=== PATIENT | male | born 1955 | race African-American/Black ===

== ENCOUNTER 2017-06-18 05:18 | Inpatient (IN) | payer OTHER ==
[2017-06-18 05:50] LABS: #Basophils 0.1 thou/uL (0.0-0.2); #Eosinphils 0.4 thou/uL (0.0-0.7); #Lymphocytes 2.2 thou/uL (1.20-3.40); #Monocytes 1.1 thou/uL (0.11-0.59); #Neutrophils 7.5 thou/uL (1.40-6.50); %Basophils 0.6 % (0.0-1.0); %Eosinophils 3.3 % (0.0-10.0); %Lymphocytes 19.6 % (21.0-51.0); %Monocytes 9.8 % (0.0-10.0); %Neutrophils 66.7 % (42.0-75.0); Hemoglobin 15.9 g/dL (14.0-18.0); Mean Corpuscular HGB CONC 32.8 g/dL (32.0-36.0); Mean Corpuscular Hemoglobin 30.6 pg (27.0-31.0); Mean Corpuscular Volume 93.4 fl (80.0-94.0); Mean Platelet Volume 9.8 fL (7.4-10.4); Platelet Count 164 thou/uL (130-400); RBC Distribution Width 13.2 % (11.5-14.5); Red Blood Cell (RBC) Count 5.18 mill/uL (4.70-6.10); White Blood Cell (WBC) Count 11.2 thou/uL (4.8-10.8)
[2017-06-18] MEDS ORDERED: Nitroglycerin 2% Ointment 1 INCH/1 GM Packet ONE (06:04)
[2017-06-18 06:06] LABS: ALT (SGPT) 46 U/L (8-55); AST (SGOT) 39 U/L (5-34); Albumin 3.4 g/dL (3.5-5.0); Alkaline Phosphatase 158 U/L (40-150); Anion Gap 13 mmol/L (10-20); BUN (Urea Nitrogen) 19 mg/dL (8.4-25.7); Bilirubin, Total 0.4 mg/dL (0.2-1.2); CK (CPK) 137 U/L (30-200); Calc. Creatinine Clearance 0 mL/min (70-130); Calcium 8.6 mg/dL (7.8-10.44); Carbon Dioxide 16 mmol/L (22-29); Chloride 110 mmol/L (98-107); Estimated GFR-MDRD 59; Globulin 3.3 g/dL (2.4-3.5); Glucose 129 mg/dL (70-105); Potassium 4.7 mmol/L (3.5-5.1); Protein, Total 6.7 g/dL (6.0-8.3); Sodium 134 mmol/L (136-145)
[2017-06-18 06:11] LABS: CKMB 2.9 ng/mL (0-6.6); Troponin I 0.075 ng/mL (< 0.028)
[2017-06-18] MEDS ORDERED: Acetaminophen 500 MG TAB ONE (06:22)
--- NOTE | 2017-06-18 08:18 | RAD ---
CHEST 1 VIEW: Date: 06/18/17 HISTORY: 61-year-old male with history of chest pain for 2 days, difficulty breathing, hypertensive. COMPARISON: 01/17/11. FINDINGS: Postop midline sternotomy. Monitor leads overlie the chest. Bilateral alveolar and interstitial opaci ty changes throughout both lungs, particularly the mid and lower lung zones and perihilar regions wit h some bilateral pleural effusions, evidence for some bilateral vascular congestion and pulmonary davion ma. These findings are new from the prior 2010 study. IMPRESSION: Evidence for bilateral pulmonary edema and vascular congestion. Continue short-term follow-up. POS: ALEX
[2017-06-18] MEDS ORDERED: Ondansetron HCl/PF 4 MG/2 ML Vial IVP PRN ×2 (08:34→08:38)
[2017-06-18] MEDS ORDERED: Acetaminophen 325 MG TAB PO PRN ×2 (08:34→08:38)
[2017-06-18] MEDS ORDERED: Ondansetron ODT 4 MG TAB PO PRN ×2 (08:34→08:38)
[2017-06-18] MEDS ORDERED: Labetalol 100 MG/20 ML MDV SLOW IVP PRN (08:35)
[2017-06-18] MEDS ORDERED: Artificial Tears 18 DROP/0.9 ML EA EYE PRN (08:38)
[2017-06-18] MEDS ORDERED: Mag-Al 1200 mg/1200 mg/30 ML UDCUP PO PRN (08:38)
[2017-06-18] MEDS ORDERED: hydrALAZINE 20 MG/ML VIAL SLOW IVP PRN (08:38)
[2017-06-18] MEDS ORDERED: Sodium Chloride 0.65% Nasal 44 ML BOT EA NARE PRN (08:38)
[2017-06-18] MEDS ORDERED: Milk Of Magnesia 30 ML UDCUP PO PRN (08:38)
[2017-06-18] MEDS ORDERED: Eucerin (Mineral Oil/Petrolatum,White) 30 gm Jar TOP PRN (08:38)
[2017-06-18] MEDS ORDERED: Loperamide HCl 2 MG CAP PO PRN (08:38)
[2017-06-18] MEDS ORDERED: Senokot 8.6 MG TAB PO PRN (08:38)
[2017-06-18] MEDS ORDERED: Zolpidem Tartrate 5 MG TAB PO PRN (08:38)
[2017-06-18] MEDS ORDERED: Diabetic Tussin 200 MG/10 ML UDCUP PO PRN (08:38)
[2017-06-18] MEDS ORDERED: Loratadine 10 MG TAB PO PRN (08:38)
[2017-06-18] MEDS ORDERED: Chloraseptic Spray 180 ml Bottle PO PRN (08:38)
[2017-06-18] MEDS ORDERED: Furosemide 40 MG TAB PO SCH (09:00)
[2017-06-18] MEDS ORDERED: Heparin 5,000 UNITS/ML VIAL SC SCH ×2 (09:00)
[2017-06-18] MEDS ORDERED: Furosemide 20 MG TAB PO SCH (09:00)
[2017-06-18] MEDS ORDERED: Enoxaparin Sodium 80 MG/0.8 ML SYRINGE SC SCH (09:00)
[2017-06-18] MEDS ORDERED: HumaLOG 300 UNITS/3 ML VIAL SC PRN ×2 (09:14)
[2017-06-18] MEDS ORDERED: Dextrose 50% Abboject 50 ML SYRINGE SLOW IVP PRN (09:14)
[2017-06-18] MEDS ORDERED: Dextrose 5% in Water 1,000 ML IV PRN (09:14)
[2017-06-18] MEDS ORDERED: Lisinopril 5 MG TAB PO SCH (09:30)
[2017-06-18] MEDS ORDERED: glipiZIDE 5 MG TAB PO SCH (09:30)
[2017-06-18] MEDS ORDERED: Carvedilol 6.25 MG TAB PO SCH (09:30)
--- NOTE | 2017-06-18 09:42 | HP ---
PRIMARY CARE PHYSICIAN: Karen Acuña M.D. REASON FOR ADMISSION: Chest pain, dyspnea. HISTORY OF PRESENT ILLNESS: A 61-year-old -[place] male who has underlying history of diabetes type 2, hypertension, coronary artery disease, CABG, as well as bilateral above knee amputee who came to emergency room with a complaint of chest pain and dyspnea. Patient reports that chest pain started on Sunday. He was having intermittent chest pain on substernal area without any radiation associated with shortness of breath. He denies any nausea, vomiting, and diaphoresis. The patient is bilateral amputee and that is why he cannot tell me about chest pain gets worse with exertion, but he has orthopnea. He cannot lie down flat because of shortness of breath. He also complains bilateral lower extremity pain nearby amputation stump. He denies any fever or chills. He denies any flu-like illness. He does have cough which is dry in nature. He denies any sore throat, upper respiratory infection. He denies any constipation or diarrhea. He denies any melena or hematochezia. Patient reports that he is following Dr. Moraels as Cardiology and Dr. Riley Cardenas did bypass surgery several years ago. He moved to [place] and recently came back to our town. He is following Dr. Domenico Jones as a primary care physician. When patient presented to emergency room, he was hypertensive, tachycardic and his blood sugar was 196. The patient was given aspirin 324 mg and 3 doses of nitro by paramedics without any relief of his pain. In the emergency room, routine blood tests showed elevated troponins, elevated BNP and renal insufficiency. Patient reports that he is not aware of renal problem, but he has seen a manager meeting in the past. He denies taking NSAID. He denies any melena or hematochezia. He denies any UTI symptoms. He ambulates with electric wheelchair. ALLERGIES: No known drug allergy. CURRENT HOME MEDICATIONS: Glipizide 10 mg p.o. daily, Lipitor 10 mg p.o. daily , aspirin 81 mg p.o. daily, Lyrica 100 mg p.o. twice day. Patient did not bring medication. This is based on emergency room record. REVIEW OF SYSTEMS: The following complete review of systems was negative, unless otherwise mentioned in the HPI or below: Constitutional: Weight loss or gain, ability to conduct usual activities. Skin: Rash, itching. Eyes: Double vision, pain. ENT/Mouth: Nose bleeding, neck stiffness, pain, tenderness. Cardiovascular: Palpitations, dyspnea on exertion, orthopnea. Respiratory: Shortness of breath, wheezing, cough, hemoptysis, fever or night sweats. Gastrointestinal: Poor appetite, abdominal pain, heartburn, nausea, vomiting, constipation, or diarrhea. Genitourinary: Urgency, frequency, dysuria, nocturia. Musculoskeletal: Pain, swelling. Neurologic/Psychiatric: Anxiety, depression. Allergy/Immunologic: Skin rash, bleeding tendency. Please see my HPI for pertinent positive and negative. All other review of systems reviewed and negative except as mentioned in the HPI. PAST MEDICAL HISTORY: Diabetes type 2, hypertension, dyslipidemia, coronary artery disease with history of CABG, chronic congestive heart failure. PAST SURGICAL HISTORY: Bilateral above knee amputation, CABG x4, back surgery to remove the disk. PAST PSYCHIATRIC HISTORY: Reviewed and negative. SOCIAL HISTORY: The patient is abusing marijuana periodically. He smokes about 1 pack per day. He denies any other illicit drug abuse. He drinks alcohol on weekend. FAMILY HISTORY: Diabetes, hypertension, and coronary artery disease runs among several family members. EMERGENCY ROOM COURSE: Patient is given Lopressor 10 mg, nitropatch 1 inch and Tylenol 1 gram. PHYSICAL EXAMINATION: VITAL SIGNS: On arrival, blood pressure 188/98, pulse 104, respiratory rate 20 , temperature 98.4, saturation 95% on room air, and weight 67.8 kilograms. GENERAL: Patient is currently alert, awake, no obvious acute distress, hypertensive. HEAD: Normocephalic, atraumatic. EYES: Pupils round and reactive to light. Extraocular muscle intact. ENT: Oropharynx within normal limits. Moist mucous membranes. No oral lesions , no pharyngeal erythema, no exudate. NECK: Supple, no JVD, no thyromegaly, no carotid bruit, no jugular venous distention. LUNGS: Clear to auscultation. Midsternal scar noted. No wheeze, no rhonchi, no rales. CARDIAC: S1 and S2 regular. No gross murmur noted. No rub, no gallop. ABDOMEN: Soft, bowel sounds present, nontender, nondistended. No organomegaly , no mass, no suprapubic tenderness. BACK: Examination unremarkable, no CVA tenderness. EXTREMITIES: Upper extremity passive movements of all joints are normal. Lower extremity; bilateral above knee amputation noted. No edema. NEUROLOGIC: Patient is able to move all four limbs. No focal neurological deficit noted. SKIN: No skin rash. HEMATOLOGICAL SYSTEM: No lymphadenopathy. PSYCHIATRIC: Normal affect. IMAGING DATA AND SIGNIFICANT LABORATORY DATA: 1. EKG showing sinus tachycardia, premature atrial complexes, left atrial enlargement, nonspecific ST-T changes. 2. Chest x-ray based on my review, bilateral pulmonary edema and pulmonary vascular congestion. 3. CBC: WBC 11.2, hemoglobin 15.9, platelet 164. 4. BMP: Sodium 134, potassium 4.7, chloride 110, carbon dioxide 16, anion gap 13, BUN 19, creatinine 1.48, glucose 129, and calcium 8.6. 5. LFT: Protein 6.7, albumin 3.4, alkaline phosphatase is 158, AST 39, and ALT 46. ASSESSMENT AND PLAN/IMPRESSION: 1. Chest pain. Patient's chest pain description is atypical anginal. He has underlying coronary artery disease with coronary artery bypass grafting. Currently, troponin is elevated and he has nonspecific ST-T changes on EKG. The patient will need evaluation with serial cardiac enzymes. We will consult Cardiology for opinion. Further decision regarding stress test. We will defer to Cardiology. Meanwhile, we will continue with aspirin 325 mg p.o. daily, nitropatch q.8 hourly, Lipitor 10 mg p.o. at bedtime and will continue Lovenox 1 mg per kg subcu twice daily. check lipid profile for risk stratification. We will also check urine drug screen. 2. Acute on chronic congestive heart failure exacerbation, suspecting systolic heart failure from ischemic cardiomyopathy. The patient has orthopnea, elevated BNP and bilateral pulmonary edema and pulmonary vascular congestion. This patient will need Lasix 20 mg IV b.i.d. and we will monitor renal function and replace electrolytes as needed basis. We will obtain echocardiography to assess ejection fraction and other structural abnormality. We will control his blood pressure with nitropatch. We will also add Coreg 6.25 mg p.o. b.i.d. We will also add Lisinopril 5 mg p.o. daily. 3. Hypertension with hypertensive urgency. At this point, we are starting Lasix 20 mg IV b.i.d., nitropatch as well as we are also adding lisinopril and Coreg on his regimen and we will titrate blood pressure medications. 4. Coronary artery disease. We will continue aspirin 325 mg p.o. daily, Lipitor 10 mg p.o. at bedtime, nitro patch q.8 hourly and patient is also started on Coreg and lisinopril. Cardiology consulted. 5. Bilateral above knee amputations. The patient will need supportive care while in hospital. 6. Chronic kidney disease stage 3. We will monitor renal function. Avoid nephrotoxin agent. 7. Elevated troponin likely due to demand ischemia from hypertensive urgency versus angina. We will do serial cardiac enzymes x3 and rule out acute coronary syndrome. 8. Abnormal liver function tests, likely related with his alcohol abuse. We will check hepatitis profile tomorrow morning. 9. Mild metabolic acidosis. We will consider adding sodium bicarbonate 325 mg p.o. b.i.d. 10. Peripheral neuropathy. Continue Lyrica 50 mg p.o. twice day. 11. Diabetes type 2. We will continue glipizide 5 mg p.o. b.i.d., insulin as per sliding scale per protocol. Diabetic diet will be given. 12. Deep venous thrombosis prophylaxis; Lovenox 1 mg per kg subcu twice daily for possible angina. 13. Gastrointestinal prophylaxis, Pepcid 20 mg p.o. b.i.d. 14. Code status: The patient is FULL CODE. Patient does not have any surrogate decision maker. 15. Tobacco abuse disorder: Smoking cessation counselling given, will offer nicotin patch if needed. DISPOSITION PLAN: We are expecting patient's stay in the hospital more than 2 midnights. Plan of care discussed with the patient in detail. SHARATH
[2017-06-18 09:44] LABS: Troponin I 0.092 ng/mL (< 0.028)
[2017-06-18] MEDS: Enoxaparin Sodium 80 MG/0.8 ML SYRINGE SC SCH ×2 (09:48→21:57)
[2017-06-18] MEDS: Pregabalin 50 MG CAP PO SCH ×2 (09:49→21:54)
[2017-06-18] MEDS: Aspirin 325 MG TAB PO SCH (09:50)
[2017-06-18] MEDS: Famotidine 20 MG TAB PO SCH ×2 (09:50→21:56)
[2017-06-18] MEDS: HYDROcodone/Acetaminophen 5/325 mg Tablet PO PRN ×3 (11:37→21:58)
[2017-06-18 11:56] LABS: Platelet Count 156 thou/uL (130-400)
[2017-06-18 12:19] LABS: Troponin I 0.082 ng/mL (< 0.028)
[2017-06-18] MEDS: Nitroglycerin 2% Ointment 1 INCH/1 GM Packet TOP SCH ×2 (14:32→21:56)
[2017-06-18] MEDS: Furosemide 20 MG/2 ML VIAL SLOW IVP SCH (14:32)
[2017-06-18 16:59] LABS: Bilirubin Negative (Negative); Blood, Urine Negative (Negative); Clarity CLEAR (Clear); Glucose, Urine (Dipstick) Negative (Negative); Leukocyte Negative (Negative); Nitrite Negative (Negative); Protein, Urine (Dipstick) 30 mg/dL (Neg-Trace); Specific Gravity, Urine 1.012 (1.002-1.036); pH, Urine 5.5 (5.0-9.0)
[2017-06-18 17:03] LABS: Bacteria/HPF None Seen HPF (None Seen); Hyaline Casts/LPF 0-3 HYALINE CAST LPF (0-3 Hyaline); RBC/HPF 0-3 HPF (0-3); Squamous Epithelial None Seen HPF (0-3); WBC/HPF None Seen HPF (0-3)
[2017-06-18 17:09] LABS: Amphetamine Not Detected (NotDetected); Barbiturates Screen Not Detected (NotDetected); Benzodiazepine Screen Not Detected (NotDetected); Cocaine Metabolite Screen Detected (NotDetected); Medtox Control Line Valid? VALID (VALID); Medtox Reader # READER 1; Methadone Not Detected (NotDetected); Methamphetamine Not Detected (NotDetected); Opiate Screen Not Detected (NotDetected); Oxycodone Screen Not Detected (NotDetected); Phencyclidine (PCP) Not Detected (NotDetected); THC/Cannabinoid Screen Detected (NotDetected); Tricyclic Screen Not Detected (NotDetected)
[2017-06-18] MEDS: glipiZIDE 5 MG TAB PO SCH (17:40)
[2017-06-18] MEDS: Carvedilol 6.25 MG TAB PO SCH (17:41)
[2017-06-18] MEDS: Atorvastatin Calcium 10 MG TAB PO SCH (21:56)
--- NOTE | 2017-06-19 03:00 | CON ---
DATE OF CONSULTATION: 06/18/2017 HISTORY OF PRESENT ILLNESS: Prudencio Calderon is a 61-year-old black male, who in 04/2009 underwent CABG x4 with MORRIS to the LAD and vein grafts to diagonal, ramus and right posterior descending by Dr. Riley Cardenas. In 12/2009, he underwent flutter ablation. He apparently had some type of intervention performed in [place] and then moved back to this area and I saw him again in 2010. He underwent catheterization and MORRIS to LAD and vein graft to right posterior descending were patent. The diagonal and ramus grafts were occluded. One of the occluded grafts had a stent in it. Integrity 2.25 x 18 and 2.5 x 22 were placed in the [place] ramus. He apparently moved back to [place], I did not see him again. I saw him in the office in 04/19/2017 for the first time in many years. He was complaining of lower chest pressure while in bed, lasting 4-5 minutes. He did not have any chest discomfort with wheeling himself in his wheelchair. He denied any shortness of breath, nausea or vomiting. He underwent echocardiography, which revealed the study to be technically difficult. There was mild concentric left ventricular hypertrophy, ejection fraction of 45% to 50%, moderate mitral regurgitation, evidence for diastolic dysfunction and mild tricuspid regurgitation. He also underwent Lexiscan Cardiolite testing, which revealed no evidence of ischemia or fixed defect. There was severe proximal to distal septal hypokinesis (CABG) and mild global hypokinesis. There was normal myocardial thickening. He was seen again in the office on 05/15/2017. He did not bring his medications and apparently his access assoc had changed many of them and it was very difficult to make clinical decisions regarding what to do without knowing what medications he was taking. His cholesterol was elevated and his atorvastatin was increased from 40 to 80. He now presents complaining of increased shortness of breath. He also would have pleuritic chest pain with his shortness of breath. If he would take shallow breaths, he would not have any pain; however, with a deep breath, he would have a somewhat sharp pain in his chest. He denied any cough, fever, or chills. PAST MEDICAL HISTORY: Hypertension, hypercholesterolemia, diabetes, chronic kidney disease, atherosclerotic peripheral vascular disease. OPERATIONS: CABG, drug-eluting stent placement in the ramus, atrial flutter ablation, aortobifemoral bypass, bilateral iliac stents, back surgery, bilateral [id number] amputation. MEDICATIONS: Aspirin daily, atorvastatin 80 mg daily, chlorthalidone 25 daily, glipizide 2.5 daily, lisinopril 20 daily, metformin 1000 b.i.d., Lyrica 100 daily. ALLERGIES: None. SOCIAL HISTORY: He smokes 1 pack per day. He uses marijuana and cocaine. FAMILY HISTORY: Coronary artery disease. REVIEW OF SYSTEMS: Twelve-point review of systems is otherwise unremarkable. PHYSICAL EXAMINATION: VITAL SIGNS: Blood pressure 143/84, pulse of 93. HEENT: PERRL. NECK: Supple. CHEST: Clear. CARDIAC: S1 and S2 are normal, without any S3, S4 or murmurs. Carotid upstrokes are normal without bruits. ABDOMEN: Normal bowel sounds without tenderness or organomegaly. EXTREMITIES: Revealed bilateral AKA without edema. NEUROLOGIC: Grossly intact. SKIN: Warm and dry. LABORATORY AND DIAGNOSTIC DATA: EKG reveals sinus tachycardia with premature atrial beats, nonspecific T-wave changes. Urine drug screen is positive for cannabinoids and cocaine. Hemoglobin 15.2, hematocrit 48.4, white count 11,200 , and platelets 164,000. BNP 332.8, troponin I 0.092. Sodium 134, potassium 4.7, chloride 110, carbon dioxide 26, BUN 19, creatinine 1.48, AST 32, ALT 46. LDL is 84 on atorvastatin 40, which was recently increased in the office to atorvastatin 80. IMPRESSION: 1. Shortness of breath, improved with diuresis. 2. Pleuritic chest pain, normal cardiolite last month. 3. CABG x4 in 04/2009 with MORRIS to LAD and RPDA vein patent. Ramus and diagonal stents were occluded. GEO placed in the [place] in 11/2010. 4. History of flutter ablation after CABG. 5. Hypertension. 6. Hypercholesterolemia with Atorvastatin increased to 80mg recently. 7. Smoker. 8. Cocaine abuse. 9. Bilateral AKA, peripheral vascular disease. History of aortobifemoral bypass and iliac stents. 10. Diabetes. 11. Positive family history. PLAN: The patient will continue to be diuresed. Echocardiogram will be reviewed. It is unclear what medications were stopped by his access assoc in April; however, I imagine it was probably Lasix, although that is not listed amongst his medications when he was seen in the office. He also has been somewhat noncompliant with his medicines and what he is actually taking. I feel that we should increase his atorvastatin to 80 mg like it was done when he was seen in the office. Also, he has been started on carvedilol 6.25 b.i.d. He will continue to be diuresed and his renal function needs to be watched very closely. His chest pain is pleuritic in nature and does not sound like angina. He also had a recent normal Cardiolite scan in the office and I feel he should be treated medically with diuresis and improvement in his respiratory status. SHARATH
[2017-06-19 05:13] LABS: INR-International Normal Ratio 1.2; Prothrombin Time 15.1 SEC (12.0-14.7)
[2017-06-19 05:14] LABS: #Basophils 0.1 thou/uL (0.0-0.2); #Eosinphils 0.4 thou/uL (0.0-0.7); #Lymphocytes 2.1 thou/uL (1.20-3.40); #Monocytes 0.9 thou/uL (0.11-0.59); #Neutrophils 5.8 thou/uL (1.40-6.50); %Basophils 0.7 % (0.0-1.0); %Lymphocytes 22.7 % (21.0-51.0); %Monocytes 9.7 % (0.0-10.0); %Neutrophils 62.9 % (42.0-75.0); Hemoglobin 14.9 g/dL (14.0-18.0); Mean Corpuscular Hemoglobin 30.1 pg (27.0-31.0); Mean Platelet Volume 10.4 fL (7.4-10.4); PTT 50.2 SEC (22.9-36.1); Platelet Count 145 thou/uL (130-400); RBC Distribution Width 13.2 % (11.5-14.5); Red Blood Cell (RBC) Count 4.94 mill/uL (4.70-6.10); White Blood Cell (WBC) Count 9.2 thou/uL (4.8-10.8)
[2017-06-19 05:40] LABS: ALT (SGPT) 41 U/L (8-55); AST (SGOT) 39 U/L (5-34); Alkaline Phosphatase 129 U/L (40-150); Anion Gap 13 mmol/L (10-20); BUN (Urea Nitrogen) 23 mg/dL (8.4-25.7); Bilirubin, Total 0.4 mg/dL (0.2-1.2); Calc. Creatinine Clearance 48 mL/min (70-130); Calcium 8.4 mg/dL (7.8-10.44); Carbon Dioxide 17 mmol/L (22-29); Cardiac Risk 2.8 (Less than 4.5); Chloride 109 mmol/L (98-107); Cholesterol 125 mg/dl (< 200 Desired); Estimated GFR-MDRD 53; Globulin 3.2 g/dL (2.4-3.5); Glucose 60 mg/dL (70-105); HDL Cholesterol 45 mg/dL (>60 Neg Risk); LDL Cholesterol, Calculated 71 mg/dL; Magnesium 1.8 mg/dL (1.6-2.6); Potassium 4.4 mmol/L (3.5-5.1); Protein, Total 6.2 g/dL (6.0-8.3); Sodium 135 mmol/L (136-145); Triglycerides 45 mg/dL (Less than 150)
[2017-06-19] MEDS: Nitroglycerin 2% Ointment 1 INCH/1 GM Packet TOP SCH ×3 (06:17→20:47)
[2017-06-19] MEDS: Furosemide 20 MG/2 ML VIAL SLOW IVP SCH ×2 (06:18→14:41)
[2017-06-19] MEDS: Lisinopril 5 MG TAB PO SCH (08:16)
[2017-06-19] MEDS: Aspirin 325 MG TAB PO SCH (08:16)
[2017-06-19] MEDS: Pregabalin 50 MG CAP PO SCH ×2 (08:16→20:46)
[2017-06-19] MEDS: glipiZIDE 5 MG TAB PO SCH ×2 (08:17→17:05)
[2017-06-19] MEDS: Carvedilol 6.25 MG TAB PO SCH ×2 (08:17→18:05)
[2017-06-19] MEDS: Enoxaparin Sodium 80 MG/0.8 ML SYRINGE SC SCH ×2 (08:18→20:45)
[2017-06-19] MEDS: Famotidine 20 MG TAB PO SCH ×2 (10:18→10:53)
[2017-06-19] MEDS: HYDROcodone/Acetaminophen 5/325 mg Tablet PO PRN ×2 (10:54→20:51)
--- NOTE | 2017-06-19 11:07 | PDOC.PN ---
- Subjective Encounter Start Date: 06/19/17 Encounter Start Time: 12:49 Subjective: No new complaints -: No acute events overnight. - Objective Resuscitation Status: Resuscitation Status FULL:Full Resuscitation MAR Reviewed: Yes Vital Signs & Weight: Vital Signs (12 hours) Temp Pulse Resp BP Pulse Ox 06/19/17 08:21 98.0 F 85 18 134/90 98 06/19/17 08:09 98.0 F 85 18 06/19/17 04:15 98.8 F 84 18 130/78 91 L 06/18/17 23:43 98 F 90 16 139/72 94 L Weight Weight 142 lb I&O: 06/18/17 06/19/17 06/20/17 06:59 06:59 06:59 Intake Total 1128 Output Total 1450 Balance -322 Result Diagrams: 06/19/17 04:47 06/19/17 04:47 Additional Labs: Accuchecks 06/19/17 06/19/17 06/18/17 10:13 06:02 20:58 POC Glucose 118 H 73 175 H 06/18/17 06/18/17 16:54 11:49 POC Glucose 94 95 Phys Exam - Physical Examination Constitutional: NAD HEENT: PERRLA, moist MMs, sclera anicteric Neck: no JVD, supple, full ROM Respiratory: no wheezing, no rales, no rhonchi, clear to auscultation bilateral Cardiovascular: RRR, no significant murmur, no rub Gastrointestinal: soft, non-tender, no distention, positive bowel sounds Musculoskeletal: pulses present, edema present Neurological: non-focal Psychiatric: normal affect, A&O x 3 Skin: no rash, normal turgor Dx/Plan (1) Acute on chronic systolic (congestive) heart failure Code(s): I50.23 - ACUTE ON CHRONIC SYSTOLIC (CONGESTIVE) HEART FAILURE Status : Acute (2) S/P CABG x 4 Status: Chronic (3) Chest pain Code(s): R07.9 - CHEST PAIN, UNSPECIFIED Status: Acute Qualifiers: Chest pain type: intercostal pain Qualified Code(s): R07.82 - Intercostal pain (4) DM2 (diabetes mellitus, type 2) Status: Acute Qualifiers: Diabetes mellitus complication status: with kidney complications Diabetes mellitus complication detail: with chronic kidney disease Chronic kidney disease stage: stage 3 (moderate) (5) HLD (hyperlipidemia) Code(s): E78.5 - HYPERLIPIDEMIA, UNSPECIFIED Status: Chronic Qualifiers: Hyperlipidemia type: other hyperlipidemia Qualified Code(s): E78.4 - Other hyperlipidemia (6) Tobacco abuse Code(s): Z72.0 - TOBACCO USE Status: Chronic (7) Cocaine abuse Code(s): F14.10 - COCAINE ABUSE, UNCOMPLICATED Status: Chronic (8) S/P AKA (above knee amputation) bilateral Code(s): Z89.611 - ACQUIRED ABSENCE OF RIGHT LEG ABOVE KNEE; Z89.612 - ACQUIRED ABSENCE OF LEFT LEG ABOVE KNEE Status: Chronic (9) Acute on chronic kidney failure Code(s): N17.9 - ACUTE KIDNEY FAILURE, UNSPECIFIED; N18.9 - CHRONIC KIDNEY DISEASE, UNSPECIFIED Status: Acute Qualifiers: Acute renal failure type: unspecified Chronic kidney disease stage: stage 3 (moderate) Qualified Code(s): N17.9 - Acute kidney failure, unspecified; N18.3 - Chronic kidney disease, stage 3 (moderate); N18.3 - Chronic kidney disease, stage 3 (moderate) - Plan cont current plan of care, DVT proph w/lovenox Improving with diuresis -: Renal fuction improving also- likely had cardiorenal syndrome. -: f/u Cardiology recs. * . Review of Systems - Medications/Allergies Allergies/Adverse Reactions: Allergies Allergy/AdvReac Type Severity Reaction Status Date / Time No Known Allergies Allergy Verified 06/18/17 11:23 Medications: Current Medications Acetaminophen (Tylenol) 650 mg PO Q4H PRN PRN Reason: Headache/Fever or Pain Hydrocodone Bitart/Acetaminophen ([place] 5/325) 1 tab PO Q4H PRN PRN Reason: Moderate Pain (4-6) Last Admin: 06/19/17 10:54 Dose: 1 tab Al Hydroxide/Mg Hydroxide (Maalox) 30 ml PO Q6H PRN PRN Reason: Heartburn or Indigestion Artificial Tears (Tears Naturale) 0 drop EA EYE PRN PRN PRN Reason: Dry Eyes Aspirin (Aspirin) 325 mg PO DAILY [facility] Last Admin: 06/19/17 08:16 Dose: 325 mg Atorvastatin Calcium (Lipitor) 10 mg PO HS [facility] Last Admin: 06/18/17 21:56 Dose: 10 mg Carvedilol (Coreg) 6.25 mg PO BID-WM [facility] [place] Last Admin: 06/19/17 08:17 Dose: 6.25 mg Dextrose/Water (Dextrose 50%) 25 gm SLOW IVP PRN PRN PRN Reason: Hypoglycemia Enoxaparin Sodium (Lovenox) 70 mg SC 0900,2100 [facility] [place] Last Admin: 06/19/17 08:18 Dose: 70 mg Famotidine (Pepcid) 20 mg PO 0900 [facility] [place] Last Admin: 06/19/17 10:53 Dose: 20 mg Furosemide (Lasix) 20 mg SLOW IVP 0600,1400 [facility] [place] Last Admin: 06/19/17 06:18 Dose: 20 mg Glipizide (Glucotrol) 5 mg PO BID-AC [facility] [place] Last Admin: 06/19/17 08:17 Dose: 5 mg Glucagon (Glucagon) 1 mg IM PRN PRN PRN Reason: Hypoglycemia Guaifenesin (Robitussin Sf) 200 mg PO Q4H PRN PRN Reason: Cough Last Admin: 06/19/17 10:54 Dose: 200 mg Hydralazine HCl (Apresoline) 10 mg SLOW IVP Q4H PRN PRN Reason: Systolic BP > 180 Dextrose/Water (D5w) 1,000 mls @ 0 mls/hr IV .Q0M PRN; As Directed PRN Reason: Hypoglycemia Insulin Human Lispro (Humalog) 0 units SC .MODERATE SLIDING SC PRN PRN Reason: Moderate Correctional Scale Insulin Human Lispro (Humalog) 0 units SC .BEDTIME SLIDING SC PRN PRN Reason: Bedtime Correctional Scale Lisinopril (Zestril) 5 mg PO DAILY [facility] [place] Last Admin: 06/19/17 08:16 Dose: 5 mg Loperamide HCl (Imodium) 2 mg PO PRN PRN PRN Reason: Diarrhea/Loose Stools Loratadine (Claritin) 10 mg PO DAILYPRN PRN PRN Reason: Sinus Symptoms Magnesium Hydroxide (Milk Of Magnesium) 30 ml PO DAILYPRN PRN PRN Reason: Constipation Mineral Oil/White Petrolatum (Eucerin Cream) 0 gm TOP BIDPRN PRN PRN Reason: Dry Skin Nitroglycerin (Nitro-Bid 2% Ointment) 0.5 inch TOP Q8HR [facility] Last Admin: 06/19/17 06:17 Dose: 0.5 inch Ondansetron HCl (Zofran Odt) 4 mg PO Q6H PRN PRN Reason: Nausea/Vomiting Ondansetron HCl (Zofran) 4 mg IVP Q6H PRN PRN Reason: Nausea/Vomiting Phenol (Chloraseptic [place] 180 Ml Bot) 0 ml PO PRN PRN PRN Reason: Sore Throat Pregabalin (Lyrica) 50 mg PO BID [facility] Last Admin: 06/19/17 08:16 Dose: 50 mg Senna (Senokot) 2 tab PO HSPRN PRN PRN Reason: Constipation Sodium Chloride ([place] Nasal [place] 0.65%) 0 ml EA NARE QIDPRN PRN PRN Reason: Nasal Congestion Sodium Chloride (Flush - Normal Saline) 10 ml IVF Q12HR [facility] [place] Last Admin: 06/19/17 08:18 Dose: 10 ml Sodium Chloride (Flush - Normal Saline) 10 ml IVF PRN PRN PRN Reason: Saline Flush Last Admin: 06/19/17 06:18 Dose: 10 ml Zolpidem Tartrate (Ambien) 5 mg PO HSPRN PRN PRN Reason: Insomnia
[2017-06-19] MEDS: Atorvastatin Calcium 10 MG TAB PO SCH (20:46)
[2017-06-20 04:49] LABS: #Basophils 0.1 thou/uL (0.0-0.2); #Eosinphils 0.4 thou/uL (0.0-0.7); #Monocytes 1.1 thou/uL (0.11-0.59); %Basophils 1.3 % (0.0-1.0); %Eosinophils 5.1 % (0.0-10.0); %Lymphocytes 34.7 % (21.0-51.0); %Monocytes 12.3 % (0.0-10.0); %Neutrophils 46.6 % (42.0-75.0); Hemoglobin 15.2 g/dL (14.0-18.0); Mean Corpuscular HGB CONC 31.7 g/dL (32.0-36.0); Mean Corpuscular Volume 94.5 fl (80.0-94.0); Mean Platelet Volume 9.9 fL (7.4-10.4); Platelet Count 160 thou/uL (130-400); RBC Distribution Width 13.2 % (11.5-14.5); Red Blood Cell (RBC) Count 5.05 mill/uL (4.70-6.10); White Blood Cell (WBC) Count 8.6 thou/uL (4.8-10.8)
[2017-06-20 05:03] LABS: Anion Gap 13 mmol/L (10-20); BUN (Urea Nitrogen) 26 mg/dL (8.4-25.7); Calc. Creatinine Clearance 39 mL/min (70-130); Calcium 8.9 mg/dL (7.8-10.44); Carbon Dioxide 23 mmol/L (22-29); Chloride 106 mmol/L (98-107); Estimated GFR-MDRD 46; Glucose 64 mg/dL (70-105); Potassium 4.5 mmol/L (3.5-5.1); Sodium 137 mmol/L (136-145)
[2017-06-20] MEDS: Furosemide 20 MG/2 ML VIAL SLOW IVP SCH (06:05)
[2017-06-20] MEDS: Nitroglycerin 2% Ointment 1 INCH/1 GM Packet TOP SCH ×3 (06:05→20:52)
[2017-06-20] MEDS: Enoxaparin Sodium 80 MG/0.8 ML SYRINGE SC SCH (08:30)
[2017-06-20] MEDS: Aspirin 325 MG TAB PO SCH (08:30)
[2017-06-20] MEDS: Famotidine 20 MG TAB PO SCH (08:30)
[2017-06-20] MEDS: Carvedilol 6.25 MG TAB PO SCH ×3 (08:30→19:36)
[2017-06-20] MEDS: glipiZIDE 5 MG TAB PO SCH (08:30)
[2017-06-20] MEDS: Lisinopril 5 MG TAB PO SCH (08:30)
[2017-06-20] MEDS: Pregabalin 50 MG CAP PO SCH ×2 (08:36→19:43)
[2017-06-20] MEDS: HYDROcodone/Acetaminophen 5/325 mg Tablet PO PRN ×2 (08:37→19:44)
--- NOTE | 2017-06-20 13:54 | PDOC.PN ---
- Subjective Encounter Start Date: 06/20/17 Encounter Start Time: 13:57 Subjective: No complaints today. Feels well -: No acute events overnight. - Objective Resuscitation Status: Resuscitation Status FULL:Full Resuscitation MAR Reviewed: Yes Vital Signs & Weight: Vital Signs (12 hours) Temp Pulse Resp BP BP Pulse Ox 06/20/17 12:30 97.7 F 75 18 126/71 94 L 06/20/17 08:30 70 138/81 06/20/17 07:45 97.9 F 70 18 95 06/20/17 07:26 97.9 F 70 18 138/81 95 06/20/17 04:00 98.2 F 82 16 136/85 100 Weight Weight 139 lb 8 oz I&O: 06/19/17 06/20/17 06/21/17 06:59 06:59 06:59 Intake Total 1128 1502 Output Total 1450 0275 Balance -645 -2584 Result Diagrams: 06/20/17 04:30 06/20/17 04:30 Additional Labs: Accuchecks 06/20/17 06/20/17 06/19/17 12:07 06:04 21:01 POC Glucose 72 63 L 147 H 06/19/17 19:08 POC Glucose 105 Phys Exam - Physical Examination Constitutional: NAD HEENT: PERRLA, moist MMs, sclera anicteric, oral pharynx no lesions Neck: no JVD, supple, full ROM Respiratory: no wheezing, no rales, no rhonchi, clear to auscultation bilateral Cardiovascular: RRR, no significant murmur, no rub Gastrointestinal: soft, non-tender, no distention, positive bowel sounds Musculoskeletal: no edema Neurological: non-focal Psychiatric: normal affect Skin: no rash, normal turgor Dx/Plan (1) Acute on chronic systolic (congestive) heart failure Code(s): I50.23 - ACUTE ON CHRONIC SYSTOLIC (CONGESTIVE) HEART FAILURE Status : Acute Plan: Improving with diuresis. Will switch to PO furosemide and monitor (2) Acute on chronic kidney failure Code(s): N17.9 - ACUTE KIDNEY FAILURE, UNSPECIFIED; N18.9 - CHRONIC KIDNEY DISEASE, UNSPECIFIED Status: Acute Qualifiers: Acute renal failure type: unspecified Chronic kidney disease stage: stage 3 (moderate) Qualified Code(s): N17.9 - Acute kidney failure, unspecified; N18.3 - Chronic kidney disease, stage 3 (moderate); N18.3 - Chronic kidney disease, stage 3 (moderate) Plan: Renal function worsening, likely 2/2 diuretics, therapeutic Lovenox and ACEi. Will switch to PO furosemide, discontinue Lovenox, ACEi and monitor renal function. (3) S/P CABG x 4 Status: Chronic (4) DM2 (diabetes mellitus, type 2) Status: Acute Qualifiers: Diabetes mellitus complication status: with kidney complications Diabetes mellitus complication detail: with chronic kidney disease Chronic kidney disease stage: stage 3 (moderate) Comment: Controlled. (5) HLD (hyperlipidemia) Code(s): E78.5 - HYPERLIPIDEMIA, UNSPECIFIED Status: Chronic Qualifiers: Hyperlipidemia type: other hyperlipidemia Qualified Code(s): E78.4 - Other hyperlipidemia (6) Tobacco abuse Code(s): Z72.0 - TOBACCO USE Status: Chronic (7) Cocaine abuse Code(s): F14.10 - COCAINE ABUSE, UNCOMPLICATED Status: Chronic (8) S/P AKA (above knee amputation) bilateral Code(s): Z89.611 - ACQUIRED ABSENCE OF RIGHT LEG ABOVE KNEE; Z89.612 - ACQUIRED ABSENCE OF LEFT LEG ABOVE KNEE Status: Chronic (9) Chest pain Code(s): R07.9 - CHEST PAIN, UNSPECIFIED Status: Resolved Qualifiers: Chest pain type: intercostal pain Qualified Code(s): R07.82 - Intercostal pain - Plan cont current plan of care, DVT proph w/heparin Continue diuresis -: Monitor creatinine. If improved, then can be discharged tomorrow. -: Glipizide held- patient's glucose in the 60s but asymptomatic. -: Wean off O2 * . Review of Systems - Medications/Allergies Allergies/Adverse Reactions: Allergies Allergy/AdvReac Type Severity Reaction Status Date / Time No Known Allergies Allergy Verified 06/18/17 11:23 Medications: Current Medications Acetaminophen (Tylenol) 650 mg PO Q4H PRN PRN Reason: Headache/Fever or Pain Hydrocodone Bitart/Acetaminophen ([place] 5/325) 1 tab PO Q4H PRN PRN Reason: Moderate Pain (4-6) Last Admin: 06/20/17 08:37 Dose: 1 tab Al Hydroxide/Mg Hydroxide (Maalox) 30 ml PO Q6H PRN PRN Reason: Heartburn or Indigestion Artificial Tears (Tears Naturale) 0 drop EA EYE PRN PRN PRN Reason: Dry Eyes Aspirin (Aspirin) 325 mg PO DAILY [facility] Last Admin: 06/20/17 08:30 Dose: 325 mg Atorvastatin Calcium (Lipitor) 10 mg PO HS [facility] Last Admin: 06/19/17 20:46 Dose: 10 mg Carvedilol (Coreg) 6.25 mg PO TID [facility] Dextrose/Water (Dextrose 50%) 25 gm SLOW IVP PRN PRN PRN Reason: Hypoglycemia Enoxaparin Sodium (Lovenox) 70 mg SC 0900,2100 [facility] Last Admin: 06/20/17 08:30 Dose: 70 mg Famotidine (Pepcid) 20 mg PO 0900 [facility] Last Admin: 06/20/17 08:30 Dose: 20 mg Furosemide (Lasix) 20 mg PO DAILY [facility] Glucagon (Glucagon) 1 mg IM PRN PRN PRN Reason: Hypoglycemia Guaifenesin (Robitussin Sf) 200 mg PO Q4H PRN PRN Reason: Cough Last Admin: 06/19/17 10:54 Dose: 200 mg Hydralazine HCl (Apresoline) 10 mg SLOW IVP Q4H PRN PRN Reason: Systolic BP > 180 Dextrose/Water (D5w) 1,000 mls @ 0 mls/hr IV .Q0M PRN; As Directed PRN Reason: Hypoglycemia Insulin Human Lispro (Humalog) 0 units SC .MODERATE SLIDING SC PRN PRN Reason: Moderate [place] Scale Insulin Human Lispro (Humalog) 0 units SC .BEDTIME SLIDING SC PRN PRN Reason: Bedtime [place] Scale Loperamide HCl (Imodium) 2 mg PO PRN PRN PRN Reason: Diarrhea/Loose Stools Loratadine (Claritin) 10 mg PO DAILYPRN PRN PRN Reason: Sinus Symptoms Magnesium Hydroxide (Milk Of Magnesium) 30 ml PO DAILYPRN PRN PRN Reason: Constipation Mineral Oil/White Petrolatum (Eucerin Cream) 0 gm TOP BIDPRN PRN PRN Reason: Dry Skin Nitroglycerin (Nitro-Bid 2% Ointment) 0.5 inch TOP Q8HR [facility] Last Admin: 06/20/17 06:05 Dose: 0.5 inch Ondansetron HCl (Zofran Odt) 4 mg PO Q6H PRN PRN Reason: Nausea/Vomiting Ondansetron HCl (Zofran) 4 mg IVP Q6H PRN PRN Reason: Nausea/Vomiting Phenol (Chloraseptic [place] 180 Ml Bot) 0 ml PO PRN PRN PRN Reason: Sore Throat Pregabalin (Lyrica) 100 mg PO BID [facility] Last Admin: 06/20/17 08:36 Dose: 100 mg Senna (Senokot) 2 tab PO HSPRN PRN PRN Reason: Constipation Sodium Chloride ([place] Nasal [place] 0.65%) 0 ml EA NARE QIDPRN PRN PRN Reason: Nasal Congestion Sodium Chloride (Flush - Normal Saline) 10 ml IVF Q12HR [facility] Last Admin: 06/20/17 10:02 Dose: Not Given Sodium Chloride (Flush - Normal Saline) 10 ml IVF PRN PRN PRN Reason: Saline Flush Last Admin: 06/20/17 06:05 Dose: 10 ml Zolpidem Tartrate (Ambien) 5 mg PO HSPRN PRN PRN Reason: Insomnia
[2017-06-20] MEDS: Heparin 5,000 UNITS/ML VIAL SC SCH ×4 (15:14→19:37)
[2017-06-20] MEDS: Atorvastatin Calcium 10 MG TAB PO SCH (19:36)
--- NOTE | 2017-06-20 23:05 | CON ---
NEPHROLOGY CONSULTATION NOTE DATE OF CONSULTATION: 06/20/2017 CONSULTING PHYSICIAN: ____. REASON FOR CONSULTATION: Chronic kidney disease. REASON FOR ADMISSION: Shortness of breath. HISTORY OF PRESENT ILLNESS: This is a 61-year-old male with a history of chronic kidney dise ase, on follow up with Dr. Duran, type 2 diabetes and hypertension, who came to the hospital with shor tness of breath and had elevated creatinine. The patient is on diuresis and creatinine was slight wo rsening. Family requested to be seen by Nephrology. No fever or chills. No nausea or vomiting. Th e patient is feeling better. PAST MEDICAL HISTORY: Positive for CHF, CKD, type 2 diabetes, hypertension and hyperlipidemia. PAST SURGICAL HISTORY: Below knee amputation, CABG and back surgery. HOME MEDICATIONS: Reviewed. ALLERGIES: No known drug allergies. SOCIAL HISTORY: No smoking, alcohol or illicit drug abuse. FAMILY HISTORY: No history of any kidney disease. REVIEW OF SYSTEMS: The following complete review of systems was negative, unless otherwise mentioned in the HPI or below: Constitutional: Weight loss or gain, ability to conduct usual activities. Skin: Rash, itching. Eyes: Double vision, pain. ENT/Mouth: Nose bleeding, neck stiffness, pain, tenderness. Cardiovascular: Palpitations, dyspnea on exertion, orthopnea. Respiratory: Shortness of breath, wheezing, cough, hemoptysis, fever or night sweats. Gastrointestinal: Poor appetite, abdominal pain, heartburn, nausea, vomiting, constipation, or diarr hea. Genitourinary: Urgency, frequency, dysuria, nocturia. Musculoskeletal: Pain, swelling. Neurologic/Psychiatric: Anxiety, depression. Allergy/Immunologic: Skin rash, bleeding tendency. PHYSICAL EXAMINATION: GENERAL: This is a well-built male in no apparent distress. VITAL SIGNS: Temperature 97.7, pulse 75, respiratory rate 18 and blood pressure 126/71. HEENT: Atraumatic and normocephalic. Oral mucosa is moist. NECK: Supple. No masses. CARDIOVASCULAR: S1 and S2 heard. Rate and rhythm regular. RESPIRATORY: Clear. ABDOMEN: Soft. MUSCULOSKELETAL: 1+ edema. DERMATOLOGIC: No skin rash. NEUROLOGIC: Alert and awake. PSYCHIATRIC: Mood and affect normal. LABORATORY AND X-RAY FINDINGS: Potassium is 4.5 and creatinine is 1.8 from his baseline of 1.4-1.6. ASSESSMENT AND PLAN: 1. Acute kidney injury secondary to diuresis cardiorenal syndrome. We will follow. 2. Cardiorenal syndrome 3. Hypertension. 4. Edema. 5. Anemia, mild. 6. We will monitor renal function. Avoid nephrotoxins. Thank you for the consult.
[2017-06-21 05:05] LABS: #Eosinphils 0.4 thou/uL (0.0-0.7); #Lymphocytes 2.7 thou/uL (1.20-3.40); #Monocytes 1.3 thou/uL (0.11-0.59); #Neutrophils 4.3 thou/uL (1.40-6.50); %Basophils 0.4 % (0.0-1.0); %Lymphocytes 30.7 % (21.0-51.0); %Monocytes 14.6 % (0.0-10.0); %Neutrophils 49.3 % (42.0-75.0); Hemoglobin 14.6 g/dL (14.0-18.0); Mean Corpuscular HGB CONC 31.5 g/dL (32.0-36.0); Mean Corpuscular Hemoglobin 29.7 pg (27.0-31.0); Mean Platelet Volume 10.2 fL (7.4-10.4); Platelet Count 149 thou/uL (130-400); RBC Distribution Width 13.1 % (11.5-14.5); Red Blood Cell (RBC) Count 4.93 mill/uL (4.70-6.10); White Blood Cell (WBC) Count 8.7 thou/uL (4.8-10.8)
[2017-06-21 05:13] LABS: Hemoglobin A1c 5.6 % (4.0-6.0)
[2017-06-21 05:16] LABS: Anion Gap 8 mmol/L (10-20); BUN (Urea Nitrogen) 28 mg/dL (8.4-25.7); Calc. Creatinine Clearance 36 mL/min (70-130); Calcium 8.9 mg/dL (7.8-10.44); Carbon Dioxide 26 mmol/L (22-29); Chloride 106 mmol/L (98-107); Estimated GFR-MDRD 42; Glucose 97 mg/dL (70-105); Potassium 4.9 mmol/L (3.5-5.1); Sodium 135 mmol/L (136-145)
[2017-06-21] MEDS: Nitroglycerin 2% Ointment 1 INCH/1 GM Packet TOP SCH ×2 (05:50→15:26)
[2017-06-21] MEDS: Aspirin 325 MG TAB PO SCH (08:25)
[2017-06-21] MEDS: Heparin 5,000 UNITS/ML VIAL SC SCH ×4 (08:25→15:26)
[2017-06-21] MEDS: Famotidine 20 MG TAB PO SCH (08:25)
[2017-06-21] MEDS: Pregabalin 50 MG CAP PO SCH (08:25)
[2017-06-21] MEDS: HYDROcodone/Acetaminophen 5/325 mg Tablet PO PRN ×2 (08:26→15:32)
[2017-06-21] MEDS: Carvedilol 6.25 MG TAB PO SCH ×2 (08:27→15:27)
[2017-06-21] MEDS ORDERED: Furosemide 20 MG TAB PO SCH (09:00)
--- NOTE | 2017-06-21 09:19 | RAD ---
CHEST 1 VIEW: HISTORY: CHF. Dyspnea. COMPARISON: 06/18/17. FINDINGS: Cardiac silhouette is magnified and upper limits of normal in size. Pulmonary vasculature remains en gorged, but less so than on the prior study. Patchy infiltrates at the lung bases have improved. Me diastinum is midline with aortic calcification and postoperative changes. classroom monitor leads over lie the chest. IMPRESSION: Some interval improvement in pulmonary edema. POS: TPC
[2017-06-21 15:36] VITALS: BP 140/82
--- NOTE | 2017-06-21 15:56 | PDOC.PN ---
- Subjective Encounter Start Date: 06/21/17 Encounter Start Time: 15:54 Mr. Calderon was seen today in follow-up of CHF exacerbation. He says he feels much better and wants to go home. - Objective Resuscitation Status: Resuscitation Status FULL:Full Resuscitation MAR Reviewed: Yes Vital Signs & Weight: Vital Signs (12 hours) Temp Pulse Resp BP BP Pulse Ox 06/21/17 15:27 140/82 06/21/17 12:10 98.2 F 83 18 135/70 95 06/21/17 08:27 154/88 H 06/21/17 08:15 98.1 F 74 18 154/88 H 94 L 06/21/17 04:00 98.1 F 80 18 129/76 98 Weight Weight 139 lb 8 oz I&O: 06/20/17 06/21/17 06/22/17 06:59 06:59 06:59 Intake Total 1502 960 Output Total 3225 1700 Balance -1723 -740 Result Diagrams: 06/21/17 04:05 06/21/17 04:33 Additional Labs: Accuchecks 06/21/17 06/20/17 06/20/17 05:52 20:49 16:58 POC Glucose 92 171 H 58 L* Phys Exam - Physical Examination HEENT: PERRLA Respiratory: no wheezing, no rales, no rhonchi, clear to auscultation bilateral Cardiovascular: RRR, no significant murmur, no rub Gastrointestinal: soft, non-tender, positive bowel sounds Bilateral AKA Dx/Plan (1) CAD (coronary artery disease) Code(s): I25.10 - ATHSCL HEART DISEASE OF [place] CORONARY ARTERY W/O ANG PCTRS Status: Acute (2) Acute on chronic diastolic (congestive) heart failure Code(s): I50.33 - ACUTE ON CHRONIC DIASTOLIC (CONGESTIVE) HEART FAILURE Status : Acute (3) Acute on chronic kidney failure Code(s): N17.9 - ACUTE KIDNEY FAILURE, UNSPECIFIED; N18.9 - CHRONIC KIDNEY DISEASE, UNSPECIFIED Status: Acute Qualifiers: Acute renal failure type: unspecified Chronic kidney disease stage: stage 3 (moderate) Qualified Code(s): N17.9 - Acute kidney failure, unspecified; N18.3 - Chronic kidney disease, stage 3 (moderate); N18.3 - Chronic kidney disease, stage 3 (moderate) (4) DM2 (diabetes mellitus, type 2) Status: Acute Qualifiers: Diabetes mellitus complication status: with kidney complications Diabetes mellitus complication detail: with chronic kidney disease Chronic kidney disease stage: stage 3 (moderate) Comment: Controlled. (5) Cocaine abuse Code(s): F14.10 - COCAINE ABUSE, UNCOMPLICATED Status: Chronic - Plan * Acute on chronic diastolic heart failure- improved * Acute renal failure- likely from diuresing- discussed with Dr. Diaz- e can go home since he is insiting, and will follow-up as outpatient his renal function.
[2017-06-21 17:53] VITALS: TEMP 98
--- NOTE | 2017-06-21 18:12 | PRG ---
DATE OF SERVICE: 06/21/2017 NEPHROLOGY PROGRESS NOTE SUBJECTIVE: Patient was seen and examined at bedside and overnight events noted. Patient denies any shortness of breath or chest pain or palpitation. No history of nausea or vomiting or diarrhea or f ever or chills or cramps. OBJECTIVE: GENERAL: This is a well-built male in no apparent distress. VITAL SIGNS: Temperature 98.0, pulse 70, respiratory rate 18, blood pressure 140/82. HEENT: Atraumatic, normocephalic. Oral mucosa is moist. NECK: Supple. CARDIOVASCULAR: S1, S2 heard. Rate and rhythm regular. RESPIRATORY: Clear to auscultation. GASTROINTESTINAL: Abdomen is soft. MUSCULOSKELETAL: No tenderness. No edema. DERMATOLOGIC: No skin rash. NEUROLOGIC: Alert and awake and oriented x3. No focal neurologic deficits. Moving all the extremiti es. PSYCHIATRIC: Mood and affect normal. LABORATORY DATA: Potassium is 4.9, BUN 28, creatinine is 1.9. ASSESSMENT AND PLAN: 1. Acute kidney injury on chronic kidney disease, most likely from diuresis. Agree with reducing th e Lasix dose. Okay with discharging home 40 p.o. daily. Follow up with Dr. Duran. The patient wants to go home. 2. Cardiorenal syndrome as above. 3. Hypertension. 4. Edema. 5. Anemia. It is okay to discharge home. Follow with Dr. Duran in 1 week. Reduce Lasix dose 40 yuriy ly.
--- NOTE | 2017-06-22 01:08 | DIS ---
DATE OF ADMISSION: 06/18/2017 DATE OF DISCHARGE: 06/21/2017 PRIMARY CARE PHYSICIAN: Karen Acuña M.D. DISCHARGE DISPOSITION: Home. PRIMARY DISCHARGE DIAGNOSES: 1. Acute on chronic diastolic heart failure. 2. Acute renal failure. 3. Coronary artery disease. 4. Polysubstance abuse. 5. Diabetes mellitus, type 2. DISCHARGE MEDICATIONS: Include Lasix 40 mg daily, glipizide 2.5 mg daily, lisinopril 20 mg daily, ch lorthalidone 25 mg a day, atorvastatin 10 mg daily, and aspirin 81 mg daily. PROCEDURES DONE DURING ADMISSION: The patient had an echocardiogram, in which the ejection fraction was estimated at 45%-50%. There was [id number] mitral regurgitation and left ventricular fun ction was mildly depressed. CODE STATUS: FULL CODE. ALLERGIES: No known drug allergies. HOSPITAL COURSE: Mr. Calderon is a pleasant 61-year-old gentleman, who presented to the emergency room with complaints of chest pain and shortness of breath. He was admitted and evaluated by Cardiology. He was evaluated by Cardiology and had a recent Cardiolite, which was negative, and it was felt that it was not needed to repeat an evaluation for ischemic heart disease. He was placed on IV diuretics and improved over the course of the next few days with better shortness of breath and the chest pain resolved. He did have an elevation in his serum creatinine and this is likely as a result of the di uretics. He was adamant about leaving and going home, and as a result, he will be discharged home; h owever, he will need to follow up with Dr. Duran in a few days in order to recheck the renal function.
== END 2017-06-21 19:16 | disposition home or self-care (01) | DRG 291 ==
LOC: ERS 05:18 → OBSVTOIN 06:38 → 2NO 06:38
PROVIDERS: ADMIT Internal Medicine Infectious Disease; ATTEND Internal Medicine Infectious Disease
DX: I13.0 Hypertensive heart and chronic kidney disease with heart failure and stage 1 through stage 4 chronic kidney disease, or unspecified chronic kidney disease (principal); I50.33 Acute on chronic diastolic (congestive) heart failure; I47.2 Ventricular tachycardia; N17.9 Acute kidney failure, unspecified; E87.2 Acidosis; N18.3 Chronic kidney disease, stage 3 (moderate); E11.22 Type 2 diabetes mellitus with diabetic chronic kidney disease; E11.42 Type 2 diabetes mellitus with diabetic polyneuropathy; I25.10 Atherosclerotic heart disease of native coronary artery without angina pectoris; I16.0 Hypertensive urgency; Z79.84 Long term (current) use of oral hypoglycemic drugs; E78.5 Hyperlipidemia, unspecified; Z95.1 Presence of aortocoronary bypass graft; I70.209 Unspecified atherosclerosis of native arteries of extremities, unspecified extremity; F17.210 Nicotine dependence, cigarettes, uncomplicated; Z95.5 Presence of coronary angioplasty implant and graft; Z89.512 Acquired absence of left leg below knee; Z89.511 Acquired absence of right leg below knee; Z91.14 Patient's other noncompliance with medication regimen; F14.10 Cocaine abuse, uncomplicated; I34.0 Nonrheumatic mitral (valve) insufficiency; F12.10 Cannabis abuse, uncomplicated
CPT/HCPCS: 36415; 36416; 71045; 80048; 80053; 80061; 80306; 81001; 82550; 82553; 83036; 83735; 83880; 84484; 85025; 85610; 85730; 93005; 93306; 93798; 94760; 99406; A4216; J1644; J1650; J1940

== ENCOUNTER 2018-03-18 19:14 | Inpatient (IN) | payer OTHER ==
[~2018-03-18 19:14] MED LIST: ISOVUE-370 76%-LOCM 1 ML ONE
[2018-03-18 20:01] LABS: Lactate 1.84 mmol/L (0.50-2.20)
[2018-03-18 20:12] LABS: #Eosinphils 0.3 thou/uL (0.0-0.7); #Lymphocytes 1.6 thou/uL (1.20-3.40); #Monocytes 1.4 thou/uL (0.11-0.59); #Neutrophils 6.5 thou/uL (1.40-6.50); %Basophils 0.2 % (0.0-1.0); %Eosinophils 3.2 % (0.0-10.0); %Lymphocytes 16.6 % (21.0-51.0); %Monocytes 14.3 % (0.0-10.0); %Neutrophils 65.7 % (42.0-75.0); Hemoglobin 17.3 g/dL (14.0-18.0); Mean Corpuscular Hemoglobin 28.4 pg (27.0-31.0); Mean Corpuscular Volume 88.8 fL (78.0-98.0); Mean Platelet Volume 10.6 fL (7.4-10.4); Platelet Count 156 thou/uL (130-400); Red Blood Cell (RBC) Count 6.09 mill/uL (4.70-6.10); White Blood Cell (WBC) Count 9.9 thou/uL (4.8-10.8)
[2018-03-18 20:38] LABS: ALT (SGPT) 28 U/L (8-55); AST (SGOT) 33 U/L (5-34); Albumin 3.4 g/dL (3.5-5.0); Alkaline Phosphatase 193 U/L (40-150); Anion Gap 15 mmol/L (10-20); BUN (Urea Nitrogen) 19 mg/dL (8.4-25.7); Bilirubin, Total 0.7 mg/dL (0.2-1.2); CK (CPK) 151 U/L (30-200); Calc. Creatinine Clearance 0 mL/min (70-130); Calcium 8.8 mg/dL (7.8-10.44); Carbon Dioxide 24 mmol/L (22-29); Chloride 101 mmol/L (98-107); Estimated GFR-MDRD 42; Globulin 4.1 g/dL (2.4-3.5); Glucose 70 mg/dL (70-105); Lipase 35 U/L (8-78); Magnesium 1.8 mg/dL (1.6-2.6); Potassium 3.7 mmol/L (3.5-5.1); Protein, Total 7.5 g/dL (6.0-8.3); Sodium 136 mmol/L (136-145)
[2018-03-18 20:59] LABS: CKMB 3.5 ng/mL (0-6.6)
[2018-03-18] MEDS ORDERED: methylPREDNISolone Sod Succ/PF 125 MG/2 ML VIAL ONE (21:01)
--- NOTE | 2018-03-18 21:02 | RAD ---
RADIOGRAPH CHEST 1 VIEW: HISTORY: A 62-year-old male with chest pain and dyspnea. FINDINGS: There are no air space densities, pulmonary edema, pneumothorax, or cardiomegaly. The lateral costop hrenic angles are sharp. Interstitial markings are prominent at the lower lung zones. There are sourav rnotomy wires. IMPRESSION: 1. No acute cardiopulmonary findings. 2. Prominent interstitial markings. 3. Evidence of previous open heart surgery. mary [] POS: ELPIDIO
[2018-03-18 21:28] LABS: Bilirubin Negative (Negative); Blood, Urine Small (Negative); Clarity CLEAR (Clear); Glucose, Urine (Dipstick) 100 mg/dL (Negative); Leukocyte Negative (Negative); Nitrite Negative (Negative); Protein, Urine (Dipstick) 300 mg/dL (Neg-Trace); Specific Gravity, Urine 1.012 (1.002-1.036)
[2018-03-18 21:29] LABS: Bacteria/HPF None Seen HPF (None Seen); Hyaline Casts/LPF 0-3 HYALINE CAST LPF (0-3 Hyaline); Pathc Cast-AUWi Flag 0.43 (0-2.49); RBC/HPF 0-3 HPF (0-3); Squamous Epithelial 0-3 HPF (0-3); WBC/HPF 0-3 HPF (0-3)
--- NOTE | 2018-03-18 22:02 | CT ---
CT ARTERIOGRAM CHEST WITH IV CONTRAST AND 3D MIP IMAGING: HISTORY: Chest pain. Dyspnea. FINDINGS: There is good contrast opacification of the pulmonary arteries and thoracic aorta. Calcification in the arterial structures. Mild dependent parenchymal opacity at each posterior lung base, possibly re presenting atelectasis. Small amount of bilateral pleural fluid. IMPRESSION: 1. No CT evidence of pulmonary embolus. 2. Small bilateral pleural effusions. Cause is not evident. 3. Mild bibasilar atelectasis. 4. Atherosclerosis. POS: BST
[2018-03-18] MEDS ORDERED: Magnesium 2 GM/50 ML BAG (IN WATER) ONE (22:30)
[2018-03-18] MEDS ORDERED: Furosemide 40 MG/4 ML VIAL ONE (22:30)
[2018-03-18] MEDS ORDERED: Amiodarone HCl 150 MG in Dextrose 5% in Water 100 ML IVPB SCH (23:15)
[2018-03-19 00:11] LABS: Lactic Acid 1.8 mmol/L (0.5-2.2)
[2018-03-19 00:20] LABS: Troponin I 0.128 ng/mL (< 0.028)
[2018-03-19 01:14] VITALS: BMI 25.7
[2018-03-19 02:13] LABS: Troponin I 0.144 ng/mL (< 0.028)
[2018-03-19] MEDS ORDERED: HumaLOG 300 UNITS/3 ML VIAL SC PRN ×2 (03:28→17:00)
[2018-03-19] MEDS ORDERED: Senokot S 8.6-50 MG TAB PO PRN (03:28)
[2018-03-19] MEDS ORDERED: Bisacodyl 5 MG TAB PO PRN (03:28)
[2018-03-19] MEDS ORDERED: Acetaminophen 325 MG TAB PO PRN (03:28)
[2018-03-19] MEDS ORDERED: Dextrose 50% Abboject 50 ML SYRINGE SLOW IVP PRN (03:28)
[2018-03-19] MEDS ORDERED: Dextrose 5% in Water 1,000 ML IV PRN (03:28)
[2018-03-19] MEDS ORDERED: Zolpidem Tartrate 5 MG TAB PO PRN (03:28)
[2018-03-19] MEDS ORDERED: Diltiazem HCl 125 MG, Admixture Fee 1 EACH in Sodium Chloride 0.9% 100 ML IVPB SCH (03:45)
[2018-03-19] MEDS ORDERED: Heparin 25,000 units/D5W 500 ML IV SCH (04:00)
[2018-03-19 05:28] LABS: #Lymphocytes 0.5 thou/uL (1.20-3.40); #Monocytes 0.2 thou/uL (0.11-0.59); #Neutrophils 6.3 thou/uL (1.40-6.50); %Basophils 0.1 % (0.0-1.0); %Lymphocytes 7.3 % (21.0-51.0); %Monocytes 2.3 % (0.0-10.0); %Neutrophils 90.2 % (42.0-75.0); Hemoglobin 16.7 g/dL (14.0-18.0); Mean Corpuscular HGB CONC 32.3 g/dL (32.0-36.0); Mean Corpuscular Hemoglobin 28.5 pg (27.0-31.0); Mean Corpuscular Volume 88.1 fL (78.0-98.0); Mean Platelet Volume 10.8 fL (7.4-10.4); Platelet Count 150 thou/uL (130-400); RBC Distribution Width 13.7 % (11.5-14.5); Red Blood Cell (RBC) Count 5.86 mill/uL (4.70-6.10)
[2018-03-19 05:48] LABS: ALT (SGPT) 29 U/L (8-55); AST (SGOT) 31 U/L (5-34); Albumin 3.2 g/dL (3.5-5.0); Alkaline Phosphatase 189 U/L (40-150); Anion Gap 15 mmol/L (10-20); BUN (Urea Nitrogen) 20 mg/dL (8.4-25.7); Bilirubin, Total 0.7 mg/dL (0.2-1.2); Calc. Creatinine Clearance 34 mL/min (70-130); Calcium 8.8 mg/dL (7.8-10.44); Carbon Dioxide 21 mmol/L (22-29); Chloride 100 mmol/L (98-107); Estimated GFR-MDRD 39; Globulin 4.1 g/dL (2.4-3.5); Glucose 187 mg/dL (70-105); Potassium 4.5 mmol/L (3.5-5.1); Protein, Total 7.3 g/dL (6.0-8.3); Sodium 131 mmol/L (136-145)
[2018-03-19] MEDS: Famotidine 20 MG TAB PO SCH (07:43)
[2018-03-19] MEDS: Aspirin 81 mg Enteric Coated Tablet PO SCH (07:43)
[2018-03-19] MEDS: Famotidine/PF 20 mg/2ml Vial SLOW IVP SCH (07:46)
[2018-03-19] MEDS ORDERED: Pregabalin 50 MG CAP PO SCH (09:00)
[2018-03-19] MEDS ORDERED: Heparin 5,000 UNITS/ML VIAL SC SCH (09:00)
[2018-03-19] MEDS ORDERED: Atorvastatin Calcium 10 MG TAB PO SCH (09:00)
[2018-03-19] MEDS: HumaLOG 300 UNITS/3 ML VIAL SC PRN ×2 (11:54→16:35)
--- NOTE | 2018-03-19 13:14 | PDOC.EVN ---
Event Note - Event Note Event Note: Pt admitted to [facility], H&P dictated, but sees Dr. Carrington as PCP at [facility] so transferred care to our team this am. GAYE note to follow: HPI: Pt is a 62yo M with PMH of DM2, CAD s/p 4v CABG, Tobacco Abuse, HFrEF (EF 40-45% 10/2017), Cannabis Abuse, and HTN presenting for 1 wk hx of productive cough with reported subjective fevers at home and exertional angina that he describes as substernal, pressure like pain relieved by rest. He was found to have atrial arrhythmin in the 130's with PVC's in ED and started on diltiazem and Heparin ggt. He recieved Lasix 40mg IV for presumed CHF exacerbation with findings consistent on CXR- b/l pleural effusions. He was also given duonebs and prednisolone and started on Cefdinir. He also was found to have elevated troponins. He follows with Dr. Morales regularly, last seen 1 month ago. He reports daily cannabis use but denies cocaine use. ROS: General: Denies fever/chills, wt loss. HEENT: denies sore throat, nasal congestion, vision changes Resp: Reports chest congestion, SOB. Denies orthopnea CV: Reports exertional CP, palpitations, denies edema Abd: Denies n/v/c/d, abd pain MSK: Report phantom limb pain Neuro: Denies weakness or sensory deficit : Denies dysuria Psych: Denies depression, anxiety PMHx: As above FHx: none mentioned Social: smokes marijuana daily, denies other drug use. Occasional etoh use 1x/ 3wk. Smokes 1ppd for the last 10 years. Lives alone, completes ADL's on his own with minimal help (b/l AKA's) Surgical: b/l AKA, CABG, cervical disc surgery Medications: Per clinic chart Atorvastatin 20mg qHS Amitryptyline 25mg qHS Lasix 40mg qD Glipizide 2.5mg qD Chantix VS: T 99, P 107, R 16, O2sat 99% RA, BP 140/91 PE: General: Chronically ill AA in NAD, eating breakfast without difficulty HEENT: No oropharynx lesions or maxillary pressure Neck: no JVD or LAD Heart: Tachycardia with PVC's, no murmurs or extra heart sounds Lungs: ant auscultation with crackles at bases b/l and muffled breath sounds throughout, unlabored breathing Abd: soft, non-tender, BSx4 MSK: b/l AKA Skin: no rashes Neuro: moves all limbs, sensation intact Psych: AOx3 Labs: D-dimer 1.04 Trop 0.128, 0.144 Na 131 HCO3 21 Cr 2.11 (baseline 1.6) Glucose 187 Alk Phos 189 Imaging: CTA negative for PE, small b/l pleural effusions CXR prominent interstitial markings, b/l small pleural effusions A/P: 1. Bronchitis vs mild COPD exacerbation - no known dx of COPD, could also be 2/2 or worsened by chronic cannabis use - s/p steroids in ED, continue duonebs and cefdinir - Pulm consulted, appreciate recs 2. Mild CHF exacerbation - b/l Pleural effusions on CXR - echo 10/20 with EF 40-45% - s/p 40 IV Lasix in ED, restart home PO Lasix dose - daily wt, strict IO's 3. Atrial Arrhythmia - discussed with Dr. Bailey who reports known arrhythmia s/p ablation years back - Diltiazem and Heparin ggt discontinued by pulm, plan for PO diltiazem per Dr. Bailey for rate control since P>100. - Pt asymptomatic 4. Exertional Angina - Sees Dr. Morales regularly, trops trended upward, next trop pending - Could be related to acute lung disease 5. Elevated Trops - trend, no ST changes on EKG, likely demand 6. T2DM - last AIc in clinic is 6.5 on 11/2017, repeat pending - continue glipizide - expect rise in sugars with prednisolone in ED - SSI mild 7. HTN - not on any home meds at this time - continue to monitor 8. Tobacco Abuse - recently trying to quit with Chantix, no longer using, smoking 1ppd - encouraged cessation 9. Cannabis Abuse - discussed potential harmful effects and encouraged cessation - UDS pending 10. Phantom Leg Pain - continue Amitryptyline at bedtime 11. CAD s/p 4v CABG (1999) - daily ASA - increase Atorvastatin to 40mg daily Dispo: okay to transfer out of [facility] to telemetry. D/c pending respiratory and cards workup.
[2018-03-19 13:38] LABS: Hemoglobin A1c 6.8 % (4.0-6.0)
[2018-03-19 13:40] LABS: Amphetamine Detected (NotDetected); Barbiturates Screen Not Detected (NotDetected); Benzodiazepine Screen Not Detected (NotDetected); Cocaine Metabolite Screen Detected (NotDetected); Medtox Control Line Valid? VALID (VALID); Medtox Reader # READER 1; Methadone Not Detected (NotDetected); Methamphetamine Detected (NotDetected); Opiate Screen Not Detected (NotDetected); Oxycodone Screen Not Detected (NotDetected); Phencyclidine (PCP) Not Detected (NotDetected); THC/Cannabinoid Screen Detected (NotDetected); Tricyclic Screen Not Detected (NotDetected)
[2018-03-19 13:52] LABS: Troponin I 0.103 ng/mL (< 0.028)
--- NOTE | 2018-03-19 14:38 | CON ---
DATE OF CONSULTATION: 03/19/2018 TYPE OF CONSULTATION: Cardiac consult note. INDICATIONS FOR CONSULTATION: A 62-year-old gentleman with acute respiratory failure with probable pneumonia, COPD exacerbation with a long history of coronary artery disease and peripheral vascular disease and diabetes and hypertension and multiple other medical problems. We were asked to see him due to the slight elevation of cardiac enzymes, which most likely associated with demand ischemia due to his continued coughing and respiratory infections. He was admitted to the hospital earlier today due to continued coughing. He said he had a friend, who visited him from [place], and the person was very sick and he would not allow him to visit for very long until he would leave, and apparently, he became infected from that gentleman and now has probably pneumonia or respiratory tract infection, which started with upper respiratory tract infection, which resolved and had chronic coughing and now most likely congestion and possible pneumonia. His chest x-ray did show evidence of some congestion and some small pleural effusions with increased interstitial markings, but otherwise there were no significant abnormalities, but physical examination shows rhonchi as well as wheezing, most likely is suspicious for pneumonia or just significant bronchitis. His cardiac enzymes were slightly elevated. We were asked to see the patient. Also, he has some history of atrial flutter and fibrillation in the past. I believe he has undergone ablation also in the past. At this time, he has what appears to be atrial arrhythmias as the patient in mainly sinus rhythm but occasional PACs. I do not see any evidence of any flutter at this time. I believe he had a flutter ablation also, but at times appears to have intermittent atrial fibrillation. His past medical history is significant for coronary artery disease. He has undergone bypass surgery x4 in 2009. He had a MORRIS to the left anterior descending artery with saphenous vein graft to the diagonal ramus and to the right posterior descending artery. In 2009, he also had a flutter ablation. He states his last cardiac catheterization was in 2010. At which time, he had patent MORRIS to the LAD, and vein graft to the right posterior descending artery was also patent. The other grafts, the diagonal and ramus branch apparently were occluded and one of the occluded grafts also had a stent placement and most likely this was performed in [place], as the patient had lived there for a while and then moved back to this area. He has been followed by Dr. Morales in the office. He last was seen in the office on January 21, 2018. He also has a history in the past of left ventricular hypertrophy, ejection fraction most recently showed ejection fraction of 45% to 50%, this was performed in June of 2017 at [facility]. He also had moderate mitral valve regurgitation and diastolic dysfunction. He had a stress test at that time, which showed no evidence of ischemia. He has also been followed by the residential counselor. He has had some renal insufficiency and by evaluation of his laboratory data, there he does have some elevation in the creatinine of 2.1 with a BUN of 20. I believe Dr. Duran is his residential counselor. He has also has history of hypercholesterolemia, which has been followed. Occasionally, he would have some discomfort in his chest, but had no significant pain that would be felt to be ischemic in nature. He believes he has been having a low-grade fever at home before he brought with coughing, but he denies any other chest pain. He had been short of breath, but mainly associated with the cough. At this time, he is relatively comfortable, but still is coughing quite frequently during my evaluation. PAST MEDICAL HISTORY: Significant for coronary artery disease, hypertension, hypercholesterolemia, and diabetes. He has chronic kidney disease, atherosclerotic peripheral vascular disease. He has a history of bypass surgery. He has had drug-eluting stent placed in one of the saphenous vein graft I believe. He has had atrial flutter ablation. He also had apparently an aortobifemoral bypass. He has had bilateral iliac stent placements, back surgery. He has had bilateral AKAs performed. ALLERGIES: NONE. MEDICATIONS: Prior to admission included; 1. Atorvastatin 80 mg a day. 2. Furosemide 40 mg a day. 3. Glipizide ER 2.5 mg once a day. 4. Lyrica 100 mg daily. 5. Lisinopril 20 mg a day. 6. Aspirin 81 mg a day. 7. Chlorthalidone 25 mg one every day. His medications at this time include; 1. Amiodarone. 2. I believe he was started on infusion and then it was discontinued. 3. He has also been placed on diltiazem, which also was discontinued. 4. He was placed on some heparin, that was also stopped. 5. He has been given aspirin 81 mg a day. 6. Atorvastatin 10 mg a day. 7. He is on Omnicef. 8. He is on Pepcid, Lyrica, Tylenol, insulin, and other p.r.n. medications. SOCIAL HISTORY: He continued to smoke and occasionally uses marijuana and cocaine. FAMILY HISTORY: Positive for coronary artery disease. REVIEW OF SYSTEMS: A 12-point review of systems, he mainly complains of the cough. He has no new HEENT complaints. He has had no recent pulmonary complaints except for what is in the history of present illness at this time. He denies any GI or complaints. Musculoskeletal, he is non-ambulatory but is able to get around with a wheelchair. PHYSICAL EXAMINATION: VITAL SIGNS: Showed a temperature of 99, heart rate was 107 to 119, respiratory rate 16, and blood pressure is 140/91. GENERAL: Reveals a middle-aged gentleman, who is in no acute distress. He does have continued coughing. With deep inspiration, this exacerbates and he starts coughing again. HEENT: Shows the head to be normocephalic and atraumatic. He has a left carotid bruit noted. CHEST: Diffuse rhonchi noted. Expiratory wheezing noted. CARDIOVASCULAR: Heart sounds irregular. I cannot hear any gross murmurs, heaves, thrills, bruits, or rubs. There is increased airway noise, which may be obstructing the auscultatory findings. ABDOMEN: Soft and nontender. Positive bowel sounds are present. He has bilateral AKAs. Femoral pulses are present with bilateral femoral bruits. NEUROLOGIC: The patient appears to be grossly intact. LABORATORY DATA: Shows creatinine was 2.1, potassium was 4.5, BUN is 20. WBC was 7, hemoglobin 16.7. His troponin I was 0.012, increased up to 0.14. Chest x-ray showed no significant abnormality except for some increased interstitial markings. EKG showed no acute ST-segment changes, but evidence of atrial arrhythmias. IMPRESSION: 1. Most likely bronchitis and pneumonia, acute respiratory distress or failure, which does not require intubation. Most likely is significant bronchitis. O2 saturations were within normal limits. His overall cardiac status appears to be stable despite having a slight elevation of cardiac enzymes, which most likely due to demand ischemia. His BNP was 247, which is slightly elevated, but again may be due to some congestive heart failure. He does have a history of diastolic heart failure. This also will increase the BNP. 2. History of coronary artery disease, which appears to be relatively stable at this time. 3. History of atrial arrhythmias. We will continue to follow this and actually put him on a low dose of diltiazem and see whether or not this will suppress some of the atrial arrhythmias even. 4. History of diabetes, this will be dealt with rather primary care service, it is poorly controlled at this time. The blood sugar is 357. 5. History also of chronic hepatitis C. 6. History of bypass, status post bypass surgery due to his coronary artery disease. 7. Status post femoral-popliteal bypass surgery, the patient has bilateral [id number] amputation. 8. Hypertension. Blood pressure is under reasonably controlled at this time, it was slightly elevated. At this time, we would continue to follow the patient with you but will try to start low dose of antiarrhythmics for suppression of his atrial flutter or atrial arrhythmias. We would suggest we repeat the echocardiogram since his last echocardiogram was performed in June of 2017 and this did show evidence of mild decrease in left ventricular systolic function. Ejection fraction of 45% to 50% with some left atrial dilatation. He also at that time had [id number]-[id number] mitral valve regurgitation. Further care of the patient will be by Dr. Morales when he visits with the patient tomorrow. Job ID: [id number]
--- NOTE | 2018-03-19 17:25 | CON ---
DATE OF CONSULTATION: 03/19/2018 TIME SPENT: This accomplished 70 minutes, of that time greater than 50% was spent with the patient or on the patient's unit in the hospital. REASON FOR CONSULTATION: IMCU care. HISTORY OF PRESENT ILLNESS: The patient is a 62-year-old male, who came in last night with increasing shortness of breath over a week. It is not clear to me why he is in the IMCU at this time other than the fact that he is on a Cardizem drip. He did not require oxygen supplementation or BiPAP. I believe that his blood pressure was initially elevated when he came in. He says he has been short of breath over the last two or three days. He has coughed up some greenish sputum. He smokes half-pack per day. He has never been diagnosed with any lung problems in the past that he is aware of. PAST MEDICAL HISTORY: 1. Coronary artery disease. 2. Peripheral vascular disease. 3. Hyperlipidemia. 4. Diabetes mellitus. 5. Chronic kidney disease. PAST SURGICAL HISTORY: 1. Coronary artery bypass grafting surgery. 2. Bilateral qsbke-nlu-iivu amputations. 3. Atrial flutter ablation. 4. Aortobifemoral bypass. 5. Bilateral iliac stents. 6. Drug-eluting cardiac stent. ALLERGIES: NONE. SOCIAL HISTORY: Half-pack per day smoker. He has a history of cocaine and marijuana use in the past. FAMILY MEDICAL HISTORY: Unremarkable. REVIEW OF SYSTEMS: 12-point review of systems is otherwise negative. MEDICATIONS: Prior to admission, these were listed on the home medication section on the chart. He is on 1. Lyrica. 2. Atorvastatin. 3. Aspirin. 4. Glipizide. 5. Lisinopril. 6. Furosemide. 7. Chlorthalidone. PHYSICAL EXAMINATION: VITAL SIGNS: Temperature is 99.0, pulse 107, respirations 16, O2 saturation 99% on room air, blood pressure 140/91. HEENT: Pupils react, sclerae icteric. Oropharynx clear. NECK: Without adenopathy or JVD. LUNGS: He has crackles in both bases. CARDIAC: S1 and S2 regular with 2/6 systolic murmur at the left sternal border. ABDOMEN: Soft and nontender. EXTREMITIES: Bilateral htvmk-rid-dojx amputations. LABORATORY DATA: White blood cell count 7, hematocrit 51.6, platelet count 150. Sodium 131, potassium 4.5, chloride 100, CO2 of 21, BUN 20, creatinine 2.1, glucose 187. His x-ray showed cephalization of flow. His BNP was 247. ASSESSMENT: 1. Congestive heart failure-acute diastolic. 2. Bronchitis. 3. Tobacco abuse. RECOMMENDATIONS: 1. This patient could easily be transferred out to the floor. I doubt that he needs the Cardizem infusion. 2. I would start a general antibiotic for the bronchitis symptoms and apply nebulization treatments as needed. 3. He was told to stop smoking. Job ID: [id number]
--- NOTE | 2018-03-19 19:32 | CON ---
DATE OF CONSULTATION: 03/19/2018 TYPE OF CONSULTATION: Nephrology. REASON FOR CONSULTATION: Elevated creatinine. HISTORY OF PRESENT ILLNESS: This is a very pleasant 62-year-old gentleman followed by me in clinic, presented to the hospital for shortness of breath. The patient was given IV Lasix with improvement in breathing. The patient had a baseline creatinine of 1.7 in January which has increased to 2.1. The patient denies headache, numbness, tingling, weakness, or chest pain. PAST MEDICAL HISTORY: Significant for hypertension, coronary artery disease, CABG, anemia, hyperlipidemia, below-knee amputation, back surgery. SOCIAL HISTORY: No alcohol or drug use. FAMILY HISTORY: Negative for ESRD. ALLERGIES: REVIEWED. HOME MEDICATIONS: List reviewed. REVIEW OF SYSTEMS: 15-point review of system was performed and was negative except for positives noted above. GENERAL: HEAD: NECK: No swelling or lumps. NOSE: No epistaxis or discharge. EYES: No diplopia or pain. RESPIRATORY: CARDIOVASCULAR: GASTROINTESTINAL: /GAS LEAK TESTER: MUSCULOSKELETAL: No joint pain. NEUROPSYCHIATRIC SYSTEMS: No suicidal ideation. No ideation. SKIN: Denies any rash or ulcer. CONSTITUTIONAL: No fever or chills. PHYSICAL EXAMINATION: GENERAL: The patient is awake, alert, in no acute distress. VITAL SIGNS: Afebrile. Pulse 99, breathing 16, blood pressure 140/91. GENERAL APPEARANCE AND MENTAL STATUS: Fair. HEAD/NECK: Normocephalic. Atraumatic. EYES: EOMI. No deformity. EARS: Clear. No ulcers. NOSE: Intact. No lesions. MOUTH: Clear. No discharge. THROAT: Clear. No exudate. LUNGS: Clear. No crackles. CARDIAC: S1, S2. No rub. ABDOMEN: Benign. Bowel sounds positive. GENITALIA/RECTUM: Weinberg absent. BACK/EXTREMITIES: Edema 0+. NEUROLOGICAL: Alert and motor intact. SKIN: LYMPHATICS: LABORATORY DATA: Labs show creatinine 2.1. ASSESSMENT AND PLAN: 1. Stage 3 chronic kidney disease, stable. 2. Hypertension, stable. 3. Anemia, stable. 4. Congestive heart failure, management per primary team. No indication for dialysis. Job ID: [id number]
[2018-03-19] MEDS ORDERED: Atorvastatin Calcium 40 MG TAB PO SCH (21:00)
[2018-03-19] MEDS ORDERED: Diltiazem HCl SR 60 mg Capsule PO SCH (21:00)
[2018-03-19] MEDS: Benzonatate 100 MG CAP PO SCH (21:04)
[2018-03-19] MEDS: Amitriptyline HCl 25 MG TAB PO SCH (21:05)
[2018-03-19] MEDS: guaiFENesin ER 600 MG TAB PO SCH (21:05)
[2018-03-20] MEDS ORDERED: Digoxin 0.5 MG/2 ML AMP SLOW IVP SCH (04:45)
--- NOTE | 2018-03-20 05:48 | PDOC.FM ---
Addendum entered and electronically signed by Keily Carrington MD 03/20/18 09:06 : Will add PO dilt to patient regimen in hopes of d/c dilt gtt Addendum entered and electronically signed by Keily Carrington MD 03/20/18 08:37 : WILLIS on CKD3 - nephro consulted from ED - does not appear prerenal, UA wnl, possibly related to IV Lasix - Continue to encourage PO hydration and continue to monitor - renally dose meds Original Note: - Subjective Subjective: Overnight patient had sustained HR in 120-140s, atrial fibrillation. Cardiology started patient on dilt gtt and digoxin for better control. On exam this morning, patient states that he still feels short of breath. He denies chest pain or palpitations. Patient states he is tolerating his diet well. Endorses cough that has not improved. - Objective MAR Reviewed: Yes Vital Signs & Weight: Vital Signs (12 hours) Temp Pulse Resp BP BP Pulse Ox 03/20/18 04:58 127 H 03/20/18 04:00 99.3 F 117 H 20 119/92 H 95 03/20/18 02:52 122 H 14 100 03/19/18 23:48 99.7 F H 129 H 22 H 141/92 H 95 03/19/18 21:04 120 H 146/82 H 03/19/18 19:45 98.8 F 92 35 H 130/91 H 92 L 03/19/18 19:43 109 H 16 99 Weight Weight 63.219 kg Result Diagrams: 03/20/18 06:38 03/20/18 06:38 Phys Exam - Physical Examination Constitutional: NAD resting in bed HEENT: PERRLA, moist MMs, sclera anicteric Neck: supple, full ROM Respiratory: clear to auscultation bilateral irregularly irregular rhythm Gastrointestinal: soft, non-tender, no distention, positive bowel sounds bilateral AKAs Neurological: non-focal Psychiatric: normal affect, A&O x 3 Dx/Plan (1) Acute on chronic diastolic (congestive) heart failure Code(s): I50.33 - ACUTE ON CHRONIC DIASTOLIC (CONGESTIVE) HEART FAILURE Status : Acute (2) Acute on chronic kidney failure Code(s): N17.9 - ACUTE KIDNEY FAILURE, UNSPECIFIED; N18.9 - CHRONIC KIDNEY DISEASE, UNSPECIFIED Status: Acute Qualifiers: (3) CAD (coronary artery disease) Code(s): I25.10 - ATHSCL HEART DISEASE OF [place] CORONARY ARTERY W/O ANG PCTRS Status: Acute (4) DM2 (diabetes mellitus, type 2) Status: Acute (5) Cocaine abuse Code(s): F14.10 - COCAINE ABUSE, UNCOMPLICATED Status: Chronic (6) HLD (hyperlipidemia) Code(s): E78.5 - HYPERLIPIDEMIA, UNSPECIFIED Status: Chronic Qualifiers: (7) S/P AKA (above knee amputation) bilateral Code(s): Z89.611 - ACQUIRED ABSENCE OF RIGHT LEG ABOVE KNEE; Z89.612 - ACQUIRED ABSENCE OF LEFT LEG ABOVE KNEE Status: Chronic (8) S/P CABG x 4 Status: Chronic (9) Tobacco abuse Code(s): Z72.0 - TOBACCO USE Status: Chronic - Plan Plan: Bronchitis vs mild COPD exacerbation - no known dx of COPD, could also be 2/2 or worsened by chronic cannabis use - s/p steroids in ED, continue duonebs and cefdinir - Tesslon and mucinex for cough - Pulm consulted, appreciate recs Mild CHF exacerbation - b/l Pleural effusions on CXR - echo 10/20 with EF 40-45% - s/p 40 IV Lasix in ED, restart home PO Lasix dose - daily wt, strict IO's Atrial Arrhythmia - discussed with Dr. Bailey who reports known arrhythmia s/p ablation years back - Diltiazem gtt dc'd yesterday, patient then went back into atrial fibrillation overnight w/ HR in 120s-140s. Dr. Bailey called and added dilt gtt back as well as digoxin to control the rate. Appreciate recs. Dr. Morales will see patient today. - Pt asymptomatic Exertional Angina - Sees Dr. Morales regularly, trops trended down - Could be related to acute lung disease Elevated Trops - trend, no ST changes on EKG, likely demand - 0.144-> 0.103 T2DM - last AIc in clinic is 6.5 on 11/2017, repeat pending - continue glipizide - expect rise in sugars with prednisolone in ED - SSI mild HTN - not on any home meds at this time - continue to monitor HLD - switched from lipitor to crestor due to to dilt drug interaction Tobacco Abuse - recently trying to quit with Chantix, no longer using, smoking 1ppd - encouraged cessation Cannabis Abuse - discussed potential harmful effects and encouraged cessation - UDS pos for cocaine & meth Phantom Leg Pain - continue Amitryptyline at bedtime CAD s/p 4v CABG (1999) - daily ASA - on high intensity crestor Dispo: continue dilt drip for rate control, switch to PO once controlled Addendum - Attending - Attending Attestation Date/Time: 03/20/181947 I personally evaluated the patient and discussed the management with I agree with the History, Examination, Assessment and Plan documented above with any addition or exceptions noted below. Per Cardiology recommendation for new onset Afib: initiate cardarone, DOAC and attempt cardioversion .
[2018-03-20 06:54] LABS: #Eosinphils 0.1 thou/uL (0.0-0.7); #Lymphocytes 1.4 thou/uL (1.20-3.40); #Monocytes 1.7 thou/uL (0.11-0.59); #Neutrophils 8.4 thou/uL (1.40-6.50); %Basophils 0.4 % (0.0-1.0); %Eosinophils 0.7 % (0.0-10.0); %Lymphocytes 11.8 % (21.0-51.0); %Monocytes 14.9 % (0.0-10.0); %Neutrophils 72.2 % (42.0-75.0); Hemoglobin 15.5 g/dL (14.0-18.0); Mean Corpuscular HGB CONC 32.7 g/dL (32.0-36.0); Mean Corpuscular Hemoglobin 28.7 pg (27.0-31.0); Mean Corpuscular Volume 87.6 fL (78.0-98.0); Mean Platelet Volume 10.2 fL (7.4-10.4); Platelet Count 134 thou/uL (130-400); RBC Distribution Width 13.8 % (11.5-14.5); White Blood Cell (WBC) Count 11.6 thou/uL (4.8-10.8)
[2018-03-20 07:00] LABS: Anion Gap 13 mmol/L (10-20); BUN (Urea Nitrogen) 31 mg/dL (8.4-25.7); Calc. Creatinine Clearance 32 mL/min (70-130); Calcium 8.5 mg/dL (7.8-10.44); Carbon Dioxide 19 mmol/L (22-29); Chloride 105 mmol/L (98-107); Estimated GFR-MDRD 36; Glucose 106 mg/dL (70-105); Sodium 133 mmol/L (136-145)
[2018-03-20] MEDS: Famotidine 20 MG TAB PO SCH (07:45)
[2018-03-20] MEDS: Furosemide 40 MG TAB PO SCH (07:45)
[2018-03-20] MEDS: Aspirin 81 mg Enteric Coated Tablet PO SCH (07:46)
[2018-03-20] MEDS: Benzonatate 100 MG CAP PO SCH ×3 (07:46→21:11)
[2018-03-20] MEDS: Cefdinir 300 MG CAP PO SCH (07:46)
[2018-03-20] MEDS: Famotidine/PF 20 mg/2ml Vial SLOW IVP SCH (07:46)
[2018-03-20] MEDS: guaiFENesin ER 600 MG TAB PO SCH ×2 (07:46→21:11)
[2018-03-20] MEDS ORDERED: Enoxaparin Sodium 40 MG/0.4 ML SYRINGE SC SCH (09:00)
[2018-03-20] MEDS ORDERED: Furosemide 40 MG/4 ML VIAL SLOW IVP SCH (09:30)
--- NOTE | 2018-03-20 09:42 | PRG ---
DATE OF SERVICE: 03/20/2018 SUBJECTIVE: The patient is doing okay. He has no acute complaints. OBJECTIVE: VITAL SIGNS: Temperature is 99.6, pulse 97, respirations 16, O2 saturations 98% on room air, and blood pressure 150/92. HEENT: Unremarkable. NECK: No JVD. CARDIAC: S1 and S2, irregular. ABDOMEN: Soft. LUNGS: Clear. EXTREMITIES: Bilateral amputations. LABORATORY DATA: White blood cell count 11.6, hematocrit 47.3, and platelet count 134. Sodium 133, potassium 4, BUN 31, creatinine 2.2, glucose 106. ASSESSMENT: 1. Stable pulmonary status. 2. Congestive heart failure, acute diastolic. 3. Atrial fibrillation and atrial flutter. 4. Bronchitis. PLAN: The patient needs to be transferred out to telemetry when bed becomes available. He is on some Omnicef for bronchitis. He should need more than five days of that. Further care per Cardiology and Family Medicine. Job ID: [id number]
--- NOTE | 2018-03-20 11:19 | PRG ---
DATE OF SERVICE: 03/20/2018 SUBJECTIVE: This is a 62-year-old gentleman being seen for acute kidney injury. The patient denied nausea, vomiting, or chest pain. OBJECTIVE: GENERAL: The patient is awake and alert. VITAL SIGNS: Afebrile. Pulse 97, breathing 16, blood pressure 150/92. GENERAL APPEARANCE AND MENTAL STATUS: Fair. HEAD/NECK: Normocephalic. Atraumatic. EYES: EOMI. No deformity. EARS: Clear. No ulcers. NOSE: Intact. No lesions. MOUTH: Clear. No discharge. THROAT: Clear. No exudate. LUNGS: Clear. No crackles. CARDIAC: S1, S2. No rub. ABDOMEN: Benign. Bowel sounds positive. GENITALIA/RECTUM: Weinberg absent. BACK/EXTREMITIES: Edema 0+. NEUROLOGICAL: Alert and motor intact. SKIN: LYMPHATICS: LABORATORY DATA: Labs show hemoglobin 15.5, creatinine 2.2. ASSESSMENT AND PLAN: 1. Chronic kidney disease stage 3, stable. 2. Hypertension, stable. 3. Anemia, stable. 4. Medication based on GFR appropriate. No indication for dialysis. Job ID: [id number]
[2018-03-20] MEDS: Amiodarone 200 MG TAB PO SCH ×2 (15:03→21:11)
[2018-03-20] MEDS: Rosuvastatin 20 MG TAB PO SCH (21:11)
[2018-03-20] MEDS: Amitriptyline HCl 25 MG TAB PO SCH (21:11)
--- NOTE | 2018-03-21 06:11 | PDOC.FM ---
- Subjective Subjective: Patient sitting up in bed. No events overnight. Patient reports SOB about the same as yesterday. Denies chest pain, palpitations. Endorses cough that is dry, not improved from yesterday. - Objective MAR Reviewed: Yes Vital Signs & Weight: Vital Signs (12 hours) Temp Pulse Resp BP Pulse Ox 03/21/18 04:00 98.7 F 113 H 20 126/81 96 03/21/18 02:09 108 H 12 94 L 03/20/18 23:20 99.3 F 93 20 149/65 H 92 L 03/20/18 23:05 100 16 94 L 03/20/18 20:00 94 L 03/20/18 19:00 99.0 F 108 H 18 124/75 94 L 03/20/18 18:52 104 H 16 90 L Weight Weight 62.397 kg I&O: 03/19/18 03/20/18 03/21/18 06:59 06:59 06:59 Intake Total 558 1710 Output Total 750 1850 Balance -192 -140 Result Diagrams: 03/21/18 07:19 03/21/18 07:20 Phys Exam - Physical Examination Constitutional: NAD HEENT: PERRLA, moist MMs, sclera anicteric Neck: supple, full ROM exp wheeze in bilaterally, crackles at lower lung bases - R>L tachycardic, no murmur, rub or gallop Gastrointestinal: soft, non-tender, no distention, positive bowel sounds bilateral AKAs Neurological: non-focal Psychiatric: normal affect, A&O x 3 Dx/Plan (1) Acute on chronic diastolic (congestive) heart failure Code(s): I50.33 - ACUTE ON CHRONIC DIASTOLIC (CONGESTIVE) HEART FAILURE Status : Acute (2) Acute on chronic kidney failure Code(s): N17.9 - ACUTE KIDNEY FAILURE, UNSPECIFIED; N18.9 - CHRONIC KIDNEY DISEASE, UNSPECIFIED Status: Acute Qualifiers: (3) CAD (coronary artery disease) Code(s): I25.10 - ATHSCL HEART DISEASE OF [place] CORONARY ARTERY W/O ANG PCTRS Status: Acute (4) DM2 (diabetes mellitus, type 2) Status: Acute (5) Cocaine abuse Code(s): F14.10 - COCAINE ABUSE, UNCOMPLICATED Status: Chronic (6) HLD (hyperlipidemia) Code(s): E78.5 - HYPERLIPIDEMIA, UNSPECIFIED Status: Chronic Qualifiers: (7) S/P AKA (above knee amputation) bilateral Code(s): Z89.611 - ACQUIRED ABSENCE OF RIGHT LEG ABOVE KNEE; Z89.612 - ACQUIRED ABSENCE OF LEFT LEG ABOVE KNEE Status: Chronic (8) S/P CABG x 4 Status: Chronic (9) Tobacco abuse Code(s): Z72.0 - TOBACCO USE Status: Chronic - Plan Plan: Bronchitis vs mild COPD exacerbation - no known dx of COPD, could also be 2/2 or worsened by chronic cannabis use - s/p steroids in ED, continue duonebs and cefdinir - Tesslon and mucinex for cough; Will add prednisone as pt states SOB has not improved - Pulm consulted, appreciate recs; pt ready to transport to tele Mild CHF exacerbation - b/l Pleural effusions on CXR - echo 10/20 with EF 40-45%; repeat echo unchanged: EF 45-50% - s/p 40 IV Lasix in ED, restart home PO Lasix dose; will give IV lasix as needed - daily wt, strict IO's Atrial Arrhythmia - discussed with Dr. Bailey who reports known arrhythmia s/p ablation years back - Diltiazem drip stopped yesterday. Patient started on PO amiodarone and diltiazem. Will increase dilt dose due to elevated HR this AM. HR 93-113. Appreciate cards recommendations. Exertional Angina - Sees Dr. Morales regularly, trops trended down - Could be related to acute lung disease Elevated Trops - trend, no ST changes on EKG, likely demand - 0.144-> 0.103 WILLIS on CKD3 - nephro consulted from ED, recommend current management, no need for dialysis, appreciate recs - does not appear prerenal, UA wnl, possibly related to IV Lasix - Continue to encourage PO hydration and continue to monitor - renally dose meds - improved 2.24 -> 1.96 T2DM - last AIc in clinic is 6.5 on 11/2017, 6.8 on this admission - continue glipizide - SSI aggressive HTN - not on any home meds at this time - continue to monitor HLD - switched from lipitor to crestor due to to dilt drug interaction Tobacco Abuse - recently trying to quit with Chantix, no longer using, smoking 1ppd - encouraged cessation Cannabis Abuse - discussed potential harmful effects and encouraged cessation - UDS pos for cocaine & meth Phantom Leg Pain - continue Amitryptyline at bedtime CAD s/p 4v CABG (1999) - daily ASA - on high intensity crestor Dispo: transfer to tele, will continue to monitor Addendum - Attending - Attending Attestation Date/Time: 03/21/18 9790 I personally evaluated the patient and discussed the management with Dr. Carrington I agree with the History, Examination, Assessment and Plan documented above with any addition or exceptions noted below.Heart rate elevated this am consider Diltiazem bolus for improved rate control and agree with addition oral steroids.
[2018-03-21 08:00] LABS: Hemoglobin 15.2 g/dL (14.0-18.0); Mean Corpuscular HGB CONC 31.3 g/dL (32.0-36.0); Mean Corpuscular Hemoglobin 27.4 pg (27.0-31.0); Mean Corpuscular Volume 87.5 fL (78.0-98.0); Mean Platelet Volume 10.7 fL (7.4-10.4); Platelet Count 132 thou/uL (130-400); RBC Distribution Width 13.6 % (11.5-14.5); Red Blood Cell (RBC) Count 5.54 mill/uL (4.70-6.10)
[2018-03-21 08:27] LABS: Band 6 % (5-11); Eosinophils 2 % (0-10); Lymphocytes 16 % (21-51); MDiff Complete? YES; Monocytes 12 % (0-10); Neutrophil 56 % (42-75); RBC Morphology Normal; Reactive Lymphocytes 6 % (0-10)
[2018-03-21 08:29] LABS: Anion Gap 13 mmol/L (10-20); BUN (Urea Nitrogen) 21 mg/dL (8.4-25.7); Calc. Creatinine Clearance 35 mL/min (70-130); Calcium 8.4 mg/dL (7.8-10.44); Carbon Dioxide 21 mmol/L (22-29); Chloride 103 mmol/L (98-107); Estimated GFR-MDRD 42; Glucose 100 mg/dL (70-105); Potassium 3.9 mmol/L (3.5-5.1); Sodium 133 mmol/L (136-145)
[2018-03-21] MEDS: Aspirin 81 mg Enteric Coated Tablet PO SCH (09:45)
[2018-03-21] MEDS: guaiFENesin ER 600 MG TAB PO SCH ×2 (09:45→20:48)
[2018-03-21] MEDS: Amiodarone 200 MG TAB PO SCH ×3 (09:45→20:48)
[2018-03-21] MEDS: Cefdinir 300 MG CAP PO SCH (09:46)
[2018-03-21] MEDS: Benzonatate 100 MG CAP PO SCH ×3 (09:46→20:48)
[2018-03-21] MEDS: Rivaroxaban 15 MG TAB PO SCH (09:46)
[2018-03-21] MEDS: Furosemide 40 MG TAB PO SCH (09:46)
[2018-03-21] MEDS: Famotidine 20 MG TAB PO SCH (09:46)
--- NOTE | 2018-03-21 09:50 | PRG ---
DATE OF SERVICE: 03/21/2018 SUBJECTIVE: The patient is doing well and has no acute complaints. PHYSICAL EXAMINATION: VITAL SIGNS: Temperature 98.5, pulse 114, respirations 16, O2 saturation 98% on room air, blood pressure 150/83. HEENT: Unremarkable. NECK: No JVD. CHEST: Clear. CARDIAC: S1, S2. Regular. ABDOMEN: Soft. EXTREMITIES: Bilateral above the knee amputation. LABORATORY DATA: White count 9, hematocrit 40.5, platelet count 132. Sodium 133, potassium 3.9, chloride 103, CO2 of 21, BUN 21, creatinine 1.9, glucose 100. ASSESSMENT: 1. Bronchitis. 2. Atrial fibrillation/flutter. 3. Congestive heart failure-acute diastolic. PLAN: The patient is probably close to medical discharge. He seems stable from Pulmonary standpoint. Job ID: [id number]
[2018-03-21] MEDS ORDERED: Dextromethorphan Polistirex 30 MG/5 ML (89 ML BOTTLE) PO PRN (10:31)
--- NOTE | 2018-03-21 10:36 | PRG ---
DATE OF SERVICE: 03/21/2018 SUBJECTIVE: A 62-year-old gentleman being seen for acute kidney injury. The patient denies nausea, vomiting or chest pain. OBJECTIVE: See above. CONSTITUTIONAL: Awake, alert, in no acute distress. VITAL SIGNS: Afebrile. Pulse 108, breathing 16, blood pressure 126/81. GENERAL APPEARANCE AND MENTAL STATUS: Fair. HEAD/NECK: Normocephalic. Atraumatic. EYES: EOMI. No deformity. EARS: Clear. No ulcers. NOSE: Intact. No lesions. MOUTH: Clear. No discharge. THROAT: Clear. No exudate. LUNGS: Clear. No crackles. CARDIAC: S1, S2. No rub. ABDOMEN: Benign. Bowel sounds positive. GENITALIA/RECTUM: Weinberg absent. BACK/EXTREMITIES: Edema 0+. NEUROLOGICAL: Alert and motor intact. SKIN: LYMPHATICS: LABORATORY DATA: Show hemoglobin 15.2. Creatinine 1.9. ASSESSMENT AND RECOMMENDATION: 1. Acute kidney injury, improved. 2. Hypertension, stable. 3. Anemia, stable. 4. Medication based on glomerular filtration rate, appropriate. Job ID: [id number]
[2018-03-21] MEDS: Rosuvastatin 20 MG TAB PO SCH (20:48)
[2018-03-21] MEDS: Amitriptyline HCl 25 MG TAB PO SCH (20:48)
--- NOTE | 2018-03-22 06:18 | PDOC.FM ---
- Subjective Subjective: Patient resting comfortably in bed. States he feels better today and SOB has improved. Cough improved as well. Patient states that he feels ready for discharge as he is feeling much better. Denies chest pain, palpitations, abdominal pain, or NVD. - Objective MAR Reviewed: Yes Vital Signs & Weight: Vital Signs (12 hours) Temp Pulse Resp BP Pulse Ox 03/22/18 03:46 98.8 F 105 H 20 169/118 H 98 03/22/18 02:24 105 H 12 98 03/21/18 23:46 99.3 F 101 H 16 163/75 H 97 03/21/18 22:19 99 16 99 03/21/18 20:00 94 L 03/21/18 19:49 98.9 F 113 H 20 135/83 94 L 03/21/18 18:35 111 H 16 96 Weight Weight 62.397 kg I&O: 03/20/18 03/21/18 03/22/18 06:59 06:59 06:59 Intake Total 558 1710 1000 Output Total 750 1850 1175 Balance -192 -140 -175 Result Diagrams: 03/22/18 06:29 03/22/18 06:29 Phys Exam - Physical Examination Constitutional: NAD HEENT: moist MMs, sclera anicteric Neck: full ROM Respiratory: clear to auscultation bilateral Cardiovascular: RRR Gastrointestinal: soft, non-tender, no distention, positive bowel sounds Musculoskeletal: no edema bilateral AKAs Neurological: non-focal Dx/Plan (1) Acute on chronic diastolic (congestive) heart failure Code(s): I50.33 - ACUTE ON CHRONIC DIASTOLIC (CONGESTIVE) HEART FAILURE Status : Acute (2) Acute on chronic kidney failure Code(s): N17.9 - ACUTE KIDNEY FAILURE, UNSPECIFIED; N18.9 - CHRONIC KIDNEY DISEASE, UNSPECIFIED Status: Acute Qualifiers: (3) CAD (coronary artery disease) Code(s): I25.10 - ATHSCL HEART DISEASE OF [place] CORONARY ARTERY W/O ANG PCTRS Status: Acute (4) DM2 (diabetes mellitus, type 2) Status: Acute (5) Cocaine abuse Code(s): F14.10 - COCAINE ABUSE, UNCOMPLICATED Status: Chronic (6) HLD (hyperlipidemia) Code(s): E78.5 - HYPERLIPIDEMIA, UNSPECIFIED Status: Chronic Qualifiers: (7) S/P AKA (above knee amputation) bilateral Code(s): Z89.611 - ACQUIRED ABSENCE OF RIGHT LEG ABOVE KNEE; Z89.612 - ACQUIRED ABSENCE OF LEFT LEG ABOVE KNEE Status: Chronic (8) S/P CABG x 4 Status: Chronic (9) Tobacco abuse Code(s): Z72.0 - TOBACCO USE Status: Chronic - Plan Plan: Bronchitis vs mild COPD exacerbation - no known dx of COPD, could also be 2/2 or worsened by chronic cannabis use - Continue duonebs and cefdinir; added prednisone as cough was not improved ( day 2/5) - Tesslon, mucinex, and desylm for cough - Pulm consulted, appreciate recs; pt ready to transport to tele Mild CHF exacerbation - b/l Pleural effusions on CXR - echo 10/20 with EF 40-45%; repeat echo unchanged: EF 45-50% - s/p 40 IV Lasix in ED, restart home PO Lasix dose; will give IV lasix as needed - daily wt, strict IO's Atrial Arrhythmia - discussed with Dr. Bailey who reports known arrhythmia s/p ablation years back - Diltiazem drip stopped 03/20. Patient started on PO amiodarone, coreg, and diltiazem. HR 99-105, improved from yesterday. Appreciate cards recommendations. Exertional Angina - Sees Dr. Morales regularly, trops trended down - Could be related to acute lung disease Elevated Trops - trend, no ST changes on EKG, likely demand - 0.144-> 0.103 WILLIS on CKD3 - nephro consulted from ED, recommend current management, no need for dialysis, appreciate recs - does not appear prerenal, UA wnl, possibly related to IV Lasix - Continue to encourage PO hydration and continue to monitor - renally dose meds - improved 2.24 -> 1.96 -> 1.73 T2DM - last AIc in clinic is 6.5 on 11/2017, 6.8 on this admission - continue glipizide; SSI aggressive HTN - BP elevated; will restart home med of lisinopril HLD - switched from lipitor to crestor due to to dilt drug interaction Tobacco Abuse - recently trying to quit with Chantix, no longer using, smoking 1ppd - encouraged cessation Cannabis Abuse - discussed potential harmful effects and encouraged cessation - UDS pos for cocaine & meth Phantom Leg Pain - continue Amitryptyline at bedtime CAD s/p 4v CABG (1999) - daily ASA - on high intensity crestor Dispo: transfer to tele, possible discharge later today or tomorrow Addendum - Attending - Attending Attestation Date/Time: 03/22/18 0493 I personally evaluated the patient and discussed the management with Dr. Carrington I agree with the History, Examination, Assessment and Plan documented above with any addition or exceptions noted below.Patient less SOB HR controlled advance activity step down lower level of care soon.
[2018-03-22 07:06] LABS: #Eosinphils 0.4 thou/uL (0.0-0.7); #Lymphocytes 1.5 thou/uL (1.20-3.40); #Neutrophils 4.7 thou/uL (1.40-6.50); %Basophils 0.6 % (0.0-1.0); %Lymphocytes 19.6 % (21.0-51.0); %Monocytes 13.6 % (0.0-10.0); %Neutrophils 61.2 % (42.0-75.0); Hemoglobin 15.8 g/dL (14.0-18.0); Mean Corpuscular HGB CONC 31.5 g/dL (32.0-36.0); Mean Corpuscular Hemoglobin 27.7 pg (27.0-31.0); Mean Corpuscular Volume 87.9 fL (78.0-98.0); Mean Platelet Volume 10.6 fL (7.4-10.4); Platelet Count 130 thou/uL (130-400); RBC Distribution Width 13.7 % (11.5-14.5); Red Blood Cell (RBC) Count 5.69 mill/uL (4.70-6.10); White Blood Cell (WBC) Count 7.7 thou/uL (4.8-10.8)
[2018-03-22] MEDS: Amiodarone 200 MG TAB PO SCH ×2 (07:24→21:28)
[2018-03-22] MEDS: Cefdinir 300 MG CAP PO SCH (07:24)
[2018-03-22] MEDS: Aspirin 81 mg Enteric Coated Tablet PO SCH (07:25)
[2018-03-22] MEDS: Lisinopril 20 MG TAB PO SCH (07:25)
[2018-03-22] MEDS: predniSONE 20 MG TAB PO SCH (07:25)
[2018-03-22] MEDS: Furosemide 40 MG TAB PO SCH (07:25)
[2018-03-22] MEDS: Carvedilol 3.125 MG TAB PO SCH ×2 (07:25→17:00)
[2018-03-22] MEDS: Famotidine 20 MG TAB PO SCH (07:25)
[2018-03-22] MEDS: guaiFENesin ER 600 MG TAB PO SCH ×2 (07:25→21:27)
[2018-03-22 07:26] LABS: Anion Gap 15 mmol/L (10-20); BUN (Urea Nitrogen) 17 mg/dL (8.4-25.7); Calc. Creatinine Clearance 40 mL/min (70-130); Calcium 8.7 mg/dL (7.8-10.44); Carbon Dioxide 19 mmol/L (22-29); Chloride 105 mmol/L (98-107); Estimated GFR-MDRD 49; Glucose 102 mg/dL (70-105); Potassium 3.8 mmol/L (3.5-5.1); Sodium 135 mmol/L (136-145)
[2018-03-22] MEDS: Diltiazem HCl CD 300 mg Capsule PO SCH (07:26)
[2018-03-22] MEDS: Benzonatate 100 MG CAP PO SCH ×3 (07:26→21:27)
[2018-03-22] MEDS: Rivaroxaban 15 MG TAB PO SCH (07:26)
--- NOTE | 2018-03-22 09:42 | PRG ---
DATE OF SERVICE: 03/22/2018 SUBJECTIVE: He feels okay. He had no acute complaints. He wants to go home. OBJECTIVE: VITAL SIGNS: Temperature 98, pulse 98, respirations 24, saturation 100% on room air. HEENT: Unremarkable. NECK: No adenopathy or JVD. CHEST: Clear. CARDIAC: S1 and S2. Regular. ABDOMEN: Soft. EXTREMITIES: Bilateral [id number] amputations. ASSESSMENT: 1. Congestive heart failure. 2. Atrial fibrillation/flutter. 3. Bronchitis. PLAN: Stable for discharge from a pulmonary standpoint. No further Pulmonary recommendations. We will sign off. Please re-call if further assistance is needed. Job ID: [id number]
--- NOTE | 2018-03-22 12:00 | PRG ---
DATE OF SERVICE: 03/22/2018 SUBJECTIVE: A 62-year-old gentleman being seen for acute kidney injury. The patient denies nausea, vomiting, or chest pain. OBJECTIVE: GENERAL: The patient is awake and alert. VITAL SIGNS: Afebrile, pulse 98, breathing 16, blood pressure was 135/83. OBJECTIVE: See above. Awake, alert, in no acute distress. VITAL SIGNS: Afebrile, pulse 57, breathing 16, and blood pressure 133/64. GENERAL APPEARANCE AND MENTAL STATUS: Fair. HEAD/NECK: Normocephalic. Atraumatic. EYES: EOMI. No deformity. EARS: Clear. No ulcers. NOSE: Intact. No lesions. MOUTH: Clear. No discharge. THROAT: Clear. No exudate. LUNGS: Clear. No crackles. CARDIAC: S1, S2. No rub. ABDOMEN: Benign. Bowel sounds positive. GENITALIA/RECTUM: Weinberg absent. BACK/EXTREMITIES: Edema 0+. NEUROLOGICAL: Alert and motor intact. SKIN: LYMPHATICS: ASSESSMENT AND PLAN: 1. Stage 3 chronic kidney disease, stable. 2. Hypertension. I would recommend increasing the Coreg to 6.25. 3. Anemia, stable. 4. Medication based on GFR appropriate. No indication for dialysis. Job ID: [id number] [facility]
[2018-03-22] MEDS ORDERED: Nitroglycerin 0.4 MG TAB (25 Tab Bottle) SL PRN (17:25)
--- NOTE | 2018-03-22 17:39 | PDOC.EVN ---
Event Note - Event Note Event Note: Paged that Mr. Calderon was diaphoretic and complaining of increased SOB. Nurse reported increased work of breathing. I went to evaluate patient. Patient currently receiving DuoNeb treatment. Patient reported improved SOB. Denies chest pain or palpitations. Denies abdominal pain, NVD. VS: HR: 76 BP: 146/110 RR 20 O2 sat 99% RA T: 97.4F PE: Genera: no acute distress Resp: no labored breathing, exp wheeze heard diffusely, no crackles or rales Cardio: RRR Skin: diaphoretic A&P: - Will obtain CXR to assess for pulm edema - Will order BNP and troponin w/ CKMB - DuoNeb treatments as needed - Will order SL nitro to help with increased BP - EKG
[2018-03-22 18:09] LABS: CKMB 4.2 ng/mL (0-6.6)
--- NOTE | 2018-03-22 20:50 | RAD ---
PORTABLE AP CHEST X-RAY 03/22/18 HISTORY: Shortness of breath. COMPARISON: 03/18/18. FINDINGS: Postsurgical changes related to CABG are again noted. The cardiac silhouette is magnified by projecti on. Pulmonary vasculature is within normal limits. The lungs are clear. There has been no interval ch fletcher from the prior exam. IMPRESSION: No acute cardiopulmonary process. POS: [facility]
[2018-03-22] MEDS: Amitriptyline HCl 25 MG TAB PO SCH (21:27)
[2018-03-22] MEDS: Rosuvastatin 20 MG TAB PO SCH (21:28)
--- NOTE | 2018-03-23 05:28 | PDOC.FM ---
- Subjective Subjective: NAEO. Patient endorses some mild SOB and was actively coughing up sputum on exam. Says he is not feeling well this morning due to his cough. Says the breathing treatments are helping and his last one was at 0400 today. Denies any CP since episode yesterday evening. - Objective MAR Reviewed: Yes Vital Signs & Weight: Vital Signs (12 hours) Temp Pulse Resp BP BP Pulse Ox 03/23/18 04:00 98.6 F 78 16 139/68 98 03/22/18 23:51 98.8 F 81 12 131/75 99 03/22/18 23:04 84 16 100 03/22/18 19:40 98.3 F 82 16 159/76 H 100 03/22/18 19:19 81 20 100 Weight Weight 61.643 kg I&O: 03/21/18 03/22/18 03/23/18 06:59 06:59 06:59 Intake Total 1710 1600 900 Output Total 1850 1575 750 Balance -140 25 150 Result Diagrams: 03/22/18 06:29 03/22/18 06:29 Phys Exam - Physical Examination Constitutional: NAD HEENT: moist MMs, sclera anicteric Neck: supple, full ROM Respiratory: no wheezing, no rales inspiratory rhonchi throughout Cardiovascular: RRR, no significant murmur s/p B/L BKA Neurological: non-focal, moves all 4 limbs Psychiatric: normal affect, A&O x 3 Skin: no rash, normal turgor Dx/Plan (1) Bronchitis Code(s): J40 - BRONCHITIS, NOT SPECIFIED ACUTE OR CHRONIC Status: Acute (2) Elevated troponin I level Code(s): R74.8 - ABNORMAL LEVELS OF OTHER SERUM ENZYMES Status: Acute (3) HTN (hypertension) Code(s): I10 - ESSENTIAL (PRIMARY) HYPERTENSION Status: Acute (4) Acute on chronic kidney failure Code(s): N17.9 - ACUTE KIDNEY FAILURE, UNSPECIFIED; N18.9 - CHRONIC KIDNEY DISEASE, UNSPECIFIED Status: Acute Qualifiers: (5) Acute on chronic systolic (congestive) heart failure Code(s): I50.23 - ACUTE ON CHRONIC SYSTOLIC (CONGESTIVE) HEART FAILURE Status : Acute (6) CAD (coronary artery disease) Code(s): I25.10 - ATHSCL HEART DISEASE OF [place] CORONARY ARTERY W/O ANG PCTRS Status: Acute (7) DM2 (diabetes mellitus, type 2) Status: Acute (8) Cocaine abuse Code(s): F14.10 - COCAINE ABUSE, UNCOMPLICATED Status: Chronic (9) HLD (hyperlipidemia) Code(s): E78.5 - HYPERLIPIDEMIA, UNSPECIFIED Status: Chronic Qualifiers: (10) S/P AKA (above knee amputation) bilateral Code(s): Z89.611 - ACQUIRED ABSENCE OF RIGHT LEG ABOVE KNEE; Z89.612 - ACQUIRED ABSENCE OF LEFT LEG ABOVE KNEE Status: Chronic (11) S/P CABG x 4 Status: Chronic (12) Tobacco abuse Code(s): Z72.0 - TOBACCO USE Status: Chronic - Plan Plan: Bronchitis vs mild COPD exacerbation - no known dx of COPD, could also be 2/2 or exacerbated by chronic cannabis use - Will continue duonebs and cefdinir. Will also continue PO prednisone to complete a 5 day course (day 3/5) - Will continue tesslon, mucinex, and desylm for cough - Pulm consulted & on board, appreciate recs Mild CHF exacerbation - b/l Pleural effusions on CXR on admission, repeat y-day read as no interval change from previous exam w/ no acute cardiopulmonary process - echo 10/20 with EF 40-45%; repeat echo unchanged: EF 45-50% - Will continue home PO Lasix dose but give IV lasix PRN while in the hospital - daily wt, strict IO's, fluid restricted, HH diet Atrial Arrhythmia - discussed case with Dr. Bailey who reports known arrhythmia s/p ablation years back - Diltiazem drip stopped on 03/20. Patient now on PO amiodarone, coreg, and diltiazem per cards recs. HR down to 70s-80s overnight. Appreciate recs. Exertional Angina - Sees Dr. Morales regularly, trops trended down - Could be related to acute lung disease Elevated Trops - trend, no ST changes on EKG, likely demand - 0.144-> 0.103 - repeat y-day lower than all previous measures during this stay at 0.08. WILLIS on CKD3 - nephro consulted from ED & recommended current management, no need for dialysis, appreciate recs - does not appear prerenal, UA wnl, possibly related to IV Lasix - Will continue to encourage PO hydration and continue to monitor - renally dose meds - improved Cr from 2.24 -> 1.96 -> 1.73 T2DM - last AIc in clinic is 6.5 on 11/2017, 6.8 on this admission - Will continue glipizide & SSI aggressive HTN - BP elevated; will restart home lisinopril now that WILLIS has resolved HLD - switched from lipitor to crestor due to to dilt drug interaction - will d/c on crestor Tobacco Abuse - recently trying to quit with Chantix, no longer using, smoking 1ppd - encouraged cessation Polysubstance Abuse - UDS pos for cocaine & meth on admission - discussed potential harmful effects and encouraged cessation Phantom Leg Pain - Will continue Amitryptyline at bedtime CAD s/p 4v CABG (1999) - daily ASA - on high intensity crestor Dispo: Will transfer to tele w/ possible discharge later today as long as HR remains well controlled in sinus and no further CP episodes. Addendum - Attending - Attending Attestation Date/Time: 03/23/18 6688 I personally evaluated the patient and discussed the management with Dr. Mae I agree with the History, Examination, Assessment and Plan documented above with any addition or exceptions noted below. Patient in NSR should be stable for dismissal
[2018-03-23] MEDS: Furosemide 40 MG TAB PO SCH (08:32)
[2018-03-23] MEDS: Famotidine 20 MG TAB PO SCH (08:32)
[2018-03-23] MEDS: Carvedilol 3.125 MG TAB PO SCH (08:33)
[2018-03-23] MEDS: Cefdinir 300 MG CAP PO SCH (08:34)
[2018-03-23] MEDS: Amiodarone 200 MG TAB PO SCH (08:34)
[2018-03-23] MEDS: predniSONE 20 MG TAB PO SCH (08:34)
[2018-03-23] MEDS: Benzonatate 100 MG CAP PO SCH (08:34)
[2018-03-23] MEDS: Aspirin 81 mg Enteric Coated Tablet PO SCH (08:34)
[2018-03-23] MEDS: Lisinopril 20 MG TAB PO SCH (08:35)
[2018-03-23] MEDS: Diltiazem HCl CD 300 mg Capsule PO SCH (08:35)
[2018-03-23] MEDS: guaiFENesin ER 600 MG TAB PO SCH (08:35)
[2018-03-23] MEDS: Rivaroxaban 15 MG TAB PO SCH (08:35)
[2018-03-23 11:01] VITALS: BP 140/73; TEMP 98.6
--- NOTE | 2018-03-23 12:30 | PRG ---
DATE OF SERVICE: 03/23/2018 SUBJECTIVE: This is a 62-year-old male being seen for acute kidney injury. The patient denied nausea, vomiting, or chest pain. OBJECTIVE: CONSTITUTIONAL: Awake, alert, in no acute distress. VITAL SIGNS: Afebrile, pulse 82, breathing 16, blood pressure 142/74. GENERAL APPEARANCE AND MENTAL STATUS: Fair. HEAD/NECK: Normocephalic. Atraumatic. EYES: EOMI. No deformity. EARS: Clear. No ulcers. NOSE: Intact. No lesions. MOUTH: Clear. No discharge. THROAT: Clear. No exudate. LUNGS: Clear. No crackles. CARDIAC: S1, S2. No rub. ABDOMEN: Benign. Bowel sounds positive. GENITALIA/RECTUM: Weinberg absent. BACK/EXTREMITIES: Edema 0+. NEUROLOGICAL: Alert and motor intact. SKIN: LYMPHATICS: LABORATORY DATA: Labs show creatinine 1.7. ASSESSMENT AND PLAN: 1. Chronic kidney disease, stage 3, stable. 2. Hypertension, stable. 3. Anemia, stable. 4. We will order labs in the morning. Job ID: [id number]
--- NOTE | 2018-03-23 13:06 | EKG ---
Test Reason : CHEST PAIN Blood Pressure : / mmHG Vent. Rate : 129 BPM Atrial Rate : 150 BPM P-R Int : 160 ms QRS Dur : 084 ms QT Int : 330 ms P-R-T Axes : 086 049 081 degrees QTc Int : 483 ms Sinus tachycardia Otherwise normal ECG Confirmed by PHILLIP CARRERA ([id number]), research editor IVAN SIMS ([id number]) on 03/23/2018 1:06:40 PM Referred By: Confirmed By:PHILLIP CARRERA
--- NOTE | 2018-03-26 08:59 | DIS ---
DATE OF ADMISSION: 03/19/2018 DATE OF DISCHARGE: 03/23/2018 RESIDENT: Keily Carrington MD. ADMITTING ATTENDING: Dr. Castellanos. DISCHARGE ATTENDING: Dr. Castellanos. CONSULTS: Case Management, Cardiology, Nephrology, Pulmonology. PROCEDURES: None. PRIMARY DIAGNOSES: Bronchitis, mild chronic obstructive pulmonary disease exacerbation, congestive heart failure exacerbation, atrial arrhythmias, elevated troponin, Acute kidney injury on chronic kidney disease. SECONDARY DIAGNOSES: Exertional angina, chronic kidney disease stage 3, diabetes type 2, hypertension, hyperlipidemia, tobacco abuse, polysubstance abuse, phantom leg pain, coronary artery disease status post CABG. DISCHARGE MEDICATIONS: 1. Tylenol 650 mg oral every 4 hours as needed. 2. Amitriptyline HCL 25 mg oral at bedtime. 3. Tessalon 100 mg oral three times daily. 4. Dulcolax 10 mg oral daily as needed. 5. Coreg 3.125 mg oral twice daily with meals. 6. Omnicef 600 mg oral daily. 7. Cardizem 300 mg oral daily. 8. Nitrostat 0.4 mg sublingual every 5 minutes as needed. 9. Prednisone 40 mg oral every morning with breakfast. 10. Xarelto 15 mg oral daily. 11. Crestor 20 mg oral at bedtime. 12. Amiodarone 200 mg oral twice daily. 13. Glipizide 2.5 mg oral daily. 14. Lyrica 100 mg oral twice daily. 15. Lisinopril 20 mg oral daily. 16. Aspirin 1 tablet oral daily. 17. Lasix 40 mg oral daily. DISCONTINUED MEDICATION: 1. Chlorthalidone 25 mg oral daily. 2. Atorvastatin 10 mg oral daily. HISTORY OF PRESENT ILLNESS/HOSPITAL COURSE: This is a 62-year-old male who presented to the emergency department for evaluation of shortness of breath. The patient has a past medical history significant for CABG, CHF, COPD, diabetes type 2. The patient reported shortness of breath that had worsened over the last 3 days. The patient endorsed productive cough as well as subjective fevers. The patient also described chest tightness on admission. On admission , the patient vital signs showed a pulse of ranging from 110 to 134, respirations ranging 18 to 24, O2 saturation 98% to 99% on room air, blood pressure within normal limits. The patient's EKG revealed sinus tachycardia. In the emergency department, the patient was given Levaquin, Lasix, DuoNeb treatments, amiodarone, and steroids. On admission, the patient was found to have an elevated troponin of 0.114, which trended down to 0.082. UDS was taken from the patient and found to be positive for amphetamine, methamphetamine, cocaine, and cannabinoids. The patient's BNP was 224, which was decreased from previous hospital admissions. The patient's creatinine on admission was elevated at 2.00, this trended down to 1.73 throughout his hospitalization. Cardiology was consulted due to the patient's tachycardia. The patient sees Dr. Morales in the outpatient setting and has had a prior ablation. The patient was started on oral diltiazem, amiodarone, and Coreg to control the patient's atrial arrhythmias. As for the patient's shortness of breath, it was likely caused from bronchitis versus mild COPD exacerbation. The patient was adequately treated with antibiotics. The patient was also given Lasix due to his CHF. The patient had an echocardiogram that revealed an ejection fraction of 45 % to 50%, overall left ventricular function is mildly depressed, mild concentric left ventricular hypertrophy, left atrium moderately dilated, severe mitral regurg, and [id number] tricuspid regurg. His echocardiogram was not significantly changed from the prior echocardiogram taken in June 2017. The patient was seen by Pulmonology and followed throughout his hospitalization. They recommended no change in management. Nephrology also was consulted on the case to evaluate the patient. The patient's kidney function improved and did not require dialysis throughout his stay. Overall, the patient's shortness of breath improved throughout his hospitalization. The patient's heart rate was controlled by the end of the day and was ranging from 95 to 105. The patient was given Tessalon Perles and Robitussin for his cough that persisted throughout his stay with mild improvement. The patient was counseled on polysubstance abuse and encouraged cessation. I also encouraged cessation of tobacco use. The patient was restarted on home lisinopril for his blood pressure. DISPOSITION: Stable. DISCHARGE INSTRUCTIONS: 1. Location, home. 2. Activity, ad-herb. 3. Diet, diabetic diet, heart healthy and low sodium. 4. Followup: Follow up with PCP @ [facility] on 03/28 at 4:[address] Morales of Cardiology within 7 days. Job ID: [id number] [facility]
== END 2018-03-23 15:53 | disposition home or self-care (01) | DRG 291 ==
LOC: ERS 19:14 → IMCU/EMU 03-19 00:49
PROVIDERS: ADMIT Internal Medicine; ATTEND Internal Medicine
DX: I13.0 Hypertensive heart and chronic kidney disease with heart failure and stage 1 through stage 4 chronic kidney disease, or unspecified chronic kidney disease (principal); I50.33 Acute on chronic diastolic (congestive) heart failure; J96.00 Acute respiratory failure, unspecified whether with hypoxia or hypercapnia; J18.9 Pneumonia, unspecified organism; N17.9 Acute kidney failure, unspecified; I50.22 Chronic systolic (congestive) heart failure; I16.1 Hypertensive emergency; I47.2 Ventricular tachycardia; I48.92 Unspecified atrial flutter; J44.1 Chronic obstructive pulmonary disease with (acute) exacerbation; J44.0 Chronic obstructive pulmonary disease with (acute) lower respiratory infection; J20.9 Acute bronchitis, unspecified; R74.8 Abnormal levels of other serum enzymes; E11.22 Type 2 diabetes mellitus with diabetic chronic kidney disease; F14.10 Cocaine abuse, uncomplicated; E78.5 Hyperlipidemia, unspecified; Z89.611 Acquired absence of right leg above knee; Z89.612 Acquired absence of left leg above knee; Z95.1 Presence of aortocoronary bypass graft; F17.210 Nicotine dependence, cigarettes, uncomplicated; I49.9 Cardiac arrhythmia, unspecified; I25.119 Atherosclerotic heart disease of native coronary artery with unspecified angina pectoris; N18.3 Chronic kidney disease, stage 3 (moderate); F19.10 Other psychoactive substance abuse, uncomplicated; F12.10 Cannabis abuse, uncomplicated; D63.1 Anemia in chronic kidney disease; I48.91 Unspecified atrial fibrillation; Z95.5 Presence of coronary angioplasty implant and graft; E11.51 Type 2 diabetes mellitus with diabetic peripheral angiopathy without gangrene; B18.2 Chronic viral hepatitis C
CPT/HCPCS: 36415; 36416; 71045; 71275; 80048; 80053; 80306; 81003; 81015; 82550; 82553; 83036; 83605; 83690; 83735; 83880; 84443; 84484; 85025; 85379; 85730; 87040; 87804; 93005; 93010; 93306; 93798; 94640; 96360; 96365; 96375; J0282; J1160; J1644; J1650; J1940; J1956; J2930; J7050; J7070; J7506; J7620

== ENCOUNTER 2018-03-31 17:12 | Inpatient (IN) | payer OTHER ==
[2018-03-31] MEDS ORDERED: Ondansetron PF 4 MG/2 ML Vial ONE (18:16)
[2018-03-31 18:40] LABS: Hemoglobin 18.3 g/dL (14.0-18.0); Mean Corpuscular HGB CONC 31.7 g/dL (32.0-36.0); Mean Corpuscular Hemoglobin 27.6 pg (27.0-31.0); Mean Corpuscular Volume 87.1 fL (78.0-98.0); Mean Platelet Volume 10.2 fL (7.4-10.4); Platelet Count 304 thou/uL (130-400); RBC Distribution Width 13.4 % (11.5-14.5); Red Blood Cell (RBC) Count 6.61 mill/uL (4.70-6.10); White Blood Cell (WBC) Count 21.8 thou/uL (4.8-10.8)
[2018-03-31 18:50] LABS: Band 2 % (5-11); Large Platelets SLIGHT; Lymphocytes 8 % (21-51); MDiff Complete? YES; Monocytes 11 % (0-10); Neutrophil 79 % (42-75); Platelet Morphology Comment Appears Adequate; RBC Morphology Normal
--- NOTE | 2018-03-31 18:52 | RAD ---
RADIOGRAPH CHEST 1 VIEW: HISTORY: 62-year-old male with chest pain, tachycardia, and hypertension. FINDINGS: There are no air space densities, pulmonary edema, pneumothorax, or cardiomegaly. The lateral costop hrenic angles are sharp. There are sternotomy wires. IMPRESSION: 1. No acute cardiopulmonary findings. 2. Evidence of previous open heart surgery. mary POS: JIN
[2018-03-31 19:00] LABS: ALT (SGPT) 29 U/L (8-55); AST (SGOT) 17 U/L (5-34); Albumin 3.6 g/dL (3.5-5.0); Alkaline Phosphatase 179 U/L (40-150); Anion Gap 14 mmol/L (10-20); BUN (Urea Nitrogen) 50 mg/dL (8.4-25.7); Bilirubin, Total 0.7 mg/dL (0.2-1.2); Calc. Creatinine Clearance 0 mL/min (70-130); Calcium 9.3 mg/dL (7.8-10.44); Carbon Dioxide 22 mmol/L (22-29); Chloride 94 mmol/L (98-107); Estimated GFR-MDRD 21; Globulin 4.1 g/dL (2.4-3.5); Glucose 410 mg/dL (70-105); Lipase 40 U/L (8-78); Protein, Total 7.7 g/dL (6.0-8.3); Sodium 125 mmol/L (136-145)
[2018-03-31] MEDS ORDERED: Piperacillin/Tazobactam 3.375 GM VIAL ONE (19:24)
[2018-03-31] MEDS ORDERED: Aspirin Chewable 81 MG TAB ONE (19:39)
[2018-03-31] MEDS ORDERED: Nitroglycerin 0.4 MG TAB 1 EACH ONE (19:39)
[2018-03-31] MEDS ORDERED: Nitroglycerin 2% Ointment 1 INCH/1 GM Packet ONE (19:39)
--- NOTE | 2018-03-31 20:25 | PDOC.FPRHP ---
- History of Present Illness Chief Complaint: shortness of breath History of Present Illness: Mr. Calderon is a 62 yo AAM who presents to ED with numerous complaints. He notes that yesterday he started to have shortness of breath. Today he began to have chest pain. Pain associated with diaphoresis. Does not radiate. He has been having n/v for 2 days and hasn't kept anything down. ED Course: Zosyn, Nitro patch, 2L NS, ASA, Nitro SL, Zofran, - Allergies/Adverse Reactions Allergies Allergy/AdvReac Type Severity Reaction Status Date / Time No Known Allergies Allergy Verified 03/31/18 22:20 - Home Medications Medication Instructions Recorded Confirmed Type Pregabalin [Lyrica] 200 mg PO BID 06/18/17 03/31/18 History glipiZIDE [glipiZIDE XL] 2.5 mg PO DAILY 06/18/17 03/31/18 History Furosemide [Lasix] 40 mg PO DAILY #30 tab 06/21/17 03/31/18 Rx Amitriptyline HCl [Elavil] 25 mg PO HS #30 tab 03/23/18 03/31/18 Rx Carvedilol [Coreg] 3.125 mg PO BID-WM #60 tab 03/23/18 03/31/18 Rx Diltiazem HCl [Cardizem CD] 300 mg PO DAILY #30 cap 03/23/18 03/31/18 Rx Nitroglycerin [Nitrostat] 0.4 mg SL Q5MIN PRN #10 tab 03/23/18 03/31/18 Rx Rivaroxaban [Xarelto] 15 mg PO DAILY #30 tab 03/23/18 03/31/18 Rx Rosuvastatin [Crestor] 20 mg PO HS #30 tab 03/23/18 03/31/18 Rx Amiodarone [Cordarone] 200 mg PO DAILY 03/31/18 03/31/18 History Atorvastatin Calcium 80 mg PO HS 03/31/18 03/31/18 History Benzonatate [Tessalon] 100 mg PO TID 03/31/18 03/31/18 History Cefdinir [Omnicef] 600 mg PO DAILY 03/31/18 03/31/18 History Terbinafine [LamISIL] 250 mg PO DAILY 03/31/18 03/31/18 History Varenicline Tartrate [Chantix] 1 mg PO BID 03/31/18 03/31/18 History predniSONE 20 mg PO QAM-WM 03/31/18 03/31/18 History - History PMHx: T2DM, CAD, HLD PSHx: B/l BKAs FHx: Father- Lung cancer Sibling/Mother- DMII Social: Lives alone, ambulates in wheelchair Drinks alcohol 2-3x week, 45yr smoking hx 1/2pk/day, marijuana 2-3x week - Review of Systems General: denies: fever/chills, weight/appetite/sleep changes Eyes: denies: eye pain, vision changes ENT: reports: nasal congestion. denies: rhinorrhea Respiratory: reports: congestion, shortness of breath. denies: cough Cardiovascular: reports: chest pain. denies: palpitation, edema Gastrointestinal: reports: nausea, vomiting, abdominal pain. denies: diarrhea, constipation Genitourinary: denies: dysuria, polyuria Skin: denies: rashes, lesions Musculoskeletal: reports: pain. denies: swelling Neurological: denies: numbness, weakness - Vital signs BP: 226/127 HR: 98 RR: 18 Tmax: 97.8 Pox: 100% on RA Wt: 54.43 - Physical Exam Constitutional: awake, alert and oriented -Constitutional: hiccuping HEENT: normocephalic and atraumatic, EOMI, conjunctiva clear, MMM, oropharynx clear, other (poor dentition) Neck: supple, trachea midline, no JVD, no bruits Heart: RRR, no murmurs/rubs/gallops Lungs: CTAB, no wheezing Abdomen: soft, bowel sounds present, other (hiatal hernia) -Abdomen: tenderness upper right and left quadrant Musculoskeletal: normal tone, ROM grossly normal -Musculoskeletal: bilateral BKAs Neurological: no focal deficit Skin: no rash/lesions, capillary refill <2 seconds Psychiatric: normal mood and affect, good judgment and insight, intact recent and remote memory FMR H&P: Results - Labs Result Diagrams: 04/01/18 05:25 03/31/18 18:08 Lab results: WBC 21.8 thou/uL (4.8-10.8) H 03/31/18 18:08 Hgb 18.3 g/dL (14.0-18.0) H 03/31/18 18:08 Hct 57.6 % (42.0-52.0) H 03/31/18 18:08 MCV 87.1 fL (78.0-98.0) 03/31/18 18:08 Plt Count 304 thou/uL (130-400) 03/31/18 18:08 Band Neuts % (Manual) 2 % (5-11) L 03/31/18 18:08 Sodium 125 mmol/L (136-145) L 03/31/18 18:08 Potassium 5.0 mmol/L (3.5-5.1) 03/31/18 18:08 Chloride 94 mmol/L (98-107) L 03/31/18 18:08 Carbon Dioxide 22 mmol/L (22-29) 03/31/18 18:08 BUN 50 mg/dL (8.4-25.7) H 03/31/18 18:08 Creatinine 3.58 mg/dL (0.7-1.3) H 03/31/18 18:08 Glucose 410 mg/dL (70-105) H 03/31/18 18:08 Lactic Acid 1.6 mmol/L (0.5-2.2) 03/31/18 19:32 Calcium 9.3 mg/dL (7.8-10.44) 03/31/18 18:08 Total Bilirubin 0.7 mg/dL (0.2-1.2) 03/31/18 18:08 AST 17 U/L (5-34) 03/31/18 18:08 ALT 29 U/L (8-55) 03/31/18 18:08 Alkaline Phosphatase 179 U/L (40-150) H 03/31/18 18:08 CK-MB (CK-2) 5.0 ng/mL (0-6.6) 03/31/18 18:08 Serum Total Protein 7.7 g/dL (6.0-8.3) 03/31/18 18:08 Albumin 3.6 g/dL (3.5-5.0) 03/31/18 18:08 Lipase 40 U/L (8-78) 03/31/18 18:08 - Radiology Interpretation CT scan - abdomen Status: report reviewed by me Additional comment: Constipation, atherosclerosis Chest x-ray Status: report reviewed by me Additional comment: No acute findings FMR H&P: A/P - Problem List (1) Acute on chronic diastolic (congestive) heart failure Current Visit: No Status: Acute Code(s): I50.33 - ACUTE ON CHRONIC DIASTOLIC (CONGESTIVE) HEART FAILURE (2) CAD (coronary artery disease) Current Visit: No Status: Acute Code(s): I25.10 - ATHSCL HEART DISEASE OF [place] CORONARY ARTERY W/O ANG PCTRS (3) DM2 (diabetes mellitus, type 2) Current Visit: No Status: Acute Comment: Controlled. (4) Elevated troponin I level Current Visit: No Status: Acute Code(s): R74.8 - ABNORMAL LEVELS OF OTHER SERUM ENZYMES (5) HTN (hypertension) Current Visit: No Status: Acute Code(s): I10 - ESSENTIAL (PRIMARY) HYPERTENSION (6) HLD (hyperlipidemia) Current Visit: No Status: Chronic Code(s): E78.5 - HYPERLIPIDEMIA, UNSPECIFIED Qualifiers: (7) S/P AKA (above knee amputation) bilateral Current Visit: No Status: Chronic Code(s): Z89.611 - ACQUIRED ABSENCE OF RIGHT LEG ABOVE KNEE; Z89.612 - ACQUIRED ABSENCE OF LEFT LEG ABOVE KNEE (8) S/P CABG x 4 Current Visit: No Status: Chronic (9) Tobacco abuse Current Visit: No Status: Chronic Code(s): Z72.0 - TOBACCO USE - Plan Mr Calderon is a 62yo male presenting Atypical Chest Pain - Trend trops - Resolved after SL nitro - EKG no ST segment changes - Ordered TSH, Mg, Phos - Consider stress test prior to d/c - Admit to tele Hypertensive Urgency - PRN labetalol for SBP >180 - Continue home meds, hasn't been able to take due to n/v Nausea & Vomiting/ malaise - Will check flu swab due to constellation of symptoms HFrEF - Echo 03/20: 40-45% EF, severe mitral regurg - Daily wts, fluid restriction, HH diet, Strict I&Os - Ordered BNP - Continue home meds DMII - Hold home glipizide - SSI - Accuchecks ACHS - Hypoglycemic protocol Leukocytosis - Likely 2/2 recent steroid taper - S/p Zosyn in ED - F/u blood cx obtained in ED - Continue to trend with AM CBC WILLIS on CKD3 - Avoid nephrotoxic meds - Cr 3.58 - Continue to monitor Diaphragmatic spasm - Protonix - Consider baclofen or gabapentin - Avoid compazine COPD - Duonebs PRN Hx of Afib/Aflutter - Currently NSR - Converted last hospitalization with Dilt and Amio - Xarelto for anticoagulation - Continue home meds HLD - Continue Crestor CAD s/p CABG x4 - Continue home meds Tobacco Abuse - Encourage cessation - Holding Chantix due to n/v Code Status: FULL DVT ppx: Heparin PCP: Dr Zeb DENTON FMR H&P: Upper Level - Pertinent history 62 yo M with PMHx CHF, CKD, CAD s/p CABG presents to ED with cc of chest pain, n /v. He notes that 2 days ago he started to be come nauseous with little appetite. When he would eat, he would throw it back up. Earlier today, he noticed some chest pain/pressure in his chest and got a little relief with nitro in ED. At this time, he is pain free. He also complains of some overall bodyaches. He has not taken his meds in a couple of days because of the nausea. - Pertinent findings VS reviewed: hypertensive, tachycardic Labs: WILLIS on CKD, hyperglycemia, leukocytosis EKG: sinus tachycardia Gen: awake, alert, oriented HEENT: atraumatic, normocephalic, dry MM, muddy sclera CV: RRR, no murmur noted RESP: CTAB ABD: soft, nontender, nondistended BACK: no CVAT EXT: BL AKA, no ulcers or rashes, no edema NEURO: moving all extremities, no facial droop SKIN: no rashes, lesions - Plan Date/Time: 03/31/182024 62 yo M with h/o CHF, CAD and HTN here with atypical chest pain, n/v 1. Atypical Chest Pain: Trend cardiac enzymes, monitor on tele. Check TSH, Mg, Phos. Pain resolved at this time. Consider stress test after hypertensive urgency under better control. 2. Hypertensive urgency: PRN labetalol. Add hydralazine if needed. Resume home meds when able if n/v controlled 3. sCHF: Echo earlier this month. Fluid restrict. Home meds 4. WILLIS on CKD: Fluid status difficult to ascertain. Will monitor closely and consider re-consulting nephrology if worsening. Likely related to dehydration with n/v but need to be careful with fluids because of hypertension and CHF. 5. T2DM: Last a1c 6.8 this month. SSI. Holding home glipizide in setting of WILLIS. Hyperglycemia likely 2/2 recent steroid taper. ADA diet. 6. Leukocytosis: Likely 2/2 recent steroids. Monitor for fever. BCx and UCx ordered in ED. 7. Hiccups: Trial of baclofen or gabapentin if persistent. PPI. 8. COPD: PRN duonebs. Likely needs to be on Spiriva or other daily maintenance with recent hospitalization. 9. H/o a fib/flutter: NSR at this time. home xarelto and rate control meds. 10. HLD: Crestor 11. CAD s/p 4V CABG: Home meds 12. Malaise/body aches: Flu pending 13. Tobacco abuse: Encouraged cessation. Hold Chantix if no intention to quit smoking. 14. PVD 15. MJ abuse: Encouraged cessation. I, Pauly Perry MD, PGY-3, have evaluated this patient and agree with findings/ plan as outlined by network intern resident. Pertinent changes/additions are listed here. Addendum - Attending - Attending Attestation Date/Time: 04/01/18 [id number] I personally evaluated the patient and discussed the management with Dr. Chaudhari I agree with the History, Examination, Assessment and Plan documented above.Readmission of 62 yo male with elevated blood pressure, chest pain,N/V and singultus PMHX: CAD(CABG),PVD(BAKA),DM2,polysubstance abuse and Atrial fib/flutter s/p ablation recent started on cardarone,diltiazem and coreg with conversion, WILLIS will need further cardiac evaluation when BP better controlled.
--- NOTE | 2018-03-31 21:32 | CT ---
CT ABDOMEN AND PELVIS NONCONTRAST: History: Flank pain. FINDINGS: Each renal collecting system, ureter, and urinary bladder are decompressed without stone evident. Adelfo cifications at each renal hilum are arterial. There is prominent calcification throughout the arteria l structures. Aortoiliac stent partially visualized. Lack of contrast limits evaluation for other abnormalities. Emphysematous changes at the lung bases. Degenerative changes lumbar spine. IMPRESSION: 1. No CT evidence of urinary tract obstruction or calcification. 2. Constipation. 3. Atherosclerosis. POS: ELPIDIO
[2018-03-31 21:33] LABS: Bilirubin Negative (Negative); Blood, Urine Trace (Negative); Clarity CLEAR (Clear); Glucose, Urine (Dipstick) >=1000 mg/dL (Negative); Leukocyte Negative (Negative); Nitrite Negative (Negative); Protein, Urine (Dipstick) 300 mg/dL (Neg-Trace); Specific Gravity, Urine 1.023 (1.002-1.036); Urobilinogen 0.2 mg/dL (0.2-1.0)
[2018-03-31 21:35] LABS: Bacteria/HPF Rare-Few HPF (None Seen); Hyaline Casts/LPF 0-3 HYALINE CAST LPF (0-3 Hyaline); Pathc Cast-AUWi Flag 0.29 (0-2.49); RBC/HPF 0-3 HPF (0-3); Squamous Epithelial 0-3 HPF (0-3); WBC/HPF 0-3 HPF (0-3)
[2018-03-31 21:44] LABS: Transitional Epithelial 0-3 HPF (0-3)
[2018-03-31 22:00] LABS: Troponin I 0.184 ng/mL (< 0.028)
[2018-03-31] MEDS ORDERED: Lactated Ringer's 1,000 ML IV SCH (22:00)
[2018-03-31 22:03] VITALS: BMI 23.6
[2018-03-31] MEDS ORDERED: Ondansetron ODT 4 MG TAB PO PRN (22:14)
[2018-03-31] MEDS ORDERED: Ondansetron PF 4 MG/2 ML Vial IVP PRN (22:14)
[2018-03-31] MEDS ORDERED: Nitroglycerin 0.4 MG TAB (25 Tab Bottle) SL PRN (22:20)
[2018-03-31] MEDS ORDERED: Promethazine 25 MG TAB PO PRN (22:26)
[2018-03-31] MEDS: Labetalol HCl 100 MG/20 ML VIAL SLOW IVP PRN (22:43)
[2018-03-31 22:49] LABS: Magnesium 1.9 mg/dL (1.6-2.6); Phosphorus 4.1 mg/dL (2.3-4.7)
[2018-03-31 22:52] LABS: Amphetamine Not Detected (NotDetected); Barbiturates Screen Not Detected (NotDetected); Benzodiazepine Screen Not Detected (NotDetected); Cocaine Metabolite Screen Not Detected (NotDetected); Medtox Control Line Valid? VALID (VALID); Medtox Reader # READER 1; Methadone Not Detected (NotDetected); Methamphetamine Not Detected (NotDetected); Opiate Screen Not Detected (NotDetected); Oxycodone Screen Not Detected (NotDetected); Phencyclidine (PCP) Not Detected (NotDetected); THC/Cannabinoid Screen Detected (NotDetected); Tricyclic Screen Detected (NotDetected)
[2018-03-31] MEDS ORDERED: Dextrose 5% in Water 1,000 ML IV PRN (23:22)
[2018-03-31] MEDS ORDERED: Dextrose 50% Abboject 50 ML SYRINGE SLOW IVP PRN (23:22)
[2018-04-01 01:34] LABS: Troponin I 0.193 ng/mL (< 0.028)
[2018-04-01] MEDS: Labetalol HCl 100 MG/20 ML VIAL SLOW IVP PRN (04:46)
[2018-04-01] MEDS ORDERED: Baclofen 10 MG TAB PO PRN (04:53)
[2018-04-01] MEDS: HumaLOG 300 UNITS/3 ML VIAL SC PRN ×2 (05:34→12:20)
[2018-04-01 06:17] LABS: #Lymphocytes 1.7 thou/uL (1.20-3.40); #Monocytes 1.1 thou/uL (0.11-0.59); #Neutrophils 14.9 thou/uL (1.40-6.50); %Basophils 0.2 % (0.0-1.0); %Eosinophils 0.2 % (0.0-10.0); %Lymphocytes 9.3 % (21.0-51.0); %Monocytes 6.1 % (0.0-10.0); %Neutrophils 84.1 % (42.0-75.0); Hemoglobin 16.4 g/dL (14.0-18.0); Mean Corpuscular HGB CONC 32.5 g/dL (32.0-36.0); Mean Corpuscular Hemoglobin 28.4 pg (27.0-31.0); Mean Corpuscular Volume 87.4 fL (78.0-98.0); Platelet Count 261 thou/uL (130-400); RBC Distribution Width 13.2 % (11.5-14.5); Red Blood Cell (RBC) Count 5.79 mill/uL (4.70-6.10); White Blood Cell (WBC) Count 17.7 thou/uL (4.8-10.8)
[2018-04-01 06:40] LABS: Anion Gap 15 mmol/L (10-20); BUN (Urea Nitrogen) 56 mg/dL (8.4-25.7); Calc. Creatinine Clearance 17 mL/min (70-130); Calcium 8.7 mg/dL (7.8-10.44); Carbon Dioxide 18 mmol/L (22-29); Chloride 97 mmol/L (98-107); Estimated GFR-MDRD 20; Glucose 341 mg/dL (70-105); Potassium 5.1 mmol/L (3.5-5.1); Sodium 125 mmol/L (136-145)
--- NOTE | 2018-04-01 06:51 | PDOC.FM ---
- Subjective Subjective: Mr. Calderon is resting comfortably in bed, he denies n/v, SOB, or chest pain - Objective Vital Signs & Weight: Vital Signs (12 hours) Temp Pulse Resp BP BP Pulse Ox 04/01/18 05:38 84 142/96 H 04/01/18 04:46 94 182/102 H 04/01/18 04:37 97.9 F 94 16 182/102 H 100 03/31/18 23:57 97.8 F 88 16 184/104 H 97 03/31/18 22:43 97 222/116 H 03/31/18 22:15 98 F 95 16 209/106 H 97 03/31/18 22:14 97 Weight Weight 58.542 kg I&O: 03/30/18 03/31/18 04/01/18 06:59 06:59 06:59 Intake Total 480 Output Total 0 Balance 480 Result Diagrams: 04/01/18 05:25 04/01/18 05:25 Phys Exam - Physical Examination Constitutional: NAD dry MMs Neck: no JVD, supple b/l ronchi Cardiovascular: RRR, no significant murmur Gastrointestinal: soft, non-tender b/l AKA Neurological: moves all 4 limbs Lymphatic: no nodes Deviation from normal: alexandra affect Skin: no rash Dx/Plan (1) Acute on chronic diastolic (congestive) heart failure Code(s): I50.33 - ACUTE ON CHRONIC DIASTOLIC (CONGESTIVE) HEART FAILURE Status : Acute (2) Acute on chronic kidney failure Code(s): N17.9 - ACUTE KIDNEY FAILURE, UNSPECIFIED; N18.9 - CHRONIC KIDNEY DISEASE, UNSPECIFIED Status: Acute Qualifiers: (3) CAD (coronary artery disease) Code(s): I25.10 - ATHSCL HEART DISEASE OF [place] CORONARY ARTERY W/O ANG PCTRS Status: Acute (4) DM2 (diabetes mellitus, type 2) Status: Acute (5) HTN (hypertension) Code(s): I10 - ESSENTIAL (PRIMARY) HYPERTENSION Status: Acute (6) S/P AKA (above knee amputation) bilateral Code(s): Z89.611 - ACQUIRED ABSENCE OF RIGHT LEG ABOVE KNEE; Z89.612 - ACQUIRED ABSENCE OF LEFT LEG ABOVE KNEE Status: Chronic - Plan Plan: Atypical Chest Pain - troponins at baseline/down-trending, EKG no ST segment changes, no further CP - TSH, Mg, Phos wnl - monitor on tele, EKG/trop for repeated chest pain Hypertensive Urgency - PRN labetalol for SBP >180 - Continue home meds, hasn't been able to take due to n/v Nausea & Vomiting/ malaise - Will check flu swab due to constellation of symptoms HFrEF - Echo 03/20: 40-45% EF, severe mitral regurg - Daily wts, fluid restriction, HH diet, Strict I&Os - BNP elevated on admission - Continue home meds DMII - consider restarting home glipizide - SSI - Accuchecks ACHS - Hypoglycemic protocol Leukocytosis - Likely 2/2 recent steroid taper - S/p Zosyn in ED - F/u blood cx obtained in ED - Continue to trend with AM CBC WILLIS on CKD3 - Avoid nephrotoxic meds - Cr 3.58 - Continue to monitor Diaphragmatic spasm - Protonix - Consider baclofen, gabapentin, direct inhibition - Avoid compazine COPD - Duonebs PRN Hx of Afib/Aflutter - Currently NSR - Converted last hospitalization with Dilt and Amio - Xarelto for anticoagulation - Continue home meds HLD - Continue Crestor CAD s/p CABG x4 - Continue home meds Tobacco Abuse - Encourage cessation - Holding Chantix due to n/v Code Status: FULL DVT ppx: Heparin dispo: monitor on tele, treat n/v, continue home meds Addendum - Attending - Attending Attestation Date/Time: 04/01/18 [id number] I personally evaluated the patient and discussed the management with Dr. Steele I agree with the History, Examination, Assessment and Plan documented above with any addition or exceptions noted below - Patient without complaints. Feeling better. Afebrile VSS. A/P: 1) Atypical chest pain- indeterminate troponins. No further chest pain. 2) WILLIS on CKD stage 3 - started on IV hydration. CHeck urine studies. Consider renal ultrasound. Recheck in AM, if not improved will consult nephrology. 3) DM- BG not well controlled; start basal insulin.
[2018-04-01] MEDS ORDERED: Carvedilol 3.125 MG TAB PO SCH (08:00)
[2018-04-01] MEDS: Heparin 5,000 UNITS/ML VIAL SC SCH ×2 (08:30→14:27)
[2018-04-01] MEDS: Benzonatate 100 MG CAP PO SCH ×2 (08:31→14:28)
[2018-04-01] MEDS: Amiodarone 200 MG TAB PO SCH (08:31)
[2018-04-01] MEDS: Rivaroxaban 15 MG TAB PO SCH (08:31)
[2018-04-01] MEDS ORDERED: Varenicline Tartrate 0.5 MG TAB PO SCH (09:00)
[2018-04-01] MEDS ORDERED: Pregabalin 50 MG CAP PO SCH ×3 (09:00→10:00)
[2018-04-01] MEDS ORDERED: Furosemide 40 MG TAB PO SCH (09:00)
[2018-04-01] MEDS ORDERED: Diltiazem HCl CD 300 mg Capsule PO SCH (09:00)
[2018-04-01] MEDS: Lactated Ringer's 1,000 ML IV SCH ×2 (09:25→20:45)
[2018-04-01 15:38] LABS: Hemoglobin 14.1 g/dL (14.0-18.0); Mean Corpuscular HGB CONC 30.8 g/dL (32.0-36.0); Mean Corpuscular Volume 87.6 fL (78.0-98.0); Mean Platelet Volume 9.5 fL (7.4-10.4); Platelet Count 246 thou/uL (130-400); RBC Distribution Width 13.3 % (11.5-14.5); Red Blood Cell (RBC) Count 5.24 mill/uL (4.70-6.10); White Blood Cell (WBC) Count 14.9 thou/uL (4.8-10.8)
--- NOTE | 2018-04-01 15:40 | PDOC.EVN ---
Event Note - Event Note Event Note: Residents paged at 1440 for increased somnolence and hypotension. Evaluation of pt revealed arousable to vigorous stimulation/pain, unable to voice any complaints besides somnolence. PE similar to previous, skin notably cold/clammy , weak pulse. Nurse reported a status change from the last time she had checked on him, blood pressures in the 80s/40s, and pulse in the 50s. No recent medication given, no visitors recently or drop in O2 saturation. ABG, CBC, CMP, LA, ammonia, d-dimer, trop EKG and CXR ordered. 1L bolus NaCl began. Code green and subsequent Code blue called. pt having apneic spells. ABG returned wnl, transferred to ICU. Dr. Yeung present, accepts transfer to ICU. Date/Time: 04/01/18 [id number] I personally evaluated the patient and discussed the management with Dr. Steele. Patient with acute change this afternoon. Somnolent; minimally arousable and hypotensive. Code green called due to hypotension. Noted to also have some apneic spells. EKG- NSR. Fluid bolus given with improvement in BP. Patient more alert. Transferred to ICU for close monitoring. Dr. Yeung consulted and appreciate assistance. Also per nursing- no urine output since admission- will place nayak; strict I/Os. recheck CMP.
[2018-04-01 15:41] LABS: Lactic Acid 2.2 mmol/L (0.5-2.2)
[2018-04-01 15:49] LABS: Actual Bicarbonate (HCO3a) 16.4 mEq/L (22-28); Analyzer IN Cardio OR; Base Excess (BEa) -5.4 mEq/L (-2.0 to +3.0); Calcium, Ionized 1.09 mmol/L (1.12-1.30); Carboxyhemoglobin (COHb) 0.7 gm% (0.0-3.0); Hemoglobin (Hb) 15.3 g/dL (14.0-18.0); O2 Tension (PaO2) 85.9 mmHg (> 80.0); Potassium - ABG Lab 4.34 mmol/L (3.70-5.30); pH, Arterial 7.45 (7.35-7.45)
[2018-04-01 15:50] LABS: ALV-art Gradient 33.705 (0-20); CO2 Tension 24.1 mmHg (35.0-45.0); Puncture Site LR
[2018-04-01 15:51] LABS: Troponin I 0.157 ng/mL (< 0.028)
[2018-04-01 15:54] LABS: #Lymphocytes 2.6 thou/uL (1.20-3.40); #Monocytes 1.3 thou/uL (0.11-0.59); #Neutrophils 11.1 thou/uL (1.40-6.50); %Basophils 0.2 % (0.0-1.0); %Eosinophils 0.2 % (0.0-10.0); %Lymphocytes 17.1 % (21.0-51.0); %Monocytes 8.4 % (0.0-10.0); %Neutrophils 74.2 % (42.0-75.0); Burr Cells SLIGHT = 2-5 cells (100X) (0-1/hpf); Large Platelets SLIGHT; MDiff Complete? YES; Platelet Morphology Comment Appears Adequate
[2018-04-01 15:55] LABS: ALT (SGPT) 23 U/L (8-55); AST (SGOT) 15 U/L (5-34); Albumin 2.5 g/dL (3.5-5.0); Alkaline Phosphatase 110 U/L (40-150); Anion Gap 18 mmol/L (10-20); BUN (Urea Nitrogen) 63 mg/dL (8.4-25.7); Bilirubin, Total 0.5 mg/dL (0.2-1.2); Calc. Creatinine Clearance 18 mL/min (70-130); Calcium 7.6 mg/dL (7.8-10.44); Carbon Dioxide 14 mmol/L (22-29); Chloride 102 mmol/L (98-107); Estimated GFR-MDRD 19; Globulin 2.4 g/dL (2.4-3.5); Glucose 235 mg/dL (70-105); Potassium 4.8 mmol/L (3.5-5.1); Protein, Total 4.9 g/dL (6.0-8.3); Sodium 129 mmol/L (136-145)
[2018-04-01 17:44] LABS: Amphetamine Not Detected (NotDetected); Barbiturates Screen Not Detected (NotDetected); Benzodiazepine Screen Not Detected (NotDetected); Cocaine Metabolite Screen Not Detected (NotDetected); Medtox Control Line Valid? VALID (VALID); Medtox Reader # READER 4; Methadone Not Detected (NotDetected); Methamphetamine Not Detected (NotDetected); Opiate Screen Not Detected (NotDetected); Oxycodone Screen Not Detected (NotDetected); Phencyclidine (PCP) Not Detected (NotDetected); THC/Cannabinoid Screen Detected (NotDetected); Tricyclic Screen Not Detected (NotDetected)
[2018-04-01] MEDS: Rosuvastatin 20 MG TAB PO SCH (20:43)
[2018-04-01] MEDS: Amitriptyline HCl 25 MG TAB PO SCH (20:44)
[2018-04-01] MEDS: Pregabalin 50 MG CAP PO SCH (20:44)
[2018-04-01] MEDS ORDERED: Atorvastatin Calcium 40 MG TAB PO SCH (21:00)
--- NOTE | 2018-04-01 21:43 | CON ---
DATE OF CONSULTATION: 04/01/2018 SERVICE: Pulmonary Medicine. REASON FOR CONSULTATION: Blaze jacobs. HISTORY OF PRESENT ILLNESS: The patient is a 62-year-old male with past medical history significant for peripheral vascular disease. He has undergone bilateral BKAs. He came into the hospital yesterday because of elevated blood pressure, some degree of shortness of breath, chest pain. He had been having nausea and vomiting for two days prior to coming in and was not able to keep anything down. Because the BNP was 600, he was given Lasix and blood pressure medication. This morning, he was poorly responsive. His blood pressures were extremely low, and he was even not waking up. By looking at his breathing pattern, he would go completely apneic and have a couple of obstructive events. Then, he will wake up, take several good deep breaths, and go back to sleep. We had an ABG that was reassuring. That being said, because of marginal blood pressures, he was transitioned to the ICU for closer observation. When the patient wakes up, he denies having nausea, vomiting, fevers, chills, shortness of breath, cough, sputum production, hot, red, or swollen joints or rashes anywhere. He denies having any abdominal discomfort at this time. The Zofran worked fairly well for his nausea. That being said, he still has not kept much down today. PAST MEDICAL HISTORY: 1. Type 2 diabetes mellitus. 2. Dyslipidemia. 3. Coronary artery disease. PAST SURGICAL HISTORY: Bilateral above-knee amputations. FAMILY HISTORY: Noncontributory. SOCIAL HISTORY: He drinks 2-3 times per week. He smokes a half a pack on a daily basis, and has a greater than [id number] history of smoking. He uses marijuana recreationally. He denies any other illicit drugs that require IV use. He has no exposure to chemicals, dust, asbestos, or tuberculosis. ALLERGIES: NO KNOWN DRUG ALLERGIES. MEDICATIONS: List of his inpatient medications was reviewed. No specific updates were made at this time. REVIEW OF SYSTEMS: General, head, ears, eyes, nose, throat, cardiovascular, respiratory, GI, , musculoskeletal, neurologic, and skin are negative except as mentioned is the HPI. PHYSICAL EXAMINATION: VITAL SIGNS: Afebrile, pulse 59, respirations 14, saturation 100% on room air. GENERAL: The patient is awake and alert, in no apparent distress. This is interposed with increasing somnolence that requires significant stimulation to wake him up. HEENT: Normocephalic and atraumatic. Sclerae are white. Conjunctivae are pink. Oral mucosa is moist without lesions. LUNGS: Decent air entry. There is no prolonged expiratory phase or wheezing appreciated. HEART: Normal rate, regular. ABDOMEN: Soft, nontender, and nondistended. Bowel sounds are positive. MUSCULOSKELETAL: No cyanosis or clubbing. There is no pitting in the bilateral lower extremities. Skin tenting is noted. : No Weinberg. NEUROLOGIC: Grossly nonfocal LABORATORY DATA: WBC 14.9, hemoglobin 14.1, platelets 246,000. PH 7.4, pCO2 30 , PO2 110. Sodium 125, which is well below his baseline, creatinine 3.74, gently uptrending (above baseline of close to 2). Troponin 0.157, downtrending. TSH falls within normal limits. Magnesium and phosphorus are normal. Liver function studies are unremarkable. Urinalysis is positive for proteinuria, and glycosuria, but otherwise unremarkable. Urine drug screen is positive for cannabinoids, and tricyclic antidepressants. Influenza A and B are negative, urine culture and blood culture unremarkable. IMAGING: CT of the abdomen and pelvis demonstrates no acute abnormality. There is no obstruction, or calcification. Constipation is noted as well as atherosclerosis. Chest x-ray demonstrates no acute cardiopulmonary abnormality. Previous sternotomy is noted. ASSESSMENT: 1. Dehydration, severe. 2. Gastroenteritis, suspected. 3. Acute kidney injury on chronic kidney disease, 4. 4. Bradyarrhythmia. 5. Obstructive sleep apnea, witnessed at bedside. DISCUSSION AND PLAN: We will move the patient to the ICU. We will give him a L or 2 of fluid to see how he tolerates this. Lasix will be completely interrupted. Cardiology consultation will be considered, particularly if the patient's bradyarrhythmia does not improve. Rate control medications will be interrupted for the time being. 70 minutes have been devoted to this patient in various activities. I personally reviewed all imaging studies and laboratory data noted within this document. For fifty percent of this time, I was interacting with the patient at the bedside or coordinating care with the care team. For the remainder of the time I was immediately available to the patient in the hospital unit. Job ID: [id number] [facility]
[2018-04-01 23:29] LABS: #Eosinphils 0.1 thou/uL (0.0-0.7); #Lymphocytes 2.4 thou/uL (1.20-3.40); #Monocytes 1.5 thou/uL (0.11-0.59); %Basophils 0.2 % (0.0-1.0); %Eosinophils 0.6 % (0.0-10.0); %Lymphocytes 14.9 % (21.0-51.0); %Monocytes 9.2 % (0.0-10.0); %Neutrophils 75.2 % (42.0-75.0); Hemoglobin 13.7 g/dL (14.0-18.0); Mean Corpuscular HGB CONC 32.6 g/dL (32.0-36.0); Mean Corpuscular Hemoglobin 28.7 pg (27.0-31.0); Mean Corpuscular Volume 87.9 fL (78.0-98.0); Mean Platelet Volume 9.5 fL (7.4-10.4); Platelet Count 213 thou/uL (130-400); RBC Distribution Width 13.2 % (11.5-14.5); Red Blood Cell (RBC) Count 4.78 mill/uL (4.70-6.10)
--- NOTE | 2018-04-01 23:39 | PDOC.EVN ---
Event Note - Event Note Event Note: Called to see Patient 62 yo DM with hx CAD,PVD,COPD,polysubstance abuse and recurrent episodes of hypotension and unresponsiveness. Patient visited earlier this pm and he was alert coherent with good response to IV fluid challenge with increased urinary outpt. Patient with suspected OLI. Patient now with recurrent hypotensive episode BP 87/52 , P 80 NSR and unresponsiveness. On BiPap decreased urinary output last hour( was 500 ml this nursing shift) pulse 80s sinus.EKG with no acute ischemic changes to my read earlier EKG with lateral ST changes. Concern silent ischemic episodes, central apnea,drug related affect, adrenal insufficiency, doubt sepsis will check CBC CMP and troponin BP has recovered and patient more responsive now. Rec continued BiPap through night
[2018-04-01 23:50] LABS: ALT (SGPT) 22 U/L (8-55); AST (SGOT) 19 U/L (5-34); Albumin 2.4 g/dL (3.5-5.0); Alkaline Phosphatase 100 U/L (40-150); Anion Gap 12 mmol/L (10-20); BUN (Urea Nitrogen) 59 mg/dL (8.4-25.7); Bilirubin, Total 0.5 mg/dL (0.2-1.2); Calc. Creatinine Clearance 19 mL/min (70-130); Calcium 7.7 mg/dL (7.8-10.44); Carbon Dioxide 20 mmol/L (22-29); Chloride 105 mmol/L (98-107); Estimated GFR-MDRD 21; Globulin 2.5 g/dL (2.4-3.5); Glucose 187 mg/dL (70-105); Potassium 4.2 mmol/L (3.5-5.1); Protein, Total 4.9 g/dL (6.0-8.3); Sodium 133 mmol/L (136-145)
[2018-04-01 23:53] LABS: Troponin I 0.127 ng/mL (< 0.028)
[2018-04-02] MEDS: Lactated Ringer's 1,000 ML IV SCH ×3 (04:18→21:15)
[2018-04-02 05:01] LABS: #Eosinphils 0.1 thou/uL (0.0-0.7); #Lymphocytes 2.9 thou/uL (1.20-3.40); #Monocytes 1.3 thou/uL (0.11-0.59); #Neutrophils 10.3 thou/uL (1.40-6.50); %Basophils 0.2 % (0.0-1.0); %Eosinophils 0.8 % (0.0-10.0); %Lymphocytes 19.5 % (21.0-51.0); %Monocytes 8.7 % (0.0-10.0); %Neutrophils 70.7 % (42.0-75.0); Hemoglobin 13.5 g/dL (14.0-18.0); Mean Corpuscular HGB CONC 32.1 g/dL (32.0-36.0); Mean Corpuscular Hemoglobin 28.4 pg (27.0-31.0); Mean Corpuscular Volume 88.6 fL (78.0-98.0); Mean Platelet Volume 9.4 fL (7.4-10.4); Platelet Count 208 thou/uL (130-400); RBC Distribution Width 13.2 % (11.5-14.5); Red Blood Cell (RBC) Count 4.74 mill/uL (4.70-6.10); White Blood Cell (WBC) Count 14.6 thou/uL (4.8-10.8)
[2018-04-02 05:21] LABS: Anion Gap 12 mmol/L (10-20); BUN (Urea Nitrogen) 56 mg/dL (8.4-25.7); Calc. Creatinine Clearance 19 mL/min (70-130); Calcium 7.6 mg/dL (7.8-10.44); Carbon Dioxide 19 mmol/L (22-29); Chloride 106 mmol/L (98-107); Estimated GFR-MDRD 21; Glucose 186 mg/dL (70-105); Sodium 133 mmol/L (136-145)
--- NOTE | 2018-04-02 06:41 | PDOC.FM ---
- Subjective Subjective: Mr. Calderon is resting comfortably in bed on BiPap, he reports feeling well, denies pain, fever, SOB, abdominal upset. He had similar apneic/hypotension/ bradycardia episodes overnight, responding to fluid bolus. - Objective Vital Signs & Weight: Vital Signs (12 hours) Temp Pulse Resp Pulse Ox 04/02/18 04:00 98.0 F 04/02/18 02:04 86 15 98 04/01/18 22:37 81 14 96 04/01/18 20:00 97.6 F 98 Weight Weight 61.6 kg Most Recent Monitor Data Heart Rate from ECG 84 NIBP 107/65 NIBP BP-Mean 85 Respiration from ECG 14 SpO2 98 I&O: 03/31/18 04/01/18 04/02/18 06:59 06:59 06:59 Intake Total 480 2536.9 Output Total 0 2435 Balance 480 101.9 Result Diagrams: 04/02/18 04:23 04/02/18 04:23 Phys Exam - Physical Examination Constitutional: NAD HEENT: PERRLA, moist MMs Neck: no nodes, no JVD Respiratory: no wheezing (ronchi present, poor air movement ) Cardiovascular: RRR, no significant murmur, no rub Gastrointestinal: soft, non-tender, no distention b/l AKA Neurological: non-focal, normal sensation Lymphatic: no nodes Psychiatric: normal affect, A&O x 3 Skin: no rash, normal turgor Dx/Plan (1) Acute on chronic diastolic (congestive) heart failure Code(s): I50.33 - ACUTE ON CHRONIC DIASTOLIC (CONGESTIVE) HEART FAILURE Status : Acute (2) Acute on chronic kidney failure Code(s): N17.9 - ACUTE KIDNEY FAILURE, UNSPECIFIED; N18.9 - CHRONIC KIDNEY DISEASE, UNSPECIFIED Status: Acute Qualifiers: (3) CAD (coronary artery disease) Code(s): I25.10 - ATHSCL HEART DISEASE OF [place] CORONARY ARTERY W/O ANG PCTRS Status: Acute (4) DM2 (diabetes mellitus, type 2) Status: Acute (5) HTN (hypertension) Code(s): I10 - ESSENTIAL (PRIMARY) HYPERTENSION Status: Acute (6) S/P AKA (above knee amputation) bilateral Code(s): Z89.611 - ACQUIRED ABSENCE OF RIGHT LEG ABOVE KNEE; Z89.612 - ACQUIRED ABSENCE OF LEFT LEG ABOVE KNEE Status: Chronic - Plan Plan: Dehydration - presumed 2/2 viral gastroenteritis/ poor PO intake/ hyperglycemia - associated hypotension, WILLIS - s/p 2L NS, LR 120ml/hr - urine output improved Bradycardia - with hypotension/apneic episodes - unlikely sepsis, LA, procal neg, no source, WBC downtrending. no abx indicated - OLI vs pharmacologic vs cardiac - UDS negative, trops/EKG negative, sinus rhythm - consider echocardiogram/cards consult today - consider MRI, AM cortisol WILLIS on CKD3 - Avoid nephrotoxic meds - Cr downtrending, see above plan - Continue to monitor daily CMP Atypical Chest Pain - troponins at baseline/down-trending, EKG no ST segment changes, no further CP - TSH, Mg, Phos wnl - EKG/trop for repeated chest pain Hypertensive Urgency, resolved - PRN labetalol for SBP >180 HFrEF - Echo 03/20: 40-45% EF, severe mitral regurg - Daily wts, HH diet, Strict I&Os - careful fluid resuscitation - hold Lasix DMII - continue home glipizide - SSI - Accuchecks ACHS - Hypoglycemic protocol Leukocytosis - Likely 2/2 recent steroid taper - S/p Zosyn in ED - F/u blood cx obtained in ED - Continue to trend with AM CBC Diaphragmatic spasm, resolved - Protonix - Avoid compazine COPD - Duonebs PRN Hx of Afib/Aflutter - Currently NSR - Converted last hospitalization with Dilt and Amio - Xarelto for anticoagulation - hold dilt, cont amio HLD - Continue Crestor CAD s/p CABG x4 - Continue home meds Tobacco Abuse - Encourage cessation - Holding Chantix due to n/v Code Status: FULL DVT ppx: Heparin dispo: careful fluid resuscitation, further work up hypotension/apneic episodes today Addendum - Attending - Attending Attestation Date/Time: 04/02/18 0906 I personally evaluated the patient and discussed the management with Dr. Steele I agree with the History, Examination, Assessment and Plan documented above with any addition or exceptions noted below - Patient without complaints. Does not really recall yesterday's events. No complaints currently. Afebrile VSS. A/P : 1) Hypotension - resolved; most likely secondary to dehydration. 2) Dehydration- resolving. Good urine output. Will decrease IVF. 3) WILLIS ob CKD- minimally improved with hydration; will check urine studies and renal ultrasound. Consider nephrology consult if function not improving. 4) DM- BG improving; continue to monitor. 5) AMS - no further episodes; will check cortisol in AM. Will check echo.
[2018-04-02] MEDS: Amiodarone 200 MG TAB PO SCH (08:59)
[2018-04-02] MEDS: Pregabalin 50 MG CAP PO SCH (09:00)
[2018-04-02] MEDS: Rivaroxaban 15 MG TAB PO SCH (09:05)
--- NOTE | 2018-04-02 11:33 | PRG ---
DATE OF SERVICE: 04/02/2018 SERVICE: Pulmonary Medicine. INTERVAL HISTORY: The patient had multiple episodes in which he went basically obtunded into a very deep sleep. Then with some stimulation, he would wake up and be perfectly appropriate. This happened throughout yesterday afternoon and through the night. That being said, this morning, I find him awake and alert. He is completely cooperative, talking on the phone. He really felt like he got a good night's sleep. He denies any current fevers, chills, nausea, or vomiting. His urine output has been fantastic. PHYSICAL EXAMINATION: VITAL SIGNS: Afebrile, pulse 87, blood pressure 141/72, respirations 26, and saturation 97% on room air. GENERAL: The patient is awake and alert, in no apparent distress. LUNGS: Excellent air entry. There is no prolonged expiratory phase, wheezing, rhonchi, or crackles present. HEART: Normal rate. Regular. ABDOMEN: Soft, nontender, and nondistended. Bowel sounds are positive. MUSCULOSKELETAL: No cyanosis or clubbing. No pitting in the bilateral lower extremities. NEUROLOGIC: Grossly nonfocal. LABORATORY DATA: WBC 14.6, hemoglobin 13.5, platelets 208,000. Creatinine downtrending to 3.54, BUN 56. Basic metabolic profile is otherwise stable/unremarkable. Blood cultures x2, urine culture, and influenza A and B are unremarkable. ASSESSMENT: 1. Dehydration, severe. 2. Gastroenteritis, resolving. 3. Acute kidney injury on chronic kidney disease 4, improving. 4. Bradyarrhythmia, resolved with rate control medications held. 5. Obstructive sleep apnea, witnessed at bedside. DISCUSSION AND PLAN: The patient is stable for transition out of the ICU back to the medical unit. Likelihood that we are dealing with PE is quite low given that he has never been tachycardic or hypoxemic associated with any of these events. He would benefit from polysomnogram in the outpatient setting. Job ID: [id number] [facility]
[2018-04-02] MEDS: HumaLOG 300 UNITS/3 ML VIAL SC PRN (12:18)
[2018-04-02 13:29] LABS: Creatinine, Urine 59.07 mg/dL (63-166)
--- NOTE | 2018-04-02 14:44 | PQF ---
DATE: 04-02-18 ATTN: DR. TEQUILA ROSS Please exercise your independent, professional judgment in responding to the clarification form. Clinical indicators are provided on the bottom of this form for your review Please check appropriate box(s): [ x] HYPONATREMIA [ ] Insignificant Lab Values [ ] Other diagnosis [ ] Unable to determine In addition, please specify: Present on Admission (POA): [x] Yes [ ] No [ ] Unable to determine For continuity of documentation, please document condition throughout progress notes and discharge summary. Thank You. CLINICAL INDICATORS - SIGNS / SYMPTOMS/ LABS are present in the medical record: Lab Results: SODIUM: 03-31-18: 125 04-01-18: 125, 129, 133 04-02-18: 133 RISK FACTORS: ER: HE HAS BEEN VOMITING FOR A FEW DAYS AND "CANNOT KEEP ANYTHING DOWN", HX DM 2 TREATMENT: ER: SODIUM CHLORIDE 0.9% IVF X2L SERIES OF LABS (This form is maintained as a part of the permanent medical record) 2014 [employer]. All Rights Reserved [email or web address] Office: [phone] SHARATH
--- NOTE | 2018-04-02 15:17 | ULT ---
BILATERAL RENAL ULTRASOUND COMPLETE: History: Elevated creatinine. Comparison: Abdomen and pelvic CT scan without IV contrast, 03-31-18. FINDINGS: Right kidney measures 10.5 x 4.8 x 4.9 cm. Left kidney measures 11.2 x 5.8 x 5.2 cm. Weinberg catheter within an empty bladder. No renal hydronephrosis or perinephric process. There are sev eral probable calcific foci within the right and left kidneys which probably are probably renal vascu lar calcifications given numerus renal vascular calcifications on the prior CT. IMPRESSION: No renal hydronephrosis. Weinberg catheter within an empty bladder. Small calcific foci in both kidneys, favored to be renal vascular calcifications. POS: ELPIDIO
[2018-04-02] MEDS: Amitriptyline HCl 25 MG TAB PO SCH (21:16)
[2018-04-02] MEDS: Rosuvastatin 20 MG TAB PO SCH (21:16)
--- NOTE | 2018-04-02 21:32 | EKG ---
Test Reason : STAT Blood Pressure : / mmHG Vent. Rate : 054 BPM Atrial Rate : 054 BPM P-R Int : 140 ms QRS Dur : 076 ms QT Int : 514 ms P-R-T Axes : 000 042 156 degrees QTc Int : 487 ms Sinus bradycardia Abnormal ECG When compared with ECG of 31-MAR-2018 17:19, (Unconfirmed) Vent. rate has decreased BY 50 BPM T wave amplitude has decreased in Anterior leads Confirmed by DAKOTAH AGUILERA, SAnival (4) on 04/02/2018 9:31:31 PM Referred By: ROSE Confirmed By:DR. Candice CLAIRE MD
--- NOTE | 2018-04-02 21:32 | EKG ---
Test Reason : Blood Pressure : / mmHG Vent. Rate : 080 BPM Atrial Rate : 080 BPM P-R Int : 182 ms QRS Dur : 094 ms QT Int : 418 ms P-R-T Axes : 071 055 115 degrees QTc Int : 482 ms Normal sinus rhythm Nonspecific ST and T wave abnormality Prolonged QT Abnormal ECG When compared with ECG of 01-APR-2018 15:08, (Unconfirmed) Vent. rate has increased BY [address] no longer elevated in Anterior leads Nonspecific T wave abnormality now evident in Anterior leads Confirmed by DAKOTAH AGUILERA, SAnival (4) on 04/02/2018 9:32:08 PM Referred By: Confirmed By:DR. Candice CLAIRE MD
--- NOTE | 2018-04-03 06:32 | PDOC.FM ---
- Subjective Subjective: Mr. Calderon is resting comfortably in bed, ready to enjoy his breakfast. he denies fever or shortness of breath, saturating well on room air. crackles were auscultated overnight, fluids were DCd. No acute events overnight. - Objective Vital Signs & Weight: Vital Signs (12 hours) Temp Pulse Resp BP Pulse Ox 04/03/18 03:18 98.2 F 76 19 120/57 L 96 04/02/18 20:00 97.9 F 92 18 142/74 H 94 L Weight Weight 68.855 kg Most Recent Monitor Data Heart Rate from ECG 88 NIBP 111/78 NIBP BP-Mean 85 Respiration from ECG 24 SpO2 97 I&O: 04/01/18 04/02/18 04/03/18 06:59 06:59 06:59 Intake Total 480 4063.9 4683 Output Total 0 2585 2950 Balance 480 1478.9 1733 Result Diagrams: 04/04/18 04:25 04/04/18 04:25 Phys Exam - Physical Examination Constitutional: NAD HEENT: moist MMs Neck: no JVD ronchi auscultated similar to admission Cardiovascular: RRR, no significant murmur Gastrointestinal: soft, non-tender Musculoskeletal: pulses present Neurological: non-focal Psychiatric: normal affect Skin: no rash, normal turgor Dx/Plan (1) Acute on chronic diastolic (congestive) heart failure Code(s): I50.33 - ACUTE ON CHRONIC DIASTOLIC (CONGESTIVE) HEART FAILURE Status : Acute (2) Acute on chronic kidney failure Code(s): N17.9 - ACUTE KIDNEY FAILURE, UNSPECIFIED; N18.9 - CHRONIC KIDNEY DISEASE, UNSPECIFIED Status: Acute Qualifiers: (3) CAD (coronary artery disease) Code(s): I25.10 - ATHSCL HEART DISEASE OF [place] CORONARY ARTERY W/O ANG PCTRS Status: Acute (4) DM2 (diabetes mellitus, type 2) Status: Acute (5) HTN (hypertension) Code(s): I10 - ESSENTIAL (PRIMARY) HYPERTENSION Status: Acute (6) S/P AKA (above knee amputation) bilateral Code(s): Z89.611 - ACQUIRED ABSENCE OF RIGHT LEG ABOVE KNEE; Z89.612 - ACQUIRED ABSENCE OF LEFT LEG ABOVE KNEE Status: Chronic - Plan Plan: Dehydration - presumed 2/2 viral gastroenteritis/ poor PO intake/ hyperglycemia - associated hypotension, WILLIS - s/p 2L NS, LR 120ml/hr, +3L fluid balance in 48hrs, will restart fluids at a slower rate - urine output improved Bradycardia - with hypotension/apneic episodes - unlikely sepsis, LA, procal neg, no source, WBC downtrending. no abx indicated - OLI vs pharmacologic vs cardiac - UDS negative, trops/EKG negative, sinus rhythm - Echocardiogram pending, AM cortisol - CPAP to be placed at night WILLIS on CKD3 - Avoid nephrotoxic meds - Cr downtrending, see above plan - Continue to monitor daily CMP Atypical Chest Pain - troponins at baseline/down-trending, EKG no ST segment changes, no further CP - TSH, Mg, Phos wnl - EKG/trop for repeated chest pain Hypertensive Urgency, resolved - PRN labetalol for SBP >180 HFrEF - Echo 03/20: 40-45% EF, severe mitral regurg - Daily wts, HH diet, Strict I&Os - careful fluid resuscitation - hold Lasix DMII - continue home glipizide - SSI - Accuchecks ACHS - Hypoglycemic protocol Leukocytosis - Likely 2/2 recent steroid taper - S/p Zosyn in ED - F/u blood cx obtained in ED - Continue to trend with AM CBC Diaphragmatic spasm, resolved - Protonix - Avoid compazine COPD - Duonebs PRN Hx of Afib/Aflutter - Currently NSR - Converted last hospitalization with Dilt and Amio - Xarelto for anticoagulation - hold dilt, cont amio HLD - Continue Crestor CAD s/p CABG x4 - Continue home meds Tobacco Abuse - Encourage cessation - Holding Chantix due to n/v Code Status: FULL DVT ppx: Heparin dispo: adequately fluid resuscitated, continue apnea work up, DC planning Addendum - Attending - Attending Attestation Date/Time: 04/04/18 0911 I personally evaluated the patient and discussed the management with Dr. Steele on 04/03/2018 I agree with the History, Examination, Assessment and Plan documented above with any addition or exceptions noted below - Patient without complaints. No further episodes of hypersomnia/hypotension. Afebrile VSS A/P: 1) Hypotension- resolved. 2) WILLIS- improving; continue hydration. 3) DM- stable; continue current meds.
[2018-04-03 06:47] LABS: Anion Gap 13 mmol/L (10-20); BUN (Urea Nitrogen) 47 mg/dL (8.4-25.7); Calc. Creatinine Clearance 25 mL/min (70-130); Calcium 7.6 mg/dL (7.8-10.44); Carbon Dioxide 17 mmol/L (22-29); Chloride 108 mmol/L (98-107); Estimated GFR-MDRD 25; Glucose 94 mg/dL (70-105); Sodium 134 mmol/L (136-145)
[2018-04-03 07:04] LABS: #Eosinphils 0.2 thou/uL (0.0-0.7); #Lymphocytes 2.6 thou/uL (1.20-3.40); #Monocytes 1.5 thou/uL (0.11-0.59); #Neutrophils 9.7 thou/uL (1.40-6.50); %Basophils 0.2 % (0.0-1.0); %Eosinophils 1.6 % (0.0-10.0); %Lymphocytes 18.4 % (21.0-51.0); %Monocytes 10.4 % (0.0-10.0); %Neutrophils 69.3 % (42.0-75.0); Hemoglobin 12.3 g/dL (14.0-18.0); Mean Corpuscular HGB CONC 31.3 g/dL (32.0-36.0); Mean Corpuscular Hemoglobin 27.4 pg (27.0-31.0); Mean Corpuscular Volume 87.7 fL (78.0-98.0); Mean Platelet Volume 10.1 fL (7.4-10.4); Platelet Count 180 thou/uL (130-400); RBC Distribution Width 13.3 % (11.5-14.5); Red Blood Cell (RBC) Count 4.48 mill/uL (4.70-6.10); White Blood Cell (WBC) Count 14.1 thou/uL (4.8-10.8)
[2018-04-03] MEDS: Lactated Ringer's 1,000 ML IV SCH ×2 (10:08→20:51)
[2018-04-03] MEDS: Amiodarone 200 MG TAB PO SCH (10:21)
[2018-04-03] MEDS: Rivaroxaban 15 MG TAB PO SCH (10:21)
--- NOTE | 2018-04-03 10:31 | PRG ---
DATE OF SERVICE: 04/03/2018 SERVICE: Pulmonary Medicine. SUBJECTIVE: The patient is doing fine from respiratory standpoint. He is breathing comfortably. He is on room air. He is tolerating p.o. and he has not had any additional nausea or vomiting since yesterday. Otherwise, he is returning to his usual state of health. He has no complaints. OBJECTIVE: VITAL SIGNS: Afebrile, pulse 89, blood pressure 144/70, respirations 19, and saturation 97% on room air. GENERAL: The patient is awake and alert, in no apparent distress. LUNGS: Excellent air entry with no prolonged expiratory phase, wheezing, rhonchi, or crackles. HEART: Normal rate, regular. ABDOMEN: Soft, nontender, and nondistended. Bowel sounds are positive. MUSCULOSKELETAL: No cyanosis or clubbing. There is no pitting in the bilateral lower extremities. They are both surgically absent above the knees. LABORATORY DATA: WBC 14.1, hemoglobin 12.3, and platelets 180,000. D-dimer 2.62. Creatinine 3.11 and gently downtrending. BUN 47 and downtrending. Anion gap is stable at 13. Bicarbonate has decreased to 17. Sodium and chloride are both trending back into the normal range. Potassium 4.0, cortisol 7.9, which was a random level before 10:00 a.m. Blood cultures x2, urine culture, influenza A and B are unremarkable. DIAGNOSTIC DATA: Ultrasound of the kidneys demonstrates no acute hydronephrosis. Bladder is empty with Weinberg catheter in place. ASSESSMENT: 1. Severe dehydration, resolved. 2. Gastroenteritis, resolved. 3. Acute kidney injury on chronic kidney disease, 4, improving. 4. Obstructive sleep apnea, witnessed at bedside. DISCUSSION AND PLAN: From a purely respiratory perspective, the patient is stable for transition out of the hospital. He will need an outpatient polysomnogram. At this point, he has no further requirements for inpatient Pulmonary or Critical Care opinion, and I will sign off. Please call with additional questions or concerns through time. Job ID: [id number]
[2018-04-03] MEDS: Amitriptyline HCl 25 MG TAB PO SCH (20:51)
[2018-04-03] MEDS: Rosuvastatin 20 MG TAB PO SCH (20:51)
[2018-04-04] MEDS: Lactated Ringer's 1,000 ML IV SCH ×3 (04:43→20:35)
[2018-04-04 04:54] LABS: #Basophils 0.1 thou/uL (0.0-0.2); #Eosinphils 0.3 thou/uL (0.0-0.7); #Lymphocytes 2.2 thou/uL (1.20-3.40); #Monocytes 1.5 thou/uL (0.11-0.59); #Neutrophils 9.7 thou/uL (1.40-6.50); %Basophils 0.5 % (0.0-1.0); %Eosinophils 2.2 % (0.0-10.0); %Monocytes 10.6 % (0.0-10.0); %Neutrophils 70.7 % (42.0-75.0); Hemoglobin 12.3 g/dL (14.0-18.0); Mean Corpuscular HGB CONC 31.9 g/dL (32.0-36.0); Mean Corpuscular Hemoglobin 28.5 pg (27.0-31.0); Mean Corpuscular Volume 89.3 fL (78.0-98.0); Mean Platelet Volume 9.8 fL (7.4-10.4); Platelet Count 171 thou/uL (130-400); RBC Distribution Width 13.3 % (11.5-14.5); Red Blood Cell (RBC) Count 4.33 mill/uL (4.70-6.10); White Blood Cell (WBC) Count 13.6 thou/uL (4.8-10.8)
[2018-04-04 05:16] LABS: Anion Gap 9 mmol/L (10-20); BUN (Urea Nitrogen) 36 mg/dL (8.4-25.7); Calc. Creatinine Clearance 29 mL/min (70-130); Calcium 8.1 mg/dL (7.8-10.44); Carbon Dioxide 21 mmol/L (22-29); Chloride 108 mmol/L (98-107); Estimated GFR-MDRD 31; Glucose 127 mg/dL (70-105); Potassium 4.3 mmol/L (3.5-5.1); Sodium 134 mmol/L (136-145)
--- NOTE | 2018-04-04 06:40 | PDOC.FM ---
- Subjective Subjective: Mr. Calderon is resting comfortably in bed, he denies chest pain or shortness of breath. 13 second run of vtach last night, asymptomatic per nursing. - Objective Vital Signs & Weight: Vital Signs (12 hours) Temp Pulse Resp BP Pulse Ox 04/04/18 04:00 98.2 F 82 14 141/67 H 98 04/03/18 20:50 98.2 F 84 16 146/70 H 98 Weight Weight 66.769 kg Most Recent Monitor Data Heart Rate from ECG 88 NIBP 111/78 NIBP BP-Mean 85 Respiration from ECG 24 SpO2 97 I&O: 04/02/18 04/03/18 04/04/18 06:59 06:59 06:59 Intake Total 4063.9 4683 1680 Output Total 2585 2950 1375 Balance 1478.9 1733 305 Result Diagrams: 04/04/18 04:25 04/04/18 04:25 Phys Exam - Physical Examination Constitutional: NAD HEENT: moist MMs Neck: no JVD Respiratory: clear to auscultation bilateral Cardiovascular: RRR, no significant murmur Gastrointestinal: soft, non-tender Musculoskeletal: no edema Neurological: non-focal, normal sensation Psychiatric: normal affect Skin: no rash Dx/Plan (1) Acute on chronic diastolic (congestive) heart failure Code(s): I50.33 - ACUTE ON CHRONIC DIASTOLIC (CONGESTIVE) HEART FAILURE Status : Acute (2) Acute on chronic kidney failure Code(s): N17.9 - ACUTE KIDNEY FAILURE, UNSPECIFIED; N18.9 - CHRONIC KIDNEY DISEASE, UNSPECIFIED Status: Acute Qualifiers: (3) CAD (coronary artery disease) Code(s): I25.10 - ATHSCL HEART DISEASE OF [place] CORONARY ARTERY W/O ANG PCTRS Status: Acute (4) DM2 (diabetes mellitus, type 2) Status: Acute (5) HTN (hypertension) Code(s): I10 - ESSENTIAL (PRIMARY) HYPERTENSION Status: Acute (6) S/P AKA (above knee amputation) bilateral Code(s): Z89.611 - ACQUIRED ABSENCE OF RIGHT LEG ABOVE KNEE; Z89.612 - ACQUIRED ABSENCE OF LEFT LEG ABOVE KNEE Status: Chronic - Plan Plan: Ventricular tachycardia - 13 second run 04/04 seen on monitor, asymptomatic - no history of this, resume coreg/amio - consult cardiology Dehydration, resolved - presumed 2/2 viral gastroenteritis/ poor PO intake/ hyperglycemia - associated hypotension, WILLIS - s/p 2L NS, LR 120ml/hr,slow fluids/DC and PO hydrate today - urine output improved Bradycardia - with hypotension/apneic episodes - unlikely sepsis, LA, procal neg, no source, WBC downtrending. no abx indicated - OLI vs pharmacologic vs cardiac - UDS negative, trops/EKG negative, sinus rhythm - Echocardiogram pending, AM cortisol wnl - CPAP to be placed at night WILLIS on CKD3 - Avoid nephrotoxic meds - Cr downtrending, see above plan - Continue to monitor daily CMP Atypical Chest Pain - troponins at baseline/down-trending, EKG no ST segment changes, no further CP - TSH, Mg, Phos wnl - EKG/trop for repeated chest pain Hypertensive Urgency, resolved - PRN labetalol for SBP >180 HFrEF - Echo 03/20: 40-45% EF, severe mitral regurg - Daily wts, HH diet, Strict I&Os - careful fluid resuscitation - hold Lasix, continue coreg DMII - continue home glipizide - SSI - Accuchecks ACHS - Hypoglycemic protocol Leukocytosis - Likely 2/2 recent steroid taper - S/p Zosyn in ED - F/u blood cx obtained in ED - Continue to trend with AM CBC Diaphragmatic spasm, resolved - Protonix - Avoid compazine COPD - Duonebs PRN Hx of Afib/Aflutter - Currently NSR - Converted last hospitalization with Dilt and Amio - Xarelto for anticoagulation - cont amio, restart dilt after tolerating coreg HLD - Continue Crestor CAD s/p CABG x4 - Continue home meds Tobacco Abuse - Encourage cessation - Holding Chantix due to n/v Code Status: FULL DVT ppx: Heparin dispo: adequately fluid resuscitated, cardiology consult placed Addendum - Attending - Attending Attestation Date/Time: 04/04/18 1322 I personally evaluated the patient and discussed the management with Dr. Steele I agree with the History, Examination, Assessment and Plan documented above with any addition or exceptions noted below- Patient without complaints. Afebrile VSS. A/P: 1) Severe dehydration- improved. 2) WILLIS with CKD- Cr continuing to improve; continue IVF. 3) V-tachycardia- had 13 sec episode of Vtach last night; consult cardiology. Echo done- report pending. 4) DM- stable.
[2018-04-04] MEDS ORDERED: Carvedilol 3.125 MG TAB PO SCH (08:38)
[2018-04-04] MEDS: Amiodarone 200 MG TAB PO SCH (09:32)
[2018-04-04] MEDS: Rivaroxaban 15 MG TAB PO SCH (09:32)
[2018-04-04] MEDS: Carvedilol 3.125 MG TAB PO SCH ×2 (09:37→17:42)
[2018-04-04] MEDS: HumaLOG 300 UNITS/3 ML VIAL SC PRN (13:36)
[2018-04-04] MEDS: Amitriptyline HCl 25 MG TAB PO SCH (20:35)
[2018-04-04] MEDS: Rosuvastatin 20 MG TAB PO SCH (20:35)
--- NOTE | 2018-04-05 00:07 | CON ---
DATE OF CONSULTATION: HISTORY: Prudencio Calderon is a 62-year-old black male with long-standing history of coronary artery disease and peripheral vascular disease. He has undergone CABG x4 many years ago. In November 2010, the ramus and diagonal grafts were occluded and he underwent stent placement in the ramus. He has had atrial flutter in the past and has undergone flutter ablation. He was recently admitted with pneumonia. Echocardiogram at that time revealed ejection fraction of 40% to 45%. He also had new onset atrial fibrillation. He was placed on amiodarone as well as Xarelto. He came back to the hospital 5 or 6 days after he was discharged from the pneumonia. He complained of nausea, vomiting, and shortness of breath. He denied any chest discomfort. PAST MEDICAL HISTORY: Coronary artery disease, hypertension, hypercholesterolemia, diabetes, chronic kidney disease, peripheral vascular disease, status post bilateral AKA, atrial flutter ablation. OPERATIONS: CABG, aortobifemoral bypass, bilateral AKA, bilateral iliac stent placement, back surgery. ALLERGIES: NONE. MEDICATIONS: 1. Amiodarone 200 mg daily. 2. Amitriptyline 25 at bedtime. 3. Atorvastatin 80 at bedtime. 4. Tessalon 100 mg t.i.d. 5. Carvedilol 3.125 b.i.d. 6. Omnicef 600 daily. 7. Diltiazem 300 daily. 8. Furosemide 40 q.a.m. 9. Glipizide 2.5 mg daily. 10. Nitroglycerin p.r.n. 11. Prednisone 20 mg q.a.m. 12. Lyrica 200 mg b.i.d. 13. Xarelto 15 mg daily. 14. Crestor 20 mg daily. 15. Lamisil 250 mg daily. SOCIAL HISTORY: He continues to smoke. He also uses cocaine and marijuana. Urine drug screen was positive for marijuana when he was admitted. FAMILY HISTORY: Positive for coronary artery disease. REVIEW OF SYSTEMS: Otherwise unremarkable. PHYSICAL EXAMINATION: VITAL SIGNS: Blood pressure 158/73, pulse of 83. HEENT: PERRL. NECK: Supple. CHEST: Fairly clear. CARDIOVASCULAR EXAMINATION: S1 and S2 normal without any S3, S4, or murmurs. ABDOMEN: Normal bowel sounds without tenderness. EXTREMITIES: Revealed bilateral AKA with no edema. NEUROLOGICAL: Grossly intact. LABORATORY DATA: EKG reveals sinus tachycardia with rate of 104 beats per minute, nonspecific ST-segment changes. Hemoglobin 12.3, hematocrit 38.6, white count 13,600, platelets 171,000. Sodium 134, potassium 4.3, chloride 108, carbon dioxide 21, BUN 36, creatinine 2.55. When he was admitted, his creatinine was 3.90. IMPRESSION: 1. Nausea, vomiting, and dehydration, which has resolved. 2. Nonsustained ventricular tachycardia. 3. Atrial fibrillation, converted to sinus rhythm during the last admission. 4. History of atrial flutter ablation in December 2009. 5. Status post coronary artery bypass graft x4 with diagonal and ramus grafts occluded were occluded on his last catheterization from November 2010. Also at that time, a stent was placed into the [place] ramus. 6. Hypertension. 7. Hypercholesterolemia. 8. Smoker. 9. Cocaine abuse. 10. Bilateral above knee amputation. 11. Chronic kidney disease. 12. Hepatitis C. PLAN: The borderline troponin I is due to demand ischemia and his renal insufficiency. He has chronically elevated troponin I's. With his current blood pressure and nonsustained ventricular tachycardia, carvedilol dose will be increased. We will follow the patient with you. Job ID: [id number] MTDD
[2018-04-05 05:01] LABS: #Eosinphils 0.2 thou/uL (0.0-0.7); #Lymphocytes 1.6 thou/uL (1.20-3.40); #Monocytes 1.2 thou/uL (0.11-0.59); %Basophils 0.1 % (0.0-1.0); %Eosinophils 2.4 % (0.0-10.0); %Lymphocytes 16.2 % (21.0-51.0); %Monocytes 11.7 % (0.0-10.0); %Neutrophils 69.6 % (42.0-75.0); Hemoglobin 11.8 g/dL (14.0-18.0); Mean Corpuscular HGB CONC 32.5 g/dL (32.0-36.0); Mean Platelet Volume 10.2 fL (7.4-10.4); Platelet Count 150 thou/uL (130-400); RBC Distribution Width 13.1 % (11.5-14.5); Red Blood Cell (RBC) Count 4.07 mill/uL (4.70-6.10); White Blood Cell (WBC) Count 10.1 thou/uL (4.8-10.8)
[2018-04-05 05:25] LABS: Anion Gap 12 mmol/L (10-20); BUN (Urea Nitrogen) 26 mg/dL (8.4-25.7); Calc. Creatinine Clearance 34 mL/min (70-130); Calcium 7.7 mg/dL (7.8-10.44); Carbon Dioxide 16 mmol/L (22-29); Chloride 107 mmol/L (98-107); Estimated GFR-MDRD 38; Glucose 132 mg/dL (70-105); Potassium 4.2 mmol/L (3.5-5.1); Sodium 131 mmol/L (136-145)
--- NOTE | 2018-04-05 06:24 | PDOC.FM ---
- Subjective Subjective: Mr. Calderon is resting comfortably in bed, he reports feeling well overnight. denies CP or shortness of breath. no acute events - Objective Vital Signs & Weight: Vital Signs (12 hours) Temp Pulse Resp BP Pulse Ox 04/05/18 04:00 98.6 F 94 16 155/72 H 95 04/04/18 20:35 99.3 F 89 16 133/61 96 Weight Weight 66.996 kg Most Recent Monitor Data Heart Rate from ECG 88 NIBP 111/78 NIBP BP-Mean 85 Respiration from ECG 24 SpO2 97 I&O: 04/03/18 04/04/18 04/05/18 06:59 06:59 06:59 Intake Total 4683 1680 1325 Output Total 2950 1375 1020 Balance 1733 305 305 Result Diagrams: 04/05/18 04:23 04/05/18 04:23 Phys Exam - Physical Examination Constitutional: NAD HEENT: moist MMs Neck: no JVD Respiratory: clear to auscultation bilateral Cardiovascular: RRR, no significant murmur Gastrointestinal: soft, no distention Musculoskeletal: no edema, pulses present Neurological: non-focal Psychiatric: normal affect Skin: no rash Dx/Plan (1) Acute on chronic diastolic (congestive) heart failure Code(s): I50.33 - ACUTE ON CHRONIC DIASTOLIC (CONGESTIVE) HEART FAILURE Status : Acute (2) Acute on chronic kidney failure Code(s): N17.9 - ACUTE KIDNEY FAILURE, UNSPECIFIED; N18.9 - CHRONIC KIDNEY DISEASE, UNSPECIFIED Status: Acute Qualifiers: (3) CAD (coronary artery disease) Code(s): I25.10 - ATHSCL HEART DISEASE OF [place] CORONARY ARTERY W/O ANG PCTRS Status: Acute (4) DM2 (diabetes mellitus, type 2) Status: Acute (5) HTN (hypertension) Code(s): I10 - ESSENTIAL (PRIMARY) HYPERTENSION Status: Acute (6) S/P AKA (above knee amputation) bilateral Code(s): Z89.611 - ACQUIRED ABSENCE OF RIGHT LEG ABOVE KNEE; Z89.612 - ACQUIRED ABSENCE OF LEFT LEG ABOVE KNEE Status: Chronic - Plan Plan: Non-sustained ventricular tachycardia - 13 second run 04/04 seen on monitor, asymptomatic - no history of this, resume coreg/amio - consult cardiology appreciate recs - coreg increased - no acute events overnight Dehydration, resolved - presumed 2/2 viral gastroenteritis/ poor PO intake/ hyperglycemia - associated hypotension, WILLIS - s/p 2L NS, DC IVF, PO hydrate - urine output improved Bradycardia - with hypotension/apneic episodes, no additional episodes - unlikely sepsis, LA, procal neg, no source, WBC downtrending. no abx indicated - Most likely OLI, unlikely pharmacologic vs cardiac - UDS negative, trops/EKG negative, sinus rhythm - Echocardiogram similar to previous, AM cortisol wnl - CPAP to be placed at night - polysomnography outpatient WILLIS on CKD3 - Avoid nephrotoxic meds - Cr downtrending, see above plan - Continue to monitor daily CMP Atypical Chest Pain - troponins at baseline/down-trending, EKG no ST segment changes, no further CP - TSH, Mg, Phos wnl - EKG/trop for repeated chest pain Hypertensive Urgency, resolved - PRN labetalol for SBP >180 HFrEF - Echo 03/20: 40-45% EF, severe mitral regurg - repeat Echo similar - Daily wts, HH diet, Strict I&Os - hold Lasix, continue coreg DMII - continue home glipizide - SSI - Accuchecks ACHS - Hypoglycemic protocol Leukocytosis - Likely 2/2 recent steroid taper - S/p Zosyn in ED - F/u blood cx obtained in ED - Continue to trend with AM CBC Diaphragmatic spasm, resolved - Protonix - Avoid compazine COPD - Duonebs PRN Hx of Afib/Aflutter - Currently NSR - Converted last hospitalization with Dilt and Amio - Xarelto for anticoagulation - cont amio, restart dilt HLD - Continue Crestor CAD s/p CABG x4 - Continue home meds Tobacco Abuse - Encourage cessation - Holding Chantix due to n/v Code Status: FULL DVT ppx: Heparin dispo: adequately fluid resuscitated, coreg increase, monitor. possible DC today or tomorrow. Addendum - Attending - Attending Attestation Date/Time: 04/05/181807 I personally evaluated the patient and discussed the management with Dr. Steele I agree with the History, Examination, Assessment and Plan documented above with any addition or exceptions noted below- Patient with no complaints. No furthe episodes of Vtach or hypotension. Afebrile VSS. A/P: 1) V-tachycardia- appreciate cardiology assistance. Medications adjusted. continue to monitor. 2) Hypotension resolved. 3) WILLIS- improving; heplock IV.
[2018-04-05] MEDS: Carvedilol 6.25 MG TAB PO SCH ×2 (08:58→18:12)
[2018-04-05] MEDS: Amiodarone 200 MG TAB PO SCH (08:58)
[2018-04-05] MEDS: Diltiazem HCl CD 300 mg Capsule PO SCH (08:59)
[2018-04-05] MEDS: Rivaroxaban 15 MG TAB PO SCH (08:59)
[2018-04-05] MEDS: Rosuvastatin 20 MG TAB PO SCH (21:07)
[2018-04-05] MEDS: HumaLOG 300 UNITS/3 ML VIAL SC PRN (21:07)
[2018-04-05] MEDS: Amitriptyline HCl 25 MG TAB PO SCH (21:07)
[2018-04-06 06:06] LABS: Anion Gap 11 mmol/L (10-20); BUN (Urea Nitrogen) 25 mg/dL (8.4-25.7); Calc. Creatinine Clearance 34 mL/min (70-130); Calcium 7.8 mg/dL (7.8-10.44); Carbon Dioxide 18 mmol/L (22-29); Chloride 108 mmol/L (98-107); Estimated GFR-MDRD 37; Glucose 206 mg/dL (70-105); Potassium 4.3 mmol/L (3.5-5.1); Sodium 133 mmol/L (136-145)
[2018-04-06 06:07] LABS: #Eosinphils 0.3 thou/uL (0.0-0.7); #Lymphocytes 1.3 thou/uL (1.20-3.40); #Monocytes 1.2 thou/uL (0.11-0.59); #Neutrophils 6.7 thou/uL (1.40-6.50); %Basophils 0.2 % (0.0-1.0); %Eosinophils 2.9 % (0.0-10.0); %Lymphocytes 13.5 % (21.0-51.0); %Monocytes 12.7 % (0.0-10.0); %Neutrophils 70.7 % (42.0-75.0); Hemoglobin 11.6 g/dL (14.0-18.0); Mean Corpuscular HGB CONC 32.1 g/dL (32.0-36.0); Mean Corpuscular Hemoglobin 28.7 pg (27.0-31.0); Mean Corpuscular Volume 89.4 fL (78.0-98.0); Mean Platelet Volume 9.9 fL (7.4-10.4); Platelet Count 149 thou/uL (130-400); RBC Distribution Width 13.3 % (11.5-14.5); Red Blood Cell (RBC) Count 4.04 mill/uL (4.70-6.10); White Blood Cell (WBC) Count 9.5 thou/uL (4.8-10.8)
--- NOTE | 2018-04-06 06:36 | PDOC.FM ---
- Subjective Subjective: Mr. Calderon is resting comfortably in bed, he slept well and denies chest pain/ SOB - Objective Vital Signs & Weight: Vital Signs (12 hours) Temp Pulse Resp BP Pulse Ox 04/06/18 03:20 98.6 F 74 18 137/65 97 04/05/18 20:00 98.8 F 76 16 133/64 98 Weight Weight 66.996 kg Most Recent Monitor Data Heart Rate from ECG 88 NIBP 111/78 NIBP BP-Mean 85 Respiration from ECG 24 SpO2 97 I&O: 04/04/18 04/05/18 04/06/18 06:59 06:59 06:59 Intake Total 1680 1325 1640 Output Total 1375 1020 2700 Balance 305 305 -1060 Result Diagrams: 04/06/18 04:46 04/06/18 04:46 Phys Exam - Physical Examination Constitutional: NAD HEENT: moist MMs Neck: no JVD Gastrointestinal: no distention Musculoskeletal: no edema, pulses present Neurological: non-focal Psychiatric: normal affect Skin: no rash Dx/Plan (1) Acute on chronic diastolic (congestive) heart failure Code(s): I50.33 - ACUTE ON CHRONIC DIASTOLIC (CONGESTIVE) HEART FAILURE Status : Acute (2) Acute on chronic kidney failure Code(s): N17.9 - ACUTE KIDNEY FAILURE, UNSPECIFIED; N18.9 - CHRONIC KIDNEY DISEASE, UNSPECIFIED Status: Acute Qualifiers: (3) CAD (coronary artery disease) Code(s): I25.10 - ATHSCL HEART DISEASE OF [place] CORONARY ARTERY W/O ANG PCTRS Status: Acute (4) DM2 (diabetes mellitus, type 2) Status: Acute (5) HTN (hypertension) Code(s): I10 - ESSENTIAL (PRIMARY) HYPERTENSION Status: Acute (6) S/P AKA (above knee amputation) bilateral Code(s): Z89.611 - ACQUIRED ABSENCE OF RIGHT LEG ABOVE KNEE; Z89.612 - ACQUIRED ABSENCE OF LEFT LEG ABOVE KNEE Status: Chronic - Plan Plan: Non-sustained ventricular tachycardia - 13 second run 04/04 seen on monitor, asymptomatic - no history of this, resume coreg/amio - consult cardiology appreciate recs - coreg increased - no acute events overnight Dehydration, resolved - presumed 2/2 viral gastroenteritis/ poor PO intake/ hyperglycemia - associated hypotension, WILLIS - s/p 2L NS, DC IVF, PO hydrate - urine output improved Bradycardia - with hypotension/apneic episodes, no additional episodes - unlikely sepsis, LA, procal neg, no source, WBC downtrending. no abx indicated - Most likely OLI, unlikely pharmacologic vs cardiac - UDS negative, trops/EKG negative, sinus rhythm - Echocardiogram similar to previous, AM cortisol wnl - CPAP to be placed at night - polysomnography outpatient WILLIS on CKD3 - Avoid nephrotoxic meds - Cr downtrending, see above plan - Continue to monitor daily CMP Atypical Chest Pain - troponins at baseline/down-trending, EKG no ST segment changes, no further CP - TSH, Mg, Phos wnl - EKG/trop for repeated chest pain Hypertensive Urgency, resolved - PRN labetalol for SBP >180 HFrEF - Echo 03/20: 40-45% EF, severe mitral regurg - repeat Echo similar - Daily wts, HH diet, Strict I&Os - hold Lasix, continue coreg DMII - continue home glipizide - SSI - Accuchecks ACHS - Hypoglycemic protocol Leukocytosis - Likely 2/2 recent steroid taper - S/p Zosyn in ED - F/u blood cx obtained in ED - Continue to trend with AM CBC Diaphragmatic spasm, resolved - Protonix - Avoid compazine COPD - Duonebs PRN Hx of Afib/Aflutter - Currently NSR - Converted last hospitalization with Dilt and Amio - Xarelto for anticoagulation - cont amio, restart dilt HLD - Continue Crestor CAD s/p CABG x4 - Continue home meds Tobacco Abuse - Encourage cessation - Holding Chantix due to n/v Code Status: FULL DVT ppx: Heparin dispo: adequately fluid resuscitated, VSS, DC today
[2018-04-06] MEDS: Amiodarone 200 MG TAB PO SCH (08:57)
[2018-04-06] MEDS: Carvedilol 6.25 MG TAB PO SCH (08:57)
[2018-04-06] MEDS: Diltiazem HCl CD 300 mg Capsule PO SCH (08:58)
[2018-04-06] MEDS: Rivaroxaban 15 MG TAB PO SCH (08:58)
[2018-04-06 11:27] VITALS: BP 139/70; TEMP 98.5
[2018-04-06] MEDS: HumaLOG 300 UNITS/3 ML VIAL SC PRN (12:15)
--- NOTE | 2018-04-08 10:08 | PRG ---
DATE OF SERVICE: 04/06/2018 ADDENDUM: Please see note from Dr. Steele, for which I agree. The patient was seen, evaluated, and examined with the residents by bedside. This is a gentleman, who has been in the hospital now for about a week, initially coming in with some shortness of breath and chest discomfort, nausea, vomiting, end up needing CPAP for a couple days and had a couple runs of ventricular tachycardia and said numerous other issues including hyponatremia, elevated creatinine, hypotension, and hyponatremia, but everything seemed to improve and he is in the baseline now for the last at least 24 hours and so can be discharged. He needs CPAP at night, and that is obviously going to be a struggle because of insurance reasons getting official sleep study as an outpatient, but we will try to make sure we get that set up quickly as he should be able to be discharged on home medicines otherwise. Job ID: [id number]
--- NOTE | 2018-04-08 14:06 | DIS ---
DATE OF ADMISSION: 03/31/2018 DATE OF DISCHARGE: 04/06/2018 ADMITTING ATTENDING: Dr. Blair Castellanos. DISCHARGE ATTENDING: Dr. Johnnie Kumar. CONSULTS: 1. Cardiology, Dr. Андрей Morales. 2. Pulmonology, Dr. Tay Yeung. IMAGING: Abdomen/pelvis CT significant for no CT evidence of urinary tract obstruction or calcification, constipation, or arteriosclerosis. Renal ultrasound significant for no renal hydronephrosis. Weinberg catheter within an empty bladder. Small calcific foci in both kidneys favored to be renovascular calcifications. Echocardiogram significant for mild concentric left ventricular hypertrophy. Ejection fraction visually estimated at 45% to 50%, severe mitral regurg, similar to previous echocardiogram in 2017. PRIMARY DIAGNOSIS: Dehydration, resolved. SECONDARY DIAGNOSES: 1. Bradycardia, nonsustained ventricular tachycardia. 2. Acute kidney injury on chronic kidney disease. 3. Atypical chest pain. 4. Hypertensive urgency. 5. Heart failure with reduced ejection fraction. 6. Diabetes mellitus type 2. 7. Leukocytosis. 8. Diaphragmatic spasm. 9. Chronic obstructive pulmonary disease. DISCHARGE MEDICATIONS: 1. Glipizide 2.5 mg p.o. daily. 2. Lyrica 200 mg p.o. b.i.d. 3. Lasix 40 mg p.o. daily. 4. Amitriptyline 25 mg p.o. at bedtime. 5. Cardizem 300 mg p.o. daily. 6. Nitroglycerin 0.4 mg sublingual. 7. Xarelto 15 mg p.o. daily. 8. Crestor 20 mg p.o. at bedtime. 9. Lamisil 250 mg p.o. daily. 10. Chantix 1 mg p.o. b.i.d. 11. Prednisone 20 mg p.o. q.a.m. with meals. 12. Tessalon 100 mg p.o. t.i.d. 13. Amiodarone 200 mg p.o. daily. 14. Coreg 6.25 mg p.o. b.i.d. with meals. Discontinued medications, Coreg 3.125 mg p.o. b.i.d. with meals. HISTORY OF PRESENT ILLNESS AND HOSPITAL COURSE: Mr. Flannery is a 62-year-old male who presents to the emergency department with numerous complaints yesterday with shortness of breath and chest pain; pain associated with diaphoresis that did not really radiate. He also reports that he has had nausea and vomiting for 2 days and had been unable to keep anything down. The patient was admitted at that time for chest pain, rule out possible CHF exacerbation. After further inspection of the laboratory reports and laboratory findings, it was determined that the patient was volume down; and therefore, gentle IV fluid rehydration was begun. The patient's kidney function began to improve, and the patient was treated for a COPD exacerbation as well with antibiotics and steroids. During the hospitalization, the patient had [employer] called for apneic episodes of bradycardia and hypertension and transferred to the ICU, placed on BiPAP. The patient recovered quickly from this. Pulmonology was consulted and agreed that it is most likely a sleep apnea. The patient has been placed on CPAP at night. The patient continued to improve, kidney function improved, tolerated CPAP well at night. Towards hospital day #5, overnight, the patient had a run of 13 seconds of nonsustained ventricular tachycardia. Cardiology was consulted the next day and increased carvedilol to 6.25. Other home medications were added back and hypertension resolved, and Vital signs remained stable. The patient was eating and drinking well without having any abdominal pain, nausea, vomiting, or diarrhea. The patient deemed stable for home. DISCHARGE INSTRUCTIONS: 1. Diet: Heart healthy, low-sodium. 2. Activity: As tolerated. 3. Followup: Follow up with Dr. Keily Carrington, [facility] with plan to be set up for polysomnography at Sleep Study lab for CPAP titration and treatment. Job ID: [id number] [email or web address]
--- NOTE | 2018-04-09 14:05 | PQF ---
LASHAERIN RUSSELL [id number] CLINICAL DOCUMENTATION CLARIFICATION FORM: POST DISCHARGE DATE: 04/09/2018 ATTN: Dr. Kumar Please exercise your independent, professional judgment in responding to the clarification form. Clinical indicators are provided on the bottom of this form for your review Please check appropriate box(s) to clarify if the following diagnosis has been ruled in or ruled out: Acute on chronic diastolic congestive heart failure [ ] Ruled in diagnosis [ ] Continue to treat [ ] Resolved [ ] Ruled out diagnosis [ ] Cannot rule out diagnosis [ ] Other diagnosis (please specify) [ ] Unable to determine In addition, please specify: Present on Admission (POA): [ ] Yes [ ] No [ ] Unable to determine For continuity of documentation, please document condition throughout progress notes and discharge summary. Thank You. CLINICAL INDICATORS - SIGNS / SYMPTOMS / LABS Per H&P: Shortness of breath. Chest pain. Acute on chronic diastolic congestive heart failure. Continue home meds. Per labs: BNP 658.2 on admission. Per Hospitalist Progress Notes: Acute on chronic diastolic congestive heart failure. Per Discharge Summary: Primary diagnosis: Dehydration. Secondary: Heart failure with reduced ejection fraction. The patient was admitted for chest pain , rule out possible CHF exacerbation. After further inspection of the lab reports/findings, it was determined that the patient was volume down and therefore, gentle IV fluid rehydration was begun. . RISK FACTORS Home Lasix 40 mg po daily. Smoker. Hypertension. Chronic kidney disease stage 3. Ejection fraction : 40-45% (03/20 echocardiogram) TREATMENTS Per Hospitalist Progress Notes: Hold Lasix. Continue Coreg. Daily weights. Heart Healthy diet. Strict I&O's. Careful fluid resuscitation. (This form is maintained as a part of the permanent medical record) 2014 [email or web address]. All Rights Reserved Ani [email or web address] [phone] MTDD
--- NOTE | 2018-04-13 19:50 | EKG ---
Test Reason : Blood Pressure : / mmHG Vent. Rate : 104 BPM Atrial Rate : 104 BPM P-R Int : 176 ms QRS Dur : 088 ms QT Int : 366 ms P-R-T Axes : 061 030 084 degrees QTc Int : 481 ms Sinus tachycardia Left atrial enlargement Nonspecific ST abnormality Abnormal ECG Confirmed by LUIS ALBERTO ALONSO DO ([id number]), assignment desk editor DANIELLE ARVIZU ([id number]) on 04/13/2018 7:50:32 PM Referred By: Confirmed By:LUIS ALBERTO ALONSO DO
== END 2018-04-06 13:00 | disposition home or self-care (01) | DRG 291 ==
LOC: ERS 17:12 → 2NO 21:40 → CCU 04-01 15:31 → 2NO 04-02 15:45
PROVIDERS: ADMIT Family Medicine; ATTEND Family Medicine
PROC: 5A09357 Assistance with Respiratory Ventilation, Less than 24 Consecutive Hours, Continuous Positive Airway Pressure (ICD-10-PCS; principal; 2018-04-01)
DX: I13.0 Hypertensive heart and chronic kidney disease with heart failure and stage 1 through stage 4 chronic kidney disease, or unspecified chronic kidney disease (principal); I50.33 Acute on chronic diastolic (congestive) heart failure; N17.9 Acute kidney failure, unspecified; I24.8 Other forms of acute ischemic heart disease; I47.2 Ventricular tachycardia; E87.1 Hypo-osmolality and hyponatremia; J44.1 Chronic obstructive pulmonary disease with (acute) exacerbation; E86.0 Dehydration; E11.22 Type 2 diabetes mellitus with diabetic chronic kidney disease; N18.3 Chronic kidney disease, stage 3 (moderate); E78.5 Hyperlipidemia, unspecified; G47.33 Obstructive sleep apnea (adult) (pediatric); K52.9 Noninfective gastroenteritis and colitis, unspecified; F17.210 Nicotine dependence, cigarettes, uncomplicated; I16.0 Hypertensive urgency; I25.10 Atherosclerotic heart disease of native coronary artery without angina pectoris; R06.6 Hiccough; F14.10 Cocaine abuse, uncomplicated; Z79.01 Long term (current) use of anticoagulants; Z79.84 Long term (current) use of oral hypoglycemic drugs; Z79.52 Long term (current) use of systemic steroids; Z79.899 Other long term (current) drug therapy; Z89.612 Acquired absence of left leg above knee; Z89.611 Acquired absence of right leg above knee; Z95.1 Presence of aortocoronary bypass graft
CPT/HCPCS: 36415; 36416; 51701; 71045; 74176; 76770; 80048; 80053; 80306; 81003; 81015; 82010; 82140; 82533; 82553; 82570; 82805; 83605; 83690; 83735; 83880; 84100; 84145; 84156; 84443; 84484; 84540; 85025; 85379; 87040; 87086; 87804; 93005; 93010; 93306; 94660; 96361; 96374; 96375; J1644; J2405; J2543; Q0169

== ENCOUNTER 2018-04-18 20:41 | Observation (INO) | payer OTHER ==
--- NOTE | 2018-04-18 21:22 | RAD ---
PORTABLE CHEST: HISTORY: Dyspnea. COMPARISON: 03/31/2018 FINDINGS: Heart size is enlarged. There are postop sternotomy changes. Lungs are clear of infiltrates. No si gns of failure. IMPRESSION: Cardiomegaly. POS: [facility]
[2018-04-18 21:26] LABS: #Basophils 0.1 thou/uL (0.0-0.2); #Eosinphils 0.3 thou/uL (0.0-0.7); #Lymphocytes 2.6 thou/uL (1.20-3.40); #Monocytes 0.8 thou/uL (0.11-0.59); #Neutrophils 4.6 thou/uL (1.40-6.50); %Basophils 0.8 % (0.0-1.0); %Lymphocytes 30.4 % (21.0-51.0); %Monocytes 9.8 % (0.0-10.0); Hemoglobin 9.1 g/dL (14.0-18.0); Mean Corpuscular HGB CONC 31.6 g/dL (32.0-36.0); Mean Corpuscular Hemoglobin 28.9 pg (27.0-31.0); Mean Corpuscular Volume 91.5 fL (78.0-98.0); Mean Platelet Volume 8.9 fL (7.4-10.4); Platelet Count 217 thou/uL (130-400); RBC Distribution Width 14.2 % (11.5-14.5); Red Blood Cell (RBC) Count 3.16 mill/uL (4.70-6.10); White Blood Cell (WBC) Count 8.5 thou/uL (4.8-10.8)
[2018-04-18 21:30] LABS: Base Excess-Venous -1.1 mmol/L (-2.0 to 3.0); Bicarbonate (HCO3v) 24.4 mmol/L (22.0-28.0); CO2 Tension (PvCO2) 42.7 mmHg (40.0-50.0); Calcium, Ionized 1.07 mmol/L (See Comments:); Chloride 98 mmol/L (98-107); Hemoglobin - Calc 11.3 g/dL (14.0-18.0); O2 Tension (PvO2) 35.9 mmHg (35.0-45.0); Potassium 3.9 mmol/L (3.5-5.1); Sodium 132 mmol/L (138-145); T. Carbon Dioxide 25.7 mmol/L (22.0-28.0); pH (Venous) 7.364 (7.320-7.430); vO2 Saturation-calc 66.5 % (60.0-85.0)
--- NOTE | 2018-04-18 21:31 | CT ---
CT BRAIN WITHOUT CONTRAST: HISTORY: Bradycardia. Altered mental status. FINDINGS: There is some mild ventricular and sulcal prominence. There are no signs of intracerebral hemorrhage or extraaxial fluid collections. Chronic white matter change is noted. Incidental note is made of prominently falx, tentorial, and choroid plexus calcifications. The mastoid air cells and visualized sinuses are clear. IMPRESSION: No acute intracranial abnormalities. POS: [facility]
[2018-04-18 21:58] LABS: ALT (SGPT) 26 U/L (8-55); AST (SGOT) 20 U/L (5-34); Albumin 2.6 g/dL (3.5-5.0); Alkaline Phosphatase 202 U/L (40-150); Anion Gap 13 mmol/L (10-20); BUN (Urea Nitrogen) 25 mg/dL (8.4-25.7); Bilirubin, Total 0.2 mg/dL (0.2-1.2); CK (CPK) 41 U/L (30-200); Calc. Creatinine Clearance 0 mL/min (70-130); Calcium 7.7 mg/dL (7.8-10.44); Carbon Dioxide 18 mmol/L (22-29); Chloride 102 mmol/L (98-107); Estimated GFR-MDRD 32; Globulin 2.6 g/dL (2.4-3.5); Glucose 500 mg/dL (70-105); Lipase 31 U/L (8-78); Magnesium 1.6 mg/dL (1.6-2.6); Phosphorus 3.3 mg/dL (2.3-4.7); Protein, Total 5.2 g/dL (6.0-8.3); Sodium 129 mmol/L (136-145)
[2018-04-18 22:06] LABS: CKMB 1.7 ng/mL (0-6.6)
[2018-04-18 22:43] LABS: Bilirubin Negative (Negative); Blood, Urine Negative (Negative); Clarity CLEAR (Clear); Glucose, Urine (Dipstick) >=1000 mg/dL (Negative); Leukocyte Negative (Negative); Nitrite Negative (Negative); Protein, Urine (Dipstick) 100 mg/dL (Neg-Trace); Specific Gravity, Urine 1.018 (1.002-1.036)
[2018-04-18 22:45] LABS: Bacteria/HPF None Seen HPF (None Seen); Hyaline Casts/LPF 0-3 HYALINE CAST LPF (0-3 Hyaline); RBC/HPF None Seen HPF (0-3); Squamous Epithelial None Seen HPF (0-3); WBC/HPF None Seen HPF (0-3)
[2018-04-18] MEDS ORDERED: Insulin Regular 300 UNITS/3 ML VIAL ONE (23:15)
[2018-04-18] MEDS ORDERED: Ondansetron PF 4 MG/2 ML Vial ONE (23:30)
[2018-04-19 00:06] LABS: Amphetamine Not Detected (NotDetected); Barbiturates Screen Not Detected (NotDetected); Benzodiazepine Screen Not Detected (NotDetected); Cocaine Metabolite Screen Not Detected (NotDetected); Medtox Control Line Valid? VALID (VALID); Medtox Reader # READER 4; Methadone Not Detected (NotDetected); Methamphetamine Not Detected (NotDetected); Opiate Screen Not Detected (NotDetected); Oxycodone Screen Not Detected (NotDetected); Phencyclidine (PCP) Not Detected (NotDetected); THC/Cannabinoid Screen Detected (NotDetected); Tricyclic Screen Detected (NotDetected)
[2018-04-19] MEDS ORDERED: Ondansetron ODT 4 MG TAB PO PRN (01:05)
[2018-04-19] MEDS ORDERED: Acetaminophen 325 MG TAB PO PRN (01:05)
[2018-04-19] MEDS ORDERED: Ondansetron PF 4 MG/2 ML Vial IVP PRN (01:05)
[2018-04-19] MEDS ORDERED: Dextrose 5% in Water 1,000 ML IV PRN (01:08)
[2018-04-19] MEDS ORDERED: Dextrose 50% Abboject 50 ML SYRINGE SLOW IVP PRN (01:08)
[2018-04-19] MEDS ORDERED: HumaLOG 300 UNITS/3 ML VIAL SC PRN ×2 (01:08→07:41)
[2018-04-19 01:14] LABS: Troponin I 0.048 ng/mL (< 0.028)
[2018-04-19 03:38] LABS: #Basophils 0.1 thou/uL (0.0-0.2); #Eosinphils 0.2 thou/uL (0.0-0.7); #Lymphocytes 2.2 thou/uL (1.20-3.40); #Monocytes 0.9 thou/uL (0.11-0.59); #Neutrophils 8.4 thou/uL (1.40-6.50); %Basophils 0.6 % (0.0-1.0); %Eosinophils 1.5 % (0.0-10.0); %Lymphocytes 18.4 % (21.0-51.0); %Monocytes 7.5 % (0.0-10.0); %Neutrophils 72.2 % (42.0-75.0); Hemoglobin 10.1 g/dL (14.0-18.0); Mean Corpuscular HGB CONC 31.4 g/dL (32.0-36.0); Mean Corpuscular Hemoglobin 28.5 pg (27.0-31.0); Mean Corpuscular Volume 90.6 fL (78.0-98.0); Mean Platelet Volume 8.7 fL (7.4-10.4); Platelet Count 217 thou/uL (130-400); RBC Distribution Width 14.2 % (11.5-14.5); Red Blood Cell (RBC) Count 3.53 mill/uL (4.70-6.10); White Blood Cell (WBC) Count 11.7 thou/uL (4.8-10.8)
[2018-04-19 03:57] LABS: Anion Gap 12 mmol/L (10-20); BUN (Urea Nitrogen) 27 mg/dL (8.4-25.7); Calc. Creatinine Clearance 0 mL/min (70-130); Calcium 8.2 mg/dL (7.8-10.44); Carbon Dioxide 20 mmol/L (22-29); Chloride 105 mmol/L (98-107); Estimated GFR-MDRD 32; Glucose 268 mg/dL (70-105); Potassium 4.1 mmol/L (3.5-5.1); Sodium 133 mmol/L (136-145)
[2018-04-19 04:03] LABS: Troponin I 0.061 ng/mL (< 0.028)
--- NOTE | 2018-04-19 05:26 | HP ---
PRIMARY CARE DOCTOR: Dr. Yuri Carrington. CODE STATUS: Full code. TIME OF EVALUATION: 12:30 a.m. CHIEF COMPLAINT: Bradycardia and change in mental status. HISTORY OF PRESENT ILLNESS: Information has been gathered from ER physician and nursing staff. The patient is more alert now, but he does not recall what happened. He is basically a 62-year-old male patient with past medical history positive for diabetes type 2, congestive heart failure, hyperlipidemia, and hypertension, who was brought to the hospital by family members as the patient was having change in mental status and the heart rate was very low, no clear triggers and no alleviating factors. Supposedly, the patient had an increased dose of beta-blockers given this evening, and after that, the patient developed some low heart rate and also developed some change in mental status. For that reason, the patient was brought in to the hospital here. He has been stable. Mentation has been improving slowly. The patient has some nausea and vomiting. No other significant findings on initial evaluation. REVIEW OF SYSTEMS: Unable to obtain. The patient is unable to recall what happened and does not report any other symptoms. PAST MEDICAL HISTORY/PERSONAL HISTORY: As mentioned in the HPI. PAST SURGICAL HISTORY: The patient has bilateral AKA, back surgery, coronary artery bypass graft surgery x4 vessels. PSYCH HISTORY: No previous psych history. FAMILY HISTORY: Reviewed and non contributory to current presentation. SOCIAL HISTORY: The patient abuses drugs, marijuana. The patient smokes tobacco, reportedly quit 2 weeks ago. Drinks socially. KNOWN ALLERGIES: No known drug allergies. REPORTED MEDICATIONS: 1. Crestor. 2. Prednisone. 3. Cefdinir. 4. Carvedilol. 5. Diltiazem. 6. Benzonatate. 7. Amitriptyline. 8. Xarelto. 9. Nitroglycerin. 10. Amiodarone. 11. Acetaminophen. 12. Dulcolax. PHYSICAL EXAMINATION: VITAL SIGNS: On presentation, blood pressure 96/51, heart rate 51, respiratory rate was 16, temperature 98.3. The pain was 0/10. Oxygen saturation was 98% on room air. GENERAL APPEARANCE: The patient is lethargic. He is able to establish a simple conversation. His mental status change as per nursing staff is improving. HEENT: Eyes, normal conjunctivae. Moist oral mucosa. Anicteric. No JVD. RESPIRATORY: Bilateral air entry. No rales. No wheezes. Symmetric expansion. CARDIOVASCULAR: The patient is bradycardic in the rate of 40s, regular rhythm. No murmurs. No gallop. ABDOMEN: Soft. Normal bowel sounds. MUSCULOSKELETAL: Baseline range of motion and strength. No tenderness. SKIN: Warm, intact. No pallor. No rash. No redness. Peripheral pulses are present. Capillary refill seems to be intact. NEUROLOGIC: Unable to fully explore. The patient is lethargic. PSYCH: Unable to fully explore. DIAGNOSTIC DATA: EKG was reviewed. The patient has sinus bradycardia at the rate of 49, QRS 96, QT corrected 431. Brain CT was done. The patient has no acute intracranial abnormalities. Chest x-ray was done, the patient has cardiomegaly. LABORATORY DATA: Labs were reviewed. The patient has a white count of 8.5, hemoglobin 9.1, hematocrit 28.9, platelet count 217. Blood gas, VBG; pH 7.36. Chemistry: Sodium 129, repeat one 133; potassium 4.0; chloride 102; carbon dioxide was 18; anion gap 13; BUN was 25 with creatinine 2.52, repeat one 2.51, this is a known problem for this patient with chronic kidney disease. Glucose on presentation initially was 500, second one was 268. Calcium 7.7, lactic acid 1.9. Troponin was done, the patient has initial one 0.041, the second one 0.061. Beta-natriuretic peptide 405.9. Albumin 2.6. The patient's toxicology showed positive for tricyclics and cannabinoids. ASSESSMENT AND PLAN: The patient will be placed in the hospital for following medical problems: 1. Acute encephalopathy of unclear etiology, seems to be metabolic related to drug abuse, already improving. We will monitor. The patient's mentation has been improving slowly since he got to the hospital. 2. Chronic kidney disease. Creatinine seems to be better than previous admissions. We will monitor kidney function. We will adjust treatment as needed. 3. Uncontrolled diabetes. The patient presented with blood sugar in the range of 500. After initial treatment, has started to improve. We will monitor and place the patient on sliding scale. 4. Hyponatremia with a sodium 129 133. We will monitor, no need for any further intervention at this point. We will replace electrolytes as needed. 5. Mildly positive troponin, likely non-ST elevated myocardial infarction type 2. Also might be related to underlying chronic kidney disease. Troponin is 0.041 and second one is 0.061. No need for any acute intervention at this point. We will monitor and adjust treatment as needed. 6. Drug abuse. Positive for cannabinoids and tricyclics. We will monitor the patient. We will treat accordingly. The patient is already improving. 7. Symptomatic bradycardia, possible ingestion of an extra dose of beta- lizz. We will monitor, heart rate has been in the low side; however, it has been stable and blood pressure has been normal. We will treat accordingly. 8. Initial presentation with hypotension with systolic blood pressure 86, has recovered during the patient's stay. We will monitor. 9. Deep venous thrombosis prophylaxis. 10. Risk assessment, high risk due to acute encephalopathy. Job ID: [id number] MTDD
[2018-04-19] MEDS ORDERED: Bisacodyl 5 MG TAB PO PRN (07:41)
[2018-04-19] MEDS ORDERED: Diabetic Tussin 200 MG/10 ML UDCUP PO PRN (07:41)
[2018-04-19] MEDS ORDERED: Bisacodyl 10 MG SUPP PR PRN (07:41)
[2018-04-19] MEDS ORDERED: Artificial Tears 18 DROP/0.9 ML EA EYE PRN (07:41)
[2018-04-19] MEDS ORDERED: Senokot S 8.6-50 MG TAB PO PRN (07:41)
[2018-04-19] MEDS ORDERED: Loratadine 10 MG TAB PO PRN (07:41)
[2018-04-19] MEDS ORDERED: Zolpidem Tartrate 5 MG TAB PO PRN (07:41)
[2018-04-19] MEDS ORDERED: Cepastat Lozenges 1 LOZ PO PRN (07:41)
[2018-04-19] MEDS ORDERED: Sodium Chloride 0.65% Nasal 44 ML BOT EA NARE PRN (07:41)
[2018-04-19] MEDS ORDERED: hydrALAZINE 20 MG/ML VIAL SLOW IVP PRN (07:41)
[2018-04-19] MEDS ORDERED: Calcium Carbonate 500 MG ChewTAB PO PRN (07:41)
[2018-04-19] MEDS ORDERED: Loperamide HCl 2 MG CAP PO PRN (07:41)
[2018-04-19] MEDS ORDERED: Eucerin (Mineral Oil/Petrolatum,White) 30 gm Jar TOP PRN (07:41)
[2018-04-19] MEDS ORDERED: HYDROcodone/Acetaminophen 5/325 mg Tablet PO PRN (07:41)
[2018-04-19] MEDS ORDERED: Heparin 5,000 UNITS/ML VIAL SC SCH (09:00)
--- NOTE | 2018-04-19 11:33 | PDOC.EVN ---
Event Note - Event Note Event Note: The Patient's chart was reviewed for the purpose of utilization management. The patient's level of acuity does not meet inpatient status. Therefore under the Medicare Provision Code 44, the patient's status will be changed to Inpatient. The patient's Attending Physicial agrees.
--- NOTE | 2018-04-19 12:45 | PDOC.PN ---
- Subjective Encounter Start Date: 04/19/18 Encounter Start Time: 10:00 -: old records requested/rev Patient seen and examined. No new complaints. No overnight events - Objective Resuscitation Status - Order Detail: 04/19/18 01:05 Resuscitation Status Routine Resuscitation Status: FULL: Full Resuscitation MAR Reviewed: Yes Result Diagrams: 04/19/18 03:30 04/19/18 03:30 Additional Labs: Accuchecks 04/19/18 04/19/18 00:48 00:02 POC Glucose 380 H 400 H Radiology Reviewed by me: Yes EKG Reviewed by me: Yes (nsr) Phys Exam - Physical Examination Constitutional: NAD HEENT: PERRLA, moist MMs, sclera anicteric Neck: no JVD, supple Respiratory: no wheezing, no rales, no rhonchi Cardiovascular: RRR, no significant murmur Gastrointestinal: soft, non-tender, no distention, positive bowel sounds bilateral AKA Lymphatic: no nodes Psychiatric: normal affect, A&O x 3 Skin: no rash, normal turgor Dx/Plan (1) Bradycardia, drug induced Code(s): R00.1 - BRADYCARDIA, UNSPECIFIED; T50.905A - ADVERSE EFFECT OF UNSP DRUG/MEDS/BIOL SUBST, INIT Status: Resolved (2) Chest pain Code(s): R07.9 - CHEST PAIN, UNSPECIFIED Status: Resolved (3) Hyperglycemia due to type 2 diabetes mellitus Code(s): E11.65 - TYPE 2 DIABETES MELLITUS WITH HYPERGLYCEMIA Status: Acute (4) Hypotension Status: Acute (5) CAD (coronary artery disease) Code(s): I25.10 - ATHSCL HEART DISEASE OF [place] CORONARY ARTERY W/O ANG PCTRS Status: Chronic (6) CKD (chronic kidney disease) stage 3, GFR 30-59 ml/min Code(s): N18.3 - CHRONIC KIDNEY DISEASE, STAGE 3 (MODERATE) Status: Chronic (7) Cannabis abuse Code(s): F12.10 - CANNABIS ABUSE, UNCOMPLICATED Status: Chronic (8) Chronic combined systolic (congestive) and diastolic (congestive) heart failure Code(s): I50.42 - CHRONIC COMBINED SYSTOLIC AND DIASTOLIC HRT FAIL Status: Chronic (9) DM2 (diabetes mellitus, type 2) Status: Chronic Comment: (10) Elevated troponin Code(s): R74.8 - ABNORMAL LEVELS OF OTHER SERUM ENZYMES Status: Chronic (11) HLD (hyperlipidemia) Code(s): E78.5 - HYPERLIPIDEMIA, UNSPECIFIED Status: Chronic Qualifiers: (12) HTN (hypertension) Code(s): I10 - ESSENTIAL (PRIMARY) HYPERTENSION Status: Chronic (13) Moderate tricuspid regurgitation by prior echocardiogram Code(s): I07.1 - RHEUMATIC TRICUSPID INSUFFICIENCY Status: Chronic (14) S/P AKA (above knee amputation) bilateral Code(s): Z89.611 - ACQUIRED ABSENCE OF RIGHT LEG ABOVE KNEE; Z89.612 - ACQUIRED ABSENCE OF LEFT LEG ABOVE KNEE Status: Chronic (15) Severe mitral regurgitation by prior echocardiogram Code(s): I34.0 - NONRHEUMATIC MITRAL (VALVE) INSUFFICIENCY Status: Chronic (16) Tobacco abuse Code(s): Z72.0 - TOBACCO USE Status: Chronic - Plan cont current plan of care * medication reviewed as below * symptomatic treatment * will observe overnight and control blood sugar and monitor tele * will consider observations status * expecting discharge tomorrow * cardiology consulted for meds adjustment. Review of Systems - Review of Systems Constitutional: negative: fever, chills, sweats, weakness, malaise, other ENT: negative: Ear Pain, Ear Discharge, Nose Pain, Nose Discharge, Nose Congestion, Mouth Pain, Mouth Swelling, Throat Pain, Throat Swelling, Other Respiratory: negative: Cough, Dry, Shortness of Breath, Hemoptysis, SOB with Excertion, Pleuritic Pain, Sputum, Wheezing Cardiovascular: negative: chest pain, palpitations, orthopnea, paroxysmal nocturnal dyspnea, edema, light headedness, other Gastrointestinal: negative: Nausea, Vomiting, Abdominal Pain, Diarrhea, Constipation, Melena, Hematochezia, Other - Medications/Allergies Allergies/Adverse Reactions: Allergies Allergy/AdvReac Type Severity Reaction Status Date / Time No Known Allergies Allergy Verified 03/31/18 22:20 Medications: Current Medications Acetaminophen (Tylenol) 650 mg PO Q4H PRN PRN Reason: Headache/Fever/Mild Pain (1-3) Hydrocodone Bitart/Acetaminophen ([place] 5/325) 1 tab PO Q4H PRN PRN Reason: Moderate Pain (4-6) Amitriptyline HCl (Elavil) 25 mg PO DAILY ALLEN Artificial Tears (Tears Naturale) 2 drop EA EYE PRN PRN PRN Reason: Dry Eyes Bisacodyl (Dulcolax) 10 mg PO DAILYPRN PRN PRN Reason: Constipation Bisacodyl (Dulcolax) 10 mg AL DAILYPRN PRN PRN Reason: Constipation Calcium Carbonate (Tums) 1,000 mg PO Q4H PRN PRN Reason: Heartburn or Indigestion Dextrose/Water (Dextrose 50%) 25 gm SLOW IVP PRN PRN PRN Reason: Hypoglycemia Famotidine (Pepcid) 20 mg PO DAILY ALLEN Glucagon (Glucagon) 1 mg IM PRN PRN PRN Reason: Hypoglycemia Guaifenesin (Robitussin Sf) 200 mg PO Q4H PRN PRN Reason: Cough Hydralazine HCl (Apresoline) 10 mg SLOW IVP Q4H PRN PRN Reason: SBP > 180 and HR < 70 Dextrose/Water (D5w) 1,000 mls @ 0 mls/hr IV .Q0M PRN PRN Reason: Hypoglycemia Insulin Human Lispro (Humalog) 0 units SC .AGGRESSIVE SLIDING PRN PRN Reason: Aggressive Correctional Scale Insulin Human Lispro (Humalog) 0 units SC .BEDTIME SLIDING SC PRN PRN Reason: Bedtime Correctional Scale Loperamide HCl (Imodium) 2 mg PO PRN PRN PRN Reason: Diarrhea/Loose Stools Loratadine (Claritin) 10 mg PO DAILYPRN PRN PRN Reason: Sinus Symptoms Mineral Oil/White Petrolatum (Eucerin Cream) 0 gm TOP BIDPRN PRN PRN Reason: Dry Skin Ondansetron HCl (Zofran Odt) 4 mg PO Q6H PRN PRN Reason: Nausea/Vomiting Ondansetron HCl (Zofran) 4 mg IVP Q6H PRN PRN Reason: Nausea/Vomiting Rivaroxaban (Xarelto) 15 mg PO DAILY [facility] Rosuvastatin Calcium (Crestor) 20 mg PO HS ALLEN Senna/Docusate Sodium (Senokot S) 2 tab PO BID PRN PRN Reason: Constipation Sodium Chloride (Turin Nasal [place] 0.65%) 0 ml EA NARE QIDPRN PRN PRN Reason: Nasal Congestion Throat Lozenges (Cepastat Lozenges) 1 preeti PO Q2H PRN PRN Reason: Sore Throat Zolpidem Tartrate (Ambien) 5 mg PO HSPRN PRN PRN Reason: Insomnia
[2018-04-19 12:57] VITALS: BMI 28.3
[2018-04-19] MEDS: Famotidine 20 MG TAB PO SCH (13:16)
[2018-04-19] MEDS: Rivaroxaban 15 MG TAB PO SCH (13:17)
[2018-04-19] MEDS: Amitriptyline HCl 25 MG TAB PO SCH (13:17)
[2018-04-19] MEDS: HumaLOG 300 UNITS/3 ML VIAL SC PRN ×2 (13:21→17:07)
[2018-04-19] MEDS ORDERED: Rosuvastatin 20 MG TAB PO SCH (21:00)
--- NOTE | 2018-04-19 23:01 | CON ---
DATE OF CONSULTATION: HISTORY OF PRESENT ILLNESS: Prudencio Calderon is a 62-year-old black male with longstanding history of coronary artery disease and peripheral vascular disease. He has undergone CABG x4 many years ago. In November 2010, the ramus and diagonal grafts were found to be occluded, then he underwent stent placement in the ramus. He also has had atrial flutter in the past, underwent ablation of that. Two or three months ago, he was admitted with pneumonia and found to be in atrial fibrillation. Echo revealed ejection fraction of 40% to 45%. He was placed on amiodarone and Xarelto. He now apparently took an extra dose of his medications. He stated that he felt all right, went home, and then apparently started having episodes of shortness of breath. He was brought to the emergency room, found to be in junctional bradycardia with heart rates in the 50s. He denies any significant chest discomfort. PAST MEDICAL HISTORY: Coronary artery disease, hypertension, hypercholesterolemia, diabetes, chronic kidney disease, peripheral vascular disease, status post bilateral AKA and atrial flutter ablation. PAST SURGICAL HISTORY: CABG, aortobifemoral bypass, bilateral dbszy-edm-kild amputation, bilateral iliac stent placement, and back surgery. MEDICATIONS: 1. Amiodarone 200 mg daily. 2. Elavil 25 mg at bedtime. 3. Tessalon 100 t.i.d. 4. Dulcolax p.r.n. 5. Carvedilol 3.125 b.i.d. 6. Omnicef 600 daily. 7. Diltiazem 300 daily. 8. Nitroglycerin 0.4. 9. Prednisone 40 mg q.a.m. 10. Xarelto 15 mg daily. 11. Crestor 20 mg daily. ALLERGIES: NONE. SOCIAL HISTORY: He continues to smoke. He also uses cocaine and marijuana. FAMILY HISTORY: Positive for coronary artery disease. REVIEW OF SYSTEMS: Otherwise unremarkable. PHYSICAL EXAMINATION: VITAL SIGNS: Blood pressure 136/73, pulse of 90. HEENT: PERRL. NECK: Supple. CHEST: Clear. CARDIAC: S1 and S2 normal without any S3, S4, or murmurs. ABDOMEN: Normal bowel sounds without tenderness or organomegaly. EXTREMITIES: Revealed bilateral AKA. NEUROLOGICAL: Grossly intact. LABORATORY DATA: EKG initially showed junctional bradycardia with heart rates in the 50s. This was resolved, but on the monitor he continues to remain in normal sinus rhythm. ASSESSMENT: 1. Junctional bradycardia after taking a double dose of his medications. 2. History of nonsustained ventricular tachycardia. 3. Atrial fibrillation, converted to sinus rhythm two admissions ago. 4. History of atrial flutter ablation, December 2009. 5. Status post coronary artery bypass graft x4 with the diagonal and ramus grafts occluded in November 2010. Also at that time a stent was placed in the [place] ramus. 6. Hypertension. 7. Hypercholesterolemia. 8. Smoker. 9. Cocaine abuse. 10. Marijuana abuse. 11. Bilateral [id number]-sqoz amputations. 12. Chronic kidney disease. 13. Hepatitis C. PLAN: Mr. Calderon is on very high dose of diltiazem. Certainly, he took a double dose of his medications. It could have induced bradycardia. I would recommend discontinuing the diltiazem, but continue the amiodarone to help suppress his atrial fibrillation and the low-dose carvedilol with his mild left ventricular dysfunction. He probably can be discharged in the morning. Job ID: [id number]
[2018-04-20 05:38] LABS: #Basophils 0.1 thou/uL (0.0-0.2); #Eosinphils 0.3 thou/uL (0.0-0.7); #Lymphocytes 3.2 thou/uL (1.20-3.40); #Monocytes 0.9 thou/uL (0.11-0.59); #Neutrophils 5.2 thou/uL (1.40-6.50); %Basophils 0.6 % (0.0-1.0); %Eosinophils 3.2 % (0.0-10.0); %Monocytes 9.1 % (0.0-10.0); %Neutrophils 54.1 % (42.0-75.0); Hemoglobin 10.4 g/dL (14.0-18.0); Mean Corpuscular HGB CONC 32.1 g/dL (32.0-36.0); Mean Corpuscular Volume 90.4 fL (78.0-98.0); Mean Platelet Volume 9.2 fL (7.4-10.4); Platelet Count 229 thou/uL (130-400); RBC Distribution Width 14.6 % (11.5-14.5); Red Blood Cell (RBC) Count 3.61 mill/uL (4.70-6.10); White Blood Cell (WBC) Count 9.7 thou/uL (4.8-10.8)
[2018-04-20 06:03] LABS: ALT (SGPT) 44 U/L (8-55); AST (SGOT) 38 U/L (5-34); Albumin 2.8 g/dL (3.5-5.0); Alkaline Phosphatase 222 U/L (40-150); Anion Gap 14 mmol/L (10-20); BUN (Urea Nitrogen) 27 mg/dL (8.4-25.7); Bilirubin, Total 0.2 mg/dL (0.2-1.2); Calc. Creatinine Clearance 37 mL/min (70-130); Calcium 8.5 mg/dL (7.8-10.44); Carbon Dioxide 18 mmol/L (22-29); Chloride 107 mmol/L (98-107); Estimated GFR-MDRD 39; Glucose 110 mg/dL (70-105); Potassium 4.6 mmol/L (3.5-5.1); Protein, Total 5.8 g/dL (6.0-8.3); Sodium 134 mmol/L (136-145)
[2018-04-20] MEDS: Famotidine 20 MG TAB PO SCH (08:02)
[2018-04-20] MEDS: Rivaroxaban 15 MG TAB PO SCH (08:03)
[2018-04-20] MEDS: Amitriptyline HCl 25 MG TAB PO SCH (08:03)
[2018-04-20 09:22] VITALS: BP 160/86; TEMP 98
--- NOTE | 2018-04-22 12:55 | DIS ---
DATE OF ADMISSION: 04/18/2018 DATE OF DISCHARGE: 04/20/2018 DISCHARGE DISPOSITION: Home. PRIMARY DISCHARGE DIAGNOSES: Hyperglycemia associated with diabetes, type 2; chest pain, resolved; bradycardia due to medication, improved. SECONDARY DISCHARGE DIAGNOSES: Tobacco abuse disorder; severe mitral regurgitation; bilateral arppo-jjq-[id number] amputation; moderate tricuspid regurgitation; hypertension; dyslipidemia; chronically elevated troponin; diabetes, type 2; CKD, stage 3; chronic systolic and diastolic heart failure; cannabis abuse; and coronary artery disease. PRIMARY PROCEDURE/OPERATION: None. RADIOLOGICAL INVESTIGATION: CT brain, negative. Chest x-ray, normal. SIGNIFICANT LABORATORY DATA: WBC 9.7, hemoglobin 10.4, platelet 229. Sodium 134, potassium 4.6, creatinine 2.12. AST 38, ALT 44, alkaline phosphatase 222, albumin 2.8. Urinalysis, unremarkable. Urine drug screen, positive for cannabinoids. Serum ketones, normal. Urine culture, negative. Influenza, negative. Blood culture, negative. DISCHARGE MEDICATIONS: 1. Amiodarone 200 mg daily. 2. Dulcolax 5 mg p.o. daily p.r.n. 3. Coreg 3.125 mg b.i.d. 4. Crestor 20 mg p.o. daily. 5. Nitroglycerin p.r.n. 6. Amitriptyline 25 mg p.o. at bedtime. 7. Glucotrol 2.5 mg p.o. daily. 8. Xarelto 15 mg p.o. daily. CONTRAINDICATION: None. CODE STATUS: Full code. INPATIENT GRIP BOSS: Dr. Morales. TEST RESULTS PENDING ON DISCHARGE,: None. ALLERGIES: NO KNOWN DRUG ALLERGIES. DISCHARGE PLAN: Posthospital, the patient will follow up with primary care physician and Dr. Morales. HOSPITAL COURSE: A 62-year-old male, who was complaining of chest pain. At that time, he was found with hyperglycemia and bradycardia. The patient was on too many medications, that can cause bradycardia. During this admission, we discontinued Cardizem and digoxin. We continued only with amiodarone and Coreg. The patient's bradyarrhythmia resolved. Hyperglycemia resolved with Glucotrol. All new medication prescription given. The patient remained in observation status. The patient was seen and examined on the day of discharge. His examination was unchanged from admission. This was late dictation, but the patient was seen on the day of discharge, on April 20, 2018. Job ID: [id number]
== END 2018-04-20 09:15 | disposition home or self-care (01) ==
LOC: ERS 20:41 → ERHOLD 23:27 → INTOOBSV 23:27 → 2SW 04-19 12:51
PROVIDERS: ADMIT Hospitalist; ATTEND Hospitalist
DX: E11.65 Type 2 diabetes mellitus with hyperglycemia (principal); R00.1 Bradycardia, unspecified; T50.905A Adverse effect of unspecified drugs, medicaments and biological substances, initial encounter; I36.1 Nonrheumatic tricuspid (valve) insufficiency; I34.0 Nonrheumatic mitral (valve) insufficiency; I13.0 Hypertensive heart and chronic kidney disease with heart failure and stage 1 through stage 4 chronic kidney disease, or unspecified chronic kidney disease; E11.22 Type 2 diabetes mellitus with diabetic chronic kidney disease; N18.3 Chronic kidney disease, stage 3 (moderate); I50.42 Chronic combined systolic (congestive) and diastolic (congestive) heart failure; F12.10 Cannabis abuse, uncomplicated; F19.10 Other psychoactive substance abuse, uncomplicated; F14.10 Cocaine abuse, uncomplicated; I25.10 Atherosclerotic heart disease of native coronary artery without angina pectoris; I95.9 Hypotension, unspecified; I73.9 Peripheral vascular disease, unspecified; I47.2 Ventricular tachycardia; B19.20 Unspecified viral hepatitis C without hepatic coma; E87.1 Hypo-osmolality and hyponatremia; E78.00 Pure hypercholesterolemia, unspecified; Z95.1 Presence of aortocoronary bypass graft; Z89.611 Acquired absence of right leg above knee; Z89.612 Acquired absence of left leg above knee; Z79.01 Long term (current) use of anticoagulants; Z79.84 Long term (current) use of oral hypoglycemic drugs; Z79.899 Other long term (current) drug therapy; Z98.890 Other specified postprocedural states
CPT/HCPCS: 36415; 36416; 51701; 70450; 71045; 80048; 80053; 80306; 80307; 81003; 81015; 82010; 82330; 82550; 82553; 82803; 83605; 83690; 83735; 83880; 84100; 84484; 85025; 87040; 87086; 87804; 93005; 96360; 96374; 96375; C1713; G0378; J1610; J1815; J2405

== ENCOUNTER 2018-05-17 12:54 | Inpatient (IN) | payer OTHER ==
[2018-05-17 13:27] LABS: #Basophils 0.1 thou/uL (0.0-0.2); #Eosinphils 0.5 thou/uL (0.0-0.7); #Lymphocytes 2.3 thou/uL (1.20-3.40); #Monocytes 1.3 thou/uL (0.11-0.59); #Neutrophils 8.9 thou/uL (1.40-6.50); %Basophils 0.5 % (0.0-1.0); %Eosinophils 3.7 % (0.0-10.0); %Lymphocytes 17.7 % (21.0-51.0); %Monocytes 9.6 % (0.0-10.0); %Neutrophils 68.5 % (42.0-75.0); Hemoglobin 8.5 g/dL (14.0-18.0); Mean Corpuscular HGB CONC 31.8 g/dL (32.0-36.0); Mean Corpuscular Hemoglobin 27.3 pg (27.0-31.0); Mean Corpuscular Volume 86.1 fL (78.0-98.0); Mean Platelet Volume 9.3 fL (7.4-10.4); Platelet Count 299 thou/uL (130-400); RBC Distribution Width 13.5 % (11.5-14.5); Red Blood Cell (RBC) Count 3.12 mill/uL (4.70-6.10); White Blood Cell (WBC) Count 13.1 thou/uL (4.8-10.8)
[2018-05-17 13:29] LABS: INR-International Normal Ratio 3.8
[2018-05-17 13:45] LABS: ALT (SGPT) 16 U/L (8-55); AST (SGOT) 14 U/L (5-34); Albumin 3.2 g/dL (3.5-5.0); Alkaline Phosphatase 168 U/L (40-150); Anion Gap 10 mmol/L (10-20); BUN (Urea Nitrogen) 24 mg/dL (8.4-25.7); Bilirubin, Total 0.2 mg/dL (0.2-1.2); Calc. Creatinine Clearance 0 mL/min (70-130); Calcium 8.1 mg/dL (7.8-10.44); Carbon Dioxide 21 mmol/L (22-29); Chloride 101 mmol/L (98-107); Estimated GFR-MDRD 36; Glucose 361 mg/dL (70-105); Magnesium 1.6 mg/dL (1.6-2.6); Potassium 5.1 mmol/L (3.5-5.1); Protein, Total 6.2 g/dL (6.0-8.3); Sodium 127 mmol/L (136-145)
[2018-05-17 14:07] LABS: CKMB 1.9 ng/mL (0-6.6)
--- NOTE | 2018-05-17 14:50 | RAD ---
PORTABLE AP CHEST: Date: 05/17/18 HISTORY: Chest pain. COMPARISON: 04/08/18. FINDINGS: Postsurgical changes related to median sternotomy are again noted. Cardiac silhouette is magnified by projection, but stable in size. There has been interval development of pleural and parenchymal witt e at the right lung base, likely related to right pleural effusion and atelectasis. However, superimp osed infiltrate related to pneumonia cannot be entirely excluded. There is minimal patchy density in the medial left lung base as well. Pulmonary vasculature is within normal limits. Vascular calcificat ions seen in thoracic aorta. No other interval change. IMPRESSION: Interval development of pleural and parenchymal changes right lung base, likely related to right pleu ral effusion and atelectasis. However, superimposed infiltrate related to pneumonia is a possibility. There is also mild patchy density in the retrocardiac region medial left lung base which could be re lated to atelectasis or infiltrate. Follow-up chest x-ray is recommended. POS: ELPIDIO
[2018-05-17 17:05] LABS: Troponin I 0.037 ng/mL (< 0.028)
[2018-05-17] MEDS ORDERED: Ondansetron PF 4 MG/2 ML Vial IVP PRN (17:07)
[2018-05-17] MEDS ORDERED: Ondansetron ODT 4 MG TAB SL PRN (17:07)
[2018-05-17] MEDS ORDERED: Acetaminophen 325 MG TAB PO PRN (17:07)
[2018-05-17] MEDS ORDERED: Senokot S 8.6-50 MG TAB PO PRN (17:54)
[2018-05-17] MEDS: Sodium Chloride 0.45% 1,000 ML IV SCH (18:29)
[2018-05-17] MEDS: Famotidine 20 MG TAB PO SCH (20:00)
[2018-05-17] MEDS ORDERED: Dextrose 5% in Water 1,000 ML IV PRN (20:18)
[2018-05-17] MEDS ORDERED: Dextrose 50% Abboject 50 ML SYRINGE SLOW IVP PRN (20:18)
[2018-05-17 20:35] LABS: Troponin I 0.047 ng/mL (< 0.028)
--- NOTE | 2018-05-17 22:19 | HP ---
PRIMARY CARE PHYSICIAN: [facility] physicians listed. The [facility] is [facility] an [facility] The patient has Dr. Yuri Carrington listed on last admission. CHIEF COMPLAINT: Chest pain. HISTORY OF PRESENT ILLNESS: Mr. Calderon was evaluated in the emergency room after he arrived via EMS for chest pain, which he reports as substernal and left upper chest. Reports pain is sharp in nature. Reports that he had some shortness of breath associated with that. Denied any diaphoresis. The patient's condition was exacerbated by deep breath. Reports the pain has improved since he was initially seen in the emergency room, but reports the pain is still there. Reports that it is similar to the pain that he had when he had his last heart attack. The patient does have a history pertinent for coronary artery bypass graft surgery four vessels, was discharged within the last month for bradycardia, which was thought to be related to his medications. The patient does also have a history of congestive heart failure, type 2 diabetes, hyperlipidemia, hypertension, recently stopped smoking cigarettes, is a habitual marijuana user. The patient was discharged from this facility on 04/20/2018 for hyperglycemia and bradycardia. The patient has had a recent echocardiogram on 04/04/2018, which showed mild concentric left ventricular hypertrophy. Overall, left ventricular function is mildly depressed. EF is visually estimated at 45% to 50%, suggestive of diastolic dysfunction. Left atrium is mildly dilated. Severe mitral regurgitation is present. Mild to moderate tricuspid regurgitation. The patient will be admitted to the telemetry unit for further risk stratification. REVIEW OF SYSTEMS: CONSTITUTIONAL: The patient denies fever or chills. EYES: Denies any vision changes or eye pain. ENT: Denies sore throat or rhinorrhea. CARDIOVASCULAR: Does report some chest pain. Denies diaphoresis. Reports orthopnea. RESPIRATORY: Reports shortness of breath. Denies cough. GI: Denies abdominal pain, constipation, diarrhea, nausea, or vomiting. : Denies hematuria or dysuria. MUSCULOSKELETAL: Denies any falls or injury. SKIN: Denies any changes. NEUROLOGIC: Denies any changes. Notes previous systems negative unless documented in the HPI. PHYSICAL EXAMINATION: VITAL SIGNS: Temperature is 97.5, pulse is 83, respiratory rate 16, O2 sats 97% on room air, blood pressure 153/78. CONSTITUTIONAL: The patient appears nontoxic, pain-free, alert and oriented to person, place, and time. HEENT: Head is atraumatic and normocephalic. Eyes; eyelids are normal to inspection. Extraocular muscles are intact. ENT; mucous membranes are moist. Mouth exam is normal. NECK: Trachea is midline. No JVD. No tenderness. Normal range of motion. RESPIRATORY: Chest movement is symmetrical. Breath sounds are clear. CARDIOVASCULAR: Regular heart rate and rhythm. Heart sounds are normal. ABDOMEN: Nontender. No distention is noted. EXTREMITIES: Upper extremity, normal range of motion. Motor strength is normal. Radial pulses are equal bilaterally. Lower extremity, bilateral lower leg amputation above the knee. NEUROLOGIC: The patient is alert and oriented to person, place, and time. Speech is normal. SKIN: Warm, dry, normal in color. PSYCHIATRIC: Normal affect. He is alert and oriented to person, place, and time. EKG INTERPRETATION: Beats per minute 56, sinus yesica. Conduction is normal. [place] is normal. Left ventricular hypertrophy. Inferolateral ischemia, [place] 164. RADIOLOGY INTERPRETATION: CABG changes, right-sided pleural effusion. PAST MEDICAL HISTORY: As above. Type 2 diabetes, congestive heart failure, hyperlipidemia, hypertension, and bradycardia. PAST SURGICAL HISTORY: Bilateral AKA, back surgery, coronary artery bypass graft surgery x4 vessels. PSYCHIATRIC HISTORY: None. FAMILY HISTORY: Reviewed and noncontributory to current presentation. SOCIAL HISTORY: The patient abuses drugs, marijuana. The patient smokes cigarettes, but reports he quit several weeks ago. Drinks socially. Currently, is a resident of the [facility]. KNOWN ALLERGIES: None. MEDICATIONS: Reported medications, although these have not been verified; 1. Crestor. 2. Prednisone. 3. Cefdinir. 4. Carvedilol. 5. Diltiazem, although this was supposedly discontinued on last visit. 6. Tessalon. 7. Amitriptyline. 8. Xarelto. 9. Nitroglycerin. 10. Amiodarone. 11. Tylenol. 12. Dulcolax. PERTINENT LABORATORY DATA: Sodium 127, potassium is 5.1, chloride is 101, carbon dioxide is 21, gap is 10, BUN is 24, creatinine is 2.27, estimated GFR is 36, glucose is 361, calcium is 8.1, magnesium 1.6. Bilirubin is 0.2, AST is 14, ALT is 16, alkaline phosphatase is 168. CK-MB is 1.9. Troponin first one is 0.045, second 0.037. BNP is 615.5, albumin 3.2, globulin 3.0. PT is 37, INR is 3.8. White blood cell count is 13.1, hemoglobin is 8.5, hematocrit is 26.9, and platelet count is 299. ASSESSMENT AND PLAN: 1. Chest pain. We will trend troponins. We will ask Dr. Guo, Cardiology, to evaluate the patient. The patient has had multiple episodes of chest pain in the last several months. We will appreciate their recommendations for further management. We will give the patient aspirin daily. We will continue home medications. 2. Hypertension. We will restart home medications. We will trend. 3. Hyponatremia. We will add gentle hydration, half normal saline at 75 mL per hour. We will recheck in the morning. 4. Chronic kidney disease. We will trend. Appears stable. 5. Diabetes type 2. We will restart home medications. We will add a sliding scale insulin. 6. Congestive heart failure. The patient has a BNP of 615 in light of the hyponatremia. The fact that patient is currently asymptomatic, we will trend. 7. Deep venous thrombosis prophylaxis will not be started due to above the knee amputations and chronic renal failure. 8. We will start gastrointestinal prophylaxis. 9. Hospital course will be dependent on clinical findings. Job ID: [id number]
[2018-05-18 06:43] LABS: #Basophils 0.1 thou/uL (0.0-0.2); #Eosinphils 0.5 thou/uL (0.0-0.7); #Lymphocytes 2.5 thou/uL (1.20-3.40); #Monocytes 1.1 thou/uL (0.11-0.59); #Neutrophils 7.6 thou/uL (1.40-6.50); %Basophils 0.6 % (0.0-1.0); %Eosinophils 4.4 % (0.0-10.0); %Lymphocytes 20.8 % (21.0-51.0); %Monocytes 9.7 % (0.0-10.0); %Neutrophils 64.6 % (42.0-75.0); Hemoglobin 8.6 g/dL (14.0-18.0); Mean Corpuscular HGB CONC 31.9 g/dL (32.0-36.0); Mean Corpuscular Hemoglobin 27.2 pg (27.0-31.0); Mean Corpuscular Volume 85.4 fL (78.0-98.0); Platelet Count 283 thou/uL (130-400); RBC Distribution Width 13.5 % (11.5-14.5); Red Blood Cell (RBC) Count 3.18 mill/uL (4.70-6.10); White Blood Cell (WBC) Count 11.8 thou/uL (4.8-10.8)
[2018-05-18 06:56] LABS: Anion Gap 11 mmol/L (10-20); BUN (Urea Nitrogen) 21 mg/dL (8.4-25.7); Calc. Creatinine Clearance 38 mL/min (70-130); Calcium 8.5 mg/dL (7.8-10.44); Carbon Dioxide 20 mmol/L (22-29); Chloride 106 mmol/L (98-107); Estimated GFR-MDRD 42; Glucose 202 mg/dL (70-105); Potassium 4.5 mmol/L (3.5-5.1); Sodium 132 mmol/L (136-145)
--- NOTE | 2018-05-18 09:08 | RAD ---
CHEST 1 VIEW PORTABLE: Date: 05/18/18 HISTORY: Follow-up pneumonia. COMPARISON: 05/17/18. FINDINGS: Monitor leads overlie the chest. Postop midline sternotomy. Bilateral alveolar parenchymal changes in the infrahilar regions and lower lobes with bilateral pleural effusions, evidence for bilateral pneu monia. The upper lung zones are clear. IMPRESSION: Bilateral lower lobe confluent lobar pneumonia with associated pleural effusions. Continue short-term follow-up for clearing. POS: [facility]
[2018-05-18] MEDS ORDERED: Amiodarone 200 MG TAB PO SCH (10:45)
[2018-05-18] MEDS ORDERED: Carvedilol 3.125 MG TAB PO SCH (10:45)
[2018-05-18] MEDS: Famotidine 20 MG TAB PO SCH ×2 (11:00→20:25)
[2018-05-18] MEDS: HumaLOG 300 UNITS/3 ML VIAL SC PRN ×3 (11:01→20:20)
[2018-05-18] MEDS: Sodium Chloride 0.45% 1,000 ML IV SCH (11:01)
[2018-05-18] MEDS ORDERED: hydrALAZINE 20 MG/ML VIAL SLOW IVP PRN (12:29)
[2018-05-18] MEDS ORDERED: Diltiazem HCl CD 300 mg Capsule PO SCH (13:15)
--- NOTE | 2018-05-18 14:59 | CON ---
DATE OF CONSULTATION: HISTORY OF PRESENT ILLNESS: The patient is a 62-year-old gentleman who presents with recurrent chest discomfort. The patient has a previous history of coronary artery disease status post coronary bypass graft surgery in 2009. He had a MORRIS placed to the LAD, saphenous vein graft to the ramus and diagonal graft and RCA. The patient had a repeat catheterization in 2010 revealed occluded grafts. He subsequently underwent PTCA and stent placement into the ramus graft. The patient also has a history of atrial fibrillation, was previously placed on Xarelto. He has undergone a previous atrial flutter ablation. The patient was most recently admitted with dyspnea, nausea and vomiting. He was placed on amiodarone. The patient presents with left-sided chest discomfort. He reports having a left-sided discomfort that started yesterday. He has been incarcerated and had been under a great deal of stress. The discomfort lasted about 8 hours and eventually resolved. The patient denies having any present chest discomfort. PAST MEDICAL HISTORY: Significant for: 1. Coronary artery disease. 2. Hypertension. 3. Diabetes mellitus. 4. Renal insufficiency. 5. Status post bilateral AKA. 6. Atrial fibrillation. PAST SURGICAL HISTORY: 1. Previous coronary bypass surgery. 2. Aortobifemoral bypass. 3. Bilateral AKA. 4. Back surgery. MEDICATIONS: See nursing list. ALLERGIES: NONE. SOCIAL HISTORY: Long history of illicit drug use and tobacco use. FAMILY HISTORY: Positive family history of heart disease. REVIEW OF SYSTEMS: [place] point system otherwise unremarkable. PHYSICAL EXAMINATION: GENERAL: This is a middle-aged gentleman, no acute distress with a blood pressure of 188/87. NECK: Showed no jugular venous distention. LUNGS: Clear to auscultation. HEART: Regular rate and rhythm with a normal S1 and S2. ABDOMEN: Nondistended. EXTREMITIES: Show status post bilateral AKA. LABORATORY RESULTS: His white blood cell count is 11.8, hemoglobin 8.6, hematocrit 27.1, and his platelets are 283. Sodium is 132, potassium 4.5, chloride 106, bicarbonate 20, BUN 21, creatinine 1.97. His troponin was 0.037. White blood cell count 11.8, hemoglobin 8.6, hematocrit 27.1, and his platelets are 283. INR was 3.8. IMAGING: His EKG revealed sinus bradycardia with a nonspecific ST abnormality. IMPRESSION: 1. Chest pain. 2. History of coronary artery bypass surgery. 3. Status post percutaneous transluminal coronary angioplasty and stent placed. 4. Hypertension. 5. Diabetes mellitus. 6. Chronic renal insufficiency. 7. History of atrial flutter. 8. Tobacco abuse. This gentleman presents with chest discomfort. He is markedly anemic. He may need to undergo a GI evaluation with his low hemoglobin. At this time, we will add hydralazine and Isordil to lower his blood pressure. With the patient's renal insufficiency, we will try to treat the patient medically unless his chest pain becomes refractory. We will follow this patient with you through his hospitalization. Job ID: [id number]
[2018-05-18] MEDS: Carvedilol 3.125 MG TAB PO SCH (16:23)
[2018-05-18] MEDS: hydrALAZINE 25 MG TAB PO SCH ×2 (16:24→20:24)
[2018-05-18] MEDS: Isosorbide Dinitrate 5 MG TAB PO SCH ×2 (16:24→20:25)
--- NOTE | 2018-05-18 20:11 | PRG ---
DATE OF SERVICE: 05/18/2018 SUBJECTIVE: Mr. Prudencio Calderon is a 62-year-old male with past medical history significant for type 2 diabetes mellitus, hyperlipidemia, coronary artery disease, status post CABG, status post left heart catheterization in 2010, which showed occluded grafts with a stent to the ramus at that time, stage 3-4 kidney disease, and bilateral [id number]-gsd-[id number] amputation, who presented from [facility] with complaints of chest pain. He describes the pain as a pressure or someone sitting on his chest, it did improve with nitroglycerin. This morning, he is resting comfortably. He denies any chest discomfort at this time. He denies any shortness of breath. He denies any nausea or vomiting. OBJECTIVE: VITAL SIGNS: Blood pressure 156/80, pulse 89, the patient is afebrile, O2 saturation is 98% on room air. GENERAL: The patient is resting comfortably. He is pain-free and alert and oriented x3. HEENT: Atraumatic, normocephalic. Extraocular muscles are intact. Mucous membranes moist. NECK: Trachea is midline. No JVD. No lymphadenopathy. RESPIRATORY: Regular respiratory rate and pattern. Clear to auscultation bilateral. CV: Regular rate and rhythm. No appreciable murmurs, rubs, or gallops. ABDOMEN: Positive bowel sounds. Nontender. EXTREMITIES: Bilateral amputation, above the knee. NEUROLOGIC: Cranial nerves 2 through 12 are grossly intact. No focal deficits. SKIN: Warm, dry, normal in color. LABORATORY DATA: White blood cell count 11.8, hemoglobin 8.6, hematocrit 27.1, platelets 283. Chemistry; sodium 132, potassium 4.5, chloride 106, anion gap 11 , BUN 21, creatinine 1.97. Troponin indeterminate at 0.047. ASSESSMENT: 1. Chest pain consistent with angina in a patient with known coronary artery disease. 2. Triple-vessel coronary artery disease, status post CABG, status post stents. 3. Hypertension. 4. Stage 3 chronic kidney disease, likely combined hypertension and diabetic nephropathy. 5. Bilateral hbpce-flc-pler amputation. 6. Iron deficiency anemia, with a profound drop in Hgb, which was around 14 in March, and is now 8 7. paroxyxmal atrial flutter, CHADS VASc= 5, on anticoagulation therapy with Xarelto prior to admission PLAN: Given his profound anemia and elevated INR on admission, continue to hold all anticoagulation Cardiology has consulted and appreciate recommendations. Hydralazine and Isordil for blood pressure control per cardiology. Will consult GI in the a.m. Care discussed with Dr. Yates, who agrees. Job ID: [id number] MTDD
[2018-05-18] MEDS: Amitriptyline HCl 25 MG TAB PO SCH (20:24)
[2018-05-18] MEDS: Gabapentin 100 MG CAP PO SCH (20:25)
[2018-05-18] MEDS: Rosuvastatin 20 MG TAB PO SCH (20:25)
[2018-05-19 05:27] LABS: #Basophils 0.1 thou/uL (0.0-0.2); #Eosinphils 0.5 thou/uL (0.0-0.7); #Lymphocytes 2.9 thou/uL (1.20-3.40); #Monocytes 1.5 thou/uL (0.11-0.59); %Basophils 0.7 % (0.0-1.0); %Eosinophils 4.1 % (0.0-10.0); %Lymphocytes 24.2 % (21.0-51.0); %Monocytes 12.6 % (0.0-10.0); %Neutrophils 58.4 % (42.0-75.0); Hemoglobin 8.1 g/dL (14.0-18.0); Mean Corpuscular HGB CONC 31.5 g/dL (32.0-36.0); Mean Corpuscular Hemoglobin 26.7 pg (27.0-31.0); Mean Corpuscular Volume 84.9 fL (78.0-98.0); Platelet Count 299 thou/uL (130-400); RBC Distribution Width 13.7 % (11.5-14.5); Red Blood Cell (RBC) Count 3.03 mill/uL (4.70-6.10); White Blood Cell (WBC) Count 11.9 thou/uL (4.8-10.8)
[2018-05-19 05:52] LABS: Anion Gap 10 mmol/L (10-20); BUN (Urea Nitrogen) 19 mg/dL (8.4-25.7); Calc. Creatinine Clearance 40 mL/min (70-130); Calcium 8.3 mg/dL (7.8-10.44); Carbon Dioxide 19 mmol/L (22-29); Chloride 107 mmol/L (98-107); Estimated GFR-MDRD 44; Glucose 144 mg/dL (70-105); Sodium 132 mmol/L (136-145)
[2018-05-19 08:48] LABS: Iron 17 ug/dL (65-175); Iron Binding Capacity, Total 325 mcg/dL (261-462)
[2018-05-19] MEDS ORDERED: Diltiazem HCl CD 300 mg Capsule PO SCH (09:00)
[2018-05-19 09:05] LABS: INR-International Normal Ratio 1.3; PTT 36.8 SEC (22.9-36.1); Prothrombin Time 16.5 SEC (12.0-14.7)
[2018-05-19] MEDS: Amiodarone 200 MG TAB PO SCH (09:05)
[2018-05-19] MEDS: hydrALAZINE 25 MG TAB PO SCH ×3 (09:05→21:02)
[2018-05-19] MEDS: Aspirin 81 mg Enteric Coated Tablet PO SCH (09:05)
[2018-05-19] MEDS: Gabapentin 100 MG CAP PO SCH ×2 (09:06→20:59)
[2018-05-19] MEDS: Famotidine 20 MG TAB PO SCH ×2 (09:06→20:59)
[2018-05-19] MEDS: Carvedilol 3.125 MG TAB PO SCH ×2 (09:07→16:01)
[2018-05-19] MEDS: Isosorbide Dinitrate 5 MG TAB PO SCH ×3 (09:07→20:59)
[2018-05-19] MEDS: Diltiazem HCl CD 300 mg Capsule PO SCH (09:08)
[2018-05-19 09:32] LABS: Folate (Folic Acid) 12.9 ng/mL (7.0-31.4)
[2018-05-19] MEDS ORDERED: Nitroglycerin 4.9 GM Bottle ONE (11:11)
[2018-05-19] MEDS ORDERED: GoLYTELY 4,000 ml Bottle PO SCH (11:15)
--- NOTE | 2018-05-19 11:27 | CON ---
DATE OF CONSULTATION: 05/19/2018 REASON FOR CONSULTATION: Anemia. HISTORY OF PRESENT ILLNESS: Prudencio Calderon is a 62-year-old man, currently incarcerated, who was admitted 2 days ago with progressive chest pain and shortness of breath. He has been having increasing fatigue and dyspnea on exertion over the past couple of months or so. He has a significant history of coronary artery disease with coronary artery bypass graft and stents placed, and is undergoing some cardiac evaluation. Notably, admission laboratory studies have demonstrated his hemoglobin has declined over the past couple of months, back in March, it was over 14 and now it is 8.1. This is in the context of long-term Xarelto use for atrial fibrillation. His Xarelto was held on hospital admission. His INR was 3.8 on admission and this declined down to 1.3. Iron studies do show iron deficiency with iron level of 17. The patient reports that he has had no overt bleeding from anywhere. He denies epistaxis, hematemesis, melena, hematochezia, or gross hematuria. He has no symptoms of abdominal pain, nausea, or vomiting. There is no known family history of gastrointestinal malignancy. He believes he had a colonoscopy probably 10 years ago here, but I cannot find that in our system. He did see my GI colleague, Dr. Marco Glynn years ago for hepatitis C. Today, currently, he has no complaints of any chest pain or shortness of breath and is essentially asymptomatic. REVIEW OF SYSTEMS: Full review of systems including constitutional, head, eyes, ears, nose, throat, GI, , cardiovascular, respiratory, musculoskeletal, neurologic systems is negative except as noted in the HPI. PAST MEDICAL HISTORY: Atrial fibrillation, atrial flutter ablation, coronary artery bypass graft in 2009, coronary artery disease with multiple stents placed, hypertension, diabetes, chronic renal insufficiency, peripheral vascular disease, bilateral bsizt-orc-ddgg amputation, aortobifemoral bypass, and back surgery. ALLERGIES: NO KNOWN DRUG ALLERGIES. OUTPATIENT MEDICATIONS: 1. Crestor. 2. Prednisone. 3. Cefdinir. 4. Carvedilol. 5. Diltiazem. 6. Tessalon [place]. 7. Amitriptyline. 8. Xarelto. 9. Nitroglycerin. 10. Amiodarone. 11. Tylenol. 12. Dulcolax. FAMILY HISTORY: Noncontributory. SOCIAL HISTORY: He evidently has a long history of tobacco and drug abuse. PHYSICAL EXAMINATION: VITAL SIGNS: Temperature 98.0, pulse 97, blood pressure 139/71, and 98% oxygen saturation on room air. GENERAL: A 62-year-old man, lying in bed comfortably, in no acute distress. MENTAL: Alert and fully oriented. SKIN: No jaundice. No rashes were palpable. HEENT: Eyes, no scleral icterus. Extraocular movements intact. ENT, mucous membranes moist. No oral lesions. LYMPH: No submandibular or supraclavicular lymphadenopathy. THYROID: Nontender to palpation. HEART: Regular rate and rhythm. LUNGS: Bibasilar crackles. No respiratory distress. ABDOMEN: Bowel sounds present. Soft and nontender to palpation. EXTREMITIES: He is status post bilateral osjth-afh-buvr amputation. No edema. LABORATORY STUDIES: Hemoglobin is 8.1, MCV 84.9, WBC 11.9, and platelets 299. INR initially 3.8, now down to 1.3, BUN 19, creatinine 1.91, sodium 132, and potassium 4.0. Iron 17, TIBC 325, vitamin B12 normal at 328, and folic acid normal at 12.9. IMAGING STUDIES: Chest x-ray showed bilateral lower lobe pneumonia with pleural effusions. ASSESSMENT AND PLAN: 1. Iron-deficiency anemia, with significant decline in hemoglobin of over 6 points over the past 2 months. 2. Atrial fibrillation, on long-term anticoagulation with Xarelto, held on hospital admission 2 days ago. 3. Coronary artery disease. 4. Chest pain, resolved today. The patient has indeed had a significant decline in hemoglobin just over the past couple of months, in the context of Xarelto use, with no overt bleeding noted over this time. An occult gastrointestinal bleeding lesion would certainly leave the differential in this case. Further investigation is warranted with esophagogastroduodenoscopy and colonoscopy. The patient is chest pain free today, though still undergoing some further cardiac workup. Assuming he is cleared on that front, we will plan to proceed with esophagogastroduodenoscopy and colonoscopy tomorrow after bowel preparation this evening. I discussed this in detail with the patient and he desires to proceed. Xarelto was held on admission, so should be able to do procedure without increased risk of bleeding complication. Thank you for the consultation. Please call anytime with questions or concerns. Job ID: [id number]
[2018-05-19] MEDS ORDERED: Regadenoson 0.4 MG/5 ML SYRINGE ONE (11:48)
--- NOTE | 2018-05-19 15:28 | NM ---
CARDIAC SPECT WITH EJECTION FRACTION AND WALL MOTION: Date: 05/19/18 HISTORY: Chest pain, coronary artery disease, coronary artery bypass graft, congestive heart failure. TECHNIQUE: Patient was injected with 28 mCi technetium-99m sestamibi intravenously for stress images and patient was injected with 9.0 mCi technetium-99m sestamibi intravenously for resting images. Lexiscan sestam ibi study performed. FINDINGS: Multiple short axis, vertical long axis, and horizontal long axis SPECT images are performed and demo nstrate no areas of abnormal infarct or ischemia. TID: 1.08 LHR: 0.34 EDV: 122 mL EF: 41% MYOCARDIAL PERFUSION WALL MOTION: There is some dyskinesis in the septum near the base. IMPRESSION: No scan evidence for acute ischemia. Dyskinesis in the septum near the heart base. Ejection fraction 41%. EDV 122 mL. POS: [facility]
[2018-05-19] MEDS: HumaLOG 300 UNITS/3 ML VIAL SC PRN (17:09)
--- NOTE | 2018-05-19 17:37 | PRG ---
DATE OF SERVICE: 05/19/2018 SUBJECTIVE: Mr. Prudencio Calderon is a 62-year-old male with past medical history significant for type 2 diabetes mellitus; hyperlipidemia; coronary artery disease, status post CABG, status post left heart catheterization in 2010, which showed occluded grafts with a stent to the ramus at that time; stage 3 to 4 kidney disease; and bilateral gootz-lwu-bqvw amputations, who presented from [facility] with complaints of chest pain. On presentation, he described the pain as pressure with resolution with nitroglycerin. Upon my interview, this morning, he has had no further chest discomfort. He denies any recent blood in his stools, nosebleeds, or overt signs of bleeding. He denies any nausea and vomiting. At this time, he denies any shortness of breath. OBJECTIVE: VITAL SIGNS: Blood pressure 133/70, O2 saturation is 97% on room air, respirations 16, pulse is 97, and temperature 98.4. GENERAL: The patient is resting comfortably. He is pain free. Alert and oriented x3. HEENT: Atraumatic and normocephalic. Extraocular muscles are intact. Mucous membranes moist. NECK: Trachea is midline. No JVD. No lymphadenopathy. RESPIRATORY: Regular respiratory rate and pattern. Clear to auscultation bilaterally. CV: Regular rate and rhythm. No appreciable murmurs, rubs, or gallops. ABDOMEN: Positive bowel sounds. Soft, nontender. EXTREMITIES: Bilateral pvdks-net-prdg amputations. NEUROLOGIC: Cranial nerves 2 through 12 are grossly intact. No focal deficits. SKIN: Warm, dry, normal in color. LABORATORY DATA: White blood cell count 11.9, hemoglobin 8.1, and HCT 25.7. PT 16.5, INR 1.3, and APTT 36.8. Sodium 132, potassium 4, chloride 107, carbon dioxide 19, anion gap 10, BUN 19, and creatinine 1.91. Iron is 17, TIBC 325, vitamin B12 of 328, and folate 12.9. ASSESSMENT AND PLAN: 1. Chest pain, consistent with angina in a patient with known coronary artery disease, no chest pain this morning, stress test results pending. 2. Triple-vessel coronary artery disease, status post coronary artery bypass grafting, status post stents. 3. Iron deficiency anemia with a profound drop in hemoglobin, which was around 14 in March and is now 8. 4. Stage 3 chronic kidney disease, likely combined hypertension and diabetic nephropathy. 5. Paroxysmal atrial flutter, CHADS-VASc equals 5, previously on anticoagulation therapy with Xarelto, which he was on prior to admission. 6. Bilateral zzncu-ugg-oyco amputee. PLAN: GI has consulted and appreciate recommendations. I spoke to Dr. Ramesh, and plan will be for colonoscopy after cardiac clearance and workup is complete. Dr. Morales to see the patient tomorrow. If cleared, likely colonoscopy, this hospitalization. The patient's blood pressure was much improved and we will continue current regimen. We will obtain labs in the morning. Given the complexity and comorbidities of this patient, he meets inpatient status and will change accordingly. Care discussed with Dr. Yates, who agrees with current management. Job ID: [id number] MTDD
[2018-05-19] MEDS: Amitriptyline HCl 25 MG TAB PO SCH (20:59)
[2018-05-19] MEDS: Rosuvastatin 20 MG TAB PO SCH (20:59)
[2018-05-20 06:10] LABS: #Basophils 0.1 thou/uL (0.0-0.2); #Eosinphils 0.3 thou/uL (0.0-0.7); #Lymphocytes 2.1 thou/uL (1.20-3.40); #Monocytes 1.8 thou/uL (0.11-0.59); #Neutrophils 8.6 thou/uL (1.40-6.50); %Basophils 0.4 % (0.0-1.0); %Eosinophils 2.6 % (0.0-10.0); %Lymphocytes 16.6 % (21.0-51.0); %Monocytes 14.2 % (0.0-10.0); %Neutrophils 66.2 % (42.0-75.0); Hemoglobin 7.8 g/dL (14.0-18.0); Mean Corpuscular Hemoglobin 26.5 pg (27.0-31.0); Mean Corpuscular Volume 85.4 fL (78.0-98.0); Mean Platelet Volume 8.6 fL (7.4-10.4); Platelet Count 301 thou/uL (130-400); RBC Distribution Width 13.7 % (11.5-14.5); Red Blood Cell (RBC) Count 2.96 mill/uL (4.70-6.10); White Blood Cell (WBC) Count 12.9 thou/uL (4.8-10.8)
[2018-05-20 06:29] LABS: Anion Gap 11 mmol/L (10-20); BUN (Urea Nitrogen) 17 mg/dL (8.4-25.7); Calc. Creatinine Clearance 37 mL/min (70-130); Calcium 8.4 mg/dL (7.8-10.44); Carbon Dioxide 17 mmol/L (22-29); Chloride 108 mmol/L (98-107); Estimated GFR-MDRD 41; Glucose 118 mg/dL (70-105); Potassium 4.3 mmol/L (3.5-5.1); Sodium 132 mmol/L (136-145)
[2018-05-20] MEDS: Carvedilol 3.125 MG TAB PO SCH ×2 (09:03→17:49)
[2018-05-20] MEDS: hydrALAZINE 25 MG TAB PO SCH ×3 (09:03→22:07)
[2018-05-20] MEDS: Isosorbide Dinitrate 5 MG TAB PO SCH ×3 (09:03→22:07)
[2018-05-20] MEDS: Gabapentin 100 MG CAP PO SCH ×2 (09:03→22:07)
[2018-05-20] MEDS: Amiodarone 200 MG TAB PO SCH (09:04)
[2018-05-20] MEDS: Famotidine 20 MG TAB PO SCH ×2 (09:04→22:07)
[2018-05-20] MEDS: Diltiazem HCl CD 300 mg Capsule PO SCH (09:04)
[2018-05-20] MEDS: Aspirin 81 mg Enteric Coated Tablet PO SCH (09:04)
--- NOTE | 2018-05-20 10:24 | PDOC.PN ---
- Subjective Encounter Start Date: 05/20/18 Encounter Start Time: 11:00 Subjective: Patient without chest pain. No bleeding. No active complaints. - Objective MAR Reviewed: Yes Vital Signs & Weight: Vital Signs (12 hours) Temp Pulse Resp BP BP Pulse Ox 05/20/18 09:03 110 H 139/80 05/20/18 07:21 99.4 F 109 H 16 134/62 97 05/20/18 05:10 99.9 F H 106 H 23 H 144/73 H 95 Weight Weight 150 lb 3.2 oz I&O: 05/19/18 05/20/18 05/21/18 06:59 06:59 06:59 Intake Total 1810 920 Output Total 2700 1250 Balance -890 -330 Result Diagrams: 05/20/18 05:57 05/20/18 05:57 Additional Labs: Accuchecks 05/20/18 05/19/18 05/19/18 05:44 20:23 16:58 POC Glucose 134 H 188 H 331 H 05/19/18 10:45 POC Glucose 240 H Phys Exam - Physical Examination Constitutional: NAD HEENT: moist MMs Respiratory: no wheezing, no rales, no rhonchi, clear to auscultation bilateral Cardiovascular: RRR, no significant murmur Gastrointestinal: soft, non-tender, positive bowel sounds Bilateral AKA, stumps well healed without ulceration Psychiatric: normal affect, A&O x 3 Dx/Plan (1) Chest pain Code(s): R07.9 - CHEST PAIN, UNSPECIFIED Status: Resolved (2) CAD (coronary artery disease) Code(s): I25.10 - ATHSCL HEART DISEASE OF [place] CORONARY ARTERY W/O ANG PCTRS Status: Chronic Qualifiers: Coronary Disease-Associated Artery/Lesion type: bypass graft Comment: stent since bipass, stress test without evidence acute ischemia (3) Iron deficiency anemia due to chronic blood loss Code(s): D50.0 - IRON DEFICIENCY ANEMIA SECONDARY TO BLOOD LOSS (CHRONIC) Status: Acute Comment: Hgb dropped 6 points in 2 months, Xarelto on hold, EGD and colonoscopy planned for Sunday (4) Atrial fibrillation Code(s): I48.91 - UNSPECIFIED ATRIAL FIBRILLATION Status: Chronic Qualifiers: Atrial fibrillation type: paroxysmal Qualified Code(s): I48.0 - Paroxysmal atrial fibrillation Comment: Xarelto on hold (5) CKD (chronic kidney disease) stage 3, GFR 30-59 ml/min Code(s): N18.3 - CHRONIC KIDNEY DISEASE, STAGE 3 (MODERATE) Status: Chronic Comment: stable - Plan cont current plan of care, out of bed/ambulate Plan for EGD/Colon tomorrow. * . - Discharge Day Encounter end time: 11:10
--- NOTE | 2018-05-20 11:31 | PRG ---
DATE OF SERVICE: 05/20/2018 SUBJECTIVE: Mr. Calderon is feeling all right. No chest pain yet today. He was evaluated by Cardiology and the decision was made not to proceed with catheterization. He has been cleared for EGD and colonoscopy. OBJECTIVE: VITAL SIGNS: Temperature 99.4, pulse 110, blood pressure 139/80, and 97% oxygen saturation on room air. GENERAL: No acute distress. HEART: Regular, tachycardia. LUNGS: Clear to auscultation bilaterally. ABDOMEN: Soft and nontender to palpation. LABORATORY STUDIES: Hemoglobin 7.8, WBC 12.9, and platelets 301. INR 1.3. Sodium 132, potassium 4.3, BUN 17, and creatinine 2.03. ASSESSMENT AND PLAN: 1. Iron-deficiency anemia, with significant decline in hemoglobin over 6 points over the past 2 months. 2. Atrial fibrillation, on long-term anticoagulation with Xarelto, held on hospital admission 3 days ago. 3. Coronary artery disease. 4. Chest pain, currently resolved. The patient has been cleared for endoscopy by Cardiology. Evidently, no cardiac catheterization is planned. I discussed this with the patient. We will proceed with esophagogastroduodenoscopy and colonoscopy tomorrow after bowel preparation this evening. Further recommendations to depend upon endoscopy findings. Job ID: [id number]
[2018-05-20] MEDS ORDERED: Acetaminophen 325 MG TAB PO PRN (16:04)
[2018-05-20] MEDS ORDERED: GoLYTELY 4,000 ml Bottle PO SCH (18:00)
[2018-05-20] MEDS: Amitriptyline HCl 25 MG TAB PO SCH (22:07)
[2018-05-20] MEDS: Rosuvastatin 20 MG TAB PO SCH (22:07)
[2018-05-21] MEDS ORDERED: Lidocaine 1% PF 5 ML VIAL ONE (08:30)
[2018-05-21] MEDS ORDERED: PROPOFOL 200 MG/20 ML VIAL ONE (08:30)
[2018-05-21] MEDS: Amiodarone 200 MG TAB PO SCH (09:33)
[2018-05-21] MEDS: Carvedilol 3.125 MG TAB PO SCH ×2 (09:33→19:28)
[2018-05-21] MEDS: hydrALAZINE 25 MG TAB PO SCH ×3 (15:40→21:24)
[2018-05-21] MEDS: Isosorbide Dinitrate 5 MG TAB PO SCH ×3 (15:40→21:25)
--- NOTE | 2018-05-21 16:02 | OP ---
DATE OF PROCEDURE: 05/21/2018 PREPROCEDURE DIAGNOSIS: Iron-deficiency anemia. POSTPROCEDURE DIAGNOSES: 1. Esophagogastroduodenoscopy normal. 2. Colonoscopy with firm 3 cm mass in the ascending colon consistent with colonic malignancy, biopsied and tattooed. RECOMMENDATIONS: 1. CT scan of the abdomen, pelvis, and chest for staging. 2. CTA. 3. Surgical consultation. ANESTHESIA: TIVA. DESCRIPTION OF PROCEDURE: The patient was informed of the risks, benefits, possible complication of endoscopy including perforation, reaction to medication and aspiration, informed consent was obtained. The patient was brought to the endoscopy suite, where he was sedated in gradual fashion. Once he was comfortable, a bite block was placed inside his orifice. The endoscope was advanced to the esophagus, stomach, and the second and third portion of duodenum and slowly removed. The esophagus was normal. The stomach was normal. The duodenum was normal. Retroflexed views in the stomach were normal. The stomach was then desufflated. The patient was returned to the room and rectal examination performed, which was normal. The endoscope was advanced through the anal canal through the colon to the cecum, which was identified by the ileocecal valve and appendiceal orifice. The prep was poor. Over 2 L of fluid used to irrigate the colon and prep was still poor. A mass was found in a region of the ascending colon about 100 cm from the anorectal verge. Due to the prep, it was really impossible to tell where exactly this is, but I estimated somewhere on the hepatic flexure. It was biopsied and that was tattooed distal to the lesion. No other lesions were seen. The scope was removed from the remainder of the colon and retroflexion was performed revealing normal anorectal verge. The scope was then readvanced to the cecum and then slowly removed again with no other lesions seen. Retroflexed views again in the rectum were again normal. The scope was removed. The patient tolerated the procedure well. He was brought to recovery room in stable condition. Job ID: [id number]
[2018-05-21] MEDS: Famotidine 20 MG TAB PO SCH ×2 (16:14→21:25)
[2018-05-21] MEDS: Gabapentin 100 MG CAP PO SCH ×2 (16:15→21:24)
[2018-05-21] MEDS: Diltiazem HCl CD 300 mg Capsule PO SCH (16:15)
[2018-05-21] MEDS: Aspirin 81 mg Enteric Coated Tablet PO SCH (16:15)
--- NOTE | 2018-05-21 17:25 | PDOC.PN ---
- Subjective Encounter Start Date: 05/21/18 Encounter Start Time: 17:23 Mr. Calderon was seen today in follow-up of chest pain and iron deficiency anemia. He is back for colonoscopy and endoscopy. He does not have any new complaints. - Objective MAR Reviewed: Yes Vital Signs & Weight: Vital Signs (12 hours) Temp Pulse Resp BP Pulse Ox 05/21/18 09:35 99.7 F H 106 H 16 134/73 96 Weight Weight 150 lb 3.2 oz I&O: 05/20/18 05/21/18 05/22/18 06:59 06:59 06:59 Intake Total 920 1540 Output Total 1250 1220 Balance -330 320 Result Diagrams: 05/20/18 05:57 05/20/18 05:57 Additional Labs: Accuchecks 05/21/18 05/21/18 05/21/18 16:58 11:06 05:28 POC Glucose 204 H 142 H 145 H 05/20/18 21:05 POC Glucose 168 H Phys Exam - Physical Examination HEENT: PERRLA Respiratory: no wheezing, no rales, no rhonchi, clear to auscultation bilateral Cardiovascular: RRR, no significant murmur, no rub Gastrointestinal: soft, non-tender, no distention, positive bowel sounds Musculoskeletal: no edema Dx/Plan (1) Iron deficiency anemia due to chronic blood loss Code(s): D50.0 - IRON DEFICIENCY ANEMIA SECONDARY TO BLOOD LOSS (CHRONIC) Status: Acute Comment: Hgb dropped 6 points in 2 months, Xarelto on hold, EGD and colonoscopy planned for Sunday (2) Atrial fibrillation Code(s): I48.91 - UNSPECIFIED ATRIAL FIBRILLATION Status: Chronic Qualifiers: Atrial fibrillation type: paroxysmal Qualified Code(s): I48.0 - Paroxysmal atrial fibrillation Comment: Xarelto on hold (3) CAD (coronary artery disease) Code(s): I25.10 - ATHSCL HEART DISEASE OF [place] CORONARY ARTERY W/O ANG PCTRS Status: Chronic Qualifiers: Coronary Disease-Associated Artery/Lesion type: bypass graft Comment: stent since bipass, stress test without evidence acute ischemia (4) DM2 (diabetes mellitus, type 2) Status: Chronic Comment: (5) HTN (hypertension) Code(s): I10 - ESSENTIAL (PRIMARY) HYPERTENSION Status: Chronic - Plan * Iron deficiency Anemia- colonoscopy results were noted. He was found to have a colon mass. This has serge biopsied, and awaiting path results * Iron deficiency anemia- will start iron supplementation * DM- blood glucose is stable * CAD- stable .
[2018-05-21] MEDS ORDERED: cefOXitin 2 GM in Sodium Chloride 0.9% 100 ML IVPB SCH (18:00)
[2018-05-21] MEDS ORDERED: Magnesium Citrate 300 ML BOT PO SCH (18:00)
[2018-05-21] MEDS ORDERED: metroNIDAZOLE 500 MG in Premix Bag 1 BAG IVPB SCH (18:00)
[2018-05-21] MEDS: Amitriptyline HCl 25 MG TAB PO SCH (21:24)
[2018-05-21] MEDS: Rosuvastatin 20 MG TAB PO SCH (21:25)
[2018-05-21] MEDS: HumaLOG 300 UNITS/3 ML VIAL SC PRN (21:26)
--- NOTE | 2018-05-21 21:32 | CON ---
DATE OF CONSULTATION: HISTORY OF PRESENT ILLNESS: Prudencio Calderon is a 62-year-old black male, bilateral amputee, currently incarcerated for the past 2 weeks in the [facility]. He was admitted to this hospitalization on 05/17/2018 with anemia, admitted for chest pain anemia. He has chronic kidney disease, creatinine of 2.27, which is baseline for him, often this higher; BNP 615; hemoglobin 8.5. The patient has known coronary artery disease, had troponins ordered, which were slightly elevated, but as noted above, he does have CKD. Dr. Guo has seen him. The patient reports having had a past colonoscopy. In this hospitalization, he did have a cardiac stress test, noting the ejection fraction of 40%, septal dyskinesis, no ischemia. He has had a coronary artery bypass grafting years past. The patient was seen in consultation by Dr. Baudilio Ramesh on 05/19/2018. The patient believes he had a colonoscopy 10 years prior. He has seen Dr. Glynn in the past for hepatitis C. The patient underwent colonoscopy, poor right colon prep, suspect tumor mass 3 to 4 cm, hepatic flexure area, tattooed proximally by Dr. Mo. I have been asked to see him regarding colon resection. The patient denies having past abdominal operations. I have talked to Dr. Morales. The patient is probably as good as he is going to be from a cardiac standpoint and he is stable with minimal risks from a cardiac standpoint given his recent cardiac stress test. Tobacco cessation 3 months ago, half pack a day prior, alcohol none prior to incarceration. MEDICATIONS: 1. Glucotrol 2.5 mg IM. 2. Crestor 20 mg at bedtime. 3. Xarelto 15 mg daily. 4. Nitroglycerin p.r.n. 5. Gabapentin 100 mg b.i.d. 6. Diltiazem 300 mg daily. 7. Carvedilol (Coreg) 3.125 mg b.i.d. with meals. 8. Amitriptyline 25 mg at bedtime. 9. Amiodarone 200 mg daily. 10. Tylenol p.r.n. pain. PAST SURGICAL HISTORY: Colonoscopy today revealing the above problems. Colonoscopy [place] [address] Giullen, diverticulosis. June 2007, excision of right face mass. September 20, 2007, Dr. Riley Cardenas, right femoral to [id number] popliteal artery bypass with [place] graft. June 04, 2008, L4-L5 partial hemilaminectomy and microdiskectomy, Dr. Yoel Romero. April 23, 2009, coronary artery bypass grafting, 4-vessels, reverse saphenous vein. January 12, 2011, Dr. Riley Cardenas, right below-knee amputation. March 16, 2011, debridement of right BKA stump. March 06, 2011, right AKA, Dr. Riley Cardenas, left AKA in [place]. PAST MEDICAL HISTORY: Diabetes mellitus type 2, PAD, coronary artery disease, right colon cancer, anemia, chronic kidney disease, elevated cholesterol. PHYSICAL EXAMINATION: HEAD, EARS, EYES, NOSE AND THROAT: Unremarkable. LUNGS: Clear to auscultation. CARDIAC: Regular rate and rhythm. No murmur or gallop. ABDOMEN: Soft and nontender. No masses. No hernias. EXTREMITIES: Bilateral AKA. LABORATORY DATA: White count 12, hemoglobin 7.8. Glucose is 124 to 204, sodium 132, chloride 108, and creatinine 2.03. ASSESSMENT AND PLAN: 1. Right colon cancer, pathology and biopsy pending. This is nonresectable mass. We would recommend laparoscopic right colectomy. He understands risks and benefits, consents. We will plan this tomorrow. Risks of infection, bleeding, reoperation, anastomotic leakage explained, he consents. 2. Coronary artery disease. Discussed with Dr. Андрей Morales as above, stress test this hospitalization. 3. Chronic anticoagulation, on Xarelto, held this hospitalization. 4. Chronic kidney disease. 5. Diabetes mellitus. 6. Hypertension. 7. PAD. Status post bilateral AKA, previous femoral-popliteal. Job ID: [id number]
[2018-05-22] MEDS ORDERED: Sodium Chloride 0.9% 1,000 ML IV SCH (06:00)
[2018-05-22 06:41] LABS: Hemoglobin 7.6 g/dL (14.0-18.0); Mean Corpuscular HGB CONC 31.2 g/dL (32.0-36.0); Mean Corpuscular Hemoglobin 26.5 pg (27.0-31.0); Mean Corpuscular Volume 84.9 fL (78.0-98.0); Mean Platelet Volume 9.2 fL (7.4-10.4); Platelet Count 292 thou/uL (130-400); RBC Distribution Width 13.9 % (11.5-14.5); Red Blood Cell (RBC) Count 2.89 mill/uL (4.70-6.10); White Blood Cell (WBC) Count 10.3 thou/uL (4.8-10.8)
[2018-05-22 07:24] LABS: Anion Gap 13 mmol/L (10-20); BUN (Urea Nitrogen) 15 mg/dL (8.4-25.7); Calc. Creatinine Clearance 38 mL/min (70-130); Calcium 8.2 mg/dL (7.8-10.44); Carbon Dioxide 17 mmol/L (22-29); Chloride 106 mmol/L (98-107); Estimated GFR-MDRD 42; Glucose 124 mg/dL (70-105); Potassium 3.8 mmol/L (3.5-5.1); Sodium 132 mmol/L (136-145)
[2018-05-22] MEDS: Isosorbide Dinitrate 5 MG TAB PO SCH ×3 (08:48→21:15)
[2018-05-22] MEDS: Amiodarone 200 MG TAB PO SCH (08:48)
[2018-05-22] MEDS: hydrALAZINE 25 MG TAB PO SCH ×3 (08:48→21:16)
[2018-05-22] MEDS: Aspirin 81 mg Enteric Coated Tablet PO SCH (08:48)
[2018-05-22] MEDS: Diltiazem HCl CD 300 mg Capsule PO SCH (08:48)
[2018-05-22] MEDS: Carvedilol 3.125 MG TAB PO SCH ×2 (08:48→21:14)
[2018-05-22] MEDS: Gabapentin 100 MG CAP PO SCH ×2 (08:48→21:16)
[2018-05-22] MEDS: Famotidine 20 MG TAB PO SCH ×2 (08:48→21:16)
[2018-05-22] MEDS ORDERED: Calcium Chloride 1 GM/10 ML Abboject SYRINGE ONE (10:04)
[2018-05-22] MEDS ORDERED: Rocuronium Bromide 10 MG/ML (10ML VIAL) ONE (10:04)
[2018-05-22] MEDS ORDERED: PHENYLEPHRINE-NS 100 MCG/ML 10 ML SYRINGE ONE (10:04)
[2018-05-22] MEDS ORDERED: Glycopyrrolate 0.2 MG/ML 5 ML SYRINGE ONE (10:04)
[2018-05-22] MEDS ORDERED: ePHEDrine 50 MG/ML VIAL ONE (10:04)
[2018-05-22] MEDS ORDERED: PROPOFOL 200 MG/20 ML VIAL ONE (10:04)
[2018-05-22] MEDS ORDERED: EPINEPHrine 1 MG/10 ML Abboject SYRINGE ONE ×3 (10:04→16:44)
[2018-05-22] MEDS ORDERED: Atropine Sulfate 0.4 mg/1 ml Vial ONE (10:04)
[2018-05-22] MEDS ORDERED: Succinylcholine Chloride 20 MG/ML 10 ml SYRINGE FS ONE (10:04)
[2018-05-22 10:17] LABS: Eosinophils 7 % (0-10); Hypochromia SLIGHT = 6-15 cells (100X) (0-5/hpf); Lymphocytes 16 % (21-51); MDiff Complete? YES; Monocytes 10 % (0-10); Neutrophil 67 % (42-75); Platelet Morphology Comment Appears Adequate; Polychromasia SLIGHT = 2-3 cells (100X) (0-2/hpf)
[2018-05-22] MEDS ORDERED: Bupivacaine HCl 0.5%/Epinephrine 1:200,000/PF 30 ml Vial ONE ×2 (10:57→15:04)
[2018-05-22] MEDS ORDERED: metroNIDAZOLE 500 MG/100 ML BAG ONE (13:44)
[2018-05-22] MEDS ORDERED: cefOXitin 2 GM VIAL ONE (13:45)
[2018-05-22] MEDS ORDERED: Sodium Chloride 0.9% 100 ML ONE (13:46)
[2018-05-22] MEDS ORDERED: Fentanyl 100 MCG/2 ML VIAL ONE ×2 (13:59→15:15)
[2018-05-22] MEDS ORDERED: Midazolam HCl 2 mg/2 ml Vial ONE (13:59)
[2018-05-22] MEDS ORDERED: Bupivacaine/Epinephrine 0.25% 30 ML VIAL ONE (15:04)
[2018-05-22] MEDS: Nitroglycerin 2% Ointment 1 INCH/1 GM Packet TOP SCH ×2 (16:33→21:17)
--- NOTE | 2018-05-22 16:35 | PDOC.PN ---
- Subjective Encounter Start Date: 05/22/18 Encounter Start Time: 11:00 Mr. Calderon was seen today in follow-up of colon mass. He does not have any new complaint. - Objective MAR Reviewed: Yes Vital Signs & Weight: Vital Signs (12 hours) Temp Pulse Resp BP Pulse Ox 05/22/18 11:39 98.4 F 87 16 118/60 96 05/22/18 08:48 90 05/22/18 07:25 98.3 F 90 16 129/67 96 Weight Weight 150 lb 3.2 oz I&O: 05/21/18 05/22/18 05/23/18 06:59 06:59 06:59 Intake Total 1540 1381 Output Total 1220 1680 Balance 320 -299 Result Diagrams: 05/22/18 05:24 05/22/18 05:24 Additional Labs: Accuchecks 05/22/18 05/22/18 05/22/18 16:23 10:28 05:39 POC Glucose 187 H 148 H 123 H 05/21/18 05/21/18 20:35 16:58 POC Glucose 328 H 204 H Phys Exam - Physical Examination HEENT: PERRLA Respiratory: no wheezing, no rales, no rhonchi, clear to auscultation bilateral Cardiovascular: RRR, no significant murmur, no rub Gastrointestinal: soft, non-tender, no distention, positive bowel sounds Musculoskeletal: no edema Bilateral AKA Dx/Plan (1) Iron deficiency anemia due to chronic blood loss Code(s): D50.0 - IRON DEFICIENCY ANEMIA SECONDARY TO BLOOD LOSS (CHRONIC) Status: Acute Comment: Hgb dropped 6 points in 2 months, Xarelto on hold, EGD and colonoscopy planned for Sunday (2) Atrial fibrillation Code(s): I48.91 - UNSPECIFIED ATRIAL FIBRILLATION Status: Chronic Qualifiers: Atrial fibrillation type: paroxysmal Qualified Code(s): I48.0 - Paroxysmal atrial fibrillation Comment: Xarelto on hold (3) CAD (coronary artery disease) Code(s): I25.10 - ATHSCL HEART DISEASE OF [place] CORONARY ARTERY W/O ANG PCTRS Status: Chronic Qualifiers: Coronary Disease-Associated Artery/Lesion type: bypass graft Comment: stent since bipass, stress test without evidence acute ischemia (4) DM2 (diabetes mellitus, type 2) Status: Chronic Comment: (5) HTN (hypertension) Code(s): I10 - ESSENTIAL (PRIMARY) HYPERTENSION Status: Chronic - Plan * Colon Mass- probable cancer- patient is going for surgical resection today * CAD- stable- stress test was negative and he has been cleared for Surgery by Cardiology * DM- blood glucose is stable * HTN- blood pressure is stable * AFIB- heart rate is stable
[2018-05-22] MEDS ORDERED: SUGAMMADEX SODIUM 200 MG/2 ML VIAL ONE (17:16)
[2018-05-22] MEDS ORDERED: Promethazine HCl 25 MG/ML VIAL SLOW IVP PRN (17:41)
[2018-05-22] MEDS ORDERED: Ondansetron HCl/PF 4 MG/2 ML Vial IVP PRN (17:41)
[2018-05-22] MEDS ORDERED: Promethazine HCl 25 MG/ML VIAL IM PRN (17:41)
[2018-05-22] MEDS ORDERED: Sodium Chloride 0.9% 10 ML ONE (17:43)
[2018-05-22] MEDS ORDERED: Morphine 4 MG/ML VIAL SLOW IVP PRN (18:11)
[2018-05-22] MEDS ORDERED: traMADol HCl 50 MG TAB PO PRN (18:11)
[2018-05-22] MEDS: Sodium Chloride 0.9% 1,000 ML IV SCH (18:35)
[2018-05-22 20:15] LABS: Hemoglobin A1c 7.6 % (4.0-6.0)
[2018-05-22] MEDS: Rosuvastatin 20 MG TAB PO SCH (21:15)
[2018-05-22] MEDS: Amitriptyline HCl 25 MG TAB PO SCH (21:16)
[2018-05-22] MEDS: Acetaminophen 1,000 MG in Premix Bag 1 BAG IVPB SCH (23:16)
--- NOTE | 2018-05-23 00:02 | OP ---
DATE OF PROCEDURE: 05/22/2018 PREOPERATIVE DIAGNOSES: Chronic anemia, hepatic flexure/proximal transverse colon cancer, chronic kidney disease, coronary artery disease, and bilateral [id number]-cbw-[id number] amputee. POSTOPERATIVE DIAGNOSES: Chronic anemia, hepatic flexure/proximal transverse colon cancer, chronic kidney disease, coronary artery disease, and bilateral [id number] amputee. PROCEDURE PERFORMED: Laparoscopic right colectomy. ESTIMATED BLOOD LOSS: 75 mL. BLOOD TRANSFUSION: 2 units of blood initiated. INDICATIONS FOR PROCEDURE: Due to intraoperative hypotension and bradycardia and above comorbidities, public health informatician Dr. Mo, epic prelude analyst Dr. Morales, [facility], and Weinberg catheter placed at the beginning of the procedure and left at the end of procedure to be removed the next morning. SURGEON: Channing Mcnair MD. DESCRIPTION OF PROCEDURE: The patient was taken to the operating room under general anesthesia and TAP block. Weinberg catheter was placed. Abdomen was clipped of hair, prepared with ChloraPrep and draped in routine fashion. Left periumbilical incision made. Pneumoperitoneum to 15 mmHg obtained with a Veress needle and replaced with a 5 port laparoscope inserted. Right subcostal incision made and 5 port placed. Left upper quadrant incision made and a 5 port placed. Right lower quadrant incision made and a 5 port placed. Left upper quadrant incision later exchanged for a 12 port for the stapler. The tattooed area of the colon was noted in the proximal transverse colon. The colon was fairly redundant and mobile. Mesentry was thin. Terminal ileum was mobilized using the LigaSure as was the colon. The hepatic flexure and proximal transverse colon were mobilized from the gastrocolic ligament using the LigaSure. Attention turned to the mesentery of the right colon, which was incised and dissected free up cephalad, identifying the duodenum, dissecting it free of the mesentery. Ileocolic pedicle identified, dissected free, divided with a white load stapler. Mesentery dissected free down to the terminal ileum, freeing it. Mesentery dissected freed to the right, mobilizing the right colon, hepatic flexure, and identified the duodenum, keeping it free of harm as a transverse colon beyond the tattooed area was identified. At this point, incision was made in the upper midline abdomen, carried down through skin, subcutaneous tissue, and midline fascia, placed a wound protector, brought the colon out, and performed an ileocolic anastomosis with a fire of REBECCA stapler 75 load blue. Common defect excised using 3 fires of REBECCA blue load stapler. Good anastomosis was palpated. Good hemostasis noted. Interrupted Lembert suture of 3-0 silk used to approximate the colon, removing tension from the anastomosis. Good hemostasis noted. Specimen submitted to Pathology. Good hemostasis ensured. No evidence of metastatic disease noted. Hemostasis has been noted. Our gloves were changed and midline fascia closed with continuous suture of #1 PDS. Skin and subcutaneous tissues were irrigated. Laparoscopic incision sites closed with interrupted subdermal 4-0 Monocryl and skin incision closed with 4-0 Monocryl and [place]-glue applied. The patient tolerated the procedure well. Job ID: [id number]
[2018-05-23] MEDS: Sodium Chloride 0.9% 1,000 ML IV SCH ×2 (03:25→09:30)
[2018-05-23] MEDS: traMADol HCl 50 MG TAB PO PRN (03:25)
[2018-05-23] MEDS: Acetaminophen 1,000 MG in Premix Bag 1 BAG IVPB SCH (05:20)
[2018-05-23] MEDS: Nitroglycerin 2% Ointment 1 INCH/1 GM Packet TOP SCH ×3 (05:21→21:09)
[2018-05-23 06:29] LABS: #Lymphocytes 1.2 thou/uL (1.20-3.40); #Monocytes 1.9 thou/uL (0.11-0.59); #Neutrophils 14.8 thou/uL (1.40-6.50); %Basophils 0.2 % (0.0-1.0); %Eosinophils 0.1 % (0.0-10.0); %Lymphocytes 6.5 % (21.0-51.0); %Monocytes 10.5 % (0.0-10.0); %Neutrophils 82.7 % (42.0-75.0); Hemoglobin 8.7 g/dL (14.0-18.0); Mean Corpuscular HGB CONC 31.4 g/dL (32.0-36.0); Mean Corpuscular Hemoglobin 27.1 pg (27.0-31.0); Mean Corpuscular Volume 86.3 fL (78.0-98.0); Platelet Count 298 thou/uL (130-400); RBC Distribution Width 13.8 % (11.5-14.5); Red Blood Cell (RBC) Count 3.22 mill/uL (4.70-6.10); White Blood Cell (WBC) Count 17.9 thou/uL (4.8-10.8)
[2018-05-23 06:49] LABS: Anion Gap 12 mmol/L (10-20); BUN (Urea Nitrogen) 18 mg/dL (8.4-25.7); Calc. Creatinine Clearance 37 mL/min (70-130); Calcium 8.3 mg/dL (7.8-10.44); Carbon Dioxide 16 mmol/L (22-29); Chloride 106 mmol/L (98-107); Estimated GFR-MDRD 39; Glucose 127 mg/dL (70-105); Potassium 4.3 mmol/L (3.5-5.1); Sodium 130 mmol/L (136-145)
[2018-05-23] MEDS: Gabapentin 100 MG CAP PO SCH ×2 (10:11→21:09)
[2018-05-23] MEDS: Famotidine 20 MG TAB PO SCH ×2 (10:11→21:09)
[2018-05-23] MEDS: Tamsulosin HCl 0.4 MG CAP PO SCH (10:11)
[2018-05-23] MEDS: Amiodarone 200 MG TAB PO SCH (10:12)
[2018-05-23] MEDS: Carvedilol 3.125 MG TAB PO SCH ×2 (10:12→18:08)
[2018-05-23] MEDS: hydrALAZINE 25 MG TAB PO SCH ×3 (10:12→21:09)
[2018-05-23] MEDS: Isosorbide Dinitrate 5 MG TAB PO SCH ×3 (10:12→21:09)
[2018-05-23] MEDS: Diltiazem HCl CD 300 mg Capsule PO SCH (10:12)
[2018-05-23] MEDS: Aspirin 81 mg Enteric Coated Tablet PO SCH (10:13)
--- NOTE | 2018-05-23 12:08 | PDOC.PN ---
- Subjective Encounter Start Date: 05/23/18 Encounter Start Time: 12:06 Mr. Calderon was seen today in follow-up of colon cancer post resection. He notes some expected post-operative pain. - Objective MAR Reviewed: Yes Vital Signs & Weight: Vital Signs (12 hours) Temp Pulse Resp BP BP Pulse Ox 05/23/18 10:12 96 150/73 H 05/23/18 08:00 97.8 F 96 16 150/73 H 100 05/23/18 04:20 97.4 F L 92 20 135/65 100 Weight Weight 153 lb 14.4 oz I&O: 05/22/18 05/23/18 05/24/18 06:59 06:59 06:59 Intake Total 1381 3250 Output Total 1680 600 Balance -299 2650 Result Diagrams: 05/23/18 05:49 05/23/18 05:49 Additional Labs: Accuchecks 05/23/18 05/23/18 05/22/18 10:43 05:11 20:13 POC Glucose 96 128 H 169 H 05/22/18 05/22/18 17:36 16:23 POC Glucose 167 H 187 H Phys Exam - Physical Examination HEENT: PERRLA Respiratory: no wheezing, no rales, no rhonchi, clear to auscultation bilateral Cardiovascular: RRR, no significant murmur, no rub Gastrointestinal: soft + diffuse tenderness, no rebound or guarding, bowel sounds are absent Musculoskeletal: no edema Bilateral AKA Dx/Plan (1) Adenocarcinoma, colon Code(s): C18.9 - MALIGNANT NEOPLASM OF COLON, UNSPECIFIED Status: Acute (2) Iron deficiency anemia due to chronic blood loss Code(s): D50.0 - IRON DEFICIENCY ANEMIA SECONDARY TO BLOOD LOSS (CHRONIC) Status: Acute Comment: Hgb dropped 6 points in 2 months, Xarelto on hold, EGD and colonoscopy planned for Sunday (3) Atrial fibrillation Code(s): I48.91 - UNSPECIFIED ATRIAL FIBRILLATION Status: Chronic Qualifiers: Atrial fibrillation type: paroxysmal Qualified Code(s): I48.0 - Paroxysmal atrial fibrillation Comment: Xarelto on hold (4) CAD (coronary artery disease) Code(s): I25.10 - ATHSCL HEART DISEASE OF [place] CORONARY ARTERY W/O ANG PCTRS Status: Chronic Qualifiers: Coronary Disease-Associated Artery/Lesion type: bypass graft Comment: stent since bipass, stress test without evidence acute ischemia (5) DM2 (diabetes mellitus, type 2) Status: Chronic Comment: (6) HTN (hypertension) Code(s): I10 - ESSENTIAL (PRIMARY) HYPERTENSION Status: Chronic - Plan * Adenocarcinoma of the colon- he is s/p resection( lap right colectomy)- Symptom control * CAD- stable * DM- blood glucose is stable * HTN- blood pressure is a bit elevated- continue Hydralazine IV PRN * Iron deficiency anemia- Hemoglobin has improved after transfusion- iron supplement once he is able to tolerate p.o..
[2018-05-23] MEDS ORDERED: Acetaminophen 500 MG TAB PO PRN (14:00)
[2018-05-23] MEDS: Morphine 4 MG/ML VIAL SLOW IVP PRN ×2 (14:30→21:10)
--- NOTE | 2018-05-23 20:33 | PRG ---
DATE OF SERVICE: 05/23/2018 SUBJECTIVE: Prudencio Calderon is doing well today. He has done well post laparoscopic right colon resection. He did not experience any nausea or vomiting. OBJECTIVE: VITAL SIGNS: Temperature 96.5 degrees and blood pressure 154/74. GENERAL: Urine output is good. LUNGS: Clear to auscultation. CARDIAC: Regular rate and rhythm without murmur or gallop. ABDOMEN: Soft. Bowel sounds present. No stool or flatus. LABORATORY DATA: This morning, his hemoglobin is 8.7, unchanged from yesterday. Basic metabolic profile is normal. Creatinine is 2.11 and his BUN is 18. ASSESSMENT AND PLAN: Doing well after right colon resection, he is tolerating full liquids. We will saline lock tonight. We will remove his Weinberg in the morning. We will advance him to a full liquids in the morning and regular at noon. Job ID: [id number]
[2018-05-23] MEDS: Rosuvastatin 20 MG TAB PO SCH (21:08)
[2018-05-23] MEDS: Amitriptyline HCl 25 MG TAB PO SCH (21:09)
[2018-05-24] MEDS: Morphine 4 MG/ML VIAL SLOW IVP PRN (03:04)
[2018-05-24] MEDS: Nitroglycerin 2% Ointment 1 INCH/1 GM Packet TOP SCH ×2 (05:45→14:55)
[2018-05-24] MEDS: Tamsulosin HCl 0.4 MG CAP PO SCH (09:06)
[2018-05-24] MEDS: Aspirin 81 mg Enteric Coated Tablet PO SCH (09:06)
[2018-05-24] MEDS: hydrALAZINE 25 MG TAB PO SCH ×2 (09:06→17:21)
[2018-05-24] MEDS: Amiodarone 200 MG TAB PO SCH (09:07)
[2018-05-24] MEDS: Carvedilol 3.125 MG TAB PO SCH ×2 (09:07→17:21)
[2018-05-24] MEDS: Diltiazem HCl CD 300 mg Capsule PO SCH (09:07)
[2018-05-24] MEDS: Gabapentin 100 MG CAP PO SCH (09:07)
[2018-05-24] MEDS: Famotidine 20 MG TAB PO SCH (09:07)
[2018-05-24] MEDS: Isosorbide Dinitrate 5 MG TAB PO SCH ×2 (09:07→17:21)
[2018-05-24] MEDS: traMADol HCl 50 MG TAB PO PRN (09:07)
[2018-05-24] MEDS ORDERED: Furosemide 40 MG/4 ML VIAL SLOW IVP SCH (09:15)
--- NOTE | 2018-05-24 10:55 | RAD ---
SINGLE VIEW CHEST: Date: 05/24/18 COMPARISON: 05/18/18. HISTORY: Shortness of breath. FINDINGS: Single view of the chest shows an enlarged but stable cardiomediastinal silhouette. The patient is st atus post sternotomy. There are fluffy opacities in the bilateral lower lobes which may represent ple ural effusions and adjacent atelectasis versus infiltrates. This has not changed significantly compar ed to the prior exam. IMPRESSION: Stable exam. POS: [facility]
[2018-05-24] MEDS ORDERED: Furosemide 20 MG/2 ML VIAL SLOW IVP SCH (16:15)
[2018-05-24 17:06] VITALS: BP 119/67; TEMP 99.5
--- NOTE | 2018-05-24 17:48 | PDOC.PN ---
- Subjective Encounter Start Date: 05/24/18 Encounter Start Time: 12:00 Mr. Calderon was seen today in follow-up of adenocarcinoma of the colon. He is complaining of some shortness of breath. He has some abdominal discomfort. - Objective MAR Reviewed: Yes Vital Signs & Weight: Vital Signs (12 hours) Temp Pulse Resp BP Pulse Ox 05/24/18 16:30 99.5 F 97 18 119/67 99 05/24/18 12:55 97.9 F 100 18 116/66 99 05/24/18 08:55 98.5 F 72 22 H 119/59 L 89 L Weight Weight 156 lb 14.4 oz I&O: 05/23/18 05/24/18 05/25/18 06:59 06:59 06:59 Intake Total 3250 3200 Output Total 600 975 400 Balance 2650 2225 -400 Result Diagrams: 05/23/18 05:49 05/23/18 05:49 Additional Labs: Accuchecks 05/24/18 05/24/18 05/24/18 16:55 11:20 05:48 POC Glucose 133 H 125 H 117 H 05/23/18 05/23/18 20:22 17:06 POC Glucose 86 92 Phys Exam - Physical Examination HEENT: PERRLA + decreased breath sounds at both bases, and some E-A changes at the bases Cardiovascular: RRR, no significant murmur, no rub Gastrointestinal: soft, non-tender, no distention, positive bowel sounds Musculoskeletal: no edema Dx/Plan (1) Adenocarcinoma, colon Code(s): C18.9 - MALIGNANT NEOPLASM OF COLON, UNSPECIFIED Status: Acute (2) Iron deficiency anemia due to chronic blood loss Code(s): D50.0 - IRON DEFICIENCY ANEMIA SECONDARY TO BLOOD LOSS (CHRONIC) Status: Acute Comment: Hgb dropped 6 points in 2 months, Xarelto on hold, EGD and colonoscopy planned for Sunday (3) Atrial fibrillation Code(s): I48.91 - UNSPECIFIED ATRIAL FIBRILLATION Status: Chronic Qualifiers: Atrial fibrillation type: paroxysmal Qualified Code(s): I48.0 - Paroxysmal atrial fibrillation Comment: Xarelto on hold (4) CAD (coronary artery disease) Code(s): I25.10 - ATHSCL HEART DISEASE OF [place] CORONARY ARTERY W/O ANG PCTRS Status: Chronic Qualifiers: Coronary Disease-Associated Artery/Lesion type: bypass graft Comment: stent since bipass, stress test without evidence acute ischemia (5) DM2 (diabetes mellitus, type 2) Status: Chronic Comment: (6) HTN (hypertension) Code(s): I10 - ESSENTIAL (PRIMARY) HYPERTENSION Status: Chronic - Plan * Colon cancer - he is s/p resection * AFIB- stable * He had some mild volume overload which he was given Lasix for * Stable for discharge back to the [facility].
--- NOTE | 2018-05-24 21:51 | DIS ---
DATE OF ADMISSION: 05/17/2018 DATE OF DISCHARGE: 05/24/2018 DISCHARGE DISPOSITION: Back to the [facility] at the [facility]. DISCHARGE DIAGNOSES: 1. Adenocarcinoma of the colon. 2. Chest pain, resolved. 3. Coronary artery disease. 4. Atrial fibrillation. 5. Peripheral vascular disease. 6. Hyperlipidemia. DISCHARGE MEDICATIONS: Include; 1. Xarelto 15 mg daily. 2. Nitrostat 0.4 sublingual p.r.n. 3. Glipizide XL 2.5 mg daily. 4. Elavil 25 mg at bedtime. 5. Crestor 20 mg daily. 6. Neurontin 100 mg twice a day. 7. Cardizem CD 300 mg daily. 8. Carvedilol 3.125 mg twice a day. 9. Amiodarone 200 mg daily. 10. Tylenol 650 mg q.4 as needed. PROCEDURES DONE DURING THE ADMISSION: The patient had a nuclear stress test, in which there was no evidence of any reversible ischemia. There was some dyskinesia at the septum near the heart base. The ejection fraction was estimated at 41%. The patient had a colonoscopy and EGD, this was for iron deficiency anemia, it demonstrated a 3-cm mass at the ascending colon consistent with malignancy. The patient had resection of the mass. Pathology demonstrated invasive well to moderately differentiated adenocarcinoma. CODE STATUS: Full code. ALLERGIES: NO KNOWN DRUG ALLERGIES. HOSPITAL COURSE: Mr. Calderon is a 62-year-old gentleman who originally presented to the emergency room complaining of some chest discomfort. He was admitted and ruled out and underwent a nuclear stress test, which was negative for any reversible ischemia. During his hospital stay, he was noted to have an iron deficiency anemia. For this reason, he underwent colonoscopy and was found to have a mass in the ascending colon. General Surgery was consulted and he underwent resection of the mass. After he was postop and stable and tolerating p.o., he was transferred back to the [facility] at the [facility], where he would continue receiving his treatment at the discretion of the [place] [facility]. Job ID: [id number]
--- NOTE | 2018-05-25 18:41 | EKG ---
Test Reason : CP Blood Pressure : / mmHG Vent. Rate : 056 BPM Atrial Rate : 056 BPM P-R Int : 164 ms QRS Dur : 090 ms QT Int : 446 ms P-R-T Axes : 000 038 169 degrees QTc Int : 430 ms Sinus bradycardia Left ventricular hypertrophy No STEMI Abnormal ECG Confirmed by ALEXIS AGUILERA, ATIF Ramirez ([id number]), editor school photograph DANIELLE ARVIZU ([id number]) on 05/25/2018 6:41:20 PM Referred By: ALEXIS Confirmed By:ATIF ESPINOZA MD
== END 2018-05-24 19:30 | DRG 330 ==
LOC: ERS 12:54 → 2NO 14:00 → OBSVTOIN 14:00
PROVIDERS: ADMIT Family Medicine; ATTEND Family Medicine
PROC: 0DJ08ZZ Inspection of Upper Intestinal Tract, Via Natural or Artificial Opening Endoscopic (ICD-10-PCS; 2018-05-21)
PROC: 0DBK8ZX Excision of Ascending Colon, Via Natural or Artificial Opening Endoscopic, Diagnostic (ICD-10-PCS; 2018-05-21)
PROC: 0DTF4ZZ Resection of Right Large Intestine, Percutaneous Endoscopic Approach (ICD-10-PCS; principal; 2018-05-22)
PROC: 30233N1 Transfusion of Nonautologous Red Blood Cells into Peripheral Vein, Percutaneous Approach (ICD-10-PCS; 2018-05-22)
DX: C18.2 Malignant neoplasm of ascending colon (principal); E87.1 Hypo-osmolality and hyponatremia; I13.0 Hypertensive heart and chronic kidney disease with heart failure and stage 1 through stage 4 chronic kidney disease, or unspecified chronic kidney disease; I48.92 Unspecified atrial flutter; I50.32 Chronic diastolic (congestive) heart failure; I25.719 Atherosclerosis of autologous vein coronary artery bypass graft(s) with unspecified angina pectoris; E78.5 Hyperlipidemia, unspecified; I34.0 Nonrheumatic mitral (valve) insufficiency; I07.1 Rheumatic tricuspid insufficiency; E11.22 Type 2 diabetes mellitus with diabetic chronic kidney disease; N18.3 Chronic kidney disease, stage 3 (moderate); I73.9 Peripheral vascular disease, unspecified; B19.20 Unspecified viral hepatitis C without hepatic coma; F14.10 Cocaine abuse, uncomplicated; D50.0 Iron deficiency anemia secondary to blood loss (chronic); I48.0 Paroxysmal atrial fibrillation; F12.10 Cannabis abuse, uncomplicated; Z95.1 Presence of aortocoronary bypass graft; Z79.01 Long term (current) use of anticoagulants; Z79.899 Other long term (current) drug therapy; Z79.52 Long term (current) use of systemic steroids; Z87.891 Personal history of nicotine dependence; Z89.612 Acquired absence of left leg above knee; Z89.611 Acquired absence of right leg above knee; Z95.5 Presence of coronary angioplasty implant and graft; Z82.49 Family history of ischemic heart disease and other diseases of the circulatory system; Z79.84 Long term (current) use of oral hypoglycemic drugs
CPT/HCPCS: 36415; 36416; 36430; 71045; 78452; 80048; 80053; 82378; 82553; 82607; 82746; 83036; 83540; 83550; 83735; 83880; 84484; 85025; 85610; 85730; 86850; 86900; 86901; 88305; 88309; 90471; 90686; 93005; 93017; A9500; G0008; J0131; J0171; J0360; J0461; J0670; J0694; J1940; J2001; J2250; J2270; J2704; J2785; J3010; J3490; J7050; P9016

== ENCOUNTER 2018-05-25 13:42 | Emergency (ER) | payer OTHER ==
--- NOTE | 2018-05-25 14:51 | RAD ---
PORTABLE CHEST: DATE: 05/25/2018. PROVIDED CLINICAL HISTORY: Chest pain. FINDINGS: Comparison 05/24/2018. Cardiac silhouette remains enlarged. Median sternotomy changes are again seen . Bibasilar pleural parenchymal opacities are again noted, right greater than left. No evidence for pneumothorax. IMPRESSION: Stable radiographic appearance of the chest. POS: [facility]
[2018-05-25 15:19] LABS: #Eosinphils 0.4 thou/uL (0.0-0.7); #Lymphocytes 1.1 thou/uL (1.20-3.40); #Monocytes 1.3 thou/uL (0.11-0.59); #Neutrophils 12.2 thou/uL (1.40-6.50); %Basophils 0.1 % (0.0-1.0); %Eosinophils 2.6 % (0.0-10.0); %Lymphocytes 7.5 % (21.0-51.0); %Monocytes 8.8 % (0.0-10.0); %Neutrophils 81.1 % (42.0-75.0); Hemoglobin 9.5 g/dL (14.0-18.0); Mean Corpuscular HGB CONC 32.1 g/dL (32.0-36.0); Mean Platelet Volume 8.5 fL (7.4-10.4); Platelet Count 341 thou/uL (130-400); RBC Distribution Width 14.4 % (11.5-14.5); Red Blood Cell (RBC) Count 3.53 mill/uL (4.70-6.10); White Blood Cell (WBC) Count 15.1 thou/uL (4.8-10.8)
[2018-05-25 15:35] LABS: Chloride 101 mmol/L (98-107); Potassium 4.4 mmol/L (3.5-5.1); Sodium 128 mmol/L (136-145)
[2018-05-25 15:57] LABS: ALT (SGPT) 25 U/L (8-55); AST (SGOT) 26 U/L (5-34); Alkaline Phosphatase 123 U/L (40-150); BUN (Urea Nitrogen) 18 mg/dL (8.4-25.7); Bilirubin, Total 0.5 mg/dL (0.2-1.2); CK (CPK) 346 U/L (30-200); Calc. Creatinine Clearance 0 mL/min (70-130); Carbon Dioxide 17 mmol/L (22-29); Estimated GFR-MDRD 29; Globulin 2.7 g/dL (2.4-3.5); Glucose 262 mg/dL (70-105); Lipase 4 U/L (8-78); Protein, Total 5.7 g/dL (6.0-8.3)
[2018-05-25 16:06] LABS: Anion Gap 14 mmol/L (10-20)
== END 2018-05-25 18:22 ==
LOC: ERS 13:42
DX: I49.8 Other specified cardiac arrhythmias (principal); E11.9 Type 2 diabetes mellitus without complications; I11.0 Hypertensive heart disease with heart failure; I50.9 Heart failure, unspecified; F17.210 Nicotine dependence, cigarettes, uncomplicated; E78.5 Hyperlipidemia, unspecified; Z79.01 Long term (current) use of anticoagulants; Z79.899 Other long term (current) drug therapy; Z79.891 Long term (current) use of opiate analgesic
CPT/HCPCS: 36415; 71045; 80053; 82550; 82553; 83690; 83880; 84484; 85025; 85379; 93005; 96360

== ENCOUNTER 2018-05-28 18:22 | Emergency (ER) | payer OTHER ==
[~2018-05-28 18:22] MED LIST changes: +Iopamidol 370 76% 50 ML VIAL FS ONE
[2018-05-28 19:46] LABS: #Basophils 0.1 thou/uL (0.0-0.2); #Eosinphils 0.5 thou/uL (0.0-0.7); #Lymphocytes 1.5 thou/uL (1.20-3.40); #Monocytes 1.2 thou/uL (0.11-0.59); #Neutrophils 7.8 thou/uL (1.40-6.50); %Basophils 0.6 % (0.0-1.0); %Eosinophils 4.2 % (0.0-10.0); %Lymphocytes 13.3 % (21.0-51.0); %Neutrophils 70.8 % (42.0-75.0); Hemoglobin 9.6 g/dL (14.0-18.0); Mean Corpuscular HGB CONC 31.7 g/dL (32.0-36.0); Mean Corpuscular Hemoglobin 26.7 pg (27.0-31.0); Mean Corpuscular Volume 84.3 fL (78.0-98.0); Mean Platelet Volume 7.9 fL (7.4-10.4); Platelet Count 407 thou/uL (130-400); RBC Distribution Width 14.4 % (11.5-14.5); Red Blood Cell (RBC) Count 3.58 mill/uL (4.70-6.10)
--- NOTE | 2018-05-28 19:50 | RAD ---
RADIOGRAPH CHEST 1 VIEW: Date: 05/28/18 Time: 7:27 p.m. HISTORY: 62-year-old male with chest pain. COMPARISON: 05/25/18 FINDINGS: Air space densities remain at the bilateral lower lung zones, right more than left. Bilateral hemidia phragms remain indistinct, especially the left. Sternotomy wires. Lung apices remain clear. No pneumo thorax. No interval change overall. IMPRESSION: 1. Air space densities in the bilateral lower lobes. 2. Possible bilateral pleural effusions. 3. No interval change overall. JN [] POS: [facility]
[2018-05-28 20:21] LABS: ALT (SGPT) 18 U/L (8-55); AST (SGOT) 17 U/L (5-34); Albumin 3.1 g/dL (3.5-5.0); Alkaline Phosphatase 119 U/L (40-150); Anion Gap 12 mmol/L (10-20); BUN (Urea Nitrogen) 18 mg/dL (8.4-25.7); Bilirubin, Total 0.3 mg/dL (0.2-1.2); Calc. Creatinine Clearance 0 mL/min (70-130); Calcium 8.1 mg/dL (7.8-10.44); Carbon Dioxide 22 mmol/L (22-29); Chloride 103 mmol/L (98-107); Estimated GFR-MDRD 41; Globulin 2.9 g/dL (2.4-3.5); Glucose 187 mg/dL (70-105); Lipase 12 U/L (8-78); Potassium 4.3 mmol/L (3.5-5.1); Sodium 133 mmol/L (136-145)
--- NOTE | 2018-05-28 22:17 | CT ---
CT ABDOMEN AND PELVIS WITH IV AND ORAL CONTRAST: 05/28/18 HISTORY: Abdominal pain. Recent colon surgery. Possible obstruction. COMPARISON: 03/31/18. FINDINGS: Small amount of bilateral pleural fluid and associated atelectasis at the bases are now demonstrated. There is calcification throughout the arterial structures. Postoperative changes of the cecal base a re now apparent. Large amount of fecal material is present throughout the right colon and the transve rse colon. As on the previous study, there is gradual transition to a decompressed left colon and sig moid colon. Prominent calcification throughout the arterial structures. Small amount of free fluid in the depende nt portion of the pelvis. Urinary bladder is unremarkable. Prominent degenerative changes of the lumb ar spine. IMPRESSION: Interval postoperative changes of the cecum. Large amount of fecal material remains throughout the di lated right colon and transverse colon with decompression of the left colon. High grade obstruction i s not suspected. Small amount of free abdominal fluid is likely related to recent surgery. Bilateral pleural fluid. Prominent atherosclerosis. POS: [facility]
== END 2018-05-28 22:02 | disposition home or self-care (01) ==
LOC: ERS 18:22
DX: R10.9 Unspecified abdominal pain (principal); I11.0 Hypertensive heart disease with heart failure; I50.9 Heart failure, unspecified; E11.9 Type 2 diabetes mellitus without complications; E78.5 Hyperlipidemia, unspecified; F17.210 Nicotine dependence, cigarettes, uncomplicated; Z79.84 Long term (current) use of oral hypoglycemic drugs; Z79.899 Other long term (current) drug therapy
CPT/HCPCS: 36415; 71045; 74177; 80053; 83690; 84484; 85025; 93005; Q9966; Q9967

== ENCOUNTER 2018-06-13 15:31 | Emergency (ER) | payer OTHER ==
[2018-06-13 16:14] LABS: #Basophils 0.1 thou/uL (0.0-0.2); #Eosinphils 0.3 thou/uL (0.0-0.7); #Lymphocytes 1.6 thou/uL (1.20-3.40); #Monocytes 0.9 thou/uL (0.11-0.59); #Neutrophils 6.3 thou/uL (1.40-6.50); %Basophils 0.9 % (0.0-1.0); %Eosinophils 3.6 % (0.0-10.0); %Lymphocytes 17.2 % (21.0-51.0); %Monocytes 10.2 % (0.0-10.0); %Neutrophils 68.1 % (42.0-75.0); Hemoglobin 10.1 g/dL (14.0-18.0); Mean Corpuscular HGB CONC 30.9 g/dL (32.0-36.0); Mean Corpuscular Hemoglobin 25.1 pg (27.0-31.0); Mean Corpuscular Volume 81.2 fL (78.0-98.0); Mean Platelet Volume 8.1 fL (7.4-10.4); Platelet Count 354 thou/uL (130-400); RBC Distribution Width 15.3 % (11.5-14.5); White Blood Cell (WBC) Count 9.2 thou/uL (4.8-10.8)
--- NOTE | 2018-06-13 16:21 | RAD ---
EXAM: CHEST ONE VIEW PORTABLE: 06/13/18 HISTORY: Shortness of breath. COMPARISON: 05/28/18. FINDINGS: Postop midline sternotomy. Worsening bilateral pleural effusions and bilateral vascular congestion as well as interstitial and alveolar opacity changes in the lower lung zones. Possibilities include yuki t of bilateral pneumonia and/or atelectasis with worsening pleural effusions. IMPRESSION: Worsening pleural effusions and bibasilar pulmonary parenchymal changes. Possibilities include that o f bilateral pneumonia and/or worsening pleural effusions and atelectasis. Correlate clinically. Robinson nue short term followup for clearing or stability. Stable heart size. POS: [facility]
[2018-06-13 16:35] LABS: ALT (SGPT) 17 U/L (8-55); AST (SGOT) 21 U/L (5-34); Albumin 3.5 g/dL (3.5-5.0); Alkaline Phosphatase 158 U/L (40-150); Anion Gap 15 mmol/L (10-20); BUN (Urea Nitrogen) 19 mg/dL (8.4-25.7); Bilirubin, Total 0.4 mg/dL (0.2-1.2); Calc. Creatinine Clearance 0 mL/min (70-130); Calcium 9.2 mg/dL (7.8-10.44); Carbon Dioxide 21 mmol/L (22-29); Chloride 103 mmol/L (98-107); Estimated GFR-MDRD 36; Globulin 3.8 g/dL (2.4-3.5); Glucose 112 mg/dL (70-105); Potassium 4.6 mmol/L (3.5-5.1); Protein, Total 7.3 g/dL (6.0-8.3); Sodium 134 mmol/L (136-145)
[2018-06-13 20:01] LABS: Lactic Acid 1.5 mmol/L (0.5-2.2)
[2018-06-13] MEDS ORDERED: methylPREDNISolone Sod Succ/PF 125 MG/2 ML VIAL ONE (20:51)
[2018-06-13] MEDS ORDERED: Azithromycin 500 MG VIAL ONE (20:51)
[2018-06-13 21:34] LABS: CKMB 2.2 ng/mL (0-6.6)
[2018-06-13] MEDS ORDERED: Ketorolac Tromethamine 30 MG/ML VIAL ONE ×2 (21:39→22:10)
== END 2018-06-13 22:21 ==
LOC: ERS 15:31
DX: J20.9 Acute bronchitis, unspecified (principal); I11.0 Hypertensive heart disease with heart failure; I50.9 Heart failure, unspecified; E11.9 Type 2 diabetes mellitus without complications; E78.5 Hyperlipidemia, unspecified; F17.210 Nicotine dependence, cigarettes, uncomplicated; Z79.899 Other long term (current) drug therapy; Z79.84 Long term (current) use of oral hypoglycemic drugs
CPT/HCPCS: 36415; 71045; 80053; 82553; 83605; 83880; 84484; 85025; 87040; 93005; 94640; 94760; 96361; 96365; 96375; J0456; J1885; J2930; J7620

== ENCOUNTER 2018-06-17 12:52 | Inpatient (IN) | payer OTHER ==
[2018-06-17 14:09] LABS: Hemoglobin 8.9 g/dL (14.0-18.0); Mean Corpuscular HGB CONC 29.6 g/dL (32.0-36.0); Mean Corpuscular Hemoglobin 24.2 pg (27.0-31.0); Mean Corpuscular Volume 81.8 fL (78.0-98.0); Mean Platelet Volume 10.2 fL (7.4-10.4); Platelet Count 253 thou/uL (130-400); RBC Distribution Width 15.7 % (11.5-14.5); Red Blood Cell (RBC) Count 3.68 mill/uL (4.70-6.10)
[2018-06-17 14:22] LABS: ALT (SGPT) 378 U/L (8-55); AST (SGOT) 221 U/L (5-34); Albumin 3.6 g/dL (3.5-5.0); Alkaline Phosphatase 166 U/L (40-150); Anion Gap 18 mmol/L (10-20); BUN (Urea Nitrogen) 58 mg/dL (8.4-25.7); Bilirubin, Total 0.5 mg/dL (0.2-1.2); Calc. Creatinine Clearance 0 mL/min (70-130); Calcium 8.7 mg/dL (7.8-10.44); Carbon Dioxide 14 mmol/L (22-29); Chloride 100 mmol/L (98-107); Estimated GFR-MDRD 18; Globulin 3.6 g/dL (2.4-3.5); Glucose 290 mg/dL (70-105); Potassium 5.3 mmol/L (3.5-5.1); Protein, Total 7.2 g/dL (6.0-8.3); Sodium 127 mmol/L (136-145)
[2018-06-17 14:24] LABS: #Lymphocytes 0.5 thou/uL (1.20-3.40); #Monocytes 0.9 thou/uL (0.11-0.59); #Neutrophils 12.7 thou/uL (1.40-6.50); %Lymphocytes 3.5 % (21.0-51.0); %Monocytes 6.1 % (0.0-10.0); %Neutrophils 90.4 % (42.0-75.0); Anisocytosis SLIGHT = 6-15 cells (100X) (0-5/hpf); Elliptocytes SLIGHT = 2-5 cells (100X) (0-1/hpf); Hypochromia SLIGHT = 6-15 cells (100X) (0-5/hpf); MDiff Complete? YES; Platelet Morphology Comment Appears Adequate
--- NOTE | 2018-06-17 14:24 | RAD ---
PORTABLE CHEST: HISTORY: Bronchitis. Cough. COMPARISON: 06/13/2018 FINDINGS: Heart size is enlarged with postop sternotomy changes. Left-sided pleural and parenchymal lung witt es have largely resolved. Right-sided changes are fairly stable. IMPRESSION: 1. Cardiomegaly. 2. Right-sided pleural and parenchymal changes are fairly stable, as compared to the prior study. 3. Left-sided lung changes show definite improvement, still with some retrocardiac parenchymal witt e. POS: [facility]
[2018-06-17] MEDS ORDERED: Piperacillin/Tazobactam 4.5 GM VIAL ONE ×3 (14:39→14:41)
--- NOTE | 2018-06-17 15:07 | ULT ---
Sonogram right upper quadrant HISTORY: Right quadrant pain. FINDINGS: Gallbladder has normal appearance without stones visible. Common duct is 0.4 cm. Liver unre markable without focal mass or intrahepatic biliary dilatation. Small amount of free fluid throughout the right upper quadrant. IMPRESSION: No evidence of gallstones or biliary obstruction. Ascites. Small amount within the right upper quadrant.
[2018-06-17] MEDS ORDERED: MEROPENEM 1 GM/50 ML 1 GM in Premix Bag 1 BAG IVPB SCH (15:45)
--- NOTE | 2018-06-17 16:32 | CT ---
CT Abdomen Pelvis WO Con: 06/17/2018 3:35 PM History: Abdominal pain and chest pain COMPARISON: 05/28/2018 Procedure: Multiple contiguous axial images were obtained and a CT of the abdomen and pelvis without IV contrast . Coronal reformats were performed. FINDINGS: This examination is limited for the evaluation of solid organs and vascular structures due to the lac k of intravenous contrast. Lower Chest: Small bilateral pleural effusions with adjacent atelectasis. Abdomen: Liver: within normal limits. Bile Ducts: Normal caliber. Gallbladder: No calcified gallstones. Normal caliber wall. Contrast is in the gallbladder from recent contrast examination. Pancreas: within normal limits. Spleen: within normal limits. Adrenals: within normal limits. Kidneys: within normal limits. Pelvis: Reproductive Organs: No pelvic masses. Ureters: within normal limits. Bladder: within normal limits. Bowel: A large amount of stool is again seen in the colon. The small bowel is normal in caliber. Mesenteric Lymph Nodes: No enlarged mesenteric lymph nodes. Peritoneum: A small amount of ascites is seen. Vessels: Atherosclerotic changes . Retroperitoneum: within normal limits. Abdominal Wall: Diffuse soft tissue anasarca. Bones: Degenerative changes are seen in the spine. IMPRESSION: 1. Continued stool retention in the colon without bowel obstruction. 2. Mild ascites 3. Bilateral pleural effusions with adjacent atelectasis.
[2018-06-17 16:47] LABS: Bilirubin Negative (Negative); Blood, Urine Negative (Negative); Clarity CLEAR (Clear); Glucose, Urine (Dipstick) 100 mg/dL (Negative); Leukocyte Negative (Negative); Nitrite Negative (Negative); Protein, Urine (Dipstick) 100 mg/dL (Neg-Trace); Specific Gravity, Urine 1.015 (1.002-1.036); Urobilinogen 0.2 mg/dL (0.2-1.0)
[2018-06-17 16:49] LABS: Bacteria/HPF None Seen HPF (None Seen); Hyaline Casts/LPF 0-3 HYALINE CAST LPF (0-3 Hyaline); Squamous Epithelial 0-3 HPF (0-3); WBC/HPF 0-3 HPF (0-3)
[2018-06-17 18:10] LABS: Lactic Acid 2.4 mmol/L (0.5-2.2)
[2018-06-17] MEDS ORDERED: Ondansetron PF 4 MG/2 ML Vial IVP PRN (20:08)
[2018-06-17] MEDS ORDERED: Ondansetron ODT 4 MG TAB PO PRN (20:08)
[2018-06-17] MEDS ORDERED: Senokot S 8.6-50 MG TAB PO PRN (20:08)
[2018-06-17] MEDS ORDERED: Acetaminophen 325 MG TAB PO PRN (20:08)
[2018-06-17] MEDS ORDERED: Acetaminophen 650 MG Suppository PR PRN (20:08)
[2018-06-17] MEDS ORDERED: Vancomycin HCl 1 GM in Premix Bag 1 BAG IVPB SCH (20:30)
[2018-06-17] MEDS ORDERED: Dextrose 5% in Water 1,000 ML IV PRN (20:43)
[2018-06-17] MEDS ORDERED: Nitroglycerin 0.4 MG TAB (25 Tab Bottle) SL PRN (20:43)
[2018-06-17] MEDS ORDERED: Dextrose 50% Abboject 50 ML SYRINGE SLOW IVP PRN (20:43)
[2018-06-17] MEDS ORDERED: Piperacillin/Tazobactam 2.25 GM in Sodium Chloride 0.9% 100 ML IVPB SCH (22:00)
[2018-06-17] MEDS: HumaLOG 300 UNITS/3 ML VIAL SC PRN (22:21)
[2018-06-17] MEDS: Amitriptyline HCl 25 MG TAB PO SCH (22:22)
[2018-06-17] MEDS: Sodium Chloride 0.9% 1,000 ML IV SCH (22:22)
[2018-06-17] MEDS: Famotidine 20 MG TAB PO SCH (22:22)
[2018-06-17] MEDS: Rosuvastatin 20 MG TAB PO SCH (22:22)
[2018-06-18] MEDS: Piperacillin/Tazobactam 2.25 GM in Sodium Chloride 0.9% 100 ML IVPB SCH ×4 (00:01→23:45)
[2018-06-18] MEDS: Melatonin 3 MG TAB PO PRN (02:02)
--- NOTE | 2018-06-18 03:48 | HP ---
PRIMARY CARE PHYSICIAN: Dr. Keily Carrington at [facility]. CHIEF COMPLAINT: Cough, shortness of breath, and hypothermia. HISTORY OF PRESENT ILLNESS: This is a 62-year-old male with a history of diabetes, coronary artery disease, and hyperlipidemia as well as apparent diastolic congestive heart failure, who presented to the emergency room from intermediate. The patient had been seen here a few days ago for cough and shortness of breath. He was noted to have some pleural effusions on his chest x-ray at that time, which were a little worse from previous. He was given antibiotics, azithromycin, and discharged back to intermediate. He has since had continued cough, difficulty breathing and chest pain. He was noted to have a temperature of 94.4, so he was brought back into the emergency room. In the ER, the patient was noted to have worsened renal function, some mild hyperkalemia, hyponatremia, and elevated lactic acid. His chest x-ray showed improvement on the pleural effusion on the right, but no obvious new infiltrates. He was also noted to [place] [id number]. He was given multiple antibiotics in the emergency room, vancomycin, Levaquin, meropenem, and Zosyn. He was also given 2 L of IV fluids. He started to feel a little bit better. We were called to admit him to the hospital of note in the ER he previously and listed as Dr. Yuri Carrington, the patient actually sees Dr. Akers, resident, in [facility]. PAST MEDICAL HISTORY: 1. Diabetes mellitus type 2. 2. Coronary artery disease. 3. Diabetic nephropathy, followed by Dr. Duran. 4. Hyperlipidemia. 5. Diastolic congestive heart failure seen on an echocardiogram in March of this year with an EF of 45% to 50% and EA flow reversal. 6. Invasive adenocarcinoma, moderately differentiated, surgically resected with a right hemicolectomy by Dr. Mcnair last month. No known metastasis. 7. Previous atrial fibrillation. 8. Peripheral vascular disease. PAST SURGICAL HISTORY: 1. Bilateral goqvv-[id number] amputations. 2. Diskectomy of his back. 3. Coronary artery bypass grafting 4-vessel. 4. Right hemicolectomy. SOCIAL HISTORY: The patient is a previous tobacco user and abuses marijuana, but is currently in intermediate. Expected to get out next month per his report. FAMILY HISTORY: Father had lung cancer. His mother and siblings have had diabetes mellitus type 2. ALLERGIES: NO KNOWN DRUG ALLERGIES. CURRENT MEDICATIONS: 1. Diltiazem 300 mg daily. 2. Amitriptyline 25 mg at night. 3. Xarelto 15 mg daily. 4. Nitroglycerin as needed. 5. Glipizide 2.5 mg daily. 6. Crestor 20 mg at night. 7. Guaifenesin as needed. 8. Ventolin inhaler as needed. 9. Prednisone 20 mg daily from his previous ER visit. 10. Azithromycin, finishing up his Z-Ramiro. REVIEW OF SYSTEMS: CONSTITUTIONAL: No fevers, no chills. VITAL SIGNS: He has low blood pressure as per above. HEENT: Eyes, no significant vision changes. ENT, he does have some congestion and drainage. No sore throat. CARDIOVASCULAR: He has chest pain only with cough. No palpitations or racing heart. PULMONARY: See HPI. He had been coughing up green sputum. GASTROINTESTINAL: No abdominal pain. No nausea or vomiting. The patient actually indicates that the chest pain that he has is more in the mid epigastric region, no radiations. Not associated with any nausea or vomiting. No diarrhea or constipation. GENITOURINARY: No dysuria or hematuria. MUSCULOSKELETAL: No muscle aches or joint pains. He does have bilateral qshib-ryc-yhmp amputations with some peripheral neuropathy pain in both of his extremities. SKIN: No rashes or lesions noted. NEUROLOGIC: Chronic peripheral neuropathy pain. No new numbness, tingling, or focal weakness. PHYSICAL EXAMINATION: VITAL SIGNS: Blood pressure 140/87, pulse is 54, respirations 20, temperature 97.7, O2 saturation 94% on room air. GENERAL: This is a well-developed, well-nourished -[place] male, in no acute distress. HEENT: Pupils are equal, round, and reactive to light. He does appear to have a little bit of exophthalmos, though he has had a normal TSH in the last few months. Oropharynx clear without lesions, erythema, or exudate. NECK: Supple. No lymphadenopathy. No thyroid nodules or enlargement. No JVD. HEART: Regular rate and rhythm. No murmurs, rubs, or gallops. LUNGS: He has some junky breath sounds bilaterally in the bases. Otherwise, decent air movement throughout. No wheezes. ABDOMEN: The patient has an old midline scar. He has moderate tenderness to palpation in the epigastric region without guarding. No masses. No rebound tenderness. No hepatosplenomegaly. He has normoactive bowel sounds. MUSCULOSKELETAL: The patient has bilateral well-healed eocor-xbt-[id number] amputations. No other musculoskeletal abnormalities in his extremities or his back. SKIN: No rashes or lesions noted. NEUROLOGIC: He has intact strength in bilateral upper extremities and his hips. No facial droop. PSYCHIATRIC: Alert and oriented x3. Normal mood and affect. LABORATORY DATA: [place] [address], up from 9.2 on his ER visit 4 days ago. Hemoglobin is 8.9, down from 10.1 this last visit, but actually 8.9 to 9.5 is about where he tends to run, platelet count 254, neutrophils 90%, which is a new left shift. Complete metabolic panel notable for a sodium of 127, which he is what he has occasionally had before, but usually runs in the 130s. Potassium of 5.3, carbon dioxide of 14, BUN of 58, creatinine of 4.17, glucose of 290. AST is elevated at 221, ALT 378, alkaline phosphatase 166, and lactic acid was 2.4, initially and on recheck. Urinalysis showed protein and glucose, but no white blood cells, no bacteria. CT of the abdomen and pelvis done without contrast in the emergency room shows some stool retention in the colon without bowel obstruction, mild ascites and bilateral pleural effusions with adjacent atelectasis. His abdominal ultrasound showed some small amount of ascites in the right upper quadrant. No evidence of gallstones or biliary obstruction. ASSESSMENT: 1. Sepsis with low temperature, elevated white blood cell count and elevated lactic acid along with evidence of end-organ dysfunction in his kidneys and his liver, persistent with his cough and chest pain, concerning for pneumonia or pulmonary infection. We will continue antibiotics of Zosyn, Levaquin, and vancomycin dosed renally. We will continue IV fluids at 100 mL/h, normal saline, want to watch closely to make sure we do not overload him with his history of diastolic congestive heart failure. We will watch him in telemetry. 2. Acute on chronic renal failure. I then spoke to Dr. Duran and he will consult and follow along with the patient. We will see how his kidneys respond to the IV fluids in the emergency room. 3. Elevated liver function tests. The patient does not have any evidence of chronic cirrhosis on his ultrasound or on his albumin and previously on his coagulation profile. He just says the elevated AST and ALT, concerning possibly due to his sepsis. with hepatic congestion from congestive heart failure, though at this time, patient actually appears volume depleted. We will need to watch these closely and may need to have Gastroenterology get involved later during the patient's care. 4. Diabetes mellitus type 2. We will put the patient on sliding scale and monitor his blood sugars q.a.c. and h.s. 5. History of atrial fibrillation. We will continue patient's blood thinners. 6. Gastrointestinal prophylaxis. We will put the patient on Pepcid twice a day. CODE STATUS: I did discuss with the patient, he is a full code. Should he be incapacitated, he states that his closest relative medical decision maker would be his sister, Petra Hardwick. We will try and contact [facility] physician team to see if they want to take over the patient's care in the morning. Job ID: [id number]
[2018-06-18 05:42] LABS: ALT (SGPT) 301 U/L (8-55); AST (SGOT) 124 U/L (5-34); Albumin 3.3 g/dL (3.5-5.0); Alkaline Phosphatase 152 U/L (40-150); Anion Gap 18 mmol/L (10-20); BUN (Urea Nitrogen) 53 mg/dL (8.4-25.7); Bilirubin, Total 0.6 mg/dL (0.2-1.2); Calc. Creatinine Clearance 22 mL/min (70-130); Calcium 8.3 mg/dL (7.8-10.44); Carbon Dioxide 13 mmol/L (22-29); Chloride 103 mmol/L (98-107); Estimated GFR-MDRD 21; Globulin 3.1 g/dL (2.4-3.5); Glucose 185 mg/dL (70-105); Potassium 4.8 mmol/L (3.5-5.1); Protein, Total 6.4 g/dL (6.0-8.3); Sodium 129 mmol/L (136-145)
[2018-06-18 05:56] LABS: Band 7 % (5-11); Hemoglobin 8.3 g/dL (14.0-18.0); Lymphocytes 14 % (21-51); MDiff Complete? YES; Mean Corpuscular HGB CONC 29.6 g/dL (32.0-36.0); Mean Corpuscular Hemoglobin 24.5 pg (27.0-31.0); Mean Corpuscular Volume 82.7 fL (78.0-98.0); Mean Platelet Volume 10.2 fL (7.4-10.4); Neutrophil 79 % (42-75); Platelet Count 217 thou/uL (130-400); RBC Distribution Width 15.5 % (11.5-14.5); Red Blood Cell (RBC) Count 3.38 mill/uL (4.70-6.10)
--- NOTE | 2018-06-18 06:49 | PDOC.FM ---
- Subjective Subjective: Prudencio Calderon seen at bedside this morning. [facility] taking over care today for [facility] because patient is followed at [facility]. Patient states that he came to the hospital for increased dyspnea and cough. Progressively worsening over the last few days. Denies fever, chills, chest pain, n/v. States he was admitted a month ago and had a colon resection for adenocarcinoma , no known mets. Followed by Dr. Duran for diabetic nephropathy, Roger has been consulted for WILLIS on CKD. He has a history of A fib on rate control medication and anticoagulation. No acute events overnight. - Objective MAR Reviewed: Yes Vital Signs & Weight: Vital Signs (12 hours) Temp Pulse Resp BP Pulse Ox 06/18/18 04:00 97.4 F L 54 L 20 139/63 96 06/18/18 00:00 97.5 F L 52 L 20 132/63 94 L 06/17/18 19:45 97.6 F 55 L 20 148/69 H 99 Weight Weight 74.389 kg I&O: 06/16/18 06/17/18 06/18/18 06:59 06:59 06:59 Intake Total 240 Output Total 400 Balance -160 Result Diagrams: 06/18/18 04:35 06/18/18 08:59 Phys Exam - Physical Examination Constitutional: NAD HEENT: moist MMs, sclera anicteric Neck: supple, full ROM bilateral course breath sounds Cardiovascular: no significant murmur irregularly irregular rhythm, rate controlled Gastrointestinal: soft, non-tender mild distention bilateral AKAs Neurological: non-focal, normal sensation, moves all 4 limbs Psychiatric: normal affect, A&O x 3 Skin: no rash Dx/Plan (1) Sepsis Code(s): A41.9 - SEPSIS, UNSPECIFIED ORGANISM Status: Acute (2) Acute on chronic renal failure Code(s): N17.9 - ACUTE KIDNEY FAILURE, UNSPECIFIED; N18.9 - CHRONIC KIDNEY DISEASE, UNSPECIFIED Status: Acute (3) Elevated LFTs Code(s): R94.5 - ABNORMAL RESULTS OF LIVER FUNCTION STUDIES Status: Acute (4) Adenocarcinoma, colon Code(s): C18.9 - MALIGNANT NEOPLASM OF COLON, UNSPECIFIED Status: Acute (5) Atrial fibrillation Code(s): I48.91 - UNSPECIFIED ATRIAL FIBRILLATION Status: Chronic Qualifiers: (6) CAD (coronary artery disease) Code(s): I25.10 - ATHSCL HEART DISEASE OF [place] CORONARY ARTERY W/O ANG PCTRS Status: Chronic (7) CKD (chronic kidney disease) stage 3, GFR 30-59 ml/min Code(s): N18.3 - CHRONIC KIDNEY DISEASE, STAGE 3 (MODERATE) Status: Chronic (8) HLD (hyperlipidemia) Code(s): E78.5 - HYPERLIPIDEMIA, UNSPECIFIED Status: Chronic Qualifiers: (9) HTN (hypertension) Code(s): I10 - ESSENTIAL (PRIMARY) HYPERTENSION Status: Chronic - Plan Plan: Sepsis without source - Hypothermia 94.4 on admission, WBC elevated, elevated lactic acid on admission with evidence of end organ dysfunction - recent admission: adenocarcinoma of colon s/p resection, no known mets - Continue empiric abx therapy: levaquin, zosyn and vancomycin - Gentle mIVFs, NS @ 100 ml/hr, carefully monitoring for fluid overload with hx of CHF - checking procal this morning - CT chest ordered for this morning Acute on chronic renal failure - 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 Duran, who has been consulted - renal function has started to improve with IVFs - Current CrCl (Cockcroft-Gault) is 22 - will continue to monitor closely Elevated LFS - no history of elevated LFTs - hx of adenocarcinoma of colon, no known mets - could be related to hepatic congestion but pt presented volume down - LFTs downtrending s/p IVFs - checking acute hepatitis panel Anemia - Has been downtrending over the last several months - could be related to adenocarcinoma of colon - checking iron studies Hypokalemia: resolved - continue to monitor Hyponatremia - improving with IVFs - cont to monitor DM2 - on SSI, accuchecks ACHS Hx of A fib - hx of malignancy - continue home anticoagulation Addendum - Attending - Attending Attestation Date/Time: 06/18/18 1521 I personally evaluated the patient and discussed the management with Dr. Nash I agree with the History, Examination, Assessment and Plan documented above with any addition or exceptions noted below. 62 yo male with multiple medical problems admitted for sepsis HD#1 Patient reports pain today to epigastric area, lower chest and bilateral lower abdominal quadrants. Reports some difficulty with breathing this morning. Unable to lay flat. On his way to radiology for CT scan. VS reviewed. Labs reviewed. Imaging reviewed. Agree with PE as documented. Mild respiratory distress on exam. Crackles throughout. 1. Sepsis with mild lactic acidosis: Cultures pending. Chest CT pending. Continue empiric antibiotics. Concern for respiratory source. Trend lactic acid and procal. Monitor I/Os closely. 2. Atypical pneumonia: Scatter lesions on CXR. Appears worsened from 06/13/18. CT scan pending. Continue antibiotics. Consult pulm based on CT findings for assistance with bronch cultures. Concern for ARDS. 3. Acute rEFHF exacerbation: Elevated BNP. Trend trop to rule out ischemia. Likely related to demand from sepsis. Continue diuresis. LVEF = 45 to 50%. Hold IVFs. 4. Acute respiratory distress: Bilateral effusions on CXR. CT pending. Consider noninvasive ventilation. ABG as needed. Pulm if Bipap needed. 5. Bradycardia: No pacemaker. Monitor closely. Hold SA/AV christen agents. Cards as needed. 6. Electrolyte abnormalities: Monitor closely. Trend. Protocol. 7. CKD III: Monitor renal function closely. Low bicarb. Consider ABG to monitor pH. Nephro as needed. Trend labs and electrolytes. Will likely worsen due to needed for Lasix. 8. Hep C with transaminitis: Trend. Likely worsening due to fluid overload and right heart failure. 9. Uncontrolled DM: Monitor glucose q AC vs q 6 hours. Treat to prevent ketosis. Elevated risk due to #1. Adjust basal insulin as needed. Hold orals at this time, concern for bowel edema and poor absorption. 10. hx of CAD s/p CABG x4: Rule out ischemia. Trend trop. Dispo: Monitor closely. After CT scan evaluate for transfer to higher acuity unit. Deneen
[2018-06-18 07:15] LABS: Iron 11 ug/dL (65-175); Iron Binding Capacity, Total 298 mcg/dL (261-462)
[2018-06-18 10:24] LABS: Syphilis Antibody Nonreactive (Nonreactive); Syphilis Antibody Index 0.06 S/CO (<1.00 Non-Reactive)
--- NOTE | 2018-06-18 10:27 | CT ---
CT CHEST WITHOUT CONTRAST: INDICATIONS: Pneumonia. COMPARISON: Chest film from 06/17/2018, which shows opacification in the right lung base. Recent chest CT of 03/18/2018. FINDINGS: There is cardiomegaly with vascular congestion. Bilateral pleural effusions. The bilateral effusions have increased in size when compared to the CT. There are numerous bilateral somewhat focal nodular areas of parenchymal opacity. These focal areas show confluent alveolar opacity and areas of dense ground glass opacity. The multifocal, somewhat no dular appearance is concerning for an atypical infectious process. There is evidence of superimposed edema and possible ARDS. Bibasilar dense atelectasis is seen with the effusions. The mediastinum is unremarkable. IMPRESSION: 1. The moderate sized bilateral pleural effusions have increased since the prior CT. 2. Dense bibasilar atelectasis. 3. Numerous scattered, somewhat nodular areas of parenchymal opacity seen throughout the visualized lung fajardo bilaterally, concerning for an atypical infectious pneumonia. There is evidence of super imposed edema with vascular congestion. POS: [facility]
[2018-06-18 10:31] LABS: HBSAg Index 0.36 S/CO (0-0.99); Hep B Surf Ag Non-Reactive S/CO (NonReactive)
[2018-06-18 10:32] LABS: Hep A IgM AB Non-Reactive (NonReactive); Hep A IgM S/CO 0.39 S/CO (0-0.79)
[2018-06-18 10:34] LABS: HIV (1/2) Antibody/Antigen Non-Reactive (NonReactive); HIV 1/2 INDEX 0.14 S/CO (<1.00); Hepatitis B Core IgM Abs Non-Reactive (NonReactive)
[2018-06-18] MEDS: Rivaroxaban 15 MG TAB PO SCH (10:35)
[2018-06-18] MEDS: Diltiazem HCl CD 300 mg Capsule PO SCH (10:35)
[2018-06-18] MEDS: Sodium Chloride 0.9% 1,000 ML IV SCH (10:36)
[2018-06-18] MEDS: Senokot S 8.6-50 MG TAB PO SCH ×2 (10:37→20:08)
[2018-06-18 10:38] LABS: Hep C IgG Ab Reflex HepC Qnt (NonReactive)
[2018-06-18 10:51] LABS: Hep C Index 13.27 S/CO (0-0.79)
[2018-06-18] MEDS ORDERED: Furosemide 100 MG/10 ML VIAL SLOW IVP SCH ×2 (12:15→12:30)
--- NOTE | 2018-06-18 12:34 | PDOC.PULCN ---
Pulmonology Consult: HPI - Date of Consult Date: 06/18/18 Time: 11:00 - Consult Details Reason for Consult: Bilateral Lung Opacities and Pleural Effusions Requesting Physician: Jesus Manuel Nash MD - History of Present Illness HPI: ERIN COLBY is a 62 year-old Male that presents with 1-2 day history of cough and dyspnea. Patient reports that he recently had a bowel resection for adenocarcinoma of the large intestine as well. He denies orthopnea, fevers, chills, n/v/d, rashes, or other acute changes. He denies orthopnea or TILLMAN. He does complain of increased work of breathing and SOB. Patient has a history of poor compliance as an outpatient and is currently incarcerated. No other history is able to be obtained. Pulmonology Consult: ROS - Review of Systems Constitutional: negative: fever, chills Cardiovascular: edema. negative: chest pain, palpitations, orthopnea Respiratory: short of breath, tachypnea. negative: orthopnea, productive cough , wheezing Pulmonology Consult: PMH Source: patient, other Past Medical History: PMH: Hep C, CKD, A-fib, CHF, CAD, Adenocarcinoma of colon, DM2 PSH: 4 veseel CABG, Spine surgery, Bilateral AKA, and Partial Colectomy Social: Currently incarcerated. Minimum 20 year PPD smoking history. History of polysubstance abuse, Denies alcohol use. - Family History Family history: reviewed and not pertinent - Social History Smoking Status: Former smoker Alcohol Use: none Drug Use History: cocaine Living Situation: in custody Pulmonology Consult: Meds - Medications Medications: Current Medications Acetaminophen (Tylenol) 650 mg PO Q4H PRN PRN Reason: Headache/Fever/Mild Pain (1-3) Acetaminophen (Tylenol) 650 mg SD Q4H PRN PRN Reason: Headache/Fever/Mild Pain (1-3) Amitriptyline HCl (Elavil) 25 mg PO HS [facility] Last Admin: 06/17/18 22:22 Dose: 25 mg Dextrose/Water (Dextrose 50%) 25 gm SLOW IVP PRN PRN PRN Reason: Hypoglycemia Diltiazem HCl (Cardizem Cd) 300 mg PO DAILY [facility] Last Admin: 06/18/18 10:35 Dose: 300 mg Famotidine (Pepcid) 20 mg PO Q24HR [facility] Last Admin: 06/17/18 22:22 Dose: 20 mg Ferrous Sulfate (Feosol) 325 mg PO BID-[facility] Furosemide (Lasix) 100 mg SLOW IVP DAILY [facility] Furosemide (Lasix) 80 mg SLOW IVP ONE [facility] Stop: 06/18/18 14:00 Glipizide (Glucotrol Xl) 2.5 mg PO QAM-[facility] Last Admin: 06/18/18 10:35 Dose: 2.5 mg Glucagon (Glucagon) 1 mg IM PRN PRN PRN Reason: Hypoglycemia Guaifenesin/Dextromethorphan (Robitussin Dm) 15 ml PO Q4H PRN PRN Reason: Cough Levofloxacin 500 mg/ Device 100 mls @ 100 mls/hr IVPB Q2D [facility] Piperacillin Sod/Tazobactam (Sod 2.25 gm/ Sodium Chloride) 100 mls @ 200 mls/ hr IVPB 0800,1600,2359 [facility] Last Admin: 06/18/18 10:34 Dose: 100 mls Dextrose/Water (D5w) 1,000 mls @ 0 mls/hr IV .Q0M PRN PRN Reason: Hypoglycemia Insulin Human Lispro (Humalog) 0 units SC .MILD SLIDING SCALE PRN PRN Reason: Mild Correctional Scale Insulin Human Lispro (Humalog) 0 units SC .BEDTIME SLIDING SC PRN PRN Reason: Bedtime Correctional Scale Last Admin: 06/17/18 22:21 Dose: 2 units Melatonin (Melatonin) 3 mg PO HS PRN PRN Reason: Insomnia Last Admin: 06/18/18 02:02 Dose: 3 mg Methylprednisolone Sodium Succinate (Solu-Medrol) 40 mg IVP BID [facility] Miscellaneous Medication (Pharmacy To Dose) 1 each IVPB PRN PRN PRN Reason: Pharmacy to dose Nitroglycerin (Nitrostat) 0.4 mg SL Q5MIN PRN PRN Reason: Chest Pain/BP Elevations Ondansetron HCl (Zofran Odt) 4 mg PO Q6H PRN PRN Reason: Nausea/Vomiting Ondansetron HCl (Zofran) 4 mg IVP Q6H PRN PRN Reason: Nausea/Vomiting Rivaroxaban (Xarelto) 15 mg PO DAILY [facility] Last Admin: 06/18/18 10:35 Dose: 15 mg Rosuvastatin Calcium (Crestor) 20 mg PO HS [facility] Last Admin: 06/17/18 22:22 Dose: 20 mg Senna/Docusate Sodium (Senokot S) 2 tab PO BID [facility] Last Admin: 06/18/18 10:37 Dose: Not Given Sodium Chloride (Flush - Normal Saline) 10 ml IVF Q12HR [facility] Last Admin: 06/18/18 10:37 Dose: 10 ml Sodium Chloride (Flush - Normal Saline) 10 ml IVF PRN PRN PRN Reason: Saline Flush - Allergies Allergies/Adverse Reactions: Allergies Allergy/AdvReac Type Severity Reaction Status Date / Time No Known Allergies Allergy Verified 06/17/18 20:03 Pulmonology Consult: PE - Physical Exam Constitutional: NAD HEENT: moist MMs Cardiovascular: no significant murmur Deviation from normal: irregularly irregular Respiratory: rhonchi Deviation from normal: crackles at bilateral lung bases Gastrointestinal: soft, non-tender, no distention, positive bowel sounds Deviation from normal: edema to abdomen Musculoskeletal: edema present Deviation from normal: Bilateral AKA, 1-2+ pitting edema to extremities Neurological: non-focal Deviation from normal: Drowsy Skin: no rash Pulmonology Consult: Results - Labs Result Diagrams: 06/20/18 04:56 06/20/18 04:56 Pulmonology Consult: A/P - Problem (1) Encephalopathy Current Visit: Yes Code(s): G93.40 - ENCEPHALOPATHY, UNSPECIFIED Status: Acute (2) Pleural effusion, bilateral Current Visit: Yes Code(s): J90 - PLEURAL EFFUSION, NOT ELSEWHERE CLASSIFIED Status: Acute (3) Hepatitis C antibody positive in blood Current Visit: Yes Code(s): R76.8 - OTHER SPECIFIED ABNORMAL IMMUNOLOGICAL FINDINGS IN SERUM Status: Acute (4) Adenocarcinoma, colon Current Visit: No Code(s): C18.9 - MALIGNANT NEOPLASM OF COLON, UNSPECIFIED Status: Acute (5) Atrial fibrillation Current Visit: No Code(s): I48.91 - UNSPECIFIED ATRIAL FIBRILLATION Status: Chronic Qualifiers: (6) CAD (coronary artery disease) Current Visit: No Code(s): I25.10 - ATHSCL HEART DISEASE OF [place] CORONARY ARTERY W/O ANG PCTRS Status: Chronic (7) CKD (chronic kidney disease) stage 3, GFR 30-59 ml/min Current Visit: No Code(s): N18.3 - CHRONIC KIDNEY DISEASE, STAGE 3 (MODERATE) Status: Chronic (8) DM2 (diabetes mellitus, type 2) Current Visit: No Status: Chronic (9) S/P AKA (above knee amputation) bilateral Current Visit: No Code(s): Z89.611 - ACQUIRED ABSENCE OF RIGHT LEG ABOVE KNEE ; Z89.612 - ACQUIRED ABSENCE OF LEFT LEG ABOVE KNEE Status: Chronic - Time Time: 50% of the time was spent in coordination of care (as documented) at patient's floor/unit and/or counseling patient. Time with Patient: greater than 50 minutes - Plan Plan: 1. Encephalopathy - Unclear etiology - Ammonia 17 - Will order ABG to determine cause 2. Bilateral Pleural effusions with ground glass opacities - Will continue coverage with antibiotics with discontinuation of Vancomycin - With underlying lung disease possibility will order steroids as well. - Will order labs to determine auto-immune etiology - Likely secondary to CHF and fluid overload - BNP above baseline - Will opt to diurese with Lasix - If unsuccessful Nephrology may need to be consulted 3. CHF - Home medications - Diuresis as above 4. CAD - Home medications 5. DM2 - Accuchecks and sliding scale 6. Hepatitis C - RUQ US and Abdomen CT showed no evidence of cirrhosis - INR 1.2 - 1.3 - Ammonia 17 - Hep C Quant pending 7. A-fib - Currently rate controlled with anticoagulation - Continue current regimen Disposition: Stable, will attempt to diurese and make appropriate treatment changes as needed. Patient was seen and examined with Dr. Tay Yeung, Pulmonology attending, who is in agreement with plan. Addendum - Attending - Attending Attestation Date/Time: 06/18/18 1700 I personally evaluated the patient and discussed the management with Dr. Naranjo. I agree with the History, Examination, Assessment and Plan documented above with any addition or exceptions noted below. 1. Acute hypoxic respiratory failure. 2. Acute on chronic systolic and diastolic heart failure. 3. Acute kidney injury on CKD IV. Critical care time: 30minutes.
[2018-06-18 12:43] LABS: Actual Bicarbonate (HCO3a) 15.1 mEq/L (22-28); Base Excess (BEa) -8.1 mEq/L (-2.0 to +3.0); Calcium, Ionized 1.11 mmol/L (1.12-1.30); Carboxyhemoglobin (COHb) 1.3 gm% (0.0-3.0); Hemoglobin (Hb) 8.8 g/dL (14.0-18.0); Potassium - ABG Lab 4.58 mmol/L (3.70-5.30); pH, Arterial 7.42 (7.35-7.45)
[2018-06-18 12:45] LABS: CO2 Tension 23.8 mmHg (35.0-45.0)
[2018-06-18 12:46] LABS: O2 Tension (PaO2) 45.8 mmHg (> 80.0)
[2018-06-18] MEDS ORDERED: Vancomycin HCl 750 MG in Sodium Chloride 0.9% 250 ML 250 ML IVPB SCH (15:00)
[2018-06-18] MEDS: Ferrous Sulfate 325 MG TAB PO SCH (16:21)
[2018-06-18 17:16] LABS: CKMB 0.9 ng/mL (0-6.6)
[2018-06-18] MEDS: Famotidine 20 MG TAB PO SCH (20:09)
[2018-06-18] MEDS: Rosuvastatin 20 MG TAB PO SCH (20:09)
[2018-06-18] MEDS: Amitriptyline HCl 25 MG TAB PO SCH (20:09)
[2018-06-18] MEDS: methylPREDNISolone Sod Succ 40 MG VIAL IVP SCH (20:12)
[2018-06-19 05:42] LABS: Hemoglobin 7.9 g/dL (14.0-18.0); Hypochromia SLIGHT = 6-15 cells (100X) (0-5/hpf); Lymphocytes 4 % (21-51); MDiff Complete? YES; Mean Corpuscular HGB CONC 31.1 g/dL (32.0-36.0); Mean Corpuscular Hemoglobin 25.1 pg (27.0-31.0); Mean Corpuscular Volume 80.9 fL (78.0-98.0); Mean Platelet Volume 9.9 fL (7.4-10.4); Monocytes 3 % (0-10); Neutrophil 93 % (42-75); Platelet Count 220 thou/uL (130-400); RBC Distribution Width 15.5 % (11.5-14.5); Red Blood Cell (RBC) Count 3.14 mill/uL (4.70-6.10); White Blood Cell (WBC) Count 14.6 thou/uL (4.8-10.8)
[2018-06-19 05:45] LABS: ALT (SGPT) 191 U/L (8-55); AST (SGOT) 49 U/L (5-34); Albumin 2.9 g/dL (3.5-5.0); Alkaline Phosphatase 134 U/L (40-150); Anion Gap 12 mmol/L (10-20); BUN (Urea Nitrogen) 46 mg/dL (8.4-25.7); Bilirubin, Total 0.7 mg/dL (0.2-1.2); Calc. Creatinine Clearance 24 mL/min (70-130); Calcium 8.4 mg/dL (7.8-10.44); Carbon Dioxide 21 mmol/L (22-29); Chloride 103 mmol/L (98-107); Estimated GFR-MDRD 24; Glucose 137 mg/dL (70-105); Potassium 4.5 mmol/L (3.5-5.1); Protein, Total 5.9 g/dL (6.0-8.3); Sodium 131 mmol/L (136-145)
--- NOTE | 2018-06-19 06:29 | PDOC.FM ---
- Subjective Subjective: Prudencio Calderon seen at bedside this morning. He was on BiPAP overnight and had no acute events. This morning, trial off BiPAP and on NC was attempted and patient did well. States he is feeling much better than he did yesterday. He denies any complaints this morning. Denies fever, chills, chest pain, n/v. - Objective MAR Reviewed: Yes Vital Signs & Weight: Vital Signs (12 hours) Temp Pulse Pulse Ox 06/19/18 04:00 98.4 F 06/19/18 02:27 61 06/19/18 00:00 98.2 F 06/18/18 22:19 58 L 06/18/18 20:00 98.6 F 99 06/18/18 18:35 56 L Weight Admit Weight 74.389 kg Weight 71.1 kg Most Recent Monitor Data Heart Rate from ECG 60 NIBP 137/55 NIBP BP-Mean 82 Respiration from ECG 22 SpO2 100 I&O: 06/17/18 06/18/18 06/19/18 06:59 06:59 06:59 Intake Total 240 260 Output Total 400 1900 Balance -160 -1640 Result Diagrams: 06/19/18 05:05 06/19/18 05:05 Phys Exam - Physical Examination Constitutional: NAD HEENT: moist MMs, sclera anicteric Neck: no JVD, supple, full ROM Respiratory: clear to auscultation bilateral decreased air movement, improved from yesterday, basilar rales b/l Cardiovascular: RRR, no significant murmur Gastrointestinal: soft, non-tender, no distention Musculoskeletal: no edema, pulses present Neurological: non-focal, normal sensation b/l AKAs Psychiatric: normal affect, A&O x 3 Skin: no rash, cap refill <2 seconds Dx/Plan (1) Sepsis Code(s): A41.9 - SEPSIS, UNSPECIFIED ORGANISM Status: Acute (2) Acute on chronic renal failure Code(s): N17.9 - ACUTE KIDNEY FAILURE, UNSPECIFIED; N18.9 - CHRONIC KIDNEY DISEASE, UNSPECIFIED Status: Acute (3) Elevated LFTs Code(s): R94.5 - ABNORMAL RESULTS OF LIVER FUNCTION STUDIES Status: Acute (4) Adenocarcinoma, colon Code(s): C18.9 - MALIGNANT NEOPLASM OF COLON, UNSPECIFIED Status: Acute (5) Atrial fibrillation Code(s): I48.91 - UNSPECIFIED ATRIAL FIBRILLATION Status: Chronic Qualifiers: (6) CAD (coronary artery disease) Code(s): I25.10 - ATHSCL HEART DISEASE OF [place] CORONARY ARTERY W/O ANG PCTRS Status: Chronic (7) CKD (chronic kidney disease) stage 3, GFR 30-59 ml/min Code(s): N18.3 - CHRONIC KIDNEY DISEASE, STAGE 3 (MODERATE) Status: Chronic (8) HLD (hyperlipidemia) Code(s): E78.5 - HYPERLIPIDEMIA, UNSPECIFIED Status: Chronic Qualifiers: (9) HTN (hypertension) Code(s): I10 - ESSENTIAL (PRIMARY) HYPERTENSION Status: Chronic - Plan Plan: Acute respiratory failure with hypoxia: improved - patient became increasing somnolent on 06/18 - ABG showed hypoxia PaO2 45.8, PaCO2 23.5 - tranfers to IMCU last night for BiPAP - Doing well off BiPAP this morning Sepsis without source - Hypothermia 94.4 on admission, WBC elevated, elevated lactic acid on admission with evidence of end organ dysfunction - recent admission: adenocarcinoma of colon s/p resection, no known mets - Continue empiric abx therapy: levaquin 06/17-, zosyn 06/17-, and vancomycin 06/17 - procal has been 0.36 - CT chest showed diffuse patchy nodular infiltrates - Dr. Yeung, Pulm, consulted and has ordered additional labs, appreciate recs Acute on chronic renal failure - 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 Duran, who has been consulted - renal function has started to improve with IVFs - Current CrCl (Cockcroft-Gault) is 24 - will continue to monitor closely Elevated LFS - no history of elevated LFTs - hx of adenocarcinoma of colon, no known mets - could be related to hepatic congestion, we are current diuresing patient - LFTs downtrending - acute hepatitis panel negative Iron def Anemia - Has been downtrending over the last several months - could be related to adenocarcinoma of colon - iron studies showed iron deficiency anemia Hypokalemia: resolved - continue to monitor Hyponatremia: improving - cont to monitor DM2 - on SSI, accuchecks ACHS Hx of A fib - hx of malignancy - continue home anticoagulation Addendum - Attending - Attending Attestation Date/Time: 06/19/18 0840 I personally evaluated the patient and discussed the management with Dr. Nash I agree with the History, Examination, Assessment and Plan documented above with any addition or exceptions noted below. 62 yo male with multiple medical problems admitted for sepsis HD#2 Patient placed on BiPAP last night. Tolerated well. Now on nasal canula. Patient reports feeling better. Abdomen less distended as well per patient. Request liquids due to dry mouth and thrust. VS reviewed. Labs reviewed. Imaging reviewed. Agree with PE as documented. 1. Sepsis with mild lactic acidosis: Cultures pending. Chest CT reviewed. Continue empiric antibiotics until cultures result. Concern for respiratory source but procal negative. Continue to trend. Possibly not related to infection and s/sx related to severe CHF/effusions. 2. Atypical pneumonia vs fluid: Scatter lesions on CXR and CT. Pulmonary dz workup pending. Continue antibiotics at present. Procal negative. Pulm following. 3. Acute rEFHF exacerbation: Elevated BNP. Indeterminant trop noted. No significant ischemia. Continue diuresis. LVEF = 45 to 50%. Strict I/Os. Will need medications adjusted once able to tolerate. 4. Acute respiratory distress: Improved. Now on NC. Bilateral effusions. BiPAP as needed. 5. Bradycardia: No pacemaker. Monitor closely. Hold SA/AV christen agents. Cards as needed. 6. Electrolyte abnormalities: Monitor closely. Trend. Protocol. 7. WILLIS on CKD III: GFR now down to 20s (CKDIV). Monitor renal function closely. Bicarb improving. Nephro following. Trend labs and electrolytes. Will likely worsen due to needed for Lasix. 8. Hep C with transaminitis: Trend. Likely worsening due to fluid overload and right heart failure. New dx. Patient unaware. Imaging reviewed. 9. Uncontrolled DM: Monitor glucose q AC. Treat to prevent ketosis. Adjust basal insulin as needed. Hold orals at this time, concern for bowel edema and poor absorption. 10. hx of CAD s/p CABG x4: No evidence of ischemia Dispo: Monitor in ICU throughout the day. Continue diuresis. Deneen
--- NOTE | 2018-06-19 07:16 | CON ---
DATE OF CONSULTATION: 06/18/2018 CONSULTING PHYSICIAN: REASON FOR CONSULTATION: Acute kidney injury. REASON FOR ADMISSION: Shortness of breath. HISTORY OF PRESENT ILLNESS: This is a 62-year-old male with history of type 2 diabetes, coronary artery disease, hyperlipidemia, came to the hospital with above complaints and was found to have elevated creatinine. Nephrology is consulted. The patient is not able to give a good history. No fever or chills. No nausea or vomiting reported. PAST MEDICAL HISTORY: Positive for type 2 diabetes, coronary artery disease, CKD, hyperlipidemia, and atrial fibrillation. PAST SURGICAL HISTORY: Bilateral below-knee amputation, diskectomy, coronary artery bypass graft, and right hemicolectomy. HOME MEDICATIONS: 1. Diltiazem. 2. Amitriptyline. 3. Xarelto. 4. Nitroglycerin. 5. Glipizide. 6. Crestor. 7. Guaifenesin. 8. Ventolin. 9. Prednisone. 10. Azithromycin. ALLERGIES: NO KNOWN DRUG ALLERGIES. SOCIAL HISTORY: No smoking, alcohol, or illicit drug abuse. FAMILY HISTORY: No significant disease. REVIEW OF SYSTEMS: CONSTITUTIONAL: Negative for weight loss or gain, ability to conduct usual activities. SKIN: Negative for rash, itching. EYES: Negative for double vision, pain. ENT/MOUTH: Negative for nose bleeding, neck stiffness, pain, tenderness. CARDIOVASCULAR: Negative for palpitations, dyspnea on exertion, orthopnea. RESPIRATORY: Negative for , wheezing, cough, hemoptysis, fever or night sweats. GASTROINTESTINAL: Negative for poor appetite, abdominal pain, heartburn, nausea, vomiting, constipation, or diarrhea. GENITOURINARY: Negative for urgency, frequency, dysuria, nocturia. MUSCULOSKELETAL: Negative for pain, swelling. NEUROLOGIC/PSYCHIATRIC: Negative for anxiety, depression. ALLERGY/IMMUNOLOGIC: Negative for skin rash, bleeding tendency. PHYSICAL EXAMINATION: GENERAL: This is a well-built male, in no apparent distress. VITAL SIGNS: Temperature 98.1, pulse 58, respiratory rate 16, and blood pressure 160/72. HEENT: Atraumatic and normocephalic. Oral mucosa moist. NECK: Supple. CV: S1 and S2 heard. Regular rate and rhythm. RESPIRATORY: Clear. GI: Abdomen is soft. MUSCULOSKELETAL: 1+ edema. DERMATOLOGIC: No skin rash. NEUROLOGIC: Alert and awake. PSYCHIATRIC: Normal mood and affect. LABORATORY DATA: Hemoglobin is 8.3. Potassium is 4.8, BUN is 53. Creatinine is 3.6. ASSESSMENT AND PLAN: 1. Acute kidney injury on chronic kidney disease, stage 3. Renal function with improvement. Avoid nephrotoxins. 2. Hyponatremia. 3. Metabolic acidosis, monitor. 4. Continue hydration. 5. Anemia essentially from chronic disease. 6. Hypertension, stable. 7. Creatinine went from 4.1 to 3.3. Avoid nephrotoxins. Continue supportive care including IV fluids as tolerated. Continue close monitoring. Continue antibiotics. Job ID: [id number]
[2018-06-19] MEDS: Famotidine 20 MG TAB PO SCH (07:28)
[2018-06-19] MEDS: Ferrous Sulfate 325 MG TAB PO SCH ×2 (07:28→16:54)
[2018-06-19] MEDS: Furosemide 100 MG/10 ML VIAL SLOW IVP SCH (07:28)
[2018-06-19] MEDS: Piperacillin/Tazobactam 2.25 GM in Sodium Chloride 0.9% 100 ML IVPB SCH ×3 (07:29→23:41)
[2018-06-19] MEDS: methylPREDNISolone Sod Succ 40 MG VIAL IVP SCH (07:29)
[2018-06-19] MEDS: Senokot S 8.6-50 MG TAB PO SCH ×2 (07:49→21:16)
[2018-06-19] MEDS: Rivaroxaban 15 MG TAB PO SCH (07:49)
[2018-06-19] MEDS: Diltiazem HCl CD 300 mg Capsule PO SCH (07:49)
--- NOTE | 2018-06-19 16:25 | PRG ---
DATE OF SERVICE: 06/19/2018 SERVICE: Pulmonary Medicine. INTERVAL HISTORY: The patient is doing really well from respiratory standpoint. Breathing comfortably. He has no complaints of chest pain, fevers, chills, or shortness of breath. His oxygen requirements have dramatically improved. He is currently on 2 L nasal cannula and the saturations are 96%. He has no dyspnea that limits his activity. He is much more awake this morning. PHYSICAL EXAMINATION: VITAL SIGNS: Afebrile, pulse 58, blood pressure 142/58, respirations 28, and saturation 91% on 2 L nasal cannula. GENERAL: The patient is awake and alert, in no apparent distress. LUNGS: Excellent air entry is present. Rhonchi and crackles are both noted. No prolonged expiratory phase or wheezing is appreciated. HEART: Normal rate and regular. ABDOMEN: Soft, nontender, and nondistended. Bowel sounds are positive. MUSCULOSKELETAL: No cyanosis or clubbing. There is diffuse pitting throughout. : Weinberg catheter in place. NEUROLOGIC: Grossly nonfocal. LABORATORY DATA: WBC 14.6, hemoglobin 7.9, and platelets 220,000. Neutrophil count is 93%. ESR is 40. Creatinine is 3.26, which is roughly stable, if not slightly downtrending; BUN 46. Basic metabolic profile is otherwise unremarkable/stable. Sodium is increasing to 131. AST and ALT are beautifully downtrending. Alkaline phosphatase remains unremarkable. CRP is elevated. Procalcitonin is negative x1. Urinalysis is negative. HIV 1 and 2 are nonreactive. Hepatitis C is positive. Blood cultures x2 and urine cultures negative. ASSESSMENT: 1. Acute hypoxic respiratory failure. 2. Metabolic encephalopathy. 3. Pleural effusions, bilateral, associated with volume overload. 4. Chronic kidney disease, stage 4. 5. Ground-glass opacifications with fullness of the interstitium. This is patchy, but may still be associated with volume overload. DISCUSSION AND PLAN: We will follow up on our serologies through time. In the meantime, we are going to continue to diurese him as tolerated. The infiltrates and findings on CT of the chest could be consistent with volume overload. He has made a dramatic recovery over a very short period of time. As such, I do not think that steroids are indicated any longer. Pulmonary/Critical Care will continue to follow along otherwise. Job ID: [id number] [facility]
--- NOTE | 2018-06-19 17:00 | PRG ---
DATE OF SERVICE: 06/19/2018 SUBJECTIVE: Patient was seen and examined at bedside and overnight events noted. Patient denies any shortness of breath or chest pain or palpitation. No history of nausea or vomiting or diarrhea or fever or chills or cramps. OBJECTIVE: GENERAL: This is a well-built male, in no acute distress. VITAL SIGNS: Temperature 98.1. Pulse 61. Respiratory rate 18. Blood pressure 136/81. HEENT: Atraumatic, normocephalic. Oral mucosa is moist NECK: Supple. CARDIOVASCULAR: S1, S2 heard. Rate and rhythm regular. RESPIRATORY: Clear to auscultation. GASTROINTESTINAL: Abdomen is soft. MUSCULOSKELETAL: No tenderness. No edema. DERMATOLOGIC: No skin rash. NEUROLOGIC: Alert and awake and oriented X3. No focal neurologic deficits. Moving all the extremities. PSYCHIATRIC: Mood and affect normal. LABORATORY DATA: Creatinine is 3.2, potassium 4.5. ASSESSMENT AND PLAN: 1. Acute kidney injury on chronic kidney disease. Creatinine is stable on Lasix. 2. Cardiorenal syndrome edema. 3. Hypertension. 4. Anemia. 5. Renal function is stable. Avoid nephrotoxins. monitor closely. Job ID: [id number]
[2018-06-19 17:32] LABS: ANA Symphony (Qualitative) Negative (Negative); ANA Symphony (Quantitative) 0.1 Ratio (< 0.7 Negative); EliA RAS New Method **** NEW METHOD ****; Rheumatoid Factor IgA Antibody 5.8 IU/mL (<14 Negative); dsDNA IgG Antibody 0.8 IU/mL (<10 Negative)
[2018-06-19] MEDS: HumaLOG 300 UNITS/3 ML VIAL SC PRN (21:15)
[2018-06-19] MEDS: Rosuvastatin 20 MG TAB PO SCH (21:16)
[2018-06-19] MEDS: Amitriptyline HCl 25 MG TAB PO SCH (21:16)
[2018-06-20 05:38] LABS: ALT (SGPT) 135 U/L (8-55); AST (SGOT) 24 U/L (5-34); Alkaline Phosphatase 117 U/L (40-150); Anion Gap 16 mmol/L (10-20); BUN (Urea Nitrogen) 52 mg/dL (8.4-25.7); Bilirubin, Total 0.5 mg/dL (0.2-1.2); Calc. Creatinine Clearance 24 mL/min (70-130); Calcium 8.4 mg/dL (7.8-10.44); Carbon Dioxide 19 mmol/L (22-29); Chloride 101 mmol/L (98-107); Estimated GFR-MDRD 23; Glucose 303 mg/dL (70-105); Potassium 4.5 mmol/L (3.5-5.1); Sodium 131 mmol/L (136-145)
--- NOTE | 2018-06-20 05:53 | PDOC.FM ---
- Subjective Subjective: Prudencio Calderon seen at bedside this morning. States that he is feeling much better and his breathing is much improved. There were no acute events overnight. He has no complaints this morning. He denies fever, chills, chest pain, dyspnea, n/v. His net output is approximately -5.5 L. - Objective MAR Reviewed: Yes Vital Signs & Weight: Vital Signs (12 hours) Temp Pulse Ox 06/20/18 03:39 98.8 F 06/19/18 23:26 98.9 F 06/19/18 20:00 92 L 06/19/18 19:39 98.6 F Weight Admit Weight 74.389 kg Weight 71 kg Most Recent Monitor Data Heart Rate from ECG 58 NIBP 128/52 NIBP BP-Mean 77 Respiration from ECG 26 SpO2 93 I&O: 06/18/18 06/19/18 06/20/18 06:59 06:59 06:59 Intake Total 833 195 0770 Output Total 400 2350 6400 Balance -014 -0678 -4973 Result Diagrams: 06/21/18 04:59 06/21/18 04:59 Phys Exam - Physical Examination Constitutional: NAD HEENT: moist MMs, sclera anicteric Neck: supple, full ROM Respiratory: no wheezing, no rales, no rhonchi, clear to auscultation bilateral Cardiovascular: RRR, no significant murmur Gastrointestinal: soft, non-tender, no distention Musculoskeletal: no edema, pulses present Neurological: non-focal, normal sensation Psychiatric: normal affect, A&O x 3 Skin: no rash Dx/Plan (1) Pulmonary edema with congestive heart failure Code(s): I50.1 - LEFT VENTRICULAR FAILURE, UNSPECIFIED Status: Acute (2) Sepsis Code(s): A41.9 - SEPSIS, UNSPECIFIED ORGANISM Status: Suspected (3) Acute on chronic renal failure Code(s): N17.9 - ACUTE KIDNEY FAILURE, UNSPECIFIED; N18.9 - CHRONIC KIDNEY DISEASE, UNSPECIFIED Status: Acute (4) Elevated LFTs Code(s): R94.5 - ABNORMAL RESULTS OF LIVER FUNCTION STUDIES Status: Acute (5) Adenocarcinoma, colon Code(s): C18.9 - MALIGNANT NEOPLASM OF COLON, UNSPECIFIED Status: Acute (6) Atrial fibrillation Code(s): I48.91 - UNSPECIFIED ATRIAL FIBRILLATION Status: Chronic Qualifiers: (7) CAD (coronary artery disease) Code(s): I25.10 - ATHSCL HEART DISEASE OF [place] CORONARY ARTERY W/O ANG PCTRS Status: Chronic (8) CKD (chronic kidney disease) stage 3, GFR 30-59 ml/min Code(s): N18.3 - CHRONIC KIDNEY DISEASE, STAGE 3 (MODERATE) Status: Chronic (9) HLD (hyperlipidemia) Code(s): E78.5 - HYPERLIPIDEMIA, UNSPECIFIED Status: Chronic Qualifiers: (10) HTN (hypertension) Code(s): I10 - ESSENTIAL (PRIMARY) HYPERTENSION Status: Chronic - Plan Plan: Acute respiratory failure with hypoxia: improved - could be related to fluid overload/pulm effusion, patient received 3L NS in ED with hx of CHF - patient became increasing somnolent on 06/18 - ABG showed hypoxia PaO2 45.8, PaCO2 23.5 - BiPAP discontinued morning of 06/19 and patient transferred to IMCU 06/19 - continuing to do well from respiratory standpoint - steroids discontinued - will continue to diurese as tolerated, total I/O: approx -5.5 L Sepsis without source - Hypothermia 94.4 on admission, WBC elevated, elevated lactic acid on admission with evidence of end organ dysfunction - recent admission: adenocarcinoma of colon s/p resection, no known mets - Continue empiric abx therapy: levaquin 06/17-, zosyn 06/17- - procal negative - CT chest showed diffuse patchy nodular infiltrates, could be related to pulmonary edema - Dr. Yeung, Pulm, consulted and has ordered additional labs, appreciate recs Acute on chronic renal failure - 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 Duran, who has been consulted - renal function has started to improve with IVFs - Current CrCl (Cockcroft-Gault) is 24 - will continue to monitor closely Elevated LFS - no history of elevated LFTs - hx of adenocarcinoma of colon, no known mets - could be related to hepatic congestion, we are current diuresing patient - LFTs downtrending - acute hepatitis panel negative Iron def Anemia - Has been downtrending over the last several months - could be related to adenocarcinoma of colon - iron studies showed iron deficiency anemia Hypokalemia: resolved - continue to monitor Hyponatremia: improving - cont to monitor DM2 - on SSI, accuchecks ACHS Hx of A fib - hx of malignancy - continue home anticoagulation Addendum - Attending - Attending Attestation Date/Time: 06/20/18 1421 I personally evaluated the patient and discussed the management with Dr. Nash I agree with the History, Examination, Assessment and Plan documented above with any addition or exceptions noted below. 62 yo male with multiple medical problems admitted for sepsis HD#3 Patient did well yesterday and throughout the night. Reports he feels better. SOB is not as bad. Abdomen still distended. No pain. VS reviewed. Labs reviewed. Imaging reviewed. Agree with PE as documented. 1. Sepsis with mild lactic acidosis: Cultures negative. No source identified. Procal negative. Would consider holding antibx. Afebrile. Possibly not related to infection and s/sx related to severe CHF/effusions. 2. Atypical pneumonia vs Edema/effusion: Scatter lesions on CXR and CT. Pulmonary dz workup pending. Procal negative. Pulm following. Would consider Thoracentisis to idenify infectious vs noninfectious source to help better understand need for antibx as well as to help treatment course. 3. Acute rEFHF exacerbation: Elevated BNP. Indeterminant trop. No significant ischemia. Continue diuresis as tolerated. LVEF = 45 to 50% (03/2018). Strict I/ Os. Unable to restart heart failure meds due to other co-morbid conditions including CKD III/ and bradycardia. 4. Acute respiratory distress 2/2 bilateral severe effusions and pulm edema: Improved. Now on NC. BiPAP as needed. Pulm following. Thorcentisis when able. 5. Bradycardia: No pacemaker. Monitor closely. Hold SA/AV christen agents at present. Cards as needed. 6. Electrolyte abnormalities: Monitor closely. Trend. Protocol. 7. WILLIS on CKD III: GFR now down to 20s (CKDIV). Monitor renal function closely. Bicarb improving. Nephro following. Trend labs and electrolytes. Slowly improving. Hold nephrotoxins so able to give lasix due to pulmonary effusions and edema. 8. Hep C with transaminitis: Trend. Likely worsening due to fluid overload and right heart failure. New dx. Patient unaware. Imaging reviewed. Repeat LFT in AM. 9. Uncontrolled DM: Monitor glucose q AC. Treat to prevent ketosis. Adjust basal insulin as needed. Hold orals at this time, concern for bowel edema and poor absorption. 10. hx of CAD s/p CABG x4: No evidence of ischemia Dispo: Transfer to step down unit. Monitor closely for decline. Deneen
[2018-06-20] MEDS: HumaLOG 300 UNITS/3 ML VIAL SC PRN ×3 (05:55→18:24)
[2018-06-20 06:08] LABS: Band 1 % (5-11); Lymphocytes 4 % (21-51); MDiff Complete? YES; Mean Corpuscular HGB CONC 30.2 g/dL (32.0-36.0); Mean Corpuscular Hemoglobin 24.3 pg (27.0-31.0); Mean Corpuscular Volume 80.3 fL (78.0-98.0); Mean Platelet Volume 10.1 fL (7.4-10.4); Monocytes 5 % (0-10); Neutrophil 90 % (42-75); Platelet Count 253 thou/uL (130-400); RBC Distribution Width 15.7 % (11.5-14.5); Red Blood Cell (RBC) Count 3.28 mill/uL (4.70-6.10)
[2018-06-20 06:38] VITALS: BMI 47.7
[2018-06-20 08:29] LABS: Hemoglobin A1c 6.9 % (4.0-6.0)
--- NOTE | 2018-06-20 09:26 | PRG ---
DATE OF SERVICE: 06/20/2018 SUBJECTIVE: Patient was seen and examined at bedside and overnight events noted. Patient denies any shortness of breath or chest pain or palpitation. No history of nausea or vomiting or diarrhea or fever or chills or cramps. OBJECTIVE: GENERAL: This is a well-built male, in no acute distress. VITAL SIGNS: Temperature 98.3. Heart rate 61. Respiratory rate blood pressure 160/72. HEENT: Atraumatic, normocephalic. Oral mucosa is moist NECK: Supple. CARDIOVASCULAR: S1, S2 heard. Rate and rhythm regular. RESPIRATORY: Clear to auscultation. GASTROINTESTINAL: Abdomen is soft. MUSCULOSKELETAL: No tenderness. No edema. DERMATOLOGIC: No skin rash. NEUROLOGIC: Alert and awake and oriented X3. No focal neurologic deficits. Moving all the extremities. PSYCHIATRIC: Mood and affect normal. LABORATORY DATA: Potassium is 4.5, BUN is 52, creatinine is 3.3. ASSESSMENT AND PLAN: 1. Acute kidney injury on chronic kidney disease, stage 3. Renal function seems to be stable. On diuresis, recommend cautious diuretic administration at this point. 2. Acute hypoxic respiratory failure. 3. Pleural effusion with fluid overload, on diuretics. 4. Edema. 5. Hypertension. 6. Anemia of chronic disease. 7. Cautious diuretic use. Monitor labs and electrolytes closely. Job ID: [id number]
[2018-06-20] MEDS: Piperacillin/Tazobactam 2.25 GM in Sodium Chloride 0.9% 100 ML IVPB SCH ×3 (10:08→23:26)
[2018-06-20] MEDS: Rivaroxaban 15 MG TAB PO SCH (10:09)
[2018-06-20] MEDS: Diltiazem HCl CD 300 mg Capsule PO SCH (10:09)
[2018-06-20] MEDS: Senokot S 8.6-50 MG TAB PO SCH ×2 (10:10→21:37)
[2018-06-20] MEDS: Ferrous Sulfate 325 MG TAB PO SCH ×2 (10:10→18:22)
--- NOTE | 2018-06-20 10:27 | PRG ---
DATE OF SERVICE: 06/20/2018 SERVICE: Pulmonary Medicine. INTERVAL HISTORY: The patient is breathing comfortably. Denies any current chest pain, fevers, or chills. There has been no interval change to his condition. Otherwise, he is resting comfortably. With a little stimulation, he wakes up and is fully alert. PHYSICAL EXAMINATION: VITAL SIGNS: Afebrile, pulse 59, blood pressure 160/72, respirations 29, saturation 94% on 3 L nasal cannula. GENERAL: The patient is awake and alert, in no apparent distress. LUNGS: Crackles are present. No prolonged expiratory phase or wheezing is appreciated. HEART: Normal rate and regular. ABDOMEN: Soft, nontender, nondistended. Bowel sounds are positive. MUSCULOSKELETAL: No cyanosis or clubbing. There is diffuse 1 to 2+ pitting throughout. : No Weinberg. NEUROLOGIC: Grossly nonfocal. LABORATORY DATA: WBC 18.0, hemoglobin 8.0, platelets 253,000. Sodium 131, creatinine 3.33 and roughly stable, BUN 52, gently uptrending. Bicarb 19. Hemoglobin A1c 6.9. AST and ALT are trending into the normal range. Rheumatoid factor and SABRINA screen are unremarkable. ANCA is currently pending. Blood cultures x2 and urine culture are negative. ASSESSMENT: 1. Acute hypoxic respiratory failure, improving. 2. Pleural effusions, bilateral associated with volume overload. 3. Metabolic encephalopathy, resolved. 4. Acute on chronic systolic and diastolic heart failure. 5. Acute kidney injury on chronic kidney disease III. 6. Abnormal CT chest with ground-glass opacification, fullness of the interstitium, and effusions, likely all secondary to volume overload, though inflammatory workup is currently pending. 7. Obstructive sleep apnea, witnessed at bedside. DISCUSSION AND PLAN: The patient has gotten better with nothing more than diuretics. At this point, my suspicion is that we are dealing with primarily a volume mediated event. If we cannot keep him at euvolemia with diuretics, dialysis needs to be considered. Pulmonary Critical Care will continue to follow along, but from my perspective, he is stable for transition out of the [facility] to the medical and/or telemetry units. Job ID: [id number] MTDD
[2018-06-20] MEDS: Furosemide 100 MG/10 ML VIAL SLOW IVP SCH ×2 (12:09→17:45)
--- NOTE | 2018-06-20 13:09 | RAD ---
PORTABLE CHEST: Date: 06/20/18 PROVIDED CLINICAL HISTORY: Dyspnea. COMPARISON: 06/17/18. FINDINGS: The cardiac and mediastinal silhouette is unchanged in appearance. Median sternotomy changes are agai n seen. Right basilar pleural parenchymal opacity appears similar to the prior study. Interval develo pment of diffuse patchy bilateral air space disease. There is no evidence for pneumothorax. IMPRESSION: 1. Development of diffuse bilateral air space disease that may reflect infection or edema. 2. Stable right basilar pleural parenchymal opacity. POS: C
[2018-06-20 16:09] LABS: Hep C PCR-Quant 135000 IU/mL (.)
[2018-06-20] MEDS: Amitriptyline HCl 25 MG TAB PO SCH (21:37)
[2018-06-20] MEDS: Rosuvastatin 20 MG TAB PO SCH (21:37)
[2018-06-20] MEDS: Famotidine 20 MG TAB PO SCH (21:38)
[2018-06-21 05:33] LABS: Anion Gap 14 mmol/L (10-20); BUN (Urea Nitrogen) 41 mg/dL (8.4-25.7); Calc. Creatinine Clearance 30 mL/min (70-130); Calcium 8.8 mg/dL (7.8-10.44); Carbon Dioxide 21 mmol/L (22-29); Chloride 100 mmol/L (98-107); Estimated GFR-MDRD 30; Glucose 92 mg/dL (70-105); Magnesium 1.8 mg/dL (1.6-2.6); Potassium 3.5 mmol/L (3.5-5.1); Sodium 131 mmol/L (136-145)
[2018-06-21 05:42] LABS: Anisocytosis SLIGHT = 6-15 cells (100X) (0-5/hpf); Band 1 % (5-11); Hypochromia SLIGHT = 6-15 cells (100X) (0-5/hpf); Lymphocytes 2 % (21-51); MDiff Complete? YES; Mean Corpuscular Hemoglobin 24.8 pg (27.0-31.0); Mean Corpuscular Volume 79.8 fL (78.0-98.0); Mean Platelet Volume 9.6 fL (7.4-10.4); Monocytes 1 % (0-10); Neutrophil 96 % (42-75); Platelet Count 292 thou/uL (130-400); Platelet Morphology Comment Appears Adequate; Polychromasia SLIGHT = 2-3 cells (100X) (0-2/hpf); RBC Distribution Width 15.9 % (11.5-14.5); Red Blood Cell (RBC) Count 3.64 mill/uL (4.70-6.10); White Blood Cell (WBC) Count 27.4 thou/uL (4.8-10.8)
--- NOTE | 2018-06-21 05:54 | PDOC.FM ---
- Subjective Subjective: Prudencio Calderon seen at bedside this morning. He had increased work of breathing overnight and despite nursing recommendations, refused to wear BiPAP until this morning. She is breathing better on BiPAP. He had negative 400 mL out over the last 24 hours. He continues to be on xarelto for vte ppx. He also had an increase in his white count overnight. He denies any other changes, denies fever, chills, sweats, chest pain, n/v, abdominal pain. It appears that he is positive for Hep C as well. - Objective MAR Reviewed: Yes Vital Signs & Weight: Vital Signs (12 hours) Temp Pulse Ox 06/21/18 03:49 99.4 F 06/21/18 00:00 99.3 F 06/20/18 20:00 98.4 F 90 L Weight Admit Weight 74.389 kg Weight 72.076 kg Most Recent Monitor Data Heart Rate from ECG 101 NIBP 164/80 NIBP BP-Mean 108 Respiration from ECG 33 SpO2 100 I&O: 06/19/18 06/20/18 06/21/18 06:59 06:59 06:59 Intake Total 260 3890 1890 Output Total 2350 6575 2150 Balance -2090 -2685 -260 Result Diagrams: 06/21/18 04:59 06/21/18 04:59 Phys Exam - Physical Examination sitting up in bed on BiPAP HEENT: moist MMs, sclera anicteric Neck: no JVD, supple, full ROM Respiratory: no wheezing, no rhonchi bilateral rales, R>L Cardiovascular: RRR, no rub Gastrointestinal: soft, non-tender, no distention, positive bowel sounds Musculoskeletal: no edema, pulses present Neurological: non-focal, normal sensation Psychiatric: normal affect, A&O x 3 Skin: no rash, cap refill <2 seconds Dx/Plan (1) Pulmonary edema with congestive heart failure Code(s): I50.1 - LEFT VENTRICULAR FAILURE, UNSPECIFIED Status: Acute (2) Sepsis Code(s): A41.9 - SEPSIS, UNSPECIFIED ORGANISM Status: Suspected (3) Acute on chronic renal failure Code(s): N17.9 - ACUTE KIDNEY FAILURE, UNSPECIFIED; N18.9 - CHRONIC KIDNEY DISEASE, UNSPECIFIED Status: Acute (4) Elevated LFTs Code(s): R94.5 - ABNORMAL RESULTS OF LIVER FUNCTION STUDIES Status: Acute (5) Adenocarcinoma, colon Code(s): C18.9 - MALIGNANT NEOPLASM OF COLON, UNSPECIFIED Status: Acute (6) Atrial fibrillation Code(s): I48.91 - UNSPECIFIED ATRIAL FIBRILLATION Status: Chronic Qualifiers: (7) CAD (coronary artery disease) Code(s): I25.10 - ATHSCL HEART DISEASE OF [place] CORONARY ARTERY W/O ANG PCTRS Status: Chronic (8) CKD (chronic kidney disease) stage 3, GFR 30-59 ml/min Code(s): N18.3 - CHRONIC KIDNEY DISEASE, STAGE 3 (MODERATE) Status: Chronic (9) HLD (hyperlipidemia) Code(s): E78.5 - HYPERLIPIDEMIA, UNSPECIFIED Status: Chronic Qualifiers: (10) HTN (hypertension) Code(s): I10 - ESSENTIAL (PRIMARY) HYPERTENSION Status: Chronic - Plan Plan: Acute respiratory failure with hypoxia: - could be related to fluid overload/pulm effusion, patient received 3L NS in ED with hx of CHF - patient became increasing somnolent on 06/18 - ABG showed hypoxia PaO2 45.8, PaCO2 23.5, and patient transferred to [facility] for BiPAP - BiPAP discontinued morning of 06/19 - overnight had increased respiratory distress - steroids discontinued by Pulm on 06/20 - will continue to diurese as tolerated, total I/O: approx -5 L Sepsis without source - Hypothermia 94.4 on admission, WBC elevated, elevated lactic acid on admission with evidence of end organ dysfunction - recent admission: adenocarcinoma of colon s/p resection, no known mets - Continue empiric abx therapy: levaquin 06/17-, zosyn 06/17- - procal 0.36 - CT chest showed diffuse patchy nodular infiltrates, could be related to pulmonary edema - Dr. Yeung, Pulm, consulted and has ordered additional labs, appreciate recs Acute on chronic renal failure - 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 Duran, who has been consulted - Current CrCl (Cockcroft-Gault) is 30 - will continue to monitor closely Elevated LFS - no history of elevated LFTs - hx of adenocarcinoma of colon, no known mets - LFTs downtrending - Hep C Ab positive, Hep C RNA positive - will need outpatient follow up for tx of Hep C Iron def Anemia - Has been downtrending over the last several months - could be related to adenocarcinoma of colon - iron studies showed iron deficiency anemia Hypokalemia: resolved - continue to monitor Hyponatremia: improving - cont to monitor DM2 - on SSI, accuchecks ACHS Hx of A fib - hx of malignancy - continue home anticoagulation Addendum - Attending - Attending Attestation Date/Time: 06/21/18 1500 I personally evaluated the patient and discussed the management with Dr. Nash I agree with the History, Examination, Assessment and Plan documented above with any addition or exceptions noted below. 62 yo male with multiple medical problems admitted for sepsis HD#4 Patient placed on BiPAP today. Now off. Reports he is feeling better. Required Bipap last night but refused. VS reviewed. Labs reviewed. Imaging reviewed. Agree with PE as documented. 1. Sepsis with mild lactic acidosis: Improving. Cultures negative. No source identified. Procal negative. Would consider holding antibx. Afebrile. Possibly not related to infection and s/sx related to severe CHF/effusions. 2. Atypical pneumonia vs Edema/effusion: Scatter lesions on CXR and CT. Pulmonary dz workup pending. Procal negative. Pulm following. Would consider Thoracentisis to idenify infectious vs noninfectious source to help better understand need for antibx as well as to help treatment course. Consider viral etiology if infectious. Low concern for bacterial at this time. 3. Acute rEFHF exacerbation: Elevated BNP. Indeterminant trop. No significant ischemia. Continue diuresis as tolerated. LVEF = 45 to 50% (03/2018). Strict I/ Os. Consider restarting heart failure meds today. 4. Acute respiratory distress 2/2 bilateral severe effusions and pulm edema: Improved. Now on NC. BiPAP as needed. Pulm following. Thorcentisis when able. 5. Bradycardia now resolved: May restart meds. 6. Electrolyte abnormalities: Monitor closely. Trend. Protocol. 7. WILLIS on CKD III: Slowing improving. Tolerating diuresis well. Monitor renal function closely. Nephro following. Trend labs and electrolytes. 8. Hep C with transaminitis: Trend. Likely worsening due to fluid overload and right heart failure. New dx. Patient unaware. Imaging reviewed. Repeat LFT in AM. 9. Uncontrolled DM: Monitor glucose q AC. Treat to prevent ketosis. Adjust basal insulin as needed. Hold orals at this time, concern for bowel edema and poor absorption. 10. hx of CAD s/p CABG x4: No evidence of ischemia Dispo: Guarded. Continue in IMCU. Deneen
--- NOTE | 2018-06-21 09:33 | RAD ---
EXAM: Chest one view: HISTORY: Difficulty breathing COMPARISON: 06/20/2018 FINDINGS: Postop midline sternotomy changes. Monitor leads overlie the chest. Heart size: Within normal limits. The lungs: Extensive bilateral alveolar opacities throughout the lungs somewhat more dense in the rig ht lower lobe. Bilateral pleural effusions greater on the right side. No pneumothorax. Somewhat generalized increase d density throughout both lungs. Continued short-term follow-up. IMPRESSION: No significant acute intrathoracic disease.
[2018-06-21] MEDS: Ferrous Sulfate 325 MG TAB PO SCH ×2 (09:56→17:04)
[2018-06-21] MEDS: Furosemide 100 MG/10 ML VIAL SLOW IVP SCH (09:57)
[2018-06-21] MEDS: Senokot S 8.6-50 MG TAB PO SCH ×2 (09:57→20:18)
[2018-06-21] MEDS: Piperacillin/Tazobactam 2.25 GM in Sodium Chloride 0.9% 100 ML IVPB SCH ×3 (09:59→23:18)
[2018-06-21] MEDS: Diltiazem HCl CD 300 mg Capsule PO SCH (10:00)
[2018-06-21] MEDS: Rivaroxaban 15 MG TAB PO SCH (10:01)
--- NOTE | 2018-06-21 10:29 | PRG ---
DATE OF SERVICE: 06/21/2018 SUBJECTIVE: Patient was seen and examined at bedside and overnight events noted. Patient denies any shortness of breath or chest pain or palpitation. No history of nausea or vomiting or diarrhea or fever or chills or cramps. OBJECTIVE: GENERAL: This is a well-built male, in no apparent distress. VITAL SIGNS: Temperature 99.6. Heart rate 97. Respiratory rate 32. Blood pressure 161/80. HEENT: Atraumatic, normocephalic. Oral mucosa is moist NECK: Supple. CARDIOVASCULAR: S1, S2 heard. Rate and rhythm regular. RESPIRATORY: Clear to auscultation. GASTROINTESTINAL: Abdomen is soft. MUSCULOSKELETAL: No tenderness. No edema. DERMATOLOGIC: No skin rash. NEUROLOGIC: Alert and awake and oriented X3. No focal neurologic deficits. Moving all the extremities. PSYCHIATRIC: Mood and affect normal. LABORATORY DATA: Potassium is 3.5, BUN is 41, and creatinine is 2.0. ASSESSMENT AND PLAN: 1. Acute kidney injury on chronic kidney disease, stage 3, stable. 2. Acute hypoxic respiratory failure. 3. Cardiorenal syndrome. 4. Hypertension. 5. Anemia. Renal function better. Avoid nephrotoxins. We will follow. Cautious use of diuretics recommend. Job ID: [id number]
--- NOTE | 2018-06-21 11:52 | PRG ---
DATE OF SERVICE: 06/21/2018 SUBJECTIVE: The patient continues to be short of breath and requires BiPAP intermittently at night. OBJECTIVE: VITAL SIGNS: On exam, his temperature is 99.6, pulse 97, blood pressure 161/80, O2 saturation in the low 90s, on nasal cannula. HEENT: Unremarkable. NECK: No JVD. LUNGS: Bilateral harsh expiratory crackles. CARDIAC: S1, S2. Regular. ABDOMEN: Soft. EXTREMITIES: Bilateral [id number] amputations. LABORATORY DATA: White blood cell count 27.4, hemoglobin 9, hematocrit 29.1, and platelet count 292. Sodium 131, potassium 3.5, chloride 100, CO2 is 21, BUN 41, creatinine 2.6, glucose 92. ASSESSMENT: 1. Bilateral effusions and volume overload. 2. Acute hypoxic respiratory failure. 3. Acute kidney injury. PLAN: 1. Continue intermittent BiPAP as needed for respiratory symptoms. He continues on empiric antibiotics. I am not sure why his white count has bumped up despite that. 2. I would advocate fluid removal as much as possible. Job ID: [id number]
[2018-06-21 16:09] LABS: Cytoplasmic (C-ANCA) <1:20 titer (Neg:<1:20); Myeloperoxidase AutoAbs <9.0 U/mL (0.0-9.0); Perinuclear (P-ANCA) <1:20 titer (Neg:<1:20); Proteinase-3 AutoAbs Less than 3.5 U/mL (0.0-3.5)
[2018-06-21] MEDS: Amitriptyline HCl 25 MG TAB PO SCH (20:16)
[2018-06-21] MEDS: Famotidine 20 MG TAB PO SCH (20:16)
[2018-06-21] MEDS: Rosuvastatin 20 MG TAB PO SCH (20:16)
[2018-06-22 04:59] LABS: #Eosinphils 0.5 thou/uL (0.0-0.7); #Monocytes 2.1 thou/uL (0.11-0.59); #Neutrophils 16.5 thou/uL (1.40-6.50); %Basophils 0.1 % (0.0-1.0); %Eosinophils 2.5 % (0.0-10.0); %Lymphocytes 4.8 % (21.0-51.0); %Monocytes 10.3 % (0.0-10.0); %Neutrophils 82.3 % (42.0-75.0); Hemoglobin 8.7 g/dL (14.0-18.0); Mean Corpuscular HGB CONC 30.7 g/dL (32.0-36.0); Mean Corpuscular Hemoglobin 24.2 pg (27.0-31.0); Mean Corpuscular Volume 78.7 fL (78.0-98.0); Mean Platelet Volume 9.2 fL (7.4-10.4); Platelet Count 227 thou/uL (130-400); RBC Distribution Width 15.8 % (11.5-14.5); Red Blood Cell (RBC) Count 3.59 mill/uL (4.70-6.10); White Blood Cell (WBC) Count 20.1 thou/uL (4.8-10.8)
[2018-06-22 05:17] LABS: Anion Gap 15 mmol/L (10-20); BUN (Urea Nitrogen) 28 mg/dL (8.4-25.7); Calc. Creatinine Clearance 36 mL/min (70-130); Calcium 8.3 mg/dL (7.8-10.44); Carbon Dioxide 18 mmol/L (22-29); Chloride 102 mmol/L (98-107); Estimated GFR-MDRD 37; Glucose 82 mg/dL (70-105); Potassium 3.3 mmol/L (3.5-5.1); Sodium 132 mmol/L (136-145)
[2018-06-22 05:25] LABS: ALT (SGPT) 50 U/L (8-55); AST (SGOT) 10 U/L (5-34); Albumin 1.5 g/dL (3.5-5.0); Alkaline Phosphatase 40 U/L (40-150); Bilirubin, Direct 0.3 mg/dL (0.1-0.3); Bilirubin, Total 0.2 mg/dL (0.2-1.2); Protein, Total 3.7 g/dL (6.0-8.3)
--- NOTE | 2018-06-22 06:20 | PDOC.FM ---
- Subjective Subjective: Patient on BiPAP this AM stating he was short of breath. He felt he had excess fluids in his lungs. Upon re-evaluation, patient without BiPAP machine, satting well, and not in any distress. No significant overnight events. - Objective MAR Reviewed: Yes Vital Signs & Weight: Vital Signs (12 hours) Temp Pulse Pulse Ox 06/22/18 03:35 98.0 F 06/22/18 02:15 94 06/21/18 23:37 98.5 F 06/21/18 20:00 99 06/21/18 19:22 97.9 F Weight Admit Weight 74.389 kg Weight 71.395 kg Most Recent Monitor Data Heart Rate from ECG 94 NIBP 139/74 NIBP BP-Mean 95 Respiration from ECG 28 SpO2 100 I&O: 06/20/18 06/21/18 06/22/18 06:59 06:59 06:59 Intake Total 3890 1840 1360 Output Total 6519 2330 1975 [facility] -[id number] -490 -615 Result Diagrams: 06/22/18 04:53 06/22/18 04:53 EKG Reviewed by me: Yes Radiology Reviewed by me: Yes Phys Exam - Physical Examination Constitutional: NAD HEENT: moist MMs Bibasilar crackles Cardiovascular: RRR Gastrointestinal: soft Mildly distended Bilateral AKA Neurological: non-focal Psychiatric: normal affect, A&O x 3 Skin: no rash, cap refill <2 seconds Dx/Plan (1) Acute on chronic renal failure Code(s): N17.9 - ACUTE KIDNEY FAILURE, UNSPECIFIED; N18.9 - CHRONIC KIDNEY DISEASE, UNSPECIFIED Status: Acute (2) Hepatitis C antibody positive in blood Code(s): R76.8 - OTHER SPECIFIED ABNORMAL IMMUNOLOGICAL FINDINGS IN SERUM Status: Acute (3) Pleural effusion, bilateral Code(s): J90 - PLEURAL EFFUSION, NOT ELSEWHERE CLASSIFIED Status: Acute (4) Pulmonary edema with congestive heart failure Code(s): I50.1 - LEFT VENTRICULAR FAILURE, UNSPECIFIED Status: Acute (5) Sepsis Code(s): A41.9 - SEPSIS, UNSPECIFIED ORGANISM Status: Suspected (6) Iron deficiency anemia due to chronic blood loss Code(s): D50.0 - IRON DEFICIENCY ANEMIA SECONDARY TO BLOOD LOSS (CHRONIC) Status: Acute (7) Atrial fibrillation Code(s): I48.91 - UNSPECIFIED ATRIAL FIBRILLATION Status: Chronic Qualifiers: (8) CAD (coronary artery disease) Code(s): I25.10 - ATHSCL HEART DISEASE OF [place] CORONARY ARTERY W/O ANG PCTRS Status: Chronic (9) CKD (chronic kidney disease) stage 3, GFR 30-59 ml/min Code(s): N18.3 - CHRONIC KIDNEY DISEASE, STAGE 3 (MODERATE) Status: Chronic (10) Chronic combined systolic (congestive) and diastolic (congestive) heart failure Code(s): I50.42 - CHRONIC COMBINED SYSTOLIC AND DIASTOLIC HRT FAIL Status: Chronic (11) DM2 (diabetes mellitus, type 2) Status: Chronic (12) HLD (hyperlipidemia) Code(s): E78.5 - HYPERLIPIDEMIA, UNSPECIFIED Status: Chronic Qualifiers: (13) HTN (hypertension) Code(s): I10 - ESSENTIAL (PRIMARY) HYPERTENSION Status: Chronic (14) S/P AKA (above knee amputation) bilateral Code(s): Z89.611 - ACQUIRED ABSENCE OF RIGHT LEG ABOVE KNEE; Z89.612 - ACQUIRED ABSENCE OF LEFT LEG ABOVE KNEE Status: Chronic (15) Tobacco abuse Code(s): Z72.0 - TOBACCO USE Status: Chronic - Plan Plan: Acute respiratory failure with hypoxia: - could be related to fluid overload/pulm effusion, patient received 3L NS in ED with hx of CHF - patient became increasingly somnolent on 06/18 - ABG showed hypoxia PaO2 45.8, PaCO2 23.5, and patient transferred to IMCU for BiPAP - BiPAP discontinued morning of 06/19; however, patient continues to use PRN - steroids discontinued by Pulm on 06/20 - will continue to diurese as tolerated, total I/O: approx -7 L Sepsis without source - Hypothermia 94.4 F on admission, WBC elevated, elevated lactic acid on admission with evidence of end organ dysfunction - recent admission: adenocarcinoma of colon s/p resection, no known mets - Continue empiric abx therapy: levaquin 06/17-, zosyn 06/17-; will consider consolidation of antibiotics - procal negative at 0.36 - CT chest showed diffuse patchy nodular infiltrates, could be related to pulmonary edema vs. atypical pneumonia - Dr. 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 Duran, who has been consulted - will continue to monitor closely - avoid nephrotoxic agents Elevated LFTs - no history of elevated LFTs - hx of adenocarcinoma of colon, no known mets - LFTs have downtrended to normal - Hep C Ab positive, Hep C RNA positive - will need outpatient follow up for tx of Hep C - will check total hep B core ab today - RUQ sono showed mild RUQ ascites - Abdomen/Pelvis CT shows mild ascites and stool retention Iron def Anemia - Has been downtrending over the last several months - could be related to adenocarcinoma of colon - iron studies showed iron deficiency anemia - stable at this time Hypokalemia - continue to monitor - replace K PRN Hyponatremia: improving - cont to monitor DM2 - on SSI, accuchecks ACHS Hx of A fib - hx of malignancy - continue home anticoagulation Dispo: Continue diuresis. Will consolidate antibiotics.
[2018-06-22] MEDS ORDERED: Potassium Chloride 20 MEQ TAB PO SCH (06:30)
[2018-06-22] MEDS: Guaifenesin DM 100-10/5 ML UDCUP PO PRN ×2 (07:06→21:35)
--- NOTE | 2018-06-22 10:09 | PRG ---
DATE OF SERVICE: 06/22/2018 SUBJECTIVE: Patient was seen and examined at bedside and overnight events noted. Patient denies any shortness of breath or chest pain or palpitation. No history of nausea or vomiting or diarrhea or fever or chills or cramps. OBJECTIVE: GENERAL: This is a well-built male, in no apparent distress. VITAL SIGNS: Temperature 99.5. Heart rate 90. Respiratory rate 20. Blood pressure 138/75. HEENT: Atraumatic, normocephalic. Oral mucosa is moist NECK: Supple. CARDIOVASCULAR: S1, S2 heard. Rate and rhythm regular. RESPIRATORY: Clear to auscultation. GASTROINTESTINAL: Abdomen is soft. MUSCULOSKELETAL: No tenderness. No edema. DERMATOLOGIC: No skin rash. NEUROLOGIC: Alert and awake and oriented X3. No focal neurologic deficits. Moving all the extremities. PSYCHIATRIC: Mood and affect normal. LABORATORY DATA: Potassium 3.3, BUN is 28, creatinine is 2.1. ASSESSMENT AND PLAN: 1. Acute kidney injury on chronic kidney disease, stage 3, with improvement. 2. Acute hypoxic respiratory failure. 3. Hypokalemia, replaced. 4. Cardiorenal syndrome, on Lasix. 5. Hypertension. 6. Anemia. 7. Hyponatremia, limit fluid intake. Plan to continue on dialysis as tolerated. Job ID: [id number]
[2018-06-22] MEDS: Senokot S 8.6-50 MG TAB PO SCH ×2 (10:35→21:33)
[2018-06-22] MEDS: Ferrous Sulfate 325 MG TAB PO SCH ×2 (10:35→17:57)
[2018-06-22] MEDS: Diltiazem HCl CD 300 mg Capsule PO SCH (10:36)
[2018-06-22] MEDS: Furosemide 100 MG/10 ML VIAL SLOW IVP SCH (10:36)
[2018-06-22] MEDS: Rivaroxaban 15 MG TAB PO SCH (10:36)
[2018-06-22] MEDS: Piperacillin/Tazobactam 2.25 GM in Sodium Chloride 0.9% 100 ML IVPB SCH (10:37)
--- NOTE | 2018-06-22 10:48 | PRG ---
DATE OF SERVICE: 06/22/2018 SUBJECTIVE: The patient continues to be short of breath. He is placed back on BiPAP this morning. OBJECTIVE: VITAL SIGNS: Temperature is 99.5, pulse 102, blood pressure 138/75, O2 saturation 99%. A 24-hour intake 1360, output 1975. Weight 157 pounds. HEENT: Unremarkable. NECK: No JVD. LUNGS: Fairly clear. CARDIAC: S1 and S2 regular. ABDOMEN: Soft. EXTREMITIES: Bilateral [id number] amputations. LABORATORY DATA: White blood cell count 20, hematocrit 28.3, platelet count 227. Sodium 133, potassium 3.3, chloride 102, CO2 of 18, BUN 28, creatinine 2.3, glucose 82. ASSESSMENT: 1. Bilateral effusions and volume overload, which appears slightly better compared to yesterday. 2. Acute kidney injury. 3. Vascular disease. PLAN: 1. Would continue with diuresis and BiPAP as you are doing. 2. Consider consolidating antibiotics. Job ID: [id number]
--- NOTE | 2018-06-22 11:35 | PRG ---
DATE OF SERVICE: 06/22/2018 Mr. Calderon has been admitted with possible exacerbation of heart failure, as well as pneumonia. However, he is still running a very high white count. He had some interesting lab results, which revealed the likelihood that he has active hepatitis C. He will need to be immunized against hepatitis A and B, and referred for treatment after this hospitalization. He is still short of breath and still possibly slightly fluid overloaded. We will continue with antibiotics and continue following with the Pulmonary Service in addition to arranging treatment for his hep C and immunization against A and B. Job ID: [id number]
[2018-06-22 13:12] LABS: Hep B Core Total Ab Non-Reactive (NonReactive); Hep B Core Total Index 0.24 S/CO (0-0.79)
[2018-06-22] MEDS: Rosuvastatin 20 MG TAB PO SCH (21:32)
[2018-06-22] MEDS: Amitriptyline HCl 25 MG TAB PO SCH (21:32)
[2018-06-22] MEDS: Benzonatate 100 MG CAP PO PRN (21:32)
[2018-06-22] MEDS: Famotidine 20 MG TAB PO SCH (21:32)
[2018-06-22] MEDS: Melatonin 3 MG TAB PO PRN (21:33)
[2018-06-23 06:30] LABS: Anion Gap 10 mmol/L (10-20); BUN (Urea Nitrogen) 22 mg/dL (8.4-25.7); Calc. Creatinine Clearance 38 mL/min (70-130); Calcium 8.1 mg/dL (7.8-10.44); Carbon Dioxide 25 mmol/L (22-29); Chloride 100 mmol/L (98-107); Estimated GFR-MDRD 39; Glucose 95 mg/dL (70-105); Potassium 4.2 mmol/L (3.5-5.1); Sodium 131 mmol/L (136-145)
[2018-06-23 06:39] LABS: Band 1 % (5-11); Hemoglobin 8.2 g/dL (14.0-18.0); Hypochromia SLIGHT = 6-15 cells (100X) (0-5/hpf); Lymphocytes 4 % (21-51); MDiff Complete? YES; Mean Corpuscular HGB CONC 31.2 g/dL (32.0-36.0); Mean Corpuscular Hemoglobin 24.7 pg (27.0-31.0); Mean Corpuscular Volume 79.1 fL (78.0-98.0); Mean Platelet Volume 9.5 fL (7.4-10.4); Monocytes 1 % (0-10); Neutrophil 94 % (42-75); Platelet Count 185 thou/uL (130-400); Platelet Morphology Comment Appears Adequate; RBC Distribution Width 15.9 % (11.5-14.5); Red Blood Cell (RBC) Count 3.31 mill/uL (4.70-6.10)
[2018-06-23] MEDS: Diltiazem HCl CD 300 mg Capsule PO SCH (08:11)
[2018-06-23] MEDS: Ferrous Sulfate 325 MG TAB PO SCH ×2 (08:11→17:49)
[2018-06-23] MEDS: Rivaroxaban 15 MG TAB PO SCH (08:12)
[2018-06-23] MEDS: Furosemide 100 MG/10 ML VIAL SLOW IVP SCH (08:12)
[2018-06-23] MEDS: Senokot S 8.6-50 MG TAB PO SCH ×2 (08:12→20:47)
--- NOTE | 2018-06-23 11:11 | PDOC.FM ---
- Subjective Subjective: Patient doing well this AM. No significant overnight. Patient sitting up in bed this AM. He states his breathing is much improved. He questioned when he could go home. I mentioned SNF placement vs rehab and patient was adamant he go home. 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 - Objective MAR Reviewed: Yes Vital Signs & Weight: Vital Signs (12 hours) Temp Pulse 06/23/18 08:11 102 H 06/23/18 04:00 98.4 F 06/23/18 02:33 102 H 06/22/18 23:57 99.4 F Weight Admit Weight 74.389 kg Weight 71.668 kg Most Recent Monitor Data Heart Rate from ECG 97 NIBP 146/71 NIBP BP-Mean 96 Respiration from ECG 25 SpO2 100 I&O: 06/22/18 06/23/18 06/24/18 06:59 06:59 06:59 Intake Total 1360 1760 Output Total 1975 1981 Balance -615 -790 Result Diagrams: 06/23/18 06:08 06/23/18 06:08 EKG Reviewed by me: Yes Radiology Reviewed by me: Yes Phys Exam - Physical Examination Constitutional: NAD HEENT: moist MMs Neck: supple Bilateral bibasilar crackles > left Cardiovascular: RRR, no significant murmur Gastrointestinal: soft, non-tender Musculoskeletal: no edema, pulses present Neurological: non-focal, moves all 4 limbs Psychiatric: normal affect, A&O x 3 Skin: no rash, cap refill <2 seconds Dx/Plan (1) Pulmonary edema with congestive heart failure Code(s): I50.1 - LEFT VENTRICULAR FAILURE, UNSPECIFIED Status: Acute (2) Acute on chronic renal failure Code(s): N17.9 - ACUTE KIDNEY FAILURE, UNSPECIFIED; N18.9 - CHRONIC KIDNEY DISEASE, UNSPECIFIED Status: Acute (3) Hepatitis C antibody positive in blood Code(s): R76.8 - OTHER SPECIFIED ABNORMAL IMMUNOLOGICAL FINDINGS IN SERUM Status: Acute (4) Pleural effusion, bilateral Code(s): J90 - PLEURAL EFFUSION, NOT ELSEWHERE CLASSIFIED Status: Acute (5) Sepsis Code(s): A41.9 - SEPSIS, UNSPECIFIED ORGANISM Status: Suspected (6) Iron deficiency anemia due to chronic blood loss Code(s): D50.0 - IRON DEFICIENCY ANEMIA SECONDARY TO BLOOD LOSS (CHRONIC) Status: Acute (7) Atrial fibrillation Code(s): I48.91 - UNSPECIFIED ATRIAL FIBRILLATION Status: Chronic Qualifiers: (8) CAD (coronary artery disease) Code(s): I25.10 - ATHSCL HEART DISEASE OF [place] CORONARY ARTERY W/O ANG PCTRS Status: Chronic (9) CKD (chronic kidney disease) stage 3, GFR 30-59 ml/min Code(s): N18.3 - CHRONIC KIDNEY DISEASE, STAGE 3 (MODERATE) Status: Chronic (10) Chronic combined systolic (congestive) and diastolic (congestive) heart failure Code(s): I50.42 - CHRONIC COMBINED SYSTOLIC AND DIASTOLIC HRT FAIL Status: Chronic (11) DM2 (diabetes mellitus, type 2) Status: Chronic (12) HLD (hyperlipidemia) Code(s): E78.5 - HYPERLIPIDEMIA, UNSPECIFIED Status: Chronic Qualifiers: (13) HTN (hypertension) Code(s): I10 - ESSENTIAL (PRIMARY) HYPERTENSION Status: Chronic (14) S/P AKA (above knee amputation) bilateral Code(s): Z89.611 - ACQUIRED ABSENCE OF RIGHT LEG ABOVE KNEE; Z89.612 - ACQUIRED ABSENCE OF LEFT LEG ABOVE KNEE Status: Chronic (15) Tobacco abuse Code(s): Z72.0 - TOBACCO USE Status: Chronic - Plan Plan: Acute respiratory failure with hypoxia: - could be related to fluid overload/pulm effusion, patient received 3L NS in ED with hx of CHF - patient became increasingly somnolent on 06/18 - ABG showed hypoxia PaO2 45.8, PaCO2 23.5, and patient transferred to [facility] for BiPAP - BiPAP discontinued morning of 06/19; however, patient continues to use PRN at night; likely sleep apnea that has not been officially diagnosed. Patient was supposed to get sleep study done as outpatient but never did - steroids discontinued by Pulm on 06/20 - will continue to diurese as tolerated; transition to PO lasix, total I/O: approx -9 L - patient may have underlying COPD d/t tobacco use history contributing to need for O2. No pulmonary HTN on echo. Patient may need O2 for home. Attempting to titrate down as tolerated. Possible sepsis without source - Hypothermia 94.4 F on admission, WBC elevated, elevated lactic acid on admission with evidence of end organ dysfunction - recent admission: adenocarcinoma of colon s/p resection, no known mets - Continue empiric abx therapy: d/c antibiotic therapy after tomorrow (total of 7 days) - procal negative at 0.36 - CT chest showed diffuse patchy nodular infiltrates, could be related to pulmonary edema vs. atypical pneumonia - Dr. 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 Duran, who has been consulted - will continue to monitor closely; improving daily, appears to be at baseline - avoid nephrotoxic agents Elevated LFTs - no history of elevated LFTs - hx of adenocarcinoma of colon, no known mets - LFTs have downtrended to normal - Hep C Ab positive, Hep C RNA positive - will need outpatient follow up for tx of Hep C - Hep B and Hep A negative - RUQ sono showed mild RUQ ascites - Abdomen/Pelvis CT shows mild ascites and stool retention Iron def Anemia - Has been downtrending over the last several months - could be related to adenocarcinoma of colon - iron studies showed iron deficiency anemia - stable at this time Hypokalemia - continue to monitor - replace K PRN Hyponatremia: improving - cont to monitor DM2 - on SSI, accuchecks ACHS Hx of A fib - hx of malignancy - continue home anticoagulation Dispo: Continue diuresis. Titrate off O2 as tolerated. Evaluate for need for home O2. CM consult for placement.
[2018-06-23] MEDS ORDERED: Non-Formulary Item 1 EACH (Acetaminophen [Tylenol] 650 MG) PO PRN (11:28)
--- NOTE | 2018-06-23 11:35 | PRG ---
DATE OF SERVICE: 06/23/2018 SUBJECTIVE: Mr. Calderon is better today. He is not wearing the BiPAP this morning. OBJECTIVE: VITAL SIGNS: On exam, temperature 98.4, pulse 97, blood pressure 146/71, O2 saturation 100%. A 24-hour intake 1760, output 1981. HEENT: Unremarkable. NECK: No JVD. LUNGS: Inspiratory crackles bilaterally. CARDIAC: S1, S2. Regular. ABDOMEN: Soft. EXTREMITIES: Bilateral below the knee amputations. LABORATORY DATA: White blood cell count 16, hematocrit 26.2, and platelet count 185. Sodium 131, potassium 4.2, chloride 100, CO2 of 25, BUN 22, creatinine 2.1, glucose 95. ASSESSMENT: 1. Acute on chronic respiratory failure, requiring noninvasive mechanical ventilation. 2. Bilateral effusions, volume overload, which appears to be better with fluid removal by diuresis. PLAN: Continue diuresis. Continue intermittent BiPAP as needed. If he can stay off the BiPAP today, he may be able to go to the floor by tomorrow. Job ID: [id number]
--- NOTE | 2018-06-23 11:36 | PRG ---
DATE OF SERVICE: 06/23/2018 SUBJECTIVE: Patient was seen and examined at bedside and overnight events noted. Patient denies any shortness of breath or chest pain or palpitation. No history of nausea or vomiting or diarrhea or fever or chills or cramps. OBJECTIVE: GENERAL: This is a well-built male, in no apparent distress. VITAL SIGNS: Temperature 98.4, pulse 77, respiratory rate 25, blood pressure 146/71. HEENT: Atraumatic, normocephalic. Oral mucosa is moist NECK: Supple. CARDIOVASCULAR: S1, S2 heard. Rate and rhythm regular. RESPIRATORY: Clear to auscultation. GASTROINTESTINAL: Abdomen is soft. MUSCULOSKELETAL: No tenderness. No edema. DERMATOLOGIC: No skin rash. NEUROLOGIC: Alert and awake and oriented X3. No focal neurologic deficits. Moving all the extremities. PSYCHIATRIC: Mood and affect normal. LABORATORY DATA: Potassium is 4.2, BUN is 22, creatinine is 2.1. ASSESSMENT AND PLAN: 1. Acute kidney injury, stable. 2. Chronic kidney disease. 3. Hypokalemia. 4. Hypertension. 5. Anemia. 6. Cardiorenal syndrome. 7. Renal function better. Job ID: [id number]
[2018-06-23] MEDS: HumaLOG 300 UNITS/3 ML VIAL SC PRN (17:49)
[2018-06-23] MEDS: Amitriptyline HCl 25 MG TAB PO SCH (20:46)
[2018-06-23] MEDS: Benzonatate 100 MG CAP PO PRN (20:46)
[2018-06-23] MEDS: Rosuvastatin 20 MG TAB PO SCH (20:46)
[2018-06-23] MEDS: Famotidine 20 MG TAB PO SCH (20:47)
[2018-06-24 04:36] LABS: #Eosinphils 1.2 thou/uL (0.0-0.7); #Lymphocytes 1.7 thou/uL (1.20-3.40); #Neutrophils 11.5 thou/uL (1.40-6.50); %Eosinophils 7.1 % (0.0-10.0); %Lymphocytes 10.3 % (21.0-51.0); %Neutrophils 70.7 % (42.0-75.0); Hemoglobin 8.7 g/dL (14.0-18.0); Mean Corpuscular HGB CONC 31.3 g/dL (32.0-36.0); Mean Corpuscular Hemoglobin 24.9 pg (27.0-31.0); Mean Corpuscular Volume 79.5 fL (78.0-98.0); Platelet Count 287 thou/uL (130-400); RBC Distribution Width 15.8 % (11.5-14.5); Red Blood Cell (RBC) Count 3.48 mill/uL (4.70-6.10); White Blood Cell (WBC) Count 16.3 thou/uL (4.8-10.8)
[2018-06-24 05:18] LABS: Anion Gap 13 mmol/L (10-20); BUN (Urea Nitrogen) 25 mg/dL (8.4-25.7); Calc. Creatinine Clearance 34 mL/min (70-130); Calcium 8.5 mg/dL (7.8-10.44); Carbon Dioxide 23 mmol/L (22-29); Chloride 101 mmol/L (98-107); Estimated GFR-MDRD 34; Glucose 160 mg/dL (70-105); Potassium 3.9 mmol/L (3.5-5.1); Sodium 133 mmol/L (136-145)
[2018-06-24] MEDS: HumaLOG 300 UNITS/3 ML VIAL SC PRN ×2 (06:02→17:14)
[2018-06-24] MEDS: Furosemide 40 MG TAB PO SCH (09:49)
[2018-06-24] MEDS: Senokot S 8.6-50 MG TAB PO SCH ×3 (09:49→20:44)
[2018-06-24] MEDS: Amiodarone 200 MG TAB PO SCH (09:49)
[2018-06-24] MEDS: Ferrous Sulfate 325 MG TAB PO SCH ×2 (09:49→17:14)
[2018-06-24] MEDS: Amlodipine 5 MG TAB PO SCH (09:49)
--- NOTE | 2018-06-24 10:06 | PRG ---
DATE OF SERVICE: 06/23/2018 ADDENDUM: Please add this as an addendum to the note of Dr. Brand. Mr. Calderon is awake and alert this morning. He is anxious to go home. He does not appear to be immune to hep A and hep B and would need immunization for this given that he does have hep C. His hep C evaluation, treatment will be undertaken as an outpatient. Clinically, he has improved and is likely ready for discharge today or tomorrow. We will also await input from the intensive care team. Job ID: [id number]
--- NOTE | 2018-06-24 10:09 | PRG ---
DATE OF SERVICE: 06/24/2018 SERVICE: Pulmonary Medicine. INTERVAL HISTORY: The patient is doing really quite well from respiratory standpoint. He denies any current chest pain, fevers, or chills. He got weaned down to room air. He denies any current cough or sputum production. He is tolerating p.o. just fine. PHYSICAL EXAMINATION: VITAL SIGNS: Afebrile, pulse 103, blood pressure 133/82, respirations 29, and saturation 100% on 3 L nasal cannula. GENERAL: The patient is awake and alert, in no apparent distress. LUNGS: Decent air entry. No crackles are present today. There is a slightly prolonged expiratory phase, but no wheezing. HEART: Normal rate. Regular. ABDOMEN: Soft, nontender, and nondistended. Bowel sounds are positive. MUSCULOSKELETAL: No cyanosis or clubbing. No pitting in the bilateral lower extremities. NEUROLOGIC: Grossly nonfocal. LABORATORY DATA: WBC 16.3, hemoglobin 8.7, and platelets 287,000. Creatinine 2.37. Basic metabolic profile is otherwise unremarkable. Blood cultures x2 and urine culture are negative. ASSESSMENT: 1. Acute hypoxic respiratory failure, now resolved. 2. Pleural effusions, bilateral associated with severe volume overload event. 3. Metabolic encephalopathy, resolved. 4. Acute on chronic systolic and diastolic heart failure. 5. Acute kidney injury on chronic kidney disease 3, resolved to baseline. 6. Abnormal CT with ground-glass opacifications, fullness of the interstitium, and effusions, all likely secondary to volume overload. 7. Obstructive sleep apnea, witnessed at bedside. DISCUSSION AND PLAN: At this point, the patient is stable for transition out of the ICU, or discharged home. Pulmonary/Critical Care will continue to follow along if he remains in the IMCU. When he arrives on the floor, he have no further requirements per my opinion, and I will sign off. Please call with additional questions or concerns through time. Job ID: [id number]
[2018-06-24] MEDS: Rivaroxaban 15 MG TAB PO SCH (10:10)
[2018-06-24] MEDS: Diltiazem HCl CD 300 mg Capsule PO SCH (10:10)
--- NOTE | 2018-06-24 12:10 | PDOC.FM ---
- Subjective Subjective: Patient doing well. No significant overnight events. Patient did not require BiPAP overnight. He is not requiring O2. Patient stable for transfer to floor. Patient wanting to go home. - Objective Vital Signs & Weight: Vital Signs (12 hours) Temp Pulse Pulse Ox 06/24/18 11:12 98.4 F 06/24/18 10:10 102 H 06/24/18 09:49 102 H 06/24/18 07:53 100 06/24/18 06:57 98.1 F 06/24/18 04:00 98.1 F Weight Admit Weight 74.389 kg Weight 71.758 kg Most Recent Monitor Data Heart Rate from ECG 104 NIBP 133/82 NIBP BP-Mean 99 Respiration from ECG 28 SpO2 92 I&O: 06/23/18 06/24/18 06/25/18 06:59 06:59 06:59 Intake Total 1760 1680 Output Total 1981 2650 300 Balance -221 -970 -300 Result Diagrams: 06/24/18 04:06 06/24/18 04:06 Dx/Plan (1) Pulmonary edema with congestive heart failure Code(s): I50.1 - LEFT VENTRICULAR FAILURE, UNSPECIFIED Status: Acute (2) Acute on chronic renal failure Code(s): N17.9 - ACUTE KIDNEY FAILURE, UNSPECIFIED; N18.9 - CHRONIC KIDNEY DISEASE, UNSPECIFIED Status: Acute (3) Hepatitis C antibody positive in blood Code(s): R76.8 - OTHER SPECIFIED ABNORMAL IMMUNOLOGICAL FINDINGS IN SERUM Status: Acute (4) Pleural effusion, bilateral Code(s): J90 - PLEURAL EFFUSION, NOT ELSEWHERE CLASSIFIED Status: Acute (5) Sepsis Code(s): A41.9 - SEPSIS, UNSPECIFIED ORGANISM Status: Suspected (6) Iron deficiency anemia due to chronic blood loss Code(s): D50.0 - IRON DEFICIENCY ANEMIA SECONDARY TO BLOOD LOSS (CHRONIC) Status: Acute (7) Atrial fibrillation Code(s): I48.91 - UNSPECIFIED ATRIAL FIBRILLATION Status: Chronic Qualifiers: (8) CAD (coronary artery disease) Code(s): I25.10 - ATHSCL HEART DISEASE OF [place] CORONARY ARTERY W/O ANG PCTRS Status: Chronic (9) CKD (chronic kidney disease) stage 3, GFR 30-59 ml/min Code(s): N18.3 - CHRONIC KIDNEY DISEASE, STAGE 3 (MODERATE) Status: Chronic (10) Chronic combined systolic (congestive) and diastolic (congestive) heart failure Code(s): I50.42 - CHRONIC COMBINED SYSTOLIC AND DIASTOLIC HRT FAIL Status: Chronic (11) DM2 (diabetes mellitus, type 2) Status: Chronic (12) HLD (hyperlipidemia) Code(s): E78.5 - HYPERLIPIDEMIA, UNSPECIFIED Status: Chronic Qualifiers: (13) HTN (hypertension) Code(s): I10 - ESSENTIAL (PRIMARY) HYPERTENSION Status: Chronic (14) S/P AKA (above knee amputation) bilateral Code(s): Z89.611 - ACQUIRED ABSENCE OF RIGHT LEG ABOVE KNEE; Z89.612 - ACQUIRED ABSENCE OF LEFT LEG ABOVE KNEE Status: Chronic (15) Tobacco abuse Code(s): Z72.0 - TOBACCO USE Status: Chronic - Plan Plan: Acute respiratory failure with hypoxia, resolved - No longer requiring overnight BiPAP or NC - 2/2 CHF exacerbation - Continue lasix - Transfer patient to telemetry with goal of d/c in next 1-2 days - pt refusing SNF or rehab, states he has caregiver; importance of compliance upon d/c discussed Acute on chronic renal failure - 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 Duran, who has been consulted - will continue to monitor closely; improving daily, appears to be at baseline - avoid nephrotoxic agents Elevated LFTs, resolved - Hep C positive Iron def Anemia - Has been downtrending over the last several months - could be related to hx adenocarcinoma of colon - iron studies showed iron deficiency anemia - stable at this time Hypokalemia - continue to monitor - replace K PRN Hyponatremia: improving - cont to monitor DM2 - on SSI, accuchecks ACHS - on glipizide - will need to be monitored outpatient Hx of A fib - hx of malignancy - continue home anticoagulation Hepatitis C - patient will need outpatient treatment and follow up Dispo: Transfer to telemetry. Plan for d/c within next 1-2 days. Addendum - Attending - Attending Attestation Date/Time: 06/24/18 9933 I personally evaluated the patient and discussed the management with Dr. Dueñas I agree with the History, Examination, Assessment and Plan documented above with any addition or exceptions noted below. 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
--- NOTE | 2018-06-24 12:49 | PRG ---
DATE OF SERVICE: 06/24/2018 SUBJECTIVE: This 62-year-old gentleman is being seen for acute kidney injury. The patient denied nausea, vomiting or chest pain. OBJECTIVE: GENERAL: The patient is awake and alert. VITAL SIGNS: Pulse 85, breathing 16, and blood pressure 104/60. GENERAL APPEARANCE AND MENTAL STATUS: Fair. HEAD/NECK: Normocephalic. Atraumatic. EYES: EOMI. No deformity. EARS: Clear. No ulcers. NOSE: Intact. No lesions. MOUTH: Clear. No discharge. THROAT: Clear. No exudate. LUNGS: Clear. No crackles. CARDIAC: S1, S2. No rub. ABDOMEN: Benign. Bowel sounds positive. GENITALIA/RECTUM: [place] absent. BACK/EXTREMITIES: Edema 0+. NEUROLOGICAL: Alert and motor intact. SKIN: LYMPHATICS: LAB: Reviewed. IMPRESSION AND PLAN: 1. Stage 3 chronic kidney disease, stable. 2. Hypertension stable. 3. Anemia, stable. 4. Acute kidney injury, stable. No indication for dialysis. Job ID: [id number]
[2018-06-24] MEDS: Famotidine 20 MG TAB PO SCH (20:41)
[2018-06-24] MEDS: Amitriptyline HCl 25 MG TAB PO SCH (20:41)
[2018-06-24] MEDS: Rosuvastatin 20 MG TAB PO SCH (20:42)
[2018-06-24] MEDS: Benzonatate 100 MG CAP PO PRN (21:20)
[2018-06-24] MEDS: Guaifenesin DM 100-10/5 ML UDCUP PO PRN (21:20)
--- NOTE | 2018-06-25 05:15 | PDOC.FM ---
- Subjective Subjective: Patient doing well this AM. No significant overnight events. He was placed on NC several times last night. Uncertain whether patient actually needed O2. Patient states he is feeling well. He denies any N/V, chest pain, or shortness of breath. Patient desires to go home. - Objective MAR Reviewed: Yes Vital Signs & Weight: Vital Signs (12 hours) Temp Pulse Ox 06/25/18 03:47 98.4 F 06/25/18 02:00 94 L 06/24/18 23:37 98.4 F 06/24/18 20:00 97 06/24/18 19:56 98.8 F Weight Admit Weight 74.389 kg Weight 71.758 kg Most Recent Monitor Data Heart Rate from ECG 99 NIBP 154/83 NIBP BP-Mean 106 Respiration from ECG 27 SpO2 100 I&O: 06/23/18 06/24/18 06/25/18 06:59 06:59 06:59 Intake Total 1760 1680 Output Total 1981 2650 300 Balance -221 -970 -300 Result Diagrams: 06/25/18 07:37 06/25/18 07:36 EKG Reviewed by me: Yes Radiology Reviewed by me: Yes Phys Exam - Physical Examination Constitutional: NAD HEENT: moist MMs Respiratory: clear to auscultation bilateral Cardiovascular: RRR, no significant murmur Gastrointestinal: soft, non-tender, no distention, positive bowel sounds Bilateral AKA Neurological: non-focal Psychiatric: normal affect, A&O x 3 Skin: no rash, cap refill <2 seconds Dx/Plan (1) Pulmonary edema with congestive heart failure Code(s): I50.1 - LEFT VENTRICULAR FAILURE, UNSPECIFIED Status: Acute (2) Acute on chronic renal failure Code(s): N17.9 - ACUTE KIDNEY FAILURE, UNSPECIFIED; N18.9 - CHRONIC KIDNEY DISEASE, UNSPECIFIED Status: Acute (3) Hepatitis C antibody positive in blood Code(s): R76.8 - OTHER SPECIFIED ABNORMAL IMMUNOLOGICAL FINDINGS IN SERUM Status: Acute (4) Pleural effusion, bilateral Code(s): J90 - PLEURAL EFFUSION, NOT ELSEWHERE CLASSIFIED Status: Acute (5) Sepsis Code(s): A41.9 - SEPSIS, UNSPECIFIED ORGANISM Status: Suspected (6) Iron deficiency anemia due to chronic blood loss Code(s): D50.0 - IRON DEFICIENCY ANEMIA SECONDARY TO BLOOD LOSS (CHRONIC) Status: Acute (7) Atrial fibrillation Code(s): I48.91 - UNSPECIFIED ATRIAL FIBRILLATION Status: Chronic Qualifiers: (8) CAD (coronary artery disease) Code(s): I25.10 - ATHSCL HEART DISEASE OF [place] CORONARY ARTERY W/O ANG PCTRS Status: Chronic (9) CKD (chronic kidney disease) stage 3, GFR 30-59 ml/min Code(s): N18.3 - CHRONIC KIDNEY DISEASE, STAGE 3 (MODERATE) Status: Chronic (10) Chronic combined systolic (congestive) and diastolic (congestive) heart failure Code(s): I50.42 - CHRONIC COMBINED SYSTOLIC AND DIASTOLIC HRT FAIL Status: Chronic (11) DM2 (diabetes mellitus, type 2) Status: Chronic (12) HLD (hyperlipidemia) Code(s): E78.5 - HYPERLIPIDEMIA, UNSPECIFIED Status: Chronic Qualifiers: (13) HTN (hypertension) Code(s): I10 - ESSENTIAL (PRIMARY) HYPERTENSION Status: Chronic (14) S/P AKA (above knee amputation) bilateral Code(s): Z89.611 - ACQUIRED ABSENCE OF RIGHT LEG ABOVE KNEE; Z89.612 - ACQUIRED ABSENCE OF LEFT LEG ABOVE KNEE Status: Chronic (15) Tobacco abuse Code(s): Z72.0 - TOBACCO USE Status: Chronic - Plan Plan: Acute respiratory failure with hypoxia 2/2 CHF exacerbation, resolved - Used NC overnight and had NC on this AM, but satting 100%. Recommend goal >88% . Patient with extensive tobacco use history. NC d/c'd this AM. Will monitor throughout the morning - 2/2 CHF exacerbation - Continue lasix - pt refusing SNF or rehab, states he has caregiver; importance of compliance upon d/c discussed - Lung exam improved today Acute on chronic renal failure - 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 Duran, who has been consulted - will continue to monitor closely; improving daily, appears to be at baseline - avoid nephrotoxic agents Elevated LFTs, resolved - Hep C positive Iron def Anemia - Has been downtrending over the last several months - could be related to hx adenocarcinoma of colon - iron studies showed iron deficiency anemia - stable at this time Hypokalemia - continue to monitor - replace K PRN Hyponatremia: improving - cont to monitor DM2 - on SSI, accuchecks ACHS - on glipizide, increased dose yesterday - will need to be monitored outpatient - HgA1c on admission was 6.9%, BG not well controlled during this hospitalization - No metformin d/t kidney function Hx of A fib - hx of malignancy - continue home anticoagulation Hepatitis C - patient will need outpatient treatment and follow up Dispo: Plan for d/c home today or tomorrow. Addendum - Attending - Attending Attestation Date/Time: 06/25/18 6527 I personally evaluated the patient and discussed the management with Dr. Hernandez I agree with the History, Examination, Assessment and Plan documented above with any addition or exceptions noted below. Patient sating well room air 97% Patient with maximum hospital benefit He declines consideration of rehab will d/c home with aid and counseled need outpatient follow up for further consideration trend anemia, hepatitis C treatment consideration and sleep study.
[2018-06-25] MEDS ORDERED: glipiZIDE 5 MG TAB PO SCH (07:30)
[2018-06-25 07:51] VITALS: TEMP 97.8
[2018-06-25 08:08] LABS: Anion Gap 15 mmol/L (10-20); BUN (Urea Nitrogen) 20 mg/dL (8.4-25.7); Calc. Creatinine Clearance 40 mL/min (70-130); Calcium 8.6 mg/dL (7.8-10.44); Carbon Dioxide 17 mmol/L (22-29); Chloride 102 mmol/L (98-107); Estimated GFR-MDRD 44; Glucose 225 mg/dL (70-105); Potassium 4.1 mmol/L (3.5-5.1); Sodium 130 mmol/L (136-145)
[2018-06-25 08:34] LABS: #Basophils 0.1 thou/uL (0.0-0.2); #Eosinphils 0.8 thou/uL (0.0-0.7); #Lymphocytes 1.7 thou/uL (1.20-3.40); #Monocytes 1.8 thou/uL (0.11-0.59); %Basophils 0.3 % (0.0-1.0); %Lymphocytes 10.2 % (21.0-51.0); %Neutrophils 73.5 % (42.0-75.0); Burr Cells MODERATE= 6-15 cells (100X) (0-1/hpf); Elliptocytes SLIGHT = 2-5 cells (100X) (0-1/hpf); Hemoglobin 9.6 g/dL (14.0-18.0); Hypochromia SLIGHT = 6-15 cells (100X) (0-5/hpf); MDiff Complete? YES; Mean Corpuscular HGB CONC 29.9 g/dL (32.0-36.0); Mean Corpuscular Hemoglobin 24.1 pg (27.0-31.0); Mean Corpuscular Volume 80.6 fL (78.0-98.0); Mean Platelet Volume 8.5 fL (7.4-10.4); Platelet Count 339 thou/uL (130-400); Platelet Morphology Comment Appears Adequate; Polychromasia SLIGHT = 2-3 cells (100X) (0-2/hpf); RBC Distribution Width 16.1 % (11.5-14.5); Red Blood Cell (RBC) Count 3.98 mill/uL (4.70-6.10); White Blood Cell (WBC) Count 16.4 thou/uL (4.8-10.8)
[2018-06-25] MEDS: Furosemide 40 MG TAB PO SCH (09:17)
[2018-06-25] MEDS: Ferrous Sulfate 325 MG TAB PO SCH (09:17)
[2018-06-25] MEDS: Amiodarone 200 MG TAB PO SCH (09:18)
[2018-06-25] MEDS: Amlodipine 5 MG TAB PO SCH (09:18)
[2018-06-25] MEDS: Rivaroxaban 15 MG TAB PO SCH (09:20)
[2018-06-25] MEDS: Diltiazem HCl CD 300 mg Capsule PO SCH (09:20)
[2018-06-25] MEDS: Senokot S 8.6-50 MG TAB PO SCH (09:21)
[2018-06-25] MEDS: HumaLOG 300 UNITS/3 ML VIAL SC PRN (09:22)
[2018-06-25 09:28] VITALS: BP 141/92
--- NOTE | 2018-06-25 12:54 | PRG ---
DATE OF SERVICE: 06/25/2018 SUBJECTIVE: This 62-year-old gentleman is being seen for acute kidney injury. The patient denied nausea, vomiting or chest pain. OBJECTIVE: GENERAL: The patient is awake and alert. VITAL SIGNS: Pulse 102, breathing 16, and blood pressure 141/92. GENERAL APPEARANCE AND MENTAL STATUS: Fair. HEAD/NECK: Normocephalic. Atraumatic. EYES: EOMI. No deformity. EARS: Clear. No ulcers. NOSE: Intact. No lesions. MOUTH: Clear. No discharge. THROAT: Clear. No exudate. LUNGS: Clear. No crackles. CARDIAC: S1, S2. No rub. ABDOMEN: Benign. Bowel sounds positive. GENITALIA/RECTUM: [place] absent. BACK/EXTREMITIES: Edema 0+. NEUROLOGICAL: Alert and motor intact. SKIN: LYMPHATICS: LABS: Reviewed. IMPRESSION AND PLAN: 1. Stage 3 chronic kidney disease, stable. 2. Hypertension stable. 3. Anemia, stable. 4. Medication based on GFR appropriate. 5. The patient will follow up to see me in 2 weeks. Job ID: [id number]
--- NOTE | 2018-06-25 16:13 | PRG ---
DATE OF SERVICE: 06/25/2018 SERVICE: Pulmonary Medicine. INTERVAL HISTORY: The patient's breathing is comfortable. Denies any current chest pain, fevers, or chills. There has been no interval change to his condition overnight. He is looking forward to going home today. PHYSICAL EXAMINATION: VITAL SIGNS: Afebrile, pulse 102, blood pressure 141/92, respirations 18, saturation 95% on room air. GENERAL: The patient is awake and alert, in no apparent distress. LUNGS: Decent air entry. No prolonged expiratory phase or wheezing is appreciated. HEART: Normal rate regular. ABDOMEN: Soft, nontender, nondistended. Bowel sounds are positive. MUSCULOSKELETAL: No cyanosis or clubbing. There is no pitting in the bilateral lower extremities. NEUROLOGIC: Grossly nonfocal. LABORATORY DATA: WBC 16.4, hemoglobin 9.6, platelets 8.5. Sodium 130 and downtrending, creatinine 1.90, continuing to improve. Basic metabolic profile is otherwise unremarkable. All immunology studies are unremarkable today. Blood cultures x2 and urine culture unremarkable. ASSESSMENT: 1. Acute hypoxic respiratory failure, resolved. 2. Pleural effusions, bilateral, associated with severe volume overload event. 3. Metabolic encephalopathy, resolved. 4. Acute on chronic systolic and diastolic heart failure. 5. Acute kidney injury on chronic kidney disease 3, resolved. 6. Obstructive sleep apnea, witnessed at bedside. DISCUSSION AND PLAN: The patient is doing fine from respiratory standpoint. At this point, he is stable for transition out of the hospital. He will need a repeat chest x-ray in a couple of weeks to verify the effusions have improved. Additionally, he would benefit from an outpatient polysomnogram. At this point, he is stable for transition out of the hospital or out of the [facility]. If he remains in this location, I will continue to follow, however. Job ID: [id number]
--- NOTE | 2018-06-26 10:39 | DIS ---
DATE OF ADMISSION: 06/17/2018 DATE OF DISCHARGE: 06/25/2018 ADMITTING PHYSICIAN: This patient was initially admitted to the [facility] under Dr. Logan Garzon. Care was then transferred to the [facility] under the care of Dr. Erika Peters. RESIDENT: Alexa Brand DO PROCEDURES: 1. Chest x-ray showed cardiomegaly with right-sided pleural and parenchymal changes, however, stable compared to prior study. There is also left-sided lung changes, which showed definite improvement with some retrocardiac parenchymal change. 2. Abdominal ultrasound showed no evidence of gallstone or biliary obstruction. There was ascites, a small amount within the right upper quadrant. 3. Abdomen and pelvis CT showed continued stool retention in the colon without obstruction, mild ascites, bilateral pleural effusion with adjacent atelectasis. 4. Chest CT showed moderate-sized bilateral pleural effusions that had increased in size since the prior CT. There are also dense bibasilar atelectasis. There are numerous scattered somewhat nodular areas of parenchymal opacity seen throughout the visualized lung fajardo bilaterally, which is concerning for atypical infectious pneumonia. There is also evidence of superimposed edema with vascular congestion. CONSULTATIONS: 1. Nephrology, Dr. Dave Duran. 2. Pulmonology, Dr. Tay Yeung. PRIMARY DIAGNOSES: 1. Acute hypoxic respiratory failure secondary to acute heart failure with reduced ejection fraction and exacerbation. 2. Possible community-acquired pneumonia. 3. Chronic kidney disease, stage 3. 4. Hepatitis C with transaminitis. 5. Uncontrolled diabetes mellitus. 6. History of coronary artery disease, status post coronary artery bypass grafting x4. 7. Obstructive sleep apnea, witnessed at bedside. 8. Metabolic encephalopathy, resolved. 9. Pleural effusion, bilateral, associated with severe volume overload events. DISCHARGE MEDICATIONS: 1. Acetaminophen 650 mg p.o. q.4 hours. 2. Amiodarone 200 mg p.o. daily. 3. Amlodipine 5 mg p.o. daily. 4. Diltiazem 300 mg p.o. daily. 5. Gabapentin 100 mg p.o. b.i.d. 6. Rosuvastatin 20 mg p.o. at bedtime. 7. Amitriptyline 25 mg p.o. at bedtime. 8. Ferrous sulfate 325 mg p.o. b.i.d. 9. Furosemide 40 mg p.o. daily. 10. Glipizide 5 mg p.o. daily. 11. Nitroglycerin 0.4 mg sublingual q.5 minutes as needed. 12. Xarelto 15 mg p.o. daily. HOSPITAL COURSE: This is a 62-year-old gentleman, who presented to the hospital with increased dyspnea and cough. The patient reports that it progressively worsened over the last few days. He has denied any fever, chills, chest pain, nausea, or vomiting. The patient did state he was admitted a month ago and had a colon resection for adenocarcinoma with no known metastasis. The patient follows with Dr. Duran for diabetic nephropathy. He also has a history of AFib, on rate control medication and anticoagulation. On imaging, the patient was noted to be volume overloaded. . Job ID: [id number]
== END 2018-06-25 10:37 | disposition home or self-care (01) | DRG 871 ==
LOC: ERS 12:52 → 2NO 18:10 → EEVIPCON 18:10 → CCU 06-18 14:01 → IMCU/EMU 06-19 15:40
PROVIDERS: ADMIT Internal Medicine; ATTEND Internal Medicine
PROC: 5A09457 Assistance with Respiratory Ventilation, 24-96 Consecutive Hours, Continuous Positive Airway Pressure (ICD-10-PCS; principal; 2018-06-17)
DX: A41.9 Sepsis, unspecified organism (principal); J18.9 Pneumonia, unspecified organism; J96.01 Acute respiratory failure with hypoxia; G93.41 Metabolic encephalopathy; I50.43 Acute on chronic combined systolic (congestive) and diastolic (congestive) heart failure; E87.1 Hypo-osmolality and hyponatremia; N17.9 Acute kidney failure, unspecified; I13.0 Hypertensive heart and chronic kidney disease with heart failure and stage 1 through stage 4 chronic kidney disease, or unspecified chronic kidney disease; I25.10 Atherosclerotic heart disease of native coronary artery without angina pectoris; E78.5 Hyperlipidemia, unspecified; E11.51 Type 2 diabetes mellitus with diabetic peripheral angiopathy without gangrene; E11.22 Type 2 diabetes mellitus with diabetic chronic kidney disease; N18.3 Chronic kidney disease, stage 3 (moderate); I48.2 Chronic atrial fibrillation; D63.1 Anemia in chronic kidney disease; D50.9 Iron deficiency anemia, unspecified; E11.65 Type 2 diabetes mellitus with hyperglycemia; G47.33 Obstructive sleep apnea (adult) (pediatric); E87.6 Hypokalemia; B19.20 Unspecified viral hepatitis C without hepatic coma; R00.1 Bradycardia, unspecified; Z91.19 Patient's noncompliance with other medical treatment and regimen; Z85.038 Personal history of other malignant neoplasm of large intestine; Z89.612 Acquired absence of left leg above knee; Z89.611 Acquired absence of right leg above knee; Z95.1 Presence of aortocoronary bypass graft; Z90.49 Acquired absence of other specified parts of digestive tract; Z87.891 Personal history of nicotine dependence; Z79.01 Long term (current) use of anticoagulants; Z79.52 Long term (current) use of systemic steroids; Z79.51 Long term (current) use of inhaled steroids; Z79.84 Long term (current) use of oral hypoglycemic drugs; Z79.899 Other long term (current) drug therapy
CPT/HCPCS: 36415; 36416; 71045; 71250; 74176; 76705; 80048; 80053; 80074; 80076; 81003; 81015; 82105; 82140; 82553; 82728; 82805; 83036; 83520; 83540; 83550; 83605; 83735; 83880; 84145; 84484; 85025; 85652; 86038; 86140; 86225; 86256; 86480; 86704; 86708; 86780; 87040; 87086; 87389; 87522; 93005; 94660; 96365; 96367; J1940; J1956; J2185; J2543; J2920; J3370; J3490; J7050

== ENCOUNTER 2018-11-19 20:09 | Inpatient (IN) | payer OTHER ==
[2018-11-19 20:41] LABS: #Basophils 0.1 thou/uL (0.0-0.2); #Eosinphils 0.5 thou/uL (0.0-0.7); #Monocytes 1.1 thou/uL (0.11-0.59); #Neutrophils 7.6 thou/uL (1.40-6.50); %Basophils 0.5 % (0.0-1.0); %Eosinophils 4.7 % (0.0-10.0); %Lymphocytes 17.5 % (21.0-51.0); %Monocytes 9.5 % (0.0-10.0); %Neutrophils 67.8 % (42.0-75.0); Hemoglobin 15.2 g/dL (14.0-18.0); Mean Corpuscular HGB CONC 31.5 g/dL (32.0-36.0); Mean Corpuscular Hemoglobin 28.8 pg (27.0-31.0); Mean Corpuscular Volume 91.4 fL (78.0-98.0); Mean Platelet Volume 10.3 fL (7.4-10.4); Platelet Count 147 thou/uL (130-400); RBC Distribution Width 15.6 % (11.5-14.5); Red Blood Cell (RBC) Count 5.27 mill/uL (4.70-6.10); White Blood Cell (WBC) Count 11.2 thou/uL (4.8-10.8)
[2018-11-19] MEDS ORDERED: Nitroglycerin 2% Ointment 1 INCH/1 GM Packet ONE (20:59)
[2018-11-19 21:03] LABS: ALT (SGPT) 19 U/L (8-55); AST (SGOT) 24 U/L (5-34); Albumin 3.2 g/dL (3.4-4.8); Alkaline Phosphatase 158 U/L (40-150); Anion Gap 12 mmol/L (10-20); BUN (Urea Nitrogen) 26 mg/dL (8.4-25.7); Bilirubin, Total 0.5 mg/dL (0.2-1.2); Calc. Creatinine Clearance 0 mL/min (70-130); Calcium 8.5 mg/dL (7.8-10.44); Carbon Dioxide 20 mmol/L (23-31); Chloride 108 mmol/L (98-107); Estimated GFR-MDRD 39; Globulin 3.6 g/dL (2.4-3.5); Glucose 177 mg/dL (80-115); Potassium 4.1 mmol/L (3.5-5.1); Protein, Total 6.8 g/dL (5.8-8.1); Sodium 136 mmol/L (136-145)
[2018-11-19] MEDS ORDERED: Aspirin Chewable 81 MG TAB ONE (21:05)
[2018-11-19 21:07] LABS: Actual Bicarbonate (HCO3a) 18.8 mEq/L (22-28); Analyzer IN Cardio ER; Base Excess (BEa) -4.5 mEq/L (-2.0 to +3.0); CO2 Tension 30.6 mmHg (35.0-45.0); Calcium, Ionized 1.18 mmol/L (1.12-1.30); Carboxyhemoglobin (COHb) 2.6 gm% (0.0-3.0); O2 Tension (PaO2) 67.5 mmHg (> 80.0); Potassium - ABG Lab 4.11 mmol/L (3.70-5.30); pH, Arterial 7.41 (7.35-7.45)
[2018-11-19 21:10] LABS: Puncture Site LRA
[2018-11-19 21:31] LABS: CKMB 2.7 ng/mL (0-6.6)
[2018-11-19] MEDS ORDERED: methylPREDNISolone Sod Succ/PF 125 MG/2 ML VIAL ONE (21:34)
[2018-11-19] MEDS ORDERED: Morphine 4 MG/ML VIAL ONE (21:34)
[2018-11-19] MEDS ORDERED: Albuterol Sulfate 2.5 mg/3 ml Neb ONE ×2 (21:49)
--- NOTE | 2018-11-19 22:19 | PDOC.FPRHP ---
- History of Present Illness Chief Complaint: chest pain, SOB History of Present Illness: 63 yo gentleman complaining of a cough, wheezing, chest pain and trouble breathing. Denies fever, endorses nausea. Denies diarrhea. Started feeling bad with a Cough for 2-3 days, no sputum production. Chest pain started 2-3 days ago as well, described as someone stepping on his chest, denied radiation, denied diaphoresis, endorses some nausea, severity 10/10. Did not try any aspirin or nitro. Denies improvement w/ nitro in the ED. Pt minimally responsive to questions and seemed lethargic. Most of history obtained from ex- in the room. ED Course: Given nitro, duonebs, morphine, aspirin, 125 mg methylprednisone. Given Lasix 40 IV. - Allergies/Adverse Reactions Allergies Allergy/AdvReac Type Severity Reaction Status Date / Time No Known Allergies Allergy Verified 06/17/18 20:03 - Home Medications Medication Instructions Recorded Confirmed Type Rivaroxaban [Xarelto] 15 mg PO DAILY #30 tab 03/23/18 11/20/18 Rx Diltiazem HCl [Cardizem CD] 300 mg PO DAILY 05/17/18 11/20/18 History Ferrous Sulfate [Feosol] 325 mg PO BID-WM #30 tab 06/25/18 11/20/18 Rx Carvedilol 6.25 mg PO BID-WM 11/20/18 11/20/18 History Pregabalin [Lyrica] 200 mg PO BID 11/20/18 11/20/18 History glipiZIDE [glipiZIDE ER] 2.5 mg PO DAILY-AC 11/20/18 11/20/18 History - History PMHx: CAD s/p CABG 2009, DM type 2, COPD, HTN, HLD, Afib on anticoagulation PSHx: CABG, AKA b/l, hemicolectomy for adenocarcinoma FHx: No family hx of heart disease Social: current smoker, smoked for decades, drinks occasionally (beer), marijuana use, lives by himself, 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 denies: palpitation, edema Gastrointestinal: reports: nausea. denies: vomiting, diarrhea Genitourinary: denies: incontinence Skin: denies: rashes - Vital signs BP: 134/84 HR: 78, irregular RR: 24 Afebrile, Pox: 98% on 2 liters NC - Physical Exam -Constitutional: opens eyes to voice, commands, lethargic and not wanting to talk much. Responds more to ex- HEENT: normocephalic and atraumatic, no scleral icterus -HEENT: Pinpoint pupils, minimally reactive to light, large wart on right forehead Neck: trachea midline Heart: normal S1/S2 (difficult to auscultate due to loud breath sounds) Lungs: no retractions -Lungs: Rales diffusely, upper airway sounds, does not sound wet Abdomen: soft, non-tender, bowel sounds present, no masses/distention -Musculoskeletal: bilateraly AKAs, no erythema Neurological: no focal deficit Skin: no rash/lesions Heme/Lymphatic: no unusual bruising or bleeding, no purpura, no petechia, no LAD FMR H&P: Results - Labs Result Diagrams: 11/21/18 05:11 11/21/18 05:11 Lab results: WBC 11.2 thou/uL (4.8-10.8) H 11/19/18 20:32 Hgb 15.2 g/dL (14.0-18.0) 11/19/18 20:32 Hct 48.2 % (42.0-52.0) 11/19/18 20:32 MCV 91.4 fL (78.0-98.0) 11/19/18 20:32 Plt Count 147 thou/uL (130-400) 11/19/18 20:32 Neutrophils % 67.8 % (42.0-75.0) 11/19/18 20:32 ABG pH 7.41 (7.35-7.45) 11/19/18 21:00 ABG pCO2 30.6 mmHg (35.0-45.0) L 11/19/18 21:00 ABG pO2 67.5 mmHg (> 80.0) 11/19/18 21:00 Sodium 136 mmol/L (136-145) 11/19/18 20:32 Potassium 4.1 mmol/L (3.5-5.1) 11/19/18 20:32 Chloride 108 mmol/L (98-107) H 11/19/18 20:32 Carbon Dioxide 20 mmol/L (23-31) L 11/19/18 20:32 BUN 26 mg/dL (8.4-25.7) H 11/19/18 20:32 Creatinine 2.10 mg/dL (0.7-1.3) H 11/19/18 20:32 Glucose 177 mg/dL (80-115) H 11/19/18 20:32 Calcium 8.5 mg/dL (7.8-10.44) 11/19/18 20:32 Total Bilirubin 0.5 mg/dL (0.2-1.2) 11/19/18 20:32 AST 24 U/L (5-34) 11/19/18 20:32 ALT 19 U/L (8-55) 11/19/18 20:32 Alkaline Phosphatase 158 U/L (40-150) H 11/19/18 20:32 CK-MB (CK-2) 2.7 ng/mL (0-6.6) 11/19/18 20:32 B-Natriuretic Peptide 593.7 pg/mL (0-100) H 11/19/18 20:32 Serum Total Protein 6.8 g/dL (5.8-8.1) 11/19/18 20:32 Albumin 3.2 g/dL (3.4-4.8) L 11/19/18 20:32 Additional comment: Troponin: 0.058 - EKG Interpretation EKG: sinus arrythmia w/ 1st degree block, nonspecific ST changes, similar to prior EKG - Radiology Interpretation Chest x-ray Status: pending FMR H&P: A/P - Problem List (1) Atrial fibrillation Current Visit: No Status: Chronic Code(s): I48.91 - UNSPECIFIED ATRIAL FIBRILLATION Qualifiers: Comment: Xarelto on hold (2) CAD (coronary artery disease) Current Visit: No Status: Chronic Code(s): I25.10 - ATHSCL HEART DISEASE OF [place] CORONARY ARTERY W/O ANG PCTRS Comment: stent since bipass, stress test without evidence acute ischemia (3) CKD (chronic kidney disease) stage 3, GFR 30-59 ml/min Current Visit: No Status: Chronic Code(s): N18.3 - CHRONIC KIDNEY DISEASE, STAGE 3 (MODERATE) Comment: stable (4) Cannabis abuse Current Visit: No Status: Chronic Code(s): F12.10 - CANNABIS ABUSE, UNCOMPLICATED (5) DM2 (diabetes mellitus, type 2) Current Visit: No Status: Chronic Comment: (6) Elevated troponin Current Visit: Yes Status: Acute Code(s): R74.8 - ABNORMAL LEVELS OF OTHER SERUM ENZYMES (7) HLD (hyperlipidemia) Current Visit: No Status: Chronic Code(s): E78.5 - HYPERLIPIDEMIA, UNSPECIFIED Qualifiers: (8) HTN (hypertension) Current Visit: No Status: Chronic Code(s): I10 - ESSENTIAL (PRIMARY) HYPERTENSION (9) S/P AKA (above knee amputation) bilateral Current Visit: No Status: Chronic Code(s): Z89.611 - ACQUIRED ABSENCE OF RIGHT LEG ABOVE KNEE; Z89.612 - ACQUIRED ABSENCE OF LEFT LEG ABOVE KNEE (10) Tobacco abuse Current Visit: No Status: Chronic Code(s): Z72.0 - TOBACCO USE (11) Chest pain Current Visit: Yes Status: Acute Code(s): R07.9 - CHEST PAIN, UNSPECIFIED - Plan 63-yo male w/ PMHx of CABG in 2009, adenocarcinoma of the colon and hx of hemicolectomy: Typical chest pain: - Pt's pain typical in nature described as pressure w/ nausea. Pt reports no help w/ nitro. - Trop 0.058. Will trend. - EKG today similar to previous EKGs. Will repeat if chest pain recurs or worsens. Most recent stress in May 2018 showed no acute findings. Will wait to order stress test pending troponins. - HEART = 6 - Transthoracic Echo in AM - CXR pending CHF exacerbation, mild: - Last ECHO in May 2018 showed EF of 40% - Lasix given in ER tonight. One dose Lasix 40mg IV in the AM - BNP 590 - Strict I/O - Daily weights COPD exacerbation, mild: - pt requiring 2L O2 oxygen and is not normally on oxygen at baseline - could have been brought on by prior URI since pt's cough changed - DuoNebs prn q4h - Albuterol neb prn q2h - prednisone in AM - azithromycin (500mg day 1, 250mg day 2-5) A-fib, chronic: - pt on xarelto, diltiazem and amiodarone at home. Continue anticoagulation - on telemetry, will monitor - pt does not have a pacemaker Marijuana use: - per ex-, pt uses marijuana but is not sure if he uses any other recreational drugs. - UDS to evaluate for other substance use Chronic problems: Type 2 diabetes w/ chronic kidney disease: - Baseline Cr 1.4-1.75 per records - Uncontrolled in past resulting in bilateral AKAs - continue home meds in AM Tobacco abuse, chronic smoker HTN HLD - continue home meds Dispo: telemetry, inpatient Code: FULL VTE PPx: already on xarelto GI PPx: none Diet: heart healthy, carb consistent Disposition/LOS: Admit to telemetry floor as inpatient. Citlali Barajas MD PGY1 FMR H&P: Upper Level - Pertinent history 63 yo male with pmhx CAD s/p CABG, DM, type 2, HTN, afib on anticoagulation, HLD presents with a cough, chest pain, and difficulty breathing for 2 days. - Pertinent findings Vital: HR 81 BP: 134/84 O2sat: 93% on 3L RR 23 PE: GCS14 NAD distant heart sounds upper airway coarse sounds, rales at bases abdomen soft, nondistended, nontender, hypoactive bowel sounds labs: trop: .058 BNP: 593 BUN/CR 26/2.10 CXR: pending EKG: first degree av block sinus arrhythmia st changes v1-v3 but unchanged from prior - Plan Date/Time: 11/19/18 2218 A/P: Typical chest pain -indeterminate trop, unchanged EKG, will admit to inpatient tele and trend overnight; if trops rise will repeat EKG to evaluate for ischemic changes and start theraputic lovenox in needed; will order tsh, mg, phosph, hba1c to further risk stratify, heart score 5-6 -suspect demand ischemia currently -consider cards consult if trops continue to rise, d/t hx of CAD s/p CABG -stress test ~6 mo ago, therefore we did not order another one CHF, exacerbation -borderline EF of 41% 6 months ago -will recheck echo tomorrow -strict I/Os, monitor UOP -Lasix 40mg IV now and 40mg IV in am -reassess volume status after that to decide on if more diuresis is indicated COPD exacerbation -cough, increased shortness of breath -started prednisone, steroids -duonebs, albuterol prn Afib on chronic anticoagulation -restart home meds HTN -home meds HLD -home meds DM, type 2 -home meds CKD -will monitor DVT: pt on xarelto CODE: full Shankar Osman MD, PGY-3 Addendum - Attending - Attending Attestation Date/Time: 11/21/18 1226 I personally evaluated the patient and discussed the management with the team. I agree with the History, Examination, Assessment and Plan documented above with any addition or exceptions noted below. Patient asymptomatic this AM and says he feels better than on admission. His lungs are relatively clear with rales at the bases. Otherwise no sig abd edema or obvious jvd. Diurese and follow up on cardiology consultation.
[2018-11-19] MEDS ORDERED: Furosemide 40 MG/4 ML VIAL ONE (23:04)
[2018-11-19] MEDS ORDERED: Ondansetron ODT 4 MG TAB PO PRN (23:10)
[2018-11-19] MEDS ORDERED: Albuterol Sulfate 2.5 mg/3 ml Neb NEB PRN (23:10)
[2018-11-19] MEDS ORDERED: Nitroglycerin 0.4 MG TAB (25 Tab Bottle) PO PRN (23:10)
[2018-11-19] MEDS ORDERED: Ondansetron PF 4 MG/2 ML Vial IVP PRN (23:10)
[2018-11-19] MEDS ORDERED: Acetaminophen 325 MG TAB PO PRN (23:10)
[2018-11-19 23:47] LABS: Cardiac Risk 3.9 (Less than 4.5)
[2018-11-20 00:13] VITALS: BMI 43.2
[2018-11-20] MEDS ORDERED: Azithromycin 250 MG TAB PO SCH (01:00)
[2018-11-20 02:44] LABS: #Eosinphils 0.1 thou/uL (0.0-0.7); #Lymphocytes 0.6 thou/uL (1.20-3.40); #Monocytes 0.1 thou/uL (0.11-0.59); #Neutrophils 9.5 thou/uL (1.40-6.50); %Basophils 0.3 % (0.0-1.0); %Eosinophils 0.5 % (0.0-10.0); %Lymphocytes 5.7 % (21.0-51.0); %Monocytes 0.9 % (0.0-10.0); %Neutrophils 92.6 % (42.0-75.0); Hemoglobin 15.1 g/dL (14.0-18.0); Mean Corpuscular HGB CONC 32.5 g/dL (32.0-36.0); Mean Corpuscular Hemoglobin 29.3 pg (27.0-31.0); Mean Corpuscular Volume 90.1 fL (78.0-98.0); Mean Platelet Volume 10.1 fL (7.4-10.4); Platelet Count 133 thou/uL (130-400); RBC Distribution Width 15.4 % (11.5-14.5); Red Blood Cell (RBC) Count 5.15 mill/uL (4.70-6.10); White Blood Cell (WBC) Count 10.2 thou/uL (4.8-10.8)
[2018-11-20 03:11] LABS: ALT (SGPT) 20 U/L (8-55); AST (SGOT) 24 U/L (5-34); Albumin 3.2 g/dL (3.4-4.8); Alkaline Phosphatase 157 U/L (40-150); Anion Gap 13 mmol/L (10-20); BUN (Urea Nitrogen) 25 mg/dL (8.4-25.7); Bilirubin, Total 0.5 mg/dL (0.2-1.2); Calc. Creatinine Clearance 34 mL/min (70-130); Calcium 8.6 mg/dL (7.8-10.44); Carbon Dioxide 18 mmol/L (23-31); Chloride 109 mmol/L (98-107); Estimated GFR-MDRD 40; Globulin 3.6 g/dL (2.4-3.5); Glucose 139 mg/dL (80-115); Potassium 4.6 mmol/L (3.5-5.1); Protein, Total 6.8 g/dL (5.8-8.1); Sodium 135 mmol/L (136-145)
[2018-11-20 03:26] LABS: CKMB 2.6 ng/mL (0-6.6)
--- NOTE | 2018-11-20 04:47 | PDOC.FM ---
- Subjective Subjective: He says a headache this morning on his left temporal side 08/12. He did not eat last night. CP was a couple of days in duration. BM was night before last. He is coughing up green sputum. - Objective MAR Reviewed: Yes Vital Signs & Weight: Vital Signs (12 hours) Temp Pulse Resp BP Pulse Ox 11/20/18 04:00 97 F L 82 22 H 135/73 98 11/19/18 23:45 98.4 F 85 20 140/79 92 L Weight Weight 64.183 kg Result Diagrams: 11/20/18 02:38 11/20/18 02:38 Phys Exam - Physical Examination Tired on exam HEENT: PERRLA, moist MMs, oral pharynx no lesions Neck: supple, full ROM Respiratory: clear to auscultation bilateral Cardiovascular: RRR, no significant murmur Gastrointestinal: soft, non-tender, positive bowel sounds Musculoskeletal: pulses present Neurological: normal sensation Psychiatric: normal affect Skin: no rash Dx/Plan (1) Chest pain Code(s): R07.9 - CHEST PAIN, UNSPECIFIED Status: Acute (2) CHF (congestive heart failure) Code(s): I50.9 - HEART FAILURE, UNSPECIFIED Status: Acute (3) Elevated troponin Code(s): R74.8 - ABNORMAL LEVELS OF OTHER SERUM ENZYMES Status: Acute (4) Acute on chronic renal failure Code(s): N17.9 - ACUTE KIDNEY FAILURE, UNSPECIFIED; N18.9 - CHRONIC KIDNEY DISEASE, UNSPECIFIED Status: Acute (5) Cannabis abuse Code(s): F12.10 - CANNABIS ABUSE, UNCOMPLICATED Status: Chronic (6) HLD (hyperlipidemia) Code(s): E78.5 - HYPERLIPIDEMIA, UNSPECIFIED Status: Chronic Qualifiers: (7) HTN (hypertension) Code(s): I10 - ESSENTIAL (PRIMARY) HYPERTENSION Status: Chronic (8) Tobacco abuse Code(s): Z72.0 - TOBACCO USE Status: Chronic - Plan Plan: 63-yo male w/ PMHx of CABG in 2009, adenocarcinoma of the colon and hx of hemicolectomy: 1. Typical chest pain: Demand Ischemia vs. ACS Pt's pain typical in nature described as pressure w/ nausea. Pt reports no help w/ nitro. * Trop 0.058 > 0.068 > 0.058 * EKG today similar to previous EKGs. Will repeat if chest pain recurs or worsens. * Stress test (05/19/18): Dyskinesia in septum near base of heart. EF: 41% * Most recent stress in May 2018 showed no acute findings. Will wait to order stress test pending troponins. * HEART Score: 5-6 * ECHO & Stress today * CXR: Moderate CHF 2. CHF exacerbation, mild: * Last ECHO (03/07/18): EF 45-50% MR, TR, LVH, Diastolic dysfunction, LA dilation * Lasix 40mg IV * BNP: 590 * Strict I/O * Daily weights 3. COPD exacerbation, mild: * pt requiring 2L O2 oxygen and is not normally on oxygen at baseline * could have been brought on by prior URI since pt's cough changed * DuoNebs prn q4h * Albuterol neb prn q2h * prednisone * azithromycin (500mg day 1, 250mg day 2-5) 4. A-fib, chronic: * Continue home meds: xarelto, diltiazem, and amiodarone * on telemetry, will monitor * pt does not have a pacemaker 5. Marijuana use: * per ex-, pt uses marijuana but is not sure if he uses any other recreational drugs. * UDS: + Cocaine, Marijuana, and Opiates 6. Type 2 diabetes * A1C: 6 * Continue home meds * Uncontrolled in past resulting in bilateral AKAs 7. Chronic kidney disease * Baseline Cr 1.4-1.75 per records * Currently Cr: 2.08 * GFR: 39 > 40 7. Tobacco abuse, chronic smoker * Nicotine patch * Smoking cessation counseling 8. HTN * Continue home meds 9. HLD * Continue home meds Code: FULL VTE PPx: already on xarelto GI PPx: none Diet: heart healthy, carb consistent Dispo: Inpt
[2018-11-20] MEDS ORDERED: Furosemide 40 MG/4 ML VIAL SLOW IVP SCH (06:00)
[2018-11-20 06:35] LABS: Amphetamine Not Detected (NotDetected); Cocaine Metabolite Screen Detected (NotDetected); Medtox Reader # READER 4; Methamphetamine Not Detected (NotDetected); Opiate Screen Detected (NotDetected); Phencyclidine (PCP) Not Detected (NotDetected); THC/Cannabinoid Screen Detected (NotDetected)
[2018-11-20 06:36] LABS: Barbiturates Screen Not Detected (NotDetected); Benzodiazepine Screen Not Detected (NotDetected); Medtox Control Line Valid? VALID (VALID); Methadone Not Detected (NotDetected); Oxycodone Screen Not Detected (NotDetected); Tricyclic Screen Not Detected (NotDetected)
--- NOTE | 2018-11-20 07:28 | RAD ---
CHEST 1 VIEW: Date: 11/19/18 INDICATION: Shortness of breath and acute onset of chest pain. COMPARISON: Prior exam dated 06/21/18. FINDINGS: Midline sternotomy changes are stable. There is cardiomegaly with pulmonary vascular congestion, cent ral edema, and bilateral pleural effusions. No pneumothorax evident. No acute osseous abnormality is evident. IMPRESSION: Findings of moderate CHF. POS: BH
--- NOTE | 2018-11-20 12:39 | HP ---
I have examined the patient. I have discussed the case with Dr. Citlali Barajas and agree with her assessment and plan. HISTORY OF PRESENT ILLNESS: Mr. Calderon is a 63-year-old man, who came in to the ER with cough, wheezing, chest pain, and difficulty breathing. He also carries his history of COPD. He was admitted with a possible COPD exacerbation versus heart failure. PHYSICAL EXAMINATION: VITAL SIGNS: His blood pressure is 134/84, his heart rate is 78, his respirations are 18 and nonlabored, and his room air pulse ox is 98% on 2 L. GENERAL: He is slightly somnolent, but easily arousable. EAR, NOSE, AND THROAT: No erythema or exudate noted. NECK: Supple. CARDIAC: Heart rhythm regular. S4 gallop. No murmur. LUNGS: Coarse rales, some rhonchi. No wheezing. No respiratory distress. ABDOMEN: Flat and soft. No guarding or rebound. EXTREMITIES: No edema. LABORATORY DATA: CBC; white count is 11,200, hemoglobin 15.2, hematocrit 48.2 with an MCV of 91. Blood gas done on O2 of 28% shows a pH of 7.41, pCO2 of 30.6, and a pO2 of 67.5. Chemistries; sodium 135, potassium 4.6, chloride 109, bicarb 18, BUN 25, and creatinine 2.08. His troponins are in the indeterminate range. Chest x-ray shows cardiomegaly with pulmonary vascular congestion and some central edema. Findings consistent with moderate heart failure. ASSESSMENT: 1. Chronic obstructive pulmonary disease exacerbation. 2. Heart failure. PLAN: Admit, treat his COPD with DuoNebs, steroids. Schedule echo and proceed based on findings. Thank you be worthwhile after Mr. Calderon is back to baseline to obtain a room air ABG to make certain his pO2 does not drop below 55, at which time, triggering the need for 18- to 24-hour daily O2. Job ID: [id number]
[2018-11-20] MEDS: predniSONE 20 MG TAB PO SCH (14:04)
[2018-11-20] MEDS: Nicotine 21 MG PATCH TD SCH (14:04)
[2018-11-20] MEDS ORDERED: Aspirin 81 mg Enteric Coated Tablet PO SCH (15:30)
[2018-11-20] MEDS ORDERED: HumaLOG 300 UNITS/3 ML VIAL SC PRN (16:57)
[2018-11-20] MEDS ORDERED: Dextrose 5% in Water 1,000 ML IV PRN (16:57)
[2018-11-20] MEDS ORDERED: Dextrose 50% Abboject 50 ML SYRINGE SLOW IVP PRN (16:57)
[2018-11-20] MEDS: Rivaroxaban 15 MG TAB PO SCH (17:26)
[2018-11-20] MEDS: HumaLOG 300 UNITS/3 ML VIAL SC PRN (17:27)
[2018-11-20] MEDS: Carvedilol 3.125 MG TAB PO SCH (17:27)
--- NOTE | 2018-11-20 17:28 | CON ---
DATE OF CONSULTATION: HISTORY OF PRESENT ILLNESS: Prudencio Calderon is a 63-year-old black male, seen intermittently since 2009. In 2009, he underwent CABG x4 with MORRIS to the LAD and vein graft to the diagonal, ramus, and right posterior descending by Dr. Riley Cardenas. In December 2009, he underwent atrial flutter ablation. He also apparently had some type of intervention performed in [place] and then moved back to this area and I saw him again in November 2010. At that time, he underwent cardiac catheterization and MORRIS to the LAD and vein graft to the right posterior descending were patent. The diagonal and ramus grafts were occluded. One of the occluded grafts had a stent in it. Integrity 2.25 x 18 and 2.5 x 22 were placed in the lower sioux ramus. He apparently moved back to [place] and I did not see him again until April 19, 2017 in the office. He had complained of lower chest pressure while in bed, lasting 4 to 5 minutes. He did not have any chest discomfort with wheeling himself in his wheelchair. Echocardiography revealed study to be technically difficult. There was mild concentric left ventricular hypertrophy with ejection fraction of 45% to 50%, moderate mitral regurgitation, evidence for diastolic dysfunction, and mild tricuspid regurgitation. He also underwent Lexiscan Cardiolite testing, which revealed no evidence of ischemia or fixed defect. There was severe proximal to distal septal hypokinesis (history of CABG) and mild global hypokinesis. There was normal myocardial thickening. He was seen again in the office on May 15, 2017. He did not bring any of his medications and apparently his resolution expert changed a lot of his medications. Cholesterol was elevated and atorvastatin was increased to 80 mg daily. He then presented to the hospital on June 18, 2017, with increased shortness of breath as well as pleuritic chest pain. He had acute on chronic diastolic heart failure, was diuresed, and discharged. He was again admitted in March 2018 with COPD exacerbation and heart failure exacerbation. Urine drug screen was positive for amphetamine, methamphetamine, cocaine, and cannabinoids. He had atrial arrhythmias and was placed on amiodarone, diltiazem, and carvedilol. Echocardiogram revealed ejection fraction of 45% to 50% with severe mitral regurgitation. He has been admitted one week later with bradycardia after taking a double dose of his medications. Cardizem and digoxin were discontinued during that admission and he was continued on carvedilol and amiodarone. He was admitted in May 2018 with iron deficiency anemia and found to have a 3 cm mass in the ascending colon. He underwent nuclear stress test prior to surgery, which revealed no evidence of ischemia. He underwent resection of this and on pathology was found to be [id number] differentiated adenocarcinoma. He was again admitted in June 2018 due to acute on chronic diastolic heart failure and possible community-acquired pneumonia. He now is admitted for cough, occasionally productive of green sputum, wheezing, shortness of breath, and chest pain. He states he has had continual chest pain for one week without resolution of this. The pain is worse when he coughs or takes a deep breath. Apparently, nitroglycerin in the emergency room did not improve his pain. PAST MEDICAL HISTORY: Hypertension, hypercholesterolemia, diabetes, chronic kidney disease, peripheral vascular disease, diastolic CHF. PAST SURGICAL HISTORY: CABG, stent placement in one of the occluded bypass grafts in [place], drug-eluting stent placed in the ramus here, atrial flutter ablation, aortobifemoral bypass, bilateral iliac stents, back surgery, and bilateral [id number] amputation. MEDICATIONS: 1. Amiodarone 200 mg daily. 2. Amitriptyline 25 q.h.s. 3. Norvasc 5 mg daily. 4. Diltiazem 300 daily. 5. Ferrous sulfate 325 b.i.d. 6. Furosemide 40 mg daily. 7. Gabapentin 100 mg b.i.d. 8. Glipizide 5 mg daily. 9. Nitroglycerin p.r.n. 10. Xarelto 15 mg daily. 11. Rosuvastatin 20 mg q.h.s. ALLERGIES: NONE. SOCIAL HISTORY: He continues to smoke 3 to 4 cigarettes per day. He uses marijuana and codeine. FAMILY HISTORY: Positive for coronary artery disease. REVIEW OF SYSTEMS: A 10-point review of systems is unremarkable. PHYSICAL EXAMINATION: VITAL SIGNS: Blood pressure 127/80, pulse of 89. HEENT: PERRL. NECK: Supple. CHEST: Clear, but distant. CARDIOVASCULAR: S1 and S2 normal without any S3, S4, murmurs. ABDOMEN: Normal bowel sounds without tenderness or organomegaly. EXTREMITIES: Reveal bilateral AKA without edema. NEUROLOGIC: Grossly intact. SKIN: Warm and dry. MUSCULOSKELETAL: Revealed palpable upper chest pain, which reproduces his symptoms. LABORATORY DATA: EKG reveals sinus arrhythmia with first-degree AV block, nonspecific ST and T-wave changes. Hemoglobin 15.1, hematocrit 46.4, white count 10,200, platelets 133,000. PH 7.41, pCO2 of 30.6, pO2 of 67.5. Sodium 135, potassium 4.6, chloride 109, carbon dioxide 18, BUN 25, creatinine 2.08. Troponin I is up to 0.068. TSH is normal. Cholesterol 234, triglycerides 108, HDL 60, LDL 152. BNP 593.7. Urine drug screen revealed opioids, cocaine, and cannabinoids. IMPRESSION: 1. Musculoskeletal chest wall pain continually present for the last week, probably secondary to coughing. Pain is worse with coughing. Despite one week of continual pain, he has borderline abnormal troponin I. 2. Chronically elevated troponin I. 3. Status post coronary artery bypass graft x4 in 2009 with left internal mammary artery to the left anterior descending and right posterior descending vein graft patent in November 2010. The ramus and diagonal grafts were occluded. 4. Status post drug-eluting stent placement in the lower sioux ramus in November 2010. 5. History of atrial flutter ablation after coronary artery bypass graft. 6. Hypertension. 7. Hypercholesterolemia with very poor control. He certainly may not be taking the medication. 8. Chronic obstructive pulmonary disease exacerbation. 9. The patient continues to smoke. 10. Cocaine abuse. In the past, he has had methamphetamine in his urine, but not at the present time. 11. Status post bilateral [id number] with history prior to that of aortobifemoral bypass and iliac stents. 12. Diabetes. 13. Positive family history. 14. Paroxysmal atrial fibrillation, on amiodarone and chronic anticoagulation. PLAN: Mr. Calderon has chronically elevated troponin I as evidenced by looking at all of his admissions. Actually, his troponin I at the present time is less than it usually is. This is a type 2 STEMI and I do not feel any further cardiac evaluation is warranted. In May 2018, he did have a normal Cardiolite scan. He will be continued on the amiodarone and his COPD exacerbation currently is being treated. The patient also will be restarted on low-dose carvedilol. Job ID: [id number] [facility]
[2018-11-20] MEDS ORDERED: Benzonatate 100 MG CAP PO PRN (17:36)
[2018-11-20] MEDS ORDERED: guaiFENesin ER 600 MG TAB PO SCH (17:45)
[2018-11-20] MEDS: Rosuvastatin 20 MG TAB PO SCH (21:42)
[2018-11-21 05:28] LABS: Hemoglobin 14.5 g/dL (14.0-18.0); Platelet Count 150 thou/uL (130-400)
[2018-11-21 05:54] LABS: Anion Gap 10 mmol/L (10-20); BUN (Urea Nitrogen) 40 mg/dL (8.4-25.7); Calc. Creatinine Clearance 28 mL/min (70-130); Calcium 8.5 mg/dL (7.8-10.44); Carbon Dioxide 19 mmol/L (23-31); Chloride 104 mmol/L (98-107); Estimated GFR-MDRD 32; Glucose 205 mg/dL (80-115); Potassium 4.4 mmol/L (3.5-5.1); Sodium 129 mmol/L (136-145)
--- NOTE | 2018-11-21 06:01 | PDOC.FM ---
- Subjective Subjective: Pt states that he no longer has chest pain. He has some abdominal pain in the region where he is to have a periumbilical hernia repaired on 11/27. He says his breathing is much improved. - Objective MAR Reviewed: Yes Vital Signs & Weight: Vital Signs (12 hours) Temp Pulse Resp BP Pulse Ox 11/21/18 04:00 97.4 F L 83 16 152/80 H 94 L 11/21/18 00:00 79 16 11/20/18 20:00 98 F 87 16 163/74 H 94 L Weight Admit Weight 64.183 kg Weight 64.183 kg I&O: 11/19/18 11/20/18 11/21/18 06:59 06:59 06:59 Intake Total 240 Output Total 650 Balance -410 Result Diagrams: 11/21/18 05:11 11/21/18 05:11 Phys Exam - Physical Examination Constitutional: NAD HEENT: PERRLA EOMI Neck: supple, full ROM Lungs have rhonchi present Cardiovascular: RRR Gastrointestinal: soft, positive bowel sounds slight tenderness to palpation in the epigastric region Musculoskeletal: pulses present Neurological: normal sensation Psychiatric: normal affect, A&O x 3 Skin: normal turgor Dx/Plan (1) Chest pain Code(s): R07.9 - CHEST PAIN, UNSPECIFIED Status: Acute (2) CHF (congestive heart failure) Code(s): I50.9 - HEART FAILURE, UNSPECIFIED Status: Acute (3) Elevated troponin Code(s): R74.8 - ABNORMAL LEVELS OF OTHER SERUM ENZYMES Status: Acute (4) Acute on chronic renal failure Code(s): N17.9 - ACUTE KIDNEY FAILURE, UNSPECIFIED; N18.9 - CHRONIC KIDNEY DISEASE, UNSPECIFIED Status: Acute (5) Cannabis abuse Code(s): F12.10 - CANNABIS ABUSE, UNCOMPLICATED Status: Chronic (6) HLD (hyperlipidemia) Code(s): E78.5 - HYPERLIPIDEMIA, UNSPECIFIED Status: Chronic Qualifiers: (7) HTN (hypertension) Code(s): I10 - ESSENTIAL (PRIMARY) HYPERTENSION Status: Chronic (8) Tobacco abuse Code(s): Z72.0 - TOBACCO USE Status: Chronic - Plan Plan: 63-yo male w/ PMHx of CABG in 2009, adenocarcinoma of the colon and hx of hemicolectomy: 1. Typical chest pain: NSTEMI Type 2 with Costochondritis Pt's pain typical in nature described as pressure w/ nausea. Pt reports no help w/ nitro. * Trop 0.058 > 0.068 > 0.058 * EKG today similar to previous EKGs. Will repeat if chest pain recurs or worsens. * Stress test (05/19/18): Dyskinesia in septum near base of heart. EF: 41% * Most recent stress in May 2018 showed no acute findings. * HEART Score: 5-6 * ECHO: EF 50-55% with LA dilation, Mod MR, AV Sclerosis, Mild MR * CXR: Moderate CHF * Consulted Cardiology, appreciate recs. Determined no need to stress at this time. 2. CHF exacerbation, mild: * Last ECHO (03/07/18): EF 45-50% MR, TR, LVH, Diastolic dysfunction, LA dilation * Lasix 40mg IV * BNP: 590 * Strict I/O * Daily weights 3. COPD exacerbation, mild: * pt is no longer requiring Oxygen and is sating well * could have been brought on by prior URI since pt's cough changed * DuoNebs prn q4h, Albuterol neb prn q2h, prednisone, Mucinex started * azithromycin (500mg day 1, 250mg day 2-5) changed to Doxy 200 daily due to QT Prolongation 4. A-fib, chronic: * Continue home meds: xarelto, diltiazem, and amiodarone * on telemetry, will monitor * pt does not have a pacemaker 5. Marijuana use: * per ex-, pt uses marijuana but is not sure if he uses any other recreational drugs. * UDS: + Cocaine, Marijuana, and Opiates 6. Type 2 diabetes * A1C: 6 * BG elevated 161-256 * Continue home meds * Uncontrolled in past resulting in bilateral AKAs 7. Chronic kidney disease * Baseline Cr 1.4-1.75 per records * Currently Cr: 2.53 * GFR: 39 > 32 * Consider Nephrology consult 7. Tobacco abuse, chronic smoker * Nicotine patch * Smoking cessation counseling 8. HTN * Continue home meds 9. HLD * Continue home meds Code: FULL VTE PPx: already on xarelto GI PPx: none Diet: heart healthy, carb consistent Dispo: Inpt. D/c pending COPD Exac improvement. Cardiology determined he does not need stress or cath at this time. Addendum - Attending - Attending Attestation Date/Time: 11/21/18 7399 I personally evaluated the patient and discussed the management with team. I agree with the History, Examination, Assessment and Plan documented above with any addition or exceptions noted below. Quite asymptomatic this AM but now with WILLIS possibly 2/2 diuresis. Will monitor and dispo pending.
[2018-11-21] MEDS ORDERED: Furosemide 40 MG TAB PO SCH (07:30)
[2018-11-21] MEDS: predniSONE 20 MG TAB PO SCH (07:52)
[2018-11-21] MEDS: Aspirin 81 mg Enteric Coated Tablet PO SCH (07:54)
[2018-11-21] MEDS: Carvedilol 3.125 MG TAB PO SCH (07:54)
[2018-11-21] MEDS: Ferrous Sulfate 325 MG TAB PO SCH ×2 (07:54→16:40)
[2018-11-21] MEDS: Amiodarone 200 MG TAB PO SCH (07:55)
[2018-11-21] MEDS: Nicotine 21 MG PATCH TD SCH (07:55)
[2018-11-21] MEDS: Pregabalin 50 MG CAP PO SCH ×2 (07:55→20:29)
[2018-11-21] MEDS: guaiFENesin/DM ER PO SCH ×2 (08:41→20:29)
[2018-11-21] MEDS ORDERED: Doxycycline 100 MG CAP PO SCH (09:00)
[2018-11-21] MEDS ORDERED: guaiFENesin ER 600 MG TAB PO SCH (09:00)
[2018-11-21] MEDS ORDERED: Diltiazem HCl CD 300 mg Capsule PO SCH (09:00)
[2018-11-21] MEDS ORDERED: Azithromycin 250 MG TAB PO SCH (09:00)
[2018-11-21] MEDS ORDERED: Sodium Chloride 0.9% 1,000 ML IV SCH (09:15)
[2018-11-21] MEDS: HumaLOG 300 UNITS/3 ML VIAL SC PRN (11:22)
[2018-11-21 13:44] LABS: Anion Gap 15 mmol/L (10-20); BUN (Urea Nitrogen) 44 mg/dL (8.4-25.7); Calc. Creatinine Clearance 26 mL/min (70-130); Calcium 8.6 mg/dL (7.8-10.44); Carbon Dioxide 20 mmol/L (23-31); Chloride 103 mmol/L (98-107); Estimated GFR-MDRD 29; Glucose 240 mg/dL (80-115); Potassium 4.9 mmol/L (3.5-5.1); Sodium 133 mmol/L (136-145)
[2018-11-21] MEDS: Rivaroxaban 15 MG TAB PO SCH (16:40)
[2018-11-21] MEDS: Carvedilol 6.25 MG TAB PO SCH (16:40)
[2018-11-21 17:54] LABS: Creatinine, Urine 90.05 mg/dL (63-166)
[2018-11-21] MEDS: Rosuvastatin 20 MG TAB PO SCH (20:30)
[2018-11-21] MEDS: Doxycycline 100 MG CAP PO SCH (20:30)
--- NOTE | 2018-11-22 02:03 | CON ---
DATE OF CONSULTATION: 11/21/2018 CONSULTING PHYSICIAN: Dr. Gonzalez. REASON FOR CONSULTATION: Acute kidney injury on chronic kidney disease. REASON FOR ADMISSION: Chest pain. HISTORY OF PRESENT ILLNESS: This is a 63-year-old male with history of coronary artery disease, substance abuse, type 2 diabetes, COPD, hypertension, hyperlipidemia, came to the hospital with chest pain, and the patient was positive for cocaine, cannabinoids and opiates. He is feeling better, but is found to have elevated kidney function. He does follow with Dr. Duran. His baseline creatinine is around 2 to 2.1 and was found at 2.7. Nephrology is consulted. PAST MEDICAL HISTORY: Positive for coronary artery disease, CKD, type 2 diabetes, substance abuse, COPD, hypertension, hyperlipidemia, and AFib. PAST SURGICAL HISTORY: CABG and hemicolectomy. HOME MEDICATIONS: 1. Xarelto. 2. Cardizem. 3. Feosol. 4. Carvedilol. 5. Lyrica. 6. Glipizide. ALLERGIES: NO KNOWN DRUG ALLERGIES. 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 FAMILY HISTORY: No history of kidney disease. REVIEW OF SYSTEMS: CONSTITUTIONAL: Negative for weight loss or gain, ability to conduct usual activities. SKIN: Negative for rash, itching. EYES: Negative for double vision, pain. ENT/MOUTH: Negative for nose bleeding, neck stiffness, pain, tenderness. CARDIOVASCULAR: Negative for palpitations, dyspnea on exertion, orthopnea. RESPIRATORY: Negative for shortness of breath, wheezing, cough, hemoptysis, fever or night sweats. GASTROINTESTINAL: Negative for poor appetite, abdominal pain, heartburn, nausea, vomiting, constipation, or diarrhea. GENITOURINARY: Negative for urgency, frequency, dysuria, nocturia. MUSCULOSKELETAL: Negative for pain, swelling. NEUROLOGIC/PSYCHIATRIC: Negative for anxiety, depression. ALLERGY/IMMUNOLOGIC: Negative for skin rash, bleeding tendency. PHYSICAL EXAMINATION: GENERAL: This is a well-built male, in no apparent distress. VITAL SIGNS: Temperature 97.9, pulse of 77, respiratory rate HEENT: Atraumatic and normocephalic. Oral mucosa moist. NECK: Supple. CVS: S1 and S2 heard RESPIRATORY: Clear. GASTROINTESTINAL: Abdomen is soft. MUSCULOSKELETAL: No tenderness. No edema. DERMATOLOGIC: No skin rash. NEUROLOGIC: Alert and awake. PSYCHIATRIC: Mood and affect normal. LABORATORY DATA: Hemoglobin 14.5, potassium 4.9, BUN 44, creatinine is 2.7. Echocardiogram with EF of 50 to 55. ASSESSMENT AND PLAN: 1. Acute kidney injury on chronic kidney disease, stage 3. The patient was counseled most likely secondary to substance abuse. The patient was advised to quit cocaine use. 2. Cardiorenal syndrome and substance abuse. 3. Hyponatremia. 4. Hyperglycemia. 5. Prognosis, guarded. The patient was counselled. Avoid nephrotoxins. Lasix is on hold. We will follow. Thank you for the consult. Job ID: [id number]
--- NOTE | 2018-11-22 05:43 | PDOC.FM ---
- Subjective Subjective: Pt says he is not hurting anywhere this morning. He is eating well. Last BM was on 11/19. He is still coughing and producing green sputum, but it is improving. - Objective MAR Reviewed: Yes Vital Signs & Weight: Vital Signs (12 hours) Temp Pulse Resp BP Pulse Ox 11/22/18 04:00 97.4 F L 75 18 176/74 H 96 11/21/18 20:00 98 11/21/18 19:48 99.2 F 78 16 160/86 H 97 Weight Admit Weight 64.183 kg Weight 64.183 kg I&O: 11/20/18 11/21/18 11/22/18 06:59 06:59 06:59 Intake Total 436 578 7843 Output Total 644 350 0758 Balance -410 0 -110 Result Diagrams: 11/21/18 05:11 11/22/18 05:07 Phys Exam - Physical Examination Constitutional: NAD HEENT: PERRLA, moist MMs Neck: supple, full ROM Respiratory: clear to auscultation bilateral Cardiovascular: RRR, no significant murmur Gastrointestinal: soft, non-tender, positive bowel sounds Musculoskeletal: pulses present Normal movement Psychiatric: normal affect, A&O x 3 Dx/Plan (1) Chest pain Code(s): R07.9 - CHEST PAIN, UNSPECIFIED Status: Acute (2) CHF (congestive heart failure) Code(s): I50.9 - HEART FAILURE, UNSPECIFIED Status: Acute (3) Elevated troponin Code(s): R74.8 - ABNORMAL LEVELS OF OTHER SERUM ENZYMES Status: Acute (4) Acute on chronic renal failure Code(s): N17.9 - ACUTE KIDNEY FAILURE, UNSPECIFIED; N18.9 - CHRONIC KIDNEY DISEASE, UNSPECIFIED Status: Acute (5) Cannabis abuse Code(s): F12.10 - CANNABIS ABUSE, UNCOMPLICATED Status: Chronic (6) HLD (hyperlipidemia) Code(s): E78.5 - HYPERLIPIDEMIA, UNSPECIFIED Status: Chronic Qualifiers: (7) HTN (hypertension) Code(s): I10 - ESSENTIAL (PRIMARY) HYPERTENSION Status: Chronic (8) Tobacco abuse Code(s): Z72.0 - TOBACCO USE Status: Chronic - Plan Plan: 63-yo male w/ PMHx of CABG in 2009, adenocarcinoma of the colon and hx of hemicolectomy: 1. Typical chest pain: NSTEMI Type 2 with Costochondritis-Resolved Pt's pain typical in nature described as pressure w/ nausea. Pt reports no help w/ nitro. * Trop 0.058 > 0.068 > 0.058 * EKG today similar to previous EKGs. Will repeat if chest pain recurs or worsens. * Stress test (05/19/18): Dyskinesia in septum near base of heart. EF: 41% * Most recent stress in May 2018 showed no acute findings. * HEART Score: 5-6 * ECHO: EF 50-55% with LA dilation, Mod MR, AV Sclerosis, Mild MR * CXR: Moderate CHF * Consulted Cardiology, appreciate recs. Determined no need to stress at this time. 2. CHF exacerbation-mild * Last ECHO (03/07/18): EF 45-50% MR, TR, LVH, Diastolic dysfunction, LA dilation * Stopped Lasix 40mg IV * BNP: 590 * Strict I/O, net negative .1 L * Daily weights 3. COPD exacerbation, mild- Improving * pt is no longer requiring Oxygen and is sating well * could have been brought on by prior URI since pt's cough changed * DuoNebs prn q4h, Albuterol neb prn q2h, prednisone, Mucinex started * Doxy 200 BID 4. A-fib, chronic: * Continue home meds: xarelto and amiodarone * on telemetry, will monitor * pt does not have a pacemaker 5. Marijuana use: * per ex-, pt uses marijuana but is not sure if he uses any other recreational drugs. * UDS: + Cocaine, Marijuana, and Opiates 6. Type 2 diabetes * A1C: 6 * BG elevated 141-249 * Uncontrolled in past resulting in bilateral AKAs 7. Chronic kidney disease * Baseline Cr 1.4-1.75 per records * Currently Cr: 2.38 * GFR: 39 > 34 * Consulted Nephrology, appreciate recs. * Lasix and Creatinine is improving. * FeUrea: 44.1, Intrinsic 7. Tobacco abuse, chronic smoker * Nicotine patch * Smoking cessation counseling 8. HTN * Continue home meds 9. HLD * Continue home meds Code: FULL VTE PPx: already on xarelto GI PPx: none Diet: heart healthy, carb consistent Dispo: Inpt. D/c possibly today. Addendum - Attending - Attending Attestation Date/Time: 11/22/18 [id number] I personally evaluated the patient and discussed the management with Dr. Mack and team. I agree with the History, Examination, Assessment and Plan documented above with any addition or exceptions noted below. Improved today. Denies cp/sob/n/v/f/c. Likely d/c this PM.
[2018-11-22 06:17] LABS: Anion Gap 12 mmol/L (10-20); BUN (Urea Nitrogen) 49 mg/dL (8.4-25.7); Calc. Creatinine Clearance 30 mL/min (70-130); Calcium 8.5 mg/dL (7.8-10.44); Carbon Dioxide 20 mmol/L (23-31); Chloride 105 mmol/L (98-107); Estimated GFR-MDRD 34; Glucose 170 mg/dL (80-115); Potassium 4.1 mmol/L (3.5-5.1); Sodium 133 mmol/L (136-145)
[2018-11-22] MEDS: Amiodarone 200 MG TAB PO SCH (07:59)
[2018-11-22] MEDS: Carvedilol 6.25 MG TAB PO SCH (07:59)
[2018-11-22] MEDS: Aspirin 81 mg Enteric Coated Tablet PO SCH (07:59)
[2018-11-22] MEDS: guaiFENesin/DM ER PO SCH (07:59)
[2018-11-22] MEDS: Doxycycline 100 MG CAP PO SCH (07:59)
[2018-11-22] MEDS: Ferrous Sulfate 325 MG TAB PO SCH (08:00)
[2018-11-22] MEDS: predniSONE 20 MG TAB PO SCH (08:00)
[2018-11-22] MEDS: Pregabalin 50 MG CAP PO SCH (08:00)
[2018-11-22] MEDS: Nicotine 21 MG PATCH TD SCH (08:01)
--- NOTE | 2018-11-22 11:16 | PRG ---
DATE OF SERVICE: 11/22/2018 SUBJECTIVE: Patient was seen and examined at bedside and overnight events noted. Patient denies any shortness of breath or chest pain or palpitation. No history of nausea or vomiting or diarrhea or fever or chills or cramps. OBJECTIVE: GENERAL: This is a well-built male, in no apparent distress. VITAL SIGNS: Temperature 97.5. Heart rate 71. Respiratory rate 18. Blood pressure 164/87. HEENT: Atraumatic, normocephalic. Oral mucosa is moist NECK: Supple. CARDIOVASCULAR: S1, S2 heard. Rate and rhythm regular. RESPIRATORY: Clear to auscultation. GASTROINTESTINAL: Abdomen is soft. MUSCULOSKELETAL: No tenderness. No edema. DERMATOLOGIC: No skin rash. NEUROLOGIC: Alert and awake and oriented X3. No focal neurologic deficits. Moving all the extremities. PSYCHIATRIC: Mood and affect normal. LABORATORY DATA: Potassium 4.1, BUN is 49, and creatinine is 2.3. ASSESSMENT AND PLAN: 1. Acute kidney injury on chronic kidney disease stage 3 with slight improvement in renal function. Avoid nephrotoxins. 2. Hyponatremia. 3. Metabolic acidosis. 4. Cardiorenal syndrome. 5. Substance abuse. The patient was seen in consult on the risk factors and complications from substance abuse, including renal injury and need for dialysis. Discussed with the patient. Job ID: [id number]
[2018-11-22] MEDS: HumaLOG 300 UNITS/3 ML VIAL SC PRN (11:44)
[2018-11-22 11:52] VITALS: BP 141/73; TEMP 98
--- NOTE | 2018-11-25 12:16 | DIS ---
DATE OF ADMISSION: 11/19/2018 DATE OF DISCHARGE: 11/22/2018 RESIDENT: Adi Mack MD. ADMITTING ATTENDING: Gio Ramey MD. DISCHARGE ATTENDING: Gio Ramey MD. CONSULTS: 1. Cardiology. 2. Nephrology. PROCEDURES: * Chest x-ray (11/19): findings of moderate CHF. * Echo (11/20): EF of 50% to 55%, mild left atrial dilation, moderate mitral regurgitation, aortic valve sclerosis, and mild tricuspid regurgitation. PRIMARY DIAGNOSES: 1. Chronic obstructive pulmonary disease exacerbation. 2. Chronic kidney disease type 3. 3. Elevated troponin. SECONDARY DIAGNOSES: 1. Atrial fibrillation. 2. Coronary artery disease. 3. Cannabis abuse. 4. Tobacco abuse. 5. Diabetes type 2. 6. Hyperlipidemia. 7. Hypertension. DISCHARGE MEDICATIONS: 1. Doxycycline 100 mg p.o. b.i.d. for eight days 2. Mucinex DM q.12 hours 3. Prednisone 40 mg for two days 4. Rosuvastatin 40 mg p.o. at bedtime. DISCONTINUED MEDICATIONS: None. HISTORY OF PRESENT ILLNESS: The patient is a 63-year-old gentleman complaining of cough, wheezing, chest pain, and trouble breathing. Denies fever. Endorses nausea. Denies diarrhea, started feeling bad with a cough for 2 or 3 days. Endorses green sputum production. Chest pain started two to three days ago as well, described as someone sitting on his chest. Denies radiation. Denies diaphoresis. Endorses nausea, severity 10/10. The patient was minimally responsive to questions and seemed more lethargic on admission, most of the history was obtained from his and mother. In the ED, he was given nitro, DuoNeb, morphine, aspirin, methylprednisolone 125 mg. He was also given 40 of IV Lasix. 1. Typical chest pain: NSTEMI Type 2 with Costochondritis-Resolved Pt's pain typical in nature described as pressure w/ nausea. Pt reports no help w/ nitro. * Trop 0.058 > 0.068 > 0.058 * EKG today similar to previous EKGs. Will repeat if chest pain recurs or worsens. * Stress test (05/19/18): Dyskinesia in septum near base of heart. EF: 41% * Most recent stress in May 2018 showed no acute findings. * HEART Score: 5-6 * ECHO: EF 50-55% with LA dilation, Mod MR, AV Sclerosis, Mild MR * CXR: Moderate CHF * Consulted Cardiology, appreciate recs. Determined no need to stress at this time. 2. CHF exacerbation-mild * Last ECHO (03/07/18): EF 45-50% MR, TR, LVH, Diastolic dysfunction, LA dilation * Stopped Lasix 40mg IV * BNP: 590 * Strict I/O, net negative .1 L * Daily weights 3. COPD exacerbation, mild- Improving * pt is no longer requiring Oxygen and is sating well * could have been brought on by prior URI since pt's cough changed * DuoNebs prn q4h, Albuterol neb prn q2h, prednisone, Mucinex started * Doxy 200 BID 4. A-fib, chronic: * Continue home meds: xarelto and amiodarone * on telemetry, will monitor * pt does not have a pacemaker 5. Marijuana use: * per ex-, pt uses marijuana but is not sure if he uses any other recreational drugs. * UDS: + Cocaine, Marijuana, and Opiates 6. Type 2 diabetes * A1C: 6 * BG elevated 141-249 * Uncontrolled in past resulting in bilateral AKAs 7. Chronic kidney disease * Baseline Cr 1.4-1.75 per records * Currently Cr: 2.38 * GFR: 39 > 34 * Consulted Nephrology, appreciate recs. * Lasix and Creatinine is improving. * FeUrea: 44.1, Intrinsic 7. Tobacco abuse, chronic smoker * Nicotine patch * Smoking cessation counseling 8. HTN * Continued home meds 9. HLD * Continued home meds Disposition: Stable Discharge Instructions: * Location: Home * Activity: As tolerated * Diet: HHLSo and CC * Follow-up: * PCP: [facility] 12/04 * Cardiology: Andrew 2-3 weeks * [facility]- Will call to schedule Job ID: [id number] [facility]
== END 2018-11-22 14:13 | disposition home or self-care (01) | DRG 280 ==
LOC: ERS 20:09 → 2NO 22:02
PROVIDERS: ADMIT Family Medicine; ATTEND Family Medicine
DX: I13.0 Hypertensive heart and chronic kidney disease with heart failure and stage 1 through stage 4 chronic kidney disease, or unspecified chronic kidney disease (principal); I21.A1 Myocardial infarction type 2; I50.31 Acute diastolic (congestive) heart failure; J44.1 Chronic obstructive pulmonary disease with (acute) exacerbation; N17.9 Acute kidney failure, unspecified; E87.1 Hypo-osmolality and hyponatremia; E87.2 Acidosis; E11.22 Type 2 diabetes mellitus with diabetic chronic kidney disease; N18.3 Chronic kidney disease, stage 3 (moderate); E11.51 Type 2 diabetes mellitus with diabetic peripheral angiopathy without gangrene; E11.65 Type 2 diabetes mellitus with hyperglycemia; I25.10 Atherosclerotic heart disease of native coronary artery without angina pectoris; F12.10 Cannabis abuse, uncomplicated; E78.00 Pure hypercholesterolemia, unspecified; F17.200 Nicotine dependence, unspecified, uncomplicated; D63.1 Anemia in chronic kidney disease; I48.0 Paroxysmal atrial fibrillation; E78.5 Hyperlipidemia, unspecified; M94.0 Chondrocostal junction syndrome [Tietze]; Z89.611 Acquired absence of right leg above knee; Z79.4 Long term (current) use of insulin; Z95.1 Presence of aortocoronary bypass graft; Z89.612 Acquired absence of left leg above knee; Z95.5 Presence of coronary angioplasty implant and graft; Z79.01 Long term (current) use of anticoagulants; Z90.49 Acquired absence of other specified parts of digestive tract
CPT/HCPCS: 36415; 36416; 71045; 80048; 80053; 80061; 80306; 82553; 82570; 82805; 83036; 83735; 83880; 84145; 84443; 84484; 84540; 85014; 85018; 85025; 85049; 93005; 93306; 93798; 94640; 94644; 94760; 96374; 96375; J1940; J2270; J2930; J7512; J7611; J7620

== ENCOUNTER 2018-11-27 06:12 | Day surgery (SDC) | payer OTHER ==
--- NOTE | 2018-11-26 15:15 | HP ---
HISTORY OF PRESENT ILLNESS: Prudencio Calderon is a 63-year-old black male, bilateral amputee above the knee, mobility with wheelchair and transfers independently. The patient smokes half a pack a day, smokes marijuana one or more times a day, and drinks alcohol on weekends, 12 packs. The patient presents with an incisional hernia between his umbilicus and xiphoid. While in detention, the patient underwent laparoscopic right colectomy. Pathology revealing T2N0M0 colon cancer. All margins negative. Lymphovascular invasion, negative. He reports today with incisional hernia. Plan is for robotic mesh repair, possible open repair. He understands the risks and benefits, and consents. He will stop smoking tobacco and marijuana prior to the operation. MEDICATIONS: 1. Lyrica. 2. Aspirin. 3. Glipizide ER 2.5 mg once a day. 4. Atorvastatin daily. 5. Furosemide daily. PAST MEDICAL HISTORY: Diabetes mellitus; hypertension; hyperlipidemia; 4-vessel bypass in April 2009, previous stress test negative; bilateral AKAs; ongoing tobacco abuse; chronic kidney disease; history of atrial flutter and ablation in 2009; substance abuse, marijuana and tobacco. PAST SURGICAL HISTORY: Bilateral zoolk-lqx-harf amputations in 2013 and 2010; vasectomy; back surgery in 2008; open heart surgery in 2006; colon resection on 05/22/2018. REVIEW OF SYSTEMS: Noncontributory. PHYSICAL EXAMINATION: VITAL SIGNS: Blood pressure 140/78, pulse 80, temperature 98.6 degrees. HEAD, EARS, EYES, NOSE AND THROAT: Unremarkable. LUNGS: Clear to auscultation. CARDIAC: Regular rate and rhythm without murmur or gallop. ABDOMEN: Soft and nontender. Incisional hernia between his umbilicus and xiphoid. EXTREMITIES: Status post bilateral nlivc-rpo-loek amputations. ASSESSMENT AND PLAN: Incisional hernia. Recommend tobacco cessation two weeks prior to the robotic mesh repair of incisional hernia, possible open repair. He should abstain from lifting more than 25 to 30 pounds postoperatively. He understands the risks and benefits, and consents. Job ID: [id number]
[2018-11-27] MEDS ORDERED: Bupivacaine HCl 0.5%/Epinephrine 1:200,000/PF 30 ml Vial ONE (06:38)
--- NOTE | 2018-11-27 09:36 | PRG ---
DATE OF SERVICE: 11/27/2018 Prudencio Calderon presents today for elective robotic incisional hernia repair with mesh. The patient underwent in May 2018 laparoscopic right colectomy and has an incisional hernia that we are planning to repair. He has known chronic kidney disease and followed by Dr. Duran and Dr. Diaz for this. The patient smokes cannabis every day. He has a history of cocaine use, but has not used this in many months. He is a bilateral aigoi-fnl-zqkr amputee. He presents this morning with a chronic cough. He was recently hospitalized for 2 days, discharged on November 22. During that hospitalization, he was seen by Dr. Diaz, Nephrology and Dr. Morales, Cardiology, admitted by [facility]. He was noted to have his baseline chronic kidney disease. It did improve with hydration. Recall is that he had a cardiac stress test in May that revealed some global hypokinesis and scarred ventricle, but no ischemic changes. He had a recent echocardiogram during this recent hospitalization in November 2018 demonstrating 50% to 55% cardiac ejection fraction improved from past echocardiogram with some evidence of septal hypokinesis consistent with his known past coronary artery disease status post coronary artery bypass grafting and stenting. Dr. Morales saw him during that hospitalization. At that time, he had chest wall pain from coughing, but no evidence of coronary artery disease. I have personally discussed with Dr. Morales today, substantiating my opinion that the patient does not need further cardiac evaluation, his cardiac status is as good as it will be. Chest x-ray obtained 2 to 3 days ago is improved to chest x-ray 06/21/2018. He has a chronic effusions, right worse than left. The patient's anticoagulation has been discontinued. At this point, I have recommended the patient stop smoking cannabis at least 2 to 3 weeks prior to surgery. He should maintain follow ups with Dr. Diaz and Dr. Duran, Nephrology regarding his chronic kidney disease. His anticoagulation has been discontinued. We will optimize his pulmonary status when he will see me in the office in a week or 2 and we will reschedule his robotic incisional hernia repair with mesh. He is agreeable to this plan. We will plan preoperative nebulizer treatment prior to his next planned surgery. Job ID: [id number]
== END 2018-11-27 07:36 | disposition home or self-care (01) ==
LOC: SDC 06:12
PROVIDERS: ATTEND Specialist
DX: K43.2 Incisional hernia without obstruction or gangrene (principal); Z53.8 Procedure and treatment not carried out for other reasons; Z87.891 Personal history of nicotine dependence
CPT/HCPCS: J0131; J0670; J0690

== ENCOUNTER 2019-03-07 15:26 | Inpatient (IN) | payer OTHER ==
[2019-03-07 16:08] LABS: #Basophils 0.1 thou/uL (0.0-0.2); #Eosinphils 0.3 thou/uL (0.0-0.7); #Lymphocytes 2.1 thou/uL (1.20-3.40); #Monocytes 0.9 thou/uL (0.11-0.59); #Neutrophils 7.6 thou/uL (1.40-6.50); %Basophils 0.9 % (0.0-1.0); %Eosinophils 2.5 % (0.0-10.0); %Lymphocytes 19.2 % (21.0-51.0); %Monocytes 8.5 % (0.0-10.0); %Neutrophils 68.9 % (42.0-75.0); Hemoglobin 15.1 g/dL (14.0-18.0); Mean Corpuscular HGB CONC 31.5 g/dL (32.0-36.0); Mean Corpuscular Hemoglobin 28.5 pg (27.0-31.0); Mean Corpuscular Volume 90.3 fL (78.0-98.0); Mean Platelet Volume 10.5 fL (7.4-10.4); Platelet Count 189 thou/uL (130-400); RBC Distribution Width 12.8 % (11.5-14.5); White Blood Cell (WBC) Count 11.1 thou/uL (4.8-10.8)
--- NOTE | 2019-03-07 16:15 | RAD ---
Chest one view HISTORY: Dyspnea. COMPARISON: 11/19/2018. FINDINGS: Cardiac silhouette is magnified by projection and partially obscured by increasing bilatera l pleural fluid and dense bibasilar infiltrates. Pulmonary vasculature is less engorged than on the prior study. Mediastinum is midline with postoperative changes and aortic calcification. No evidence of pneumothorax. campus monitor leads overlie the chest. IMPRESSION: While pulmonary edema appears less than on the prior study, bilateral pleural fluid has i ncreased significantly. Atherosclerosis
[2019-03-07 16:30] LABS: ALT (SGPT) 15 U/L (8-55); AST (SGOT) 19 U/L (5-34); Albumin 3.2 g/dL (3.4-4.8); Alkaline Phosphatase 166 U/L (40-110); Anion Gap 13 mmol/L (10-20); BUN (Urea Nitrogen) 34 mg/dL (8.4-25.7); Bilirubin, Total 0.3 mg/dL (0.2-1.2); Calc. Creatinine Clearance 0 mL/min (70-130); Calcium 8.6 mg/dL (7.8-10.44); Carbon Dioxide 21 mmol/L (23-31); Chloride 107 mmol/L (98-107); Estimated GFR-MDRD 21; Globulin 3.7 g/dL (2.4-3.5); Glucose 183 mg/dL (80-115); Lipase 22 U/L (8-78); Potassium 4.8 mmol/L (3.5-5.1); Protein, Total 6.9 g/dL (5.8-8.1); Sodium 136 mmol/L (136-145)
[2019-03-07 16:41] LABS: Actual Bicarbonate (HCO3a) 20.2 mEq/L (22-28); Analyzer IN Cardio ER; Base Excess (BEa) -4.1 mEq/L (-2.0 to +3.0); Calcium, Ionized 1.17 mmol/L (1.12-1.30); O2 Tension (PaO2) 68.4 mmHg (> 80.0); Potassium - ABG Lab 4.58 mmol/L (3.70-5.30); pH, Arterial 7.38 (7.35-7.45)
[2019-03-07 16:42] LABS: Puncture Site LRA
[2019-03-07] MEDS ORDERED: Aspirin Chewable 81 MG TAB ONE (16:46)
[2019-03-07] MEDS ORDERED: Furosemide 40 MG/4 ML VIAL ONE (16:48)
[2019-03-07 16:52] LABS: CKMB 2.7 ng/mL (0-6.6)
--- NOTE | 2019-03-07 16:55 | PDOC.FPRHP ---
- History of Present Illness Chief Complaint: cp, sob History of Present Illness: Patient is a 63M with a PMHx of HTN, CHF, COPD, bilateral AKA from diabetic neuropathy, DM2 that presents to the ED with SO and cp. Patient states that he "couldn't breathe" the last 2-3 days. He reports that this has happened before due to "fluid build up" in his lungs. Patient has 2 inhalers he uses throughout the day. He reports that exertion makes his SOB worse. She states that he cannot go "very far at all" before he is short of breath. He has been coughing up green sputum for the last 2-3 months, which has actually reportedly improved. He has chronic orthopnea, sleeps with 1-2 stacked pillows, often sleeps on his side. Woke up last night short of breath. He is supposed to do a sleep study, has not done this yet. He also reports of sub-sternal chest pain. He reports that increases when he is coughing. Reports that he has been taking all of his medicines as prescribed. He has increased fluid intake over the holidays. Increased alcohol intake over the holidays. Has also been smoking crack cocaine and meth. No IV drug use. Denies swelling. Denies dizziness, mendez, n/v. Reports of diarrhea today. Reports of phantom pains. PCP: [facility] ED Course: Pt give 40 IV lasix and placed on BIPAP in ED due to increased work of breathing. No hypoxia. - Allergies/Adverse Reactions Allergies Allergy/AdvReac Type Severity Reaction Status Date / Time No Known Allergies Allergy Verified 11/26/18 10:38 - Home Medications Medication Instructions Recorded Confirmed Type Carvedilol 6.25 mg PO BID-WM 11/20/18 11/26/18 History Pregabalin [Lyrica] 200 mg PO BID 11/20/18 11/26/18 History glipiZIDE [glipiZIDE ER] 2.5 mg PO DAILY-AC 11/20/18 11/26/18 History Nicotine [Nicoderm CQ] 21 mg TD DAILY patch 11/22/18 11/26/18 Rx Rosuvastatin [Crestor] 40 mg PO HS #30 tab 11/22/18 11/26/18 Rx guaiFENesin/DM ER [Mucinex DM] 1 tab PO Q12HR #24 tab 11/22/18 11/26/18 Rx Amiodarone [Cordarone] 200 mg PO DAILY 03/07/19 03/07/19 History Amitriptyline HCl [Elavil] 25 mg PO HS 03/07/19 03/07/19 History Budesonide-Formoterol [Symbicort 1 puff INH BID 03/07/19 03/07/19 History 160-4.5] Diltiazem HCl [Diltiazem 24Hr ER] 300 mg PO 03/07/19 History Ferrous Sulfate [Iron] 325 mg PO DAILY 03/07/19 03/07/19 History Furosemide [Lasix] 40 mg PO DAILY 03/07/19 03/07/19 History Ipratropium/Albuterol Sulfate 3 ml NEB QID 03/07/19 03/07/19 History [Duoneb] - History PMHx: HTN, CHF, COPD, bilateral AKA, DM2 from diabetic neuropathy PSHx: bilateral AKA (2010,2011), CABG x 4 vessel, partial colectomy, diskectomy FHx: DM2; no HTN or AK Social: 5-6 cig/day, occ etoh use (increased during the holiday season), smoking crack cocaine and meth. Family friend comes out to help him. - Review of Systems General: reports: fever/chills (chills), weight/appetite/sleep changes ( decreased appetite) Eyes: denies: eye pain, vision changes ENT: reports: rhinorrhea. denies: nasal congestion Respiratory: reports: cough, shortness of breath Cardiovascular: reports: chest pain. denies: edema Gastrointestinal: reports: diarrhea. denies: nausea, vomiting Genitourinary: denies: dysuria, polyuria Skin: denies: lesions, jaundice Musculoskeletal: denies: tenderness, swelling Neurological: denies: syncope, seizure Psychological: denies: anxiety, depression - Vital signs BP: [143/77] HR: [56] RR: [28] Tmax: [] Pox: [99]% on [bipap] Wt: [61.2kg] - Physical Exam Constitutional: awake, alert and oriented, other (talking comfortably on bipap) -Constitutional: mild resp distress HEENT: normocephalic and atraumatic, PERRLA, EOMI, grossly normal vision, grossly normal hearing, MMM, oropharynx clear -HEENT: scleral icterus. Neck: supple, FROM Chest: no-tender to palpation, no lesions Heart: other (sinus yesica) -Lungs: absent breath sounds bibasilar JOSE rhonchi. Abdomen: soft, other (umbilical hernia, non-tender) Musculoskeletal: other (bilateral AKA) -Musculoskeletal: no pitting edema at AKA stumps. Neurological: no focal deficit, normal sensation Skin: good turgor, capillary refill <2 seconds Heme/Lymphatic: no unusual bruising or bleeding, no purpura, no petechia Psychiatric: normal mood and affect, good judgment and insight, intact recent and remote memory FMR H&P: Results - Labs Result Diagrams: 03/07/19 16:00 03/07/19 16:00 Lab results: WBC 11.1 thou/uL (4.8-10.8) H 03/07/19 16:00 Hgb 15.1 g/dL (14.0-18.0) 03/07/19 16:00 Hct 47.9 % (42.0-52.0) 03/07/19 16:00 MCV 90.3 fL (78.0-98.0) 03/07/19 16:00 Plt Count 189 thou/uL (130-400) 03/07/19 16:00 Neutrophils % 68.9 % (42.0-75.0) 03/07/19 16:00 ABG pH 7.38 (7.35-7.45) 03/07/19 16:35 ABG pCO2 35.0 mmHg (35.0-45.0) 03/07/19 16:35 ABG pO2 68.4 mmHg (> 80.0) 03/07/19 16:35 Sodium 136 mmol/L (136-145) 03/07/19 16:00 Potassium 4.8 mmol/L (3.5-5.1) 03/07/19 16:00 Chloride 107 mmol/L (98-107) 03/07/19 16:00 Carbon Dioxide 21 mmol/L (23-31) L 03/07/19 16:00 BUN 34 mg/dL (8.4-25.7) H 03/07/19 16:00 Creatinine 3.66 mg/dL (0.7-1.3) H 03/07/19 16:00 Glucose 183 mg/dL (80-115) H 03/07/19 16:00 Calcium 8.6 mg/dL (7.8-10.44) 03/07/19 16:00 Total Bilirubin 0.3 mg/dL (0.2-1.2) 03/07/19 16:00 AST 19 U/L (5-34) 03/07/19 16:00 ALT 15 U/L (8-55) 03/07/19 16:00 Alkaline Phosphatase 166 U/L (40-110) H 03/07/19 16:00 B-Natriuretic Peptide 577.6 pg/mL (0-100) H 03/07/19 16:00 Serum Total Protein 6.9 g/dL (5.8-8.1) 03/07/19 16:00 Albumin 3.2 g/dL (3.4-4.8) L 03/07/19 16:00 Lipase 22 U/L (8-78) 03/07/19 16:00 - Radiology Interpretation Chest x-ray Status: report reviewed by me (bilateral pleural effusions) FMR H&P: A/P - Problem List (1) Acute exacerbation of CHF (congestive heart failure) Current Visit: No Status: Acute Code(s): I50.9 - HEART FAILURE, UNSPECIFIED (2) Acute on chronic renal failure Current Visit: No Status: Acute Code(s): N17.9 - ACUTE KIDNEY FAILURE, UNSPECIFIED; N18.9 - CHRONIC KIDNEY DISEASE, UNSPECIFIED (3) Elevated troponin Current Visit: No Status: Acute Code(s): R74.8 - ABNORMAL LEVELS OF OTHER SERUM ENZYMES (4) Pleural effusion, bilateral Current Visit: No Status: Acute Code(s): J90 - PLEURAL EFFUSION, NOT ELSEWHERE CLASSIFIED (5) CAD (coronary artery disease) Current Visit: No Status: Chronic Code(s): I25.10 - ATHSCL HEART DISEASE OF [place] CORONARY ARTERY W/O ANG PCTRS Comment: stent since bipass, stress test without evidence acute ischemia (6) CKD (chronic kidney disease) stage 3, GFR 30-59 ml/min Current Visit: No Status: Chronic Code(s): N18.3 - CHRONIC KIDNEY DISEASE, STAGE 3 (MODERATE) Comment: stable (7) Cannabis abuse Current Visit: No Status: Chronic Code(s): F12.10 - CANNABIS ABUSE, UNCOMPLICATED (8) Chronic combined systolic (congestive) and diastolic (congestive) heart failure Current Visit: No Status: Chronic Code(s): I50.42 - CHRONIC COMBINED SYSTOLIC AND DIASTOLIC HRT FAIL (9) DM2 (diabetes mellitus, type 2) Current Visit: No Status: Chronic Comment: (10) HLD (hyperlipidemia) Current Visit: No Status: Chronic Code(s): E78.5 - HYPERLIPIDEMIA, UNSPECIFIED Qualifiers: (11) HTN (hypertension) Current Visit: No Status: Chronic Code(s): I10 - ESSENTIAL (PRIMARY) HYPERTENSION (12) S/P AKA (above knee amputation) bilateral Current Visit: No Status: Chronic Code(s): Z89.611 - ACQUIRED ABSENCE OF RIGHT LEG ABOVE KNEE; Z89.612 - ACQUIRED ABSENCE OF LEFT LEG ABOVE KNEE (13) Tobacco abuse Current Visit: No Status: Chronic Code(s): Z72.0 - TOBACCO USE - Plan Patient is a 63M with a PMHx of HTN, CHF, COPD, bilateral AKA from diabetic neuropathy, DM2 that is admitted for acute on chronic CHF exacerbation 1. Acute on chronic CHF exacerbation, Preserved EF - Echo 11/2018 55-50% - lasix IV 40 mg BID - resume home heart failure meds. - CXR bilateral pleural effusions. - POC sono in ED: bilateral pleural effusions - given 40 IV lasix and ASA in ED. - D-dimer 3.91, Trop 0.086, BNP 577. - Placed on BIPAP and transferred to IMCU - ABG: CO2 35, O2 68.4, pH 7.38 on NC 3 L - recent hx of met, crack and cocaine all smoked. UDS pending. - recent hx on increased etoh intake. - continue BIPAP and try weaning once work of breathing improves - consider thoracentesis if diuresis unsuccessful 2. WILLIS on CKD - continue diuresis - trend Cr - Cr 3.66 3. Elevated Troponin - Trop 0.086 - trend. likely due to kidney injury not clearing and fluid overload. 4. Hx of COPD - continue symbicort inhaler - duonebs Q4H - continues to smoke tobacco. 5. Hx of HTN - Q4H vitals - continue home medications 6. DM II, with bilateral AKA due to neuropathy. - continue home medications - SII mild - Pt unsure of medications 7. Hx of tobacco abuse - counseling for cessation 8. Hx of previous and current drug abuse - admits to meth, cocaine and crack - UDS pending Code status: full code Diet: HH, fluid restriction <1500 ml daily DVT ppx: heparin Dispo: stale, admit to IMCU for CHF exacerbation and diuresis. FMR H&P: Upper Level - Pertinent history 63 yo M here with complaint of SOB. Associated symptoms include cough and inability to lay flat due to SOB. He states that this feels like the last time his lungs filled up with fluid. He has been taking his meds, but notes a recent significant increase in oral liquids. In the ER CXR noted pulmonary edema and b/l effusions R>L. O2 sat was 98% on RA and blood gas was generally WNL, however due to significant increase work of breathing and expected course pt was started on BiPAP by ERMD. PMHx: CAD s/p CABG 2009, DM type 2, COPD, HTN, HLD, Afib on anticoagulation PSHx: CABG, AKA b/l, hemicolectomy for adenocarcinoma FHx: No family hx of heart disease Social: current smoker, smoked for decades, drinks occasionally, marijuana use - Pertinent findings See advisory internship note for full ROS, PE, vitals, and labs ROS Gen denies fever or chills CV Complains of substernal CP. Denies palpitations. Resp complains of SOB and cough GI denies n/v/d/c Neuro denies weakness or numbness PE General A&O x4, on BiPAP HEENT NCAT CV Tachycardic, no murmur Resp Rales in base of L lung, no breath sounds in R base Abd non tender, no distension, normal BS Extremities no edema s/p b/l AKA - Plan Date/Time: 03/07/191651 Mikey Ayala DO, have evaluated this patient and agree with findings/plan as outlined by advisory internship resident. Pertinent changes/additions are listed here. 1.Acute CHF exacerbation -Admit to IMCU - Continue BiPAP and diurese with Lasix. Wean BiPAP as tolerated. -Strict I/O -Fluid restriction to 2500 mL per day 2.WILLIS on CKD -Most likely cardiorenal, monitor with AM labs -Baseline GFR is in the 30s - 3.NSTEMI type 2 -Secondary to CHF exacerbation. -Trend trops 4.Multi drug abuse -UDS pending 5.Pleural effusion -Will continue to watch, may resolve with diuresis. If no resolution, may need thoracentesis See advisory internship portion for management of chronic illness PPx Heparin Diet Regular Code Full Addendum - Attending - Attending Attestation Date/Time: 03/07/192103 I personally evaluated the patient and discussed the management with the team. I agree with the History, Examination, Assessment and Plan documented above with any addition or exceptions noted below. Patient tachypneic but doing well on BiPAP. Alert, speaking in half- to full sentences. On POCUS has bilateral mild-mod pleural effusions. R>L. Will repeat 40 mg IV lasix as no good output yet. We discussed possibility of dialysis if his kidneys worsen.
[2019-03-07 17:25] LABS: Acetaminophen Less than 6.0 mcg/mL (10.0-30.0); Alcohol Less than 10 mg/dL (Less than 10); Salicylate Less than 8.0 mg/dL (15.0-30.0)
[2019-03-07] MEDS ORDERED: Furosemide 40 MG/4 ML VIAL SLOW IVP SCH (17:30)
[2019-03-07] MEDS ORDERED: HumaLOG 300 UNITS/3 ML VIAL SC PRN ×2 (17:47)
[2019-03-07] MEDS ORDERED: Dextrose 50% Abboject 50 ML SYRINGE SLOW IVP PRN (17:47)
[2019-03-07] MEDS ORDERED: Dextrose 5% in Water 1,000 ML IV PRN (17:47)
[2019-03-07 17:57] LABS: Bacteria/HPF None Seen HPF (None Seen); Bilirubin Negative (Negative); Blood, Urine Trace (Negative); Clarity Turbid (Clear); Glucose, Urine (Dipstick) 70 mg/dL (Negative); Leukocyte 250 Leu/uL (Negative); Nitrite Negative (Negative); Protein, Urine (Dipstick) 600 mg/dL (Neg-Trace); RBC/HPF 0-3 HPF (0-3); Squamous Epithelial 0-3 HPF (0-3)
[2019-03-07 18:00] LABS: Amphetamine Detected (NotDetected); Barbiturates Screen Not Detected (NotDetected); Benzodiazepine Screen Not Detected (NotDetected); Cocaine Metabolite Screen Detected (NotDetected); Medtox Control Line Valid? VALID (VALID); Medtox Reader # READER 4; Methadone Not Detected (NotDetected); Methamphetamine Detected (NotDetected); Opiate Screen Not Detected (NotDetected); Oxycodone Screen Not Detected (NotDetected); Phencyclidine (PCP) Not Detected (NotDetected); THC/Cannabinoid Screen Detected (NotDetected); Tricyclic Screen Not Detected (NotDetected)
[2019-03-07] MEDS ORDERED: Acetaminophen 325 MG TAB PO PRN (19:01)
[2019-03-07] MEDS ORDERED: Ondansetron ODT 4 MG TAB PO PRN (19:01)
[2019-03-07 19:49] LABS: Troponin I 0.078 ng/mL (< 0.028)
[2019-03-07 23:27] VITALS: BMI 57.9
[2019-03-07] MEDS: Mometasone/Formoterol 120 PUFF INHALER INH SCH (23:36)
[2019-03-07 23:38] LABS: Troponin I 0.072 ng/mL (< 0.028)
[2019-03-07] MEDS: Pregabalin 50 MG CAP PO SCH (23:51)
[2019-03-07] MEDS: Amitriptyline HCl 25 MG TAB PO SCH (23:51)
[2019-03-07] MEDS: Nicotine 14 MG PATCH TD SCH (23:52)
[2019-03-07] MEDS: Heparin 5,000 UNITS/ML VIAL SC SCH (23:52)
[2019-03-07] MEDS: Rosuvastatin 10 MG TAB PO SCH (23:56)
[2019-03-07] MEDS: Famotidine 20 MG TAB PO SCH (23:57)
[2019-03-08 04:52] LABS: #Basophils 0.1 thou/uL (0.0-0.2); #Eosinphils 0.3 thou/uL (0.0-0.7); #Lymphocytes 2.4 thou/uL (1.20-3.40); %Basophils 0.8 % (0.0-1.0); %Eosinophils 2.8 % (0.0-10.0); %Lymphocytes 24.9 % (21.0-51.0); %Monocytes 10.2 % (0.0-10.0); %Neutrophils 61.4 % (42.0-75.0); Hemoglobin 14.6 g/dL (14.0-18.0); Mean Corpuscular HGB CONC 32.2 g/dL (32.0-36.0); Mean Corpuscular Hemoglobin 28.9 pg (27.0-31.0); Mean Corpuscular Volume 89.7 fL (78.0-98.0); Mean Platelet Volume 10.4 fL (7.4-10.4); Platelet Count 175 thou/uL (130-400); RBC Distribution Width 12.8 % (11.5-14.5); Red Blood Cell (RBC) Count 5.04 mill/uL (4.70-6.10); White Blood Cell (WBC) Count 9.7 thou/uL (4.8-10.8)
[2019-03-08 05:16] LABS: ALT (SGPT) 15 U/L (8-55); AST (SGOT) 21 U/L (5-34); Albumin 3.1 g/dL (3.4-4.8); Alkaline Phosphatase 146 U/L (40-110); Anion Gap 11 mmol/L (10-20); BUN (Urea Nitrogen) 38 mg/dL (8.4-25.7); Bilirubin, Total 0.3 mg/dL (0.2-1.2); Calc. Creatinine Clearance 22 mL/min (70-130); Calcium 8.5 mg/dL (7.8-10.44); Carbon Dioxide 21 mmol/L (23-31); Chloride 108 mmol/L (98-107); Estimated GFR-MDRD 24; Globulin 3.6 g/dL (2.4-3.5); Glucose 119 mg/dL (80-115); Potassium 4.3 mmol/L (3.5-5.1); Protein, Total 6.7 g/dL (5.8-8.1); Sodium 136 mmol/L (136-145)
[2019-03-08] MEDS ORDERED: Furosemide 40 MG/4 ML VIAL SLOW IVP SCH (06:00)
--- NOTE | 2019-03-08 06:22 | PDOC.FM ---
- Subjective Subjective: pt resting comfortably in bed, denies CP or SOB - Objective Vital Signs & Weight: Vital Signs (12 hours) Temp Pulse Ox 03/08/19 04:00 97.8 F 03/08/19 00:00 97.8 F 96 03/07/19 23:25 97.6 F Weight Weight 66 kg Most Recent Monitor Data Heart Rate from ECG 93 NIBP 167/87 NIBP BP-Mean 113 Respiration from ECG 21 SpO2 97 I&O: 03/06/19 03/07/19 03/08/19 06:59 06:59 06:59 Intake Total 300 Output Total 250 Balance 50 Result Diagrams: 03/08/19 04:32 03/08/19 04:32 Phys Exam - Physical Examination Constitutional: NAD HEENT: moist MMs Neck: no JVD Respiratory: clear to auscultation bilateral Cardiovascular: no significant murmur Gastrointestinal: non-tender Musculoskeletal: pulses present Skin: no rash Dx/Plan (1) Acute exacerbation of CHF (congestive heart failure) Code(s): I50.9 - HEART FAILURE, UNSPECIFIED Status: Acute (2) Acute on chronic renal failure Code(s): N17.9 - ACUTE KIDNEY FAILURE, UNSPECIFIED; N18.9 - CHRONIC KIDNEY DISEASE, UNSPECIFIED Status: Acute (3) Elevated LFTs Code(s): R94.5 - ABNORMAL RESULTS OF LIVER FUNCTION STUDIES Status: Acute (4) Elevated troponin Code(s): R74.8 - ABNORMAL LEVELS OF OTHER SERUM ENZYMES Status: Acute (5) Hyperglycemia due to type 2 diabetes mellitus Code(s): E11.65 - TYPE 2 DIABETES MELLITUS WITH HYPERGLYCEMIA Status: Acute (6) Atrial fibrillation Code(s): I48.91 - UNSPECIFIED ATRIAL FIBRILLATION Status: Chronic Qualifiers: (7) CAD (coronary artery disease) Code(s): I25.10 - ATHSCL HEART DISEASE OF [place] CORONARY ARTERY W/O ANG PCTRS Status: Chronic (8) HLD (hyperlipidemia) Code(s): E78.5 - HYPERLIPIDEMIA, UNSPECIFIED Status: Chronic Qualifiers: (9) HTN (hypertension) Code(s): I10 - ESSENTIAL (PRIMARY) HYPERTENSION Status: Chronic (10) Tobacco abuse Code(s): Z72.0 - TOBACCO USE Status: Chronic - Plan Plan: Acute CHF exacerbation - HFpEF on recent echo in november - diurese with Lasix. stable on ra -Strict I/O -Fluid restriction to 2500 mL per day WILLIS on CKD -Most likely cardiorenal, monitor with AM labs -Baseline GFR is in the 30s NSTEMI type 2 -Secondary to CHF exacerbation. -trops downtrended Multi drug abuse -UDS + Pleural effusion -Will continue to watch, may resolve with diuresis. If no resolution, may need thoracentesis PPx Heparin Code Full dispo: stable for txfr to tele
[2019-03-08] MEDS: Mometasone/Formoterol 120 PUFF INHALER INH SCH ×2 (07:24→20:32)
[2019-03-08] MEDS ORDERED: Carvedilol 6.25 MG TAB PO SCH (08:00)
[2019-03-08] MEDS: Pregabalin 50 MG CAP PO SCH ×2 (08:22→20:32)
[2019-03-08] MEDS: Ferrous Sulfate 325 MG TAB PO SCH (08:23)
[2019-03-08] MEDS: Amiodarone 200 MG TAB PO SCH (08:23)
[2019-03-08] MEDS: Heparin 5,000 UNITS/ML VIAL SC SCH ×3 (08:23→20:33)
[2019-03-08] MEDS: Diltiazem HCl CD 300 mg Capsule PO SCH (09:41)
--- NOTE | 2019-03-08 11:17 | PRG ---
DATE OF SERVICE: 03/08/2019 I have examined the patient. I have discussed the case with Dr. Chaitanya Steele and agree with his assessment and plan. Job ID: [id number]
[2019-03-08] MEDS: Amitriptyline HCl 25 MG TAB PO SCH (20:33)
[2019-03-08] MEDS: Nicotine 14 MG PATCH TD SCH (20:33)
[2019-03-08] MEDS: Rosuvastatin 10 MG TAB PO SCH (20:33)
[2019-03-08] MEDS: Famotidine 20 MG TAB PO SCH (20:38)
[2019-03-09 03:50] LABS: #Basophils 0.1 thou/uL (0.0-0.2); #Eosinphils 0.3 thou/uL (0.0-0.7); #Lymphocytes 2.2 thou/uL (1.20-3.40); #Monocytes 1.1 thou/uL (0.11-0.59); #Neutrophils 6.7 thou/uL (1.40-6.50); %Basophils 0.8 % (0.0-1.0); %Eosinophils 3.3 % (0.0-10.0); %Lymphocytes 21.5 % (21.0-51.0); %Monocytes 10.4 % (0.0-10.0); Hemoglobin 14.2 g/dL (14.0-18.0); Mean Corpuscular HGB CONC 32.5 g/dL (32.0-36.0); Mean Corpuscular Hemoglobin 29.4 pg (27.0-31.0); Mean Corpuscular Volume 90.2 fL (78.0-98.0); Mean Platelet Volume 9.9 fL (7.4-10.4); Platelet Count 176 thou/uL (130-400); RBC Distribution Width 12.9 % (11.5-14.5); Red Blood Cell (RBC) Count 4.83 mill/uL (4.70-6.10); White Blood Cell (WBC) Count 10.4 thou/uL (4.8-10.8)
[2019-03-09 04:13] LABS: ALT (SGPT) 14 U/L (8-55); AST (SGOT) 17 U/L (5-34); Albumin 2.8 g/dL (3.4-4.8); Alkaline Phosphatase 142 U/L (40-110); Anion Gap 12 mmol/L (10-20); BUN (Urea Nitrogen) 39 mg/dL (8.4-25.7); Bilirubin, Total 0.3 mg/dL (0.2-1.2); Calc. Creatinine Clearance 23 mL/min (70-130); Carbon Dioxide 20 mmol/L (23-31); Chloride 107 mmol/L (98-107); Estimated GFR-MDRD 25; Globulin 3.4 g/dL (2.4-3.5); Glucose 145 mg/dL (80-115); Potassium 3.9 mmol/L (3.5-5.1); Protein, Total 6.2 g/dL (5.8-8.1); Sodium 135 mmol/L (136-145)
--- NOTE | 2019-03-09 06:30 | PDOC.FM ---
- Subjective Subjective: pt resting comfortably in bed, denies SOB or chest pain - Objective Vital Signs & Weight: Vital Signs (12 hours) Temp Pulse Resp Pulse Ox 03/09/19 03:46 98.0 F 03/09/19 00:00 97.8 F 03/08/19 20:32 102 H 16 96 03/08/19 19:38 94 L 03/08/19 19:31 98.1 F Weight Weight 66 kg Most Recent Monitor Data Heart Rate from ECG 90 NIBP 137/97 NIBP BP-Mean 110 Respiration from ECG 21 SpO2 99 I&O: 03/07/19 03/08/19 03/09/19 06:59 06:59 06:59 Intake Total 300 1800 Output Total 250 2200 Balance 50 -400 Result Diagrams: 03/09/19 03:38 03/09/19 03:38 Phys Exam - Physical Examination Constitutional: NAD HEENT: moist MMs Neck: no JVD Respiratory: clear to auscultation bilateral Cardiovascular: no significant murmur Gastrointestinal: no distention Neurological: non-focal Psychiatric: normal affect Skin: no rash Dx/Plan (1) Acute exacerbation of CHF (congestive heart failure) Code(s): I50.9 - HEART FAILURE, UNSPECIFIED Status: Acute (2) Acute on chronic renal failure Code(s): N17.9 - ACUTE KIDNEY FAILURE, UNSPECIFIED; N18.9 - CHRONIC KIDNEY DISEASE, UNSPECIFIED Status: Acute (3) Elevated LFTs Code(s): R94.5 - ABNORMAL RESULTS OF LIVER FUNCTION STUDIES Status: Acute (4) Elevated troponin Code(s): R74.8 - ABNORMAL LEVELS OF OTHER SERUM ENZYMES Status: Acute (5) Hyperglycemia due to type 2 diabetes mellitus Code(s): E11.65 - TYPE 2 DIABETES MELLITUS WITH HYPERGLYCEMIA Status: Acute (6) Atrial fibrillation Code(s): I48.91 - UNSPECIFIED ATRIAL FIBRILLATION Status: Chronic Qualifiers: (7) CAD (coronary artery disease) Code(s): I25.10 - ATHSCL HEART DISEASE OF [place] CORONARY ARTERY W/O ANG PCTRS Status: Chronic (8) HLD (hyperlipidemia) Code(s): E78.5 - HYPERLIPIDEMIA, UNSPECIFIED Status: Chronic Qualifiers: (9) HTN (hypertension) Code(s): I10 - ESSENTIAL (PRIMARY) HYPERTENSION Status: Chronic (10) Tobacco abuse Code(s): Z72.0 - TOBACCO USE Status: Chronic - Plan Plan: Acute CHF exacerbation - HFpEF on recent echo in november - diurese with Lasix. stable on ra -Strict I/O -Fluid restriction to 2500 mL per day WILLIS on CKD -Most likely cardiorenal, monitor with AM labs -Baseline GFR is in the 30s NSTEMI type 2 -Secondary to CHF exacerbation. -trops downtrended Multi drug abuse -UDS + Pleural effusion -Will continue to watch, may resolve with diuresis. - repeat cxr today shows effusion improved, fu outpt PPx Heparin Code Full dispo: possible dc later today with continued improvement
[2019-03-09] MEDS: Mometasone/Formoterol 120 PUFF INHALER INH SCH (07:04)
--- NOTE | 2019-03-09 07:39 | RAD ---
XR Chest 1 View Portable HISTORY: Pleural effusion COMPARISON: 03/07/2019 FINDINGS: The heart size is stable. Changes of median sternotomy are again seen. There are bilateral pleural effusions with adjacent atelectatic changes. No pneumothoraces are seen. There is prominence of the pulmonary vascularity. IMPRESSION: Stable exam.
[2019-03-09] MEDS: Ferrous Sulfate 325 MG TAB PO SCH (08:24)
[2019-03-09] MEDS: Diltiazem HCl CD 300 mg Capsule PO SCH (08:24)
[2019-03-09] MEDS: Amiodarone 200 MG TAB PO SCH (08:24)
[2019-03-09] MEDS: Pregabalin 50 MG CAP PO SCH (08:25)
[2019-03-09] MEDS: Heparin 5,000 UNITS/ML VIAL SC SCH (08:27)
[2019-03-09 08:28] VITALS: BP 184/105
[2019-03-09] MEDS ORDERED: Furosemide 40 MG TAB PO SCH (09:00)
--- NOTE | 2019-03-09 10:44 | PRG ---
DATE OF SERVICE: 03/09/2019 I have examined the patient. I have discussed the case with Dr. Chaitanya Steele, I agree with his assessment and plan. Job ID: [id number]
[2019-03-09 11:12] VITALS: TEMP 97.4
== END 2019-03-09 14:30 | disposition home or self-care (01) | DRG 280 ==
LOC: ERS 15:26 → ERHOLD 17:08 → IMCU/EMU 23:25
PROVIDERS: ADMIT Emergency Medicine; ATTEND Emergency Medicine
DX: I13.0 Hypertensive heart and chronic kidney disease with heart failure and stage 1 through stage 4 chronic kidney disease, or unspecified chronic kidney disease (principal); I21.A1 Myocardial infarction type 2; I50.33 Acute on chronic diastolic (congestive) heart failure; N17.9 Acute kidney failure, unspecified; J44.9 Chronic obstructive pulmonary disease, unspecified; Z89.612 Acquired absence of left leg above knee; Z89.611 Acquired absence of right leg above knee; E11.40 Type 2 diabetes mellitus with diabetic neuropathy, unspecified; Z79.899 Other long term (current) drug therapy; Z95.1 Presence of aortocoronary bypass graft; I25.10 Atherosclerotic heart disease of native coronary artery without angina pectoris; F17.210 Nicotine dependence, cigarettes, uncomplicated; E11.22 Type 2 diabetes mellitus with diabetic chronic kidney disease; N18.3 Chronic kidney disease, stage 3 (moderate); F12.10 Cannabis abuse, uncomplicated; E87.5 Hyperkalemia; E11.65 Type 2 diabetes mellitus with hyperglycemia
CPT/HCPCS: 36415; 36416; 71045; 80053; 80306; 80307; 81003; 81015; 82553; 82805; 83605; 83690; 83880; 84484; 85025; 85379; 87040; 87804; 93005; 94660; 94760; J1644; J1940

== ENCOUNTER 2019-04-18 10:05 | Inpatient (IN) | payer OTHER ==
[2019-04-18] MEDS ORDERED: Rocuronium Bromide 10 MG/ML (10ML VIAL) ONE (10:27)
[2019-04-18] MEDS ORDERED: Ketamine 50 MG/ML (10ML VIAL) ONE (10:27)
[2019-04-18] MEDS ORDERED: Norepinephrine 8 MG/0.9% NS 250 ML ONE (10:39)
[2019-04-18] MEDS ORDERED: Ondansetron PF 4 MG/2 ML Vial ONE (10:39)
[2019-04-18 10:52] LABS: Hemoglobin 17.6 g/dL (14.0-18.0); Mean Corpuscular HGB CONC 31.4 g/dL (32.0-36.0); Mean Corpuscular Hemoglobin 29.6 pg (27.0-31.0); Mean Corpuscular Volume 94.4 fL (78.0-98.0); RBC Distribution Width 13.4 % (11.5-14.5); Red Blood Cell (RBC) Count 5.93 mill/uL (4.70-6.10); White Blood Cell (WBC) Count 13.3 thou/uL (4.8-10.8)
[2019-04-18 10:53] LABS: #Basophils 0.1 thou/uL (0.0-0.2); #Eosinphils 0.1 thou/uL (0.0-0.7); #Lymphocytes 2.5 thou/uL (1.20-3.40); #Monocytes 0.9 thou/uL (0.11-0.59); #Neutrophils 9.6 thou/uL (1.40-6.50); %Basophils 0.8 % (0.0-1.0); %Eosinophils 0.9 % (0.0-10.0); %Monocytes 6.8 % (0.0-10.0); %Neutrophils 72.5 % (42.0-75.0)
[2019-04-18 10:55] LABS: ALT (SGPT) 26 U/L (8-55); AST (SGOT) 39 U/L (5-34); Albumin 3.3 g/dL (3.4-4.8); Alkaline Phosphatase 153 U/L (40-110); Anion Gap 20 mmol/L (10-20); BUN (Urea Nitrogen) 38 mg/dL (8.4-25.7); Bilirubin, Total 0.5 mg/dL (0.2-1.2); CK (CPK) 73 U/L (30-200); Calc. Creatinine Clearance 0 mL/min (70-130); Calcium 11.7 mg/dL (7.8-10.44); Carbon Dioxide 16 mmol/L (23-31); Chloride 103 mmol/L (98-107); Estimated GFR-MDRD 15; Globulin 3.6 g/dL (2.4-3.5); Glucose 438 mg/dL (80-115); Protein, Total 6.9 g/dL (5.8-8.1); Sodium 131 mmol/L (136-145)
[2019-04-18] MEDS ORDERED: fentaNYL Citrate/PF 2,000 MCG in Sodium Chloride 0.9% 60 ML IV SCH (10:57)
[2019-04-18 11:01] LABS: Large Platelets SLIGHT; MDiff Complete? YES; Mean Platelet Volume 11.2 fL (7.4-10.4); Platelet Count 123 thou/uL (130-400); Platelet Morphology Comment Appears Decreased; RBC Morphology Normal
[2019-04-18 11:03] LABS: Potassium 7.6 mmol/L (3.5-5.1)
[2019-04-18] MEDS ORDERED: Insulin Regular 300 UNITS/3 ML VIAL ONE (11:03)
[2019-04-18] MEDS ORDERED: Fentanyl 100 MCG/2 ML VIAL ONE (11:11)
[2019-04-18 11:27] LABS: Actual Bicarbonate (HCO3a) 11.7 mEq/L (22-28); Analyzer IN Cardio ER; Base Excess (BEa) -16.1 mEq/L (-2.0 to +3.0); CO2 Tension 34.3 mmHg (35.0-45.0); Calcium, Ionized 1.26 mmol/L (1.12-1.30); Carboxyhemoglobin (COHb) 0.8 gm% (0.0-3.0); Hemoglobin (Hb) 14.5 g/dL (14.0-18.0); O2 Tension (PaO2) 84.6 mmHg (> 80.0); Potassium - ABG Lab 6.28 mmol/L (3.70-5.30)
[2019-04-18 11:29] LABS: pH, Arterial 7.15 (7.35-7.45)
[2019-04-18 11:30] LABS: ALV-art Gradient 300.325 (0-20); Puncture Site LRA
[2019-04-18] MEDS ORDERED: Cefepime 2 GM VIAL ONE (11:59)
--- NOTE | 2019-04-18 12:05 | RAD ---
PORTABLE SUPINE CHEST: History: Post intubation. Comparison: Film from 5:20 a.m. FINDINGS: ET tube, NG tube are in place and appear adequately positioned. Tip of ET above albert. Post op weaver otomy change. Mild cardiomegaly. Bilateral effusions. Mid and upper lung zones appear clear. Vasculature is upper normal. POS: [facility]
[2019-04-18] MEDS ORDERED: HUMULIN R 100 UNITS in Sodium Chloride 0.9% 100 ML IVPB SCH ×2 (12:15→14:08)
[2019-04-18] MEDS ORDERED: Atropine Sulfate 1 mg/10 ml Syringe ONE (12:21)
[2019-04-18] MEDS ORDERED: Calcium Chloride 1 GM/10 ML Abboject SYRINGE ONE (12:21)
[2019-04-18] MEDS ORDERED: EPINEPHrine 1 MG/10 ML Abboject SYRINGE ONE (12:21)
[2019-04-18 12:27] LABS: Bacteria/HPF 4+ HPF (None Seen); Bilirubin Negative (Negative); Blood, Urine Negative (Negative); Clarity Turbid (Clear); Glucose, Urine (Dipstick) 30 mg/dL (Negative); Leukocyte 250 Leu/uL (Negative); Nitrite Negative (Negative); Protein, Urine (Dipstick) 200 mg/dL (Neg-Trace); RBC/HPF 0-3 HPF (0-3); Squamous Epithelial 0-3 HPF (0-3); Urobilinogen Normal mg/dL (Less than 2)
--- NOTE | 2019-04-18 12:48 | CT ---
CT Brain WO Con: 04/18/2019 11:24 AM CLINICAL HISTORY: Altered mental status and weakness. IMAGING TECHNIQUE: Multiple CT images were obtained of the brain without IV contrast. COMPARISON: April 18, 2018 FINDINGS: Brain: The moderate chronic small vessel white matter ischemic change is stable. No acute infarct, h emorrhage or midline shift is present. Ventricles: Normal. No hydrocephalus. Skull: Intact. Visualized Paranasal sinuses: Clear. Mastoid air cells:Clear. Extracranial soft tissues:Small scalp calcifications are stable appearing. Calcification seen along t he falx and tentorium are stable appearing. IMPRESSION: No acute intracranial abnormality.
[2019-04-18] MEDS ORDERED: Aspirin 300 MG Suppository ONE (13:19)
[2019-04-18 14:06] LABS: Troponin I 0.062 ng/mL (< 0.028)
[2019-04-18] MEDS ORDERED: Dextrose 5 %-0.45 % NaCl 1,000 ML IV PRN (14:08)
[2019-04-18] MEDS ORDERED: D5 1/2 NS w/20 mEq KCL 1,000 ML IV PRN (14:08)
[2019-04-18] MEDS ORDERED: Sodium Chloride 0.9% 1,000 ML IV PRN ×4 (14:08)
[2019-04-18] MEDS ORDERED: Ondansetron PF 4 MG/2 ML Vial IVP PRN (14:08)
[2019-04-18] MEDS ORDERED: NS 0.9% w/ 20 MEQ KCL 1,000 ML IV PRN ×2 (14:08)
--- NOTE | 2019-04-18 14:39 | HP ---
PRIMARY CARE PHYSICIAN: Unknown. CHIEF COMPLAINT: Altered mental status. HISTORY OF PRESENT ILLNESS: The history of present illness is taken from the ER records as the patient is currently intubated and cannot give me any history. The patient currently does not have any family or friends at the bedside. However, it is known that the patient has diabetes mellitus and apparently, he was last seen last night and told the family that he was feeling "funny." They said that he ate 2 pounds of grapes last night and apparently, the patient called and seemed confused. They said that he looked altered and lethargic, so they brought him to the emergency room. In the ER, he was found to be hypothermic. His blood sugar was elevated and shortly after being in the emergency room, he was found to be severely bradycardic and became unresponsive. ACLS was started. There was concern that he could be hyperkalemic and he was given IV calcium due to the bradycardia. He was given epinephrine as transcutaneous pacers were placed. A central line was placed and he was also found to be hypotensive and placed on Levophed. He was started on empiric IV antibiotics and is being admitted for DKA, sepsis, and acute kidney injury. REVIEW OF SYSTEMS: Unobtainable. The patient is intubated. PAST MEDICAL HISTORY: Taken from a previous history and physical by Dr. Elisabeth Galvan and includes hypertension, congestive heart failure, COPD, bilateral AKA, and diabetes mellitus. PAST SURGICAL HISTORY: He has had bilateral AKA. He has had four-vessel CABG, partial colectomy. FAMILY HISTORY: Listed as diabetes. SOCIAL HISTORY: It is stated he had a history of cigarette smoking, some substance abuse and alcohol during the holidays. CURRENT MEDICATIONS: Unknown. ALLERGIES: UNKNOWN. PHYSICAL EXAMINATION: GENERAL: He is intubated and currently unresponsive. HEENT: Pupils are minimally reactive. NECK: No adenopathy. No bruits. LUNGS: Clear. No wheezing. No rales. CARDIOVASCULAR: He has a regular rate and rhythm. He does have transcutaneous pacer. There are no murmurs, clicks, or rubs. ABDOMEN: Soft and positive for bowel sounds. EXTREMITIES: There is no skin breakdown. No visible edema. LABORATORY RESULTS: White blood cell count is 13.3, hemoglobin 17.6, hematocrit is 55.9, and platelet count is 123. ABG; the pH is 7.15, CO2 is 34, and O2 is 84. Sodium 131, potassium 7.6, chloride is 103, CO2 is 16, BUN of 38, creatinine 4.89, and glucose is 439. IMAGING DATA: The patient had a CT scan of the brain showing no acute intracranial abnormality and a chest x-ray showing bilateral effusions and mild cardiomegaly. ASSESSMENT AND PLAN: This is a pleasant 63-year-old gentleman, who was admitted with diabetic ketoacidosis, altered mental status, acute kidney injury, and possible sepsis. He will be admitted to the ICU, started on the diabetic ketoacidosis protocol. Empiric IV antibiotics. We will consult Pulmonary and critical Care. Trend his cardiac enzymes. He will need a Cardiology consult given the severe bradycardia. However, this is likely due to the hyperkalemia and hypothermia. Place him on a warming blanket and further recommendations to follow. The patient's condition is grave and is a palliative care/potential hospice patient if he survives. Job ID: [id number]
[2019-04-18 14:53] LABS: Lactic Acid 2.3 mmol/L (0.5-2.2)
[2019-04-18 15:13] LABS: Anion Gap 14 mmol/L (10-20); BUN (Urea Nitrogen) 38 mg/dL (8.4-25.7); Calc. Creatinine Clearance 0 mL/min (70-130); Calcium 8.1 mg/dL (7.8-10.44); Carbon Dioxide 13 mmol/L (23-31); Chloride 111 mmol/L (98-107); Estimated GFR-MDRD 17; Glucose 263 mg/dL (80-115); Potassium 5.8 mmol/L (3.5-5.1); Sodium 132 mmol/L (136-145)
[2019-04-18 15:45] VITALS: BMI 26.8
[2019-04-18 15:52] LABS: Actual Bicarbonate (HCO3a) 12.4 mEq/L (22-28); Base Excess (BEa) -9.7 mEq/L (-2.0 to +3.0); Calcium, Ionized 1.15 mmol/L (1.12-1.30); Carboxyhemoglobin (COHb) 0.5 gm% (0.0-3.0); Hemoglobin (Hb) 14.9 g/dL (14.0-18.0); O2 Tension (PaO2) 74.2 mmHg (> 80.0); Potassium - ABG Lab 4.84 mmol/L (3.70-5.30)
[2019-04-18] MEDS ORDERED: Sodium Bicarb 50 MEQ/50 ML VIAL ONE (16:02)
[2019-04-18 16:05] LABS: CO2 Tension 20.3 mmHg (35.0-45.0)
[2019-04-18 16:06] LABS: ALV-art Gradient 185.625 (0-20); Puncture Site LRA
[2019-04-18 17:01] LABS: Troponin I 0.086 ng/mL (< 0.028)
[2019-04-18] MEDS ORDERED: Morphine 2 MG/ML SYRINGE SLOW IVP PRN (18:02)
[2019-04-18] MEDS ORDERED: Fentanyl BOLUS 250 ML IVPB PRN (18:02)
[2019-04-18] MEDS ORDERED: DISCONTINUE PREVIOUS NARCOTIC PAIN MEDICATIONS AND BENZODIAZEPINES FS SCH (18:02)
[2019-04-18] MEDS ORDERED: Lorazepam 2 MG/ML VIAL SLOW IVP PRN (18:02)
[2019-04-18] MEDS ORDERED: Propofol BOLUS 1,000 MG/100 ML VIAL IV PRN (18:02)
[2019-04-18] MEDS ORDERED: niCARdipine 25 MG in Sodium Chloride 0.9% 250 ML 240 ML IVPB SCH (18:15)
[2019-04-18] MEDS: Sodium Chloride 0.9% 1,000 ML IV SCH (18:23)
[2019-04-18 18:59] LABS: Anion Gap 16 mmol/L (10-20); BUN (Urea Nitrogen) 37 mg/dL (8.4-25.7); Calc. Creatinine Clearance 18 mL/min (70-130); Calcium 8.3 mg/dL (7.8-10.44); Carbon Dioxide 15 mmol/L (23-31); Chloride 108 mmol/L (98-107); Estimated GFR-MDRD 18; Glucose 288 mg/dL (80-115); Sodium 134 mmol/L (136-145)
[2019-04-18 19:02] LABS: Amphetamine Not Detected (NotDetected); Barbiturates Screen Not Detected (NotDetected); Benzodiazepine Screen Not Detected (NotDetected); Cocaine Metabolite Screen Not Detected (NotDetected); Medtox Control Line Valid? VALID (VALID); Medtox Reader # READER 4; Methadone Not Detected (NotDetected); Methamphetamine Not Detected (NotDetected); Opiate Screen Not Detected (NotDetected); Oxycodone Screen Not Detected (NotDetected); Phencyclidine (PCP) Not Detected (NotDetected); THC/Cannabinoid Screen Detected (NotDetected); Tricyclic Screen Not Detected (NotDetected)
--- NOTE | 2019-04-18 19:52 | CON ---
DATE OF CONSULTATION: 04/18/2019 REASON FOR CONSULTATION: Bradycardia. PRIMARY BUILDING SERVICE WORKER: Андрей Morales MD HISTORY OF PRESENT ILLNESS: Mr. Calderon is a 63-year-old gentleman, who comes to the hospital for altered mentation. Family noticed he was not making much sense. They brought him in. He was found to be hypothermic with temperature of 91. Blood sugar was in the 400s. He was severely bradycardic in the 20s, became unresponsive, had to be intubated, transcutaneously paced. Blood work at that time evidenced potassium of 7.1 and creatinine in the 4 range, so he was treated for hyperkalemia and admitted for possible DKA, sepsis and acute kidney injury. Cardiology has been consulted as his heart rate remains in the 20s. In my evaluation, he is transcutaneously paced actually adequately capturing. He has a pulse and a blood pressure in the 150s. I turned off the external pacer and he has an underlying rhythm. He has sinus bradycardia, heart rate in the 40s. Blood pressure is actually on the 170s off the pacer. Currently remains intubated and sedated and cannot provide any history. PAST MEDICAL HISTORY: 1. Hypertension. 2. History of ischemic cardiomyopathy. 3. COPD. 4. Bilateral AKAs. 5. Type 2 diabetes. 6. Coronary artery disease. 7. Peripheral vascular disease. 8. Diastolic heart failure. PAST SURGICAL HISTORY: 1. CABG in the past. 2. Stent placement while occluded bypass graft in [place]. 3. Drug-eluting stent to ramus here in the hospital. 4. Flutter ablation. 5. Aortobifemoral bypass. 6. Bilateral iliac stents. 7. Back surgery. 8. Bilateral [id number] amputation. OUTPATIENT MEDICATIONS: 1. Glipizide. 2. Guaifenesin. 3. Crestor 40 a day. 4. Lyrica. 5. Nicotine CQ. 6. DuoNeb. 7. Lasix 40 a day. 8. Iron sulfate. 9. Diltiazem 200 mg a day. 10. Carvedilol 6.25 b.i.d. 11. Symbicort. 12. Amitriptyline. 13. Amiodarone 200 mg a day. ALLERGIES: NO KNOWN DRUG ALLERGIES. SOCIAL HISTORY: Continues to smoke. Uses marijuana and codeine. FAMILY HISTORY: Positive for early coronary artery disease. REVIEW OF SYSTEMS: Unobtainable as the patient is sedated and intubated. PHYSICAL EXAMINATION: VITAL SIGNS: Temperature 91.9, heart rate at 50 now, blood pressure 195/95, respiratory rate 30, saturating 100% on 40% FiO2. Latest temperature was 94.1. GENERAL: Sedated and intubated. NECK: Supple. LUNGS: Coarse breath sounds anteriorly. CARDIOVASCULAR: S1 and S2. No S3 or S4. Bradycardic in the 40s to 50s. ABDOMEN: Soft. EXTREMITIES: Bilateral AKA. SKIN: Warm and dry. LABORATORY DATA: Laboratory work was reviewed. Potassium initially at 7.6 with a creatinine of 4.8 and BUN of 38, GFR 15. Troponin was 0.077, 0.062, and 0.086. Repeat potassium was 5.8 and creatinine was 4.27. Lactic acid at this time of 2.3. UA; 7 to 10 white cells, 4+ bacteria. ABG was reviewed, much better on second draw. Hematology with a white count of 13, hemoglobin of 17, platelet count of 123. EKG shows sinus bradycardia. ASSESSMENT AND PLAN: 1. Sinus bradycardia. 2. Hyperkalemia. 3. Acute kidney injury on chronic kidney disease. 4. Chronic kidney disease stage 4 to 5. 5. Coronary artery disease, stable for now. 6. Chronic troponin elevation, unchanged. PLAN: 1. Continue supportive care. 2. No indication for pacing at this time. His heart rate is picking up to the 40s to 50s as potassium is coming down and his blood pressure is maintaining quite well. 3. If he becomes more bradycardic, he may need emergent dialysis if his potassium still an issue and he may need temporary pacemaker not at this time. 4. No acute coronary syndrome at this time. Thank you for letting us to participate in the care of your patient. We will follow. 60 minutes critical care. Job ID: [id number]
[2019-04-18] MEDS ORDERED: Vancomycin HCl 1 GM in Premix Bag 1 BAG IVPB SCH (21:00)
[2019-04-18] MEDS: Famotidine/PF 20 mg/2ml Vial SLOW IVP SCH (21:04)
[2019-04-18] MEDS: Propofol 1,000 MG/100 ML VIAL IV PRN (22:21)
[2019-04-18 22:32] LABS: Anion Gap 14 mmol/L (10-20); BUN (Urea Nitrogen) 38 mg/dL (8.4-25.7); Calc. Creatinine Clearance 18 mL/min (70-130); Calcium 8.1 mg/dL (7.8-10.44); Carbon Dioxide 17 mmol/L (23-31); Chloride 109 mmol/L (98-107); Estimated GFR-MDRD 17; Glucose 214 mg/dL (80-115); Sodium 135 mmol/L (136-145)
--- NOTE | 2019-04-19 01:03 | CON ---
DATE OF CONSULTATION: 04/18/2019 HISTORY OF PRESENT ILLNESS: Prudencio Calderon is a 63-year-old male, who presented with altered mental status. He was found to be hypotensive, bradycardic, acidemic, and hyperkalemic as well as having elevated blood glucoses. He was externally paced and intubated in the emergency department. He is admitted to the critical care unit. PAST MEDICAL HISTORY: 1. Remarkable for hypertension. 2. History of cardiomyopathy. 3. History of COPD. 4. History of diabetes. 5. History of bilateral xhcot-ral-fttz amputations. 6. History of 4-vessel heart surgery. Coronary artery bypass grafting in the past. 7. History of partial colectomy. SOCIAL HISTORY: He has a long history of cocaine abuse. In this admission, he only has opiates on his drug screen. He has been a smoker in the past. FAMILY HISTORY: Positive for diabetes. Negative for lung disease in early age. REVIEW OF SYSTEMS: Not obtainable. PHYSICAL EXAMINATION: VITAL SIGNS: When he arrived from the emergency department, his temperature was 90 degrees, heart rate was paced. Initially, when his pacer was turned off, dropped to a heart rate of 20. With connection to mechanical ventilation in the ICU, hypoventilation and normalization of his pH in potassium, his heart rate was 50s , a junctional rhythm. He is actually hypertensive and has been started on a Cardene drip. Respiratory rate per mechanical ventilation is 30. HEENT: Does not have any corneals. He does not have any gag. Sclerae anicteric. NECK: Without lymphadenopathy. LUNGS: Remarkable for coarse equal breath sounds. HEART: Regular rhythm. S1 and S2 are normal. ABDOMEN: Soft. EXTREMITIES: His amputation sites are healed. LABORATORY DATA: He had 7 to 10 white cells on his peripheral smears, 0 to 3 red cells. Sodium 134, potassium 5, chloride 108, bicarb 15, BUN 37, creatinine 4.18, which is better than 4.27 this morning. White count 13.3, hemoglobin 17.6, platelets 123. IMPRESSION: 1. Severe intravascular volume depletion with hematocrit that is gone up basically 10 points since he was last here in March. 2. Possible coexistent sepsis. 3. Chronic kidney disease. 4. Bilateral lower extremity amputations. 5. Long history of drug abuse. 6. History of cardiomyopathy. At this point in time, he remains critically ill, but does not require pacing. I doubt his metabolic acidosis is secondary to diabetic ketoacidosis. It is much more likely that he is just vasodilated or intravascularly severely dry or both. It is appropriate to treat him with antimicrobial therapy, but I suspect his cultures will end up negative. There is nothing on his chest x-ray to explain this, and I doubt his mild pyuria explains his clinical presentation. We will follow the other physicians caring for him. TIME SPENT: 40-minute critical care time Job ID: [id number] SHARATH
[2019-04-19 05:20] LABS: #Basophils 0.1 thou/uL (0.0-0.2); #Lymphocytes 2.3 thou/uL (1.20-3.40); #Monocytes 0.9 thou/uL (0.11-0.59); #Neutrophils 11.6 thou/uL (1.40-6.50); %Basophils 0.5 % (0.0-1.0); %Eosinophils 0.2 % (0.0-10.0); %Lymphocytes 15.2 % (21.0-51.0); %Monocytes 6.1 % (0.0-10.0); Hemoglobin 13.4 g/dL (14.0-18.0); Mean Corpuscular HGB CONC 32.6 g/dL (32.0-36.0); Mean Corpuscular Hemoglobin 29.5 pg (27.0-31.0); Mean Corpuscular Volume 90.3 fL (78.0-98.0); Mean Platelet Volume 10.8 fL (7.4-10.4); Platelet Count 129 thou/uL (130-400); RBC Distribution Width 13.1 % (11.5-14.5); Red Blood Cell (RBC) Count 4.54 mill/uL (4.70-6.10); White Blood Cell (WBC) Count 14.9 thou/uL (4.8-10.8)
[2019-04-19 05:36] LABS: Anion Gap 14 mmol/L (10-20); BUN (Urea Nitrogen) 39 mg/dL (8.4-25.7); Calc. Creatinine Clearance 17 mL/min (70-130); Calcium 7.8 mg/dL (7.8-10.44); Carbon Dioxide 15 mmol/L (23-31); Chloride 112 mmol/L (98-107); Estimated GFR-MDRD 16; Glucose 88 mg/dL (80-115); Potassium 4.8 mmol/L (3.5-5.1); Sodium 136 mmol/L (136-145)
[2019-04-19] MEDS: Sodium Chloride 0.9% 1,000 ML IV SCH ×3 (05:39→17:43)
[2019-04-19 06:49] LABS: Vancomycin, Random 14.9 ug/mL (See Comment)
[2019-04-19 06:54] LABS: Actual Bicarbonate (HCO3a) 13.6 mEq/L (22-28); Calcium, Ionized 1.13 mmol/L (1.12-1.30); Carboxyhemoglobin (COHb) 1.1 gm% (0.0-3.0); Hemoglobin (Hb) 13.7 g/dL (14.0-18.0); O2 Tension (PaO2) 71.9 mmHg (> 80.0); Potassium - ABG Lab 4.37 mmol/L (3.70-5.30); pH, Arterial 7.49 (7.35-7.45)
[2019-04-19 06:56] LABS: ALV-art Gradient 190.675 (0-20); CO2 Tension 18.1 mmHg (35.0-45.0); Puncture Site RBA
[2019-04-19] MEDS ORDERED: Vancomycin HCl 250 MG in Sodium Chloride 0.9% 100 ML IVPB SCH (07:30)
[2019-04-19] MEDS ORDERED: HOLD VANCOMYCIN FOR LEVEL >20 FS SCH (07:30)
[2019-04-19] MEDS ORDERED: Vancomycin HCl 750 MG in Sodium Chloride 0.9% 250 ML 250 ML IVPB SCH ×2 (07:30→13:00)
[2019-04-19] MEDS ORDERED: Vancomycin HCl 500 MG in Sodium Chloride 0.9% 100 ML IVPB SCH ×2 (07:30→13:00)
[2019-04-19] MEDS ORDERED: Vancomycin Sliding Scale 1 EACH FS ONE (07:30)
[2019-04-19] MEDS ORDERED: Vancomycin HCl 1 GM in Premix Bag 1 BAG IVPB SCH (07:30)
[2019-04-19] MEDS: Cefepime 1 GM in Sodium Chloride 0.9% 100 ML IVPB SCH (11:27)
[2019-04-19] MEDS: Propofol 1,000 MG/100 ML VIAL IV PRN (16:53)
--- NOTE | 2019-04-19 17:38 | PRG ---
DATE OF SERVICE: 04/19/2019 OBJECTIVE: VITAL SIGNS: Mr. Calderon hemodynamically stabilized. Blood pressure 144/80, heart rate is in 80s, respiratory rates in the teens to low 20s. His eyes barely flicker with a deep sternal rub. He did not have a gag reflex. He did not have corneal reflexes. LUNGS: Remarkable for coarse equal breath sounds. HEART: Regular rhythm. ABDOMEN: Soft. EXTREMITIES: Without any change from yesterday. His amputation stumps are healed. He is no longer paced. His ejection fraction is normal. IMPRESSION: 1. Status post intubation for an altered mental status. 2. Severe metabolic acidosis is resolved, mechanical ventilation. 3. Severe intravascular volume depletion. 4. Bilateral lower extremity amputations. 5. Long history of drug use. 6. Status post bradycardia requiring pacing externally, resolved with correction of pH and potassium by mechanical ventilation. 7. Long history of medical noncompliance. His prognosis is dismal. Critical care time is 35 minutes. Job ID: [id number] MTDD
--- NOTE | 2019-04-19 17:50 | PDOC.HOSPP ---
- Subjective Encounter Date: 04/19/19 Encounter Time: 11:00 Subjective: The patient is intubated. He is off sedation, able to answer yes or no to some questions. He denied chest pain, shortness of breath or chest congestion. Per nursing staff, his urine output has decreased to 20/hour. - Objective Vital Signs & Weight: Vital Signs (12 hours) Temp Pulse Resp BP Pulse Ox 04/19/19 17:00 98.8 F 04/19/19 16:00 24 H 04/19/19 14:44 80 131/66 04/19/19 14:00 24 H 04/19/19 12:57 85 144/80 H 04/19/19 12:00 98.9 F 24 H 04/19/19 10:31 77 04/19/19 10:00 24 H 04/19/19 08:00 98.8 F 100 04/19/19 07:55 79 111/70 04/19/19 06:00 30 H Weight Admit Weight 151 lb Weight 151 lb 7.321 oz Most Recent Monitor Data Heart Rate from ECG 86 NIBP 131/77 NIBP BP-Mean 95 Respiration from ECG 24 SpO2 97 I&O: 04/18/19 04/19/19 04/20/19 06:59 06:59 06:59 Intake Total 2040.5 1003 Output Total 817 740 Balance 1223.5 263 Result Diagrams: 04/19/19 04:47 04/19/19 04:47 Additional Labs: Accuchecks 04/19/19 04/18/19 10:50 22:03 POC Glucose 98 188 H Hospitalist ROS - Review of Systems Constitutional: denies: fever, chills Respiratory: denies: cough - Medication Medications: Active Medications Generic Name Dose Route Start Last Admin Trade Name Freq PRN Reason Stop Dose Admin Famotidine 20 mg 04/18/19 21:00 04/18/19 21:04 Pepcid SLOW IVP 20 mg HS ALLEN Administration Cefepime HCl 1 gm/ Sodium 100 mls @ 200 mls/hr 04/19/19 12:00 04/19/19 11:27 Chloride IVPB 100 mls Q24HR@1200 ALLEN Administration Nicardipine HCl 25 mg/ Sodium 250 mls @ 0 mls/hr 04/18/19 18:15 02/14/20 18: 22 Chloride IVPB 250 mls INF ALLEN Administration Protocol Titrate Sodium Chloride 1,000 mls @ 50 mls/hr 04/19/19 11:15 04/19/19 17:43 Normal Saline 0.9% IV 1,000 mls .Q20H ALLEN Administration Propofol 1,000 mg 04/18/19 18:02 04/19/19 16:53 Diprivan IV 05/18/19 18:02 1,000 mg INF PRN Administration TO ACHIEVE GOAL RASS Protocol - Exam General Appearance: NAD General - other findings: intubated . Responds to some questions Eye: PERRL, anicteric sclera ENT: normocephalic atraumatic, no oropharyngeal lesions Neck: supple, symmetric, no JVD Heart: RRR, no murmur, no gallops, no rubs Respiratory: CTAB Respiratory - other findings: mild rales at bases Gastrointestinal: soft, non-tender, non-distended Extremities: no cyanosis, no clubbing, 1+ LE edema Skin: normal turgor, no lesions, no rashes Neurological: no new deficit Hosp A/P - Plan Chest X ray: bilateral effusions CT brain: negative This is a 63 year old male with past medical history of diabetes who presented with elevated blood sugar after eating grapes, was found to also be in acute renal failure and severely bradycardic requiring a pacemaker Acute hypoxic respiratory failure - possibly pneumonia vs pulmonary edema Leukocytosis - WBC increased from 13 to 15. On IV cefepime. Vanc discontinued. Blood culture shows 1/2 gram positive cocci , likely contaminant - currently still intubated, he is off sedation but not adequate tidal volumes yet - urine culture shows no growth Respiratory alkalosis - pH 7.49. Consider decreasing RR rate Acute renal failure Hyperkalemia - resolved - worsening, creatinine up to 4.5 - will decrease IV fluid rate to 50/hour - if continues to worsen consider nephro consult Bradycardia - cardiology was consulted. Holding coreg - he is no longer requiring external pacemaker Possible DKA - blood sugar of 400 on pressentation with metabolic acidosis - off insulin drip currently - blood glucose q6 hours Hypertension - hold coreg and lasix for now COPD - stable Code status: full code
--- NOTE | 2019-04-19 18:22 | PDOC.CPN ---
- Subjective Date: 04/19/19 Time: 15:15 Interval history: No new issues. Remains sedated, intubated. - Review of Systems ROS unobtainable: due to endotracheal tube - Objective Allergies/Adverse Reactions: Allergies Allergy/AdvReac Type Severity Reaction Status Date / Time No Known Allergies Allergy Verified 04/18/19 11:44 Visit Medications: Current Medications Famotidine (Pepcid) 20 mg SLOW IVP HS ALLEN Last Admin: 04/18/19 21:04 Dose: 20 mg Fentanyl Citrate 2,000 mcg/ (Sodium Chloride) 100 mls @ 0 mls/hr IV INF ALLEN; Protocol Stop: 05/18/19 10:57 Cefepime HCl 1 gm/ Sodium (Chloride) 100 mls @ 200 mls/hr IVPB Q24HR@1200 ALLEN Last Admin: 04/19/19 11:27 Dose: 100 mls Fentanyl Citrate (Fentanyl Bolus) 250 mls @ 0 mls/hr IVPB PRN PRN PRN Reason: Breakthrough pain/agitation Stop: 05/18/19 18:02 Nicardipine HCl 25 mg/ Sodium (Chloride) 250 mls @ 0 mls/hr IVPB INF ALLEN; Protocol Last Admin: 04/18/19 18:22 Dose: 250 mls Vancomycin HCl 500 mg/ Sodium (Chloride) 100 mls @ 100 mls/hr IVPB WILLCALL ALLEN Sodium Chloride (Normal Saline 0.9%) 1,000 mls @ 50 mls/hr IV .Q20H ALLEN Last Admin: 04/19/19 17:43 Dose: 1,000 mls Lorazepam (Ativan) 2 mg SLOW IVP Q1H PRN PRN Reason: Breakthrough agitation Stop: 05/18/19 18:02 Miscellaneous Medication (Pharmacy To Dose) 1 each IVPB PRN PRN PRN Reason: Pharmacy to dose Miscellaneous Medication (Pharmacy To Dose) 1 each IVPB PRN PRN PRN Reason: Pharmacy to dose Morphine Sulfate (Morphine) 2 mg SLOW IVP Q1H PRN PRN Reason: BREAKTHROUGH PAIN/Agitation Stop: 05/18/19 18:02 Hold Vancomycin For (Level >20) 0 each FS .AT DIALYSIS ALLEN Ondansetron HCl (Zofran) 4 mg IVP Q6H PRN PRN Reason: Nausea/Vomiting Propofol (Diprivan) 1,000 mg IV INF PRN; Protocol PRN Reason: TO ACHIEVE GOAL RASS Stop: 05/18/19 18:02 Last Admin: 04/19/19 16:53 Dose: 1,000 mg Propofol (Diprivan Bolus) 20 mg IV Q5MIN PRN PRN Reason: BREAKTHROUGH AGITATION Stop: 05/18/19 18:02 Sodium Chloride (Flush - Normal Saline) 10 ml IVF Q12HR ALLEN Sodium Chloride (Flush - Normal Saline) 10 ml IVF PRN PRN PRN Reason: Saline Flush Vital Signs & Weight: Vital Signs Temp Pulse Resp BP Pulse Ox 04/19/19 17:00 98.8 F 04/19/19 16:00 24 H 04/19/19 14:44 80 131/66 04/19/19 14:00 24 H 04/19/19 12:57 85 144/80 H 04/19/19 12:00 98.9 F 24 H 04/19/19 10:31 77 04/19/19 10:00 24 H 04/19/19 08:00 98.8 F 100 04/19/19 07:55 79 111/70 Admit Weight 151 lb Weight 151 lb 7.321 oz - Physical Exam General: other (S/I) HEENT: normocephaly Neck: supple neck Cardiac: regular rate and rhythm Lungs: scattered rhonchi Neuro: no lateralizing findings Abdomen: active bowel sounds Extremities: other: ([place] AKA) Skin: clear Musculoskeletal: no fluid collection - Labs Result Diagrams: 04/19/19 04:47 04/19/19 04:47 Troponin/CKMB CK-MB (CK-2) 2.0 ng/mL (0-6.6) 04/18/19 10:27 Troponin I 0.086 ng/mL (< 0.028) H 04/18/19 16:25 - Telemetry Sinus rhythms and dysrhythmias: sinus rhythm - Assessment/Plan Assessment/Plan: 1. [place], resolved. 2. Hyperkalemia, resolved. 3. WILLIS on CKD, stage 4. 4. CAD, stable 5. Non compliance 6. Hx of substance abuse. UDS positive for marihuana. PLAN: - Bradycardia resolved with correction of K and acidosis. - Normal EF - Continue supportive care - Poor mcfp prognosis. - Severely ill and would not be unexpected. - Critical Care Time Critical care time (mins): 30
[2019-04-19] MEDS: Famotidine/PF 20 mg/2ml Vial SLOW IVP SCH (20:39)
[2019-04-20 04:33] LABS: Anion Gap 13 mmol/L (10-20); BUN (Urea Nitrogen) 39 mg/dL (8.4-25.7); Calc. Creatinine Clearance 17 mL/min (70-130); Calcium 7.9 mg/dL (7.8-10.44); Carbon Dioxide 15 mmol/L (23-31); Chloride 113 mmol/L (98-107); Estimated GFR-MDRD 16; Glucose 74 mg/dL (80-115); Potassium 3.9 mmol/L (3.5-5.1); Sodium 137 mmol/L (136-145)
[2019-04-20 07:01] LABS: Actual Bicarbonate (HCO3a) 14.5 mEq/L (22-28); Base Excess (BEa) -6.4 mEq/L (-2.0 to +3.0); Calcium, Ionized 1.14 mmol/L (1.12-1.30); Hemoglobin (Hb) 13.1 g/dL (14.0-18.0); O2 Tension (PaO2) 83.9 mmHg (> 80.0); pH, Arterial 7.49 (7.35-7.45)
[2019-04-20 07:05] LABS: CO2 Tension 19.4 mmHg (35.0-45.0); Puncture Site RRA
[2019-04-20] MEDS ORDERED: Sodium Bicarbonate Tab 325 MG TAB PER TUBE PRN (09:44)
[2019-04-20] MEDS ORDERED: Pancrelipase DR 12000 1 CAP PER TUBE PRN (09:44)
[2019-04-20] MEDS ORDERED: Dextrose 5 %-0.45 % NaCl 1,000 ML IV SCH (10:00)
[2019-04-20] MEDS ORDERED: Carvedilol 6.25 MG TAB PER TUBE SCH (10:15)
--- NOTE | 2019-04-20 10:55 | RAD ---
EXAM: Single view of the chest HISTORY: Respiratory failure status post intubation COMPARISON: 04/18/2019 FINDINGS: Single view of the chest shows a normal sized cardiomediastinal silhouette. The patient is status post sternotomy. An endotracheal tube and NG tube are unchanged in position. There is subtle opacity obscuring left hemidiaphragm which could represent a left pleural effusion or infiltra te. The bones are unremarkable. IMPRESSION: Stable exam
[2019-04-20 11:56] LABS: Hemoglobin 13.4 g/dL (14.0-18.0); Mean Corpuscular HGB CONC 32.9 g/dL (32.0-36.0); Mean Corpuscular Hemoglobin 29.6 pg (27.0-31.0); Mean Platelet Volume 10.8 fL (7.4-10.4); Platelet Count 113 thou/uL (130-400); Red Blood Cell (RBC) Count 4.53 mill/uL (4.70-6.10); White Blood Cell (WBC) Count 11.9 thou/uL (4.8-10.8)
[2019-04-20 12:13] LABS: Vancomycin, Random 9.7 ug/mL (See Comment)
[2019-04-20] MEDS: Cefepime 1 GM in Sodium Chloride 0.9% 100 ML IVPB SCH (12:33)
[2019-04-20] MEDS ORDERED: Vancomycin HCl 1 GM in Premix Bag 1 BAG IVPB SCH (13:00)
[2019-04-20] MEDS: Propofol 1,000 MG/100 ML VIAL IV PRN (14:37)
--- NOTE | 2019-04-20 15:27 | PDOC.HOSPP ---
- Subjective Encounter Date: 04/20/19 Encounter Time: 01:30 Subjective: The patient is still intubated. He opens his eyes to name. He does not answer questions though. Appears more drowsy His urine output has improved today - Objective Vital Signs & Weight: Vital Signs (12 hours) Temp Pulse Resp BP Pulse Ox 04/20/19 15:02 89 163/86 H 04/20/19 14:00 16 04/20/19 12:00 17 04/20/19 11:09 91 170/87 H 04/20/19 11:06 170/87 H 04/20/19 11:00 99.3 F 04/20/19 10:00 16 04/20/19 09:48 85 04/20/19 08:00 24 H 100 04/20/19 07:00 98.9 F 04/20/19 06:00 24 H 04/20/19 04:11 95 04/20/19 04:00 98.3 F 24 H Weight Admit Weight 151 lb Weight 151 lb 7.321 oz Most Recent Monitor Data Heart Rate from ECG 68 NIBP 112/64 NIBP BP-Mean 80 Respiration from ECG 16 SpO2 100 I&O: 04/19/19 04/20/19 04/21/19 06:59 06:59 06:59 Intake Total 2040.5 1896 515 Output Total 817 2760 900 Balance 1223.5 -864 -385 Result Diagrams: 04/20/19 11:42 04/20/19 03:30 Additional Labs: Accuchecks 04/20/19 04/20/19 04/20/19 10:41 05:37 02:27 POC Glucose 84 64 L 69 L 04/19/19 04/19/19 23:41 17:58 POC Glucose 68 L 81 Hospitalist ROS - Review of Systems Constitutional: denies: fever - Medication Medications: Active Medications Generic Name Dose Route Start Last Admin Trade Name Freq PRN Reason Stop Dose Admin Diltiazem HCl 60 mg 04/20/19 10:00 04/20/19 10:17 Cardizem PER TUBE 60 mg Q6H ALLEN Administration Famotidine 20 mg 04/18/19 21:00 04/19/19 20:39 Pepcid SLOW IVP 20 mg HS ALLEN Administration Cefepime HCl 1 gm/ Sodium 100 mls @ 200 mls/hr 04/19/19 12:00 04/20/19 12:33 Chloride IVPB 100 mls Q24HR@1200 ALLEN Administration Nicardipine HCl 25 mg/ Sodium 250 mls @ 0 mls/hr 04/18/19 18:15 04/18/19 18: 22 Chloride IVPB 250 mls INF ALLEN Administration Protocol Titrate Dextrose/Sodium Chloride 1,000 mls @ 75 mls/hr 04/20/19 10:00 04/20/19 11:06 D5 1/2 Ns IV 1,000 mls .[id number] ALLEN Administration Vancomycin HCl 1 gm/ Device 200 mls @ 200 mls/hr 04/20/19 13:00 04/20/19 14: 36 IVPB 04/20/19 16:00 200 mls 1300 ALLEN Administration Propofol 1,000 mg 04/18/19 18:02 04/20/19 14:37 Diprivan IV 05/18/19 18:02 1,000 mg INF PRN Administration TO ACHIEVE GOAL RASS Protocol Sodium Chloride 10 ml 04/19/19 21:00 04/20/19 10:16 Flush - Normal Saline IVF 10 ml Q12HR ALLEN Administration - Exam General - other findings: appears ill. Drowsy, responds to name Eye: PERRL, anicteric sclera ENT: normocephalic atraumatic, no oropharyngeal lesions Neck: no JVD Heart: RRR, no murmur, no gallops, no rubs Respiratory: CTAB, no wheezes, no rales Gastrointestinal: soft, non-tender, non-distended Extremities: no cyanosis, no clubbing, no edema Skin: normal turgor, no lesions, no rashes Hosp A/P - Plan Chest X ray: bilateral effusions CT brain: negative This is a 63 year old male with past medical history of diabetes who presented with elevated blood sugar after eating grapes, was found to also be in acute renal failure and severely bradycardic requiring a pacemaker #Acute hypoxic respiratory failure - possibly pneumonia vs pulmonary edema #Leukocytosis - WBC down to 11. On IV cefepime and cefepime. Chest Xray shows possible left sided infiltrate. Blood culture shows 1/2 gram positive cocci with staph epi - currently still intubated, he is off sedation but not adequate tidal volumes yet - urine culture shows no growth #Acute renal failure #Hyperkalemia - resolved - worsening, creatinine up to 4.5 - IV fluids at 50/hour - nephrology consulted, for now continue current management, patients urine output improving Respiratory alkalosis - pH 7.49. Consider decreasing RR rate Bradycardia - cardiology was consulted. Holding coreg - he is no longer requiring external pacemaker Possible DKA - blood sugar of 400 on pressentation with metabolic acidosis - off insulin drip currently - blood glucose q6 hours Hypertension - hold coreg and lasix for now COPD - stable Code status: full code
[2019-04-20] MEDS: Sodium Bicarbonate 150 MEQ in Dextrose 5% in Water 1,000 ML IV SCH (16:25)
--- NOTE | 2019-04-20 16:46 | PDOC.CPN ---
- Subjective Date: 04/20/19 Time: 16:45 Interval history: Remains sedated and intubated. - Review of Systems ROS unobtainable: due to endotracheal tube - Objective Allergies/Adverse Reactions: Allergies Allergy/AdvReac Type Severity Reaction Status Date / Time No Known Allergies Allergy Verified 04/18/19 11:44 Visit Medications: Current Medications Lipase/Protease/Amylase (Hortensia [place] 38875) 1 cap PER TUBE PRN PRN PRN Reason: TUBE OCCLUSION [place] Carvedilol (Coreg) 6.25 mg PER TUBE BID ALLEN Diltiazem HCl (Cardizem) 60 mg PER TUBE Q6H ALLEN Last Admin: 04/20/19 15:32 Dose: 60 mg Famotidine (Pepcid) 20 mg SLOW IVP HS [facility] Last Admin: 04/19/19 20:39 Dose: 20 mg Fentanyl Citrate 2,000 mcg/ (Sodium Chloride) 100 mls @ 0 mls/hr IV INF ALLEN; Protocol Stop: 05/18/19 10:57 Cefepime HCl 1 gm/ Sodium (Chloride) 100 mls @ 200 mls/hr IVPB Q24HR@1200 ALLEN Last Admin: 04/20/19 12:33 Dose: 100 mls Fentanyl Citrate (Fentanyl Bolus) 250 mls @ 0 mls/hr IVPB PRN PRN PRN Reason: Breakthrough pain/agitation Stop: 05/18/19 18:02 Nicardipine HCl 25 mg/ Sodium (Chloride) 250 mls @ 0 mls/hr IVPB INF ALLEN; Protocol Last Admin: 04/18/19 18:22 Dose: 250 mls Vancomycin HCl 1 gm/ Device 200 mls @ 200 mls/hr IVPB 1300 ALLEN Sodium Bicarbonate 150 meq/ (Dextrose/Water) 1,150 mls @ 75 mls/hr IV .[id number] ALLEN Last Admin: 04/20/19 16:25 Dose: 1,150 mls Lorazepam (Ativan) 2 mg SLOW IVP Q1H PRN PRN Reason: Breakthrough agitation Stop: 05/18/19 18:02 Miscellaneous Medication (Pharmacy To Dose) 1 each IVPB PRN PRN PRN Reason: Pharmacy to dose Miscellaneous Medication (Pharmacy To Dose) 1 each IVPB PRN PRN PRN Reason: Pharmacy to dose Morphine Sulfate (Morphine) 2 mg SLOW IVP Q1H PRN PRN Reason: BREAKTHROUGH PAIN/Agitation Stop: 05/18/19 18:02 Hold Vancomycin For (Level >20) 0 each FS .AT DIALYSIS [facility] Ondansetron HCl (Zofran) 4 mg IVP Q6H PRN PRN Reason: Nausea/Vomiting Propofol (Diprivan) 1,000 mg IV INF PRN; Protocol PRN Reason: TO ACHIEVE GOAL RASS Stop: 05/18/19 18:02 Last Admin: 04/20/19 14:37 Dose: 1,000 mg Propofol (Diprivan Bolus) 20 mg IV Q5MIN PRN PRN Reason: BREAKTHROUGH AGITATION Stop: 05/18/19 18:02 Sodium Bicarbonate (Bicarbonate, Sodium) 650 mg PER TUBE PRN PRN PRN Reason: TUBE OCCLUSION TX Sodium Chloride (Flush - Normal Saline) 10 ml IVF Q12HR ALLEN Last Admin: 04/20/19 10:16 Dose: 10 ml Sodium Chloride (Flush - Normal Saline) 10 ml IVF PRN PRN PRN Reason: Saline Flush Vital Signs & Weight: Vital Signs Temp Pulse Resp BP Pulse Ox 04/20/19 16:00 18 04/20/19 15:02 89 163/86 H 04/20/19 15:00 99 F 04/20/19 14:00 16 04/20/19 12:00 17 04/20/19 11:09 91 170/87 H 04/20/19 11:06 170/87 H 04/20/19 11:00 99.3 F 04/20/19 10:00 16 04/20/19 09:48 85 04/20/19 08:00 24 H 100 04/20/19 07:00 98.9 F 04/20/19 06:00 24 H Admit Weight 151 lb Weight 151 lb 7.321 oz - Physical Exam General: other (S/I) HEENT: mucus membranes moist Neck: supple neck Cardiac: regular rate and rhythm Lungs: scattered rhonchi Neuro: no lateralizing findings Abdomen: active bowel sounds Extremities: other: (Biolat AKA.) Skin: clear Musculoskeletal: normal range of motion - Labs Result Diagrams: 04/20/19 11:42 04/20/19 03:30 Troponin/CKMB CK-MB (CK-2) 2.0 ng/mL (0-6.6) 04/18/19 10:27 Troponin I 0.086 ng/mL (< 0.028) H 04/18/19 16:25 - Telemetry Sinus rhythms and dysrhythmias: sinus rhythm - Assessment/Plan Assessment/Plan: 1. [place]cadia, resolved. 2. Hyperkalemia, resolved. 3. WILLIS on CKD, stage 4. 4. CAD, stable 5. Non compliance 6. Hx of substance abuse. UDS positive for marihuana. PLAN: - Bradycardia resolved with correction of K and acidosis. - Normal EF - Continue supportive care - Poor care home prognosis. - Dr. Morales will resume care tomorrow.
--- NOTE | 2019-04-20 17:03 | PRG ---
DATE OF SERVICE: 04/20/2019 SUBJECTIVE: Prudencio Calderon has awakened surprisingly today, follows commands, makes eye contact. OBJECTIVE: VITAL SIGNS: Blood pressure 163/86, heart rate 89, respiratory rates in the teens. LUNGS: Clear. HEART: Regular rhythm. ABDOMEN: Soft. EXTREMITIES: He has no lower extremities. LABORATORY DATA: White count 11.9, hemoglobin 13.4, platelets 113. Sodium 137, potassium 3.9, chloride 113, bicarb 15, BUN 39, creatinine 4.56. IMAGING DATA: Chest radiograph shows atelectasis at the left base. IMPRESSION: 1. Status post respiratory failure for severe metabolic acidosis. 2. Status post external pacing for hyperkalemia with severe metabolic acidosis. 3. Double amputee. 4. Chronic kidney disease with declining renal function. 5. Encephalopathy, that appears to have resolved. 6. Long history of medical noncompliance and substance abuse. PLAN: Continue supportive care, slow weaning from mechanical ventilation. CRITICAL CARE TIME: 30 minutes. Job ID: [id number]
--- NOTE | 2019-04-20 18:37 | CON ---
DATE OF CONSULTATION: REASON FOR CONSULTATION: Elevated creatinine. HISTORY OF PRESENT ILLNESS: This is a very pleasant 63-year-old gentleman, who presented to the hospital on April 18 with altered mental status. The patient was hypertensive, bradycardic, acidemic, and hyperkalemic as well. The patient's creatinine baseline in March was 3. It has ranged anywhere from 1.8 to 4.17 in 2019. The patient was dehydrated and was fluid resuscitated with some improvement in his creatinine. The patient can give no further history as he is intubated. PAST MEDICAL HISTORY: Acute kidney injury, hypertension, bradycardia, cardiomyopathy, COPD, diabetes mellitus, bilateral above knee amputation bilaterally, CABG, polypectomy. SOCIAL ECONOMIC HISTORY: Cocaine use. FAMILY HISTORY: Negative for ESRD. ALLERGIES: REVIEWED. MEDICATIONS: Home medication list reviewed. Hospital medication list reviewed. REVIEW OF SYSTEMS: Unobtainable. PHYSICAL EXAMINATION: GENERAL: The patient is resting, intubated. VITAL SIGNS: Afebrile, pulse 75, breathing 16, blood pressure 112/64. GENERAL APPEARANCE AND MENTAL STATUS: Fair. HEAD/NECK: Normocephalic. Atraumatic. EYES: EOMI. No deformity. EARS: Clear. No ulcers. NOSE: Intact. No lesions. MOUTH: Clear. No discharge. THROAT: Clear. No exudate. LUNGS: Clear. No crackles. CARDIAC: S1, S2. No rub. ABDOMEN: Benign. Bowel sounds positive. GENITALIA/RECTUM: Weinberg present. BACK/EXTREMITIES: Edema 0+. NEUROLOGICAL: The patient is resting. SKIN: LYMPHATICS: LABORATORY DATA: Reviewed. ASSESSMENT: 1. Acute kidney injury with chronic kidney disease, most likely due to decreased effective arterial blood volume and acute tubular necrosis caused by cardiovascular episode. Continue hydration. 2. Hypertension, stable. 3. Anemia, stable. 4. Medication based on GFR appropriate. No indication for dialysis at this time. Job ID: [id number]
[2019-04-20] MEDS: Famotidine/PF 20 mg/2ml Vial SLOW IVP SCH (20:26)
[2019-04-20] MEDS: Carvedilol 6.25 MG TAB PER TUBE SCH (20:27)
--- NOTE | 2019-04-20 21:32 | ULT ---
Exam: Bilateral renal ultrasound HISTORY: Worsening creatinine COMPARISON: 04/02/2018 FINDINGS: Right kidney: Normal cortical echotexture. No hydronephrosis. Right kidney measurements: 10.8 x 4.3 x 5.3 cm. Left kidney: Normal cortical echotexture. No hydronephrosis. Possible 0.7 cm calculus in the lower po le. Echogenic foci noted on the previous exam. Left kidney measurements 6.7 x 11.6 x 4.6 cm. Urinary bladder: Decompressed due to Weinberg catheterization IMPRESSION: No hydronephrosis.
[2019-04-21 05:57] LABS: #Basophils 0.1 thou/uL (0.0-0.2); #Eosinphils 0.3 thou/uL (0.0-0.7); #Lymphocytes 1.6 thou/uL (1.20-3.40); #Monocytes 1.1 thou/uL (0.11-0.59); #Neutrophils 6.6 thou/uL (1.40-6.50); %Basophils 0.5 % (0.0-1.0); %Eosinophils 2.7 % (0.0-10.0); %Lymphocytes 16.9 % (21.0-51.0); %Monocytes 10.9 % (0.0-10.0); Hemoglobin 11.8 g/dL (14.0-18.0); Mean Corpuscular HGB CONC 32.7 g/dL (32.0-36.0); Mean Corpuscular Hemoglobin 29.5 pg (27.0-31.0); Mean Corpuscular Volume 90.1 fL (78.0-98.0); Mean Platelet Volume 11.6 fL (7.4-10.4); Platelet Count 108 thou/uL (130-400); RBC Distribution Width 12.9 % (11.5-14.5); Red Blood Cell (RBC) Count 3.99 mill/uL (4.70-6.10); White Blood Cell (WBC) Count 9.6 thou/uL (4.8-10.8)
[2019-04-21 06:00] LABS: Anion Gap 10 mmol/L (10-20); BUN (Urea Nitrogen) 38 mg/dL (8.4-25.7); Calc. Creatinine Clearance 20 mL/min (70-130); Calcium 7.8 mg/dL (7.8-10.44); Carbon Dioxide 21 mmol/L (23-31); Chloride 111 mmol/L (98-107); Estimated GFR-MDRD 20; Glucose 110 mg/dL (80-115); Potassium 3.7 mmol/L (3.5-5.1); Sodium 138 mmol/L (136-145)
[2019-04-21] MEDS: Sodium Bicarbonate 150 MEQ in Dextrose 5% in Water 1,000 ML IV SCH (07:46)
[2019-04-21 08:12] LABS: Actual Bicarbonate (HCO3a) 19.9 mEq/L (22-28); Base Excess (BEa) -3.3 mEq/L (-2.0 to +3.0); CO2 Tension 29.3 mmHg (35.0-45.0); Calcium, Ionized 1.11 mmol/L (1.12-1.30); Carboxyhemoglobin (COHb) 0.4 gm% (0.0-3.0); Hemoglobin (Hb) 10.3 g/dL (14.0-18.0); O2 Tension (PaO2) 87.3 mmHg (> 80.0); Potassium - ABG Lab 3.54 mmol/L (3.70-5.30); pH, Arterial 7.45 (7.35-7.45)
[2019-04-21 08:18] LABS: ALV-art Gradient 125.625 (0-20); Puncture Site LRA
--- NOTE | 2019-04-21 08:36 | PRG ---
DATE OF SERVICE: 04/21/2019 35 minutes critical care time. SUBJECTIVE: The patient remains intubated on mechanical ventilation. He is lightly sedated, but will not follow any specific commands for me this morning. OBJECTIVE: VITAL SIGNS: His temperature is 99, pulse 62, blood pressure 141/75, O2 saturation 95%. 24-hour intake 3248, output 2200. HEENT: Unremarkable except for the endotracheal tube and the orogastric tube. NECK: No adenopathy or JVD. LUNGS: Clear anteriorly, slightly diminished breath sounds in the bases. CARDIAC: S1 and S2 regular. ABDOMEN: Soft and nontender. EXTREMITIES: Bilateral [id number] amputation. LABORATORY DATA: Sodium 138, potassium 3.7, chloride 111, CO2 of 21, BUN 38, creatinine 3.8, glucose 110. pH 7.49, pCO2 of 19, and pO2 of 83, that is on SIMV rate 24, tidal volume 500, PEEP 5, pressure support 10, FiO2 of 35%. White blood cell count of 9.6, hematocrit 35.9, platelet count 108. His chest x-ray is beginning to show some effusions and vascular congestion compared to the 16. ASSESSMENT: 1. Acute respiratory failure, requiring mechanical ventilation. 2. Acute on chronic renal failure. 3. Severe metabolic acidosis, improved on bicarbonate drip. 4. Developing fluid overload state. 5. Encephalopathy. PLAN: 1. At the current time, I do not think he is completely weanable, although we are able to decrease his respiratory rate today. 2. Would advise beginning to volume restrict if that is at all possible. 3. Currently on antibiotics. The only thing that is growing out is coag-negative staph from one blood culture that is probably a contaminant, might consider discontinuing vancomycin based on that. 4. GI prophylaxis with Pepcid. 5. Start DVT prophylaxis with subcu heparin. Job ID: [id number]
[2019-04-21] MEDS: Carvedilol 6.25 MG TAB PER TUBE SCH ×2 (09:08→21:02)
[2019-04-21] MEDS: Amiodarone 200 MG TAB PER TUBE SCH (09:08)
[2019-04-21] MEDS: Heparin 5,000 UNITS/ML VIAL SC SCH ×2 (09:08→21:03)
[2019-04-21] MEDS: Propofol 1,000 MG/100 ML VIAL IV PRN (09:09)
--- NOTE | 2019-04-21 09:20 | RAD ---
PORTABLE CHEST: HISTORY: Respiratory failure. CCU followup. COMPARISON: 04/20/2019. FINDINGS: Mild cardiomegaly with postop sternotomy change. Bilateral effusions and hazy bibasilar infiltrates and/or atelectasis. ET tube and NG Tube remain in position. IMPRESSION: No acute interval change apparent. POS: [facility]
[2019-04-21] MEDS ORDERED: Midazolam HCl 2 mg/2 ml Vial ONE (10:01)
[2019-04-21] MEDS ORDERED: Propofol 1,000 MG/100 ML VIAL IV ONE (10:01)
[2019-04-21] MEDS: Cefepime 1 GM in Sodium Chloride 0.9% 100 ML IVPB SCH (11:12)
[2019-04-21] MEDS: methylPREDNISolone Sod Succ 40 MG VIAL IVP SCH ×3 (11:12→22:52)
--- NOTE | 2019-04-21 12:41 | PRG ---
DATE OF SERVICE: 04/21/2019 SUBJECTIVE: This is a well-built male, who is in ICU, intubated and plan to extubate him today as tolerated. OBJECTIVE: GENERAL: This is a well-built male, no apparent distress. VITAL SIGNS: Temperature 99.6, pulse 79, respiratory rate blood pressure 128/61. HEENT: Intubated. CV: S1 and S2 heard. RESPIRATORY: Clear. GI: Abdomen is soft. MUSCULOSKELETAL: No edema. DERMATOLOGIC: No skin rash. Neurologic: Intubated but awake. LABORATORY DATA: Hemoglobin is 11.8. Potassium 3.7, BUN is 38, and creatinine is 3.7. ASSESSMENT AND PLAN: 1. Acute kidney injury on chronic kidney disease stage . Renal function seems to be better. 2. Acidosis. 3. Hypertension. 4. Anemia. 5. Renal function is getting better. Avoid nephrotoxins. We will follow. Job ID: [id number]
[2019-04-21] MEDS ORDERED: Vancomycin HCl 1 GM in Premix Bag 1 BAG IVPB SCH (13:00)
--- NOTE | 2019-04-21 17:25 | PDOC.HOSPP ---
- Subjective Encounter Date: 04/21/19 Encounter Time: 17:23 Subjective: The patient is still intubated. He is more alert today, following some commands. Cannot wean from ventilator yet Patient denies chest pain or shortness of breath - Objective Vital Signs & Weight: Vital Signs (12 hours) Temp Pulse Resp BP Pulse Ox 04/21/19 16:00 99.1 F 20 04/21/19 14:17 73 143/69 H 04/21/19 14:00 19 04/21/19 12:00 99.5 F 24 H 04/21/19 10:53 75 131/67 04/21/19 10:00 32 H 04/21/19 09:08 159/81 H 04/21/19 08:00 99.6 F 21 H 100 04/21/19 07:13 65 146/74 H 04/21/19 06:00 18 Weight Admit Weight 151 lb Weight 151 lb 7.321 oz Most Recent Monitor Data Heart Rate from ECG 72 NIBP 141/73 NIBP BP-Mean 95 Respiration from ECG 18 SpO2 100 I&O: 04/20/19 04/21/19 04/22/19 06:59 06:59 06:59 Intake Total 1896 3248 290 Output Total 2760 2200 865 Balance -864 1048 -575 Result Diagrams: 04/21/19 04:15 04/21/19 04:15 Additional Labs: Accuchecks 04/21/19 04/21/19 04/21/19 16:14 10:07 04:21 POC Glucose 159 H 113 H 105 04/20/19 22:02 POC Glucose 114 H Hospitalist ROS - Review of Systems Constitutional: denies: fever, chills - Medication Medications: Active Medications Generic Name Dose Route Start Last Admin Trade Name Freq PRN Reason Stop Dose Admin Amiodarone HCl 200 mg 04/21/19 09:00 04/21/19 09:08 Cordarone PER TUBE 200 mg DAILY ALLEN Administration Carvedilol 6.25 mg 04/20/19 21:00 04/21/19 09:08 Coreg PER TUBE 6.25 mg BID ALLEN Administration Diltiazem HCl 60 mg 04/20/19 10:00 04/21/19 16:36 Cardizem PER TUBE 60 mg Q6H ALLEN Administration Famotidine 20 mg 04/18/19 21:00 04/20/19 20:26 Pepcid SLOW IVP 20 mg HS ALLEN Administration Heparin Sodium (Porcine) 5,000 units 04/21/19 09:00 04/21/19 09:08 Heparin SC 5,000 units BID ALLEN Administration Cefepime HCl 1 gm/ Sodium 100 mls @ 200 mls/hr 04/19/19 12:00 04/21/19 11:12 Chloride IVPB 100 mls Q24HR@1200 ALLEN Administration Sodium Bicarbonate 150 meq/ 1,150 mls @ 75 mls/hr 04/20/19 16:00 04/21/19 07: 46 Dextrose/Water IV 1,150 mls .[id number] ALLEN Administration Methylprednisolone Sodium Succinate 40 mg 04/21/19 11:00 04/21/19 16:36 Solu-Medrol IVP 40 mg Q6H ALLEN Administration Propofol 1,000 mg 04/18/19 18:02 04/21/19 09:09 Diprivan IV 05/18/19 18:02 1,000 mg INF PRN Administration TO ACHIEVE GOAL RASS Protocol Sodium Chloride 10 ml 04/19/19 21:00 04/21/19 09:08 Flush - Normal Saline IVF 10 ml Q12HR ALLEN Administration - Exam General Appearance: NAD, awake alert Eye: PERRL, anicteric sclera ENT: normocephalic atraumatic, no oropharyngeal lesions Neck: supple, symmetric, no JVD, no thyromegaly Heart: RRR, no murmur, no gallops, no rubs Respiratory: CTAB, no wheezes, no ronchi Gastrointestinal: soft, non-tender, non-distended, normal bowel sounds Extremities: no cyanosis, no clubbing, no edema Skin: normal turgor, no lesions Neurological - other findings: squeezed finger on the left side Hosp A/P - Plan Chest X ray: bilateral effusions CT brain: negative This is a 63 year old male with past medical history of diabetes who presented with elevated blood sugar after eating grapes, was found to also be in acute renal failure and severely bradycardic requiring a pacemaker #Acute hypoxic respiratory failure - possibly pneumonia vs pulmonary edema #Leukocytosis - WBC down to 9.6. On IV vanc and cefepime. Chest Xray shows possible left sided infiltrate. Blood culture shows 1/2 gram positive cocci with staph epi - still intubated, respiratory rate decreased per pulmonary - urine culture shows no growth #Acute renal failure #Hyperkalemia - resolved - improving, continue IV fluids - nephrology on board Respiratory alkalosis - resolved Bradycardia - cardiology was consulted. Holding coreg - he is no longer requiring external pacemaker Possible DKA - blood sugar of 400 on pressentation with metabolic acidosis - off insulin drip currently - blood glucose q6 hours Hypertension - hold coreg and lasix for now COPD - stable Code status: full code
[2019-04-21] MEDS: Famotidine/PF 20 mg/2ml Vial SLOW IVP SCH (21:03)
[2019-04-22] MEDS: Sodium Bicarbonate 150 MEQ in Dextrose 5% in Water 1,000 ML IV SCH (01:41)
[2019-04-22] MEDS: methylPREDNISolone Sod Succ 40 MG VIAL IVP SCH ×4 (04:13→21:02)
[2019-04-22 04:49] LABS: Anion Gap 14 mmol/L (10-20); BUN (Urea Nitrogen) 37 mg/dL (8.4-25.7); Calc. Creatinine Clearance 22 mL/min (70-130); Calcium 8.2 mg/dL (7.8-10.44); Carbon Dioxide 26 mmol/L (23-31); Cardiac Risk 4.8 (Less than 4.5); Chloride 101 mmol/L (98-107); Cholesterol 177 mg/dl (< 200 Desired); Estimated GFR-MDRD 22; Glucose 301 mg/dL (80-115); HDL Cholesterol 37 mg/dL (>60 Neg Risk); LDL Cholesterol, Calculated 114 mg/dL; Sodium 137 mmol/L (136-145); Triglycerides 131 mg/dL (Less than 150)
[2019-04-22 05:34] LABS: Band 12 % (5-11); Hemoglobin 13.4 g/dL (14.0-18.0); Lymphocytes 9 % (21-51); MDiff Complete? YES; Mean Corpuscular Hemoglobin 29.5 pg (27.0-31.0); Mean Corpuscular Volume 89.5 fL (78.0-98.0); Mean Platelet Volume 11.5 fL (7.4-10.4); Neutrophil 79 % (42-75); Platelet Count 121 thou/uL (130-400); Platelet Morphology Comment Appears Decreased; Red Blood Cell (RBC) Count 4.55 mill/uL (4.70-6.10); White Blood Cell (WBC) Count 15.5 thou/uL (4.8-10.8)
[2019-04-22 07:44] LABS: Actual Bicarbonate (HCO3a) 24.8 mEq/L (22-28); Base Excess (BEa) 0.8 mEq/L (-2.0 to +3.0); CO2 Tension 37.7 mmHg (35.0-45.0); Calcium, Ionized 1.09 mmol/L (1.12-1.30); Carboxyhemoglobin (COHb) 0.9 gm% (0.0-3.0); Hemoglobin (Hb) 14.1 g/dL (14.0-18.0); O2 Tension (PaO2) 76.8 mmHg (> 80.0); Potassium - ABG Lab 4.17 mmol/L (3.70-5.30); pH, Arterial 7.44 (7.35-7.45)
[2019-04-22 07:46] LABS: ALV-art Gradient 75.715 (0-20); Puncture Site LRA
[2019-04-22] MEDS ORDERED: DC Sedation Protocol FS ONE (07:50)
[2019-04-22] MEDS ORDERED: Furosemide 40 MG/4 ML VIAL SLOW IVP SCH (08:00)
--- NOTE | 2019-04-22 08:40 | PRG ---
DATE OF SERVICE: 04/22/2019 TIME SPENT: 35 minutes of critical time. SUBJECTIVE: The patient remains intubated on mechanical ventilation. He is on spontaneous breathing. He is doing well with that. He can follow commands without difficulty. OBJECTIVE: VITAL SIGNS: Temperature is 98.1, pulse 70, blood pressure 139/73, O2 saturation 100%. A 24-hour intake 2030, output 1825. HEENT: Unremarkable. NECK: No adenopathy or JVD. LUNGS: Coarse breath sounds. CARDIAC: S1 and S2 regular. ABDOMEN: Soft. EXTREMITIES: No edema. He has bilateral [id number] amputations. IMAGING: His chest x-ray shows bilateral effusions. LABORATORY DATA: Sodium 137, potassium 4.0, chloride 101, CO2 of 26, BUN 37, creatinine 3.4, glucose 301. White blood cell count 15, hematocrit 40, platelet count 121. pH of 7.44, pCO2 of 37, pO2 of 76. ASSESSMENT: 1. Acute respiratory failure, requiring mechanical ventilation. 2. Acute on chronic renal failure, chronic kidney disease. 3. Metabolic acidosis, which improved on bicarbonate. 4. Fluid overloaded. PLAN: 1. He does meet criteria for extubation. 2. I would recommend stopping the bicarbonate drip and giving him a dose of diuretics. 3. Decrease steroid dose. 4. Consider increasing insulin coverage if blood sugars remain high. Job ID: [id number]
[2019-04-22] MEDS: Heparin 5,000 UNITS/ML VIAL SC SCH ×2 (09:07→21:01)
[2019-04-22] MEDS: Carvedilol 6.25 MG TAB PER TUBE SCH ×2 (09:08→21:01)
[2019-04-22] MEDS: Amiodarone 200 MG TAB PER TUBE SCH (09:09)
--- NOTE | 2019-04-22 10:38 | RAD ---
PORTABLE CHEST: Date: 04/22/2019 HISTORY: Pneumonia. CCU follow-up. COMPARISON: 04/21/2019. FINDINGS: Bilateral effusions and bibasilar atelectasis/infiltrates again noted. Upper lung zones remain clear. ET tube and NG tube unchanged. IMPRESSION: No acute interval change. POS: [facility]
[2019-04-22] MEDS: Cefepime 1 GM in Sodium Chloride 0.9% 100 ML IVPB SCH (12:35)
[2019-04-22] MEDS ORDERED: Dextrose 50% Abboject 50 ML SYRINGE IVP PRN (15:58)
[2019-04-22] MEDS ORDERED: Dextrose 5% in Water 1,000 ML IV PRN (15:58)
[2019-04-22] MEDS: Insulin Regular 300 UNITS/3 ML VIAL SC PRN ×2 (16:19→21:11)
--- NOTE | 2019-04-22 16:24 | PDOC.HOSPP ---
- Subjective Encounter Date: 04/22/19 Encounter Time: 13:00 Subjective: THe patient was extubated today. He is very drowsy but answers questions. He denies chest pain or shortness of breath. He is oriented to the month and the year. - Objective Vital Signs & Weight: Vital Signs (12 hours) Temp Pulse Resp BP Pulse Ox 04/22/19 12:00 99.0 F 04/22/19 09:08 147/70 H 04/22/19 09:00 100 04/22/19 08:09 93 17 99 04/22/19 08:00 98.9 F 04/22/19 07:04 82 147/70 H 04/22/19 06:00 21 H Weight Admit Weight 151 lb Weight 151 lb 7.321 oz Most Recent Monitor Data Heart Rate from ECG 72 NIBP 135/64 NIBP BP-Mean 87 Respiration from ECG 10 SpO2 100 I&O: 04/21/19 04/22/19 04/23/19 06:59 06:59 06:59 Intake Total 3248 2838 Output Total 2200 1825 660 Balance 1048 1013 -660 Result Diagrams: 04/22/19 04:10 04/22/19 04:10 Additional Labs: Accuchecks 04/22/19 04/22/19 04/22/19 15:38 10:37 04:12 POC Glucose 313 H 269 H 266 H 04/21/19 22:46 POC Glucose 225 H Hospitalist ROS - Review of Systems Constitutional: denies: fever, chills - Medication Medications: Active Medications Generic Name Dose Route Start Last Admin Trade Name Freq PRN Reason Stop Dose Admin Amiodarone HCl 200 mg 04/21/19 09:00 04/22/19 09:09 Cordarone PER TUBE 200 mg DAILY ALLEN Administration Carvedilol 6.25 mg 04/20/19 21:00 04/22/19 09:08 Coreg PER TUBE 6.25 mg BID ALLEN Administration Diltiazem HCl 60 mg 04/20/19 10:00 04/22/19 15:38 Cardizem PER TUBE 60 mg Q6H ALLEN Administration Heparin Sodium (Porcine) 5,000 units 04/21/19 09:00 04/22/19 09:07 Heparin SC 5,000 units BID ALLEN Administration Cefepime HCl 1 gm/ Sodium 100 mls @ 200 mls/hr 04/19/19 12:00 04/22/19 12:35 Chloride IVPB 100 mls Q24HR@1200 ALLEN Administration Insulin Human Regular 0 units 04/22/19 15:58 04/22/19 16:19 Humulin R SC 5 unit .MILD SLIDING PRN Administration MILD SLIDING SCALE Protocol Methylprednisolone Sodium Succinate 20 mg 04/22/19 10:00 04/22/19 15:38 Solu-Medrol IVP 20 mg 0400,1000,1600,2200 ALLEN Administration Sodium Chloride 10 ml 04/19/19 21:00 04/22/19 09:09 Flush - Normal Saline IVF 10 ml Q12HR ALLEN Administration - Exam General Appearance: NAD, awake alert General - other findings: awake, but intermittently drowsy like falling asleep Eye: PERRL, anicteric sclera ENT: normocephalic atraumatic, no oropharyngeal lesions Neck: supple, symmetric, no JVD, no thyromegaly Heart: RRR, no murmur, no gallops, no rubs Respiratory: CTAB, no wheezes, no rales, no ronchi Gastrointestinal: soft, non-tender, non-distended, normal bowel sounds, no palpable masses Extremities: no cyanosis, no clubbing, no edema Skin: normal turgor, no lesions, no rashes Neurological: cranial nerve grossly intact, normal sensation to touch, no focal deficits, no new deficit Hosp A/P - Plan Chest X ray: bilateral effusions CT brain: negative Chest Xray 04/22: bilateral effusion vs infiltrates This is a 63 year old male with past medical history of diabetes who presented with elevated blood sugar after eating grapes, was found to also be in acute renal failure and severely bradycardic requiring a pacemaker #Acute hypoxic respiratory failure - possibly pneumonia vs pulmonary edema - WBC down to 9.6. Chest Xray shows possible left sided infiltrate, repeat showed bilateral infiltrates Blood culture shows 1/2 gram positive cocci with staph epi - vancomycin discontinued 2.18 - continue cefepime day 4. Administered lasix 40 mg IV today for possible pulmonary edema - extubated today - urine culture shows no growth Dysphagia - will order speech consult Type II diabetes - had possible DKA on admission with BS > 400 on presentation - resume mild insulin sliding scale #Acute renal failure - improving #Hyperkalemia - resolved - creatinine improved to 3.45, received IV lasix today for pulmonary edema - nephrology on board Respiratory alkalosis - resolved Bradycardia- resolved - cardiology was consulted. Holding coreg - he is no longer requiring external pacemaker Hypertension - hold coreg and lasix for now COPD - stable Code status: full code
--- NOTE | 2019-04-22 16:56 | PRG ---
DATE OF SERVICE: 04/22/2019 SUBJECTIVE: Patient was seen and examined at bedside and overnight events noted. Patient denies any shortness of breath or chest pain or palpitation. No history of nausea or vomiting or diarrhea or fever or chills or cramps. OBJECTIVE: GENERAL: This is a well built male, in no apparent distress. VITAL SIGNS: Temperature 98.9. Heart rate 72. Respiratory rate 18. Blood pressure 141/72. HEENT: Atraumatic, normocephalic. Oral mucosa is moist NECK: Supple. CARDIOVASCULAR: S1, S2 heard. Rate and rhythm regular. RESPIRATORY: Clear to auscultation. GASTROINTESTINAL: Abdomen is soft. MUSCULOSKELETAL: No tenderness. No edema. DERMATOLOGIC: No skin rash. NEUROLOGIC: Alert and awake and oriented X3. No focal neurologic deficits. Moving all the extremities. PSYCHIATRIC: Mood and affect normal. LABORATORY DATA: Potassium 4.0, BUN is 37, and creatinine is 3.4 from 3.7 yesterday. Hemoglobin is 13.4. ASSESSMENT AND PLAN: 1. Acute kidney injury on chronic kidney disease, stage 4. Labs are stable, getting better. Avoid nephrotoxins at this point and continue supportive care. 2. Acidosis, stable. 3. Hypertension, titrate medication. 4. Anemia of chronic disease. 5. Edema. 6. Respiratory failure, extubated. Clinically stable and creatinine is getting better. We will continue to follow. Continue supportive care. Job ID: [id number]
[2019-04-22] MEDS: Famotidine 20 MG TAB PO SCH (21:01)
[2019-04-22] MEDS: Rosuvastatin 10 MG TAB PO SCH (21:01)
[2019-04-23] MEDS: methylPREDNISolone Sod Succ 40 MG VIAL IVP SCH (04:41)
[2019-04-23 05:26] LABS: #Lymphocytes 0.8 thou/uL (1.20-3.40); #Monocytes 0.5 thou/uL (0.11-0.59); #Neutrophils 13.4 thou/uL (1.40-6.50); %Basophils 0.1 % (0.0-1.0); %Eosinophils 0.1 % (0.0-10.0); %Lymphocytes 5.7 % (21.0-51.0); %Monocytes 3.7 % (0.0-10.0); %Neutrophils 90.6 % (42.0-75.0); Hemoglobin 11.8 g/dL (14.0-18.0); Mean Corpuscular Hemoglobin 29.7 pg (27.0-31.0); Mean Corpuscular Volume 90.1 fL (78.0-98.0); Mean Platelet Volume 11.5 fL (7.4-10.4); Platelet Count 137 thou/uL (130-400); RBC Distribution Width 12.9 % (11.5-14.5); Red Blood Cell (RBC) Count 3.99 mill/uL (4.70-6.10); White Blood Cell (WBC) Count 14.8 thou/uL (4.8-10.8)
[2019-04-23] MEDS: Insulin Regular 300 UNITS/3 ML VIAL SC PRN ×3 (05:54→21:11)
[2019-04-23 07:11] LABS: Anion Gap 12 mmol/L (10-20); BUN (Urea Nitrogen) 38 mg/dL (8.4-25.7); Calc. Creatinine Clearance 24 mL/min (70-130); Carbon Dioxide 26 mmol/L (23-31); Chloride 101 mmol/L (98-107); Estimated GFR-MDRD 25; Glucose 201 mg/dL (80-115); Potassium 3.9 mmol/L (3.5-5.1); Sodium 135 mmol/L (136-145)
--- NOTE | 2019-04-23 08:51 | PRG ---
DATE OF SERVICE: 04/23/2019 SUBJECTIVE: The patient was extubated yesterday, so far has done fine. He is hungry, wants to eat. OBJECTIVE: VITAL SIGNS: Temperature 97.8, pulse 75, blood pressure 152/73. Intake 1154, output 1900. HEENT: Unremarkable. NECK: No JVD. LUNGS: Clear anteriorly. CARDIAC: S1 and S2, regular. ABDOMEN: Soft. EXTREMITIES: Bilateral [id number] amputations. LABORATORY DATA: White blood cell count 14.8, hematocrit 35.9, platelet count 137. Sodium 135, potassium 3.9, chloride 101, CO2 of 26, BUN 38, creatinine 3.1, glucose 201. ASSESSMENT: 1. Status post acute respiratory failure, requiring mechanical ventilation. 2. Acute on chronic renal failure, chronic kidney disease. 3. Improved metabolic acidosis. 4. Improved fluid overload. PLAN: This patient can be transferred out to the medical floor for continued care. I will reduce his steroid dose even further. Job ID: [id number]
[2019-04-23] MEDS: Carvedilol 6.25 MG TAB PO SCH ×2 (09:08→20:29)
[2019-04-23] MEDS: predniSONE 20 MG TAB PO SCH (09:08)
[2019-04-23] MEDS: Amiodarone 200 MG TAB PO SCH (09:08)
[2019-04-23] MEDS: Heparin 5,000 UNITS/ML VIAL SC SCH ×2 (09:08→20:30)
--- NOTE | 2019-04-23 11:11 | PRG ---
DATE OF SERVICE: 04/23/2019 SUBJECTIVE: Patient was seen and examined at bedside and overnight events noted. Patient denies any shortness of breath or chest pain or palpitation. No history of nausea or vomiting or diarrhea or fever or chills or cramps. OBJECTIVE: GENERAL: This is a well-built male, in no acute distress. VITAL SIGNS: Temperature 97.8. Heart rate 66. Respiratory rate 23. Blood pressure 157/72. HEENT: Atraumatic, normocephalic. Oral mucosa is moist NECK: Supple. CARDIOVASCULAR: S1, S2 heard. Rate and rhythm regular. RESPIRATORY: Clear to auscultation. GASTROINTESTINAL: Abdomen is soft. MUSCULOSKELETAL: No tenderness. No edema. DERMATOLOGIC: No skin rash. NEUROLOGIC: Alert and awake and oriented X3. No focal neurologic deficits. Moving all the extremities. PSYCHIATRIC: Mood and affect normal. LABORATORY DATA: Potassium 3.9, BUN is 38, creatinine is 3.1. ASSESSMENT AND PLAN: 1. Acute kidney injury on chronic kidney disease, stage 4 with improvement in labs. 2. Acidosis. 3. Hypertension. 4. Anemia of chronic disease. 5. Edema, controlled. 6. Respiratory failure, extubated. 7. Mild hyponatremia. 8. Hyperglycemia. 9. Leukocytosis. 10. Chronic anemia which is mild. 11. Renal function is better. We will follow. Job ID: [id number]
[2019-04-23] MEDS: Cefepime 1 GM in Sodium Chloride 0.9% 100 ML IVPB SCH (11:42)
--- NOTE | 2019-04-23 13:39 | RAD ---
PORTABLE UPRIGHT FRONTAL CHEST RADIOGRAPH: 04/23/19 COMPARISON: 04/22/19 HISTORY: Re-evaluation pulmonary edema. FINDINGS: Endotracheal tube and nasogastric tube have been removed. Midline sternotomy wires are present. There is pulmonary vascular congestion. There is interstitial opacity in the perihilar regions with hazy b ibasilar pleural and parenchymal opacities, not significantly changed. IMPRESSION: Stable findings suggesting interstitial and alveolar pulmonary edema. Infectious pneumonitis or aspir ation in the lung bases cannot be excluded. Follow-up to resolution advised. POS: OFF
[2019-04-23] MEDS: Rosuvastatin 10 MG TAB PO SCH (20:30)
[2019-04-23] MEDS: Famotidine 20 MG TAB PO SCH (20:30)
--- NOTE | 2019-04-23 20:53 | PDOC.HOSPP ---
- Subjective Encounter Date: 04/23/19 Encounter Time: 13:00 Subjective: The patient is doing better. He had no complaints but in afternoon there was concern for right arm being weak and both hands being cold. The patient also said he felt off, but couldn't identify what his complaint was - Objective Vital Signs & Weight: Vital Signs (12 hours) Temp Pulse Resp BP BP BP Pulse Ox 04/23/19 20:29 139/63 04/23/19 20:17 98.2 F 64 15 139/63 93 L 04/23/19 16:40 98.5 F 62 18 129/71 95 04/23/19 14:52 97.9 F 80 18 132/67 95 04/23/19 14:35 98 04/23/19 12:00 97.9 F 04/23/19 09:08 143/77 H Weight Admit Weight 151 lb Weight 151 lb 7.321 oz Most Recent Monitor Data Heart Rate from ECG 72 NIBP 133/64 NIBP BP-Mean 87 Respiration from ECG 21 SpO2 92 I&O: 04/22/19 04/23/19 04/24/19 06:59 06:59 06:59 Intake Total 2838 1154 300 Output Total 1825 1900 365 Balance 1013 -746 -65 Result Diagrams: 04/23/19 04:56 04/23/19 06:20 Additional Labs: Accuchecks 04/23/19 04/23/19 04/23/19 20:17 17:17 11:28 POC Glucose 263 H 276 H 157 H 04/23/19 04/22/19 05:57 21:13 POC Glucose 208 H 248 H Hospitalist ROS - Review of Systems Constitutional: denies: fever, chills ENT: denies: ear pain, ear discharge - Medication Medications: Active Medications Generic Name Dose Route Start Last Admin Trade Name Freq PRN Reason Stop Dose Admin Amiodarone HCl 200 mg 04/23/19 09:00 04/23/19 09:08 Cordarone PO 200 mg DAILY ALLEN Administration Carvedilol 6.25 mg 04/23/19 09:00 04/23/19 20:29 Coreg PO 6.25 mg BID ALLEN Administration Diltiazem HCl 60 mg 04/23/19 09:00 04/23/19 20:30 Cardizem PO 60 mg Q6H ALLEN Administration Famotidine 20 mg 04/22/19 21:00 04/23/19 20:30 Pepcid PO 20 mg HS ALLEN Administration Heparin Sodium (Porcine) 5,000 units 04/21/19 09:00 04/23/19 20:30 Heparin SC 5,000 units BID ALLEN Administration Cefepime HCl 1 gm/ Sodium 100 mls @ 200 mls/hr 04/19/19 12:00 04/23/19 11:42 Chloride IVPB 100 mls Q24HR@1200 ALLEN Administration Insulin Human Regular 0 units 04/22/19 15:58 04/23/19 17:23 Humulin R SC 4 unit .MILD SLIDING PRN Administration MILD SLIDING SCALE Protocol Prednisone 20 mg 04/23/19 09:00 04/23/19 09:08 Prednisone PO 20 mg DAILY ALLEN Administration Rosuvastatin Calcium 10 mg 04/22/19 21:00 04/23/19 20:30 Crestor PO 10 mg HS ALLEN Administration Sodium Chloride 10 ml 04/19/19 21:00 04/23/19 20:32 Flush - Normal Saline IVF 10 ml Q12HR ALLEN Administration - Exam General Appearance: NAD, awake alert Eye: PERRL ENT: normocephalic atraumatic, no oropharyngeal lesions Neck: no JVD Heart: RRR, no murmur, no gallops, no rubs Respiratory: CTAB, no wheezes, no rales, no ronchi, normal percussion Gastrointestinal: soft, non-tender, non-distended Extremities: no cyanosis, no clubbing, no edema Musculoskeletal - other findings: diff lifting right arm up above 90 degrees. Left arm full ROM. No tendernes Psychiatric: normal affect, normal behavior, A&O x 3 Psychiatric - other findings: intermittently drowsy Hosp A/P - Plan Chest X ray: bilateral effusions CT brain: negative Chest Xray 04/22: bilateral effusion vs infiltrates This is a 63 year old male with past medical history of diabetes who presented with elevated blood sugar after eating grapes, was found to also be in acute renal failure and severely bradycardic requiring a pacemaker #Acute hypoxic respiratory failure - possibly pneumonia vs pulmonary edema - WBC down to 9.6. Chest Xray shows possible left sided infiltrate, repeat showed bilateral infiltrates Blood culture shows 1/2 gram positive cocci with staph epi - vancomycin discontinued 2.18 - continue cefepime day 5. Administered lasix 40 mg IV 04/22 for pulmonary edema. Repeat chest X ray 04/23 shows pulmonary edema, will try another dose of IV lasix - extubated 04/22 - urine culture shows no growth Dysphagia - speech recommended pureed diet Type II diabetes - had possible DKA on admission with BS > 400 on presentation - resume mild insulin sliding scale #Acute renal failure - improving #Hyperkalemia - resolved - creatinine improved to 3.15, give another dose of IV lasix ma - nephrology on board Respiratory alkalosis - resolved Bradycardia- resolved - cardiology was consulted. Holding coreg - he is no longer requiring external pacemaker Hypertension - hold coreg and lasix for now COPD - stable Code status: full code
[2019-04-23] MEDS ORDERED: Furosemide 40 MG/4 ML VIAL SLOW IVP SCH (21:00)
[2019-04-23] MEDS ORDERED: Dextrose 5% in Water 1,000 ML IV PRN (21:03)
--- NOTE | 2019-04-24 03:39 | PDOC.EVN ---
Event Note - Event Note Event Note: Notified by RN, patient with HR fluctuating between 40s and 60s. He was requiring external pacemaker due to severe bradycardia on initial presentation. Patient asymptomatic and BP stable. EKG ordered. Patient will be moved to tele for continuous cardiac monitoring, as per discussion with Dr. Grande.
[2019-04-24 07:03] LABS: Anion Gap 10 mmol/L (10-20); BUN (Urea Nitrogen) 41 mg/dL (8.4-25.7); Calc. Creatinine Clearance 24 mL/min (70-130); Carbon Dioxide 30 mmol/L (23-31); Chloride 100 mmol/L (98-107); Estimated GFR-MDRD 24; Glucose 231 mg/dL (80-115); Magnesium 1.8 mg/dL (1.6-2.6); Potassium 3.7 mmol/L (3.5-5.1); Sodium 136 mmol/L (136-145)
--- NOTE | 2019-04-24 07:47 | RAD ---
Portable frontal chest radiograph: 04/24/2019 COMPARISON: 04/23/2019 HISTORY: Reevaluate pulmonary edema FINDINGS: Stable midline sternotomy wires, pulmonary vascular congestion, perihilar and bibasilar int erstitial prominence, and bibasilar airspace disease with associated pleural effusions. IMPRESSION: Stable appearance of the chest as above.
[2019-04-24 08:01] LABS: Hemoglobin 12.7 g/dL (14.0-18.0); Mean Corpuscular Hemoglobin 29.6 pg (27.0-31.0); Mean Corpuscular Volume 89.8 fL (78.0-98.0); Mean Platelet Volume 11.3 fL (7.4-10.4); Platelet Count 119 thou/uL (130-400); RBC Distribution Width 12.7 % (11.5-14.5); Red Blood Cell (RBC) Count 4.27 mill/uL (4.70-6.10); White Blood Cell (WBC) Count 13.7 thou/uL (4.8-10.8)
[2019-04-24] MEDS: Carvedilol 6.25 MG TAB PO SCH (09:35)
[2019-04-24] MEDS: predniSONE 20 MG TAB PO SCH (09:35)
[2019-04-24] MEDS: Amiodarone 200 MG TAB PO SCH (09:35)
[2019-04-24] MEDS: Heparin 5,000 UNITS/ML VIAL SC SCH ×2 (09:36→22:33)
--- NOTE | 2019-04-24 10:01 | PRG ---
DATE OF SERVICE: 04/24/2019 SUBJECTIVE: The patient is sitting comfortably in bed, has no complaints, wants to go home. OBJECTIVE: VITAL SIGNS: Temperature 98.4, pulse 72, respirations 17, O2 saturation 93% on room air, and blood pressure 179/81. HEENT: Unremarkable. NECK: No adenopathy or JVD. LUNGS: Clear. CARDIAC: S1 and S2, regular. ABDOMEN: Soft. EXTREMITIES: Bilateral [id number] amputations. His x-ray shows no significant change. LABORATORY DATA: White blood cell count 13, hematocrit 38.4, platelet count 119. Sodium 136, potassium 3.7, BUN 41, creatinine 3.1, and glucose 231. ASSESSMENT: 1. Status post respiratory failure, requiring mechanical ventilation. 2. Acute on chronic renal failure. 3. Resolved metabolic acidosis. PLAN: From pulmonary standpoint, he is probably close to discharge. I would recommend stopping his antibiotics as he has had over 7 days of therapy. No further Pulmonary recommendations at this time. We will sign off. Job ID: [id number]
--- NOTE | 2019-04-24 10:13 | ULT ---
RIGHT UPPER EXTREMITY VNEOUS DUPLEX ULTRASOUND WITH COLOR AND SPECTRAL DOPPLER IMAGING: HISTORY: Right upper extremity swelling. FINDINGS: Exam is performed with visualization of the right internal jugular, subclavian, axillary, brachial, r adial, and ulnar veins. Basilic and cephalic veins were visualized. There is a small caliber superf icial right cephalic vein with partial flow and no evidence for overt intraluminal thrombus. The tara p venous system of the upper extremity is free of thrombus and demonstrates normal compressibility an d augmentation. IMPRESSION: No evidence for deep venous thrombus involving the veins of the right upper extremity. There is mini mal flow in a somewhat small caliber superficial right cephalic vein with partial compressibility and some flow. Minimal superficial subcutaneous edema at the level of the antecubital fossa. POS: ELPIDIO
--- NOTE | 2019-04-24 11:46 | PRG ---
DATE OF SERVICE: 04/24/2019 SUBJECTIVE: Patient was seen and examined at bedside and overnight events noted. Patient denies any shortness of breath or chest pain or palpitation. No history of nausea or vomiting or diarrhea or fever or chills or cramps. OBJECTIVE: GENERAL: This is a well-built male in no apparent distress. VITAL SIGNS: Temperature 99.4. Heart rate 72. Respiratory rate 17. Blood pressure 179/81. HEENT: Atraumatic, normocephalic. Oral mucosa is moist NECK: Supple. CARDIOVASCULAR: S1, S2 heard. Rate and rhythm regular. RESPIRATORY: Clear to auscultation. GASTROINTESTINAL: Abdomen is soft. MUSCULOSKELETAL: No tenderness. No edema. DERMATOLOGIC: No skin rash. NEUROLOGIC: Alert and awake and oriented X3. No focal neurologic deficits. Moving all the extremities. PSYCHIATRIC: Mood and affect normal. LABORATORY DATA: Potassium 3.7, BUN is 41, creatinine is 3.1. ASSESSMENT AND PLAN: 1. Acute kidney injury on chronic kidney stage 4. Labs are stable close to his baseline. 2. Chronic acidosis, better. 3. Edema. 4. Anemia of chronic disease. 5. Mild hyponatremia. 6. Leukocytosis. 7. Chronic anemia. Labs are back to baseline. From Nephrology standpoint, we will follow. Job ID: [id number]
[2019-04-24] MEDS: Insulin Regular 300 UNITS/3 ML VIAL SC PRN ×3 (11:52→22:37)
--- NOTE | 2019-04-24 16:57 | EKG ---
Test Reason : STAT Blood Pressure : / mmHG Vent. Rate : 068 BPM Atrial Rate : 068 BPM P-R Int : 196 ms QRS Dur : 104 ms QT Int : 454 ms P-R-T Axes : 073 049 100 degrees QTc Int : 482 ms Sinus rhythm with Premature atrial complexes with Abberant conduction Nonspecific ST and T wave abnormality Prolonged QT Abnormal ECG Confirmed by ARMANDO OLSON ([id number]) on 04/24/2019 4:57:18 PM Referred By: Confirmed By:ARMANDO OLSON
--- NOTE | 2019-04-24 17:58 | PDOC.HOSPP ---
- Subjective Encounter Date: 04/24/19 Encounter Time: 11:00 Subjective: The patient was bradycardic overnight. Today he has no complaints. Feels better, some chest congestion still. Cough has improved. Denies weakness in right arm - Objective Vital Signs & Weight: Vital Signs (12 hours) Temp Pulse Resp BP Pulse Ox 04/24/19 16:00 97.8 F 63 14 132/59 L 97 04/24/19 11:37 97.4 F L 72 20 136/73 95 04/24/19 09:23 93 L 04/24/19 08:01 98.4 F 72 17 179/81 H 93 L Weight Admit Weight 151 lb Weight 151 lb 7.321 oz Most Recent Monitor Data Heart Rate from ECG 72 NIBP 133/64 NIBP BP-Mean 87 Respiration from ECG 21 SpO2 92 I&O: 04/23/19 04/24/19 04/25/19 06:59 06:59 06:59 Intake Total 1154 300 600 Output Total 1900 1340 750 Balance -746 -1040 -150 Result Diagrams: 04/24/19 07:33 04/24/19 06:34 Additional Labs: Accuchecks 04/24/19 04/24/19 04/23/19 10:57 06:09 20:17 POC Glucose 197 H 228 H 263 H Hospitalist ROS - Review of Systems Constitutional: denies: fever, chills - Medication Medications: Active Medications Generic Name Dose Route Start Last Admin Trade Name Freq PRN Reason Stop Dose Admin Amiodarone HCl 200 mg 04/23/19 09:00 04/24/19 09:35 Cordarone PO 200 mg DAILY ALLEN Administration Carvedilol 6.25 mg 04/23/19 09:00 04/24/19 09:35 Coreg PO 6.25 mg BID ALLEN Administration Diltiazem HCl 60 mg 04/23/19 09:00 04/24/19 15:15 Cardizem PO 60 mg Q6H ALLEN Administration Famotidine 20 mg 04/22/19 21:00 04/23/19 20:30 Pepcid PO 20 mg HS ALLEN Administration Heparin Sodium (Porcine) 5,000 units 04/21/19 09:00 04/24/19 09:36 Heparin SC 5,000 units BID ALLEN Administration Insulin Human Regular 0 units 04/22/19 15:58 04/24/19 17:29 Humulin R SC 4 unit .MILD SLIDING PRN Administration MILD SLIDING SCALE Protocol Insulin Human Regular 0 units 04/23/19 21:03 04/23/19 21:11 Humulin R SC 3 units .BEDTIME SLIDING SC PRN Administration Bedtime Correctional Scale Rosuvastatin Calcium 10 mg 04/22/19 21:00 04/23/19 20:30 Crestor PO 10 mg HS ALLEN Administration Sodium Chloride 10 ml 04/19/19 21:00 04/24/19 09:36 Flush - Normal Saline IVF 10 ml Q12HR ALLEN Administration - Exam General Appearance: NAD, awake alert Eye: PERRL, anicteric sclera ENT: normocephalic atraumatic, no oropharyngeal lesions Neck: supple, symmetric, no JVD Heart: RRR, no murmur, no gallops, no rubs Respiratory: CTAB Respiratory - other findings: diminished breath sounds at top, clear at base Gastrointestinal: soft, non-tender, non-distended, normal bowel sounds, no palpable masses Extremities: no cyanosis, no clubbing, no edema Skin: normal turgor, no lesions, no rashes Hosp A/P - Plan Chest X ray: bilateral effusions CT brain: negative Chest Xray 04/22: bilateral effusion vs infiltrates Vascular ultrasound: no DVT rue, minimal flow in superficial right cephalic vein with partial compressibility This is a 63 year old male with past medical history of diabetes who presented with elevated blood sugar after eating grapes, was found to also be in acute renal failure and severely bradycardic requiring a pacemaker #Acute hypoxic respiratory failure - possibly pneumonia vs pulmonary edema - WBC down to 9.6. Chest Xray shows possible left sided infiltrate, repeat showed bilateral infiltrates. Blood culture shows 1/2 gram positive cocci with staph epi - vancomycin discontinued 04/22, received 5 days cefepime, discontinued 04/23 - Administered lasix 40 mg IV 04/22 and 04/23 for pulmonary edema. - extubated 04/22 - urine culture shows no growth Bradycardia- - recurred overnight, likely from restarting coreg. REduce dose to 3.125 mg bid #Acute renal failure - improving #Hyperkalemia - resolved - creatinine 3.18, hold off on additional lasix - free water per nephro Mild superficial thrombophlebitis on right - apply warm compresses Dysphagia - speech recommended pureed diet Type II diabetes - had possible DKA on admission with BS > 400 on presentation - resume mild insulin sliding scale Respiratory alkalosis - resolved Hypertension - on coreg COPD - stable Code status: full code
[2019-04-24] MEDS: Famotidine 20 MG TAB PO SCH (22:33)
[2019-04-24] MEDS: Carvedilol 3.125 MG TAB PO SCH (22:34)
[2019-04-24] MEDS: Rosuvastatin 10 MG TAB PO SCH (22:34)
[2019-04-25 05:07] LABS: Anion Gap 10 mmol/L (10-20); BUN (Urea Nitrogen) 41 mg/dL (8.4-25.7); Calc. Creatinine Clearance 27 mL/min (70-130); Calcium 7.7 mg/dL (7.8-10.44); Carbon Dioxide 26 mmol/L (23-31); Chloride 102 mmol/L (98-107); Estimated GFR-MDRD 28; Glucose 241 mg/dL (80-115); Potassium 3.4 mmol/L (3.5-5.1); Sodium 135 mmol/L (136-145)
[2019-04-25] MEDS: Heparin 5,000 UNITS/ML VIAL SC SCH (08:49)
[2019-04-25] MEDS: Carvedilol 3.125 MG TAB PO SCH (08:50)
[2019-04-25] MEDS: Amiodarone 200 MG TAB PO SCH (08:50)
[2019-04-25] MEDS: Insulin Regular 300 UNITS/3 ML VIAL SC PRN (08:51)
[2019-04-25] MEDS ORDERED: Amlodipine 5 MG TAB PO SCH (09:00)
[2019-04-25] MEDS ORDERED: Potassium Chloride 20 MEQ TAB PO SCH ×2 (09:30→09:45)
--- NOTE | 2019-04-25 12:30 | PRG ---
DATE OF SERVICE: 04/25/2019 SUBJECTIVE: Patient was seen and examined at bedside and overnight events noted. Patient denies any shortness of breath or chest pain or palpitation. No history of nausea or vomiting or diarrhea or fever or chills or cramps. OBJECTIVE: GENERAL: This is a well-built male, in no apparent distress. VITAL SIGNS: Temperature 98.4. Heart rate 61. Respiratory rate 23. Blood pressure 137/72. HEENT: Atraumatic, normocephalic. Oral mucosa is moist. NECK: Supple. CARDIOVASCULAR: S1, S2 heard. Rate and rhythm regular. RESPIRATORY: Clear to auscultation. GASTROINTESTINAL: Abdomen is soft. MUSCULOSKELETAL: No tenderness. No edema. DERMATOLOGIC: No skin rash. NEUROLOGIC: Alert and awake and oriented x3. No focal neurologic deficits. Moving all the extremities. PSYCHIATRIC: Mood and affect normal. LABORATORY DATA: Potassium 3.4, BUN is 41, creatinine is 2.7, and sodium 135. ASSESSMENT AND PLAN: 1. Acute kidney injury on chronic kidney disease, stage 4. 2. Hyponatremia. 3. Hypokalemia. Replace and monitor. 4. Edema. 5. Anemia of chronic disease. 6. Acidosis, stable. Avoid nephrotoxins. Renal function is close to his baseline. We will follow. Job ID: [id number]
[2019-04-25 15:49] VITALS: TEMP 98.2
[2019-04-25 18:14] VITALS: BP 164/81
--- NOTE | 2019-04-26 12:22 | DIS ---
DATE OF ADMISSION: 04/18/2019 DATE OF DISCHARGE: 04/25/2019 DISCHARGE DIAGNOSES: 1. Acute hypoxic respiratory failure secondary to pneumonia versus pulmonary edema. 2. Bradycardia. 3. Acute renal failure. 4. Hyperkalemia. 5. Superficial thrombophlebitis in the right arm. 6. Possible diabetic ketoacidosis. 7. Dysphagia. 8. Respiratory alkalosis. CONSULTATIONS: 1. Cardiology with Dr. Vitor Mejia. 2. Dr. Dave Duran with Nephrology. 3. Dr. Rio Robledo with Pulmonology/Critical Care. BRIEF HISTORY OF PRESENT ILLNESS: This is a 63-year-old male patient with past medical history of diabetes and COPD, who presented to the emergency room due to feeling funny. The patient had eaten 2 pounds of grapes and appeared altered and lethargic. In the ER, he was found to be hypothermic with an elevated blood sugar of 438. He was also found to be severely bradycardic with heart rate in the 20s. The patient was given epinephrine and was placed on transcutaneous pacers. He was also given IV calcium. The patient did become unresponsive and did have ACLS performed with intubation for airway protection. The patient initially had presented with a potassium level of 7.6. He was admitted to the ICU and started on empiric antibiotics. HOSPITAL COURSE: Possible DKA: The patient had presented with blood sugars in the 400s. He had an anion gap of 20 and a bicarbonate level of 16 upon presentation. The patient was briefly on an insulin drip and eventually titrated off the insulin drip. On discharge, the patient was resumed on his home glipizide of 2.5 mg p.o. daily. His blood sugars remain controlled, 150s to 200s. Possible sepsis secondary to pneumonia: The patient had presented with altered mental status. He was noted to have a lactic acid of 4.1 and a white blood cell count of 13.3 on admission. He had no fever. His chest x-ray on admission was concerning for bilateral effusions. However, given his severe acidosis, he was treated with antibiotics empirically. The patient was placed on vancomycin and cefepime. He received 5 days of cefepime, which was discontinued on the . Blood cultures showed 1/2 coag-negative staph. Urine culture was unremarkable. The patient was discharged without any antibiotics. Acute encephalopathy secondary to possible DKA versus sepsis: The patient was treated for DKA as mentioned above. He did require ventilation. After the patient was extubated, his mental status gradually improved. The patient did have a CT scan of his brain on the , which was negative for any stroke. Bradycardia: The patient did have a heart rate in the 20s on admission. This is most likely secondary to hyperkalemia. Cardiology was consulted and was following while in the hospital. He did have an echocardiogram done, which showed an EF of 50% to 55% with moderate MR and mild TR. The day prior to discharge, the patient did have some heart rates in the 40s to 50s, but he was asymptomatic. His Coreg dose was reduced to 3.125 mg b.i.d. and his diltiazem was reduced to 30 mg q.6 hours. SVT with aberrancy: The patient was noted to have some runs of SVT on 04/24 overnight. Cardiology evaluated this and did not think this was ventricular tachycardia. The patient was placed on diltiazem 60 q.6 by Cardiology, but this was reduced to 30 mg q.6 hours in light of his bradycardia. Acute hypoxic respiratory failure secondary to pneumonia versus pulmonary edema: The patient did require intubation during his hospitalization. He was eventually extubated on the . He was weaned off oxygen on discharge. He was treated with antibiotics for 5 days. He did have some pulmonary edema and did receive IV diuretics on the and the . His repeat chest x-ray on the showed bilateral pleural effusions that were mild. On exam, however, his lungs sound clear on the day of discharge, this chest x-ray can be repeated as an outpatient. Acute renal failure/hyperkalemia: The patient presented with a potassium of 7. He was hydrated with IV fluids with improvement in his kidney function. The patient did end up having some pulmonary edema and did receive Lasix for 2 doses, but further Lasix was discontinued due to slight creatinine increase to 3.18 on the . On the day of discharge, his creatinine improved to 2.77. The patient will follow up with Nephrology as an outpatient and should have his BMP repeated in a week. Mild superficial thrombophlebitis on the right colon on 04/24: Nursing staff noted that his hands were slightly cold and the patient had difficulty lifting up his right arm: There was a vascular ultrasound that was done, which showed no evidence of DVT. However, minimal superficial subcutaneous edema at the level of the antecubital fossa and partial compressibility in the superficial right cephalic vein. He was advised to place warm compresses. He did not have any significant swelling on the day of discharge. Dysphagia: The patient was seen by Speech and was started on a pureed diet. Hypertension: The patient was started on diltiazem in the hospital. He also was started on amlodipine 5 mg. He will be discharged on amlodipine, Coreg 3.125, and diltiazem 30 mg q.6 hours. He should follow up with his PCP for additional blood pressure titration. DISCHARGE PHYSICAL EXAMINATION: V VITAL SIGNS: Temperature 98.2, heart rate 62, respiratory rate 18, O2 saturation 97% on room air, and blood pressure 164/81. GENERAL: The patient is alert, awake, and oriented x3. Appears slightly fatigue. CARDIOVASCULAR: Regular rate and rhythm with no murmurs, rubs, or gallops. LUNGS: Clear to auscultation bilaterally. ABDOMEN: Positive bowel sounds. Soft, nontender, and nondistended. EXTREMITIES: The patient has bilateral BKA. PERTINENT LABORATORY DATA: CBC on 04/24: Shows a white count of 13.7, hemoglobin 12.7, and hematocrit 38.4. BMP on 04/15: Shows sodium of 135, potassium of 3.4, and creatinine of 2.77. LFTs 04/18: Shows AST of 39, ALT of 26, and alkaline phosphatase of 153. Troponin I on 04/18: 0.077, 0.062, 0.086. Lipid panel: LDL of 114, total cholesterol 177, and HDL 37. PERTINENT IMAGING DATA: CT brain on 04/18: Shows no acute intracranial abnormality. Chest x-ray on 04/18: Shows bilateral effusions. Chest x-ray on 04/24: Shows bibasilar airspace disease with associated pleural effusions. Venous ultrasound on the right arm: shows no evidence of DVT. There is minimal flow in a somewhat small caliber superficial right cephalic vein with partial compressibility and some flow. There is minimal superficial subcutaneous edema at the level of the antecubital fossa. Echocardiogram: EF 55%, grade 1/3 diastolic dysfunction. Moderate MR. Aortic valve sclerosis, but opens well. Mild TR. DISCHARGE CONDITION: Stable. ACTIVITY: As tolerated. DIET: Heart-healthy diet. DISPOSITION: Home. The patient refused any type of home health on discharge. DISCHARGE MEDICATIONS: New prescriptions: 1. Mucinex one tab p.o. q.12 hours. 2. Amlodipine 5 mg p.o. daily. 3. Coreg 3.125 mg p.o. b.i.d. 4. Diltiazem 30 mg p.o. q.6 hours. DISCHARGE INSTRUCTIONS: The patient should follow up with PCP in a week with regard to following up the blood pressure. He should also follow up with Dr. Duran in a week to have his kidney function test repeated. Consider following up with Cardiology for SVT and bradycardia. Job ID: [id number] MTDD
== END 2019-04-25 20:23 | disposition home or self-care (01) | DRG 871 ==
LOC: ERS 10:05 → CCU 15:29 → T4-A 04-23 14:13 → 2NO 04-24 05:12
PROVIDERS: ADMIT Internal Medicine; ATTEND Internal Medicine
PROC: 0BH17EZ Insertion of Endotracheal Airway into Trachea, Via Natural or Artificial Opening (ICD-10-PCS; principal; 2019-04-18)
PROC: 5A1945Z Respiratory Ventilation, 24-96 Consecutive Hours (ICD-10-PCS; 2019-04-18)
DX: A41.9 Sepsis, unspecified organism (principal); E11.10 Type 2 diabetes mellitus with ketoacidosis without coma; J18.9 Pneumonia, unspecified organism; J96.01 Acute respiratory failure with hypoxia; N17.0 Acute kidney failure with tubular necrosis; I47.1 Supraventricular tachycardia; G93.49 Other encephalopathy; J44.0 Chronic obstructive pulmonary disease with (acute) lower respiratory infection; N18.5 Chronic kidney disease, stage 5; I13.2 Hypertensive heart and chronic kidney disease with heart failure and with stage 5 chronic kidney disease, or end stage renal disease; I50.32 Chronic diastolic (congestive) heart failure; E87.2 Acidosis; E87.1 Hypo-osmolality and hyponatremia; R13.10 Dysphagia, unspecified; I80.8 Phlebitis and thrombophlebitis of other sites; E87.5 Hyperkalemia; Z89.512 Acquired absence of left leg below knee; Z89.511 Acquired absence of right leg below knee; Z95.1 Presence of aortocoronary bypass graft; Z90.49 Acquired absence of other specified parts of digestive tract; Z87.891 Personal history of nicotine dependence; I51.7 Cardiomegaly; T68.XXXA Hypothermia, initial encounter; E78.5 Hyperlipidemia, unspecified; I25.10 Atherosclerotic heart disease of native coronary artery without angina pectoris; E11.51 Type 2 diabetes mellitus with diabetic peripheral angiopathy without gangrene; E11.22 Type 2 diabetes mellitus with diabetic chronic kidney disease; Z91.14 Patient's other noncompliance with medication regimen; E87.6 Hypokalemia
CPT/HCPCS: 31500; 36415; 36416; 36556; 36680; 51702; 70450; 71045; 76770; 80048; 80053; 80061; 80202; 80306; 81003; 81015; 82550; 82553; 82805; 83605; 83735; 84484; 85025; 85027; 87040; 87086; 87149; 92953; 93005; 93010; 93306; 94002; 94003; 96365; 96366; 96367; 96368; 96374; 96375; 96376; J0171; J0461; J0692; J1644; J1815; J1940; J2250; J2405; J2704; J2920; J3010; J3370; J3490; J7050; J7070; J7512; S0028

== ENCOUNTER 2019-05-02 16:59 | Emergency (ER) | payer OTHER ==
--- NOTE | 2019-05-02 20:34 | RAD ---
EXAM: XR Chest 1 View Portable PROVIDED CLINICAL HISTORY: Cough COMPARISON: 04/24/2019 FINDINGS: Cardiac and mediastinal silhouettes unchanged in appearance. Median sternotomy changes and atheroscle rosis are redemonstrated. Bibasilar pleural-parenchymal opacities persist, similar to prior. IMPRESSION: Persistent bibasilar pleural/parenchymal opacities
== END 2019-05-02 21:15 | disposition home or self-care (01) ==
LOC: ERS 16:59
DX: J10.1 Influenza due to other identified influenza virus with other respiratory manifestations (principal); I11.0 Hypertensive heart disease with heart failure; I50.9 Heart failure, unspecified; E11.9 Type 2 diabetes mellitus without complications; E78.5 Hyperlipidemia, unspecified; Z87.891 Personal history of nicotine dependence; Z71.6 Tobacco abuse counseling
CPT/HCPCS: 71045; 87804; 99406

== ENCOUNTER 2019-07-14 09:11 | Emergency (ER) | payer OTHER ==
--- NOTE | 2019-07-14 09:40 | RAD ---
EXAM: CHEST ONE VIEW HISTORY: Hypertension. Elevated blood pressure. Patient has been sleepy for last few days. 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 Bibasilar pleural and parenchymal lung changes are again seen which may represent bilateral pleural effusions and atelectasis. Superimposed infiltrate/pneumonia is a possibility. Pleural effusion on the right has increased. Pulmonary vascula ture is within normal limits. Vascular calcifications are seen in the thoracic aorta. No other interval change. IMPRESSION: Persistent bibasilar pleural and parenchymal opacities probably related to bilateral pleural effusion s and atelectasis. Superimposed infiltrate/pneumonia at either lung base cannot be excluded. Pleural effusion on the right has mildly increased from prior study.
[2019-07-14] MEDS ORDERED: Labetalol HCl 100 MG/20 ML VIAL ONE (09:54)
[2019-07-14 10:06] LABS: #Eosinphils 0.3 thou/uL (0.0-0.7); #Lymphocytes 1.8 thou/uL (1.20-3.40); #Monocytes 0.8 thou/uL (0.11-0.59); #Neutrophils 6.3 thou/uL (1.40-6.50); %Basophils 0.5 % (0.0-1.0); %Eosinophils 2.8 % (0.0-10.0); %Lymphocytes 19.5 % (21.0-51.0); %Monocytes 8.5 % (0.0-10.0); %Neutrophils 68.7 % (42.0-75.0); Hemoglobin 14.5 g/dL (14.0-18.0); Mean Corpuscular HGB CONC 30.7 g/dL (32.0-36.0); Mean Corpuscular Hemoglobin 28.6 pg (27.0-31.0); Mean Corpuscular Volume 92.9 fL (78.0-98.0); Mean Platelet Volume 10.2 fL (7.4-10.4); Platelet Count 172 thou/uL (130-400); RBC Distribution Width 13.8 % (11.5-14.5); Red Blood Cell (RBC) Count 5.06 mill/uL (4.70-6.10); White Blood Cell (WBC) Count 9.2 thou/uL (4.8-10.8)
[2019-07-14 10:24] LABS: ALT (SGPT) 12 U/L (8-55); AST (SGOT) 18 U/L (5-34); Albumin 3.6 g/dL (3.4-4.8); Alkaline Phosphatase 126 U/L (40-110); Anion Gap 16 mmol/L (10-20); BUN (Urea Nitrogen) 26 mg/dL (8.4-25.7); Bilirubin, Total 0.9 mg/dL (0.2-1.2); CK (CPK) 46 U/L (30-200); Calc. Creatinine Clearance 0 mL/min (70-130); Calcium 8.9 mg/dL (7.8-10.44); Carbon Dioxide 16 mmol/L (23-31); Chloride 108 mmol/L (98-107); Estimated GFR-MDRD 30; Globulin 3.3 g/dL (2.4-3.5); Glucose 69 mg/dL (80-115); Potassium 4.4 mmol/L (3.5-5.1); Protein, Total 6.9 g/dL (5.8-8.1); Sodium 136 mmol/L (136-145)
[2019-07-14 14:42] LABS: Troponin I 0.093 ng/mL (< 0.028)
[2019-07-15 11:36] LABS: SARS-CoV-2 MS2 Positive; SARS-CoV-2 N Gene Negative; SARS-CoV-2 S Gene Negative; SARS-CoV-2 orf1ab Negative
== END 2019-07-14 16:25 | disposition home or self-care (01) ==
LOC: ERS 09:11
DX: R53.1 Weakness (principal); R53.83 Other fatigue; I11.0 Hypertensive heart disease with heart failure; I50.9 Heart failure, unspecified; E11.9 Type 2 diabetes mellitus without complications; E78.5 Hyperlipidemia, unspecified; Z87.891 Personal history of nicotine dependence; Z79.899 Other long term (current) drug therapy; Z20.828 Contact with and (suspected) exposure to other viral communicable diseases
CPT/HCPCS: 36415; 71045; 80053; 82550; 82553; 84484; 85025; 87635; 93005; 96361; 96374; U0003

== ENCOUNTER 2019-12-09 09:42 | Inpatient (IN) | payer OTHER ==
[2019-12-09] MEDS ORDERED: Aspirin Chewable 81 MG TAB ONE (10:04)
[2019-12-09] MEDS ORDERED: Nitroglycerin 2% Ointment 1 INCH/1 GM Packet ONE (10:13)
[2019-12-09] MEDS ORDERED: Furosemide 40 MG/4 ML VIAL ONE (10:13)
[2019-12-09 10:21] LABS: #Basophils 0.1 thou/uL (0.0-0.2); #Eosinphils 0.2 thou/uL (0.0-0.7); #Lymphocytes 1.5 thou/uL (1.20-3.40); #Monocytes 0.7 thou/uL (0.11-0.59); #Neutrophils 5.4 thou/uL (1.40-6.50); %Basophils 1.1 % (0.0-1.0); %Eosinophils 3.1 % (0.0-10.0); %Lymphocytes 18.5 % (21.0-51.0); %Monocytes 9.3 % (0.0-10.0); Hemoglobin 14.8 g/dL (14.0-18.0); Mean Corpuscular HGB CONC 32.5 g/dL (32.0-36.0); Mean Corpuscular Hemoglobin 29.5 pg (27.0-31.0); Mean Corpuscular Volume 90.5 fL (78.0-98.0); Platelet Count 153 thou/uL (130-400); Red Blood Cell (RBC) Count 5.04 mill/uL (4.70-6.10)
--- NOTE | 2019-12-09 10:34 | RAD ---
CHEST 1 VIEW PORTABLE: Date: 12/09/2019 HISTORY: Dyspnea. COPD. Congestive heart failure exacerbation. COMPARISON: 07/14/2019. FINDINGS: There is bilateral vascular congestion and increasing bilateral pleural effusions from the prior stud y. Postop midline sternotomy. IMPRESSION: Worsening congestion and bilateral pleural effusions from the prior study, evidence for worsening con gestive heart failure. POS: RRE
[2019-12-09 10:42] LABS: ALT (SGPT) 9 U/L (8-55); AST (SGOT) 20 U/L (5-34); Albumin 3.3 g/dL (3.4-4.8); Alkaline Phosphatase 123 U/L (40-110); Anion Gap 16 mmol/L (10-20); BUN (Urea Nitrogen) 29 mg/dL (8.4-25.7); Bilirubin, Total 0.7 mg/dL (0.2-1.2); CK (CPK) 101 U/L (30-200); Calc. Creatinine Clearance 0 mL/min (70-130); Calcium 8.2 mg/dL (7.8-10.44); Carbon Dioxide 16 mmol/L (23-31); Chloride 108 mmol/L (98-107); Estimated GFR-MDRD 17; Glucose 104 mg/dL (80-115); Lipase 9 U/L (8-78); Protein, Total 6.3 g/dL (5.8-8.1); Sodium 136 mmol/L (136-145)
[2019-12-09 11:05] LABS: CKMB 4.6 ng/mL (0-6.6)
[2019-12-09] MEDS ORDERED: Nitroglycerin 0.4 MG TAB 1 EACH ONE (11:23)
--- NOTE | 2019-12-09 11:40 | PDOC.FPRHP ---
- History of Present Illness Chief Complaint: SOB History of Present Illness: 64 yo M with PMH of COPD, CHF, HTN, DMII, HLD presenting for SOB and productive cough of 4 day duration. Cough is productive of clear mucous and he describes trouble catching his breath. He denies any fever, chills, palpitations,headache, congestion, orthopnea, or CP. Mr. Calderon has been out of all his medication for 1 month. He states this feels like "the last time he was full of fluid." ED Course: sublingual nitro, nitro patch, lasix, aspirin, diltiazem - Allergies/Adverse Reactions Allergies Allergy/AdvReac Type Severity Reaction Status Date / Time No Known Allergies Allergy Verified 05/24/19 15:36 - Home Medications Medication Instructions Recorded Confirmed Type Pregabalin [Lyrica] 200 mg PO BID 11/20/18 12/09/19 History glipiZIDE [glipiZIDE ER] 2.5 mg PO DAILY-AC 11/20/18 04/18/19 History Nicotine [Nicoderm CQ] 21 mg TD DAILY patch 11/22/18 12/09/19 Rx Amiodarone [Cordarone] 200 mg PO DAILY 03/07/19 12/09/19 History Amitriptyline HCl [Elavil] 25 mg PO HS 03/07/19 12/09/19 History Budesonide-Formoterol [Symbicort 2 puff INH BID 03/07/19 12/09/19 History 160-4.5] Ferrous Sulfate [Iron] 325 mg PO DAILY 03/07/19 12/09/19 History Ipratropium/Albuterol Sulfate 3 ml NEB QID 03/07/19 12/09/19 History [DuoNeb] Amlodipine [Norvasc] 5 mg PO DAILY #30 tab 04/25/19 12/09/19 Rx Carvedilol [Coreg] 3.125 mg PO BID #60 tab 04/25/19 12/09/19 Rx Diltiazem HCl 30 mg PO Q6H #120 tablet 04/25/19 12/09/19 Rx Furosemide [Lasix] 40 mg PO DAILY PRN #30 tab 04/25/19 12/09/19 Rx guaiFENesin/DM ER [Mucinex DM] 1 tab PO Q12HR #24 tab 04/25/19 12/09/19 Rx Rosuvastatin [Crestor] 20 mg PO HS 12/09/19 12/09/19 History - History PMHx: COPD, CHF, HTN, DMII, HLD PSHx: b/l AKA FHx: Dad-lung cancer Social: 1/2 PPD, social alcohol use, daily marijuana use, denies any other drug use - Review of Systems General: denies: fever/chills ENT: denies: nasal congestion Respiratory: reports: cough, shortness of breath. denies: congestion Cardiovascular: reports: orthopnea. denies: chest pain, palpitation, edema Gastrointestinal: denies: nausea, vomiting, abdominal pain Genitourinary: denies: dysuria - Vital signs BP: 182/139 HR: 113 RR: 26 Pox: 99% on RA Wt: 61kg - Physical Exam Constitutional: NAD HEENT: normocephalic and atraumatic, EOMI, no scleral icterus, grossly normal vision, grossly normal hearing, MMM Neck: FROM Heart: no edema -Heart: irregular rate and rhythm Lungs: no rales/rhonchi, no wheezing -Lungs: decreased air movement -Abdomen: ventral hernia -Musculoskeletal: bilateral AKA Psychiatric: normal mood and affect, good judgment and insight, intact recent and remote memory FMR H&P: Results - Labs Result Diagrams: 12/09/19 10:10 12/09/19 10:10 Lab results: WBC 8.0 thou/uL (4.8-10.8) 12/09/19 10:10 Hgb 14.8 g/dL (14.0-18.0) 12/09/19 10:10 Hct 45.6 % (42.0-52.0) 12/09/19 10:10 MCV 90.5 fL (78.0-98.0) 12/09/19 10:10 Plt Count 153 thou/uL (130-400) 12/09/19 10:10 Neutrophils % 68.0 % (42.0-75.0) 12/09/19 10:10 Sodium 136 mmol/L (136-145) 12/09/19 10:10 Potassium 4.0 mmol/L (3.5-5.1) 12/09/19 10:10 Chloride 108 mmol/L (98-107) H 12/09/19 10:10 Carbon Dioxide 16 mmol/L (23-31) L 12/09/19 10:10 BUN 29 mg/dL (8.4-25.7) H 12/09/19 10:10 Creatinine 4.38 mg/dL (0.7-1.3) H 12/09/19 10:10 Glucose 104 mg/dL (80-115) 12/09/19 10:10 Calcium 8.2 mg/dL (7.8-10.44) 12/09/19 10:10 Total Bilirubin 0.7 mg/dL (0.2-1.2) 12/09/19 10:10 AST 20 U/L (5-34) 12/09/19 10:10 ALT 9 U/L (8-55) 12/09/19 10:10 Alkaline Phosphatase 123 U/L (40-110) H 12/09/19 10:10 Creatine Kinase 101 U/L (30-200) 12/09/19 10:10 CK-MB (CK-2) 4.6 ng/mL (0-6.6) 12/09/19 10:10 B-Natriuretic Peptide 1164.4 pg/mL (0-100) H 12/09/19 10:10 Serum Total Protein 6.3 g/dL (5.8-8.1) 12/09/19 10:10 Albumin 3.3 g/dL (3.4-4.8) L 12/09/19 10:10 Lipase 9 U/L (8-78) 12/09/19 10:10 - EKG Interpretation EKG: A fib w/ RVR, pulse of 116 - Radiology Interpretation Chest x-ray Status: image reviewed by me, report reviewed by me (worsening congestion, bilateral pulmonary edema) FMR H&P: A/P - Problem List (1) COPD exacerbation Current Visit: Yes Status: Acute Code(s): J44.1 - CHRONIC OBSTRUCTIVE PULMONARY DISEASE W (ACUTE) EXACERBATION (2) Acute exacerbation of CHF (congestive heart failure) Current Visit: Yes Status: Acute Code(s): I50.9 - HEART FAILURE, UNSPECIFIED (3) Acute on chronic renal failure Current Visit: Yes Status: Acute Code(s): N17.9 - ACUTE KIDNEY FAILURE, UNSPECIFIED; N18.9 - CHRONIC KIDNEY DISEASE, UNSPECIFIED (4) Elevated troponin Current Visit: Yes Status: Acute Code(s): R74.8 - ABNORMAL LEVELS OF OTHER SERUM ENZYMES (5) Pulmonary edema with congestive heart failure Current Visit: Yes Status: Acute Code(s): I50.1 - LEFT VENTRICULAR FAILURE, UNSPECIFIED (6) CKD (chronic kidney disease) stage 3, GFR 30-59 ml/min Current Visit: No Status: Chronic Code(s): N18.3 - CHRONIC KIDNEY DISEASE, STAGE 3 (MODERATE) * DO NOT USE * Comment: stable (7) DM2 (diabetes mellitus, type 2) Current Visit: No Status: Chronic Comment: (8) HLD (hyperlipidemia) Current Visit: No Status: Chronic Code(s): E78.5 - HYPERLIPIDEMIA, UNSPECIFI ED Qualifiers: (9) HTN (hypertension) Current Visit: No Status: Chronic Code(s): I10 - ESSENTIAL (PRIMARY) HYPERTENSION (10) Tobacco abuse Current Visit: No Status: Chronic Code(s): Z72.0 - TOBACCO USE - Plan 54 yo M with history of COPD, CHF, HTN, DMII presenting for worsening productive cough and SOB of 4 day duration COPD exacerbation Out of medication for one month. SOB and productive cough for 4 days. Currently oxygenating well on RA. -Duonebs, prednisone -Procal, pending results will consider azithromycin therapy HF exacerbation -BNP 1164 -CXR: worsening congestion and b/l pulmonary edema -received 40mg IV lasix in ED -strict I/Os -daily weights -consider further diuresis. Will be conservative due to kidney function. Afib w/RVR -Received diltiazem in ED -Admit to tele -Continue to monitor Hypertensive Urgency -BP 182/139 in ED -restart home medications HLD - aware, restart home medication DMII -mild SSI -CC diet Nicotine dependance -Nicotine patch WILLIS -Cr 4.38, baseline ~3.5 -Encourage PO fluids -Will monitor closely while diuresing PCP: CORRIE Torres) Code: FULL Diet: CC 1999 DVTPPx: lovenox 30mg Dispo: eLOS >48hrs. Discharge pending rate control and improvement of symptoms. FMR H&P: Upper Level - Pertinent history Patient is a 64 y/o male with PMH significant for A-Fib, CHF, COPD and Tobacco Abuse who presents to the ED for evaluation of worsening SOB a nd cough. Patient states that he has not taken any of his medications for ~1M, but that these symptoms have only been present for ~4D. Patient states that he has continued abuse tobacco during this time, as well as MJ "when he can get it", but denies any chest pain, feelings of palpitations, syncopal episodes, fevers, chills, LE edema, recent N/V/D/C or ABD pain, dysuria, bloody stools, recent travel or known sick contacts. - Pertinent findings ED Course: Trops: 0.154 > 0.156 BNP: 1164 Cr: 4.38 Lipase: 9 Procal: 0.11 CXR: Bilateral pleural effusions, consistent with vascular congestion. EKG: A-Fib w/ RVR (Rate: 114) Physical Exam: HR(104) BP(182/132) O2(97% - Room Air) HENT: NCAT, PERRLA, no septal deviation, moist mucous membranes, no tracheal deviation. Cardio: Irregularrly Irregular w/o M/C/G/R Resp: Poor Air Movement - Lungs otherwise clear w/o W/R/Rh ABD: Protuberant with large umbilical hernia, NBS w/o TTP Extremities: Bilateral AKAs w/o dependent edema - Plan Date/Time: 12/09/19 1140 Patient is a 64 y/o male with a complex PMH most notable for A- Fib, COPD and CHF who presents for evaluation of worsening cough and SOB. 1. COPD Exacerbation vs. CHF Exacerbation 2/2 A-Fib w/ RVR -Patient admits to a medication holiday of ~1M - most likely contributing factor to present chief complaint -Current clinical picture appears to be multifactorial, with notable labs and Physical Exam findings listed above -Will administer Prednisone 40 mg PO daily as well as DuoNebs and supplemental O2 PRN for possible CHF Exacerbation -Patient was administered Furosemide x1 in the ED for possible CHF Exacerbation - will monitor I&Os and Daily Weights to evaluate for effectiveness of diuresis -Patient was administered Diltiazem 20 mg IV in the ED for A-Fib w/ RVR - will initiate home medication regimen for rate control with target HR of < 110 BPM 2. Hypertensive Urgency -BP: 182/ 139 in the ED -Will restart patient's home medication regimen and monitor closely - will augment with additional PRN antihypertensives as needed 3. WILLIS on CKD -Cr: 4.38 - baseline appears to be ~3.5 -Will monitor fluid status closely following diuresis and avoid nephrotoxic agents when possible 3. DM2 -Will restart patient's home medication regimen -Mild SSI -Hypoglycemia Protocol 4. HLD -Will restart patient's home medication regimen 5. Nicotine Dependence -Patient currently smoke 0.5 PPD - down from 1 PPD -Will summer counselor on the importance of Tobacco Abuse Cessation -Nicotine Patch 14 mg Daily 6. MJ Abuse -Patient endorses a strong Hx of MJ abuse but denies abuse of other drugs that may be contributing to his current clinical picture such as Methamphetamines, Cocaine or Opiates -Will summer counselor on the importance of MJ Abuse Cessation PCP: CORRIE Torres) Code: FULL Diet: CC Activity: Bedrest VTE PPx: Lovenox 30 mg SC Daily GI PPx: None Dispo: Patient is currently stable and admitted to the Telemetry Floor for further evaluation and treatment of likely COPD Exacerbation / CHF Exacerbation 2/2 A-Fib w/ RVR. Will initiate treatment with Prednisone, DuoNebs and PRN O2 as per above, while also obtaining rate control < 110 BPM as per above and monitor ongoing fluid diuresis. Expected LOS > 48H. I, [Nash Morales MD ], have evaluated this patient and agree with f indings/plan as outlined by collector of internal revenue resident. Pertinent changes/additions are listed here. Addendum - Attending - Attending Attestation Date/Time: 12/09/19 [id number] I personally evaluated the patient and discussed the management with Dr. Saucedo/Andrew. I agree with the History, Examination, Assessment and Plan documented above with any addition or exceptions noted below. Patient with med noncompliance and numerous chronic conditions here with s hortness of breath, cough, and Afib RVR. He appears to be in a state of volume overload related to Afib RVR (chronic HFpEF) and also in WILLIS on CKD4. XR c/w pulmonary vascular congestion. LE with edema. This appears to be a new onset Afib. He will be started on Dilt gtt, likely cardiology consult. Mild diuresis but monitor renal function closely.
[2019-12-09] MEDS ORDERED: Diltiazem 125 MG/25 ML ONE (11:44)
[2019-12-09] MEDS ORDERED: Ondansetron ODT 4 MG TAB PO PRN (11:59)
[2019-12-09] MEDS ORDERED: Ondansetron PF 4 MG/2 ML Vial IVP PRN (11:59)
[2019-12-09] MEDS ORDERED: Acetaminophen 325 MG TAB PO PRN (11:59)
[2019-12-09] MEDS ORDERED: Dextrose 5% in Water 1,000 ML IV PRN (12:14)
[2019-12-09] MEDS ORDERED: Dextrose 50% Abboject 50 ML SYRINGE SLOW IVP PRN (12:14)
[2019-12-09] MEDS ORDERED: Enoxaparin Sodium 60 MG/0.6 ML SYRINGE ONE (12:33)
[2019-12-09] MEDS: Nicotine 14 MG PATCH TD SCH (13:33)
[2019-12-09] MEDS ORDERED: Furosemide 40 MG/4 ML VIAL SLOW IVP SCH (14:00)
[2019-12-09 14:18] LABS: Troponin I 0.156 ng/mL (< 0.028)
[2019-12-09 17:20] LABS: Troponin I 0.161 ng/mL (< 0.028)
[2019-12-09] MEDS ORDERED: Nitroglycerin 2% Ointment 1 INCH/1 GM Packet TOP SCH (18:00)
[2019-12-09] MEDS: Albuterol 200 PUFF (6.7GM INHALER) INH SCH (20:31)
[2019-12-09] MEDS: guaiFENesin/DM ER PO SCH (20:34)
[2019-12-09] MEDS: Pregabalin 50 MG CAP PO SCH (20:34)
[2019-12-09] MEDS: Rosuvastatin 20 MG TAB PO SCH (20:35)
[2019-12-09] MEDS: Amitriptyline HCl 25 MG TAB PO SCH (20:35)
[2019-12-09 20:42] LABS: Troponin I 0.155 ng/mL (< 0.028)
[2019-12-09] MEDS ORDERED: Carvedilol 3.125 MG TAB PO SCH (21:00)
[2019-12-09 23:30] LABS: Hemoglobin A1c 5.6 % (4.0-6.0)
[2019-12-10] MEDS: Albuterol 200 PUFF (6.7GM INHALER) INH SCH ×2 (02:44→06:10)
[2019-12-10 04:11] LABS: #Eosinphils 0.3 thou/uL (0.0-0.7); #Lymphocytes 1.4 thou/uL (1.20-3.40); #Monocytes 0.6 thou/uL (0.11-0.59); #Neutrophils 4.1 thou/uL (1.40-6.50); %Basophils 0.6 % (0.0-1.0); %Eosinophils 4.2 % (0.0-10.0); %Lymphocytes 21.6 % (21.0-51.0); %Monocytes 9.5 % (0.0-10.0); Hemoglobin 12.7 g/dL (14.0-18.0); Mean Corpuscular HGB CONC 33.2 g/dL (32.0-36.0); Mean Corpuscular Hemoglobin 29.9 pg (27.0-31.0); Mean Corpuscular Volume 90.1 fL (78.0-98.0); Mean Platelet Volume 11.3 fL (7.4-10.4); Platelet Count 141 thou/uL (130-400); RBC Distribution Width 13.9 % (11.5-14.5); Red Blood Cell (RBC) Count 4.24 mill/uL (4.70-6.10); White Blood Cell (WBC) Count 6.5 thou/uL (4.8-10.8)
[2019-12-10 04:31] LABS: Anion Gap 16 mmol/L (10-20); BUN (Urea Nitrogen) 32 mg/dL (8.4-25.7); Calc. Creatinine Clearance 15 mL/min (70-130); Calcium 7.9 mg/dL (7.8-10.44); Carbon Dioxide 16 mmol/L (23-31); Chloride 108 mmol/L (98-107); Estimated GFR-MDRD 16; Glucose 89 mg/dL (80-115); Potassium 3.6 mmol/L (3.5-5.1); Sodium 136 mmol/L (136-145)
[2019-12-10 06:02] LABS: Magnesium 1.8 mg/dL (1.6-2.6); Phosphorus 3.4 mg/dL (2.3-4.7)
--- NOTE | 2019-12-10 06:24 | PDOC.FM ---
- Subjective Subjective: Mr. Calderon reports some improvement in his SOB of breath this AM. He does complain of intermittent pressure in the center of his chest. He denies any N/V or diaphoresis. - Objective Vital Signs & Weight: Vital Signs (12 hours) Temp Pulse Resp BP Pulse Ox 12/10/19 04:00 97.8 F 97 26 H 173/82 H 97 12/10/19 02:07 96 12/09/19 22:40 87 167/91 H 12/09/19 20:01 96 12/09/19 19:58 98.3 F 100 20 178/108 H 96 Weight Weight 59.829 kg I&O: 12/08/19 12/09/19 12/10/19 06:59 06:59 06:59 Intake Total 480 Output Total 850 Balance -370 Result Diagrams: 12/10/19 03:46 12/10/19 03:46 Additional Labs: Mg - 1.8, Phos 3.4, A1c: 5.6 EKG Reviewed by me: Yes (tele: 5 beats of Vtach, PACs) Phys Exam - Physical Examination Constitutional: NAD HEENT: moist MMs, sclera anicteric Neck: full ROM Respiratory: no wheezing, no rales increased movement from yesterday Cardiovascular: RRR, no significant murmur Gastrointestinal: non-tender ventral hernia Musculoskeletal: no edema b/l AKAs Neurological: non-focal Psychiatric: normal affect, A&O x 3 Dx/Plan (1) COPD exacerbation Code(s): J44.1 - CHRONIC OBSTRUCTIVE PULMONARY DISEASE W (ACUTE) EXACERBATION Status: Acute (2) Acute exacerbation of CHF (congestive heart failure) Code(s): I50.9 - HEART FAILURE, UNSPECIFIED Status: Acute (3) Acute on chronic renal failure Code(s): N17.9 - ACUTE KIDNEY FAILURE, UNSPECIFIED; N18.9 - CHRONIC KIDNEY DISEASE, UNSPECIFIED Status: Acute (4) Elevated troponin Code(s): R74.8 - ABNORMAL LEVELS OF OTHER SERUM ENZYMES Status: Acute (5) Pulmonary edema with congestive heart failure Code(s): I50.1 - LEFT VENTRICULAR FAILURE, UNSPECIFIED Status: Acute (6) CKD (chronic kidney disease) stage 3, GFR 30-59 ml/min Code(s): N18.3 - CHRONIC KIDNEY DISEASE, STAGE 3 (MODERATE) * DO NOT USE * Status: Chronic (7) DM2 (diabetes mellitus, type 2) Status: Chronic (8) HLD (hyperlipidemia) Code(s): E78.5 - HYPERLIPIDEMIA, UNSPECIFIED Status: Chronic Qualifiers: (9) HTN (hypertension) Code(s): I10 - ESSENTIAL (PRIMARY) HYPERTENSION Status: Chronic (10) Tobacco abuse Code(s): Z72.0 - TOBACCO USE Status: Chronic - Plan Plan: 54 yo M with history of COPD, CHF, HTN, DMII presenting for worsening productive cough and SOB of 4 day duration COPD exacerbation Out of medication for one month. SOB and productive cough for 4 days. Currently oxygenating well on RA. -Duonebs, prednisone. Was switched to albuterol possible due to pending COVID? Restarted duonebs this AM. -Procal wnl, mild exacerbation and azithromycin not indicated at this time HF exacerbation -BNP 1164 -CXR: worsening congestion and b/l pulmonary edema -received 40mg IV lasix in ED -1400mL output since admission -strict I/Os -daily weights -consider further diuresis. Will be conservative due to kidney function. -Consider cardiology consult today. Afib w/RVR -Received diltiazem in ED -Admit to tele: 5 beats of Vtach, PACs through night. HR at goal of <110. -Mg, Phos wnl -Restart home diltiazem this AM. -Continue to monitor -No documentation of previous diagnosis but patient reports he has known Afib and is on amiodarone and diltiazem at home. Elevated troponins -0.154, 0.156, 0.161, 0.155 -no ST changes on EKG -Complains of intermittent pressure in center of chest. Consider cardiology consult today. WILLIS on CKD -Cr 4.38 on admission, baseline ~3.5. Increased to 4.4 this AM. -GFR 16, baseline 25-30 -Encourage PO fluids -Will monitor closely while diuresing Hypertensive Urgency -BP 182/139 in ED. 173/82 most recently. -Continue home medications HLD - aware, restart home medication DMII -A1c 5.6 -mild SSI -CC diet Nicotine dependance -Nicotine patch Marijuana use disorder -Reports daily use -Smoking cessation education PCP: CORRIE Torres) Code: FULL Diet: CC 1999 DVTPPx: lovenox 30mg Dispo: eLOS >48hrs. Discharge pending rate control and improvement of symptoms. Addendum - Attending - Attending Attestation Date/Time: 12/10/19 4503 I personally evaluated the patient and discussed the management with Dr. Saucedo. I agree with the History, Examination, Assessment and Plan documented above with any addition or exceptions noted below. Patient continues to have runs of RVR. He had Diltiazem ordered yesterday but for some reason that was never started by nursing staff. He continues to be in Afib. Restarting Dilt, Coreg, Amiodarone. Cardiology consult as this appears as new diagnosis of Afib. Patient renal function continues to be CKD4 with some acidosis, making mild diuresis difficult. Nephro consult. BP control.
[2019-12-10] MEDS: Pregabalin 50 MG CAP PO SCH ×2 (08:45→21:23)
[2019-12-10] MEDS: predniSONE 20 MG TAB PO SCH (08:46)
[2019-12-10] MEDS: guaiFENesin/DM ER PO SCH ×2 (08:46→21:23)
[2019-12-10] MEDS: Ferrous Sulfate 325 MG TAB PO SCH (08:46)
[2019-12-10] MEDS: Amlodipine 5 MG TAB PO SCH (08:46)
[2019-12-10] MEDS: Carvedilol 3.125 MG TAB PO SCH ×2 (08:46→21:23)
[2019-12-10] MEDS ORDERED: FLU VACC QS2020-21(6MOS UP)/PF 60 MCG/0.5 ML SYRINGE IM ONE (09:00)
[2019-12-10] MEDS ORDERED: Enoxaparin Sodium 30 MG/0.3 ML SYRINGE SC SCH (09:00)
[2019-12-10] MEDS ORDERED: Amiodarone 200 MG TAB PO SCH (11:00)
[2019-12-10] MEDS ORDERED: Metolazone 2.5 MG TAB PO SCH (11:45)
[2019-12-10 11:56] LABS: SARS-CoV-2 MS2 Positive; SARS-CoV-2 N Gene Negative; SARS-CoV-2 S Gene Negative; SARS-CoV-2 by NAA Not Detected (NotDetected); SARS-CoV-2 orf1ab Negative
[2019-12-10] MEDS: Nicotine 14 MG PATCH TD SCH (12:14)
[2019-12-10] MEDS: Diltiazem 125 MG in Sodium Chloride 0.9% 100 ML IVPB SCH (12:14)
--- NOTE | 2019-12-10 12:20 | CON ---
DATE OF CONSULTATION: REASON FOR CONSULTATION: Edema, congestive heart failure, and acute kidney injury. HISTORY OF PRESENT ILLNESS: A very pleasant 64-year-old gentleman presented to the hospital yesterday with worsening creatinine and increasing shortness of breath. The patient's creatinine was 2.6 in July, which has increased to 4.3 yesterday and 4.4 today. The patient had worsening edema on chest x-ray. The patient complains of dyspnea at rest. PAST MEDICAL HISTORY: COPD, hypertension, diabetes mellitus, bilateral lower AKA. SOCIAL HISTORY: The patient smokes and marijuana use. ALLERGIES: REVIEWED. HOME MEDICATION: List reviewed. HOSPITAL MEDICATION: List reviewed. FAMILY HISTORY: Negative for ESRD. ALLERGIES: REVIEWED. REVIEW OF SYSTEMS: 15-point review of system was performed negative except for positives noted above. HEENT: Eyes intact, no diplopia. Ears: No hearing loss or earache. Nose: No discharge or bleeding. CHEST: No cough or phlegm. ABDOMEN: No nausea or vomiting. GENITOURINARY: No hematuria. No Weinberg catheter. MUSCULOSKELETAL: No low back pain. No joint swelling or pain. NEUROLOGICAL: No syncope. No seizures. SKIN: No complaints of rash or itching. PSYCHIATRIC: No depression. CONSTITUTIONAL: No weight loss or loss of appetite. PHYSICAL EXAMINATION: GENERAL: Patient is awake and alert. VITAL SIGNS: Pulse 94, breathing 16, blood pressure 166/103. HEENT: Head normocephalic and atraumatic. Eyes intact, no ulcers. Nose intact, no ulcers. Ears intact, no ulcers. NECK: Supple. No JVD. CHEST: Symmetrical and clear. CARDIOVASCULAR: Shows S1 and S2, no rub, no murmur. GASTROINTESTINAL: Abdomen is soft, bowel sounds positive. EXTREMITIES: Show no edema or ulcers. SKIN: Shows no rash or petechiae. MUSCULOSKELETAL: Shows no joint swelling or stiffness. GENITOURINARY: Shows no Weinberg or CVA tenderness. NEUROLOGIC: Motor intact. Cranial nerves intact. LABORATORY DATA: Reviewed. IMPRESSION: 1. Acute kidney injury with chronic kidney disease stage 4 with worsening edema and congestive heart failure. Start the patient on Zaroxolyn in addition to Lasix IV. The patient's Lasix IV can also be increased to 80 b.i.d. if no response is initiated. If pulmonary edema does not get better, then we will consider renal replacement therapy. No urgent indication for dialysis. 2. Hypertension. Plan diuresis. 3. Metabolic acidosis. Medication based on GFR. Avoid enoxaparin. No indication for dialysis. We will follow . Job ID: [id number]
[2019-12-10] MEDS ORDERED: PROVENTIL INHALER 6.7 G (200 INHALATIONS) INH SCH (13:00)
[2019-12-10] MEDS: HumaLOG 300 UNITS/3 ML VIAL SC PRN (18:18)
[2019-12-10] MEDS: Rosuvastatin 20 MG TAB PO SCH (21:23)
[2019-12-10] MEDS: Amitriptyline HCl 25 MG TAB PO SCH (21:23)
--- NOTE | 2019-12-10 23:00 | CON ---
DATE OF CONSULTATION: 12/10/2019 INDICATION FOR CONSULTATION: A 64-year-old patient with a long cardiac history who was admitted with CHF exacerbation. HISTORY OF PRESENT ILLNESS: This is a very unfortunate 64-year-old gentleman has been seen by Dr. Morales in the past. He most recently was seen I believe last [address] Morales. He has actually been in the hospital here back in April, I believe also of this year. He has had history in the past of congestive heart failure. He has history of coronary artery disease. He has undergone bypass surgery. There is extensive history by Dr. Morales. Please review these records. I have placed him in the chart. He has had a bypass surgery. He has also had angioplasty and stent placement after his bypass surgery. He has a history of chronic diastolic heart failure. He also has a history of chronic kidney disease as well as hypertension. He apparently has been moving back and forth between [place], [place] and [place], and also back to [place] and then back again. He recently just moved back to [place] about a month ago after being in [place] for several months. Unfortunately, in the last several months, he has not been taking any of his medications. He said he had been doing quite well until a couple of weeks ago. He started noticing he was becoming increasing shortness of breath. He also had some chest discomfort, which he says has been present for the last three days. On review of the records, he has had chest pressure in the past, which is very similar to what he is experiencing now. The pain is worse with coughing or respiration, but otherwise he appears to be relatively comfortable. Mainly, he had just stop taking his medications. Also noted that his renal function has deteriorated further. His creatinine was significantly elevated compared to the last time. His creatinine at this time is now 4.4 with a BUN of 32, but it was 2.67 back in July of this year. He is feeling somewhat better after getting some diuresis. He has been seen by a counter waitress/waiter. He has also been placed back on IV Lasix as well as Zaroxolyn. In the emergency room, it was felt that he most likely had atrial fibrillation with a rapid ventricular response. On close review of the EKG, I believe this is a sinus rhythm with some PACs, does not appear to be atrial fibrillation. He had been on diltiazem as well as metoprolol and amiodarone in the past. We reinstated some of these medications, but does not appear to be atrial fibrillation at this time. Otherwise, he seems to be relatively comfortable. This needs to have some diuresis and will need to stay on his medications. He has actually undergone a Cardiolite studies in the past, but has not had anything recently. He also has not had an echocardiogram for several months. We will schedule him for an echocardiogram for evaluation of the left ventricular systolic function. The last echocardiogram was performed in April of this year, which showed ejection fraction of 50% to 55% with moderate mitral valve regurgitation and his diastolic dysfunction. He also has had episodes of COPD exacerbation, but this appears to be more of a congestive heart failure episode at this time with his diastolic heart failure and not taking his medications. PAST MEDICAL HISTORY: Significant for the coronary artery disease, angioplasty, stent placement, bypass surgery. He has had occluded bypass grafts. He has had drug-eluting stents placed. He has history of peripheral vascular disease. He has undergone aortobifemoral bypass and subsequently ended up having to have bilateral AKAs. He has had atrial flutter in the past and underwent an ablation. He has history of hypertension, hypercholesterolemia, diabetes, chronic kidney disease, and diastolic heart failure. MEDICATIONS: Prior to admission included amlodipine 5 mg twice a day, Coreg 6.25 mg b.i.d., diltiazem 240 mg a day, furosemide 40 mg once a day, Lyrica 75 mg tablets 200 mg 2 times a day. He is also on terbinafine HCl 250 mg once a day. Diltiazem 30 mg tablets q.i.d.; I believe he was taking the 240 mg, but this may be the same medication, uncertain if he was taking both of them or not. He is also taking ferrous sulfate 325 mg a day. On the previous records, it was shown that he was taking amitriptyline 25 mg at bedtime, amiodarone 200 mg a day. He was also taking gabapentin 100 mg b.i.d. and glipizide 5 mg b.i.d., Xarelto 15 mg a day, rosuvastatin 20 mg q.p.m. ALLERGIES: NONE. SOCIAL HISTORY: He continues to use marijuana. He has used drugs in the past with amphetamines. He says he no longer uses these, but does smoke and also uses marijuana on a routine basis. FAMILY HISTORY: Positive for coronary artery disease. REVIEW OF SYSTEMS: Essentially the review of systems is relatively unremarkable except what is noted in the history of present illness. He denies any HEENT complaints. He does have some problems with sleeping, in which he says that he smokes marijuana to help him go to sleep. He has had mainly the shortness of breath. He has also had some mild nausea and some diarrhea. Otherwise, he seems to be doing relatively well in the review of systems. He is able to transfer from the bed to the wheelchair by himself with his AKAs. PHYSICAL EXAMINATION: GENERAL: Reveals a middle-aged gentleman, who is in no acute distress at this time. He is alert. He is oriented. VITAL SIGNS: Blood pressure is 166/103, early then decreased down to 127/79, O2 saturation 98%, heart rate was 101 and appears to be a sinus rhythm with frequent PACs. He is afebrile. Respiratory rate was 18. HEENT: Shows the head to be normocephalic and atraumatic. Carotid pulses are somewhat decreased. I cannot hear any bruits. CHEST: Has decreased breath sounds at least 1/[address] to [address] bilaterally. I do not hear any rales, rhonchi, or wheezing. CARDIOVASCULAR: Somewhat irregular rhythm, but appears to be due to ectopy. He does have a systolic murmur at the apex. ABDOMEN: Soft. He does have a large abdominal hernia. I did not palpate any tenderness or masses. The hernia is easily reduced. EXTREMITIES: Show bilateral AKAs. I do not see any significant edema. However, he does have on the chest x-ray, bilateral pleural effusions. NEUROLOGIC: He appears to be relatively intact. LABORATORY DATA: Shows potassium was 3.6, sodium was 136, BUN was 32 with a creatinine of 4.44, CO2 is 16. His blood sugar was 143. Hemoglobin is 12.7 with hematocrit 38.2, WBC of 6.5 with a platelet count of 141,000. Thus far negative for COVID. There was no drug test performed. His EKG shows a sinus rhythm with occasional PACs. IMPRESSION: 1. Congestive heart failure exacerbation with a history of diastolic heart failure and the patient has not been taking his medications for about 2 months. He is feeling somewhat better after being given diuretics and started back on his medications. He is about 400 mL negative for today after diuresis. Given his acute renal problems or worsening of his renal insufficiency, he may need to undergo eventually dialysis. We will see whether or not the IV Lasix and Zaroxolyn will work for him to see whether he will diurese. 2. History of coronary artery disease. He does have some continuation of chest discomfort. This appears to be somewhat atypical, increasing with coughing. This can be certainly evaluated further by Dr. Morales when he visits with the patient tomorrow. At this time, I would agree with the present management. 3. Diabetes, this will be dealt with by the primary care service. 4. History of hypertension. We will need to continue to monitor the hypertension. We may need to add clonidine. He is actually on beta blockers, amiodarone, as well as diltiazem. 5. History of possible atrial fibrillation in the past, for which he is on amiodarone. I do not see any clear indication that he has any atrial fibrillation, however, at this time. 6. History of abnormal cardiac enzymes and elevated troponin I, he apparently has a chronic elevation of the cardiac enzymes and this most likely is due to demand ischemia associated with his congestive heart failure exacerbation. 7. Hypercholesterolemia. There is no recent cholesterol level obtained. However, he has not been taking his medications. This will need to be evaluated and the patient will need to have assistance to get his medications. He does have a history of paroxysmal atrial fibrillation and has been on chronic anticoagulation in the past. We will need again to have some assistance to get these medications to continue them and to decrease the risk of having a cerebral event. We will also ask for an echocardiogram, and we will address these medications as needed for blood pressure control and also to help diurese the patient. Job ID: [id number]
--- NOTE | 2019-12-11 06:19 | PDOC.FM ---
- Subjective Subjective: Mr. Calderon is doing well this morning. He reports improved breathing and says he hasn't experienced chest pain since yesterday. - Objective Vital Signs & Weight: Vital Signs (12 hours) Temp Pulse Resp BP Pulse Ox 12/10/19 20:13 98.5 F 94 20 138/64 94 L Weight Weight 59.829 kg I&O: 12/09/19 12/10/19 12/11/19 06:59 06:59 06:59 Intake Total 960 755 Output Total 1400 700 Balance -440 55 Result Diagrams: 12/10/19 03:46 12/10/19 03:46 EKG Reviewed by me: Yes (tele: Vtach, PACs) Phys Exam - Physical Examination Constitutional: NAD HEENT: moist MMs, sclera anicteric Neck: full ROM Respiratory: no wheezing, no rales, no rhonchi, clear to auscultation bilateral Cardiovascular: RRR, no significant murmur Gastrointestinal: soft, non-tender, no distention, positive bowel sounds Musculoskeletal: no edema, pulses present b/l AKAs Neurological: non-focal Psychiatric: normal affect, A&O x 3 Dx/Plan (1) COPD exacerbation Code(s): J44.1 - CHRONIC OBSTRUCTIVE PULMONARY DISEASE W (ACUTE) EXACERBATION Status: Acute (2) Acute exacerbation of CHF (congestive heart failure) Code(s): I50.9 - HEART FAILURE, UNSPECIFIED Status: Acute (3) Acute on chronic renal failure Code(s): N17.9 - ACUTE KIDNEY FAILURE, UNSPECIFIED; N18.9 - CHRONIC KIDNEY DISEASE, UNSPECIFIED Status: Acute (4) Elevated troponin Code(s): R74.8 - ABNORMAL LEVELS OF OTHER SERUM ENZYMES Status: Acute (5) Pulmonary edema with congestive heart failure Code(s): I50.1 - LEFT VENTRICULAR FAILURE, UNSPECIFIED Status: Acute (6) CKD (chronic kidney disease) stage 3, GFR 30-59 ml/min Code(s): N18.3 - CHRONIC KIDNEY DISEASE, STAGE 3 (MODERATE) * DO NOT USE * Status: Chronic (7) DM2 (diabetes mellitus, type 2) Status: Chronic (8) HLD (hyperlipidemia) Code(s): E78.5 - HYPERLIPIDEMIA, UNSPECIFIED Status: Chronic Qualifiers: (9) HTN (hypertension) Code(s): I10 - ESSENTIAL (PRIMARY) HYPERTENSION Status: Chronic (10) Tobacco abuse Code(s): Z72.0 - TOBACCO USE Status: Chronic - Plan Plan: 54 yo M with history of COPD, CHF, HTN, DMII presenting for worsening productive cough and SOB of 4 day duration Acute on chronic COPD exacerbation Improved air movement today on auscultation. Continue current treatment. -Duonebs, prednisone -Procal wnl, mild exacerbation and azithromycin not indicated at this time Acute on chronic HFpEF exacerbation -BNP 1164 -CXR: worsening congestion and b/l pulmonary edema -April ECHO: 50-55% EF -received 40mg IV lasix in ED -1075mL out yesterday, +460 balance -strict I/Os -daily weights -Consult: Roger (Nephro) - add zaroxolyn, may increased lasix to 80mg BID if necessary. May require dialysis during this hospitalization. -Consult: Lynn (Sumeet) - ECHO today -40mg IV lasix today, will monitor output Afib w/RVR vs. recurrent PACs -Consult: Radha (Sumeet) - reviewed EKG and believes rhythm is recurrent PACs and not Afib. Consider clonidine for better BP control. -restarted home diltiazem and amiodarone -Dilt drip - consider discontinuing today -HR 80-90s since yesterday, several episode of Vtach and multiple PACs -Continue to monitor on tele Elevated troponins -chronically elevated. History of bypass surgery, angioplasty, stent. Has seen Dr. Morales in the past. -0.154, 0.156, 0.161, 0.155 -no ST changes on EKG -ECHO today -Cards recs per Dr. Morales WILLIS on CKD -Cr 4.38, 4.4, baseline ~2.5 -GFR 16, baseline 25-30 -Encourage PO fluids -Will monitor closely while diuresing -Consult: Roger (Nephro) - continue diuresis. May require dialysis during this hospitalization. HTN -Continue home medications -Consider adding clonidine for better control if necessary HLD - aware, restart home medication DMII -A1c 5.6 -mild SSI -CC diet Nicotine dependance -Nicotine patch Marijuana use disorder -Reports daily use -Smoking cessation education PCP: CORRIE Torres) Code: FULL Diet: CC 1999 DVTPPx: lovenox 30mg Dispo: eLOS >48hrs. Discharge pending rate control and improvement of symptoms. Addendum - Attending - Attending Attestation Date/Time: 12/11/19 1122 I personally evaluated the patient and discussed the management with Dr. Saucedo. I agree with the History, Examination, Assessment and Plan documented above with any addition or exceptions noted below.
[2019-12-11] MEDS: Pregabalin 50 MG CAP PO SCH (08:13)
[2019-12-11] MEDS: Diltiazem 125 MG in Sodium Chloride 0.9% 100 ML IVPB SCH (08:13)
[2019-12-11] MEDS: Amiodarone 200 MG TAB PO SCH (08:14)
[2019-12-11] MEDS: Amlodipine 5 MG TAB PO SCH (08:14)
[2019-12-11] MEDS: Carvedilol 3.125 MG TAB PO SCH (08:15)
[2019-12-11] MEDS: guaiFENesin/DM ER PO SCH (08:15)
[2019-12-11] MEDS: Ferrous Sulfate 325 MG TAB PO SCH (08:15)
[2019-12-11] MEDS: Metolazone 2.5 MG TAB PO SCH (08:15)
[2019-12-11] MEDS: predniSONE 20 MG TAB PO SCH (08:15)
[2019-12-11] MEDS: Heparin 5,000 UNITS/ML VIAL SC SCH (08:16)
[2019-12-11] MEDS ORDERED: Heparin 10,000 UNITS/ 10 ML VIAL ONE (08:29)
[2019-12-11] MEDS ORDERED: Furosemide 40 MG/4 ML VIAL SLOW IVP SCH ×2 (09:00→12:30)
[2019-12-11] MEDS: Guaifenesin DM 100-10/5 ML UDCUP PO PRN ×2 (09:06→15:33)
[2019-12-11 11:25] LABS: #Lymphocytes 0.7 thou/uL (1.20-3.40); #Monocytes 0.3 thou/uL (0.11-0.59); %Eosinophils 0.1 % (0.0-10.0); %Lymphocytes 5.8 % (21.0-51.0); %Monocytes 2.8 % (0.0-10.0); %Neutrophils 91.3 % (42.0-75.0); Hemoglobin 13.1 g/dL (14.0-18.0); Mean Corpuscular HGB CONC 31.3 g/dL (32.0-36.0); Mean Corpuscular Hemoglobin 29.2 pg (27.0-31.0); Mean Corpuscular Volume 93.2 fL (78.0-98.0); Mean Platelet Volume 11.3 fL (7.4-10.4); Platelet Count 164 thou/uL (130-400); RBC Distribution Width 14.2 % (11.5-14.5); Red Blood Cell (RBC) Count 4.48 mill/uL (4.70-6.10)
[2019-12-11] MEDS: HumaLOG 300 UNITS/3 ML VIAL SC PRN ×2 (11:50→17:13)
[2019-12-11 12:06] LABS: Anion Gap 15 mmol/L (10-20); BUN (Urea Nitrogen) 41 mg/dL (8.4-25.7); Calc. Creatinine Clearance 12 mL/min (70-130); Calcium 8.3 mg/dL (7.8-10.44); Carbon Dioxide 16 mmol/L (23-31); Cardiac Risk 3.3 (Less than 4.5); Chloride 104 mmol/L (98-107); Cholesterol 154 mg/dl (< 200 Desired); Estimated GFR-MDRD 13; Glucose 294 mg/dL (80-115); HDL Cholesterol 46 mg/dL (>60 Neg Risk); LDL Cholesterol, Calculated 93 mg/dL; Potassium 4.2 mmol/L (3.5-5.1); Sodium 131 mmol/L (136-145); Triglycerides 73 mg/dL (Less than 150)
[2019-12-11] MEDS: Nicotine 14 MG PATCH TD SCH (12:34)
[2019-12-11 14:34] LABS: Amphetamine Not Detected (NotDetected); Barbiturates Screen Not Detected (NotDetected); Benzodiazepine Screen Not Detected (NotDetected); Cocaine Metabolite Screen Detected (NotDetected); Medtox Control Line Valid? VALID (VALID); Medtox Reader # READER 4; Methadone Not Detected (NotDetected); Methamphetamine Not Detected (NotDetected); Opiate Screen Not Detected (NotDetected); Oxycodone Screen Not Detected (NotDetected); Phencyclidine (PCP) Not Detected (NotDetected); THC/Cannabinoid Screen Detected (NotDetected); Tricyclic Screen Detected (NotDetected)
--- NOTE | 2019-12-11 17:58 | PRG ---
DATE OF SERVICE: 12/11/2019 SUBJECTIVE: This is a 64-year-old gentleman, being seen for acute kidney injury. The patient complains of dyspnea and unable to make any urine after being on Lasix. PHYSICAL EXAMINATION: General: The patient is resting, in [id number] distress. Vital Signs: Afebrile, pulse 67, breathing at 16, blood pressure 130/72. HEENT: Head normocephalic and atraumatic. Eyes intact, no ulcers. Nose intact, no ulcers. Ears intact, no ulcers. Neck: Supple. No JVD. Chest: Symmetrical and clear. Cardiovascular: Shows S1 and S2, no rub, no murmur. Gastrointestinal: Abdomen is soft, bowel sounds positive. Extremities: Show no edema or ulcers. Skin: Shows no rash or petechiae. Musculoskeletal: Shows no joint swelling or stiffness. Genitourinary: Shows no Weinberg or CVA tenderness. Neurologic: Motor intact. Cranial nerves intact. LABORATORY DATA: Reviewed. ASSESSMENT AND PLAN: 1. Acute kidney injury with chronic kidney disease, the patient is oliguric with significant dyspnea. We will plan dialysis. Risks versus benefits discussed. 2. Anemia, stable. 3. Metabolic acidosis, plan dialysis. We will do urgent dialysis and consult Surgery for tunnelled catheter placement. Job ID: [id number]
--- NOTE | 2019-12-11 23:56 | CON ---
DATE OF CONSULTATION: HISTORY OF PRESENT ILLNESS: Prudencio Calderon is a 64-year-old black male, bilateral qawem-eip-ikcy amputee, who is status post aortobifemoral bypass graft and right colon resection for early colon cancer. He has an incisional hernia that I have seen for in the past. We decided to follow and not do operation as it is not bothersome to him and low risk for incarceration or problems. The patient has chronic kidney disease. He has progressed to need hemodialysis access. Dr. Duran has asked me to see him regarding dialysis access site as he is slightly acidotic, even though his potassium is 4.2. GFR 13, BUN 41. The patient has had bilateral aortofemoral bypass graft. We will plan hemodialysis catheter, Trialysis at his right groin. He has a hand IV. COVID negative on 12/09/2019. On May 22, 2018, I performed a laparoscopic right colectomy. The patient lives shares an apartment with his cousin. He has transportation problems. ALLERGIES: NONE. TOBACCO: 1/2 pack per day. ALCOHOL: Occasionally. Daily marijuana use. FAMILY HISTORY: His dad had lung cancer. PAST SURGICAL HISTORY: Bilateral AKA's, right colon resection for early colon cancer. No adjunctive therapy necessary. Incisional hernia observed. PAST MEDICAL HISTORY: COPD, hypertension, diabetes mellitus type 2. He has a long history of coronary artery disease with CHF. The patient has had bypass surgery. He has had angioplasty and stent placement after his bypass surgery. He has chronic diastolic dysfunction, history of chronic kidney disease. [place]mer, Dr. Bailey has seen him in this hospitalization and knows that he has not been taking his medications, cardiac. In the last few months, he has had care at [place], [facility] at [facility], and [facility] in [facility]. Does not appear to be in atrial fibrillation. Dr. Morales is his usual calibration checker when he comes to this facility. Echocardiogram on 12/11/2019, 50% to 55% diastolic dysfunction, moderate mitral regurg, mild tricuspid regurgitation. PHYSICAL EXAMINATION: VITAL SIGNS: 133 pounds bilateral AKAs, temperature 97.5 degrees, 81,119/67. HEAD, EARS, EYES, NOSE AND THROAT: Unremarkable. LUNGS: Clear to auscultation. No wheezing. CARDIAC: Regular rate and rhythm. ABDOMEN: Soft, incisional hernia. No abdominal masses. Incisional hernia, upper midline is larger about 5 cm across. EXTREMITIES: Bilateral AKAs. Palpable femoral pulses bilaterally. Prosthetic grafts fell. In September 2007, right femoral to above knee popliteal artery bypass graft with Healy-Pérez, Dr. Riley Cardenas; June 2008, left L4-L5 partial hemilaminectomy, Dr. Romero. On 02/20/2010, coronary artery bypass grafting x4, Dr. Riley Cardenas. 03/15/2010, right BKA; right AKA, Dr. Cardenas, March 2011. ASSESSMENT: End-stage renal disease. PLAN: Placement of a temporary femoral vein dialysis catheter, initiate dialysis tonight. He understands the risks and benefits and consent. Save your veins for dialysis access and plan hemodialysis catheter cuff, tunneled next week. Plan placement of right or left arm fistula pending vein mapping next week. Job ID: [id number]
[2019-12-12] MEDS: Carvedilol 3.125 MG TAB PO SCH ×3 (01:11→20:04)
[2019-12-12] MEDS: guaiFENesin/DM ER PO SCH ×3 (01:11→20:04)
[2019-12-12] MEDS: Amitriptyline HCl 25 MG TAB PO SCH ×2 (01:11→20:04)
[2019-12-12] MEDS: Heparin 5,000 UNITS/ML VIAL SC SCH ×3 (01:11→20:05)
[2019-12-12] MEDS: Pregabalin 50 MG CAP PO SCH ×2 (01:11→13:16)
[2019-12-12] MEDS: Rosuvastatin 10 MG TAB PO SCH ×2 (01:12→20:04)
[2019-12-12 01:17] LABS: HBSAB Concentration Less than 8.00 mIU/mL; HBSAg Index 0.16 S/CO (0-0.99); Hep B Core Total Ab Non-Reactive (NonReactive); Hep B Core Total Index 0.09 S/CO (0-0.79); Hep B Surf AB Non-Reactive (NonReactive); Hep B Surf Ag Non-Reactive S/CO (NonReactive)
[2019-12-12 01:22] LABS: Hep C IgG Ab Reflex HepC Qnt (NonReactive); Hep C Index 13.09 S/CO (0-0.79)
--- NOTE | 2019-12-12 06:30 | PDOC.FM ---
- Subjective Subjective: Mr. Calderon was tired today. He said dialysis went well yesterday and he is breathing easier today. - Objective Vital Signs & Weight: Vital Signs (12 hours) Temp Pulse Resp BP Pulse Ox 12/12/19 03:48 97.3 F L 91 17 141/99 H 95 12/12/19 01:34 94 L 12/12/19 00:07 77 16 95 12/12/19 00:00 95 12/11/19 23:24 96.7 F L 78 20 132/89 94 L 12/11/19 19:34 97.5 F L 81 18 119/67 94 L 12/11/19 18:32 78 16 94 L Weight Weight 61.235 kg I&O: 12/10/19 12/11/19 12/12/19 06:59 06:59 06:59 Intake Total 960 1535 360 Output Total 1400 1075 210 Balance -440 460 150 Result Diagrams: 12/12/19 09:45 12/12/19 09:45 Additional Labs: lipids wnl UDS: positive for tricyclics, cocaine, cannabinoid Hep C antibody positive EKG Reviewed by me: Yes (tele: 7 beats of Vtach) Radiology Reviewed by me: Yes (ECHO: 50-55%, mod MR) Phys Exam - Physical Examination Constitutional: NAD HEENT: moist MMs, sclera anicteric Neck: full ROM Respiratory: no wheezing, clear to auscultation bilateral Cardiovascular: RRR, no significant murmur Gastrointestinal: soft, non-tender, positive bowel sounds ventral hernia Musculoskeletal: no edema, pulses present b/l AKAs Neurological: non-focal Psychiatric: normal affect, A&O x 3 Dx/Plan (1) COPD exacerbation Code(s): J44.1 - CHRONIC OBSTRUCTIVE PULMONARY DISEASE W (ACUTE) EXACERBATION Status: Acute (2) Acute exacerbation of CHF (congestive heart failure) Code(s): I50.9 - HEART FAILURE, UNSPECIFIED Status: Acute (3) Acute on chronic renal failure Code(s): N17.9 - ACUTE KIDNEY FAILURE, UNSPECIFIED; N18.9 - CHRONIC KIDNEY DISEASE, UNSPECIFIED Status: Acute (4) Elevated troponin Code(s): R74.8 - ABNORMAL LEVELS OF OTHER SERUM ENZYMES Status: Acute (5) Pulmonary edema with congestive heart failure Code(s): I50.1 - LEFT VENTRICULAR FAILURE, UNSPECIFIED Status: Acute (6) CKD (chronic kidney disease) stage 3, GFR 30-59 ml/min Code(s): N18.3 - CHRONIC KIDNEY DISEASE, STAGE 3 (MODERATE) * DO NOT USE * Status: Chronic (7) DM2 (diabetes mellitus, type 2) Status: Chronic (8) HLD (hyperlipidemia) Code(s): E78.5 - HYPERLIPIDEMIA, UNSPECIFIED Status: Chronic Qualifiers: (9) HTN (hypertension) Code(s): I10 - ESSENTIAL (PRIMARY) HYPERTENSION Status: Chronic (10) Tobacco abuse Code(s): Z72.0 - TOBACCO USE Status: Chronic - Plan Plan: 54 yo M with history of COPD, CHF, HTN, DMII presenting for worsening productive cough and SOB of 4 day duration Acute on chronic COPD exacerbation Improved air movement. -Make duonebs PRN instead of scheduled -prednisone (day 3/5) -Procal wnl, mild exacerbation and azithromycin not indicated at this time Acute on chronic HFpEF exacerbation -BNP 1164, CXR: worsening congestion and b/l pulmonary edema, April ECHO: 50- 55% EF, IV lasix in ED -Received IV 40mg lasixx2 yesterday with only 200mL output. Discussed need for dialysis with patient and he agreed. -1210mL out yesterday, -610 balance -strict I/Os -daily weights -Consult: Roger (Nephro) - Colleenroxagustina herman increased lasix to 80mg BID if necessary. Started dialysis yesterday -Consult: Roque (Cards) -ECHO: EF 50-55%, mod MR WILLIS on CKD -Cr 4.38, 4.4, baseline ~2.5 -GFR 16, baseline 25-30 -Encourage PO fluids -Consult: Roger (Nephro) - continue diuresis. dialysis yesterday -Consult: Xu (gen surg) - placed temporary fem vein dialysis catheter yesterday. Tunnel and fistula next week. Afib w/RVR vs. recurrent PACs -Consult: Agustina (Sumeet) - reviewed EKG and believes rhythm is recurrent PACs and not Afib. Consider clonidine for better BP control. -restarted home diltiazem and amiodarone -HR 80-90s, 7 beats of Vtach -Continue to monitor on tele Elevated troponins -chronically elevated. History of bypass surgery, angioplasty, stent. Has seen Dr. Morales in the past. -0.154, 0.156, 0.161, 0.155 -no ST changes on EKG -ECHO: 50-55%, mod MR -Cards recs per Dr. Morales: UDS (positive for tricyclics, cocaine, cannabinoids), IV lasix, resume home meds HTN -Continue home medications -Consider adding clonidine for better control if necessary HLD - aware, restart home medication DMII -A1c 5.6 -mild SSI -CC diet Nicotine dependance -Nicotine patch Marijuana use disorder -Reports daily use -Smoking cessation education PCP: CORRIE Torres) Code: FULL Diet: CC 1999 DVTPPx: heparin Dispo: eLOS >48hrs. Discharge pending diuresis. Addendum - Attending - Attending Attestation Date/Time: 12/12/19 [id number] I personally evaluated the patient and discussed the management with Dr. Saucedo. I agree with the History, Examination, Assessment and Plan documented above with any addition or exceptions noted below.
[2019-12-12] MEDS: HumaLOG 300 UNITS/3 ML VIAL SC PRN ×3 (06:36→21:33)
--- NOTE | 2019-12-12 07:37 | OP ---
DATE OF PROCEDURE: 12/11/2019 PREOPERATIVE DIAGNOSES: End-stage renal disease, bilateral [id number] amputation status post fem-pops both legs, diastolic dysfunction, acidosis. PROCEDURE: Right femoral vein Trialysis catheter. ANESTHESIA: 1% Xylocaine. DESCRIPTION OF PROCEDURE: With the patient at bedside, right groin was clipped of hair, prepared with ChloraPrep, and draped in routine fashion. Local anesthetic 1% Xylocaine was infiltrated in skin and subcutaneous tissue. Trocar catheter cannulated the femoral vein. J-wire threaded. Trocar catheter removed. Skin site enlarged sharply. Small and medium size dilators were placed and removed. Distal port of the Trialysis catheter placed and J-wire removed. Catheter secured with 3-0 nylon suture. Each port aspirated of blood and flushed with heparinized saline solution. The patient tolerated procedure well. Job ID: [id number]
[2019-12-12] MEDS ORDERED: Heparin 10,000 UNITS/ 10 ML VIAL ONE (09:04)
[2019-12-12 10:05] LABS: #Lymphocytes 1.2 thou/uL (1.20-3.40); #Neutrophils 8.4 thou/uL (1.40-6.50); %Basophils 0.1 % (0.0-1.0); %Eosinophils 0.1 % (0.0-10.0); %Neutrophils 79.8 % (42.0-75.0); Hemoglobin 12.6 g/dL (14.0-18.0); Mean Platelet Volume 11.3 fL (7.4-10.4); Platelet Count 131 thou/uL (130-400); Red Blood Cell (RBC) Count 4.19 mill/uL (4.70-6.10); White Blood Cell (WBC) Count 10.5 thou/uL (4.8-10.8)
[2019-12-12 10:23] LABS: Anion Gap 11 mmol/L (10-20); BUN (Urea Nitrogen) 35 mg/dL (8.4-25.7); Calc. Creatinine Clearance 14 mL/min (70-130); Calcium 8.3 mg/dL (7.8-10.44); Carbon Dioxide 25 mmol/L (23-31); Chloride 102 mmol/L (98-107); Estimated GFR-MDRD 15; Glucose 105 mg/dL (80-115); Potassium 3.3 mmol/L (3.5-5.1); Sodium 135 mmol/L (136-145)
[2019-12-12] MEDS ORDERED: Potassium Chloride 20 MEQ TAB PO SCH (11:15)
--- NOTE | 2019-12-12 11:28 | PRG ---
DATE OF SERVICE: 12/12/2019 SUBJECTIVE: A 64-year-old gentleman, being seen for end-stage renal disease. The patient denies any nausea, vomiting, or chest pain. OBJECTIVE: General: The patient is awake and alert. Vital Signs: Afebrile, pulse 75, breathing at 16, blood pressure 140/70. HEENT: Head normocephalic and atraumatic. Eyes intact, no ulcers. Nose intact, no ulcers. Ears intact, no ulcers. Neck: Supple. No JVD. Chest: Symmetrical and clear. Cardiovascular: Shows S1 and S2, no rub, no murmur. Gastrointestinal: Abdomen is soft, bowel sounds positive. Extremities: Show no edema or ulcers. Skin: Shows no rash or petechiae. Musculoskeletal: Shows no joint swelling or stiffness. Genitourinary: Shows no Weinberg or CVA tenderness. Neurologic: Motor intact. Cranial nerves intact. LABORATORY DATA: Potassium 3.3. ASSESSMENT AND PLAN: 1. Stage 6 chronic kidney disease. Continue hemodialysis. 2. Hypertension, stable. 3. Anemia, stable. 4. Congestive heart failure, continue dialysis. 5. Hypokalemia. We will use a 4K bath. I will order outpatient dialysis setup. Job ID: [id number]
[2019-12-12] MEDS ORDERED: CEFAZOLIN 2 GM in Premix Bag 1 BAG IVPB SCH (12:00)
--- NOTE | 2019-12-12 12:25 | ULT ---
ULTRASOUND VENOUS MAPPING UPPER EXTREMITIES BILATERAL: DATE: 12/12/2019 HISTORY: 64-year-old male with End-stage renal disease. Surgical planning study for creation of arteriovenous fistula for hemodialysis. FINDINGS: RIGHT: Brachial artery:4.5 mm Radial artery:3.5 mm Ulnar artery:2 mm Cephalic vein: Proximal arm: 1 mm Mid arm: 0.5 mm Distal arm: 1 mm Antecubital: 1 mm Proximal forearm: 1.5 mm Mid forearm: 1.5 mm Distal forearm: 1 mm Basilic vein: Proximal arm: 5.5 mm Mid arm: 3.5 mm Distal arm: 3 mm Antecubital: 4 mm Proximal forearm: 2 mm Mid forearm: 1 mm Distal forearm: 1 mm LEFT: Brachial artery:5.5 mm Radial artery:3.5 mm Ulnar artery:2 mm Cephalic vein: Proximal arm: 1.5 mm Mid arm: 1 mm Distal arm: 1 mm Antecubital: 1.5 mm Proximal forearm: occluded Mid forearm: occluded Distal forearm: occluded Basilic vein: Proximal arm: 5.5 mm Mid arm: 2.5 mm Distal arm: 2 mm Antecubital: 1 mm Proximal forearm: occluded Mid forearm: occluded Distal forearm: occluded IMPRESSION: 1) thrombosis and occlusion of basilic vein and cephalic vein in the left forearm. 2) basilic vein in the right arm is at least 3 mm in caliber.
[2019-12-12] MEDS: Amiodarone 200 MG TAB PO SCH (12:50)
[2019-12-12] MEDS: predniSONE 20 MG TAB PO SCH (12:50)
[2019-12-12] MEDS: Amlodipine 5 MG TAB PO SCH (12:50)
[2019-12-12] MEDS: Ferrous Sulfate 325 MG TAB PO SCH (12:50)
[2019-12-12] MEDS: Metolazone 2.5 MG TAB PO SCH (12:50)
[2019-12-12] MEDS: Nicotine 14 MG PATCH TD SCH (13:39)
--- NOTE | 2019-12-13 05:38 | PDOC.FM ---
- Subjective Subjective: Mr. Calderon is breathing comfortably today. He denies any CP, SOB, nausea, vomiting. He expresses disappointment at now having to be on dialysis. - Objective Vital Signs & Weight: Vital Signs (12 hours) Temp Pulse Resp BP Pulse Ox 12/13/19 04:00 97.6 F 98 17 128/98 H 98 12/13/19 00:08 95 12/12/19 23:43 98.0 F 95 18 125/81 95 12/12/19 19:57 97.9 F 91 18 111/57 L 96 Weight Weight 60.1 kg I&O: 12/11/19 12/12/19 12/13/19 06:59 06:59 06:59 Intake Total 1535 600 720 Output Total 1075 1210 1675 Balance 670 -874 -065 Result Diagrams: 12/13/19 06:10 12/13/19 06:10 EKG Reviewed by me: Yes (tele: 6 beats Vtach, HR 80-90s) Phys Exam - Physical Examination Constitutional: NAD HEENT: moist MMs, sclera anicteric Neck: no JVD, full ROM Respiratory: no wheezing, clear to auscultation bilateral Cardiovascular: RRR, no significant murmur Gastrointestinal: soft, non-tender hernia Musculoskeletal: no edema, pulses present b/l AKAs Neurological: moves all 4 limbs Dx/Plan (1) COPD exacerbation Code(s): J44.1 - CHRONIC OBSTRUCTIVE PULMONARY DISEASE W (ACUTE) EXACERBATION Status: Acute (2) Acute exacerbation of CHF (congestive heart failure) Code(s): I50.9 - HEART FAILURE, UNSPECIFIED Status: Acute (3) Acute on chronic renal failure Code(s): N17.9 - ACUTE KIDNEY FAILURE, UNSPECIFIED; N18.9 - CHRONIC KIDNEY DISEASE, UNSPECIFIED Status: Acute (4) Elevated troponin Code(s): R74.8 - ABNORMAL LEVELS OF OTHER SERUM ENZYMES Status: Acute (5) Pulmonary edema with congestive heart failure Code(s): I50.1 - LEFT VENTRICULAR FAILURE, UNSPECIFIED Status: Acute (6) CKD (chronic kidney disease) stage 3, GFR 30-59 ml/min Code(s): N18.3 - CHRONIC KIDNEY DISEASE, STAGE 3 (MODERATE) * DO NOT USE * Status: Chronic (7) DM2 (diabetes mellitus, type 2) Status: Chronic (8) HLD (hyperlipidemia) Code(s): E78.5 - HYPERLIPIDEMIA, UNSPECIFIED Status: Chronic Qualifiers: (9) HTN (hypertension) Code(s): I10 - ESSENTIAL (PRIMARY) HYPERTENSION Status: Chronic (10) Tobacco abuse Code(s): Z72.0 - TOBACCO USE Status: Chronic - Plan Plan: 54 yo M with history of COPD, CHF, HTN, DMII presenting for worsening productive cough and SOB of 4 day duration Acute on chronic COPD exacerbation Improved air movement. -Make duonebs PRN instead of scheduled -prednisone (day 4/5) -Procal wnl, mild exacerbation and azithromycin not indicated at this time Acute on chronic HFpEF exacerbation -BNP 1164, CXR: worsening congestion and b/l pulmonary edema, April ECHO: 50- 55% EF, IV lasix in ED -1675mL out yesterday, -955 balance -strict I/Os -daily weights -Consult: Roger (Nephro) - Zaroxolyn, on dialysis -Consult: Roque (Cards) -ECHO: EF 50-55%, mod MR WILLIS on CKD -Cr 4.38, 4.4, baseline ~2.5 -GFR 16, baseline 25-30 -Encourage PO fluids -Consult: Roger (Nephro) - continue diuresis. on dialysis. Getting outpatient dialysis set up. -Consult: Xu (gen surg) - placed temporary fem vein dialysis catheter 12/10. Tunnel and fistula next week. Afib w/RVR vs. recurrent PACs -Consult: Radha (Sumeet) - reviewed EKG and believes rhythm is recurrent PACs and not Afib. Consider clonidine for better BP control. -restarted home diltiazem and amiodarone -HR 80-90s, 7 beats of Vtach -Continue to monitor on tele Elevated troponins -chronically elevated. History of bypass surgery, angioplasty, stent. Has seen Dr. Morales in the past. -0.154, 0.156, 0.161, 0.155 -no ST changes on EKG -ECHO: 50-55%, mod MR -Cards recs per Dr. Morales: UDS (positive for tricyclics, cocaine, canna binoids), IV lasix, resume home meds HTN -Continue home medications -Consider adding clonidine for better control if necessary HLD - aware, restart home medication DMII -A1c 5.6 -mild SSI -CC diet Nicotine dependance -Nicotine patch Marijuana use disorder -Reports daily use -Smoking cessation education PCP: CORRIE Torres) Code: FULL Diet: CC 1999 DVTPPx: heparin Dispo: eLOS >48hrs. Discharge pending diuresis. Addendum - Attending - Attending Attestation Date/Time: 12/13/19 0736 I personally evaluated the patient and discussed the management with Dr. Saucedo. I agree with the History, Examination, Assessment and Plan documented above with any addition or exceptions noted below. The patient will be getting tunneled dialysis catheter soon. Overall pt is stable today. Breathing at baseline.
[2019-12-13] MEDS: HumaLOG 300 UNITS/3 ML VIAL SC PRN ×2 (05:40→21:21)
[2019-12-13 06:18] LABS: #Lymphocytes 1.1 thou/uL (1.20-3.40); #Monocytes 0.7 thou/uL (0.11-0.59); %Eosinophils 0.1 % (0.0-10.0); %Monocytes 5.1 % (0.0-10.0); %Neutrophils 86.8 % (42.0-75.0); Hemoglobin 13.9 g/dL (14.0-18.0); Mean Corpuscular HGB CONC 31.5 g/dL (32.0-36.0); Mean Corpuscular Volume 92.1 fL (78.0-98.0); Mean Platelet Volume 11.2 fL (7.4-10.4); Platelet Count 142 thou/uL (130-400); RBC Distribution Width 14.3 % (11.5-14.5); White Blood Cell (WBC) Count 13.8 thou/uL (4.8-10.8)
[2019-12-13 06:40] LABS: Anion Gap 13 mmol/L (10-20); BUN (Urea Nitrogen) 33 mg/dL (8.4-25.7); Calc. Creatinine Clearance 16 mL/min (70-130); Calcium 8.3 mg/dL (7.8-10.44); Carbon Dioxide 22 mmol/L (23-31); Chloride 103 mmol/L (98-107); Estimated GFR-MDRD 18; Glucose 180 mg/dL (80-115); Sodium 133 mmol/L (136-145)
[2019-12-13] MEDS ORDERED: Pregabalin 75 MG CAP PO SCH (09:00)
[2019-12-13] MEDS ORDERED: Heparin 10,000 UNITS/ 10 ML VIAL ONE (09:02)
[2019-12-13] MEDS: Heparin 5,000 UNITS/ML VIAL SC SCH ×2 (09:35→21:20)
[2019-12-13] MEDS: Amlodipine 5 MG TAB PO SCH (09:35)
[2019-12-13] MEDS: predniSONE 20 MG TAB PO SCH (09:36)
[2019-12-13] MEDS: Pregabalin 50 MG CAP PO SCH (09:36)
[2019-12-13] MEDS: Amiodarone 200 MG TAB PO SCH (09:37)
[2019-12-13] MEDS: Metolazone 2.5 MG TAB PO SCH (09:37)
[2019-12-13] MEDS: guaiFENesin/DM ER PO SCH ×2 (09:37→21:20)
[2019-12-13] MEDS: Ferrous Sulfate 325 MG TAB PO SCH (09:37)
[2019-12-13] MEDS: Carvedilol 3.125 MG TAB PO SCH ×2 (09:37→21:20)
--- NOTE | 2019-12-13 10:38 | PDOC.CPN ---
- Subjective Date: 12/13/19 Time: 10:36 Interval history: No complaints. No overnight events. - Review of Systems General: denies: fever/chills, weight/appetite/sleep changes, night sweats, fatigue Respiratory: denies: cough, congestion, shortness of breath, exercise intolerance Cardiovascular: denies: chest pain, palpitation, edema, paroxysmal nocturnal dyspnea, orthopnea Gastrointestinal: denies: nausea, vomiting, diarrhea, constipation, abd pain, GI bleeding Musculoskeletal: denies: pain, tenderness, stiffness, swelling, arthritis/arthralgias Neurological: denies: numbness, syncope, seizure, weakness - Objective Allergies/Adverse Reactions: Allergies Allergy/AdvReac Type Severity Reaction Status Date / Time No Known Allergies Allergy Verified 05/24/19 15:36 Visit Medications: Current Medications Acetaminophen (Acetaminophen 325 Mg Tab) 650 mg PO Q4H PRN PRN Reason: Headache/Fever/Mild Pain (1-3) Albuterol/Ipratropium (Ipratropium/Albuterol Sulfate 3 Ml Neb) 3 ml NEB [id number] PRN PRN Reason: SOB &/or Wheezing Last Admin: 12/12/19 08:02 Dose: 3 ml Documented by: Amiodarone HCl (Amiodarone 200 Mg Tab) 200 mg PO DAILY [facility] Last Admin: 12/13/19 09:37 Dose: 200 mg Documented by: Amitriptyline HCl (Amitriptyline Hcl 25 Mg Tab) 25 mg PO HS [facility] Last Admin: 12/12/19 20:04 Dose: 25 mg Documented by: Amlodipine Besylate (Amlodipine 5 Mg Tab) 5 mg PO DAILY [facility] Last Admin: 12/13/19 09:35 Dose: 5 mg Documented by: Carvedilol (Carvedilol 3.125 Mg Tab) 3.125 mg PO BID [facility] Last Admin: 12/13/19 09:37 Dose: 3.125 mg Documented by: Dextrose/Water (Dextrose 50% Abboject 50 Ml Syringe) 25 gm SLOW IVP PRN PRN PRN Reason: Hypoglycemia Diltiazem HCl (Diltiazem Hcl 30 Mg Tablet) 30 mg PO Q6HR [facility] Last Admin: 12/13/19 05:40 Dose: 30 mg Documented by: Ferrous Sulfate (Ferrous Sulfate 325 Mg Tab) 325 mg PO DAILY [facility] Last Admin: 12/13/19 09:37 Dose: 325 mg Documented by: Glucagon (Glucagon 1 Mg/Ml Vial) 1 mg IM PRN PRN PRN Reason: Hypoglycemia Guaifenesin/Dextromethorphan (Guaifenesin/Dm Er) 1 tab PO Q12HR [facility] Last Admin: 12/13/19 09:37 Dose: 1 tab Documented by: Guaifenesin/Dextromethorphan (Guaifenesin Dm 100-10/5 Ml Udcup) 15 ml PO Q4H PRN PRN Reason: Cough Last Admin: 12/11/19 15:33 Dose: 15 ml Documented by: Heparin Sodium (Porcine) (Heparin 5,000 Units/Ml Vial) 5,000 units SC BID [facility] Last Admin: 12/13/19 09:35 Dose: 5,000 units Documented by: Dextrose/Water (D5w) 1,000 mls @ 0 mls/hr IV .Q0M PRN PRN Reason: Hypoglycemia Cefazolin Sodium/Dextrose 2 gm (/ Device) 50 mls @ 100 mls/hr IVPB ONCALL-OR [facility] Insulin Human Lispro (Humalog 300 Units/3 Ml Vial) 0 units SC .MILD SLIDING SCALE PRN PRN Reason: Mild Correctional Scale Last Admin: 12/13/19 05:40 Dose: 2 unit Documented by: Insulin Human Lispro (Humalog 300 Units/3 Ml Vial) 0 units SC .BEDTIME SLIDING SC PRN PRN Reason: Bedtime Correctional Scale Metolazone (Metolazone 2.5 Mg Tab) 2.5 mg PO 0830 [facility] Last Admin: 12/13/19 09:37 Dose: 2.5 mg Documented by: Nicotine (Nicotine 14 Mg Patch) 14 mg TD Q24HR [facility] Last Admin: 12/12/19 13:39 Dose: 14 mg Documented by: Ondansetron HCl (Ondansetron Odt 4 Mg Tab) 4 mg PO Q6H PRN PRN Reason: Nausea/Vomiting Ondansetron HCl (Ondansetron Pf 4 Mg/2 Ml Vial) 4 mg IVP Q6H PRN PRN Reason: Nausea/Vomiting Prednisone (Prednisone 20 Mg Tab) 40 mg PO QAM[facility] Last Admin: 12/13/19 09:36 Dose: 40 mg Documented by: Pregabalin (Pregabalin 50 Mg Cap) 200 mg PO DAILY [facility] Last Admin: 12/13/19 09:36 Dose: 200 mg Documented by: Rosuvastatin Calcium (Rosuvastatin 10 Mg Tab) 10 mg PO HS [facility] Last Admin: 12/12/19 20:04 Dose: 10 mg Documented by: Sodium Chloride (Flush - Normal Saline 10 Ml Syringe) 10 ml IVF PRN PRN PRN Reason: Saline Flush Vital Signs & Weight: Vital Signs Temp Pulse Resp BP BP Pulse Ox 12/13/19 07:17 97.8 F 97 16 157/79 H 97 12/13/19 04:00 97.6 F 98 17 128/98 H 98 12/13/19 00:08 95 12/12/19 23:43 98.0 F 95 18 125/81 95 Weight 132 lb 7.965 oz - Physical Exam General: alert & oriented x3 HEENT: mucus membranes moist Cardiac: regular rhythm, other (Ectopy noted) Lungs: clear to auscultation Abdomen: soft Extremities: clubbing Musculoskeletal: other (bilateral AKAs) - Labs Result Diagrams: 12/13/19 06:10 12/13/19 06:10 Troponin/CKMB CK-MB (CK-2) 4.6 ng/mL (0-6.6) 12/09/19 10:10 Troponin I 0.155 ng/mL (< 0.028) H 12/09/19 20:08 - Assessment/Plan Assessment/Plan: 1. Acute on chronic diastolic CHF 2. Cocaine Aubse 3. NSTEMI-2 4. ESRD on HD 5. COPD 6. CAD s/p CABG and previous PCI 7. Paroxysmal AF 8. PVCs No changes overall. Ok for discharge from my standpoint when cleared by renal. Will see PRN.
--- NOTE | 2019-12-13 11:36 | PRG ---
DATE OF SERVICE: 12/13/2019 SUBJECTIVE: A 64-year-old male being seen for end-stage renal disease. The patient denies any nausea, vomiting, or chest pain. OBJECTIVE: GENERAL: The patient is awake and alert. VITAL SIGNS: Afebrile, pulse 98, breathing 16, and blood pressure 128/98. HEENT: Head normocephalic and atraumatic. Eyes intact, no ulcers. Nose intact, no ulcers. Ears intact, no ulcers. NECK: Supple. No JVD. CHEST: Symmetrical and clear. CARDIOVASCULAR: Shows S1 and S2, no rub, no murmur. GASTROINTESTINAL: Abdomen is soft, bowel sounds positive. EXTREMITIES: Show no edema or ulcers. SKIN: Shows no rash or petechiae. MUSCULOSKELETAL: Shows no joint swelling or stiffness. GENITOURINARY: Shows no Weinberg or CVA tenderness. NEUROLOGIC: Motor intact. Cranial nerves intact. LABORATORY DATA: Labs reviewed. ASSESSMENT AND PLAN: 1. Stage 6 chronic kidney disease. Continue hemodialysis per schedule. 2. Hypertension, stable. 3. Anemia, stable. 4. Medication based on GFR appropriate. Job ID: [id number]
[2019-12-13] MEDS: Nicotine 14 MG PATCH TD SCH (13:24)
[2019-12-13] MEDS: Rosuvastatin 10 MG TAB PO SCH (21:20)
[2019-12-13] MEDS: Amitriptyline HCl 25 MG TAB PO SCH (21:20)
[2019-12-14 04:35] LABS: Anion Gap 14 mmol/L (10-20); BUN (Urea Nitrogen) 32 mg/dL (8.4-25.7); Calc. Creatinine Clearance 17 mL/min (70-130); Calcium 8.2 mg/dL (7.8-10.44); Carbon Dioxide 23 mmol/L (23-31); Chloride 101 mmol/L (98-107); Estimated GFR-MDRD 20; Glucose 154 mg/dL (80-115); Potassium 4.3 mmol/L (3.5-5.1); Sodium 134 mmol/L (136-145)
[2019-12-14 04:37] LABS: Hemoglobin 13.8 g/dL (14.0-18.0); Large Platelets SLIGHT; Lymphocytes 14 % (21-51); MDiff Complete? YES; Mean Corpuscular HGB CONC 32.2 g/dL (32.0-36.0); Mean Corpuscular Hemoglobin 29.1 pg (27.0-31.0); Mean Corpuscular Volume 90.5 fL (78.0-98.0); Mean Platelet Volume 12.4 fL (7.4-10.4); Monocytes 5 % (0-10); Neutrophil 81 % (42-75); Platelet Count 132 thou/uL (130-400); Platelet Morphology Comment Appears Adequate; RBC Distribution Width 14.3 % (11.5-14.5); Red Blood Cell (RBC) Count 4.72 mill/uL (4.70-6.10); White Blood Cell (WBC) Count 14.5 thou/uL (4.8-10.8)
--- NOTE | 2019-12-14 05:55 | PDOC.FM ---
- Subjective Subjective: Mr. Calderon is doing well this morning. He says his breathing has improved and he is wondering when he gets to leave. - Objective Vital Signs & Weight: Vital Signs (12 hours) Temp Pulse Resp BP BP Pulse Ox 12/14/19 04:00 98.0 F 96 16 160/87 H 97 12/14/19 00:56 96 12/14/19 00:00 92 153/84 H 12/13/19 20:00 97.8 F 94 20 115/80 96 12/13/19 17:56 97.8 F 104 H 16 131/72 97 Weight Weight 59.421 kg I&O: 12/12/19 12/13/19 12/14/19 06:59 06:59 06:59 Intake Total 600 1200 1000 Output Total 1210 1675 1800 Balance -579 -271 -809 Result Diagrams: 12/14/19 03:36 12/14/19 03:36 EKG Reviewed by me: Yes (tele: 5 beats Vtach) Phys Exam - Physical Examination Constitutional: NAD HEENT: moist MMs, sclera anicteric Neck: full ROM Respiratory: no wheezing, clear to auscultation bilateral Cardiovascular: no significant murmur increased rate Gastrointestinal: soft, non-tender hernia Musculoskeletal: no edema, pulses present Neurological: moves all 4 limbs Psychiatric: normal affect, A&O x 3 Dx/Plan (1) COPD exacerbation Code(s): J44.1 - CHRONIC OBSTRUCTIVE PULMONARY DISEASE W (ACUTE) EXACERBATION Status: Acute (2) Acute exacerbation of CHF (congestive heart failure) Code(s): I50.9 - HEART FAILURE, UNSPECIFIED Status: Acute (3) Acute on chronic renal failure Code(s): N17.9 - ACUTE KIDNEY FAILURE, UNSPECIFIED; N18.9 - CHRONIC KIDNEY DISEASE, UNSPECIFIED Status: Acute (4) Elevated troponin Code(s): R74.8 - ABNORMAL LEVELS OF OTHER SERUM ENZYMES Status: Acute (5) Pulmonary edema with congestive heart failure Code(s): I50.1 - LEFT VENTRICULAR FAILURE, UNSPECIFIED Status: Acute (6) CKD (chronic kidney disease) stage 3, GFR 30-59 ml/min Code(s): N18.3 - CHRONIC KIDNEY DISEASE, STAGE 3 (MODERATE) * DO NOT USE * Status: Chronic (7) DM2 (diabetes mellitus, type 2) Status: Chronic (8) HLD (hyperlipidemia) Code(s): E78.5 - HYPERLIPIDEMIA, UNSPECIFIED Status: Chronic Qualifiers: (9) HTN (hypertension) Code(s): I10 - ESSENTIAL (PRIMARY) HYPERTENSION Status: Chronic (10) Tobacco abuse Code(s): Z72.0 - TOBACCO USE Status: Chronic - Plan Plan: 54 yo M with history of COPD, CHF, HTN, DMII presenting for worsening productive cough and SOB of 4 day duration Acute on chronic COPD exacerbation Improved air movement. -Make duonebs PRN instead of scheduled -prednisone (day 07/07) - will DC today -Procal wnl, mild exacerbation and azithromycin not indicated at this time Acute on chronic HFpEF exacerbation -BNP 1164, CXR: worsening congestion and b/l pulmonary edema, April ECHO: 50- 55% EF, IV lasix in ED -1800mL out yesterday, -800 balance -strict I/Os -daily weights -Consult: Roger (Nephro) - Zaroxolyn, on dialysis -Consult: Roque (Cards) - stable and ready for discharge from their standpoint -ECHO: EF 50-55%, mod MR WILLIS on CKD -Cr 4.38, 4.4, 3.79, baseline ~2.5 -Encourage PO fluids -Consult: Roger (Nephro) - On dialysis, getting outpatient dialysis set up. -Consult: Xu (gen surg) - placed temporary fem vein dialysis catheter 12/10. Tunnel and fistula next week. Afib w/RVR vs. recurrent PACs -Consult: Radha (Sumeet) - reviewed EKG and believes rhythm is recurrent PACs and not Afib. Consider clonidine for better BP control. -restarted home diltiazem and amiodarone -HR 80-90s, 5 beats of Vtach -Continue to monitor on tele Elevated troponins -chronically elevated. History of bypass surgery, angioplasty, stent. Has seen Armani Morales in the past. -0.154, 0.156, 0.161, 0.155 -no ST changes on EKG -ECHO: 50-55%, mod MR -Cards recs per Dr. Morales: UDS (positive for tricyclics, cocaine, cannabino ids), resume home meds HTN -160-170s/80s -Will increase coreg today -Continue home medications HLD - aware, restart home medication DMII -A1c 5.6 -mild SSI -CC diet Nicotine dependance -Nicotine patch Marijuana use disorder -Reports daily use -Smoking cessation education PCP: CORRIE Torres) Code: FULL Diet: CC 1999 DVTPPx: heparin Dispo: eLOS >48hrs. Discharge pending placement of fistula next week and set up of outpatient dialysis. Addendum - Attending - Attending Attestation Date/Time: 12/14/19 0509 I personally evaluated the patient and discussed the management with Dr. Saucedo. I agree with the History, Examination, Assessment and Plan documented above with any addition or exceptions noted below. Pt is stable from copd and chf standpoint. Awaiting dialysis fistula placement and outpt dialysis to be set up.
[2019-12-14] MEDS: Amiodarone 200 MG TAB PO SCH (08:46)
[2019-12-14] MEDS: predniSONE 20 MG TAB PO SCH (08:47)
[2019-12-14] MEDS: Carvedilol 3.125 MG TAB PO SCH ×2 (08:47→21:31)
[2019-12-14] MEDS: Amlodipine 5 MG TAB PO SCH (08:47)
[2019-12-14] MEDS: Metolazone 2.5 MG TAB PO SCH (08:47)
[2019-12-14] MEDS: guaiFENesin/DM ER PO SCH ×2 (08:48→21:32)
[2019-12-14] MEDS: Pregabalin 50 MG CAP PO SCH (08:48)
[2019-12-14] MEDS: Ferrous Sulfate 325 MG TAB PO SCH (08:48)
[2019-12-14] MEDS: Heparin 5,000 UNITS/ML VIAL SC SCH ×2 (08:49→21:32)
[2019-12-14] MEDS: HumaLOG 300 UNITS/3 ML VIAL SC PRN ×3 (11:15→21:32)
--- NOTE | 2019-12-14 11:27 | PDOC.CPN ---
- Subjective Date: 12/14/19 Time: 11:25 Interval history: Now overnight events. Overall feels fine. - Review of Systems General: denies: fever/chills, weight/appetite/sleep changes, night sweats, fatigue Respiratory: denies: cough, congestion, shortness of breath, exercise intolerance Cardiovascular: denies: chest pain, palpitation, edema, paroxysmal nocturnal dyspnea, orthopnea Gastrointestinal: denies: nausea, vomiting, diarrhea, constipation, abd pain, GI bleeding Musculoskeletal: denies: pain, tenderness, stiffness, swelling, arthritis/arthralgias Neurological: denies: numbness, syncope, seizure, weakness - Objective Allergies/Adverse Reactions: Allergies Allergy/AdvReac Type Severity Reaction Status Date / Time No Known Allergies Allergy Verified 05/24/19 15:36 Visit Medications: Current Medications Acetaminophen (Acetaminophen 325 Mg Tab) 650 mg PO Q4H PRN PRN Reason: Headache/Fever/Mild Pain (1-3) Albuterol/Ipratropium (Ipratropium/Albuterol Sulfate 3 Ml Neb) 3 ml NEB Q4JE-ST PRN PRN Reason: SOB &/or Wheezing Last Admin: 12/12/19 08:02 Dose: 3 ml Documented by: Amiodarone HCl (Amiodarone 200 Mg Tab) 200 mg PO DAILY [facility] Last Admin: 12/14/19 08:46 Dose: 200 mg Documented by: Amitriptyline HCl (Amitriptyline Hcl 25 Mg Tab) 25 mg PO HS [facility] Last Admin: 12/13/19 21:20 Dose: 25 mg Documented by: Amlodipine Besylate (Amlodipine 5 Mg Tab) 5 mg PO DAILY [facility] Last Admin: 12/14/19 08:47 Dose: 5 mg Documented by: Carvedilol (Carvedilol 3.125 Mg Tab) 6.25 mg PO BID [facility] Last Admin: 12/14/19 08:47 Dose: 6.25 mg Documented by: Dextrose/Water (Dextrose 50% Abboject 50 Ml Syringe) 25 gm SLOW IVP PRN PRN PRN Reason: Hypoglycemia Diltiazem HCl (Diltiazem Hcl 30 Mg Tablet) 30 mg PO Q6HR [facility] Last Admin: 12/14/19 11:14 Dose: 30 mg Documented by: Ferrous Sulfate (Ferrous Sulfate 325 Mg Tab) 325 mg PO DAILY [facility] Last Admin: 12/14/19 08:48 Dose: 325 mg Documented by: Glucagon (Glucagon 1 Mg/Ml Vial) 1 mg IM PRN PRN PRN Reason: Hypoglycemia Guaifenesin/Dextromethorphan (Guaifenesin/Dm Er) 1 tab PO Q12HR [facility] Last Admin: 12/14/19 08:48 Dose: 1 tab Documented by: Guaifenesin/Dextromethorphan (Guaifenesin Dm 100-10/5 Ml Udcup) 15 ml PO Q4H PRN PRN Reason: Cough Last Admin: 12/11/19 15:33 Dose: 15 ml Documented by: Heparin Sodium (Porcine) (Heparin 5,000 Units/Ml Vial) 5,000 units SC BID [facility] Last Admin: 12/14/19 08:49 Dose: 5,000 units Documented by: Dextrose/Water (D5w) 1,000 mls @ 0 mls/hr IV .Q0M PRN PRN Reason: Hypoglycemia Cefazolin Sodium/Dextrose 2 gm (/ Device) 50 mls @ 100 mls/hr IVPB ONCALL-OR [facility] Insulin Human Lispro (Humalog 300 Units/3 Ml Vial) 0 units SC .MILD SLIDING SCALE PRN PRN Reason: Mild Correctional Scale Last Admin: 12/14/19 11:15 Dose: 4 unit Documented by: Insulin Human Lispro (Humalog 300 Units/3 Ml Vial) 0 units SC .BEDTIME SLIDING SC PRN PRN Reason: Bedtime Correctional Scale Last Admin: 12/13/19 21:21 Dose: 4 unit Documented by: Metolazone (Metolazone 2.5 Mg Tab) 2.5 mg PO 0830 [facility] Last Admin: 12/14/19 08:47 Dose: 2.5 mg Documented by: Nicotine (Nicotine 14 Mg Patch) 14 mg TD Q24HR [facility] Last Admin: 12/13/19 13:24 Dose: Not Given Documented by: Ondansetron HCl (Ondansetron Odt 4 Mg Tab) 4 mg PO Q6H PRN PRN Reason: Nausea/Vomiting Ondansetron HCl (Ondansetron Pf 4 Mg/2 Ml Vial) 4 mg IVP Q6H PRN PRN Reason: Nausea/Vomiting Prednisone (Prednisone 20 Mg Tab) 40 mg PO [facility] Last Admin: 12/14/19 08:47 Dose: 40 mg Documented by: Pregabalin (Pregabalin 50 Mg Cap) 200 mg PO DAILY [facility] Last Admin: 12/14/19 08:48 Dose: 200 mg Documented by: Rosuvastatin Calcium (Rosuvastatin 10 Mg Tab) 10 mg PO HS [facility] Last Admin: 12/13/19 21:20 Dose: 10 mg Documented by: Sodium Chloride (Flush - Normal Saline 10 Ml Syringe) 10 ml IVF PRN PRN PRN Reason: Saline Flush Vital Signs & Weight: Vital Signs Temp Pulse Resp BP BP Pulse Ox 12/14/19 11:18 97.6 F 92 18 137/76 95 12/14/19 06:54 97.7 F 92 18 164/97 H 97 12/14/19 04:00 98.0 F 96 16 160/87 H 97 12/14/19 00:56 96 12/14/19 00:00 92 153/84 H Weight 131 lb - Physical Exam General: alert & oriented x3, appears well, no apparent distress HEENT: mucus membranes moist Neck: supple neck Cardiac: regular rate and rhythm Lungs: normal breath sounds Neuro: grossly intact Abdomen: soft Extremities: no edema Skin: clear Musculoskeletal: no pain, other (bilateral AKA) - Labs Result Diagrams: 12/14/19 03:36 12/14/19 03:36 Troponin/CKMB CK-MB (CK-2) 4.6 ng/mL (0-6.6) 12/09/19 10:10 Troponin I 0.155 ng/mL (< 0.028) H 12/09/19 20:08 - Assessment/Plan Assessment/Plan: 1. Acute on chronic diastolic CHF 2. Cocaine Aubse 3. NSTEMI-2 4. ESRD on HD 5. COPD 6. CAD s/p CABG and previous PCI 7. Paroxysmal AF 8. PVCs Patient without complaint. Awaiting fistula placement and arrangement of outpatient. HD. No changes.
[2019-12-14] MEDS: Nicotine 14 MG PATCH TD SCH (11:34)
--- NOTE | 2019-12-14 12:48 | PRG ---
DATE OF SERVICE: SUBJECTIVE: A 64-year-old male, being seen for end-stage kidney disease. The patient denies any nausea, vomiting, or chest pain. PHYSICAL EXAMINATION: General: The patient is awake and alert. Vital Signs: Afebrile, pulse 75, breathing 16, blood pressure 110/74. HEENT: Head normocephalic and atraumatic. Eyes intact, no ulcers. Nose intact, no ulcers. Ears intact, no ulcers. Neck: Supple. No JVD. Chest: Symmetrical and clear. Cardiovascular: Shows S1 and S2, no rub, no murmur. Gastrointestinal: Abdomen is soft, bowel sounds positive. Extremities: Show no edema or ulcers. Skin: Shows no rash or petechiae. Musculoskeletal: Shows no joint swelling or stiffness. Genitourinary: Shows no Weinberg or CVA tenderness. Neurologic: Motor intact. Cranial nerves intact. General: Physical exam. LABORATORY DATA: Reviewed. ASSESSMENT AND PLAN: 1. Stage 6 chronic kidney disease. Plan dialysis tomorrow. 2. Hypertension, stable. 3. Anemia, stable. 4. Medication based on GFR appropriate. Job ID: [id number]
[2019-12-14] MEDS ORDERED: Tuberculin PPD 0.1 ML VIAL I-DERMAL SCH (16:30)
[2019-12-14] MEDS ORDERED: Dextrose 5% in Water 1,000 ML IV PRN (21:22)
[2019-12-14] MEDS ORDERED: Dextrose 50% Abboject 50 ML SYRINGE SLOW IVP PRN (21:22)
[2019-12-14] MEDS: Amitriptyline HCl 25 MG TAB PO SCH (21:31)
[2019-12-14] MEDS: Rosuvastatin 10 MG TAB PO SCH (21:32)
--- NOTE | 2019-12-15 06:33 | PDOC.FM ---
- Subjective Subjective: Mr. Calderon is tired this morning. He denies CP or SOB. - Objective Vital Signs & Weight: Vital Signs (12 hours) Temp Pulse Resp BP BP Pulse Ox 12/15/19 04:00 97.8 F 81 18 140/89 98 12/14/19 20:00 98.4 F 87 20 132/81 95 Weight Weight 58.967 kg I&O: 12/13/19 12/14/19 12/15/19 06:59 06:59 06:59 Intake Total 1200 1000 1200 Output Total 1675 1800 525 Balance -475 -800 675 Result Diagrams: 12/14/19 03:36 12/14/19 03:36 EKG Reviewed by me: Yes (tele: 9 and 4 beats of Vtach) Phys Exam - Physical Examination Constitutional: NAD HEENT: moist MMs, sclera anicteric Neck: full ROM Respiratory: no wheezing, clear to auscultation bilateral Cardiovascular: RRR, no significant murmur Gastrointestinal: soft, non-tender ventral hernia Musculoskeletal: no edema, pulses present Neurological: moves all 4 limbs Psychiatric: normal affect, A&O x 3 Dx/Plan (1) COPD exacerbation Code(s): J44.1 - CHRONIC OBSTRUCTIVE PULMONARY DISEASE W (ACUTE) EXACERBATION Status: Acute (2) Acute exacerbation of CHF (congestive heart failure) Code(s): I50.9 - HEART FAILURE, UNSPECIFIED Status: Acute (3) Acute on chronic renal failure Code(s): N17.9 - ACUTE KIDNEY FAILURE, UNSPECIFIED; N18.9 - CHRONIC KIDNEY DISEASE, UNSPECIFIED Status: Acute (4) Elevated troponin Code(s): R74.8 - ABNORMAL LEVELS OF OTHER SERUM ENZYMES Status: Acute (5) Pulmonary edema with congestive heart failure Code(s): I50.1 - LEFT VENTRICULAR FAILURE, UNSPECIFIED Status: Acute (6) CKD (chronic kidney disease) stage 3, GFR 30-59 ml/min Code(s): N18.3 - CHRONIC KIDNEY DISEASE, STAGE 3 (MODERATE) * DO NOT USE * Status: Chronic (7) DM2 (diabetes mellitus, type 2) Status: Chronic (8) HLD (hyperlipidemia) Code(s): E78.5 - HYPERLIPIDEMIA, UNSPECIFIED Status: Chronic Qualifiers: (9) HTN (hypertension) Code(s): I10 - ESSENTIAL (PRIMARY) HYPERTENSION Status: Chronic (10) Tobacco abuse Code(s): Z72.0 - TOBACCO USE Status: Chronic - Plan Plan: 54 yo M with history of COPD, CHF, HTN, DMII presenting for worsening productive cough and SOB of 4 day duration Acute on chronic COPD exacerbation Improved air movement. -Make duonebs PRN instead of scheduled -completed 5 days of prednisone -Procal wnl, mild exacerbation and azithromycin not indicated at this time Acute on chronic HFpEF exacerbation -BNP 1164, CXR: worsening congestion and b/l pulmonary edema, April ECHO: 50- 55% EF, IV lasix in ED -strict I/Os -daily weights -Consult: Roger (Nephro) - Zaroxolyn, dialysis today -Consult: Roque (Sumeet) - stable and ready for discharge from their standpoint -ECHO: EF 50-55%, mod MR WILLIS on CKD -Cr 4.38, 4.4, 3.79, baseline ~2.5 -Encourage PO fluids -Consult: Roger (Nephro) - dialysis today -Consult: Xu (gen surg) - placed temporary fem vein dialysis catheter 12/10. Tunnel and fistula next week. Afib w/RVR vs. recurrent PACs -Consult: Radha (Sumeet) - reviewed EKG and believes rhythm is recurrent PACs and not Afib. Consider clonidine for better BP control. -restarted home diltiazem and amiodarone -HR 80-90s, 5 beats of Vtach -Continue to monitor on tele Elevated troponins -chronically elevated. History of bypass surgery, angioplasty, stent. Has seen Dr. Morales in the past. -0.154, 0.156, 0.161, 0.155 -no ST changes on EKG -ECHO: 50-55%, mod MR -Cards recs per Dr. Morales: UDS (positive for tricyclics, cocaine, cannabinoids), resume home meds HTN -160-170s/80s -Will increase coreg today -Continue home medications HLD - aware, restart home medication DMII -A1c 5.6 -mild SSI -CC diet Nicotine dependance -Nicotine patch Marijuana use disorder -Reports daily use -Smoking cessation education PCP: CORRIE Torres) Code: FULL Diet: CC 1999 DVTPPx: heparin Dispo: eLOS >48hrs. Discharge pending placement of fistula next week and set up of outpatient dialysis.
[2019-12-15] MEDS: HumaLOG 300 UNITS/3 ML VIAL SC PRN ×2 (06:57→17:11)
[2019-12-15] MEDS ORDERED: Heparin 10,000 UNITS/ 10 ML VIAL ONE (08:53)
[2019-12-15] MEDS: guaiFENesin/DM ER PO SCH ×2 (11:43→20:59)
[2019-12-15] MEDS: Carvedilol 3.125 MG TAB PO SCH ×2 (11:43→20:59)
[2019-12-15] MEDS: Heparin 5,000 UNITS/ML VIAL SC SCH ×2 (11:43→20:59)
--- NOTE | 2019-12-15 11:53 | PRG ---
DATE OF SERVICE: 12/15/2019 SUBJECTIVE: Patient was seen and examined at bedside and overnight events noted. Patient denies any shortness of breath or chest pain or palpitation. No history of nausea or vomiting or diarrhea or fever or chills or cramps. OBJECTIVE: GENERAL: This is a well-built male, in no apparent distress. VITAL SIGNS: Temperature 97.8. Heart rate 81. Respiratory rate 18. Blood pressure 140/89. HEENT: Atraumatic, normocephalic. Oral mucosa is moist. NECK: Supple. CARDIOVASCULAR: S1, S2 heard. Rate and rhythm regular. RESPIRATORY: Clear to auscultation. GASTROINTESTINAL: Abdomen is soft. MUSCULOSKELETAL: No tenderness. No edema. DERMATOLOGIC: No skin rash. NEUROLOGIC: Alert and awake and oriented x3. No focal neurologic deficits. Moving all the extremities. PSYCHIATRIC: Mood and affect normal. LABORATORY DATA: No labs done today. ASSESSMENT AND PLAN: 1. End-stage renal disease. Continue dialysis on Sunday, Sunday, and Sunday. 2. Hypertension. 3. Anemia. 4. Edema. Plan to have dialysis as tolerated. Job ID: [id number]
[2019-12-15 12:37] LABS: HCV log10 5.919 (.); Hep C PCR-Quant 829000 IU/mL (.)
[2019-12-15] MEDS: Amlodipine 5 MG TAB PO SCH (12:41)
[2019-12-15] MEDS: Metolazone 2.5 MG TAB PO SCH (12:41)
[2019-12-15] MEDS: Amiodarone 200 MG TAB PO SCH (12:41)
[2019-12-15] MEDS: Ferrous Sulfate 325 MG TAB PO SCH (12:41)
[2019-12-15] MEDS: Nicotine 14 MG PATCH TD SCH (12:43)
[2019-12-15] MEDS: Pregabalin 50 MG CAP PO SCH (12:43)
--- NOTE | 2019-12-15 14:01 | PRG ---
DATE OF SERVICE: 12/15/2019 Mr. Calderon was initially admitted with a heart failure exacerbation as well as atrial fibrillation with RVR. He is also not currently undergoing every Sunday, Sunday, Sunday dialysis. He also has a history of COPD and has had recent exacerbation. We are continuing to monitor and treat also his type 2 diabetes. Job ID: [id number]
[2019-12-15] MEDS: Amitriptyline HCl 25 MG TAB PO SCH (20:59)
[2019-12-15] MEDS: Rosuvastatin 10 MG TAB PO SCH (20:59)
[2019-12-16 04:13] LABS: #Eosinphils 0.2 thou/uL (0.0-0.7); #Lymphocytes 2.8 thou/uL (1.20-3.40); #Monocytes 1.1 thou/uL (0.11-0.59); #Neutrophils 9.2 thou/uL (1.40-6.50); %Basophils 0.3 % (0.0-1.0); %Eosinophils 1.2 % (0.0-10.0); %Lymphocytes 20.9 % (21.0-51.0); %Monocytes 8.3 % (0.0-10.0); %Neutrophils 69.3 % (42.0-75.0); Hemoglobin 14.6 g/dL (14.0-18.0); Mean Corpuscular Hemoglobin 28.4 pg (27.0-31.0); Mean Corpuscular Volume 91.6 fL (78.0-98.0); Platelet Count 146 thou/uL (130-400); RBC Distribution Width 14.2 % (11.5-14.5); Red Blood Cell (RBC) Count 5.13 mill/uL (4.70-6.10); White Blood Cell (WBC) Count 13.3 thou/uL (4.8-10.8)
[2019-12-16 04:24] LABS: ALT (SGPT) 54 U/L (8-55); AST (SGOT) 50 U/L (5-34); Alkaline Phosphatase 100 U/L (40-110); Anion Gap 11 mmol/L (10-20); BUN (Urea Nitrogen) 32 mg/dL (8.4-25.7); Bilirubin, Total 0.3 mg/dL (0.2-1.2); Calc. Creatinine Clearance 18 mL/min (70-130); Calcium 8.1 mg/dL (7.8-10.44); Carbon Dioxide 25 mmol/L (23-31); Chloride 99 mmol/L (98-107); Estimated GFR-MDRD 21; Globulin 3.1 g/dL (2.4-3.5); Glucose 172 mg/dL (80-115); Potassium 4.2 mmol/L (3.5-5.1); Protein, Total 6.1 g/dL (5.8-8.1); Sodium 131 mmol/L (136-145)
--- NOTE | 2019-12-16 06:28 | PDOC.FM ---
- Subjective Subjective: Mr. Calderon denies SOB or CP this morning. He says dialysis has been going well. He is anxious to get out of the hospital and go home. - Objective Vital Signs & Weight: Vital Signs (12 hours) Temp Pulse Resp BP Pulse Ox 12/16/19 04:00 97.9 F 88 18 143/94 H 94 L 12/15/19 20:00 97.7 F 86 18 130/63 97 Weight Weight 58.967 kg I&O: 12/14/19 12/15/19 12/16/19 06:59 06:59 06:59 Intake Total 1000 1200 1200 Output Total 5607 187 0750 Balance -800 675 -1480 Result Diagrams: 12/16/19 03:53 12/16/19 03:53 EKG Reviewed by me: Yes (tele: SR w/ ST depression) Phys Exam - Physical Examination Constitutional: NAD HEENT: moist MMs, sclera anicteric Neck: no nodes, supple Respiratory: no wheezing, no rales, no rhonchi, clear to auscultation bilateral Cardiovascular: RRR, no significant murmur, no rub Gastrointestinal: soft, non-tender hernia Musculoskeletal: no edema, pulses present Neurological: moves all 4 limbs Psychiatric: normal affect, A&O x 3 Dx/Plan (1) COPD exacerbation Code(s): J44.1 - CHRONIC OBSTRUCTIVE PULMONARY DISEASE W (ACUTE) EXACERBATION Status: Acute (2) Acute exacerbation of CHF (congestive heart failure) Code(s): I50.9 - HEART FAILURE, UNSPECIFIED Status: Acute (3) Acute on chronic renal failure Code(s): N17.9 - ACUTE KIDNEY FAILURE, UNSPECIFIED; N18.9 - CHRONIC KIDNEY DISEASE, UNSPECIFIED Status: Acute (4) Elevated troponin Code(s): R74.8 - ABNORMAL LEVELS OF OTHER SERUM ENZYMES Status: Acute (5) Pulmonary edema with congestive heart failure Code(s): I50.1 - LEFT VENTRICULAR FAILURE, UNSPECIFIED Status: Acute (6) CKD (chronic kidney disease) stage 3, GFR 30-59 ml/min Code(s): N18.3 - CHRONIC KIDNEY DISEASE, STAGE 3 (MODERATE) * DO NOT USE * Status: Chronic (7) DM2 (diabetes mellitus, type 2) Status: Chronic (8) HLD (hyperlipidemia) Code(s): E78.5 - HYPERLIPIDEMIA, UNSPECIFIED Status: Chronic Qualifiers: (9) HTN (hypertension) Code(s): I10 - ESSENTIAL (PRIMARY) HYPERTENSION Status: Chronic (10) Tobacco abuse Code(s): Z72.0 - TOBACCO USE Status: Chronic - Plan Plan: 54 yo M with history of COPD, CHF, HTN, DMII presenting for worsening productive cough and SOB of 4 day duration Acute on chronic COPD exacerbation Improved air movement. -Make duonebs PRN instead of scheduled -completed 5 days of prednisone -Procal wnl, mild exacerbation and azithromycin not indicated at this time Acute on chronic HFpEF exacerbation -BNP 1164, CXR: worsening congestion and b/l pulmonary edema, April ECHO: 50- 55% EF, IV lasix in ED -strict I/O, daily weights -Consult: Roger (Nephro) - Zaroxolyn, dialysis MWF -Consult: Roque (Sumeet) - stable and ready for discharge from their standpoint -ECHO: EF 50-55%, mod MR WILLIS on CKD -Cr 3.54, baseline ~2.5 -Encourage PO fluids -Consult: Roger (Nephro) - dialysis MWF, setting up outpatient dialysis pending insurance approval -Consult: Xu (gen surg) - placed temporary fem vein dialysis catheter 12/10. Fistula today. Afib w/RVR vs. recurrent PACs -Consult: Radha Silverio) - stable and ready for discharge from their standpoint -restarted home diltiazem and amiodarone -HR 80-90s, 5 beats of Vtach -Continue to monitor on tele Elevated troponins -chronically elevated. History of bypass surgery, angioplasty, stent. Has seen Dr. Morales in the past. -0.154, 0.156, 0.161, 0.155 -no ST changes on EKG -ECHO: 50-55%, mod MR -Cards recs per Dr. Morales: stable HTN -140s/90s -Continue home medications -consider clonidine for better BP control HLD - aware, restart home medication DMII -A1c 5.6 -mild SSI -CC diet Nicotine dependance -Nicotine patch Marijuana use disorder -Reports daily use -Smoking cessation education PCP: CORRIE Torres) Code: FULL Diet: CC 1999 DVTPPx: heparin Dispo: Discharge pending fistula placement and outpatient dialysis set up.
[2019-12-16] MEDS: Heparin 5,000 UNITS/ML VIAL SC SCH ×2 (08:58→20:46)
[2019-12-16] MEDS: Amlodipine 5 MG TAB PO SCH (09:01)
[2019-12-16] MEDS: Ferrous Sulfate 325 MG TAB PO SCH (09:01)
[2019-12-16] MEDS: Carvedilol 3.125 MG TAB PO SCH ×2 (09:01→20:45)
[2019-12-16] MEDS: Amiodarone 200 MG TAB PO SCH (09:01)
[2019-12-16] MEDS: Pregabalin 50 MG CAP PO SCH (09:01)
[2019-12-16] MEDS: Metolazone 2.5 MG TAB PO SCH (09:01)
[2019-12-16] MEDS: guaiFENesin/DM ER PO SCH ×2 (09:02→20:45)
[2019-12-16] MEDS ORDERED: Bupivacaine HCl 0.5%/Epinephrine 1:200,000/PF 30 ml Vial ONE ×2 (09:30→13:55)
[2019-12-16] MEDS ORDERED: Acetaminophen 500 MG TAB PO PRN (09:39)
[2019-12-16] MEDS ORDERED: traMADol HCl 50 MG TAB PO PRN (09:39)
[2019-12-16] MEDS: Nicotine 14 MG PATCH TD SCH (11:17)
--- NOTE | 2019-12-16 11:46 | PRG ---
DATE OF SERVICE: 12/16/2019 SUBJECTIVE: Patient was seen and examined at bedside and overnight events noted. Patient denies any shortness of breath or chest pain or palpitation. No history of nausea or vomiting or diarrhea or fever or chills or cramps. OBJECTIVE: GENERAL: This is a well-built male, in no apparent distress. VITAL SIGNS: Temperature 98.2. Heart rate 80. Respiratory rate 16. Blood pressure 142/80. HEENT: Atraumatic, normocephalic. Oral mucosa is moist. NECK: Supple. CARDIOVASCULAR: S1, S2 heard. Rate and rhythm regular. RESPIRATORY: Clear to auscultation. GASTROINTESTINAL: Abdomen is soft. MUSCULOSKELETAL: No tenderness. No edema. DERMATOLOGIC: No skin rash. NEUROLOGIC: Alert and awake and oriented x3. No focal neurologic deficits. Moving all the extremities. PSYCHIATRIC: Mood and affect normal. LABORATORY DATA: Potassium 4.2, BUN is 32, and creatinine is 3.5. ASSESSMENT AND PLAN: 1. End-stage renal disease. Continue dialysis on Sunday, Sunday, and Sunday. Patient going for surgery today. Follow with director of casework services for outpatient. 2. History of hypertension. 3. Anemia of chronic kidney disease. 4. Edema. Remove fluid. 5. Hyponatremia. Limit fluid intake. 6. Hypoalbuminemia, moderate. We will continue on dialysis. Follow with Case Management for outpatient placement. Job ID: [id number] MTDD
[2019-12-16] MEDS ORDERED: Fentanyl 100 MCG/2 ML VIAL ONE ×2 (12:01→14:53)
[2019-12-16] MEDS ORDERED: Propofol 500 MG/50 ML VIAL ONE (13:53)
[2019-12-16] MEDS ORDERED: Midazolam HCl 2 mg/2 ml Vial ONE (13:53)
[2019-12-16] MEDS ORDERED: Heparin 5,000 UNITS/ML VIAL ONE (13:55)
[2019-12-16] MEDS ORDERED: Protamine Sulfate 50 MG/5 ML VIAL ONE (13:55)
[2019-12-16] MEDS ORDERED: Sodium Chloride 0.9% 0 ML ONE (13:55)
--- NOTE | 2019-12-16 14:09 | PRG ---
DATE OF SERVICE: 12/16/2019 I have reviewed the note of Dr. Carlos Saucedo and discussed it with her. I agree with her assessment and plan. Job ID: [id number]
[2019-12-16] MEDS: READ PPD TEST SITE PO SCH (14:22)
--- NOTE | 2019-12-16 14:28 | PQF ---
CLINICAL DOCUMENTATION CLARIFICATION FORM: Dear Dr. Saucedo/ Attending Dr. Gonzalez Date: 12/16/2019 Please exercise your independent, professional judgment in responding to the clarification form. Clinical indicators are provided on the bottom of this form for your review. Please check appropriate box(es): AMI TYPE: [ ] Type 2 CT (T2MI) secondary to heart failure [ ] Type 2 CT (T2MI) secondary to renal failure [ ] Type 2 CT (T2MI) secondary to hypertension [ ] Type 2 CT (T2MI) secondary to other [ x ] Other diagnosis: demand ischemia secondary to CHF exacerbation [ ] Unable to determine In addition, please specify: Present on Admission (POA): [ x ] Yes [ ] No [ ] Unable to determine For continuity of documentation, please document condition throughout progress notes and discharge summary. Thank You. To be completed by CDI/Coding staff for physician review: CLINICAL INDICATORS - SIGNS / SYMPTOMS / LABS / RESULTS AND LOCATION IN EMR *12/09 Consult (Bailey) Impression: Hx of abnormal cardiac enzymes and elevated troponin 1, he apparently has a chronic elevation of the cardiac enzymes and this most likely is due to demand ischemia associated with his CHF exacerbation. *12/12 pn (/) A/P: Acute on chronic diastolic CHF Cocaine Abuse NSTEMI 2 *12/13 pn (Lizzy/Bailey) NSTEMI 2 *12/14 pn (Sheryl) Plan: Elevated troponins -chronically elevated -0.154, 0.156, 0.161, 0155 -no ST changes on EKG RISKS / RESULTS AND LOCATION IN EMR *H&P 12/08 (Sheryl) PMH of COPD, CHF, HTN, DM2. *12/10 pn (Sheryl) Dx/Plan: Acute exacerbation of CHF. *12/14 pn (Vasudedawit) A/P: ESRD TREATMENTS / RESULTS AND LOCATION IN EMR *Cardiology Consult 12/09 *Order 12/08: Lasix 40 mg IVP 0600, 1400 *Order 12/10: Lasix 40 mg IVP now Thank you, Pat Bruno RN, BSN [email or web address] This is a permanent part of the Medical Record [facility]
[2019-12-16] MEDS ORDERED: Lidocaine 1% (PF) 30 ML VIAL ONE (14:33)
[2019-12-16] MEDS ORDERED: Heparin 10,000 UNITS/ 10 ML VIAL ONE (14:40)
[2019-12-16] MEDS ORDERED: Ondansetron HCl/PF 4 MG/2 ML Vial IVP PRN (16:35)
[2019-12-16] MEDS ORDERED: Promethazine HCl 25 MG/ML VIAL SLOW IVP PRN (16:35)
--- NOTE | 2019-12-16 17:09 | RAD ---
XR Chest 1 View Portable HISTORY: Dialysis catheter placement COMPARISON: 12/09/2019 FINDINGS: There are changes of median sternotomy. There is a left internal jugular central venous cat heter with tip in the projection of the cavoatrial junction. A right-sided dialysis catheter is seen with tip in the projection of the SVC. No pneumothoraces are seen. There are bibasilar airspace densities with accompanying pleural effusions, left larger than right.
[2019-12-16] MEDS: Amitriptyline HCl 25 MG TAB PO SCH (20:45)
[2019-12-16] MEDS: Rosuvastatin 10 MG TAB PO SCH (20:45)
--- NOTE | 2019-12-16 23:33 | OP ---
DATE OF PROCEDURE: 12/16/2019 PREOPERATIVE DIAGNOSES: 1. End-stage renal disease. 2. Poor IV access. POSTOPERATIVE DIAGNOSES: 1. End-stage renal disease. 2. Poor IV access. PROCEDURES PERFORMED: Right IJ cuffed tunneled dialysis catheter, left IJ central line, right arm exploration noting absence of adequate vein and a right upper arm dialysis, PTFE graft placed, brachial artery to axillary vein, tapered 4T06. ANESTHESIA: Regional, local, and TIVA 0.5% Marcaine with epinephrine 30 mL mixed with 1% xylocaine 10 mL. DESCRIPTION OF PROCEDURE: The patient was taken to the operating room where under right arm regional and intravenous sedation, neck and chest and right upper extremity were clipped of hair, prepared with ChloraPrep and draped in routine fashion. Local anesthetic mixture was infiltrated into the skin and subcutaneous tissue about the operative sites. Using ultrasound guidance, the right and left internal jugular veins were cannulated with trocar catheter. J-wire was threaded. Trocar catheter was removed. Skin site enlarged sharply on both sides. Stab incision was made over the right chest. A cuffed tunneled hemodialysis catheter tunneled between 2 incisions, placed the fabric cuff beneath the skin exit site, catheter was secured with 2 interrupted suture of 3-0 nylon and sterile dressing applied. Small and medium size dilators were placed over the J-wire into the internal jugular vein and removed. Dilator and Peel-Away sheath placed with J-wire in superior vena cava. Dilator and J-wire were removed. Catheter placed with Peel-Away sheath. Peel-Away sheath removed. Platysma was approximated with 4-0 Monocryl, skin with subdermal 4-0 Monocryl, and [place] glue applied. On the left side Seldinger technique used to place a triple-lumen catheter. It was secured with 3-0 nylon sutures. Sterile dressing applied. All ports were aspirated of blood and flushed with saline solution. Hemodialysis catheter flushed with heparinized saline solution, 1000 units of heparin per mL, indicating volume of the port. Final fluoroscopic images revealed good line placement. Attention was then turned to the right upper extremity where the proximal volar forearm longitudinal incision made below the antecubital fossa. Antecubital vein was nonexistent. Subcutaneous tissue was approximated with 3-0 Monocryl, skin with subdermal 4-0 Monocryl, and [place] glue applied. Incision was made over the distal upper arm just above the antecubital fossa longitudinally dissecting the brachial artery, which was heavily calcified, but palpable pulse noted. Incision was made in the right axilla. Axillary vein dissected free. A Deirdre-Wick tunneler was used to tunnel PTFE graft, 4T06 taper graft, placed a 4 mm end over the brachial artery above the antecubital fossa. The patient was given 6000 units of heparin intravenously. After adequate circulation time, the brachial artery was clamped proximally and distally. Arteriotomy made sharply, elongated with the Raphael scissors. Endarterectomy was performed. Two coronary dilators were passed throughout the length in the brachial artery and without obstruction, there was excellent arterial inflow. An end graft to side of brachial artery anastomosis was created with continuous suture of 6-0 Prolene. Continuous 6-0 Prolene used. Hemostasis noted with local pressure. Attention was turned to the axilla. Axillary vein was controlled proximally and distally with silastic vessel loops and was of good caliber. Posterior branch was controlled with clips and vascular clamp. Venotomy made. Stay suture of 6-0 Prolene placed and a 3 cm anastomosis made between the tapered end of the 6 mm end of the graft and the vein side with continuous suture of 6-0 Prolene, completing anastomosis, released an arterial inflow and then venous outflow noting good Doppler signal in the graft outflow vein. Axillary vein is of good caliber and adequate length for revision if necessary. Good hemostasis was noted. The patient was given 25 mg of protamine intravenously. All incisions were closed by approximating subcutaneous tissue with 3-0 Monocryl, skin with subdermal 4-0 Monocryl, and [place] glue applied. Job ID: [id number]
--- NOTE | 2019-12-17 06:29 | PDOC.FM ---
- Subjective Subjective: Mr. Calderon cannot move his right arm this morning following his surgery yesterday. He also complains of neck discomfort where they put a line in. Patient required oxygen following procedure for a short time due to anesthesia. - Objective Vital Signs & Weight: Vital Signs (12 hours) Temp Pulse Resp BP Pulse Ox 12/17/19 04:00 97.2 F L 86 20 131/79 100 12/17/19 00:00 85 16 116/75 12/16/19 20:30 96.7 F L 86 18 133/78 98 12/16/19 20:00 98 Weight Weight 58.74 kg I&O: 12/15/19 12/16/19 12/17/19 06:59 06:59 06:59 Intake Total 1200 1200 720 Output Total 525 2680 400 Balance 675 -1480 320 Result Diagrams: 12/17/19 06:45 12/17/19 06:45 EKG Reviewed by me: Yes (tele: SR with ST depression) Phys Exam - Physical Examination tired HEENT: moist MMs, sclera anicteric Neck: no nodes, supple Respiratory: no wheezing, no rales, no rhonchi, clear to auscultation bilateral Cardiovascular: RRR Gastrointestinal: soft, non-tender hernia Musculoskeletal: no edema, pulses present cannot move R arm following fistula placement Psychiatric: normal affect, A&O x 3 Dx/Plan (1) COPD exacerbation Code(s): J44.1 - CHRONIC OBSTRUCTIVE PULMONARY DISEASE W (ACUTE) EXACERBATION Status: Acute (2) Acute exacerbation of CHF (congestive heart failure) Code(s): I50.9 - HEART FAILURE, UNSPECIFIED Status: Acute (3) Acute on chronic renal failure Code(s): N17.9 - ACUTE KIDNEY FAILURE, UNSPECIFIED; N18.9 - CHRONIC KIDNEY DISEASE, UNSPECIFIED Status: Acute (4) Elevated troponin Code(s): R74.8 - ABNORMAL LEVELS OF OTHER SERUM ENZYMES Status: Acute (5) Pulmonary edema with congestive heart failure Code(s): I50.1 - LEFT VENTRICULAR FAILURE, UNSPECIFIED Status: Acute (6) CKD (chronic kidney disease) stage 3, GFR 30-59 ml/min Code(s): N18.3 - CHRONIC KIDNEY DISEASE, STAGE 3 (MODERATE) * DO NOT USE * Status: Chronic (7) DM2 (diabetes mellitus, type 2) Status: Chronic (8) HLD (hyperlipidemia) Code(s): E78.5 - HYPERLIPIDEMIA, UNSPECIFIED Status: Chronic Qualifiers: (9) HTN (hypertension) Code(s): I10 - ESSENTIAL (PRIMARY) HYPERTENSION Status: Chronic (10) Tobacco abuse Code(s): Z72.0 - TOBACCO USE Status: Chronic - Plan Plan: 54 yo M with history of COPD, CHF, HTN, DMII presenting for worsening productive cough and SOB of 4 day duration WILLIS on CKD -Cr 3.54, baseline ~2.5 -Encourage PO fluids -Consult: Roger (Nephro) - dialysis MWF, setting up outpatient dialysis pending insurance approval -Consult: uX (gen surg) - placed temporary fem vein dialysis catheter 12/10. R IJ tunneled dialysis catheter, L IJ central line, PTFE graft placed 12/15 Acute on chronic COPD exacerbation Improved air movement. -Make duonebs PRN instead of scheduled -completed 5 days of prednisone -Procal wnl, mild exacerbation and azithromycin not indicated at this time Acute on chronic HFpEF exacerbation -BNP 1164, CXR: worsening congestion and b/l pulmonary edema, April ECHO: 50- 55% EF, IV lasix in ED -strict I/O, daily weights -Consult: Roger (Nephro) - Zaroxolyn, dialysis MWF -Consult: Roque (Sumeet) - stable and ready for discharge from their standpoint -ECHO: EF 50-55%, mod MR Afib w/RVR vs. recurrent PACs -Consult: Radha Silverio) - stable and ready for discharge from their standpoint -restarted home diltiazem and amiodarone -HR 80-90s, 5 beats of Vtach -Continue to monitor on tele Elevated troponins -chronically elevated. History of bypass surgery, angioplasty, stent. Has seen Dr. Morales in the past. -0.154, 0.156, 0.161, 0.155 -no ST changes on EKG -ECHO: 50-55%, mod MR -Cards recs per Dr. Morales: stable HTN -140s/90s -Continue home medications -consider clonidine for better BP control HLD - aware, restart home medication DMII -A1c 5.6 -mild SSI -CC diet Nicotine dependance -Nicotine patch Marijuana use disorder -Reports daily use -Smoking cessation education PCP: CORRIE Torres) Code: FULL Diet: CC 1999 DVTPPx: heparin Dispo: Discharge pending fistula placement and outpatient dialysis set up.
[2019-12-17 07:00] LABS: #Eosinphils 0.2 thou/uL (0.0-0.7); #Lymphocytes 2.3 thou/uL (1.20-3.40); #Monocytes 1.3 thou/uL (0.11-0.59); #Neutrophils 9.3 thou/uL (1.40-6.50); %Basophils 0.1 % (0.0-1.0); %Eosinophils 1.7 % (0.0-10.0); %Lymphocytes 17.4 % (21.0-51.0); %Monocytes 9.9 % (0.0-10.0); %Neutrophils 70.9 % (42.0-75.0); Hemoglobin 13.2 g/dL (14.0-18.0); Mean Corpuscular HGB CONC 31.3 g/dL (32.0-36.0); Mean Corpuscular Hemoglobin 28.8 pg (27.0-31.0); Mean Platelet Volume 10.7 fL (7.4-10.4); Platelet Count 130 thou/uL (130-400); RBC Distribution Width 14.3 % (11.5-14.5); Red Blood Cell (RBC) Count 4.59 mill/uL (4.70-6.10); White Blood Cell (WBC) Count 13.2 thou/uL (4.8-10.8)
[2019-12-17 07:21] LABS: Anion Gap 11 mmol/L (10-20); BUN (Urea Nitrogen) 44 mg/dL (8.4-25.7); Calc. Creatinine Clearance 14 mL/min (70-130); Calcium 8.1 mg/dL (7.8-10.44); Carbon Dioxide 24 mmol/L (23-31); Chloride 99 mmol/L (98-107); Estimated GFR-MDRD 17; Glucose 90 mg/dL (80-115); Potassium 5.2 mmol/L (3.5-5.1); Sodium 129 mmol/L (136-145)
[2019-12-17] MEDS ORDERED: Heparin 10,000 UNITS/ 10 ML VIAL ONE (08:23)
--- NOTE | 2019-12-17 10:59 | PRG ---
DATE OF SERVICE: 12/17/2019 SUBJECTIVE: Patient was seen and examined at bedside and overnight events noted. Patient denies any shortness of breath or chest pain or palpitation. No history of nausea or vomiting or diarrhea or fever or chills or cramps. OBJECTIVE: GENERAL: This is a well-built male, in no apparent distress. VITAL SIGNS: Temperature 98.1. Heart rate 90. Respiratory rate 16. Blood pressure 137/75. HEENT: Atraumatic, normocephalic. Oral mucosa is moist. NECK: Supple. CARDIOVASCULAR: S1, S2 heard. Rate and rhythm regular. RESPIRATORY: Clear to auscultation. GASTROINTESTINAL: Abdomen is soft. MUSCULOSKELETAL: No tenderness. No edema. DERMATOLOGIC: No skin rash. NEUROLOGIC: Alert and awake and oriented x3. No focal neurologic deficits. Moving all the extremities. PSYCHIATRIC: Mood and affect normal. LABORATORY DATA: Potassium 5.2, BUN is 44, and creatinine is 4.3. ASSESSMENT AND PLAN: 1. End-stage renal disease. Continue dialysis as tolerated. 2. Edema, controlled. 3. History of hypertension. 4. Hyperkalemia. 5. Hypernatremia. Plan to continue dialysis as tolerated. Follow with Case Management for outpatient placement. Job ID: [id number]
[2019-12-17] MEDS: Amlodipine 5 MG TAB PO SCH (12:19)
[2019-12-17] MEDS: Metolazone 2.5 MG TAB PO SCH (12:19)
[2019-12-17] MEDS: Pregabalin 50 MG CAP PO SCH (12:19)
[2019-12-17] MEDS: Amiodarone 200 MG TAB PO SCH (12:20)
[2019-12-17] MEDS: Ferrous Sulfate 325 MG TAB PO SCH (12:20)
[2019-12-17] MEDS: guaiFENesin/DM ER PO SCH ×2 (12:21→20:57)
[2019-12-17] MEDS: Carvedilol 3.125 MG TAB PO SCH ×2 (12:21→20:56)
[2019-12-17] MEDS: Heparin 5,000 UNITS/ML VIAL SC SCH ×2 (12:22→20:56)
[2019-12-17] MEDS: Nicotine 14 MG PATCH TD SCH (13:52)
--- NOTE | 2019-12-17 14:00 | PRG ---
DATE OF SERVICE: 12/17/2019 I have examined the patient and discussed his care with Dr. Saucedo. I have read her note and agree with her assessment and plan. Mr. Calderon has had his dialysis port placed and is currently at hemodialysis. Job ID: [id number]
[2019-12-17] MEDS: READ PPD TEST SITE PO SCH (15:58)
[2019-12-17] MEDS: HumaLOG 300 UNITS/3 ML VIAL SC PRN (17:40)
--- NOTE | 2019-12-17 19:02 | PRG ---
DATE OF SERVICE: 12/17/2019 Mr. Calderon is doing well today. His wounds on his right arm look good. He has good thrill and bruit in his right arm graft. I would recommend continue using his right arm graft and right IJ hemodialysis catheter for dialysis access. We will see him in the office in 2 to 3 weeks for evaluation of his graft. I will see him as needed this hospitalization. Job ID: [id number]
[2019-12-17] MEDS: Amitriptyline HCl 25 MG TAB PO SCH (20:56)
[2019-12-17] MEDS: Rosuvastatin 10 MG TAB PO SCH (20:56)
--- NOTE | 2019-12-18 06:23 | PDOC.FM ---
- Subjective Subjective: Mr. Calderon complains of right arm pain. He has regained some strength but not fully since his fistula placement. He denies CP, SOB. - Objective Vital Signs & Weight: Vital Signs (12 hours) Temp Pulse Resp BP Pulse Ox 12/18/19 00:10 87 20 98/63 12/18/19 00:00 98.6 F 89 18 134/64 96 12/17/19 20:00 98.0 F 92 20 104/59 L 99 12/17/19 19:58 99 Weight Weight 57.5 kg I&O: 12/16/19 12/17/19 12/18/19 06:59 06:59 06:59 Intake Total 3090 655 5000 Output Total 2680 400 1725 Balance -1480 320 -645 Result Diagrams: 12/17/19 06:45 12/18/19 09:16 EKG Reviewed by me: Yes (tele: SR, STEPHAN, MAT) Phys Exam - Physical Examination Constitutional: NAD HEENT: moist MMs, sclera anicteric Neck: no nodes, full ROM Respiratory: no wheezing, no rales, no rhonchi, clear to auscultation bilateral Cardiovascular: RRR, no significant murmur Gastrointestinal: soft, non-tender hernia Musculoskeletal: no edema, pulses present Neurological: non-focal, moves all 4 limbs Psychiatric: normal affect, A&O x 3 Dx/Plan (1) COPD exacerbation Code(s): J44.1 - CHRONIC OBSTRUCTIVE PULMONARY DISEASE W (ACUTE) EXACERBATION Status: Acute (2) Acute exacerbation of CHF (congestive heart failure) Code(s): I50.9 - HEART FAILURE, UNSPECIFIED Status: Acute (3) Acute on chronic renal failure Code(s): N17.9 - ACUTE KIDNEY FAILURE, UNSPECIFIED; N18.9 - CHRONIC KIDNEY DISEASE, UNSPECIFIED Status: Acute (4) Elevated troponin Code(s): R74.8 - ABNORMAL LEVELS OF OTHER SERUM ENZYMES Status: Acute (5) Pulmonary edema with congestive heart failure Code(s): I50.1 - LEFT VENTRICULAR FAILURE, UNSPECIFIED Status: Acute (6) CKD (chronic kidney disease) stage 3, GFR 30-59 ml/min Code(s): N18.3 - CHRONIC KIDNEY DISEASE, STAGE 3 (MODERATE) * DO NOT USE * Status: Chronic (7) DM2 (diabetes mellitus, type 2) Status: Chronic (8) HLD (hyperlipidemia) Code(s): E78.5 - HYPERLIPIDEMIA, UNSPECIFIED Status: Chronic Qualifiers: (9) HTN (hypertension) Code(s): I10 - ESSENTIAL (PRIMARY) HYPERTENSION Status: Chronic (10) Tobacco abuse Code(s): Z72.0 - TOBACCO USE Status: Chronic - Plan Plan: 54 yo M with history of COPD, CHF, HTN, DMII presenting for worsening productive cough and SOB of 4 day duration WILLIS on CKD -Cr 3.54, baseline ~2.5 -Encourage PO fluids -Consult: Roger (Nephro) - dialysis MWF, setting up outpatient dialysis pending insurance approval -Consult: Xu (gen surg) - placed temporary fem vein dialysis catheter 12/10. R IJ tunneled dialysis catheter, L IJ central line, PTFE graft placed 12/15 Acute on chronic COPD exacerbation Improved air movement. -Make duonebs PRN instead of scheduled -completed 5 days of prednisone -Procal wnl, mild exacerbation and azithromycin not indicated at this time Acute on chronic HFpEF exacerbation -BNP 1164, CXR: worsening congestion and b/l pulmonary edema, April ECHO: 50- 55% EF, IV lasix in ED -strict I/O, daily weights -Consult: Roger (Nephro) - Zaroxolyn, dialysis MWF -Consult: Roque (Sumeet) - stable and ready for discharge from their standpoint -ECHO: EF 50-55%, mod MR Afib w/RVR vs. recurrent PACs -Consult: Radha Silverio) - stable and ready for discharge from their standpoint -restarted home diltiazem and amiodarone -HR 80-90s, 5 beats of Vtach -Continue to monitor on tele Elevated troponins -chronically elevated. History of bypass surgery, angioplasty, stent. Has seen Dr. Morales in the past. -0.154, 0.156, 0.161, 0.155 -no ST changes on EKG -ECHO: 50-55%, mod MR -Cards recs per Dr. Morales: stable HTN -140s/90s -Continue home medications -consider clonidine for better BP control HLD - aware, restart home medication DMII -A1c 5.6 -mild SSI -CC diet Nicotine dependance -Nicotine patch Marijuana use disorder -Reports daily use -Smoking cessation education PCP: CORRIE Torres) Code: FULL Diet: CC 1999 DVTPPx: heparin Dispo: Discharge pending insurance approval for outpatient dialysis.
[2019-12-18] MEDS: Pregabalin 50 MG CAP PO SCH (09:07)
[2019-12-18] MEDS: Ferrous Sulfate 325 MG TAB PO SCH (09:08)
[2019-12-18] MEDS: guaiFENesin/DM ER PO SCH ×2 (09:09→20:57)
[2019-12-18] MEDS: Metolazone 2.5 MG TAB PO SCH (09:09)
[2019-12-18] MEDS: Amiodarone 200 MG TAB PO SCH (09:09)
[2019-12-18] MEDS: Heparin 5,000 UNITS/ML VIAL SC SCH ×2 (09:09→20:55)
[2019-12-18] MEDS: Amlodipine 5 MG TAB PO SCH (09:18)
[2019-12-18] MEDS: Carvedilol 3.125 MG TAB PO SCH ×2 (09:18→20:56)
[2019-12-18 09:50] LABS: Anion Gap 11 mmol/L (10-20); BUN (Urea Nitrogen) 41 mg/dL (8.4-25.7); Calc. Creatinine Clearance 15 mL/min (70-130); Calcium 7.7 mg/dL (7.8-10.44); Carbon Dioxide 27 mmol/L (23-31); Chloride 97 mmol/L (98-107); Estimated GFR-MDRD 17; Glucose 244 mg/dL (80-115); Potassium 3.7 mmol/L (3.5-5.1); Sodium 131 mmol/L (136-145)
--- NOTE | 2019-12-18 12:02 | PRG ---
DATE OF SERVICE: 12/18/2019 SUBJECTIVE: Patient was seen and examined at bedside and overnight events noted. Patient denies any shortness of breath or chest pain or palpitation. No history of nausea or vomiting or diarrhea or fever or chills or cramps. OBJECTIVE: GENERAL: This is a well-built male, in no apparent distress. VITAL SIGNS: blood pressure 137/74. HEENT: Atraumatic, normocephalic. Oral mucosa is moist. NECK: Supple. CARDIOVASCULAR: S1, S2 heard. Rate and rhythm regular. RESPIRATORY: Clear to auscultation. GASTROINTESTINAL: Abdomen is soft. MUSCULOSKELETAL: No tenderness. No edema. DERMATOLOGIC: No skin rash. NEUROLOGIC: Alert and awake and oriented x3. No focal neurologic deficits. Moving all the extremities. PSYCHIATRIC: Mood and affect normal. LABORATORY DATA: Potassium 3.7, BUN is 41, and creatinine is 4.2. ASSESSMENT AND PLAN: 1. End-stage renal disease. Continue dialysis as tolerated. 2. Edema. I will remove fluid. 3. Hypertension. 4. Hyperkalemia. 5. Hyponatremia. Labs are better. We will continue on dialysis as tolerated. Job ID: [id number]
[2019-12-18] MEDS: HumaLOG 300 UNITS/3 ML VIAL SC PRN ×2 (12:12→20:56)
[2019-12-18] MEDS: Nicotine 14 MG PATCH TD SCH (12:12)
--- NOTE | 2019-12-18 14:30 | PRG ---
DATE OF SERVICE: Mr. Calderon is resting quietly in bed. He has had his dialysis access placed by Dr. Mcnair. He will likely be discharged today as he is not due for dialysis until tomorrow. Job ID: [id number]
[2019-12-18] MEDS ORDERED: CEFAZOLIN 2 GM in Premix Bag 1 BAG IVPB SCH (18:45)
--- NOTE | 2019-12-18 19:07 | PRG ---
DATE OF SERVICE: 12/18/2019 Status post right upper arm dialysis graft At the time of placement of his graft, arterial inflow in brachial artery above the antecubital fossa was heavily arteriosclerotic and enterotomy required. After the block wore off, the patient was complaining of right hand pain. He does have movement, although limited and his pediatric anesthesiologist is weak. He does complain of cold fingers. We cannot palpate a right radial pulse, but can hear with a doppler. Considering these changes and the pain in his hand, we will obtain an arteriogram in his right arm. I talked to Dr. Riley Cardenas, who will perform that in the morning. We will hold dialysis until after this assessment. He is tentatively scheduled to the operating room for a DRIL procedure (distal revascularization and interval ligation) procedure. He has had bilateral AKAs and we will probably have to use prosthetic PTFE graft if this is indicated. He can dialyze afterward the procedure on Sunday. His hemoglobin is stable. We will hold discharge for now and plan evaluation in morning. Job ID: [id number]
[2019-12-18] MEDS: Amitriptyline HCl 25 MG TAB PO SCH (20:56)
[2019-12-18] MEDS: Rosuvastatin 10 MG TAB PO SCH (20:56)
[2019-12-19] MEDS ORDERED: traMADol HCl 50 MG TAB PO SCH (01:30)
[2019-12-19] MEDS: Acetaminophen 500 MG TAB PO SCH ×4 (05:34→23:07)
--- NOTE | 2019-12-19 06:41 | PDOC.FM ---
- Subjective Subjective: Mr. Calderon complains of pain in his right arm. He says he is able to move it better than previous days but it is very painful. - Objective Vital Signs & Weight: Vital Signs (12 hours) Temp Pulse Resp BP Pulse Ox 12/19/19 04:00 98.5 F 81 18 128/76 98 12/18/19 23:28 128/71 12/18/19 19:35 98.3 F 101 H 16 137/62 97 Weight Admit Weight 61.235 kg Weight 57.5 kg I&O: 12/17/19 12/18/19 12/19/19 06:59 06:59 06:59 Intake Total 720 1080 240 Output Total 400 1725 325 Balance 067 -645 -85 Result Diagrams: 12/17/19 06:45 12/18/19 09:16 EKG Reviewed by me: Yes (tele: 6 beats Vtach) Phys Exam - Physical Examination resting comfortably, complaining of pain in his right arm HEENT: moist MMs, sclera anicteric Neck: full ROM Respiratory: no wheezing, no rales, no rhonchi, clear to auscultation bilateral Cardiovascular: RRR, no significant murmur Gastrointestinal: soft, non-tender hernia Musculoskeletal: no edema, pulses present decreased strength in RUE, fingertips cold, no palpable radial pulse Neurological: non-focal, moves all 4 limbs Psychiatric: normal affect, A&O x 3 Dx/Plan (1) COPD exacerbation Code(s): J44.1 - CHRONIC OBSTRUCTIVE PULMONARY DISEASE W (ACUTE) EXACERBATION Status: Acute (2) Acute exacerbation of CHF (congestive heart failure) Code(s): I50.9 - HEART FAILURE, UNSPECIFIED Status: Acute (3) Acute on chronic renal failure Code(s): N17.9 - ACUTE KIDNEY FAILURE, UNSPECIFIED; N18.9 - CHRONIC KIDNEY DISEASE, UNSPECIFIED Status: Acute (4) Elevated troponin Code(s): R74.8 - ABNORMAL LEVELS OF OTHER SERUM ENZYMES Status: Acute (5) Pulmonary edema with congestive heart failure Code(s): I50.1 - LEFT VENTRICULAR FAILURE, UNSPECIFIED Status: Acute (6) CKD (chronic kidney disease) stage 3, GFR 30-59 ml/min Code(s): N18.3 - CHRONIC KIDNEY DISEASE, STAGE 3 (MODERATE) * DO NOT USE * Status: Chronic (7) DM2 (diabetes mellitus, type 2) Status: Chronic (8) HLD (hyperlipidemia) Code(s): E78.5 - HYPERLIPIDEMIA, UNSPECIFIED Status: Chronic Qualifiers: (9) HTN (hypertension) Code(s): I10 - ESSENTIAL (PRIMARY) HYPERTENSION Status: Chronic (10) Tobacco abuse Code(s): Z72.0 - TOBACCO USE Status: Chronic - Plan Plan: 54 yo M with history of COPD, CHF, HTN, DMII presenting for worsening productive cough and SOB of 4 day duration WILLIS on CKD -Cr 3.54, baseline ~2.5 -Encourage PO fluids -Consult: Roger (Nephro) - dialysis MWF, setting up outpatient dialysis pending insurance approval -Consult: Xu (gen surg) - placed temporary fem vein dialysis catheter 12/10. R IJ tunneled dialysis catheter, L IJ central line, PTFE graft placed 12/15. -Dr. Mcnair assessed patient's right arm yesterday and was unable to find pulses on doppler. Consulted Dr. Cardenas for angiograms this AM (12/18). May consider distal revascularization and interval ligation if necessary. Will hold dialysis today and resume tomorrow. Acute on chronic COPD exacerbation Improved air movement. -Make duonebs PRN instead of scheduled -completed 5 days of prednisone -Procal wnl, mild exacerbation and azithromycin not indicated at this time Acute on chronic HFpEF exacerbation -BNP 1164, CXR: worsening congestion and b/l pulmonary edema, April ECHO: 50- 55% EF, IV lasix in ED -strict I/O, daily weights -Consult: Roger (Nephro) - Zaroxolyn, dialysis MWF -Consult: Roque (Sumeet) - stable and ready for discharge from their standpoint -ECHO: EF 50-55%, mod MR Afib w/RVR vs. recurrent PACs -Consult: Radha (Sumeet) - stable and ready for discharge from their standpoint -restarted home diltiazem and amiodarone -HR 80-90s, 5 beats of Vtach -Continue to monitor on tele Elevated troponins -chronically elevated. History of bypass surgery, angioplasty, stent. Has seen Dr. Morales in the past. -0.154, 0.156, 0.161, 0.155 -no ST changes on EKG -ECHO: 50-55%, mod MR -Cards recs per Dr. Morales: stable HTN -Has had a few pressures 110-120s/70s -Will hold amlodipine as needed -Continue discontinuing upon discharge HLD - aware, restart home medication DMII -A1c 5.6 -mild SSI -CC diet Nicotine dependance -Nicotine patch Marijuana use disorder -Reports daily use -Smoking cessation education PCP: CORRIE Torres) Code: FULL Diet: CC 1999 DVTPPx: heparin Dispo: Will likely be admitted through the weekend. Angiograms and possible DRIL procedure this weekend. Outpatient dialysis still pending insurance approval.
--- NOTE | 2019-12-19 07:05 | CON ---
DATE OF CONSULTATION: 12/19/2019 HISTORY OF PRESENT ILLNESS: Mr. Calderon is an unfortunate 64-year-old gentleman with longstanding peripheral vascular disease, end-stage renal disease, coronary artery disease, hypertension, dyslipidemia, who is in the hospital with ischemic right hand. He has a recent history of a dialysis graft being placed in his upper right arm. The hand post dialysis graft has become ischemic. He has pain and very dry skin. He has good motor function, but has continuous pain in the right hand. I have been asked to see him to perform angiograms. PAST MEDICAL HISTORY: Above plus COPD, hypertension, diabetes mellitus, congestive heart failure. PAST SURGICAL HISTORY: 1. Coronary artery bypass grafting in the remote past. 2. Right femoral popliteal in the remote past. 3. Bilateral iliac stents. 4. Bilateral above-knee amputations. 5. Dialysis access procedures. ALLERGIES: NONE. CURRENT MEDICATIONS: Noted. SOCIAL HISTORY: He smokes a half pack a day and uses marijuana daily. PHYSICAL EXAMINATION: GENERAL: He is a chronically ill-appearing gentleman. VITAL SIGNS: Temperature is 98.5, pulse is 80 and regular, and blood pressure is 128/76. LUNGS: Clear bilaterally. HEART: Rhythm is regular. He has palpable femoral pulses bilaterally. His right arm is cool at the level of the hand. He has a recent incision at the elbow. ASSESSMENT/PLAN: For angiograms, I have discussed that this is a diagnostic procedure with him and he understands. We will get inflow and outflow pictures with compression of the graft. Job ID: [id number]
[2019-12-19] MEDS: Metolazone 2.5 MG TAB PO SCH (08:56)
[2019-12-19] MEDS: Carvedilol 3.125 MG TAB PO SCH ×2 (08:56→21:10)
[2019-12-19] MEDS: Ferrous Sulfate 325 MG TAB PO SCH (08:57)
[2019-12-19] MEDS: Pregabalin 50 MG CAP PO SCH (08:57)
[2019-12-19] MEDS: Amlodipine 5 MG TAB PO SCH (08:57)
[2019-12-19] MEDS: Amiodarone 200 MG TAB PO SCH (08:57)
[2019-12-19] MEDS: Heparin 5,000 UNITS/ML VIAL SC SCH ×2 (08:58→21:10)
[2019-12-19] MEDS: guaiFENesin/DM ER PO SCH ×2 (08:58→21:10)
[2019-12-19] MEDS ORDERED: Iopamidol 370 76% 50 ML VIAL FS ONE (08:59)
[2019-12-19] MEDS ORDERED: PHENYLEPHRINE-NS 100 MCG/ML 10 ML SYRINGE ONE (11:35)
[2019-12-19] MEDS ORDERED: EPHEDRINE 25 MG/5 ML SYRINGE ONE (11:35)
[2019-12-19] MEDS ORDERED: Bupivacaine HCl 0.5%/Epinephrine 1:200,000/PF 30 ml Vial ONE ×2 (11:35→13:06)
[2019-12-19] MEDS ORDERED: Ondansetron PF 4 MG/2 ML Vial ONE (11:35)
--- NOTE | 2019-12-19 11:49 | PRG ---
DATE OF SERVICE: 12/19/2019 We had examined Mr. Calderon yesterday and noticed that his right hand is extremely cool to touch and had a nonpalpable right radial pulse. We asked Dr. Medina to re-examine the patient, which he did. He agreed and consulted Dr. Cardenas for arteriogram. Dr. Cardenas has seen the patient and an arteriogram was scheduled for today to diagnose and treat what appears to be an ischemic hand. Job ID: [id number]
[2019-12-19] MEDS: Nicotine 14 MG PATCH TD SCH (12:02)
[2019-12-19] MEDS ORDERED: Fentanyl 100 MCG/2 ML VIAL ONE ×2 (12:49→13:08)
[2019-12-19] MEDS ORDERED: Midazolam HCl 2 mg/2 ml Vial ONE (12:49)
[2019-12-19] MEDS ORDERED: Lidocaine 2% PF 5 ML VIAL ONE (13:06)
[2019-12-19] MEDS ORDERED: Ioversol 68 % 50 ML VIAL ONE (13:06)
[2019-12-19] MEDS ORDERED: Heparin 5,000 UNITS/ML VIAL ONE (13:06)
[2019-12-19] MEDS ORDERED: Protamine Sulfate 50 MG/5 ML VIAL ONE (13:06)
[2019-12-19] MEDS ORDERED: traMADol HCl 50 MG TAB PO PRN (13:15)
[2019-12-19] MEDS ORDERED: Propofol 1,000 MG/100 ML VIAL IV ONE (13:17)
--- NOTE | 2019-12-19 15:24 | PRG ---
DATE OF SERVICE: 12/19/2019 SUBJECTIVE: Patient was seen and examined at bedside and overnight events noted. Patient denies any shortness of breath or chest pain or palpitation. No history of nausea or vomiting or diarrhea or fever or chills or cramps. OBJECTIVE: General: This is a well-built male, in no apparent distress. Vital Signs: Temperature 97.6. Heart Rate 62. Respiratory rate . Blood pressure 102/58. HEENT: Atraumatic, normocephalic. Oral mucosa is moist. Neck: Supple. Cardiovascular: S1, S2 heard. Rate and rhythm regular. Respiratory: Clear to auscultation. Gastrointestinal: Abdomen is soft. Musculoskeletal: No tenderness. No edema. Dermatologic: No skin rash. Neurologic: Alert and awake and oriented x3. No focal neurologic deficits. Moving all the extremities. Psychiatric: Mood and affect normal. LABORATORY DATA: Not done today. ASSESSMENT AND PLAN: 1. End-stage renal disease. Continue dialysis as tolerated. 2. Edema. 3. Hypertension. 4. Anemia of chronic disease. 5. Continue dialysis as tolerated. Job ID: [id number]
--- NOTE | 2019-12-19 16:43 | PDOC.BPN ---
- Brief Progress Note Transition of Care Note: 64 yo M with PMH of b/l AKAs, COPD, CHF, HTN, DMII, HLD presenting for SOB and productive cough of 4 day duration. Cough is productive of clear mucous and he describes trouble catching his breath. He denied any fever, chills, palpitations,headache, congestion, orthopnea, or CP. Mr. Calderon has been out of all his medication for 1 month. He states this feels like "the last time he was full of fluid." Patient was admitted and treated for a CHF exacerbation and COPD exacerbation. He was diuresed with IV Lasix and treated with duonebs and prednisone and his breathing improved. Dr. Morales with cardiology was consulted as he was very familiar with patient and recommended continuing patients home medications. On admission, patient had a BUN/Cr of 29/4.38 and had not previously been on dialysis. Nephrology was consulted and recommended initiation of dialysis which patient first refused but later agreed to. A temporary femoral vein dialysis catheter was placed on 12/[address] Mcnair with general surgery and patient initiated MWF HD. On 12/15 a R IJ tunneled dialysis cathereter, L IJ central line, and PTFE graft were placed by Dr. Mcnair. On 12/17 patient was experiencing significant weakness and pain in his right upper extremity. He was examined by Dr. Mcnair who suspected occlusion due to patients lack of pulses and cold hand and fingertips. Patient was scheduled for angiograms with Dr. Cardenas (CV surg) on 12/18 and a possible DRIL procedure. Insurance approval for outpatient dialysis is pending, per case management. Patients discharge is pending treatment and resolution of RUE occlusion and outpatient dialysis approval.
--- NOTE | 2019-12-19 18:49 | OP ---
DATE OF PROCEDURE: 12/18/2019 PREOPERATIVE DIAGNOSES: End-stage renal disease, right upper arm hemodialysis PTFE taper 4T07 graft, brachial artery above the antecubital fossa, axillary vein with ischemic right hand secondary to arterial steal. POSTOPERATIVE DIAGNOSES: End-stage renal disease, right upper arm hemodialysis PTFE taper 4T07 graft, brachial artery above the antecubital fossa, axillary vein with ischemic right hand secondary to arterial steal. Note, the patient had arteriogram this morning by Dr. Cardenas. The patient has had radial and ulnar runoff to the hand, but complete arterial steal from his tapered dialysis graft upper arm necessitating this procedure to restore, prioritize circulation to his hand. PROCEDURE PERFORMED: DRIL procedure right arm using PTFE 6 mm graft as he has had prior bilateral [id number] amputations from PAD. ANESTHESIA: Regional and TIVA. DESCRIPTION OF PROCEDURE: The patient was taken to the operating room, where under regional anesthesia and intravenous sedation, right upper extremity was prepared with ChloraPrep and draped in routine fashion. Incision was made in the mid upper arm and carried down through the skin and subcutaneous tissue medially to the deep fascia, identifying the brachial artery, dissected it free, controlled with silastic vessel loop. Below the arterial graft anastomosis just above the antecubital fossa, incision was made distal to this, carried down through skin and subcutaneous tissue toward the antecubital fossa on the proximal forearm and identifying the brachial artery, dissected it free. #6 PTFE graft was tunneled between the two incisions. The patient given 6000 units of heparin intravenously and graft artery anastomosis proximally than distally created by gaining control with vascular clamps, making arteriotomy, making a 2.5 cm anastomosis, tailoring the graft appropriately. Continuous suture of 6-0 Prolene used for the anastomosis. Once the proximal anastomosis was complete, the distal anastomosis completed with interval ligation of the brachial artery with a 2-0 silk tie. Just distal to the graft, brachial artery anastomosis ligating the brachial artery and then performed a more distal anastomosis distal to this. Once this was completed, anastomosis was completed with 6-0 Prolene. Vascular clamps were released and good hemostasis noted. The patient given protamine by Anesthesia. Good hemostasis noted. The patient tolerated the procedure well. Subcutaneous tissue was approximated with 3-0 Monocryl, skin with subdermal 4-0 Monocryl and [place] glue applied. Job ID: [id number]
[2019-12-19] MEDS: Rosuvastatin 10 MG TAB PO SCH (21:09)
[2019-12-19] MEDS: Amitriptyline HCl 25 MG TAB PO SCH (21:10)
[2019-12-20] MEDS: Acetaminophen 500 MG TAB PO SCH ×3 (05:07→17:26)
--- NOTE | 2019-12-20 06:27 | PDOC.FM ---
- Subjective Subjective: Pt states he is not able to feel his right hand or lift his arm since his surgery last night. - Objective Vital Signs & Weight: Vital Signs (12 hours) Temp Pulse Resp BP Pulse Ox 12/20/19 04:00 98.7 F 79 18 101/61 96 12/19/19 23:05 98.8 F 80 18 104/61 100 Weight Admit Weight 61.235 kg Weight 56.9 kg I&O: 12/18/19 12/19/19 12/20/19 06:59 06:59 06:59 Intake Total 1080 420 240 Output Total 1725 525 0 Balance -645 -105 240 Result Diagrams: 12/17/19 06:45 12/20/19 08:58 Phys Exam - Physical Examination Constitutional: NAD HEENT: moist MMs, sclera anicteric Neck: supple, full ROM Respiratory: no wheezing, clear to auscultation bilateral Cardiovascular: RRR, no significant murmur Gastrointestinal: soft, non-tender, no distention Musculoskeletal: no edema Right hand: decreased motor, decreased fine touch, pain and proprioception Psychiatric: normal affect, A&O x 3 Skin: no rash, cap refill <2 seconds Dx/Plan - Plan Plan: 54 yo M with history of COPD, CHF, HTN, DMII presenting for worsening productive cough and SOB of 4 day duration WILLIS on CKD -today BUN/Cr 27/3.62 improving -Encourage PO fluids -Consult: Roegr (Nephro) - dialysis MWF, setting up outpatient dialysis pending insurance approval -Consult: Xu (gen surg) - placed temporary fem vein dialysis catheter 12/10. R IJ tunneled dialysis catheter, L IJ central line, PTFE graft placed 12/15. -Dr. Mcnair - Distal revascularization and interval ligation of right arm on 12/18 -this morning has decreased motor and sensation of right hand, likely due to anesthesia, continue to monitor -discharge pending outpatient dialysis plan from case mgmt Acute on chronic COPD exacerbation -Improved air movement. -duonebs prn -completed 5 days of prednisone -Procal wnl, mild exacerbation and azithromycin not indicated at this time Acute on chronic HFpEF exacerbation -BNP 1164, CXR: worsening congestion and b/l pulmonary edema, April ECHO: 50- 55% EF, IV lasix in ED -strict I/O, daily weights -Consult: Roger (Nephro) - Zaroxolyn, dialysis MWF -Consult: Roque (Cards) - stable and ready for discharge from their standpoint -ECHO: EF 50-55%, mod MR Afib w/RVR vs. recurrent PACs -Consult: Radha (Cards) - stable and ready for discharge from their standpoint -restarted home diltiazem and amiodarone -HR 80-90s, 5 beats of Vtach -Continue to monitor on tele Elevated troponins -chronically elevated. History of bypass surgery, angioplasty, stent. Has seen Dr. Morales in the past. -0.154, 0.156, 0.161, 0.155 -no ST changes on EKG -ECHO: 50-55%, mod MR -Cards recs per Dr. Morales: stable HTN -Has had a few pressures 110-120s/70s -Will hold amlodipine as needed -Continue discontinuing upon discharge HLD - aware, restart home medication DMII -A1c 5.6 -mild SSI -CC diet Nicotine dependance -Nicotine patch Marijuana use disorder -Reports daily use -Smoking cessation education PCP: CORRIE Torres) Code: FULL Diet: CC 1999 DVTPPx: heparin Dispo: Outpatient dialysis still pending insurance approval. Addendum - Attending - Attending Attestation Date/Time: 12/20/19 3945 I personally evaluated the patient and discussed the management with Dr. Lindo I agree with the History, Examination, Assessment and Plan documented above with any addition or exceptions noted below. Patient with some transient numbness right hand post op he has full function and sensation at attending rounds.
[2019-12-20] MEDS: Ferrous Sulfate 325 MG TAB PO SCH (08:53)
[2019-12-20] MEDS: Carvedilol 3.125 MG TAB PO SCH ×2 (08:53→20:39)
[2019-12-20] MEDS: Metolazone 2.5 MG TAB PO SCH (08:53)
[2019-12-20] MEDS: Amiodarone 200 MG TAB PO SCH (08:53)
[2019-12-20] MEDS: guaiFENesin/DM ER PO SCH ×2 (08:54→20:39)
[2019-12-20] MEDS: Heparin 5,000 UNITS/ML VIAL SC SCH ×2 (08:54→20:39)
[2019-12-20] MEDS: Pregabalin 50 MG CAP PO SCH (09:02)
[2019-12-20 09:33] LABS: Anion Gap 13 mmol/L (10-20); BUN (Urea Nitrogen) 27 mg/dL (8.4-25.7); Calc. Creatinine Clearance 17 mL/min (70-130); Calcium 7.8 mg/dL (7.8-10.44); Carbon Dioxide 26 mmol/L (23-31); Chloride 98 mmol/L (98-107); Estimated GFR-MDRD 21; Glucose 180 mg/dL (80-115); Potassium 3.9 mmol/L (3.5-5.1); Sodium 133 mmol/L (136-145)
--- NOTE | 2019-12-20 10:37 | PRG ---
DATE OF SERVICE: 12/20/2019 SUBJECTIVE: Patient was seen and examined at bedside and overnight events noted. Patient denies any shortness of breath or chest pain or palpitation. No history of nausea or vomiting or diarrhea or fever or chills or cramps. OBJECTIVE: GENERAL: This is a well-built male, in no apparent distress. VITAL SIGNS: Temperature . Heart Rate 79. Respiratory rate 18. Blood pressure 101/61. HEENT: Atraumatic, normocephalic. Oral mucosa is moist. NECK: Supple. CARDIOVASCULAR: S1, S2 heard. Rate and rhythm regular. RESPIRATORY: Clear to auscultation. GASTROINTESTINAL: Abdomen is soft. MUSCULOSKELETAL: No tenderness. No edema. DERMATOLOGIC: No skin rash. NEUROLOGIC: Alert and awake and oriented x3. No focal neurologic deficits. Moving all the extremities. PSYCHIATRIC: Mood and affect normal. LABORATORY DATA: Potassium is 3.9, BUN is 27, and creatinine is 3.6. ASSESSMENT AND PLAN: 1. End-stage renal disease. Continue dialysis as tolerated. 2. Edema, remove fluid. 3. . 4. Anemia of chronic disease. Plan to continue dialysis as tolerated. Job ID: [id number]
[2019-12-20] MEDS: Nicotine 14 MG PATCH TD SCH (12:48)
--- NOTE | 2019-12-20 13:01 | EKG ---
Test Reason : Blood Pressure : / mmHG Vent. Rate : 116 BPM Atrial Rate : 116 BPM P-R Int : 000 ms QRS Dur : 080 ms QT Int : 352 ms P-R-T Axes : 000 018 102 degrees QTc Int : 489 ms Atrial fibrillation with rapid ventricular response T wave abnormality, consider lateral ischemia Abnormal ECG Confirmed by WILLARD AGUILERA, ALEX ([id number]), features editor IVAN SIMS ([id number]) on 12/20/2019 1:00:48 PM Referred By: Confirmed By:ALEX LAMAR MD
--- NOTE | 2019-12-20 15:50 | PRG ---
DATE OF SERVICE: 12/20/2019 SUBJECTIVE: Prudencio Calderon is doing well today. His surgical wounds on right arm look good. There is slight blood oozing from the proximal volar forearm incision. Orders given to wash this daily with surgical soap. Apply a sterile gauze dressing and Coban. He has strongly dopplerable radial pulse. He is able to move his hand better, although he still has some residual regional anesthesia. This should improve with time. He states he has already improved throughout the day. His pain is better relative to yesterday. ASSESSMENT AND PLAN: End-stage renal disease, status post right upper arm graft with arterial steal syndrome and status post DRIL procedure. Prosthetic graft used as saphenous vein, unavailable due to bilateral AKA status. Continue to monitor. Awaiting dialysis arrangements for discharge. Job ID: [id number]
[2019-12-20] MEDS: HumaLOG 300 UNITS/3 ML VIAL SC PRN (17:26)
[2019-12-20] MEDS ORDERED: HYDROcodone/Acetaminophen 5/325 mg Tablet PO SCH (17:30)
[2019-12-20] MEDS: Rosuvastatin 10 MG TAB PO SCH (20:39)
[2019-12-20] MEDS: Amitriptyline HCl 25 MG TAB PO SCH (20:39)
[2019-12-20] MEDS: traMADol HCl 50 MG TAB PO PRN (21:21)
[2019-12-21] MEDS: Acetaminophen 500 MG TAB PO SCH ×5 (01:28→23:17)
--- NOTE | 2019-12-21 06:17 | PDOC.FM ---
- Subjective Subjective: Pt sleeping at beginning of exam. When awakened, he complained of pain, rating it a 20 out of 10. - Objective Vital Signs & Weight: Vital Signs (12 hours) Temp Pulse Resp BP Pulse Ox 12/20/19 20:00 98.6 F 77 14 126/67 97 Weight Admit Weight 61.235 kg Weight 59.81 kg I&O: 12/19/19 12/20/19 12/21/19 06:59 06:59 06:59 Intake Total 129 817 7194 Output Total 525 0 300 Balance -105 240 740 Result Diagrams: 12/17/19 06:45 12/20/19 08:58 Phys Exam - Physical Examination Constitutional: NAD HEENT: moist MMs, sclera anicteric Neck: supple, full ROM Respiratory: no wheezing, clear to auscultation bilateral Cardiovascular: RRR, no significant murmur Gastrointestinal: soft, non-tender, no distention Musculoskeletal: no edema, pulses present Neurological: non-focal, moves all 4 limbs Psychiatric: normal affect, A&O x 3 Deviation from normal: wound on right UE, clean and dry, cathether right chest, left IJ central li Dx/Plan - Plan Plan: WILLIS on CKD -most recent BUN/Cr 27/3.62 improving -Encourage PO fluids -Consult: Roger (Nephro) - dialysis MWF, setting up outpatient dialysis pending insurance approval -Consult: Xu (gen surg) - placed temporary fem vein dialysis catheter 12/10. R IJ tunneled dialysis catheter, L IJ central line, PTFE graft placed 12/15. -Dr. Mcnair - Distal revascularization and interval ligation of right arm on 12/18. Stable for discharge -motor and sensation of right hand improved -pain: tylenol, tramadol prn, consider adding tizanidine, renally dose and avoid NSAIDs -discharge pending outpatient dialysis plan from case mgmt Acute on chronic COPD exacerbation -Improved air movement. -duonebs prn -completed 5 days of prednisone -Procal wnl, mild exacerbation and azithromycin not indicated at this time Acute on chronic HFpEF exacerbation -BNP 1164, CXR: worsening congestion and b/l pulmonary edema, April ECHO: 50- 55% EF, IV lasix in ED -strict I/O, daily weights -Consult: Roger (Nephro) - Zaroxolyn, dialysis MWF -Consult: Roque (Cards) - stable and ready for discharge from their standpoint -ECHO: EF 50-55%, mod MR Afib w/RVR vs. recurrent PACs -Consult: Radha (Cards) - stable and ready for discharge from their standpoint -restarted home diltiazem and amiodarone -HR 80-90s, 5 beats of Vtach -Continue to monitor on tele Elevated troponins -chronically elevated. History of bypass surgery, angioplasty, stent. Has seen Dr. Morales in the past. -0.154, 0.156, 0.161, 0.155 -no ST changes on EKG -ECHO: 50-55%, mod MR -Cards recs per Dr. Morales: stable HTN -Has had a few pressures 110-120s/70s -Will hold amlodipine as needed -Continue discontinuing upon discharge HLD - aware, restart home medication DMII -A1c 5.6 -mild SSI -CC diet Nicotine dependance -Nicotine patch Marijuana use disorder -Reports daily use -Smoking cessation education PCP: CORRIE Torres) Code: FULL Diet: CC 1999 DVTPPx: heparin Dispo: Stable for discharge. Outpatient dialysis still pending insurance approval. Addendum - Attending - Attending Attestation Date/Time: 12/21/19 8665 I personally evaluated the patient and discussed the management with Dr. Lindo I agree with the History, Examination, Assessment and Plan documented above with any addition or exceptions noted below. Patient continues to c/o of pain to RUE described as deep aching pain exam with thrill at graft site distal neurovascular status intact no s/s infection on exam. continue tramadol and lyrica discuss further consideration with General surgery.
[2019-12-21] MEDS: Carvedilol 3.125 MG TAB PO SCH ×2 (08:02→21:25)
[2019-12-21] MEDS: Pregabalin 50 MG CAP PO SCH (08:02)
[2019-12-21] MEDS: guaiFENesin/DM ER PO SCH ×2 (08:02→21:25)
[2019-12-21] MEDS: Ferrous Sulfate 325 MG TAB PO SCH (08:02)
[2019-12-21] MEDS: Amiodarone 200 MG TAB PO SCH (08:03)
[2019-12-21] MEDS: Metolazone 2.5 MG TAB PO SCH (08:03)
[2019-12-21] MEDS: Heparin 5,000 UNITS/ML VIAL SC SCH ×2 (08:03→21:25)
[2019-12-21] MEDS: Nicotine 14 MG PATCH TD SCH (11:42)
[2019-12-21] MEDS: HumaLOG 300 UNITS/3 ML VIAL SC PRN (12:10)
--- NOTE | 2019-12-21 13:59 | PRG ---
DATE OF SERVICE: 12/21/2019 SUBJECTIVE: Patient was seen and examined at bedside and overnight events noted. Patient denies any shortness of breath or chest pain or palpitation. No history of nausea or vomiting or diarrhea or fever or chills or cramps. OBJECTIVE: GENERAL: This is a well-built male, in no apparent distress. VITAL SIGNS: Temperature . Heart rate 83. Respiratory rate 16. Blood pressure 130/62. HEENT: Atraumatic, normocephalic. Oral mucosa is moist. NECK: Supple. CARDIOVASCULAR: S1, S2 heard. Rate and rhythm regular. RESPIRATORY: Clear to auscultation. GASTROINTESTINAL: Abdomen is soft. MUSCULOSKELETAL: No tenderness. No edema. DERMATOLOGIC: No skin rash. NEUROLOGIC: Alert and awake and oriented x3. No focal neurologic deficits. Moving all the extremities. PSYCHIATRIC: Mood and affect normal. LABORATORY DATA: Not done today. ASSESSMENT AND PLAN: 1. End-stage renal disease. Continue dialysis as tolerated. 2. Edema. We will remove fluid. 3. History of hypertension. 4. Anemia of chronic disease. Continue dialysis as tolerated. Job ID: [id number]
--- NOTE | 2019-12-21 16:45 | PRG ---
DATE OF SERVICE: 12/21/2019 SUBJECTIVE: Prudencio Calderon today complains of pain around his elbow. The surgical site looks good. He has good thrill and bruit in his right upper arm graft. He has excellent Doppler signals in his radial and ulnar pulse in the wrist. He has some limited range of motion of his hand. Doppler reveals the arterial graft to be patent. At this point, the patient is doing well. He can be discharged home whenever outpatient dialysis arrangements were made. I expect his hand to improve with time. He will follow up in my office in 2 to 3 weeks. Would wash the surgical wounds about the proximal forearm and elbow with surgical soap daily and apply antibiotic ointment, Telfa and a Coban. Exercise his hand as able. Job ID: [id number]
--- NOTE | 2019-12-21 18:30 | OP ---
DATE OF PROCEDURE: 12/19/2019 PREOPERATIVE DIAGNOSIS: Ischemic right hand. POSTOPERATIVE DIAGNOSIS: Steal from dialysis graft. PROCEDURES PERFORMED: 1. Ultrasound-guided left femoral artery access. 2. Arch aortogram. 3. Right innominate/subclavian/axillary/brachial angiograms. ANESTHESIA: 1% lidocaine for local. ESTIMATED BLOOD LOSS: Minimal. FLUORO TIME: 5.0 minutes. TOTAL CONTRAST: 20 mL. DESCRIPTION OF PROCEDURE: After consent was obtained, the patient was brought to the cork slabs sawyer and placed in supine position on cork slabs sawyer table. Appropriate central line and monitoring was placed. The groins were prepped and draped in the usual sterile fashion. Using ultrasound guidance, the left femoral artery was anesthetized and accessed with a micro puncture sheath. The sheath was exchanged over a J-wire for a 5-Pashto sheath. Angled Alstead catheter was passed into the aortic arch. Using a severe ALFORD projection, arch aortogram was performed, illuminating the arch and innominate artery origin. There was heavy calcification at the origin of the innominate artery, but it was widely patent. The innominate artery was accessed. Hand-injected arteriogram was performed and this allowed us to access the subclavian takeoff. Once into the subclavian artery, multiple other angiograms were performed to allow for continued guidewire and subsequent catheter access. The axillary and brachial arteries were injected, allowing for passage of the catheter down into the midbrachial artery. With the dialysis graft open, hand-injected arteriogram was performed. This showed a widely patent arterial anastomosis and flow into the venous system. Distal to the brachial graft anastomosis, there was minimal flow. The graft was then occluded and hand-injected arteriogram performed with tip of the catheter in the brachial artery. This showed excellent flow down into the radial and ulnar arteries. There was flow down into the hand with the graft occluded. Catheters and guidewires were removed. Sheath was removed and manual pressure held for hemostasis. The patient tolerated the procedure well and will be turned over to Dr. Mcnair for further therapy involving his dialysis graft. Job ID: [id number]
[2019-12-21] MEDS: Rosuvastatin 10 MG TAB PO SCH (21:24)
[2019-12-21] MEDS: Amitriptyline HCl 25 MG TAB PO SCH (21:25)
[2019-12-22] MEDS: Acetaminophen 500 MG TAB PO SCH ×4 (05:01→23:32)
--- NOTE | 2019-12-22 05:30 | PDOC.FM ---
- Subjective Subjective: Pt in dialysis bed. Complains of continued weakness of right hand, although improving. No N/V, diarrhea, fever - Objective Vital Signs & Weight: Vital Signs (12 hours) Temp Pulse Resp BP BP Pulse Ox 12/22/19 04:25 98.5 F 82 16 117/67 94 L 12/21/19 19:25 98 12/21/19 19:23 98.4 F 83 16 122/66 98 Weight Admit Weight 61.235 kg Weight 59.5 kg I&O: 12/20/19 12/21/19 12/22/19 06:59 06:59 06:59 Intake Total 240 1040 600 Output Total 0 300 250 Balance 240 740 350 Result Diagrams: 12/22/19 07:46 12/20/19 08:58 Phys Exam - Physical Examination Constitutional: NAD HEENT: moist MMs, sclera anicteric Neck: supple, full ROM Respiratory: no wheezing, clear to auscultation bilateral Cardiovascular: RRR, no significant murmur Gastrointestinal: soft, non-tender, no distention Musculoskeletal: no edema b/l AKA Neurological: non-focal, normal sensation Psychiatric: normal affect, A&O x 3 Deviation from normal: wound RUE, well-approximated, clean, dry Dx/Plan - Plan Plan: WILLIS on CKD -Consult: Roger (Nephro) - dialysis MWF, setting up outpatient dialysis pending insurance approval -Dr. Mcnair - Distal revascularization and interval ligation of right arm on 12/18. Stable for discharge -motor and sensation of right hand improved -pain: tylenol, tramadol prn, renally dose and avoid NSAIDs -discharge pending outpatient dialysis plan from case mgmt Acute on chronic COPD exacerbation -Improved air movement. -duonebs prn Acute on chronic HFpEF exacerbation -strict I/O, daily weights -Consult: Roger (Nephro) - Zaroxolyn, dialysis MWF -Consult: Roque (Cards) - stable and ready for discharge from their standpoint -ECHO: EF 50-55%, mod MR Afib w/RVR vs. recurrent PACs -restarted home diltiazem and amiodarone -HR 80-90s, 5 beats of Vtach -Continue to monitor on tele Elevated troponins -chronically elevated. History of bypass surgery, angioplasty, stent. Has seen Dr. Morales in the past. -no ST changes on EKG HTN -currently well controlled on medication -home med, amlodipine discontinued HLD - aware, restart home medication DMII -A1c 5.6 -mild SSI -CC diet Hep C -quant: [id number] -discuss treatment w/ patient Nicotine dependance -Nicotine patch Marijuana use disorder -Reports daily use -Smoking cessation education PCP: CORRIE Torres) Code: FULL Diet: CC 1999 DVTPPx: heparin Dispo: Stable for discharge. Outpatient dialysis still pending insurance approval.
[2019-12-22] MEDS: traMADol HCl 50 MG TAB PO PRN ×3 (05:35→20:46)
[2019-12-22 08:12] LABS: #Eosinphils 0.3 thou/uL (0.0-0.7); #Lymphocytes 2.2 thou/uL (1.20-3.40); #Neutrophils 6.3 thou/uL (1.40-6.50); %Basophils 0.3 % (0.0-1.0); %Eosinophils 3.2 % (0.0-10.0); %Lymphocytes 22.3 % (21.0-51.0); %Monocytes 10.2 % (0.0-10.0); Hemoglobin 11.5 g/dL (14.0-18.0); Mean Corpuscular HGB CONC 31.6 g/dL (32.0-36.0); Mean Corpuscular Hemoglobin 29.7 pg (27.0-31.0); Mean Corpuscular Volume 93.7 fL (78.0-98.0); Mean Platelet Volume 10.4 fL (7.4-10.4); Platelet Count 107 thou/uL (130-400); RBC Distribution Width 14.8 % (11.5-14.5); Red Blood Cell (RBC) Count 3.86 mill/uL (4.70-6.10); White Blood Cell (WBC) Count 9.9 thou/uL (4.8-10.8)
[2019-12-22] MEDS ORDERED: Heparin 10,000 UNITS/ 10 ML VIAL ONE (09:22)
--- NOTE | 2019-12-22 10:42 | PRG ---
DATE OF SERVICE: SUBJECTIVE: A 64-year-old gentleman being seen for end-stage renal disease. The patient denies any nausea, vomiting or chest pain. PHYSICAL EXAMINATION: General: The patient is awake and alert. Vital Signs: Afebrile, pulse 68, breathing at 16, blood pressure 113/61. HEENT: Head normocephalic and atraumatic. Eyes intact, no ulcers. Nose intact, no ulcers. Ears intact, no ulcers. Neck: Supple. No JVD. Chest: Symmetrical and clear. Cardiovascular: Shows S1 and S2, no rub, no murmur. Gastrointestinal: Abdomen is soft, bowel sounds positive. Extremities: Show no edema or ulcers. Skin: Shows no rash or petechiae. Musculoskeletal: Shows no joint swelling or stiffness. Genitourinary: Shows no Weinberg or CVA tenderness. Neurologic: Motor intact. Cranial nerves intact. ASSESSMENT: 1. Stage chronic kidney disease, stable. 2. Hypertensive. 3. Anemia, stable. 4. Medication based on GFR appropriate. 5. Discharge planning is in progress. Job ID: [id number]
[2019-12-22] MEDS: Heparin 5,000 UNITS/ML VIAL SC SCH ×2 (13:08→22:58)
[2019-12-22] MEDS: Metolazone 2.5 MG TAB PO SCH (13:08)
[2019-12-22] MEDS: Carvedilol 3.125 MG TAB PO SCH ×2 (13:08→20:45)
[2019-12-22] MEDS: Ferrous Sulfate 325 MG TAB PO SCH (13:08)
[2019-12-22] MEDS: guaiFENesin/DM ER PO SCH ×2 (13:09→20:46)
[2019-12-22] MEDS: Amiodarone 200 MG TAB PO SCH (13:09)
[2019-12-22] MEDS: Nicotine 14 MG PATCH TD SCH (14:59)
[2019-12-22] MEDS: Pregabalin 50 MG CAP PO SCH (15:08)
--- NOTE | 2019-12-22 17:36 | PRG ---
DATE OF SERVICE: 12/22/2019 SUBJECTIVE: Prudencio Calderon is complaining of paresthesias in his right hand. He has some weakness in his right hand. He is able to open and close a fist, although not completely. He has a good thrill and bruit in his right upper arm graft. He has excellent Doppler signals at the wrist, but I cannot palpate pulses probably through this skin thickness. He does have an excellent right dopplerable radial ulnar pulse. ASSESSMENT AND PLAN: Status post DRIL procedure right arm due to ischemic hand from dialysis access. It is hard to tell whether his revascularization graft is patent. Thus, I have asked Dr. Riley Cardenas to see him regarding arteriography to check this. We will await the studies. Job ID: [id number]
[2019-12-22] MEDS: Rosuvastatin 10 MG TAB PO SCH (20:45)
[2019-12-22] MEDS: Amitriptyline HCl 25 MG TAB PO SCH (20:46)
[2019-12-22] MEDS ORDERED: Morphine 2 MG/ML VIAL SLOW IVP PRN (23:00)
--- NOTE | 2019-12-23 05:48 | PDOC.FM ---
- Subjective Subjective: Pt states continued pain and decreased strength and sensation of right arm. Spoke with Dr. Cardenas and consented to angiography today. No fever, N/V, diarrhea. - Objective Vital Signs & Weight: Vital Signs (12 hours) Temp Pulse Resp BP BP Pulse Ox 12/22/19 23:42 85 18 127/70 12/22/19 20:00 97.6 F 84 18 108/66 96 Weight Admit Weight 61.235 kg Weight 59.5 kg I&O: 12/21/19 12/22/19 12/23/19 06:59 06:59 06:59 Intake Total 1040 600 480 Output Total 239 456 4820 Balance 740 350 -1620 Result Diagrams: 12/22/19 07:46 12/20/19 08:58 Phys Exam - Physical Examination Constitutional: NAD HEENT: moist MMs, sclera anicteric Neck: supple, full ROM Respiratory: no wheezing, clear to auscultation bilateral Cardiovascular: RRR, no significant murmur Gastrointestinal: soft, non-tender, no distention R lower arm cool to touch, upper arm tender to palpation with mild edema, distal pulse not able to be palpated Neurological: non-focal decreased sensation R hand Psychiatric: normal affect, A&O x 3 Skin: no rash, cap refill <2 seconds Dx/Plan - Plan Plan: WILLIS on CKD -Consult: Roger (Nephro) - dialysis MWF, yesterday approved for outpatient dialysis to start on -Dr. Mcnair - right DRIL on 12/18. -R hand decreased motor, sensation and cold to touch, Dr Cardenas plan on angiography today -pain: tylenol, tramadol prn, renally dose and avoid NSAIDs Thrombocytopenia -plt 107 yesterday, pending CBC today Acute on chronic COPD exacerbation -Improved air movement. -duonebs prn Acute on chronic HFpEF exacerbation -strict I/O, daily weights -Consult cards: stable for discharge Afib w/RVR vs. recurrent PACs -resolved, restarted home diltiazem and amiodarone -Continue to monitor on tele Elevated troponins -chronically elevated. -no ST changes on EKG HTN -currently well controlled on medication -home med, amlodipine discontinued HLD - aware, restart home medication DMII -A1c 5.6 -mild SSI -CC diet Hep C -quant: [id number] -discuss treatment w/ patient Nicotine dependance -Nicotine patch Marijuana use disorder -Reports daily use -Smoking cessation education PCP: CORRIE Torres) Code: FULL Diet: CC 1999 DVTPPx: heparin Dispo: Plan for angiography of R arm today, will await recs from Marcel Mcnair and Ronald. Outpatient dialysis has been approved.
[2019-12-23] MEDS: Acetaminophen 500 MG TAB PO SCH ×3 (06:07→18:30)
[2019-12-23 08:35] LABS: #Eosinphils 0.2 thou/uL (0.0-0.7); #Lymphocytes 1.6 thou/uL (1.20-3.40); #Monocytes 1.5 thou/uL (0.11-0.59); #Neutrophils 11.2 thou/uL (1.40-6.50); %Basophils 0.3 % (0.0-1.0); %Eosinophils 1.7 % (0.0-10.0); %Lymphocytes 11.1 % (21.0-51.0); %Monocytes 10.2 % (0.0-10.0); %Neutrophils 76.6 % (42.0-75.0); Hemoglobin 11.9 g/dL (14.0-18.0); Mean Corpuscular HGB CONC 32.9 g/dL (32.0-36.0); Mean Corpuscular Hemoglobin 30.5 pg (27.0-31.0); Mean Corpuscular Volume 92.8 fL (78.0-98.0); Platelet Count 109 thou/uL (130-400); RBC Distribution Width 14.8 % (11.5-14.5); Red Blood Cell (RBC) Count 3.89 mill/uL (4.70-6.10); White Blood Cell (WBC) Count 14.7 thou/uL (4.8-10.8)
--- NOTE | 2019-12-23 10:05 | PRG ---
DATE OF SERVICE: 12/23/2019 SUBJECTIVE: A 64-year-old gentleman, being seen for end-stage renal disease. The patient denies any nausea, vomiting, or chest pain. PHYSICAL EXAMINATION: General: The patient is awake and alert. Vital Signs: Afebrile, pulse 94, breathing at 16, blood pressure 141/69. HEENT: Head normocephalic and atraumatic. Eyes intact, no ulcers. Nose intact, no ulcers. Ears intact, no ulcers. Neck: Supple. No JVD. Chest: Symmetrical and clear. Cardiovascular: Shows S1 and S2, no rub, no murmur. Gastrointestinal: Abdomen is soft, bowel sounds positive. Extremities: Show no edema or ulcers. Skin: Shows no rash or petechiae. Musculoskeletal: Shows no joint swelling or stiffness. Genitourinary: Shows no Weinberg or CVA tenderness. Neurologic: Motor intact. Cranial nerves intact. LABORATORY DATA: Showed hemoglobin 11.9. ASSESSMENT AND PLAN: 1. Chronic kidney disease, stage 6. Plan dialysis per schedule. 2. Hypertension, stable. 3. Anemia, stable. 4. Medication based on GFR, appropriate. Job ID: [id number]
[2019-12-23] MEDS ORDERED: Iopamidol 370 76% 50 ML VIAL FS ONE (10:45)
[2019-12-23] MEDS ORDERED: Morphine 2 MG/ML VIAL ONE (12:44)
[2019-12-23] MEDS ORDERED: Labetalol HCl 100 MG/20 ML VIAL ONE (13:07)
[2019-12-23] MEDS: Heparin 5,000 UNITS/ML VIAL SC SCH (14:40)
--- NOTE | 2019-12-23 14:49 | PRG ---
DATE OF SERVICE: 12/23/2019 Prudencio Calderon is doing well today. The patient had an arteriogram, revealing innominate artery stenosis with a gradient his distal revascularization graft is open with slow flow to his hand. He has a good thrill and bruit in his dialysis graft. The patient has some surgical pain around incisional sites around the elbow area and some paresthesias in his hand. These are probably due to ischemic period of time from his arterial steal. This should improve with time. Gabapentin can be given for symptomatic relief for medical. At this point, the patient is ready for discharge from a surgical standpoint. I will need to see him in the office in 2 to 3 weeks. Job ID: [id number]
[2019-12-23] MEDS: guaiFENesin/DM ER PO SCH (15:02)
[2019-12-23] MEDS: Ferrous Sulfate 325 MG TAB PO SCH (15:02)
[2019-12-23] MEDS: Carvedilol 3.125 MG TAB PO SCH (15:02)
[2019-12-23] MEDS: Nicotine 14 MG PATCH TD SCH (15:03)
[2019-12-23] MEDS: Metolazone 2.5 MG TAB PO SCH (15:03)
[2019-12-23] MEDS: Amiodarone 200 MG TAB PO SCH (15:04)
[2019-12-23] MEDS: Pregabalin 50 MG CAP PO SCH (15:04)
[2019-12-23 15:38] VITALS: BP 120/57; TEMP 98.3
[2019-12-24] MEDS ORDERED: Gabapentin 300 MG CAP PO SCH (09:00)
--- NOTE | 2019-12-25 01:57 | DIS ---
DATE OF ADMISSION: 12/09/2019 DATE OF DISCHARGE: 12/23/2019 RESIDENT: Wendy Lindo MD, PGY-1 ADMITTING ATTENDING: Neftali Chapin MD DISCHARGE ATTENDING: Venkatesh Florentino MD CONSULTS: 1. Nephrology, Dr. Duran. 2. General Surgery, Dr. Mcnair. 3. Cardiovascular Surgery, Dr. Cardenas. 4. Cardiology, Dr. Bailey. 5. Case Management. 6. Cardiac Rehab. PROCEDURES: 1. Cardiac catheterization. 2. Echocardiogram. 3. Central line placement. 4. Hemodialysis catheter placement. 5. AV fistula placement. 6. Revascularization of AV fistula. 7. DRIL procedure, right upper arm. 8. Arteriogram to right upper extremity. PRIMARY DIAGNOSIS: Chronic obstructive pulmonary disease exacerbation. SECONDARY DIAGNOSES: 1. Heart failure exacerbation. 2. Atrial fibrillation with rapid ventricular response. 3. Elevated troponins. 4. Acute kidney injury on chronic kidney disease. 5. Hypertensive urgency. 6. Hyperlipidemia. 7. Type 2 diabetes. 8. Nicotine dependence. 9. Marijuana use disorder. 10. Thrombocytopenia. 11. Hepatitis C. DISCHARGE MEDICATIONS: 1. Amiodarone 200 mg daily. 2. Amitriptyline 25 mg at bedtime. 3. Symbicort 2 puffs b.i.d. 4. Carvedilol 3.125 b.i.d. 5. Diltiazem 30 mg q.6 hours. 6. Iron 325 mg daily. 7. Furosemide 40 mg daily. 8. Gabapentin 300 mg daily. 9. Mucinex q.12 hours as needed. 10. DuoNeb 4 times a day as needed. 11. Nicotine patch daily. 12. Lyrica 200 mg daily. 13. Rosuvastatin 20 mg p.o. at bedtime. DISCONTINUED MEDICATIONS: Amlodipine. HISTORY OF PRESENT ILLNESS: A 64-year-old male with history of bilateral AKAs, COPD, CHF, hypertension, diabetes type 2, hyperlipidemia, presents with shortness of breath and cough for 4 days. States he had been out of his medications for 1 month. States it felt like The patient admitted and treated for CHF exacerbation, COPD exacerbation, diuresed with IV Lasix, started on DuoNebs and prednisone. Breathing improved. Cardiology consulted and stated the patient to continue home medications. On admission, patient's BUN and creatinine 29 and 4.38. Not previously been on dialysis. Nephrology consulted. Recommended initiation of dialysis. A temporal femoral vein dialysis catheter placed on 12/[address] Mcnair and started hemodialysis Sunday, Sunday, and Sunday. On 12/15, a right IJ tunneled dialysis catheter, left IJ central line, and PTFE grafts were placed in right upper arm by Dr. Mcnair. On 12/17, the patient was experiencing significant weakness and pain in his right upper extremity and thought to have occlusion. Dr. Cardenas, CV Surgery, did angiogram on 12/[address] Mcnair performing DRIL procedure to revascularize. The patient was then deemed stable for discharge pending outpatient dialysis, insurance approval. On 12/21 was found to have similar physical exam of right hand being cold and thought to have decreased blood flow once again, so Dr. Cardenas was consulted, performed arteriogram on the morning of 12/23/19, was found to be patent, so Dr. Cardenas and Dr. Mcnair cleared for discharge. Insurance had approved outpatient dialysis bed to begin on . DISPOSITION: Stable. DISCHARGE INSTRUCTIONS: Location is home. DIET: Consistent carb. ACTIVITY: As tolerated. FOLLOWUP: Follow up with outpatient dialysis starting on , 12/25/19; Cardiac Rehab within 7 days; Dr. Mcnair in 2 to 3 weeks; Dr. Chiang, Cardiology; [facility] within 7 days. Job ID: [id number]
--- NOTE | 2019-12-25 09:16 | OP ---
DATE OF PROCEDURE: 12/23/2019 PREOPERATIVE DIAGNOSIS: Hand ischemia post arteriovenous fistula with revision. PROCEDURES PERFORMED: Thoracic aortogram, selective catheterization of the right brachial artery with angiograms. DESCRIPTION OF PROCEDURE: After prepping and draping the right groin, ultrasound-guided puncture was carried out of the right common femoral artery and 5-[place]izen [place] sheath. Wire was then advanced with an angled Armando catheter up into the thoracic aorta, where thoracic aortogram was obtained. Following this, the catheter was directed to the orifice of the brachiocephalic artery and angiograms obtained. The patient then had the wire advanced through the brachiocephalic artery into the axillary artery and the catheter followed over this to the mid brachial artery. The wire was then removed and runoff of the arm was obtained in multiple positions. Pullback pressures were then obtained across the origin of the innominate artery demonstrating about a 40 mm gradient. FINDINGS: The patient had a calcification of the brachiocephalic origin. The brachial artery was patent and just at the anastomosis, there was some staining or narrowing or calcification that was difficult to ascertain, but flow was good through this area. The Rudyard-Pérez graft filled slowly filling to the distal brachial radial artery complex. The AV fistula filled. The patient tolerated the procedure well. Job ID: [id number]
== END 2019-12-23 18:51 | disposition home or self-care (01) | DRG 252 ==
LOC: ERS 09:42 → 2NO 11:45 → ERHOLD 14:43 → 2NO 14:44
PROVIDERS: ADMIT Student in an Organized Health Care Education/Training Program; ATTEND Student in an Organized Health Care Education/Training Program
PROC: 06HY33Z Insertion of Infusion Device into Lower Vein, Percutaneous Approach (ICD-10-PCS; 2019-12-11)
PROC: 5A1D70Z Performance of Urinary Filtration, Intermittent, Less than 6 Hours Per Day (ICD-10-PCS; 2019-12-11)
PROC: 03170JD Bypass Right Brachial Artery to Upper Arm Vein with Synthetic Substitute, Open Approach (ICD-10-PCS; principal; 2019-12-16)
PROC: 02HV33Z Insertion of Infusion Device into Superior Vena Cava, Percutaneous Approach (ICD-10-PCS; 2019-12-16)
PROC: 0JH63XZ Insertion of Tunneled Vascular Access Device into Chest Subcutaneous Tissue and Fascia, Percutaneous Approach (ICD-10-PCS; 2019-12-16)
PROC: 02HV33Z Insertion of Infusion Device into Superior Vena Cava, Percutaneous Approach (ICD-10-PCS; 2019-12-16)
PROC: B518ZZA Fluoroscopy of Superior Vena Cava, Guidance (ICD-10-PCS; 2019-12-16)
PROC: B548ZZA Ultrasonography of Superior Vena Cava, Guidance (ICD-10-PCS; 2019-12-16)
PROC: 03WY0JZ Revision of Synthetic Substitute in Upper Artery, Open Approach (ICD-10-PCS; 2019-12-18)
PROC: B310ZZZ Fluoroscopy of Thoracic Aorta (ICD-10-PCS; 2019-12-19)
PROC: B31 Imaging, Upper Arteries, Fluoroscopy (ICD-10-PCS; 2019-12-19)
PROC: B31NZZZ Fluoroscopy of Other Upper Arteries (ICD-10-PCS; 2019-12-19)
DX: I13.2 Hypertensive heart and chronic kidney disease with heart failure and with stage 5 chronic kidney disease, or end stage renal disease (principal); I50.33 Acute on chronic diastolic (congestive) heart failure; N18.6 End stage renal disease; N17.9 Acute kidney failure, unspecified; J44.1 Chronic obstructive pulmonary disease with (acute) exacerbation; E87.2 Acidosis; I24.8 Other forms of acute ischemic heart disease; E87.1 Hypo-osmolality and hyponatremia; T82.898A Other specified complication of vascular prosthetic devices, implants and grafts, initial encounter; E87.0 Hyperosmolality and hypernatremia; Z20.828 Contact with and (suspected) exposure to other viral communicable diseases; E78.5 Hyperlipidemia, unspecified; F17.210 Nicotine dependence, cigarettes, uncomplicated; F12.10 Cannabis abuse, uncomplicated; E11.22 Type 2 diabetes mellitus with diabetic chronic kidney disease; I16.0 Hypertensive urgency; E78.00 Pure hypercholesterolemia, unspecified; E11.51 Type 2 diabetes mellitus with diabetic peripheral angiopathy without gangrene; I49.1 Atrial premature depolarization; I08.0 Rheumatic disorders of both mitral and aortic valves; D63.1 Anemia in chronic kidney disease; I48.0 Paroxysmal atrial fibrillation; I49.3 Ventricular premature depolarization; F14.10 Cocaine abuse, uncomplicated; E87.6 Hypokalemia; E87.5 Hyperkalemia; D69.6 Thrombocytopenia, unspecified; Y83.2 Surgical operation with anastomosis, bypass or graft as the cause of abnormal reaction of the patient, or of later complication, without mention of misadventure at the time of the procedure; Z95.1 Presence of aortocoronary bypass graft; Z95.5 Presence of coronary angioplasty implant and graft; Z90.49 Acquired absence of other specified parts of digestive tract; Z28.21 Immunization not carried out because of patient refusal; Z79.899 Other long term (current) drug therapy; Z79.51 Long term (current) use of inhaled steroids; Z79.84 Long term (current) use of oral hypoglycemic drugs; Z89.612 Acquired absence of left leg above knee; Z89.611 Acquired absence of right leg above knee; Z91.14 Patient's other noncompliance with medication regimen
CPT/HCPCS: 36217; 36415; 36416; 71045; 75710; 75774; 76942; 80048; 80053; 80061; 80306; 82550; 82553; 83036; 83690; 83735; 83880; 84100; 84145; 84484; 85025; 85379; 86580; 86704; 86706; 86803; 87340; 87522; 87635; 90935; 93005; 93306; 93798; 93970; 94640; 96372; 96374; 96375; C1751; C1752; G0257; J0690; J1642; J1644; J1650; J1940; J2001; J2250; J2270; J2405; J2704; J2720; J3010; J3490; J7512; J7620; L8670; Q9967; U0003

== ENCOUNTER 2019-12-27 17:54 | Inpatient (IN) | payer OTHER ==
[2019-12-27 19:19] LABS: #Eosinphils 0.1 thou/uL (0.0-0.7); #Monocytes 1.2 thou/uL (0.11-0.59); #Neutrophils 12.1 thou/uL (1.40-6.50); %Basophils 0.3 % (0.0-1.0); %Eosinophils 0.4 % (0.0-10.0); %Monocytes 8.1 % (0.0-10.0); %Neutrophils 84.1 % (42.0-75.0); Hemoglobin 11.3 g/dL (14.0-18.0); Mean Corpuscular HGB CONC 32.2 g/dL (32.0-36.0); Mean Corpuscular Hemoglobin 30.1 pg (27.0-31.0); Mean Corpuscular Volume 93.6 fL (78.0-98.0); Mean Platelet Volume 9.4 fL (7.4-10.4); Platelet Count 130 thou/uL (130-400); RBC Distribution Width 14.6 % (11.5-14.5); Red Blood Cell (RBC) Count 3.75 mill/uL (4.70-6.10); White Blood Cell (WBC) Count 14.3 thou/uL (4.8-10.8)
--- NOTE | 2019-12-27 20:16 | RAD ---
PORTABLE CHEST: 12/27/19 HISTORY: Hemosplit catheter insertion. Patient states incision split open yesterday. COMPARISON: 12/16/19 exam. FINDINGS: Heart size is within normal limits. The bilateral pleural effusions have diminished as compared to th e prior exam. Still some residual pleural and parenchymal change in the left base. No pneumothorax. T he right sided Hemosplit catheter has not changed in position. IMPRESSION: 1. No change in the position of the right sided Hemosplit catheter. 2. Reduction in the bilateral effusions and bibasilar lung changes. POS: OFF
[2019-12-27] MEDS ORDERED: Vancomycin 1 GM/200 ML BAG ONE (21:06)
[2019-12-27] MEDS ORDERED: Cefepime 2 GM VIAL ONE (21:06)
--- NOTE | 2019-12-27 21:28 | RAD ---
PORTABLE CHEST: 12/27/19 HISTORY: Central line placement. COMPARISON: Earlier exam the same day. Left sided central line has been placed. Catheter tip overlying the superior vena cava. No signs of p neumothorax. No other interval change. IMPRESSION: Placement of left sided central line. No signs of pneumothorax. POS: OFF
[2019-12-27 21:30] LABS: Bacteria/HPF None Seen HPF (None Seen); Bilirubin Negative (Negative); Blood, Urine Negative (Negative); Clarity Clear (Clear); Glucose, Urine (Dipstick) 200 mg/dL (Negative); Ketone, Urine Negative (Negative); Leukocyte Negative Leu/uL (Negative); Nitrite Negative (Negative); Protein, Urine (Dipstick) 300 mg/dL (Neg-Trace); RBC/HPF 0-3 HPF (0-3); Squamous Epithelial 0-3 HPF (0-3); Urobilinogen 6 mg/dL (Less than 2); WBC/HPF 0-3 HPF (0-3); pH, Urine 8.5 (5.0-9.0)
[2019-12-27 21:34] LABS: ALT (SGPT) 13 U/L (8-55); AST (SGOT) 24 U/L (5-34); Albumin 2.9 g/dL (3.4-4.8); Alkaline Phosphatase 91 U/L (40-110); Anion Gap 13 mmol/L (10-20); BUN (Urea Nitrogen) 9 mg/dL (8.4-25.7); Bilirubin, Total 0.9 mg/dL (0.2-1.2); Calc. Creatinine Clearance 0 mL/min (70-130); Carbon Dioxide 27 mmol/L (23-31); Chloride 94 mmol/L (98-107); Estimated GFR-MDRD 30; Globulin 3.3 g/dL (2.4-3.5); Glucose 135 mg/dL (80-115); Potassium 3.7 mmol/L (3.5-5.1); Protein, Total 6.2 g/dL (5.8-8.1); Sodium 130 mmol/L (136-145)
[2019-12-27] MEDS ORDERED: Morphine 4 MG/ML VIAL ONE (22:00)
--- NOTE | 2019-12-27 23:54 | PDOC.HHP ---
Hospitalist HPI - History of Present Illness Evaluation right upper extremity wound History of Present Illness: PCP: Dr. 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 The patient reports that he fell out of his bed the night prior to coming to the ER. He reports that the following morning he awoke and noticed that his right upper extremity AV fistula had opened up. He reports some associated pain to the affected extremity. He reports that his fistula was placed by Dr. Mcnair approximately 5 to 6 days ago. He denies any fever or chills. He denies any purulent drainage to the affected upper extremity. Denies any abdominal pain, nausea, vomiting, diarrhea. He is able to make urine, denies any dysuria or hematuria. Denies any chest pain, heart palpitations or shortness of breath. He has no other complaints at this time ED Course: VITAL SIGNS Sat Dec 27, 2019 17:55 YIN Patterson Dannette BP: 146/85, Pulse: 110, Resp: 19, Temp: 99.2 (Oral), O2 sat: 100 on (Room Air), Time: 12/27/2019 17:55. VITAL SIGNS Sat Dec 27, 2019 19:23 YIN Powell Cory BP: 174/99, Pulse: 110, Resp: 22, Temp: 99.2 (Oral), Pain: 9, O2 sat: 99 on (Room Air), Time: 12/27/2019 19:23. VITAL SIGNS Sat Dec 27, 2019 19:52 YIN Powell Cory BP: 137/86, Pulse: 123, Resp: 19, Pain: 9, O2 sat: 98 on (Room Air), Time: 12/27/2019 19:52. VITAL SIGNS Sat Dec 27, 2019 21:45 YIN Powell Cory BP: 144/71, Pulse: 109, Resp: 20, Temp: 99.7 (Oral), Pain: 9, O2 sat: 99 on (Room Air), Time: 12/27/2019 21:45. VITAL SIGNS Sat Dec 27, 2019 22:29 YIN Powell Cory BP: 140/70, Pulse: 104, Resp: 17, Temp: 99.5 (Oral), Pain: 7, O2 sat: 99 on (Room Air), Time: 12/27/2019 22:29. Medication administration: morphine intravenous 4 mg IV Push Given 22:05 12/27/2019 Normal Saline 1 L IV Piggy Back Given 22:03 12/27/2019 vancomycin in dextrose 5 % 1 g IV Piggy Back Given 21:42 12/27/2019 cefepime injection 2 g IV Piggy Back Given 21:14 Hospitalist ROS - Review of Systems All other systems reviewed; all pertinent +/- noted in HPI/Subj - Medication Medications: Noncompliant, does not take any home medications. 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 negative: ill appearing Eye: anicteric sclera ENT: normocephalic atraumatic Neck: supple, symmetric, no JVD Heart: RRR, no murmur, no gallops, no rubs, normal peripheral pulses Respiratory: CTAB, no wheezes, no rales, no ronchi, normal chest expansion, no tachypnea Gastrointestinal: soft, non-tender, normal bowel sounds, no guarding, no rig idity Extremities - other findings: Bilateral AKA Skin: no rashes Skin - other findings: Right upper extremity AV fistula dehiscence Neurological: cranial nerve grossly intact, no focal deficits Psychiatric: normal affect, A&O x 3 Hospitalist Results - Labs Result Diagrams: 12/27/19 19:09 12/27/19 21:03 Lab results: WBC 14.3 thou/uL (4.8-10.8) H 12/27/19 19:09 Hgb 11.3 g/dL (14.0-18.0) L 12/27/19 19:09 Hct 35.1 % (42.0-52.0) L 12/27/19 19:09 MCV 93.6 fL (78.0-98.0) 12/27/19 19:09 Plt Count 130 thou/uL (130-400) 12/27/19 19:09 Neutrophils % 84.1 % (42.0-75.0) H 12/27/19 19:09 Sodium 130 mmol/L (136-145) L 12/27/19 21:03 Potassium 3.7 mmol/L (3.5-5.1) 12/27/19 21:03 Chloride 94 mmol/L (98-107) L 12/27/19 21:03 Carbon Dioxide 27 mmol/L (23-31) 12/27/19 21:03 BUN 9 mg/dL (8.4-25.7) 12/27/19 21:03 Creatinine 2.65 mg/dL (0.7-1.3) H 12/27/19 21:03 Glucose 135 mg/dL (80-115) H 12/27/19 21:03 Lactic Acid 1.0 mmol/L (0.5-2.2) 12/27/19 21:03 Calcium 8.0 mg/dL (7.8-10.44) 12/27/19 21:03 Total Bilirubin 0.9 mg/dL (0.2-1.2) 12/27/19 21:03 AST 24 U/L (5-34) 12/27/19 21:03 ALT 13 U/L (8-55) 12/27/19 21:03 Alkaline Phosphatase 91 U/L (40-110) 12/27/19 21:03 Serum Total Protein 6.2 g/dL (5.8-8.1) 12/27/19 21:03 Albumin 2.9 g/dL (3.4-4.8) L 12/27/19 21:03 Urine Ketones Negative mg/dL (Negative) 12/27/19 21:15 Urine Blood Negative (Negative) 12/27/19:15 Urine Nitrite Negative (Negative) 12/27/19 21:15 Ur Leukocyte Esterase Negative Zara/uL (Negative) 12/27/19 21:15 Urine RBC 0-3 HPF (0-3) 12/27/19 21:15 Urine WBC 0-3 HPF (0-3) 12/27/19 21:15 Ur Squamous Epith Cells 0-3 HPF (0-3) 12/27/19 21:15 Urine Bacteria None Seen HPF (None Seen) 12/27/19 21:15 - EKG Interpretation EK lead EKG shows, sinus tachycardia, Interpretation:, Conduction normal, ST segments normal, T waves normal, [place] normal, Clinical impression:, No acute f indings for ischemia at this time. HR:.105 - Radiology Interpretation Chest x-ray Status: report reviewed by me Additional Comment: IMPRESSION: 1. No change in the position of the right sided Hemosplit catheter. 2. Reduction in the bilateral effusions and bibasilar lung changes IMPRESSION: Placement of left sided central line. No signs of pneumothorax Hospitalist H&P A/P - Problem (1) Sepsis Code(s): A41.9 - SEPSIS, UNSPECIFIED ORGANISM Status: Acute (2) Infected surgical wound Code(s): T81.49XA - INFECTION FOLLOWING A PROCEDURE, OTHER SURGICAL SITE, INIT Status: Acute (3) Hyponatremia Code(s): E87.1 - HYPO-OSMOLALITY AND HYPONATREMIA Status: Acute (4) ESRD (end stage renal disease) Code(s): N18.6 - END STAGE RENAL DISEASE Status: Chronic (5) DM2 (diabetes mellitus, type 2) Status: Chronic (6) HTN (hypertension) Code(s): I10 - ESSENTIAL (PRIMARY) HYPERTENSION Status: Chronic (7) CHF (congestive heart failure) Code(s): I50.9 - HEART FAILURE, UNSPECIFIED Status: Chronic (8) COPD (chronic obstructive pulmonary disease) Status: Chronic (9) Tobacco abuse Code(s): Z72.0 - TOBACCO USE Status: Chronic - Plan Plan: 64/M with [facility] newly diagnosed ESRD status post AV fistula placement presents for infected wound. Admit to telemetry floor, inpatient status. Expected length of stay greater than 2 midnights. Presented febrile, tachycardic, hypertensive, NL RR and SPO2. EKG sinus tachycardia, no ST elevations. CXR no acute process. WBCs 14.3, LA 1.0. Sodium 130, UA unremarkable Blood/urine CX pending. #Sepsis Received 1 L normal saline in ER. Elevated BP. Continue vancomycin and cefepime IVPB broad-spectrum coverage. Bacterial culture. Consult wound care. Consult Dr. Mcnair. N.p.o. #Infected surgical wound Continue broad-spectrum antibiotics. Consult general surgery. Consult wound care. #Hyponatremia Mild. Presented sodium 130. Likely hypotonic hyponatremia, secondary to ESRD and CHF. Recheck level in a.m. #ESRD Newly diagnosed, HemoSplit right upper chest. 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 We will consult nephrology for maintenance HD. Potassium 3.7, EKG as above. CXR bilateral effusions improved. #DM2 Noncompliant, takes no medications. Presented BG 135. Mild ISS. AC/at bedtime Accu-Cheks. #HTN Noncompliant, takes no home medications. Presented hypertensive. We will continue to monitor BP. We will add prn antihypertensives if necessary. #CHF Noncompliant, takes no medications. EKG and CXR as above. #COPD Appears stable. Noncompliant, takes no medications for this. #Tobacco abuse Half pack per day smoker. Unwilling to quit. Tobacco cessation counseling. Heparin for DVT prophylaxis. No GI prophylaxis. Full code. Discussed the case with Dr. Julia Parson.
[2019-12-28] MEDS ORDERED: Acetaminophen 325 MG TAB PO PRN (00:15)
[2019-12-28] MEDS ORDERED: Ondansetron PF 4 MG/2 ML Vial IVP PRN (00:15)
[2019-12-28] MEDS ORDERED: Ondansetron ODT 4 MG TAB PO PRN (00:15)
[2019-12-28] MEDS ORDERED: Dextrose 50% Abboject 50 ML SYRINGE SLOW IVP PRN (00:22)
[2019-12-28] MEDS ORDERED: Dextrose 5% in Water 1,000 ML IV PRN (00:22)
[2019-12-28] MEDS ORDERED: HumaLOG 300 UNITS/3 ML VIAL SC PRN (00:22)
[2019-12-28] MEDS ORDERED: Acetaminophen 500 MG TAB ONE (00:30)
[2019-12-28 04:33] LABS: Anion Gap 12 mmol/L (10-20); BUN (Urea Nitrogen) 11 mg/dL (8.4-25.7); Calc. Creatinine Clearance 22 mL/min (70-130); Calcium 8.1 mg/dL (7.8-10.44); Carbon Dioxide 22 mmol/L (23-31); Chloride 98 mmol/L (98-107); Estimated GFR-MDRD 28; Glucose 144 mg/dL (80-115); Potassium 3.3 mmol/L (3.5-5.1); Sodium 129 mmol/L (136-145)
[2019-12-28 06:00] LABS: #Eosinphils 0.1 thou/uL (0.0-0.7); #Monocytes 1.2 thou/uL (0.11-0.59); #Neutrophils 8.7 thou/uL (1.40-6.50); %Basophils 0.3 % (0.0-1.0); %Eosinophils 0.5 % (0.0-10.0); %Lymphocytes 8.8 % (21.0-51.0); %Monocytes 10.9 % (0.0-10.0); %Neutrophils 79.6 % (42.0-75.0); Mean Corpuscular HGB CONC 32.2 g/dL (32.0-36.0); Mean Corpuscular Hemoglobin 30.2 pg (27.0-31.0); Mean Corpuscular Volume 93.7 fL (78.0-98.0); Mean Platelet Volume 10.5 fL (7.4-10.4); Platelet Count 110 thou/uL (130-400); Platelet Morphology Comment Appears Decreased; RBC Distribution Width 14.6 % (11.5-14.5); Red Blood Cell (RBC) Count 3.31 mill/uL (4.70-6.10); White Blood Cell (WBC) Count 10.9 thou/uL (4.8-10.8)
[2019-12-28] MEDS ORDERED: FLU VACC QS2020-21(6MOS UP)/PF 60 MCG/0.5 ML SYRINGE IM ONE (09:00)
[2019-12-28] MEDS: Heparin 5,000 UNITS/ML VIAL SC SCH ×2 (09:19→20:15)
--- NOTE | 2019-12-28 09:34 | PDOC.FM ---
- Subjective Subjective: Patient doing well today. Mild pain in the right arm, relieved by 1x dose of Morphine. Denies fever, chills, N/V, abdominal pain, ANDERS, CP, SOB. NPO pending surgery consult. - Objective MAR Reviewed: Yes Vital Signs & Weight: Vital Signs (12 hours) Temp Pulse Resp BP Pulse Ox 12/28/19 07:14 98.3 F 99 16 127/60 98 12/28/19 03:37 98.3 F 91 15 136/65 97 12/28/19 03:03 99 12/28/19 02:39 98.4 F 105 H 20 131/70 99 Weight Weight 57.9 kg Result Diagrams: 12/28/19 03:35 12/28/19 03:35 Phys Exam - Physical Examination Constitutional: NAD Neck: full ROM Respiratory: no wheezing, clear to auscultation bilateral Cardiovascular: RRR, no significant murmur Gastrointestinal: soft, non-tender b/l AKA Psychiatric: A&O x 3 Skin: normal turgor -: right arm wound covering Dx/Plan - Plan Plan: 64/M with PMH newly diagnosed ESRD status post AV fistula placement presents for infected wound. #Sepsis 2/2 infected surgical wound sepsis resolved Received 1 L normal saline in ER Presented febrile, tachycardic, hypertensive, NL RR and SPO2 EKG sinus tachycardia, no ST elevations CXR no acute process WBCs 14.3, LA 1.0 UA unremarkable Blood/urine CX pending Continue vancomycin and cefepime IVPB broad-spectrum coverage Follow up bacterial culture Consult wound care Consult Dr. Mcnair, surgery N.p.o. pending surgery consult #Hyponatremia Mild. 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 Add prn antihypertensives if necessary #CHF Continue home meds EKG and CXR as above #COPD Appears stable Continue home meds #Tobacco abuse Half pack per day smoker Unwilling to quit Tobacco cessation counseling DVT Ppx: Heparin Code: Full code. PCPJim Carrington Dispo: Admit to telemetry floor, inpatient status. Expected length of stay greater than 2 midnights.
[2019-12-28] MEDS ORDERED: Morphine 2 MG/ML VIAL SLOW IVP SCH (09:45)
[2019-12-28 11:42] LABS: SARS-CoV-2 MS2 Positive; SARS-CoV-2 N Gene Negative; SARS-CoV-2 S Gene Negative; SARS-CoV-2 by NAA Not Detected (NotDetected); SARS-CoV-2 orf1ab Negative
[2019-12-28] MEDS ORDERED: Acetaminophen 500 MG TAB PO SCH (13:15)
[2019-12-28] MEDS: Fentanyl 100 MCG/2 ML VIAL SLOW IVP PRN ×2 (13:26→16:21)
--- NOTE | 2019-12-28 16:03 | PDOC.GSCN ---
Surgery Consult: HPI - Consult details Date: 12/28/19 Time: 16:00 History of present illness: 12/28/19 16:00 Chief complaint-I am hungry History of present illness-the patient is a 64-year-old gentleman who has a past medical history of COPD, congestive heart failure, coronary artery disease, peripheral vascular disease, hypertension, hyperlipidemia, diabetes, and renal failure who presented back to the hospital yesterday with complaints of an open wound on his right arm. Unfortunately, the patient was just discharged on 22 December. He states that he fell at home on the and that his wound opened up. He has been living in that situation until he decided to present back to the emergency room yesterday, the evening on the . Patient describes some l ocalized tenderness in the area. Pain is 3 out of 10. Well localized. Nonradiating. Dull. Worse with pressure. Better with rest. Surgery Consult: ROS - Review of Systems ROS unobtainable: other (Negative for 10 system, two-point per system other than HPI) Surgery Consult: [facility] Past Medical History: Congestive heart failure, hypertension, hyperlipidemia, COPD, iron deficiency anemia, chronic renal failure on dialysis, diabetes, coronary artery disease, peripheral vascular disease Past Surgical History: Coronary artery bypass grafting, brachial axillary graft placement, DRIL procedure, tunneled dialysis catheter placement, right hemicolectomy, bilateral lower extremity amputation - Past Family History Pertinent family history: Diabetes and hypertension Family history: reviewed and not pertinent - Past Social History Smoking Status: Current every day smoker Alcohol Use: occasional Drug Use History: marijuana Living Situation: with family/parents, other (Lives with friends) Surgery Consult: Exam - Vital signs Vital signs: Vital Signs - Most Recent Temp Pulse Resp BP Pulse Ox 98.7 F 98 23 H 149/65 H 99 12/28/19 11:07 12/28/19 11:07 12/28/19 11:07 12/28/19 11:07 12/28/19 11:07 - Physical Exam Additional exam: General-[no acute distress, chronically ill] Head-[normocephalic, atraumatic] HEENT- [EOMI], [PERRLA] Neck-[trachea midline, supple] Lungs-[grossly clear to auscultation], [normal air movement], chest demonstrates a right catheter without erythema or drainage Heart-[regular regular], [no murmurs] Abdomen-[soft], [nondistended], [nontender], [normal active bowel sounds] Musculosketal-[bilateral lower extremity amputations] Psychiatric-[good insight, good judgment] Skin-[good turgor, no jaundice] Neuro- [GCS 15], [CN II-XII intact] In the right antecubital fossa, part of the incision has opened up. There is still a good thrill in the graft. There appears to be tunneling towards, what I assume is the anastomosis. There is thin drainage with fibrinous exudate around the wound. This is clearly not an acute disruption given the appearance of the wound as the wound edges of already started to attempt to granulate. No bleeding. He has a excellent palpable radial pulse. Patient says that he has decreased sensation over the thumb and index finger Surgery Consult: Meds - Medications Medications: Current Medications Acetaminophen (Acetaminophen 325 Mg Tab) 650 mg PO Q4H PRN PRN Reason: Headache/Fever/Mild Pain (1-3) Last Admin: 12/28/19 08:37 Dose: 650 mg Documented by: Albuterol/Ipratropium (Ipratropium/Albuterol Sulfate 3 Ml Neb) 3 ml NEB QIDPRN PRN PRN Reason: Wheezing/SOB Amitriptyline HCl (Amitriptyline Hcl 25 Mg Tab) 25 mg PO HS ALLEN Carvedilol (Carvedilol 3.125 Mg Tab) 6.25 mg PO BID ALLEN Dextrose/Water (Dextrose 50% Abboject 50 Ml Syringe) 25 gm SLOW IVP PRN PRN PRN Reason: Hypoglycemia Diltiazem HCl (Diltiazem Hcl 30 Mg Tablet) 30 mg PO Q6HR ALLEN Last Admin: 12/28/19 12:17 Dose: 30 mg Documented by: Fentanyl (Fentanyl 100 Mcg/2 Ml Vial) 12.5 mcg SLOW IVP Q2H PRN PRN Reason: Breakthrough Pain Last Admin: 12/28/19 13:26 Dose: 12.5 mcg Documented by: Ferrous Sulfate (Ferrous Sulfate 325 Mg Tab) 325 mg PO DAILY [facility]EN Furosemide (Furosemide 40 Mg Tab) 40 mg PO DAILY [facility] Glucagon (Glucagon 1 Mg/Ml Vial) 1 mg IM PRN PRN PRN Reason: Hypoglycemia Heparin Sodium (Porcine) (Heparin 5,000 Units/Ml Vial) 5,000 units SC BID [facility] Last Admin: 12/28/19 09:19 Dose: 5,000 units Documented by: Cefepime HCl 2 gm/ Sodium (Chloride) 100 mls @ 200 mls/hr IVPB 2000 [facility] Dextrose/Water (D5w) 1,000 mls @ 0 mls/hr IV .Q0M PRN PRN Reason: Hypoglycemia Vancomycin HCl 750 mg/ Sodium (Chloride) 250 mls @ 250 mls/hr IVPB 2100 [facility] Insulin Human Lispro (Humalog 300 Units/3 Ml Vial) 0 units SC .MILD SLIDING SCALE PRN PRN Reason: Mild Correctional Scale Insulin Human Lispro (Humalog 300 Units/3 Ml Vial) 0 units SC .BEDTIME SLIDING SC PRN PRN Reason: Bedtime Correctional Scale Miscellaneous Medication (Pharmacy To Dose Vancomycin) 1 each IVPB PRN PRN PRN Reason: Pharmacy to dose Mometasone Furoate/Formoterol Fumar (Mometasone 200 Mcg/Formoterol 5 Mcg 120 Puff Inhaler) 2 puff INH BID-RT [facility] Nicotine (Nicotine 21 Mg Patch) 21 mg TD DAILY [facility] Ondansetron HCl (Ondansetron Odt 4 Mg Tab) 4 mg PO Q6H PRN PRN Reason: Nausea/Vomiting Ondansetron HCl (Ondansetron Pf 4 Mg/2 Ml Vial) 4 mg IVP Q6H PRN PRN Reason: Nausea/Vomiting Pregabalin (Pregabalin 50 Mg Cap) 200 mg PO BID [facility] Rosuvastatin Calcium (Rosuvastatin 20 Mg Tab) 20 mg PO HS [facility] Sodium Chloride (Flush - Normal Saline 10 Ml Syringe) 10 ml IVF PRN PRN PRN Reason: Saline Flush - Allergies Allergies/Adverse Reactions: Allergies Allergy/AdvReac Type Severity Reaction Status Date / Time No Known Allergies Allergy Verified 05/24/19 15:36 Surgery Consult: Results - Labs Result Diagrams: 12/28/19 03:35 12/28/19 03:35 Lab results: Laboratory Results WBC 10.9 thou/uL (4.8-10.8) H 12/28/19 03:35 RBC 3.31 mill/uL (4.70-6.10) L 12/28/19 03:35 Hgb 10.0 g/dL (14.0-18.0) L 12/28/19 03:35 Hct 31.1 % (42.0-52.0) L 12/28/19 03:35 MCV 93.7 fL (78.0-98.0) 12/28/19 03:35 MCH 30.2 pg (27.0-31.0) 12/28/19 03:35 MCHC 32.2 g/dL (32.0-36.0) 12/28/19 03:35 RDW 14.6 % (11.5-14.5) H 12/28/19 03:35 Plt Count 110 thou/uL (130-400) L 12/28/19 03:35 MPV 10.5 fL (7.4-10.4) H 12/28/19 03:35 Neutrophils % 79.6 % (42.0-75.0) H 12/28/19 03:35 Neutrophils % (Manual) Not Reportable 12/28/19 03:35 Lymphocytes % 8.8 % (21.0-51.0) L 12/28/19 03:35 Monocytes % 10.9 % (0.0-10.0) H 12/28/19 03:35 Eosinophils % 0.5 % (0.0-10.0) 12/28/19 03:35 Basophils % 0.3 % (0.0-1.0) 12/28/19 03:35 Neutrophils # 8.7 thou/uL (1.40-6.50) H 12/28/19 03:35 Lymphocytes # 1.0 thou/uL (1.20-3.40) L 12/28/19 03:35 Monocytes # 1.2 thou/uL (0.11-0.59) H 12/28/19 03:35 Eosinophils # 0.1 thou/uL (0.0-0.7) 12/28/19 03:35 Basophils # 0.0 thou/uL (0.0-0.2) 12/28/19 03:35 Plt Morphology Comment Appears Decreased L 12/28/19 03:35 ESR Westergren 35 mm/hr (Less than 20) H 12/28/19 03:35 Sodium 129 mmol/L (136-145) L 12/28/19 03:35 Potassium 3.3 mmol/L (3.5-5.1) L 12/28/19 03:35 Chloride 98 mmol/L (98-107) 12/28/19 03:35 Carbon Dioxide 22 mmol/L (23-31) L 12/28/19 03:35 Anion Gap 12 mmol/L (-20) 12/28/19 03:35 BUN 11 mg/dL (8.4-25.7) 12/28/19 03:35 Creatinine 2.82 mg/dL (0.7-1.3) H 12/28/19 03:35 Estimated GFR (MDRD) 28 12/28/19 03:35 Glucose 144 mg/dL (80-115) H 12/28/19 03:35 POC Glucose 80 mg/dL (70-100) 12/28/19 11:25 Lactic Acid 1.0 mmol/L (0.5-2.2) 12/27/19 21:03 Calcium 8.1 mg/dL (7.8-10.44) 12/28/19 03:35 Magnesium 1.5 mg/dL (1.6-2.6) L 12/28/19 03:35 Total Bilirubin 0.9 mg/dL (0.2-1.2) 12/27/19 21:03 AST 24 U/L (5-34) 12/27/19 21:03 ALT 13 U/L (8-55) 12/27/19 21:03 Alkaline Phosphatase 91 U/L (40-110) 12/27/19 21:03 C-Reactive Protein 8.86 mg/dL (= or < 0.5) H 12/28/19 03:35 Serum Total Protein 6.2 g/dL (5.8-8.1) 12/27/19 21:03 Albumin 2.9 g/dL (3.4-4.8) L 12/27/19 21:03 Globulin 3.3 g/dL (2.4-3.5) 12/27/19 21:03 Albumin/Globulin Ratio 0.9 g/dL (1.2-2.2) L 12/27/19 21:03 Urine Color Yellow (Yellow) 12/27/19 21:15 Urine Clarity Clear (Clear) 12/27/19 21:15 Urine pH 8.5 (5.0-9.0) 12/27/19 21:15 Ur Specific [place] 1.010 (1.002-1.036) 12/27/19 21:15 Urine Protein 300 mg/dL (Neg-Trace) A 12/27/19 21:15 Urine Glucose (UA) 200 mg/dL (Negative) A 12/27/19 21:15 Urine Ketones Negative mg/dL (Negative) 12/27/19 21:15 Urine Blood Negative (Negative) 12/27/19 21:15 Urine Nitrite Negative (Negative) 12/27/19 21:15 Urine Bilirubin Negative (Negative) 12/27/19 21:15 Urine Urobilinogen 6 mg/dL (Less than 2) A 12/27/19 21:15 Ur Leukocyte Esterase Negative Zara/uL (Negative) 12/27/19 21:15 Urine RBC 0-3 HPF (0-3) 12/27/19 21:15 Urine WBC 0-3 HPF (0-3) 12/27/19 21:15 Ur Squamous Epith Cells 0-3 HPF (0-3) 12/27/19 21:15 Urine Bacteria None Seen HPF (None Seen) 12/27/19 21:15 Hyaline Casts 0-3 LPF (0-3) 12/27/19 21:15 SARS-CoV-2 (PCR) Not Detected (NotDetected) 12/27/19 22:45 Surgery Consult: A/P - Problem (1) Infected surgical wound Current Visit: Yes Code(s): T81.49XA - INFECTION FOLLOWING A PROCEDURE, OTHER SURGICAL SITE, INIT Status: Acute Assessment and Plan: This wound has thin drainage and I am afraid that there is potential for graft involvement. The patient's white blood cell count was elevated but has come down with being in the hospital. This is not a result of a surgical site infection, yet this is secondary to a patient fall at home with traumatic disruption of an incision with delayed presentation to the hospital. I read the operative notes from the patient's previous admission. This is an unfortunate situation as the team has diligently attempted to provide this gentleman with dialysis access. I do not think an emergency trip to the operating room tonight is going to change any ultimate outcome. Patient may eat right now. N.p.o. after midnight. I will place him on the OR schedule tomorrow for Dr. Mcnair. (2) ESRD (end stage renal disease) Current Visit: Yes Code(s): N18.6 - END STAGE RENAL DISEASE Status: Chronic Assessment and Plan: Patient still has tunneled dialysis catheter access and will be able to receive dialysis.
[2019-12-28] MEDS: Acetaminophen 325 MG TAB PO SCH ×2 (17:49→20:13)
[2019-12-28] MEDS: Mometasone 200 MCG/Formoterol 5 MCG 120 PUFF INHALER INH SCH (19:19)
[2019-12-28] MEDS ORDERED: Magnesium 2 GM/50 ML 2 GM in Premix Bag 1 BAG IVPB SCH (19:45)
--- NOTE | 2019-12-28 20:02 | CON ---
DATE OF CONSULTATION: REASON FOR CONSULTATION: End-stage renal disease for maintenance hemodialysis Sunday, , and Sunday. HISTORY OF PRESENT ILLNESS: This patient is a very pleasant 64-year-old gentleman who is on dialysis Sunday, , and Sunday, presented to the hospital after having pain in the arm. AV fistula was placed. The patient denies any nausea, vomiting, or chest pain. PAST MEDICAL HISTORY: Significant for end-stage renal disease, hypertension, anemia, COPD, congestive heart failure, AV fistula, tunneled dialysis catheter, history of CABG, history of diabetes mellitus, history of CABG, history of bilateral AKA, back surgery. SOCIAL HISTORY: No alcohol use. FAMILY HISTORY: Negative for ESRD. ALLERGIES: REVIEWED. HOME MEDICATIONS: List reviewed. HOSPITAL MEDICATIONS: List reviewed. REVIEW OF SYSTEMS: Fifteen-point review of system was performed and negative except for positive noted above. HEENT: Eyes intact, no diplopia. Ears: No hearing loss or earache. Nose: No discharge or bleeding. CHEST: No cough or phlegm. ABDOMEN: No nausea or vomiting. GENITOURINARY: No hematuria. No Weinberg catheter. MUSCULOSKELETAL: No low back pain. No joint swelling or pain. NEUROLOGICAL: No syncope. No seizures. SKIN: No complaints of rash or itching. PSYCHIATRIC: No depression. CONSTITUTIONAL: No weight loss or loss of appetite. PHYSICAL EXAMINATION: GENERAL: The patient is awake and alert. VITAL Signs: Afebrile, pulse 75, breathing at 16, blood pressure was 140/85. HEENT: Head normocephalic and atraumatic. Eyes intact, no ulcers. Nose intact, no ulcers. Ears intact, no ulcers. NECK: Supple. No JVD. CHEST: Symmetrical and clear. CARDIOVASCULAR: Shows S1 and S2, no rub, no murmur. GASTROINTESTINAL: Abdomen is soft, bowel sounds positive. EXTREMITIES: Show no edema or ulcers. He has bilateral AKA. SKIN: Shows no rash or petechiae. MUSCULOSKELETAL: Shows no joint swelling or stiffness. GENITOURINARY: Shows no Weinberg or CVA tenderness. NEUROLOGIC: Motor intact. Cranial nerves intact. LABORATORY DATA: Reviewed. ASSESSMENT AND PLAN: 1. Stage 6 chronic kidney disease. Plan dialysis Sunday. 2. Hypertension, stable. 3. Anemia, stable. 4. Medication based on GFR appropriate. 5. AV fistula complication, management per General Surgery. Job ID: [id number]
[2019-12-28] MEDS: Cefepime 2 GM in Sodium Chloride 0.9% 100 ML IVPB SCH (20:12)
[2019-12-28] MEDS: Carvedilol 3.125 MG TAB PO SCH (20:13)
[2019-12-28] MEDS: Rosuvastatin 20 MG TAB PO SCH (20:13)
[2019-12-28] MEDS: Pregabalin 50 MG CAP PO SCH (20:14)
[2019-12-28] MEDS: Amitriptyline HCl 25 MG TAB PO SCH (20:16)
[2019-12-28] MEDS: Vancomycin HCl 750 MG in Sodium Chloride 0.9% 250 ML 250 ML IVPB SCH (20:19)
[2019-12-28] MEDS ORDERED: Vancomycin 1 GM in Premix Bag 1 BAG IVPB SCH (22:00)
[2019-12-29] MEDS: Acetaminophen 325 MG TAB PO SCH ×7 (01:45→23:50)
[2019-12-29 04:25] LABS: Magnesium 2.1 mg/dL (1.6-2.6); Phosphorus 3.7 mg/dL (2.3-4.7)
--- NOTE | 2019-12-29 05:58 | PDOC.FM ---
- Subjective Subjective: Pt complains of 10/10 pain in R arm/hand. Denies CP, SOB, N/V. - Objective Vital Signs & Weight: Vital Signs (12 hours) Temp Pulse Resp BP Pulse Ox 12/29/19 03:43 97.6 F 78 16 124/60 98 12/29/19 00:00 100 18 12/28/19 20:00 97.4 F L 99 20 122/56 L 97 12/28/19 19:19 77 16 100 Weight Weight 56.6 kg I&O: 12/27/19 12/28/19 12/29/19 06:59 06:59 06:59 Intake Total 720 Output Total 420 Balance 300 Result Diagrams: 12/28/19 03:35 12/28/19 03:35 Phys Exam - Physical Examination Constitutional: NAD HEENT: moist MMs, sclera anicteric Neck: supple, full ROM left IJ central line Respiratory: no wheezing, clear to auscultation bilateral Cardiovascular: RRR, no significant murmur hemodialysis catheter R upper chest Gastrointestinal: soft, non-tender, no distention Musculoskeletal: no edema, pulses present b/l AKA Neurological: non-focal, normal sensation Psychiatric: normal affect, A&O x 3 Skin: no rash, cap refill <2 seconds Deviation from normal: bandage on R UE Dx/Plan - Plan Plan: 64/M with PMH newly diagnosed ESRD status post AV fistula placement presents for infected wound. #Sepsis 2/2 pseudomonas bacteremia -sepsis POA -BCx: pseudomonas -abx: vancomycin and cefepime -Consult wound care -Consult Dr. Mcnair, surgery -NPO. plan is for surgery today #Hyponatremia -Na 129 -Likely hypotonic hyponatremia, secondary to ESRD -will monitor #ESRD -Newly diagnosed, hemodialysis catheter right upper chest -HD on /SUN -Consult nephrology -consult CM - outpatient dialysis bed #DM2 -Mild SSI -accucheck ACHS #HTN -Continue home meds -Continue to monitor #CHF -Continue home meds #COPD -Continue home meds #Tobacco abuse -Half pack per day smoker -encourage cessation DVT Ppx: Heparin Code: Full code. RYAN Carrington Diet: NPO Dispo: Admit to telemetry floor, inpatient status. pending surgery today. LOS > 48hrs. Addendum - Attending - Attending Attestation Date/Time: 12/29/19 1124 I personally evaluated the patient and discussed the management with Dr. Lindo. I agree with the History, Examination, Assessment and Plan documented above with any addition or exceptions noted below.
[2019-12-29] MEDS: Mometasone 200 MCG/Formoterol 5 MCG 120 PUFF INHALER INH SCH ×2 (07:37→19:16)
[2019-12-29] MEDS: Pregabalin 50 MG CAP PO SCH ×2 (08:38→20:53)
[2019-12-29] MEDS: Furosemide 40 MG TAB PO SCH (08:39)
[2019-12-29] MEDS: Carvedilol 3.125 MG TAB PO SCH ×2 (08:39→20:54)
[2019-12-29] MEDS: Ferrous Sulfate 325 MG TAB PO SCH (08:39)
[2019-12-29] MEDS: Nicotine 21 MG PATCH TD SCH (08:40)
[2019-12-29] MEDS: Morphine 4 MG/ML VIAL SLOW IVP PRN ×3 (11:21→18:58)
[2019-12-29] MEDS: Heparin 5,000 UNITS/ML VIAL SC SCH ×2 (11:27→20:54)
--- NOTE | 2019-12-29 11:59 | PRG ---
DATE OF SERVICE: 12/29/2019 SUBJECTIVE: Patient was seen and examined at bedside and overnight events noted. Patient denies any shortness of breath or chest pain or palpitation. No history of nausea or vomiting or diarrhea or fever or chills or cramps. OBJECTIVE: General: This is a well-built male, in no apparent distress. Vital Signs: Temperature 97.7. Heart Rate 75. Respiratory rate 16. Blood pressure 125/61. HEENT: Atraumatic, normocephalic. Oral mucosa is moist. Neck: Supple. Cardiovascular: S1, S2 heard. Rate and rhythm regular. Respiratory: Clear to auscultation. Gastrointestinal: Abdomen is soft. Musculoskeletal: No tenderness. No edema. Dermatologic: No skin rash. Neurologic: Alert and awake and oriented x3. No focal neurologic deficits. Moving all the extremities. Psychiatric: Mood and affect normal. LABORATORY DATA: No labs done today. ASSESSMENT: 1. End-stage renal disease. Continue dialysis TTS as tolerated. 2. Edema, controlled. 3. History of hypertension. 4. Anemia of chronic disease. Monitor labs. 5. We will plan to continue dialysis on Sunday, , and Sunday. 6. Hypoalbuminemia. PLAN: We will continue to follow. Job ID: [id number]
--- NOTE | 2019-12-29 14:56 | PRG ---
DATE OF SERVICE: 12/29/2019 Prudencio Calderon is a 64-year-old black male patient who lives at home, bilateral amputee. He was recently hospitalized in need of dialysis access. He underwent a left arm dialysis graft tapered 4T07 on 12/16/2019. He was appreciated postoperatively to have pain in his right hand, underwent arteriography revealing arterial steal from the graft and subsequently underwent a DRIL procedure on 12/18/2019. Postprocedural, he had continued pain in his hand and some dysfunction. Repeat arteriogram performed revealed, on 12/25/2019, patent revascularization graft with innominate artery stenosis resulting in a 40 mm gradient. The patient still has some right hand dysfunction. The DRIL procedure is intact. He has Doppler pulses in his wrist. The patient was discharged home recently. He states he tried to come by my office on Sunday, but I had an emergency and had to reschedule. The patient was admitted over the weekend and had an open antecubital wound. The graft is exposed. Dr. Cordova saw him in my absence yesterday. The patient had some graft. The slough was debrided at the bedside and Wound Care has been consulted to place a wound graft. The patient will need to have vancomycin sliding scale administered during dialysis. We will ask Wound Care to place wound VAC and arrange outpatient wound VAC care. We will observe him in the hospital this week. When the wound is stable, plan discharge home. Hopefully, this will heal secondarily. Job ID: [id number]
[2019-12-29 20:41] LABS: Vancomycin, Trough 25.5 ug/mL
[2019-12-29] MEDS: Cefepime 2 GM in Sodium Chloride 0.9% 100 ML IVPB SCH (20:52)
[2019-12-29] MEDS: Rosuvastatin 20 MG TAB PO SCH (20:53)
[2019-12-29] MEDS: Amitriptyline HCl 25 MG TAB PO SCH (20:54)
[2019-12-29] MEDS: Vancomycin HCl 750 MG in Sodium Chloride 0.9% 250 ML 250 ML IVPB SCH (21:04)
[2019-12-29] MEDS ORDERED: Vancomycin HCl 750 MG in Sodium Chloride 0.9% 250 ML 250 ML IVPB SCH (21:15)
--- NOTE | 2019-12-29 23:34 | CON ---
DATE OF CONSULTATION: 12/29/2019 REASON FOR CONSULT: Bacteremia. HISTORY OF PRESENT ILLNESS: A 64-year-old, history of type 2 diabetes, end-stage renal disease, ischemic cardiomyopathy, and hypertension, as well as peripheral vascular disease with bilateral AKAs, who had a right-sided dialysis graft placed by Dr. Mcnair. The procedure included a right femoral vein Trialysis catheter. This was a temporary access. On December 15, he had a right IJ cuffed tunneled dialysis catheter and a left IJ central line. On December 18, patient had drill procedure right arm using PTFE 6 mm graft. On December 20, patient had angiograms of the right innominate, subclavian, axillary, brachial areas with good flow noted after graft was occluded and then on December 24, patient had an angiogram of the thoracic aorta and so there was evidence of calcification of the brachiocephalic origin. The brachial artery was patent. Flow is mostly adequate to the area. Patient continued with pain in the right upper extremity, but the numbness resolved after the drill procedure and then the pain resumed again with quite severe intensity. The patient's temperature max was 99.2 and white cell count is elevated at 14.3 on the with a left shift. We have 2 sets of blood cultures on admission, we have 2 sets from the central line IJ and from the arm. The central line draws yielded Pseudomonas aeruginosa and the arm abscess also yielded Pseudomonas aeruginosa. Currently, Mr. Calderon appears in no distress, although he tries to keep his right upper extremity still. Otherwise, the pain becomes intense. Denies any headaches. No visual symptoms, sore throat, odynophagia, or dysphagia. No dyspnea or cough. No chest pain. No back pain. No abdominal pain. Still has some urine output. He has bilateral AKAs without issues there. PAST MEDICAL HISTORY: Includes ischemic cardiomyopathy, type 2 diabetes, hyperlipidemia, hypertension, peripheral vascular disease, bilateral AKAs, back surgery with laminectomy, bypass graft surgery, fem-pop bypass which failed and resulted in the amputations, end-stage renal disease with access through a right IJ tunneled catheter and procedure to establish access with a graft in the right upper extremity which led to steal syndrome, recent drill procedure was carried out by Dr. Mcnair. SOCIAL HISTORY: Still smoking about three or four cigarettes a day. Drinks weekly. ALLERGIES: NONE. MEDICATIONS: 1. Coreg. 2. Norvasc. 3. Diltiazem. 4. Furosemide. 5. Lyrica. 6. Terbinafine. 7. Ferrous sulfate. 8. Symbicort. CURRENT MEDICATIONS: We have; 1. Coreg. 2. Cefepime. 3. Furosemide. 4. Insulin. 5. Morphine. 6. Ondansetron. 7. Vancomycin. PHYSICAL EXAMINATION: VITAL SIGNS: Temperature 97.7, O2 sat 98, BP 120/60, and heart rate 78. GENERAL: Appears in no distress, oriented, pleasant. SKIN: With sort of irregular shaped wound in the medial aspect of the antecubital fossa. Most of it covered by red tissue, a little undermining. I think there is an area of exposed graft at the center of this wound. Patient has a tunneled catheter in the right IJ position and a triple-lumen in the left IJ position. Does not have a Weinberg catheter. No lymphadenopathy. HEENT: Sclerae are kind of smalls in color. Pupils are 2 mm and reactive. Oral cavity, unremarkable. NECK: Supple. LUNGS: Symmetric. Clear breath sounds. HEART: S1, S2 regular rate with a soft aortic murmur. ABDOMEN: Soft. Not distended or tender. No ascites. No bladder distention. GENITOURINARY: No genital abnormalities. EXTREMITIES: AKA stumps are intact and without any issues. He is able to move the extremities with limitations. The right upper extremity cannot move because of pain. The left one is okay. NEUROLOGIC: He is awake and oriented, follows commands. Speech is normal. Recollection normal. Orientation, normal. LABORATORY DATA: White cell count is down to 10.9, hemoglobin 10, and platelets 110. Sodium 129, creatinine 2.82 with a normal liver profile. Albumin 2.9. Urinalysis is unremarkable. SARS-CoV-2 PCR not detected. Microbiology with Pseudomonas aeruginosa one sample from the arm and two samples from the central IJ vein. IMAGING: A chest x-ray just for checking the placement of a central line and that was not remarkable and there is a marking ultrasound. ASSESSMENT: 1. Peripheral vascular disease, bilateral [id number] amputations; chronic smoking, still active; type 2 diabetes; end-stage renal disease, on hemodialysis with tunneled catheter in the right IJ position; and placement of PTFE graft connecting brachial artery to axillary vein and this led to steal syndrome and that prompted the performance of a drill procedure using a PTFE 6 mm graft. 2. Pseudomonas aeruginosa bacteremia and positive cultures from the graft site. DISCUSSION: The management options include total excision of the graft or subtotal excision or partial excision. Maintenance of the graft foreign body in place in the face of Pseudomonas aeruginosa colonization and bacteremia is usually associated with failure of conservative management, although this seems to be the option favored at this moment. Some cases appeared to be successfully salvaged without removal of the foreign body. The other issues that he does have tunneled catheter in the right IJ position as well as the left-sided catheter and those could be colonized by Pseudomonas aeruginosa as well, although I believe it is more likely that the right arm site is the source. Evidently, secondary colonization of the catheters may occur from the original site. It looks like he is going to require administration of daily cefepime for treatment of this Pseudomonas infection. Unless the organism is susceptible to quinolones in that case we would advise daily quinolone dosing instead of establishing an access for long-term IV antimicrobial therapy administration. If the organism is resistant to quinolones, then we would be forced to establish an access since administration during dialysis would not be an option for treatment of resistant Pseudomonas infections. The cefepime dose needs to be adjusted to 1 g daily and then additional 500 mg given after each dialysis. Job ID: [id number]
[2019-12-30] MEDS: Acetaminophen 325 MG TAB PO SCH ×6 (05:44→20:19)
--- NOTE | 2019-12-30 05:51 | PDOC.FM ---
- Subjective Subjective: Pt minimally responsive on exam. Will open eyes and state first name, but closes eyes and not able to cooperate with exam. Overnight pulled off his wound vac and pulled off the covering of his hemodialysis catheter. - Objective Vital Signs & Weight: Vital Signs (12 hours) Temp Pulse Resp BP Pulse Ox 12/30/19 03:54 97.7 F 88 20 135/75 97 12/29/19 19:49 96 12/29/19 19:16 74 18 96 12/29/19 18:53 97.7 F 87 16 126/67 96 Weight Admit Weight 57.9 kg Weight 56.6 kg I&O: 12/28/19 12/29/19 12/30/19 06:59 06:59 06:59 Intake Total 720 982 Output Total 720 400 Balance 0 582 Result Diagrams: 12/31/19 08:16 12/31/19 08:16 Phys Exam - Physical Examination somnolent HEENT: moist MMs, sclera anicteric pinpoint pupils Neck: supple left IJ central line Respiratory: no wheezing, clear to auscultation bilateral Cardiovascular: RRR, no significant murmur right chest HD catheter Gastrointestinal: non-tender, no distention Musculoskeletal: no edema, pulses present pain in RUE Neurological: non-focal, normal sensation, moves all 4 limbs does not cooperate with most of neuro testing Deviation from normal: AO x 1 Skin: no rash, cap refill <2 seconds Dx/Plan - Plan Plan: 64/M with PMH newly diagnosed ESRD status post AV fistula placement presents for infected wound. #Sepsis 2/2 pseudomonas bacteremia -sepsis POA -abx: cefepime -Consult wound care -Consult Dr. Mcnair, surgery: no surgery, wound care w/ wound vac -Consult Dr. Werner, ID: continue cefepime pending sensitivities and possible switch to fluoroquinolone #Encephalopathy -possibly due to medications. Held opioids and gabapentin. Gave narcan 0.4mg, had minimal improvement -ordered CBC, CMP, ABG, UDS, blood glucose -scheduled for dialysis today, if continued encephalopathy after, will order brain CT #Hyponatremia -Na 129 -Likely hypotonic hyponatremia, secondary to ESRD -will monitor #ESRD -Newly diagnosed, hemodialysis catheter right upper chest -HD on //SUN -Consult nephrology -consult CM - outpatient dialysis bed #DM2 -Mild SSI -accucheck ACHS #HTN -Continue home meds -Continue to monitor #CHF -Continue home meds #COPD -Continue home meds #Tobacco abuse -Half pack per day smoker -encourage cessation DVT Ppx: Heparin Code: Full code. PCP- MARIE Carrington Diet: Renal, high protein Dispo: Admit to telemetry floor, inpatient status. pending pseudomonas sensitivities, ID and gen surg recs. LOS > 48hrs. Addendum - Attending - Attending Attestation Date/Time: 12/30/19 8857 I personally evaluated the patient and discussed the management with Dr. Lindo. I agree with the History, Examination, Assessment and Plan documented above with any addition or exceptions noted below. Patient with altered mentation this morning. He received 3 doses of morphine yesterday without issue. This morning, pupils are constricted but reactive. He will respond to command after a few attempts. ABG shows no respiratory issues. During my first evaluation, he was able to respond to command and answer questions appropriately but this has been waxing and waning. He is s/p Narcan with mild improvement. Will administer another dose though I do not have high suspicion that this is cause of his encephalopathy. He will be undergoing urgent HD this morning. Continue to monitor mental status closely, though there is currently no evidence for respiratory distress, hemodynamic compromise, and he is able to protect his airway. We are also obtained UDS given the patient's history of substance abuse and the fact that he had visitors to his room last night.
[2019-12-30] MEDS: HumaLOG 300 UNITS/3 ML VIAL SC PRN (07:04)
[2019-12-30 07:38] LABS: Actual Bicarbonate (HCO3a) 23.9 mEq/L (22-28); Base Excess (BEa) -0.5 mEq/L (-2.0 to +3.0); CO2 Tension 38.2 mmHg (35.0-45.0); Calcium, Ionized (arterial) 1.12 mmol/L (1.12-1.30); Carboxyhemoglobin (COHb) 0.3 gm% (0.0-3.0); O2 Tension (PaO2), arterial 86.8 mmHg (> 80.0); Potassium - ABG Lab 3.51 mmol/L (3.70-5.30); pH, Arterial 7.41 (7.35-7.45)
[2019-12-30 07:52] LABS: #Eosinphils 0.3 thou/uL (0.0-0.7); #Lymphocytes 1.3 thou/uL (1.20-3.40); #Monocytes 1.1 thou/uL (0.11-0.59); #Neutrophils 5.5 thou/uL (1.40-6.50); %Basophils 0.2 % (0.0-1.0); %Lymphocytes 15.3 % (21.0-51.0); %Monocytes 13.8 % (0.0-10.0); %Neutrophils 66.7 % (42.0-75.0); Hemoglobin 10.8 g/dL (14.0-18.0); Mean Corpuscular HGB CONC 31.5 g/dL (32.0-36.0); Mean Corpuscular Hemoglobin 29.6 pg (27.0-31.0); Mean Platelet Volume 10.1 fL (7.4-10.4); Platelet Count 165 thou/uL (130-400); RBC Distribution Width 14.4 % (11.5-14.5); Red Blood Cell (RBC) Count 3.63 mill/uL (4.70-6.10); White Blood Cell (WBC) Count 8.2 thou/uL (4.8-10.8)
[2019-12-30] MEDS: Pregabalin 50 MG CAP PO SCH (07:55)
[2019-12-30] MEDS ORDERED: Naloxone HCl 0.4 mg/ml Vial IV SCH ×2 (08:00→10:15)
[2019-12-30 08:09] LABS: ALT (SGPT) 10 U/L (8-55); AST (SGOT) 17 U/L (5-34); Albumin 2.7 g/dL (3.4-4.8); Alkaline Phosphatase 81 U/L (40-110); Anion Gap 14 mmol/L (10-20); BUN (Urea Nitrogen) 36 mg/dL (8.4-25.7); Bilirubin, Total 0.4 mg/dL (0.2-1.2); Calc. Creatinine Clearance 14 mL/min (70-130); Calcium 8.1 mg/dL (7.8-10.44); Carbon Dioxide 27 mmol/L (23-31); Chloride 97 mmol/L (98-107); Estimated GFR-MDRD 15; Globulin 3.2 g/dL (2.4-3.5); Glucose 192 mg/dL (80-115); Potassium 3.5 mmol/L (3.5-5.1); Protein, Total 5.9 g/dL (5.8-8.1); Sodium 134 mmol/L (136-145)
[2019-12-30 08:17] LABS: Amphetamine Not Detected (NotDetected); Barbiturates Screen Not Detected (NotDetected); Benzodiazepine Screen Not Detected (NotDetected); Cocaine Metabolite Screen Not Detected (NotDetected); Medtox Control Line Valid? VALID (VALID); Medtox Reader # READER 4; Methadone Not Detected (NotDetected); Methamphetamine Not Detected (NotDetected); Opiate Screen Detected (NotDetected); Oxycodone Screen Not Detected (NotDetected); Phencyclidine (PCP) Not Detected (NotDetected); THC/Cannabinoid Screen Detected (NotDetected); Tricyclic Screen Detected (NotDetected)
[2019-12-30] MEDS: Mometasone 200 MCG/Formoterol 5 MCG 120 PUFF INHALER INH SCH ×2 (08:24→18:34)
[2019-12-30 08:26] LABS: Puncture Site RRA
[2019-12-30] MEDS: Heparin 5,000 UNITS/ML VIAL SC SCH ×2 (09:25→19:24)
[2019-12-30] MEDS: Ferrous Sulfate 325 MG TAB PO SCH (09:32)
[2019-12-30] MEDS: Carvedilol 3.125 MG TAB PO SCH ×3 (09:32→20:19)
[2019-12-30] MEDS: Furosemide 40 MG TAB PO SCH (09:32)
[2019-12-30] MEDS: Nicotine 21 MG PATCH TD SCH (09:32)
[2019-12-30] MEDS ORDERED: Heparin 10,000 UNITS/ 10 ML VIAL ONE (09:35)
[2019-12-30] MEDS ORDERED: Naloxone HCl 1 MG in Sodium Chloride 0.9% 500 ML IV SCH (11:00)
--- NOTE | 2019-12-30 12:14 | PRG ---
DATE OF SERVICE: 12/30/2019 SUBJECTIVE: Patient is seen and examined at the bedside. He is somnolent this morning. OBJECTIVE: GENERAL: This is a well-built male who is somnolent. VITAL SIGNS: Temperature 97.7, pulse 80, respiratory blood pressure 135/75. CHEST: Clear to auscultation. CVS: S1, S2 heard. MUSCULOSKELETAL: No edema. NEUROLOGIC: Somnolent. HEENT: Atraumatic, normocephalic. LABORATORY DATA: Potassium 3.5, BUN is 36, and creatinine is 4.8. ASSESSMENT AND PLAN: 1. End-stage renal disease. Continue dialysis TTS as tolerated. 2. Edema. Remove fluid. 3. History of hypertension, anemia of chronic disease. 4. Hypoalbuminemia. 5. Plan to have dialysis as tolerated. We will plan for dialysis. Job ID: [id number]
[2019-12-30] MEDS ORDERED: Naloxone HCl 0.4 mg/ml Vial IVP SCH (13:00)
--- NOTE | 2019-12-30 16:09 | CT ---
CT HEAD WITHOUT IV CONTRAST COMPARISON: 04/18/2019 HISTORY: Encephalopathy and altered mental status TECHNIQUE: Axial CT imaging at 5 mm intervals from vertex through skull base without contrast FINDINGS: There is decreased attenuation in the periventricular white matter which is nonspecific but likely re flective of chronic small vessel ischemic changes. Diminished attenuation is seen in the yg also likely related to chronic small vessel ischemic changes. There is mild cerebral volume loss. The ventricular system is normal in size, shape, and position for the degree of sulcal atrophy. There is no evidence of an acute infarction, hemorrhage, mass effect, or midline shift. Dense vascular calcifications are seen in the carotid siphons and distal vertebral arteries. Visualized paranasal sinuses are clear. Osseous structures appear intact. There multiple calcifications in the subcutaneous soft tissues stab le prior exam. IMPRESSION: 1. No acute intracranial abnormality demonstrated. 2. Chronic small vessel ischemic changes and cerebral volume loss.
[2019-12-30] MEDS: Amitriptyline HCl 25 MG TAB PO SCH ×2 (19:23→20:19)
[2019-12-30] MEDS: Rosuvastatin 20 MG TAB PO SCH ×2 (19:24→20:20)
[2019-12-30] MEDS ORDERED: Cefepime 1 GM in Sodium Chloride 0.9% 100 ML IVPB SCH (20:00)
[2019-12-31] MEDS ORDERED: Labetalol HCl 100 MG/20 ML VIAL SLOW IVP SCH (00:30)
[2019-12-31] MEDS: Acetaminophen 325 MG TAB PO SCH ×6 (01:39→20:46)
--- NOTE | 2019-12-31 06:29 | PDOC.FM ---
- Subjective Subjective: Pt is encephalopathic this morning. Pulled out his left IJ overnight. In soft restraints, has wound vac on. Open eyes to voice, answers some questions correctly. Does not report any pain. - Objective Vital Signs & Weight: Vital Signs (12 hours) Temp Pulse Resp BP BP Pulse Ox 12/31/19 04:00 111 H 18 167/77 H 95 12/31/19 00:45 105 H 12/30/19 19:00 97.1 F L 105 H 18 135/79 94 L Weight Admit Weight 57.9 kg Weight 60.01 kg I&O: 12/29/19 12/30/19 12/31/19 06:59 06:59 06:59 Intake Total 720 1462 100 Output Total 017 480 5842 Balance 0 1062 -2200 Result Diagrams: 12/31/19 08:16 12/31/19 08:16 Phys Exam - Physical Examination somnolent HEENT: moist MMs, sclera anicteric Neck: supple, full ROM left IJ Respiratory: no wheezing, clear to auscultation bilateral Cardiovascular: RRR, no significant murmur hemodialysis catheter on R chest Gastrointestinal: soft, non-tender, no distention Musculoskeletal: no edema Neurological: non-focal, moves all 4 limbs Deviation from normal: A&O x 0 Deviation from normal: RUE wrapped, wound vac in place. Dx/Plan - Plan Plan: 64/M with PMH newly diagnosed ESRD status post AV fistula placement presents for infected wound. #Sepsis 2/2 pseudomonas bacteremia -sepsis POA -pseudomonas sensitive to fluoroquinolones, will stop cefepime and start oral fluorquinolone pending mental status eval -Consult wound care -Consult Dr. Mcnair, surgery: no surgery, wound care w/ wound vac -Consult Dr. Werner, ID: can switch to fluoroquinolone #Encephalopathy -likely due to medications. Held opioids and lyrica -Gave 3 doses narcan yesterday with minimal improvement. No improvement after dialysis -Brain CT: no acute changes -continue to monitor mental status closely #Hyponatremia -resolved -will monitor #ESRD -Newly diagnosed, hemodialysis catheter right upper chest -HD on /SUN -Consult nephrology -consult CM - outpatient dialysis bed #DM2 -Mild SSI -accucheck ACHS #HTN -Continue home meds -Continue to monitor #CHF -Continue home meds #COPD -Continue home meds #Tobacco abuse -Half pack per day smoker -encourage cessation DVT Ppx: Heparin Code: Full code. PCP- MARIE Carrington Diet: Renal, high protein Dispo: Admit to telemetry floor, inpatient status. encephalopathy yesterday, will continue to monitor. LOS > 48hrs. Addendum - Attending - Attending Attestation Date/Time: 12/31/19 6503 I personally evaluated the patient and discussed the management with Dr. Lindo. I agree with the History, Examination, Assessment and Plan documented above with any addition or exceptions noted below.
[2019-12-31] MEDS: Mometasone 200 MCG/Formoterol 5 MCG 120 PUFF INHALER INH SCH ×2 (08:08→22:39)
[2019-12-31 08:24] LABS: #Basophils 0.1 thou/uL (0.0-0.2); #Eosinphils 0.3 thou/uL (0.0-0.7); #Lymphocytes 2.1 thou/uL (1.20-3.40); #Monocytes 1.1 thou/uL (0.11-0.59); #Neutrophils 6.8 thou/uL (1.40-6.50); %Basophils 0.5 % (0.0-1.0); %Eosinophils 3.1 % (0.0-10.0); %Lymphocytes 20.3 % (21.0-51.0); %Monocytes 10.6 % (0.0-10.0); %Neutrophils 65.5 % (42.0-75.0); Hemoglobin 11.1 g/dL (14.0-18.0); Mean Corpuscular Volume 93.5 fL (78.0-98.0); Mean Platelet Volume 9.2 fL (7.4-10.4); Platelet Count 211 thou/uL (130-400); RBC Distribution Width 14.4 % (11.5-14.5); Red Blood Cell (RBC) Count 3.71 mill/uL (4.70-6.10); White Blood Cell (WBC) Count 10.4 thou/uL (4.8-10.8)
[2019-12-31] MEDS: Carvedilol 3.125 MG TAB PO SCH ×2 (08:39→20:47)
[2019-12-31] MEDS: Ferrous Sulfate 325 MG TAB PO SCH (08:40)
[2019-12-31] MEDS: Furosemide 40 MG TAB PO SCH (08:40)
[2019-12-31] MEDS: Nicotine 21 MG PATCH TD SCH (08:45)
[2019-12-31 08:47] LABS: ALT (SGPT) 18 U/L (8-55); AST (SGOT) 31 U/L (5-34); Albumin 3.2 g/dL (3.4-4.8); Alkaline Phosphatase 114 U/L (40-110); Anion Gap 17 mmol/L (10-20); BUN (Urea Nitrogen) 23 mg/dL (8.4-25.7); Bilirubin, Total 0.5 mg/dL (0.2-1.2); Calc. Creatinine Clearance 18 mL/min (70-130); Calcium 8.8 mg/dL (7.8-10.44); Carbon Dioxide 22 mmol/L (23-31); Chloride 101 mmol/L (98-107); Estimated GFR-MDRD 21; Globulin 3.6 g/dL (2.4-3.5); Glucose 65 mg/dL (80-115); Protein, Total 6.8 g/dL (5.8-8.1); Sodium 136 mmol/L (136-145)
[2019-12-31] MEDS: Heparin 5,000 UNITS/ML VIAL SC SCH ×2 (08:49→20:46)
[2019-12-31] MEDS ORDERED: Acetaminophen 650 MG Suppository PR PRN (09:25)
--- NOTE | 2019-12-31 12:27 | PRG ---
DATE OF SERVICE: 12/31/2019 SUBJECTIVE: Patient was seen and examined at bedside and overnight events noted. Patient denies any shortness of breath or chest pain or palpitation. No history of nausea or vomiting or diarrhea or fever or chills or cramps. OBJECTIVE: General: This is a well-built male, in no apparent distress. Vital Signs: Temperature 96, pulse 99, respiratory rate 16, blood pressure 166/81. HEENT: Atraumatic, normocephalic. Oral mucosa is moist. Neck: Supple. Cardiovascular: S1, S2 heard. Rate and rhythm regular. Respiratory: Clear to auscultation. Gastrointestinal: Abdomen is soft. Musculoskeletal: No tenderness. No edema. Dermatologic: No skin rash. Neurologic: Alert and awake and oriented x3. No focal neurologic deficits. Moving all the extremities. Psychiatric: Mood and affect normal. LABORATORY DATA: Potassium 4.0, BUN is 23, creatinine is 3.7. ASSESSMENT AND PLAN: 1. End-stage renal disease. Continue dialysis. 2. Hypertension. 3. Edema. 4. Hypoalbuminemia. 5. Altered mentation, better. 6. Continue dialysis as tolerated, Sunday, , Sunday. Job ID: [id number]
[2019-12-31] MEDS: Amitriptyline HCl 25 MG TAB PO SCH (20:47)
[2019-12-31] MEDS: Rosuvastatin 20 MG TAB PO SCH (20:47)
[2020-01-01] MEDS: Acetaminophen 325 MG TAB PO SCH ×6 (00:45→21:15)
--- NOTE | 2020-01-01 06:17 | PDOC.FM ---
- Subjective Subjective: Pt awake, alert and in a poor mood this morning. States he doesn't want "people messing with me". States he has no pain. He was not cooperative with most of my exam. - Objective Vital Signs & Weight: Vital Signs (12 hours) Temp Pulse Resp BP BP Pulse Ox 01/01/20 04:00 97.1 F L 84 16 135/67 100 01/01/20 00:00 82 16 145/70 H 12/31/19 20:00 99 12/31/19 19:55 97.8 F 88 20 139/72 100 Weight Admit Weight 57.9 kg Weight 58.74 kg I&O: 12/30/19 12/31/19 01/01/20 06:59 06:59 06:59 Intake Total 1462 100 240 Output Total 400 2300 250 Balance 1062 -2200 -10 Result Diagrams: 12/31/19 08:16 12/31/19 08:16 Phys Exam - Physical Examination Constitutional: NAD HEENT: moist MMs, sclera anicteric Neck: supple, full ROM Respiratory: no wheezing, clear to auscultation bilateral Cardiovascular: RRR, no significant murmur Gastrointestinal: soft, non-tender, no distention Musculoskeletal: no edema, pulses present b/l AKA Neurological: non-focal, moves all 4 limbs Psychiatric: normal affect, A&O x 3 Skin: no rash, cap refill <2 seconds Deviation from normal: wound vac and bandage on RUE Dx/Plan - Plan Plan: 64/M with PMH newly diagnosed ESRD status post AV fistula placement presents for infected wound. #Sepsis 2/2 pseudomonas bacteremia -sepsis POA -pseudomonas sensitive to levaquin-started on 12/30. Will renally dose -Consult wound care -Consult Dr. Mcnair, surgery: no surgery, wound care w/ wound vac -Consult Dr. eWrner, ID: appreciate recs #Encephalopathy -Improved. likely due to medications. Held opioids and lyrica -Brain CT: no acute changes -continue to monitor mental status closely #Hyponatremia -resolved -will monitor #ESRD -Newly diagnosed, hemodialysis catheter right upper chest -HD on //SUN -Consult nephrology -consult CM - outpatient dialysis bed #DM2 -Mild SSI -accucheck ACHS #HTN -Continue home meds -Continue to monitor #CHF -Continue home meds #COPD -Continue home meds #Tobacco abuse -Half pack per day smoker -encourage cessation DVT Ppx: Heparin Code: Full code. PCP- MARIE Carrington Diet: Renal, high protein Dispo: Admit to telemetry floor, inpatient status. encephalopathy improving, will continue to monitor. LOS > 48hrs. Addendum - Attending - Attending Attestation Date/Time: 01/01/20 2779 I personally evaluated the patient and discussed the management with Dr. Lindo. I agree with the History, Examination, Assessment and Plan documented above with any addition or exceptions noted below.
[2020-01-01] MEDS: Mometasone 200 MCG/Formoterol 5 MCG 120 PUFF INHALER INH SCH ×2 (07:26→19:45)
[2020-01-01] MEDS ORDERED: Nicotine 21 MG PATCH TD PRN (09:09)
[2020-01-01] MEDS ORDERED: Heparin 10,000 UNITS/ 10 ML VIAL ONE (09:55)
--- NOTE | 2020-01-01 10:21 | PRG ---
DATE OF SERVICE: 01/01/2020 Prudencio Calderon is still confused. I have seen him in dialysis this morning. He was difficult to awake. Once he was awake and however, he could move his right hand. He was confused about what was going on, asking about when the helicopter was going to be here. His right arm wound VAC is removed and wound inspected. There is some slough. Wound Care will place the wound VAC. We would recommend treating this with a wound VAC to try to salvage the graft. The patient has a dialysis graft with a good bruit right upper arm. He developed an ischemic hand, he has an innominate artery stenosis with some gradient. He does have some weakness in his right hand, intermittent cool hand and some discomfort, but this will should improve with the time. The exposed graft is the bypass graft from the distal revascularization, and PTFE was used because he did not have a vein available being a bilateral [id number] amputee. Surgical ligation of his dialysis graft right arm and removal of this graft is problematic and difficult, and I would rather attempt salvage with a wound VAC and intravenous antibiotics. The patient did have Pseudomonas grow out of the right arm wound swab, although there was no abscess. The wound was swabbed and there was Pseudomonas. He did have a central line. Two blood cultures grow Pseudomonas. Being a dialysis patient, the patient could be treated with aminoglycoside given during each dialysis and be given a sliding scale vancomycin receiving approximately once every week. This could be overseen by the slot machine repairer at the dialysis center. The patient's slot machine repairer is Dr. Diaz. Dr. Werner is seeing the patient. At this point, the wound looks stable. I would recommend arrangement for outpatient wound VAC, outpatient intravenous antibiotics that could be administered during dialysis. I would recommend he follow up with me in about 2 to 3 weeks. At this point, I will see him as needed this hospitalization and the patient is stable to be discharged home with outpatient wound VAC arrangements and intravenous antibiotics outpatient per Dr. Werner. Job ID: [id number]
[2020-01-01] MEDS: Nicotine 21 MG PATCH TD SCH (10:52)
[2020-01-01] MEDS: Ferrous Sulfate 325 MG TAB PO SCH (12:46)
[2020-01-01] MEDS: Carvedilol 3.125 MG TAB PO SCH ×2 (12:47→21:15)
[2020-01-01] MEDS: Heparin 5,000 UNITS/ML VIAL SC SCH ×2 (12:49→21:15)
[2020-01-01] MEDS: Furosemide 40 MG TAB PO SCH (12:50)
[2020-01-01] MEDS: Rosuvastatin 20 MG TAB PO SCH (21:15)
[2020-01-01] MEDS: Amitriptyline HCl 25 MG TAB PO SCH (21:15)
[2020-01-02] MEDS: Acetaminophen 325 MG TAB PO SCH ×7 (00:44→23:42)
[2020-01-02 04:50] LABS: Anion Gap 15 mmol/L (10-20); BUN (Urea Nitrogen) 20 mg/dL (8.4-25.7); Calc. Creatinine Clearance 17 mL/min (70-130); Carbon Dioxide 23 mmol/L (23-31); Chloride 98 mmol/L (98-107); Estimated GFR-MDRD 20; Glucose 91 mg/dL (80-115); Sodium 132 mmol/L (136-145)
--- NOTE | 2020-01-02 05:21 | PRG ---
DATE OF SERVICE: 01/01/2020 SUBJECTIVE: Patient was seen and examined at bedside and overnight events noted. Patient denies any shortness of breath or chest pain or palpitation. No history of nausea or vomiting or diarrhea or fever or chills or cramps. OBJECTIVE: General: This is a well-built male, in no acute distress. Vital Signs: Temperature 97.5. Heart Rate 77. Respiratory rate 16. Blood pressure 135/70. HEENT: Atraumatic, normocephalic. Oral mucosa is moist. Neck: Supple. Cardiovascular: S1, S2 heard. Rate and rhythm regular. Respiratory: Clear to auscultation. Gastrointestinal: Abdomen is soft. Musculoskeletal: No tenderness. No edema. Dermatologic: No skin rash. Neurologic: Confused. Psychiatric: Mood and affect normal. LABORATORY DATA: Not done today. ASSESSMENT AND PLAN: 1. End-stage renal disease. Continue dialysis. 2. Hypertension. 3. Anemia. 4. Edema, controlled. 5. Altered mentation. We will have dialysis . Patient seen during dialysis, tolerating well. Remains confused. Antibiotics per ID. Job ID: [id number]
--- NOTE | 2020-01-02 06:03 | PDOC.FM ---
- Subjective Subjective: Pt resting comfortably this morning. Much more cooperative today. No events overnight - Objective Vital Signs & Weight: Vital Signs (12 hours) Temp Pulse Resp BP BP Pulse Ox 01/02/20 04:00 97.9 F 82 18 134/72 01/02/20 00:00 88 18 147/88 H 01/01/20 20:00 98.5 F 92 18 134/69 98 01/01/20 19:39 99 Weight Admit Weight 57.9 kg Weight 57.516 kg I&O: 12/31/19 01/01/20 01/02/20 06:59 06:59 06:59 Intake Total 100 440 360 Output Total 2300 250 Balance -2200 190 360 Result Diagrams: 12/31/19 08:16 01/02/20 04:09 Phys Exam - Physical Examination Constitutional: NAD HEENT: moist MMs, sclera anicteric Neck: supple, full ROM Respiratory: no wheezing, clear to auscultation bilateral Cardiovascular: RRR, no significant murmur Gastrointestinal: soft, non-tender, no distention Musculoskeletal: no edema, pulses present b/l AKA Neurological: non-focal, moves all 4 limbs Psychiatric: normal affect, A&O x 3 Skin: no rash, cap refill <2 seconds Deviation from normal: RUE bandaged with wound vac in place Dx/Plan - Plan Plan: 64/M with PMH newly diagnosed ESRD status post AV fistula placement presents for infected wound. #Sepsis 2/2 pseudomonas bacteremia -sepsis POA -pseudomonas sensitive to levaquin-started on 12/30. Will renally dose -Consult wound care -Consult Dr. Mcnair, surgery: will need outpatient wound vac, f/u as outpatient in 2-3 weeks -Consult Dr. Werner, ID: levaquin po renal dosing appropriate -CM: approved for outpatient dialysis bed, pending approval of wound vac, possible placement -PT: recommend SNF on 12/29 -discharge pending mental status, PT recs and CM #Encephalopathy -Improved. likely due to medications. Held opioids and lyrica -Brain CT: no acute changes -continue to monitor mental status closely #Hyponatremia -resolved -will monitor #ESRD -Newly diagnosed, hemodialysis catheter right upper chest -HD on /SUN -Consult nephrology -consult CM - outpatient dialysis bed #DM2 -Mild SSI -accucheck ACHS #HTN -Continue home meds -Continue to monitor #CHF -Continue home meds #COPD -Continue home meds #Tobacco abuse -Half pack per day smoker -encourage cessation DVT Ppx: Heparin Code: Full code. PCP- MARIE Carrington Diet: Renal, high protein Dispo: Admit to telemetry floor, inpatient status. encephalopathy improving, will continue to monitor. LOS > 48hrs. Addendum - Attending - Attending Attestation Date/Time: 01/02/20 1231 I personally evaluated the patient and discussed the management with Dr. Lindo. I agree with the History, Examination, Assessment and Plan documented above with any addition or exceptions noted below. Mentation improved. Continue current abx regimen per ID, as well as wound care. Will seek out potential for SNU given his increased demand for care and high risk for complications if he were to return directly home.
[2020-01-02] MEDS: Mometasone 200 MCG/Formoterol 5 MCG 120 PUFF INHALER INH SCH ×2 (07:23→20:19)
[2020-01-02] MEDS: Heparin 5,000 UNITS/ML VIAL SC SCH ×2 (08:59→20:51)
[2020-01-02] MEDS: Ferrous Sulfate 325 MG TAB PO SCH (08:59)
[2020-01-02] MEDS: Carvedilol 3.125 MG TAB PO SCH ×2 (08:59→20:51)
[2020-01-02] MEDS: Furosemide 40 MG TAB PO SCH (10:17)
--- NOTE | 2020-01-02 10:30 | PRG ---
DATE OF SERVICE: 01/02/2020 SUBJECTIVE: Patient was seen and examined at bedside and overnight events noted. Patient denies any shortness of breath or chest pain or palpitation. No history of nausea or vomiting or diarrhea or fever or chills or cramps. OBJECTIVE: GENERAL: This is a well-built male, in no apparent distress. VITAL SIGNS: Temperature 97.9. Heart rate 82. Respiratory rate 18. Blood pressure 134/72. HEENT: Atraumatic, normocephalic. Oral mucosa is moist. NECK: Supple. CARDIOVASCULAR: S1, S2 heard. Rate and rhythm regular. RESPIRATORY: Clear to auscultation. GASTROINTESTINAL: Abdomen is soft. MUSCULOSKELETAL: No tenderness. No edema. DERMATOLOGIC: No skin rash. NEUROLOGIC: Alert and awake and oriented x3. No focal neurologic deficits. Moving all the extremities. PSYCHIATRIC: Mood and affect normal. LABORATORY DATA: Potassium 4.0, BUN is 20, and creatinine is 3.6. ASSESSMENT AND PLAN: 1. End-stage renal disease. Continue dialysis. 2. Edema. 3. Hypertension. 4. Anemia of chronic disease. Plan to continue dialysis as tolerated. Job ID: [id number]
[2020-01-02] MEDS: Rosuvastatin 20 MG TAB PO SCH (20:51)
[2020-01-02] MEDS: Amitriptyline HCl 25 MG TAB PO SCH (20:51)
[2020-01-03] MEDS: Acetaminophen 325 MG TAB PO SCH ×6 (05:11→23:21)
--- NOTE | 2020-01-03 05:40 | PDOC.FM ---
- Subjective Subjective: Pt resting comfortably. Says he is having pain in his right hand, has been present since his AV fistula surgery. No N/V, CP, SOB. - Objective Vital Signs & Weight: Vital Signs (12 hours) Temp Pulse Resp BP BP Pulse Ox 01/03/20 04:00 97.5 F L 81 14 139/63 94 L 01/03/20 00:01 84 137/67 01/02/20 23:24 84 128/59 L 01/02/20 20:19 97 01/02/20 20:00 99 01/02/20 19:44 97.9 F 91 18 134/62 99 Weight Admit Weight 57.9 kg Weight 58.967 kg I&O: 01/01/20 01/02/20 01/03/20 06:59 06:59 06:59 Intake Total 440 360 800 Output Total 250 Balance 190 360 800 Result Diagrams: 12/31/19 08:16 01/02/20 04:09 Phys Exam - Physical Examination Constitutional: NAD HEENT: moist MMs, sclera anicteric Neck: supple, full ROM Respiratory: no wheezing, clear to auscultation bilateral Cardiovascular: RRR, no significant murmur Gastrointestinal: soft, non-tender, no distention Musculoskeletal: no edema, pulses present b/l AKA Neurological: non-focal, moves all 4 limbs Psychiatric: normal affect, A&O x 3 Skin: no rash, cap refill <2 seconds Deviation from normal: RUE wrapped, wound vac in place Dx/Plan - Plan Plan: 64/M with PMH newly diagnosed ESRD status post AV fistula placement presents for infected wound. #Sepsis 2/2 pseudomonas bacteremia -sepsis POA -abx: levaquin -Consult wound care -Consult Dr. Mcnair, surgery: will need outpatient wound vac, f/u as outpatient in 2-3 weeks -Consult Dr. Werner, ID: levaquin po, continue until February 07, weekly CBC, CMP, CRP. Repeat BCx at 3, 6 and 8 weeks -CM: pending placement, recommend SNF due to need for dialysis, wound vac and exterminator helper termite antibiotics -PT: recommend SNF -discharge pending placement #Encephalopathy -Improved. likely due to medications. Held opioids and lyrica -Brain CT: no acute changes -continue to monitor mental status closely #Hyponatremia -resolved -will monitor #ESRD -Newly diagnosed, hemodialysis catheter right upper chest -HD on //SUN -Consult nephrology -consult CM - outpatient dialysis bed #DM2 -Mild SSI -accucheck ACHS #HTN -Continue home meds -Continue to monitor #CHF -Continue home meds #COPD -Continue home meds #Tobacco abuse -Half pack per day smoker -encourage cessation DVT Ppx: Heparin Code: Full code. RYAN Carrington Diet: Renal, high protein Dispo: Admit to telemetry floor, inpatient status. Pending placement, will continue to monitor. LOS > 48hrs. Addendum - Attending - Attending Attestation Date/Time: 01/03/20 3962 I personally evaluated the patient and discussed the management with Dr. Lindo. I agree with the History, Examination, Assessment and Plan documented above with any addition or exceptions noted below. Patient denies concerns. Continue treating his pseudomonas infection as well as arrange his outpatient care.
[2020-01-03] MEDS: Mometasone 200 MCG/Formoterol 5 MCG 120 PUFF INHALER INH SCH ×2 (07:43→18:48)
[2020-01-03] MEDS: Carvedilol 3.125 MG TAB PO SCH ×2 (09:43→21:38)
[2020-01-03] MEDS: Heparin 5,000 UNITS/ML VIAL SC SCH ×2 (09:43→23:15)
[2020-01-03] MEDS: Pregabalin 75 MG CAP PO SCH (09:44)
[2020-01-03] MEDS ORDERED: Heparin 10,000 UNITS/ 10 ML VIAL ONE (13:57)
--- NOTE | 2020-01-03 17:50 | PDOC.NEPPN ---
- Subjective Encounter Date: 01/03/20 Subjective: Patient is seen in dialysis unit. He does not have new complaints. - Objective Vital Signs & Weight: Vital Signs (12 hours) Temp Pulse Resp BP Pulse Ox 01/03/20 17:39 97.6 F 91 16 120/62 95 01/03/20 11:52 97.0 F L 87 17 126/95 H 93 L 01/03/20 07:51 97.0 F L 77 19 134/66 93 L Weight Admit Weight 127 lb 10.362 oz Weight 130 lb I&O: 01/02/20 01/03/20 01/04/20 06:59 06:59 05:59 Intake Total 360 800 Balance 360 800 Result Diagrams: 12/31/19 08:16 01/02/20 04:09 Additional Labs: Accuchecks 01/03/20 01/03/20 01/03/20 15:59 11:55 06:14 POC Glucose 119 H 151 H 131 H 01/02/20 01/02/20 01/02/20 21:03 18:14 05:38 POC Glucose 197 H 132 H 80 01/01/20 01/01/20 17:02 10:40 POC Glucose 123 H 78 Nephrology ROS - Review of Systems Other: Review of systems Gen.: No fever, no chills All the 14 systems reviewed except for the ones mentioned above are negative - Medication Medications: Active Medications Generic Name Dose Route Start Last Admin Trade Name Freq PRN Reason Stop Dose Admin Acetaminophen 650 mg 12/28/19 17:00 01/03/20 12:03 Acetaminophen 325 Mg Tab PO Not Given Q4HR ALLEN Amitriptyline HCl 25 mg 12/28/19 21:00 01/02/20 20:51 Amitriptyline Hcl 25 Mg Tab PO 25 mg HS ALLEN Administration Carvedilol 6.25 mg 12/28/19 21:00 01/03/20 09:43 Carvedilol 3.125 Mg Tab PO 6.25 mg BID ALLEN Administration Diltiazem HCl 30 mg 12/28/19 12:00 01/03/20 12:02 Diltiazem Hcl 30 Mg Tablet PO 30 mg Q6HR ALLEN Administration Heparin Sodium (Porcine) 5,000 units 12/28/19 09:00 01/03/20 09:43 Heparin 5,000 Units/Ml Vial SC 5,000 units BID ALLEN Administration Insulin Human Lispro 0 units 12/28/19 00:22 12/30/19 07:04 Humalog 300 Units/3 Ml Vial SC 2 unit .MILD SLIDING SCALE PRN Administration Mild Correctional Scale Levofloxacin 500 mg 01/01/20 12:00 01/03/20 12:02 Levofloxacin 500 Mg Tab PO 500 mg Q2DAYS ALLEN Administration Mometasone Furoate/Formoterol Fumar 2 puff 12/28/19 18:30 01/03/20 07:43 Mometasone 200 Mcg/Formoterol 5 Mcg 120 Puff Inhaler INH 2 puff BID-RT ALLEN Administration Pregabalin 75 mg 01/03/20 09:00 01/03/20 09:44 Pregabalin 75 Mg Cap PO 75 mg DAILY ALLEN Administration Rosuvastatin Calcium 20 mg 12/28/19 21:00 01/02/20 20:51 Rosuvastatin 20 Mg Tab PO 20 mg HS ALLEN Administration - Exam General - other findings: Currently getting hemodialysis Eye: PERRL ENT: normocephalic atraumatic Neck: supple, no lymphadenopathy Neck - other findings: Right IJ TDC noted Respiratory: no wheezes Respiratory - other findings: air equal bilateral, no crackles Cardiovascular: RRR, no murmur, no rubs Gastrointestinal: soft, non-tender, non-distended, normal bowel sounds Extremities: no cyanosis Extremities - other findings: Bilateral above-knee amputation; right elbow in dressing Neurological: CN's grossly intact Neurological - other findings: Patient is awake, following commands PSYCH: normal affect, normal behavior, A&O x 3 Nephrology Results - Labs Result Diagrams: 12/31/19 08:16 01/02/20 04:09 Lab results: WBC 10.4 thou/uL (4.8-10.8) 12/31/19 08:16 Hgb 11.1 g/dL (14.0-18.0) L 12/31/19 08:16 Hct 34.7 % (42.0-52.0) L 12/31/19 08:16 MCV 93.5 fL (78.0-98.0) 12/31/19 08:16 Plt Count 211 thou/uL (130-400) 12/31/19 08:16 Neutrophils % 65.5 % (42.0-75.0) 12/31/19 08:16 ESR Westergren 35 mm/hr (Less than 20) H 12/28/19 03:35 ABG pH 7.41 (7.35-7.45) 12/30/19 07:21 ABG pCO2 38.2 mmHg (35.0-45.0) 12/30/19 07:21 ABG pO2 86.8 mmHg (> 80.0) H 12/30/19 07:21 Sodium 132 mmol/L (136-145) L 01/02/20 04:09 Potassium 4.0 mmol/L (3.5-5.1) 01/02/20 04:09 Chloride 98 mmol/L (98-107) 01/02/20 04:09 Carbon Dioxide 23 mmol/L (23-31) 01/02/20 04:09 BUN 20 mg/dL (8.4-25.7) 01/02/20 04:09 Creatinine 3.68 mg/dL (0.7-1.3) H 01/02/20 04:09 Glucose 91 mg/dL (80-115) 01/02/20 04:09 Lactic Acid 1.0 mmol/L (0.5-2.2) 12/27/19 21:03 Calcium 9.0 mg/dL (7.8-10.44) 01/02/20 04:09 Total Bilirubin 0.5 mg/dL (0.2-1.2) 12/31/19 08:16 AST 31 U/L (5-34) 12/31/19 08:16 ALT 18 U/L (8-55) 12/31/19 08:16 Alkaline Phosphatase 114 U/L (40-110) H 12/31/19 08:16 Ammonia 21 umol/L (18-72) 12/30/19 17:16 C-Reactive Protein 8.86 mg/dL (= or < 0.5) H 12/28/19 03:35 Serum Total Protein 6.8 g/dL (5.8-8.1) 12/31/19 08:16 Albumin 3.2 g/dL (3.4-4.8) L 12/31/19 08:16 Urine Ketones Negative mg/dL (Negative) 12/27/19 21:15 Urine Blood Negative (Negative) 12/27/19 21:15 Urine Nitrite Negative (Negative) 12/27/19 21:15 Ur Leukocyte Esterase Negative Zara/uL (Negative) 12/27/19 21:15 Urine RBC 0-3 HPF (0-3) 12/27/19 21:15 Urine WBC 0-3 HPF (0-3) 12/27/19 21:15 Ur Squamous Epith Cells 0-3 HPF (0-3) 12/27/19 21:15 Urine Bacteria None Seen HPF (None Seen) 12/27/19 21:15 Sodium 132 mmol/L (136-145) L 01/02/20 04:09 Potassium 4.0 mmol/L (3.5-5.1) 01/02/20 04:09 Chloride 98 mmol/L (98-107) 01/02/20 04:09 Carbon Dioxide 23 mmol/L (23-31) 01/02/20 04:09 Anion Gap 15 mmol/L (-20) 01/02/20 04:09 BUN 20 mg/dL (8.4-25.7) 01/02/20 04:09 Creatinine 3.68 mg/dL (0.7-1.3) H 01/02/20 04:09 Glucose 91 mg/dL (80-115) 01/02/20 04:09 Calcium 9.0 mg/dL (7.8-10.44) 01/02/20 04:09 Phosphorus 3.7 mg/dL (2.3-4.7) 12/29/19 03:41 Magnesium 2.1 mg/dL (1.6-2.6) 12/29/19 03:41 Albumin 3.2 g/dL (3.4-4.8) L 12/31/19 08:16 Nephrology AP PN - Plan Assessment and plan ESRD on hemodialysis Hypertension Anemia Diabetes mellitus Sepsis secondary to Pseudomonas bacteremia Continue with Sunday, and Sunday schedule. Ultrafiltration as tolerated. Patient is currently on Levaquin, dose for ESRD. Patient's blood pressure is stable, he is on Coreg. Monitor hemoglobin hematocrit and transfuse PRBC as needed. Discussed with dialysis nurse
[2020-01-03] MEDS: Rosuvastatin 20 MG TAB PO SCH (21:38)
[2020-01-03] MEDS: Amitriptyline HCl 25 MG TAB PO SCH (21:38)
[2020-01-04 04:45] LABS: #Basophils 0.1 thou/uL (0.0-0.2); #Eosinphils 0.2 thou/uL (0.0-0.7); #Lymphocytes 2.2 thou/uL (1.20-3.40); #Neutrophils 5.6 thou/uL (1.40-6.50); %Basophils 0.8 % (0.0-1.0); %Eosinophils 2.2 % (0.0-10.0); %Lymphocytes 24.4 % (21.0-51.0); %Monocytes 11.2 % (0.0-10.0); %Neutrophils 61.4 % (42.0-75.0); Hemoglobin 10.8 g/dL (14.0-18.0); Mean Corpuscular HGB CONC 31.8 g/dL (32.0-36.0); Mean Corpuscular Hemoglobin 29.8 pg (27.0-31.0); Mean Corpuscular Volume 93.5 fL (78.0-98.0); Mean Platelet Volume 8.9 fL (7.4-10.4); Platelet Count 287 thou/uL (130-400); RBC Distribution Width 15.1 % (11.5-14.5); Red Blood Cell (RBC) Count 3.64 mill/uL (4.70-6.10); White Blood Cell (WBC) Count 9.1 thou/uL (4.8-10.8)
[2020-01-04 05:16] LABS: ALT (SGPT) 16 U/L (8-55); AST (SGOT) 30 U/L (5-34); Albumin 3.2 g/dL (3.4-4.8); Alkaline Phosphatase 107 U/L (40-110); Anion Gap 15 mmol/L (10-20); BUN (Urea Nitrogen) 28 mg/dL (8.4-25.7); Bilirubin, Total 0.3 mg/dL (0.2-1.2); Calc. Creatinine Clearance 15 mL/min (70-130); Calcium 8.7 mg/dL (7.8-10.44); Carbon Dioxide 26 mmol/L (23-31); Chloride 97 mmol/L (98-107); Estimated GFR-MDRD 17; Globulin 3.6 g/dL (2.4-3.5); Glucose 122 mg/dL (80-115); Potassium 3.7 mmol/L (3.5-5.1); Protein, Total 6.8 g/dL (5.8-8.1); Sodium 134 mmol/L (136-145)
--- NOTE | 2020-01-04 05:45 | PDOC.FM ---
- Subjective Subjective: Pt resting comfortably this morning. Continues to complain of pain in right hand. Tolerating diet. - Objective Vital Signs & Weight: Vital Signs (12 hours) Temp Pulse Resp BP Pulse Ox 01/04/20 03:49 98.6 F 85 16 122/57 L 99 01/03/20 20:00 98 01/03/20 19:29 98.5 F 95 16 127/68 98 Weight Admit Weight 57.9 kg Weight 58.967 kg I&O: 01/02/20 01/03/20 01/04/20 06:59 06:59 05:59 Intake Total 360 800 360 Output Total 1925 Balance 360 800 -1565 Result Diagrams: 01/04/20 04:15 01/04/20 04:15 Phys Exam - Physical Examination Constitutional: NAD HEENT: moist MMs, sclera anicteric Neck: supple, full ROM Respiratory: no wheezing, clear to auscultation bilateral Cardiovascular: RRR, no significant murmur Gastrointestinal: soft, non-tender, no distention Musculoskeletal: no edema, pulses present b/l AKA Neurological: non-focal, moves all 4 limbs Psychiatric: normal affect, A&O x 3 Skin: no rash, cap refill <2 seconds Deviation from normal: RUE wrapped, wound vac in place Dx/Plan - Plan Plan: 4/M with H newly diagnosed ESRD status post AV fistula placement presents for infected wound. #Sepsis 2/2 pseudomonas bacteremia -sepsis POA -abx: levaquin -Consult Dr. Mcnair, surgery: will need outpatient wound vac, f/u as outpatient in 2-3 weeks -Consult Dr. Werner, ID: levaquin po, continue until February 07, weekly CBC, CMP, CRP. Repeat BCx at 3, 6 and 8 weeks -CM: pending placement, recommend SNF due to need for dialysis, wound vac and intermodal customer service antibiotics w/ labs -consult wound care, PT/OT -discharge pending placement #Encephalopathy -Improved. likely due to medications. -Brain CT: no acute changes -continue to monitor mental status closely #Hyponatremia -resolved -will monitor #ESRD -HD on //SUN -Consult nephrology -consult CM - outpatient dialysis bed #DM2 -Mild SSI -accucheck ACHS #HTN -Continue home meds -Continue to monitor #CHF -Continue home meds #COPD -Continue home meds #Tobacco abuse -Half pack per day smoker -encourage cessation DVT Ppx: Heparin Code: Full code. PCP- MARIE Carrington Diet: Renal, high protein Dispo: Admit to telemetry floor, inpatient status. Pending placement, will continue to monitor. LOS > 48hrs. Addendum - Attending - Attending Attestation Date/Time: 01/04/20 2450 I personally evaluated the patient and discussed the management with Dr. Lindo. I agree with the History, Examination, Assessment and Plan documented above with any addition or exceptions noted below. Continue intermodal customer service abx for Pseudomonas bacteremia and graft infection. Continue HD and wound care. Working on placement.
[2020-01-04] MEDS: Acetaminophen 325 MG TAB PO SCH ×2 (05:57→08:42)
[2020-01-04] MEDS: Mometasone 200 MCG/Formoterol 5 MCG 120 PUFF INHALER INH SCH ×2 (06:45→19:23)
[2020-01-04] MEDS: Carvedilol 3.125 MG TAB PO SCH ×2 (08:43→21:54)
[2020-01-04] MEDS: Pregabalin 75 MG CAP PO SCH (08:43)
[2020-01-04] MEDS: Heparin 5,000 UNITS/ML VIAL SC SCH ×2 (08:45→21:53)
[2020-01-04] MEDS: Acetaminophen 500 MG TAB PO SCH ×2 (12:15→17:12)
--- NOTE | 2020-01-04 14:22 | PDOC.NEPPN ---
- Subjective Encounter Date: 01/04/20 Subjective: Pt is seen and examined in the room. No acute overnight events. - Objective Vital Signs & Weight: Vital Signs (12 hours) Temp Pulse Resp BP Pulse Ox 01/04/20 11:57 97.9 F 85 12 134/67 97 01/04/20 08:37 85 15 146/68 H 100 01/04/20 08:00 98.1 F 98 01/04/20 03:49 98.6 F 85 16 122/57 L 99 Weight Admit Weight 127 lb 10.362 oz Weight 127 lb 6.835 oz I&O: 01/03/20 01/04/20 01/05/20 07:59 06:59 06:59 Intake Total Output Total Balance Result Diagrams: 01/04/20 04:15 01/04/20 04:15 Additional Labs: Accuchecks 01/04/20 01/04/20 01/03/20 10:50 05:54 20:17 POC Glucose 189 H 107 H 196 H 01/03/20 01/02/20 01/01/20 15:59 11:07 20:59 POC Glucose 119 H 114 H 108 H Nephrology ROS - Review of Systems Other: Review of systems Gen.: No fever, no chills All the 14 systems reviewed except for the ones mentioned above are negative - Medication Medications: Active Medications Generic Name Dose Route Start Last Admin Trade Name Freq PRN Reason Stop Dose Admin Acetaminophen 1,000 mg 01/04/20 12:00 01/04/20 12:15 Acetaminophen 500 Mg Tab PO 1,000 mg Q6HR ALLEN Administration Amitriptyline HCl 25 mg 12/28/19 21:00 01/03/20 21:38 Amitriptyline Hcl 25 Mg Tab PO 25 mg HS ALLEN Administration Carvedilol 6.25 mg 12/28/19 21:00 01/04/20 08:43 Carvedilol 3.125 Mg Tab PO 6.25 mg BID ALLEN Administration Diltiazem HCl 30 mg 12/28/19 12:00 01/04/20 12:16 Diltiazem Hcl 30 Mg Tablet PO 30 mg Q6HR ALLEN Administration Heparin Sodium (Porcine) 5,000 units 12/28/19 09:00 01/04/20 08:45 Heparin 5,000 Units/Ml Vial SC 5,000 units BID ALLEN Administration Insulin Human Lispro 0 units 10/25/20 00:22 12/30/19 07:04 Humalog 300 Units/3 Ml Vial SC 2 unit .MILD SLIDING SCALE PRN Administration Mild Correctional Scale Levofloxacin 500 mg 01/01/20 12:00 01/03/20 12:02 Levofloxacin 500 Mg Tab PO 500 mg Q2DAYS ALLEN Administration Mometasone Furoate/Formoterol Fumar 2 puff 12/28/19 18:30 01/04/20 06:45 Mometasone 200 Mcg/Formoterol 5 Mcg 120 Puff Inhaler INH 2 puff BID-RT ALLEN Administration Pregabalin 75 mg 01/03/20 09:00 01/04/20 08:43 Pregabalin 75 Mg Cap PO 75 mg DAILY ALLEN Administration Rosuvastatin Calcium 20 mg 12/28/19 21:00 01/03/20 21:38 Rosuvastatin 20 Mg Tab PO 20 mg HS ALLEN Administration - Exam General - other findings: Pt is not in pain or discomfort Eye: PERRL ENT: normocephalic atraumatic Neck: supple, no lymphadenopathy Respiratory - other findings: air entry equal bilateral, no crackles Cardiovascular: RRR, no murmur, no gallops Gastrointestinal: soft, non-tender, non-distended Extremities - other findings: B/L AKA,right elbow in dressing Skin: no rashes Neurological - other findings: Patient is sleeping but arousable, following commands PSYCH: normal affect, normal behavior, A&O x 3 Nephrology Results - Labs Result Diagrams: 01/04/20 04:15 01/04/20 04:15 Lab results: WBC 9.1 thou/uL (4.8-10.8) 01/04/20 04:15 Hgb 10.8 g/dL (14.0-18.0) L 01/04/20 04:15 Hct 34.1 % (42.0-52.0) L 01/04/20 04:15 MCV 93.5 fL (78.0-98.0) 01/04/20 04:15 Plt Count 287 thou/uL (130-400) 01/04/20 04:15 Neutrophils % 61.4 % (42.0-75.0) 01/04/20 04:15 ESR Westergren 35 mm/hr (Less than 20) H 12/28/19 03:35 ABG pH 7.41 (7.35-7.45) 12/30/19 07:21 ABG pCO2 38.2 mmHg (35.0-45.0) 12/30/19 07:21 ABG pO2 86.8 mmHg (> 80.0) H 12/30/19 07:21 Sodium 134 mmol/L (136-145) L 01/04/20 04:15 Potassium 3.7 mmol/L (3.5-5.1) 01/04/20 04:15 Chloride 97 mmol/L (98-107) L 01/04/20 04:15 Carbon Dioxide 26 mmol/L (23-31) 01/04/20 04:15 BUN 28 mg/dL (8.4-25.7) H 01/04/20 04:15 Creatinine 4.36 mg/dL (0.7-1.3) H 01/04/20 04:15 Glucose 122 mg/dL (80-115) H 01/04/20 04:15 Lactic Acid 1.0 mmol/L (0.5-2.2) 12/27/19 21:03 Calcium 8.7 mg/dL (7.8-10.44) 01/04/20 04:15 Total Bilirubin 0.3 mg/dL (0.2-1.2) 01/04/20 04:15 AST 30 U/L (5-34) 01/04/20 04:15 ALT 16 U/L (8-55) 01/04/20 04:15 Alkaline Phosphatase 107 U/L (40-110) 01/04/20 04:15 Ammonia 21 umol/L (18-72) 12/30/19 17:16 C-Reactive Protein 0.90 mg/dL (= or < 0.5) H 01/04/20 04:15 Serum Total Protein 6.8 g/dL (5.8-8.1) 01/04/20 04:15 Albumin 3.2 g/dL (3.4-4.8) L 01/04/20 04:15 Urine Ketones Negative mg/dL (Negative) 12/27/19 21:15 Urine Blood Negative (Negative) 12/27/19 21:15 Urine Nitrite Negative (Negative) 12/27/19 21:15 Ur Leukocyte Esterase Negative Zara/uL (Negative) 12/27/19 21:15 Urine RBC 0-3 HPF (0-3) 12/27/19 21:15 Urine WBC 0-3 HPF (0-3) 12/27/19 21:15 Ur Squamous Epith Cells 0-3 HPF (0-3) 12/27/19 21:15 Urine Bacteria None Seen HPF (None Seen) 12/27/19 21:15 Sodium 134 mmol/L (136-145) L 01/04/20 04:15 Potassium 3.7 mmol/L (3.5-5.1) 01/04/20 04:15 Chloride 97 mmol/L (98-107) L 01/04/20 04:15 Carbon Dioxide 26 mmol/L (23-31) 01/04/20 04:15 Anion Gap 15 mmol/L (-20) 01/04/20 04:15 BUN 28 mg/dL (8.4-25.7) H 01/04/20 04:15 Creatinine 4.36 mg/dL (0.7-1.3) H 01/04/20 04:15 Glucose 122 mg/dL (80-115) H 01/04/20 04:15 Calcium 8.7 mg/dL (7.8-10.44) 01/04/20 04:15 Phosphorus 3.7 mg/dL (2.3-4.7) 12/29/19 03:41 Magnesium 2.1 mg/dL (1.6-2.6) 12/29/19 03:41 Albumin 3.2 g/dL (3.4-4.8) L 01/04/20 04:15 Nephrology AP PN - Plan Assessment and plan ESRD on hemodialysis Hypertension Anemia Diabetes mellitus Sepsis secondary to Pseudomonas bacteremia Pt had HD yesterday. On Levaquin for bacteremia. BP stable, c/w coreg. Discussed with YIN
--- NOTE | 2020-01-04 20:45 | PDOC.BPN ---
- Brief Progress Note 64-year-old male with PMH newly diagnosed ESRD on HD //, CHF, COPD, DM 2, HLD, HTN, and b/l AKAs that presents to the ED after falling at home. Fell night before admission and noticed the next morning, his right upper extremity AV fistula had opened up. Had recently been hospitalized and on 12/15 AV fistula w/ PTFE graft placed by Dr. Mcnair. Sepsis criteria met on admission, started on broad spectrum abx: vanc and cefepime. BCx revealed pseudomonas bacteremia. Lines:tunneled hemodialysis catheter in right chest and Left IJ central line. Cefepime continued pending sensitivities. Dr. Mcnair consulted and decided to treat with wound vac. Wound care consulted. Dr. Werner, ID, consulted. After sensitivities resulted, he recommended levaquin po until Feb 07. Weekly CBC, CMP, CRP. Repeat BCx at 3, 6 and 8 weeks. Pt became encephalopathic 2/2 polypharmacy during stay including removing his left IJ central line. Had been treated with multiple pain medications including fentanyl, morphine and gabapentin since last hospital stay. Narcan given with minimal improvement. Brain CT showed no acute changes. Held opioids and gabapentin and mental status improved slowly after metabolization of medications. Pt stabilized medically and stable for discharge pending placement. CM consulted for outpatient dialysis bed, wound vac, and SNF placement. Patient will need watermelon inspector antibiotic treatment and continued PT/OT to prevent further falls.
[2020-01-04] MEDS: Rosuvastatin 20 MG TAB PO SCH (21:54)
[2020-01-04] MEDS: Fentanyl 100 MCG/2 ML VIAL SLOW IVP PRN (21:54)
[2020-01-04] MEDS: Amitriptyline HCl 25 MG TAB PO SCH (21:54)
[2020-01-05] MEDS: Acetaminophen 500 MG TAB PO SCH ×4 (00:59→16:55)
--- NOTE | 2020-01-05 06:20 | PDOC.FM ---
- Subjective Subjective: Patient doing well today. Patient says he wants to go home and his daughter will take care of him. He states his arm hurts, but not as bad as when he came in to the ED. She is coming this morning so she can learn how to use the wound vac. - Objective MAR Reviewed: Yes Vital Signs & Weight: Vital Signs (12 hours) Temp Pulse Resp BP Pulse Ox 01/05/20 04:00 97.6 F 90 16 152/80 H 99 01/04/20 19:40 97.6 F 90 18 128/59 L 99 01/04/20 19:23 96 Weight Admit Weight 57.9 kg Weight 60.146 kg I&O: 01/03/20 01/04/20 01/05/20 07:59 06:59 06:59 Intake Total 600 Output Total 0 Balance 600 Result Diagrams: 01/04/20 04:15 01/04/20 04:15 Phys Exam - Physical Examination Constitutional: NAD HEENT: moist MMs Neck: full ROM Respiratory: no wheezing, clear to auscultation bilateral Cardiovascular: RRR Gastrointestinal: soft, non-tender b/l AKA Psychiatric: normal affect, A&O x 3 Skin: normal turgor -: bandage covering right arm wound Dx/Plan - Plan Plan: #Sepsis 2/2 pseudomonas bacteremia -sepsis on admission, resolved -abx: levaquin -Consult Dr. Mcnair, surgery: will need outpatient wound vac, f/u as outpatient in 2-3 weeks -Consult Dr. Werner, ID: levaquin po, continue until February 07, weekly CBC, CMP, CRP. Repeat BCx at 3, 6 and 8 weeks -CM: pending placement, recommend SNF due to need for dialysis, wound vac and long-term antibiotics w/ labs but patient wants to go home with daughter as prim mamie animal care service worker and out patient wound care -consulted wound care, PT/OT -discharge pending placement #Encephalopathy -Improved. likely due to medications. -Brain CT: no acute changes -continue to monitor mental status closely #Hyponatremia -resolved -will monitor #ESRD -HD on //SUN -Consult nephrology -consult CM - outpatient dialysis bed #DM2 -Mild SSI -accucheck ACHS #HTN -Continue home meds -Continue to monitor #CHF -Continue home meds #COPD -Continue home meds #Tobacco abuse -Half pack per day smoker -encourage cessation DVT Ppx: Heparin Code: Full code. PCP- MARIE Carrington Diet: Renal, high protein Dispo: Admit to telemetry floor, inpatient status. Pending placement, will co ntinue to monitor. LOS > 48hrs. Addendum - Attending - Attending Attestation Date/Time: 01/05/201903 I personally evaluated the patient and discussed the management with Dr. Monterroso I agree with the History, Examination, Assessment and Plan documented above with any addition or exceptions noted below - Patient without complaints. Good appetite. Still some pain at dialysis site but overall improved. Afebrile VSS. A/P: 1) Sepsis secondary to Pseudomonas - improved; continue po levaquin. Will need extended treatment course. Appreciate recommendations from Dr. Werner. 2) ESRD on HD- continue HD. 3) DM- continue home meds and adjust as needed. 4) D/c planning- patient declines SNF placement. Discussed with patient and daughter and they request home health services with wound care. Will place case management order to start process.
[2020-01-05] MEDS: Mometasone 200 MCG/Formoterol 5 MCG 120 PUFF INHALER INH SCH ×2 (07:06→18:57)
[2020-01-05] MEDS: Carvedilol 3.125 MG TAB PO SCH ×2 (08:26→21:17)
[2020-01-05] MEDS: Heparin 5,000 UNITS/ML VIAL SC SCH ×2 (08:27→21:18)
[2020-01-05] MEDS: Pregabalin 75 MG CAP PO SCH (08:27)
[2020-01-05] MEDS: Fentanyl 100 MCG/2 ML VIAL SLOW IVP PRN ×2 (08:28→16:56)
[2020-01-05] MEDS: HumaLOG 300 UNITS/3 ML VIAL SC PRN ×2 (11:59→17:18)
[2020-01-05 14:12] VITALS: BMI 19.5
[2020-01-05] MEDS: Amitriptyline HCl 25 MG TAB PO SCH (21:18)
[2020-01-05] MEDS: Rosuvastatin 20 MG TAB PO SCH (21:18)
[2020-01-06] MEDS: Acetaminophen 500 MG TAB PO SCH ×5 (00:21→23:54)
[2020-01-06] MEDS: Fentanyl 100 MCG/2 ML VIAL SLOW IVP PRN ×3 (01:54→19:02)
--- NOTE | 2020-01-06 06:19 | PDOC.FM ---
- Subjective Subjective: Patient is doing well today. Has no complaints. Right arm pain is controlled. Tolerating PO. As per tele, had 18 beats of nonsustained Vtach, asymptomatic. - Objective MAR Reviewed: Yes Vital Signs & Weight: Vital Signs (12 hours) Temp Pulse Resp BP Pulse Ox 01/06/20 03:53 98.3 F 88 15 129/62 95 01/06/20 00:18 87 132/68 01/05/20 21:16 98.4 F 92 18 145/69 H 100 01/05/20 18:57 96 Weight Admit Weight 57.9 kg Weight 60.146 kg I&O: 01/04/20 01/05/20 01/06/20 06:59 06:59 06:59 Intake Total 850.5 981 Output Total 0 250 Balance 850.5 731 Result Diagrams: 01/06/20 08:55 01/06/20 08:55 Phys Exam - Physical Examination Constitutional: NAD HEENT: moist MMs Neck: full ROM Respiratory: no wheezing, clear to auscultation bilateral Cardiovascular: RRR Gastrointestinal: soft, non-tender b/l AKA, right arm wound wrapped Psychiatric: normal affect, A&O x 3 Dx/Plan - Plan Plan: #Sepsis 2/2 pseudomonas bacteremia -sepsis on admission, resolved -abx: levaquin q 2 days -Consult Dr. Mcnair, surgery: will need outpatient wound vac, f/u as outpatient in 2-3 weeks -Consult Dr. Werner, ID: levaquin po, continue until February 07, weekly CBC, CMP, CRP. Repeat BCx at 3, 6 and 8 weeks -CM: pending placement, recommend SNF due to need for dialysis, wound vac and fpc antibiotics w/ labs but patient wants to go home with daughter as primary eye care professional and out patient wound care, referral to [facility] sent pending prior auth -consulted wound care, PT/OT -discharge pending placement #Nonsustained VTach -talking with tele techs, looks like patient has had episodes with runs of nonsustained, asymptomatic Vtach since admission -will follow up with patient and see if he has a personal fitness manager he follows with and if this has been worked up outpatient -if not worked up outpatient, consider cardiology consult #Encephalopathy -Improved. likely due to medications. -Brain CT: no acute changes -continue to monitor mental status closely #Hyponatremia -resolved -will monitor #ESRD -HD on //SUN -Consult nephrology -consult CM - outpatient dialysis bed #DM2 -Mild SSI -accucheck ACHS -patient not on home meds, follow up A1C #HTN -Continue home meds -Continue to monitor #CHF -Continue home meds #COPD -Continue home meds #Tobacco abuse -Half pack per day smoker -encourage cessation DVT Ppx: Heparin Code: Full code. PCP- MARIE Carrington Diet: Renal, high protein Dispo: Admit to telemetry floor, inpatient status. Pending placement, will continue to monitor. LOS > 48hrs. Addendum - Attending - Attending Attestation Date/Time: 01/06/20 9555 I personally evaluated the patient and discussed the management with Dr. Monterroso I agree with the History, Examination, Assessment and Plan documented above with any addition or exceptions noted below - Patient without complaints. Afebrile VSS. A/P: 1) Sepsis secondary to pseudomonas - stable; continue levaquin. 2) ESSRD - continue HD, 3) Non-sustained V-tach - had episode with 18 beats today; asymptomatic. Review of telemetry show he has had some intermittent episodes since 12/28; will consult cardiology for further assistance. 4) D/c planning- unable to obtain home health services due to insurance. Arrangements for outpatient wound care clinic and will need home wound vac.
[2020-01-06] MEDS: Mometasone 200 MCG/Formoterol 5 MCG 120 PUFF INHALER INH SCH ×2 (07:16→19:57)
[2020-01-06 09:47] LABS: Hemoglobin 10.1 g/dL (14.0-18.0); Mean Corpuscular HGB CONC 32.1 g/dL (32.0-36.0); Mean Corpuscular Volume 93.5 fL (78.0-98.0); Mean Platelet Volume 9.3 fL (7.4-10.4); Platelet Count 326 thou/uL (130-400); RBC Distribution Width 15.3 % (11.5-14.5); Red Blood Cell (RBC) Count 3.36 mill/uL (4.70-6.10); White Blood Cell (WBC) Count 10.8 thou/uL (4.8-10.8)
[2020-01-06 10:00] LABS: Hemoglobin A1c 5.8 % (4.0-6.0)
[2020-01-06 10:06] LABS: Anion Gap 20 mmol/L (10-20); BUN (Urea Nitrogen) 64 mg/dL (8.4-25.7); Calc. Creatinine Clearance 8 mL/min (70-130); Calcium 8.5 mg/dL (7.8-10.44); Carbon Dioxide 23 mmol/L (23-31); Chloride 95 mmol/L (98-107); Eosinophils 1 % (0-10); Estimated GFR-MDRD 8; Glucose 130 mg/dL (80-115); Lymphocytes 18 % (21-51); MDiff Complete? YES; Monocytes 11 % (0-10); Neutrophil 70 % (42-75); Platelet Morphology Comment Appears Adequate; Potassium 4.1 mmol/L (3.5-5.1); RBC Morphology Normal; Sodium 134 mmol/L (136-145)
--- NOTE | 2020-01-06 11:45 | PRG ---
DATE OF SERVICE: 01/05/2020 SUBJECTIVE: A 64-year-old gentleman being seen for end-stage renal disease. The patient denied nausea, vomiting, chest pain. PHYSICAL EXAMINATION: General: The patient is awake and alert. Vital Signs: Afebrile, pulse 85, breathing at 16, blood pressure 127/61. HEENT: Head normocephalic and atraumatic. Eyes intact, no ulcers. Nose intact, no ulcers. Ears intact, no ulcers. Neck: Supple. No JVD. Chest: Symmetrical and clear. Cardiovascular: Shows S1 and S2, no rub, no murmur. Gastrointestinal: Abdomen is soft, bowel sounds positive. Extremities: Show no edema or ulcers. Skin: Shows no rash or petechiae. Musculoskeletal: Shows no joint swelling or stiffness. Genitourinary: Shows no Weinberg or CVA tenderness. Neurologic: Motor intact. Cranial nerves intact. LABORATORY DATA: Reviewed. ASSESSMENT AND PLAN: 1. Stage 6 chronic kidney disease. Plan dialysis. 2. Hypertension. 3. Anemia, stable. 4. Medication based on glomerular filtration rate appropriate. Job ID: [id number]
[2020-01-06] MEDS ORDERED: Heparin 10,000 UNITS/ 10 ML VIAL ONE (13:30)
[2020-01-06] MEDS: Carvedilol 3.125 MG TAB PO SCH ×2 (13:31→20:54)
[2020-01-06] MEDS: Pregabalin 75 MG CAP PO SCH (13:31)
[2020-01-06] MEDS: Heparin 5,000 UNITS/ML VIAL SC SCH ×2 (13:33→20:45)
--- NOTE | 2020-01-06 13:52 | PRG ---
DATE OF SERVICE: 01/06/2020 SUBJECTIVE: A 64-year-old gentleman being seen for end-stage renal disease. The patient denies any nausea, vomiting, or chest pain. PHYSICAL EXAMINATION: General: The patient is awake and alert. Vital Signs: Afebrile, pulse 75, breathing at 16, blood pressure 138/71. HEENT: Head normocephalic and atraumatic. Eyes intact, no ulcers. Nose intact, no ulcers. Ears intact, no ulcers. Neck: Supple. No JVD. Chest: Symmetrical and clear. Cardiovascular: Shows S1 and S2, no rub, no murmur. Gastrointestinal: Abdomen is soft, bowel sounds positive. Extremities: Show no edema or ulcers. Skin: Shows no rash or petechiae. Musculoskeletal: Shows no joint swelling or stiffness. Genitourinary: Shows no Weinberg or CVA tenderness. Neurologic: Motor intact. Cranial nerves intact. LABORATORY DATA: Labs show hemoglobin of 10.1. ASSESSMENT AND PLAN: 1. Stage 6 chronic kidney disease. Plan dialysis. 2. Hypertension, stable. 3. Anemia, stable. 4. Medication based on GFR appropriate. Job ID: [id number]
--- NOTE | 2020-01-06 15:08 | PRG ---
DATE OF SERVICE: 01/06/2020 Prudencio Calderon is doing well today. His right arm wound was inspected after his VAC was removed. The wound is granulating, it is healing. At this point, I would recommend continued antibiotics of Levaquin per Dr. Werner. He will have a wound VAC applied as an outpatient. I would plan to follow him up in my office in the next few weeks. Job ID: [id number]
[2020-01-06] MEDS: HumaLOG 300 UNITS/3 ML VIAL SC PRN (17:07)
[2020-01-06] MEDS: Rosuvastatin 20 MG TAB PO SCH (20:45)
[2020-01-06] MEDS: Amitriptyline HCl 25 MG TAB PO SCH (20:45)
--- NOTE | 2020-01-06 23:46 | EKG ---
Test Reason : Blood Pressure : / mmHG Vent. Rate : 091 BPM Atrial Rate : 091 BPM P-R Int : 224 ms QRS Dur : 100 ms QT Int : 390 ms P-R-T Axes : 112 046 101 degrees QTc Int : 479 ms Sinus rhythm with 1st degree A-V block with Premature supraventricular complexes Left ventricular hypertrophy with repolarization abnormality Abnormal ECG When compared with ECG of 27-DEC-2019 20:05, (Unconfirmed) Premature supraventricular complexes are now Present MD interval has increased RSR' pattern in V1 is no longer Present Nonspecific T wave abnormality no longer evident in Anterior leads Confirmed by Brad SANTANA ([id number]) on 01/06/2020 11:45:44 PM Referred By: LIGHT *r Confirmed By:Brad SANTANA
[2020-01-07] MEDS: Fentanyl 100 MCG/2 ML VIAL SLOW IVP PRN ×3 (03:35→20:46)
--- NOTE | 2020-01-07 06:16 | PDOC.FM ---
- Subjective Subjective: Pt is sitting up eating breakfast this morning. He was supposed to go for a stress test today, but there was miscommunication and he is doing the resting portion today and will do the rest of the stress test tomorrow. He has no complaints. Feeling good. Got dialysis yesterday. He says he wants to go live with his daughter in [place] so needs outpatient wound care in [place] and home health there. - Objective MAR Reviewed: Yes Vital Signs & Weight: Vital Signs (12 hours) Temp Pulse Resp BP Pulse Ox 01/07/20 03:14 98.4 F 93 18 135/70 98 01/06/20 20:00 97.8 F 86 16 103/59 L 99 01/06/20 19:57 98 Weight Admit Weight 57.9 kg Weight 60.146 kg I&O: 01/05/20 01/06/20 01/07/20 06:59 06:59 06:59 Intake Total 850.5 1461 1194 Output Total 0 250 0 Balance 850.5 1211 1194 Result Diagrams: 01/06/20 08:55 01/06/20 08:55 Phys Exam - Physical Examination Constitutional: NAD HEENT: moist MMs Neck: full ROM Respiratory: no wheezing, clear to auscultation bilateral Cardiovascular: RRR Gastrointestinal: soft, non-tender b/l AKA Psychiatric: A&O x 3 Skin: no rash, normal turgor Dx/Plan - Plan Plan: #Sepsis 2/2 pseudomonas bacteremia -sepsis on admission, resolved -abx: levaquin q 2 days -Consult Dr. Mcnair, surgery: will need outpatient wound vac, f/u as outpatient in 2-3 weeks -Consult Dr. Werner, ID: levaquin po, continue until February 07, weekly CBC, CMP, CRP. Repeat BCx at 3, 6 and 8 weeks -CM: patient wants to go home with daughter in [place] as primary health care consultant and out patient wound care. Will need wound vac on discharge. Patient has someone who comes every day to help him already -consulted wound care, PT/OT #Nonsustained VTach -talking with tele techs, looks like patient has had episodes with runs of nonsustained, asymptomatic Vtach since admission -patient follows with Dr. Morales -cardiology consulted, appreciate the recs -stress test pending #Encephalopathy -Improved. likely due to medications. -Brain CT: no acute changes -continue to monitor mental status closely #Hyponatremia -resolved -will monitor #ESRD -HD on /SUN -Consult nephrology -consult CM - outpatient dialysis bed #Pre diabetic -Mild SSI -accucheck ACHS -patient not on home meds -A1C 5.8 #HTN -Continue home meds -Continue to monitor #HFpEF -echo 12/22: EF 50-55% -Continue home meds #COPD -Continue home meds #Tobacco abuse -Half pack per day smoker -encourage cessation DVT Ppx: Heparin Code: Full code. PCP- MARIE Carrington Diet: Renal, high protein Dispo: Admit to telemetry floor, inpatient status. Pending placement, will continue to monitor. LOS > 48hrs.
[2020-01-07] MEDS: Acetaminophen 500 MG TAB PO SCH ×4 (06:44→23:40)
[2020-01-07] MEDS: Mometasone 200 MCG/Formoterol 5 MCG 120 PUFF INHALER INH SCH ×2 (07:34→19:33)
[2020-01-07] MEDS: Carvedilol 3.125 MG TAB PO SCH ×2 (08:11→20:51)
[2020-01-07] MEDS: Pregabalin 75 MG CAP PO SCH (08:11)
[2020-01-07] MEDS: Heparin 5,000 UNITS/ML VIAL SC SCH ×2 (08:13→20:51)
--- NOTE | 2020-01-07 08:42 | CON ---
DATE OF CONSULTATION: 01/06/2020 ADDENDUM: INDICATION FOR CONSULTATION: A 64-year-old gentleman, with episodes of nonsustained ventricular tachycardia. HISTORY OF PRESENT ILLNESS: This very unfortunate 64-year-old gentleman, with multiple medical problems, has been seen by Dr. Morales in the past. He has had bypass surgery. He has had angioplasty and stent placed. He has end-stage renal disease, on hemodialysis. He recently underwent a graft placement of AV fistula to his arm, which became infected. He then presented back to the hospital. He has been on wound care for the infected arm. He also has significant peripheral vascular disease and had bilateral AKAs in the past. He has also had arrhythmias with ablation of atrial flutter. At this time, we were asked to see him due to nonsustained ventricular tachycardia, which has been ongoing essentially ever since he was admitted again to the hospital. He did have one episode of about 20 to 25 beats of nonsustained ventricular tachycardia. He has been asymptomatic. We were asked to see him due to the nonsustained ventricular tachycardia. I do not have any mention of this in the past histories. At this time, he appears to be very stable. He had the episodes that did not appear that his electrolytes were significantly abnormal at the time of the events, but obviously will need to be further evaluated. I have seen this patient with the resident. We have discussed it in detail and I would agree with the assessment and plan. We have gone over the assessment and plan with the patient, but the indication for the consultation was his nonsustained ventricular tachycardia, which would in my opinion he will need to undergo repeat stress testing. He did have a stress test about a year and a half ago, which was relatively unremarkable, but we will need to repeat the stress test to rule out evidence of underlying ischemia or progression of coronary artery disease as an etiology of the nonsustained ventricular tachycardia. We will need to monitor very carefully the electrolytes to assure that this is also not the etiology of his nonsustained ventricular tachycardia. If the stress test is negative, then would suggest that he be seen by the computer lab assistant for possible medical management of the nonsustained ventricular tachycardia or possible ablation. He has had a myocardial infarction in the past and may have nonsustained ventricular tachycardia due to the irritation around the scar. He may need eventually to be switched to other medications, such as amiodarone for control of the nonsustained ventricular tachycardia. He has had echocardiograms recently which did not show severe decrease in left ventricular systolic function. I believe a repeat echocardiogram was ordered. If not, we will request the echocardiogram to determine whether or not the left ventricular systolic function has worsened. He did have an echocardiogram on the 10 of December, which showed ejection fraction of 50% to 55% and no other significant abnormalities, except for some moderate mitral valve regurgitation. Review of his medications shows that he is already taking Coreg as well as diltiazem and we will need to determine or to discuss whether or not the patient will be a candidate for amiodarone. We will leave this up to the discretion of Dr. Morales when he sees the patient tomorrow. Job ID: [id number]
--- NOTE | 2020-01-07 08:55 | CON ---
DATE OF CONSULTATION: 01/06/2020 HISTORY OF PRESENT ILLNESS: The patient is a 64-year-old male, who most recently had a right-sided AV fistula placed for dialysis due to recently worsening end-stage renal disease, who fell at home and had a dehiscence of the surgical site. The patient did not seek medical attention for several days. However, due to increasing pain at the surgical site, eventually presented to the emergency department for evaluation. The patient was subsequently found to have an infected surgical site and sepsis. He was subsequently fluid resuscitated in the emergency department and was started on broad-spectrum antibiotics with multiple cultures pending, was stabilized and transferred to the telemetry floor where General Surgery and Infectious Disease were consulted for evaluation of the right-sided AV fistula and ongoing antibiotic regimen tailoring. At this time, 2/2 cultures revealed Pseudomonas susceptible to the patient's current antibiotic regimen, which consists of levofloxacin. Throughout the patient's hospitalization while in the telemetry floor, the patient was found to have multiple episodes of nonsustained ventricular tachycardia ranging from 4 to 27 beats. Upon further questioning by both nursing staff, the [facility] and Cardiology, the patient denies any symptoms significant for cardiovascular disease to include chest pain, shortness of breath, feelings of palpitation, nausea, vomiting, diaphoresis or syncopal symptoms. PAST MEDICAL HISTORY: Coronary artery disease, hypertension, hypercholesterolemia, diabetes type 2, end-stage renal disease requiring dialysis, peripheral vascular disease, status post bilateral AKA, and atrial fibrillation. PAST SURGICAL HISTORY: Four-vessel CABG, aortobifemoral bypass, bilateral over the knee amputation, bilateral iliac stent placement, unspecified back surgery, and AV fistula placement in the right antecubital fossa. MEDICATIONS: 1. Acetaminophen 1000 mg p.o. q.6 hours. 2. Albuterol 3 mL nebs q.i.d. p.r.n. 3. Amitriptyline 25 mg p.o. at bedtime. 4. Carvedilol 6.25 mg p.o. b.i.d. 5. Hypoglycemia protocol. 6. Diltiazem 30 mg p.o. q.6 hours. 7. Fentanyl 25 mcg q.8 hours p.r.n. 8. Heparin 5000 units subcutaneous b.i.d. 9. Mild sliding scale insulin. 10. Mild bedtime sliding scale insulin. 11. Levofloxacin 500 mg p.o. q.2 days. 12. Dulera 200 mcg/5 mcg two puffs b.i.d. 13. Nicotine 20 mg transdermal daily. 14. Zofran 4 mg p.o. q.6 hours p.r.n. 15. Zofran 4 mg IVP q.6 hours p.r.n. 16. Pregabalin 75 mg p.o. daily. 17. Rosuvastatin 20 mg p.o. daily. ALLERGIES: NONE. SOCIAL HISTORY: The patient currently denies alcohol or drug abuse, but does endorse ongoing tobacco abuse. Per chart review, the patient has a history of polysubstance abuse with patient's urine drug screen performed on 12/11/2019, positive for tricyclics, cocaine, and cannabinoids and a repeat urine drug screen performed on 12/30/2019, positive for opiates, tricyclics and cannabinoids. FAMILY HISTORY: Positive for coronary artery disease in multiple family members. REVIEW OF SYSTEMS: The patient continues to endorse intermittent [id number] right-sided pain in the antecubital fossa at the surgical site of his AV fistula. However, he denies any recent fevers, chills, persistent headaches, rhinorrhea, bloody nose, cough, shortness of breath, chest pain, palpitations, nausea, vomiting, or presyncopal episodes. PHYSICAL EXAMINATION: VITAL SIGNS: Reviewed. Temperature was found to be 98.5, pulse 92 beats per minute, respirations 16 breaths per minute, oxygen saturation 100% on room air, blood pressure 127/68. HEENT: Normocephalic, atraumatic head. Eyes were PERRLA with extraocular muscles and vision grossly intact. Nose revealed moist mucous membranes without septal deviation or erythema. Throat evaluation revealed moist mucous membranes without erythema or posterior exudate. NECK: Revealed no evidence of lymphadenopathy or tracheal deviation. CARDIOVASCULAR: Regular rate and rhythm without murmurs, clicks, gallops, or rubs. RESPIRATORY: Clear lungs to auscultation bilaterally without wheezes, rales, or rhonchi. ABDOMEN: Revealed normoactive bowel sounds x4 without organomegaly or noticeable tenderness to palpation. EXTREMITIES: Revealed bilateral AKAs, right-sided AV fistula placed in the right upper extremity and antecubital fossa, mildly cool right upper extremity with difficult to palpate. Pulses consistent with previous evaluations. +2 radial pulses on the left side. NEUROLOGICAL: Grossly intact. LABORATORY DATA: Per review of patient's tele-strip, during this hospitalization he has had multiple episodes of nonsustained ventricular tachycardia with beats ranging from 4 to 27 in a row. Chest x-ray performed on 12/26, which revealed no change in position of right-sided HemoSplit catheter, reduction in bilateral pleural effusions and bilateral lung changes. Repeat chest x-ray performed on 12/26, which revealed placement of left-sided central line without evidence of pneumothorax. Brain CT performed on 12/29, which revealed no acute intracranial abnormality. Chronic small-vessel ischemic changes and cerebral volume loss. Laboratory analysis revealed a white blood cell count of 10.8, hemoglobin 10.1, hematocrit 31.4, platelet count 326. Chem panel revealed sodium 134, potassium 4.1, chloride 95, carbon dioxide 23, BUN 64. Creatinine 8.52, increased from 2.65 on admission on 12/26. Glucose 130, with most recent POC glucose reading 262. Hemoglobin A1c 5.8. Lactic acid 1. Hemoglobin A1c 5.8, calcium 8.5, phosphorus 3.7, magnesium 2.1 up from a low of 1.5. CRP 0.9, down from a high of 8.86 on admission. Procalcitonin 2.79, down from a high of 9.24 on admission. TSH was 0.3844. ASSESSMENT: 1. Nonsustained ventricular tachycardia. 2. Sepsis secondary to infected surgical site, status post dehiscence. 3. Hyponatremia. 4. End-stage renal disease. 5. Type 2 diabetes. 6. Hypertension. 7. Congestive heart failure. 8. Chronic obstructive pulmonary disease. 9. Tobacco abuse. 10. Polysubstance abuse. PLAN: Due to patient's extensive cardiovascular history to include coronary artery disease, myocardial infarction, hypertension, diabetes, ongoing polysubstance abuse, it is possible the patient's nonsustained episodes of ventricular tachycardia or secondary the patient evolving coronary artery disease and will require further evaluation. I consulted with Dr. Cris Bailey, Cardiology, would recommend stress test at this time to evaluate for reversible causes of ischemia. If none are found, would likely recommend consulting Electrophysiology as patient's episodes of nonsustained ventricular tachycardia may be due to scar formation and may require ablation. Cardiology will be happy to follow this patient if desired. The aforementioned assessment and plan were discussed with Dr. Cris Bailey, Cardiology, and she is in agreement with the note as stated above. Job ID: [id number]
--- NOTE | 2020-01-07 12:18 | PRG ---
DATE OF SERVICE: 01/07/2020 SUBJECTIVE: A 64-year-old gentleman being seen for end-stage renal disease. The patient denied nausea, vomiting, or chest pain. OBJECTIVE: GENERAL: The patient is awake and alert. VITAL SIGNS: Afebrile, pulse 95, breathing at 16, blood pressure 139/76. HEENT: Head normocephalic and atraumatic. Eyes intact, no ulcers. Nose intact, no ulcers. Ears intact, no ulcers. NECK: Supple. No JVD. CHEST: Symmetrical and clear. CARDIOVASCULAR: Shows S1 and S2, no rub, no murmur. GASTROINTESTINAL: Abdomen is soft, bowel sounds positive. EXTREMITIES: Show no edema or ulcers. SKIN: Shows no rash or petechiae. MUSCULOSKELETAL: Shows no joint swelling or stiffness. GENITOURINARY: Shows no Weinberg or CVA tenderness. NEUROLOGIC: Motor intact. Cranial nerves intact. LABORATORY DATA: Reviewed. ASSESSMENT AND PLAN: 1. Stage 6 chronic kidney disease. Continue hemodialysis. 2. Hypertension, stable. 3. Anemia, stable. 4. Medication based on GFR, appropriate. Job ID: [id number]
[2020-01-07] MEDS: HumaLOG 300 UNITS/3 ML VIAL SC PRN (17:13)
[2020-01-07] MEDS: Amitriptyline HCl 25 MG TAB PO SCH (20:51)
[2020-01-07] MEDS: Rosuvastatin 20 MG TAB PO SCH (20:51)
[2020-01-08] MEDS: Acetaminophen 500 MG TAB PO SCH ×4 (05:01→20:57)
[2020-01-08] MEDS: Fentanyl 100 MCG/2 ML VIAL SLOW IVP PRN ×3 (05:02→20:56)
--- NOTE | 2020-01-08 06:20 | PDOC.FM ---
- Subjective Subjective: Patient doing well today. Pain is controlled in his arm. Tolerating PO, but is currently NPO for stress test today. Denies CP, SOB, dizziness, ANDERS. No events per tele overnight, no Vtach. - Objective MAR Reviewed: Yes Vital Signs & Weight: Vital Signs (12 hours) Temp Pulse Resp BP Pulse Ox 01/08/20 04:50 97.9 F 75 18 187/81 H 98 01/07/20 20:05 97.8 F 97 18 130/64 99 01/07/20 19:33 98 Weight Admit Weight 57.9 kg Weight 58.74 kg I&O: 01/06/20 01/07/20 01/08/20 06:59 06:59 06:59 Intake Total 1461 1194 720 Output Total 250 0 0 Balance 1211 1194 720 Result Diagrams: 01/06/20 08:55 01/08/20 06:53 Phys Exam - Physical Examination Constitutional: NAD HEENT: moist MMs Neck: full ROM Respiratory: no wheezing, clear to auscultation bilateral Cardiovascular: RRR, no significant murmur Gastrointestinal: soft, non-tender b/l AKA Psychiatric: normal affect, A&O x 3 Skin: normal turgor Dx/Plan - Plan Plan: #Sepsis 2/2 pseudomonas bacteremia -sepsis on admission, resolved -abx: levaquin q 2 days -Consult Dr. Mcnair, surgery: will need outpatient wound vac, f/u as outpatient in 2-3 weeks -Consult Dr. Werner, ID: levaquin po, continue until February 07, weekly CBC, CMP, CRP. Repeat BCx at 3, 6 and 8 weeks -CM: patient wants to go home with daughter in [place] as primary director long term care and out patient wound care. Everything set up locally as that is the only way all the services can be set up since they have to be in the same place as his dialysis. Patient and daughter aware that they will have to transfer dialysis and those other services to [place] as cannot set up dialysis in [place] for them. -consulted wound care, PT/OT #Nonsustained VTach -talking with tele techs, looks like patient has had episodes with runs of nonsustained, asymptomatic Vtach since admission -patient follows with Dr. Morales -cardiology consulted, appreciate the recs -stress test pending #Encephalopathy -Improved. likely due to medications. -Brain CT: no acute changes -continue to monitor mental status closely #Hyponatremia -resolved -will monitor #ESRD -HD on //SUN -Consult nephrology -consult CM - outpatient dialysis bed #Pre diabetic -Mild SSI -accucheck ACHS -patient not on home meds -A1C 5.8 #HTN -Continue home meds -Continue to monitor #HFpEF -echo 12/22: EF 50-55% -Continue home meds #COPD -Continue home meds #Tobacco abuse -Half pack per day smoker -encourage cessation DVT Ppx: Heparin Code: Full code. PCP- MARIE Carrington Diet: Renal, high protein Dispo: Admit to telemetry floor, inpatient status. Pending cardiology workup, will continue to monitor. LOS > 48hrs. Addendum - Attending - Attending Attestation Date/Time: 01/08/20 [id number] I personally evaluated the patient and discussed the management with Dr. Monterroso I agree with the History, Examination, Assessment and Plan documented above with any addition or exceptions noted below - Patient without complaints. Afebrile VSS A/P: 1) Sepsis secondary to Pseudomonas- improving; continue current abx. 2) ESRD- continue HD 3) Infected dialysis site- continue wound vac; arrangements made for outpatient wound care 4) Non-sustained Vtach- stress negative; appreciate cardiology recs. Will most likely need to discuss with EP.
[2020-01-08 07:22] LABS: ALT (SGPT) 21 U/L (8-55); AST (SGOT) 27 U/L (5-34); Albumin 2.9 g/dL (3.4-4.8); Alkaline Phosphatase 94 U/L (40-110); Anion Gap 19 mmol/L (10-20); BUN (Urea Nitrogen) 50 mg/dL (8.4-25.7); Bilirubin, Total 0.3 mg/dL (0.2-1.2); Calc. Creatinine Clearance 8 mL/min (70-130); Calcium 8.5 mg/dL (7.8-10.44); Carbon Dioxide 23 mmol/L (23-31); Chloride 96 mmol/L (98-107); Estimated GFR-MDRD 9; Globulin 3.4 g/dL (2.4-3.5); Glucose 112 mg/dL (80-115); Potassium 4.5 mmol/L (3.5-5.1); Protein, Total 6.3 g/dL (5.8-8.1); Sodium 133 mmol/L (136-145)
[2020-01-08] MEDS: Mometasone 200 MCG/Formoterol 5 MCG 120 PUFF INHALER INH SCH ×2 (08:14→20:01)
--- NOTE | 2020-01-08 11:41 | NM ---
NUCLEAR MEDICINE CARDIAC MYOCARDIAL PERFUSION SPECT EJECTION FRACTION STUDY WALL MOTION CINE: DATE: 01/08/2020 HISTORY: 64-year-old male smoker with coronary artery disease, diabetes mellitus, retention, dyslipidemia, pre sents with "nonsustained ventricular tachycardia" TECHNIQUE: Number of days: 2 Rest study: Technetium 99m-sestamibi (Cardiolite) dose:27.0 mCi Pharmacologic stress: Lexiscan dose: 0.4 mg Stress study: Technetium 99m-sestamibi (Cardiolite) dose:32.8 mCi FINDINGS: CARDIAC (MYOCARDIAL PERFUSION) SPECT No definite reversible myocardial perfusion defect is identified. EJECTION FRACTION STUDY Left ventricular EF = 36 % WALL MOTION CINE Paradoxical motion of posterior aspect of septum IMPRESSION: 1) no reversible ischemia identified. 2) significantly decreased left ventricular ejection fraction of 36%. 3) apparently paradoxical motion of posterior aspect of intraventricular septum.
--- NOTE | 2020-01-08 12:00 | PRG ---
DATE OF SERVICE: 01/08/2020 SUBJECTIVE: A 64-year-old male being seen for end-stage renal disease. The patient denies any nausea, vomiting, or chest pain. OBJECTIVE: GENERAL: The patient is awake, alert. VITAL SIGNS: Afebrile. Pulse 94, breathing 16, blood pressure 130/64. HEENT: Head normocephalic and atraumatic. Eyes intact, no ulcers. Nose intact, no ulcers. Ears intact, no ulcers. NECK: Supple. No JVD. CHEST: Symmetrical and clear. CARDIOVASCULAR: Shows S1 and S2, no rub, no murmur. GASTROINTESTINAL: Abdomen is soft, bowel sounds positive. EXTREMITIES: Show no edema or ulcers. SKIN: Shows no rash or petechiae. MUSCULOSKELETAL: Shows no joint swelling or stiffness. GENITOURINARY: Shows no Weinberg or CVA tenderness. NEUROLOGIC: Motor intact. Cranial nerves intact. LABORATORY DATA: Labs showed hemoglobin 10.1. ASSESSMENT AND PLAN: 1. Stage 6 chronic kidney disease. Plan dialysis. 2. Hypertension, stable. 3. Anemia, stable. Job ID: [id number]
[2020-01-08] MEDS ORDERED: Heparin 10,000 UNITS/ 10 ML VIAL ONE (12:24)
[2020-01-08] MEDS ORDERED: Regadenoson 0.4 MG/5 ML SYRINGE ONE (12:25)
[2020-01-08] MEDS: Carvedilol 6.25 MG TAB PO SCH ×2 (14:01→20:58)
[2020-01-08] MEDS: Heparin 5,000 UNITS/ML VIAL SC SCH ×2 (14:02→20:58)
[2020-01-08] MEDS: Pregabalin 75 MG CAP PO SCH (15:03)
[2020-01-08] MEDS: Polyethylene Glycol 3350 17 GM Packet PO SCH (15:03)
[2020-01-08] MEDS: HumaLOG 300 UNITS/3 ML VIAL SC PRN (16:41)
[2020-01-08] MEDS: Amitriptyline HCl 25 MG TAB PO SCH (20:58)
[2020-01-08] MEDS: Rosuvastatin 20 MG TAB PO SCH (20:58)
[2020-01-09] MEDS: Acetaminophen 500 MG TAB PO SCH ×3 (01:20→14:29)
[2020-01-09 05:01] LABS: #Basophils 0.1 thou/uL (0.0-0.2); #Eosinphils 0.2 thou/uL (0.0-0.7); #Lymphocytes 2.1 thou/uL (1.20-3.40); #Monocytes 1.3 thou/uL (0.11-0.59); #Neutrophils 9.4 thou/uL (1.40-6.50); %Basophils 0.6 % (0.0-1.0); %Eosinophils 1.4 % (0.0-10.0); %Monocytes 9.8 % (0.0-10.0); %Neutrophils 72.3 % (42.0-75.0); Hemoglobin 10.2 g/dL (14.0-18.0); Mean Corpuscular HGB CONC 32.4 g/dL (32.0-36.0); Mean Corpuscular Hemoglobin 30.6 pg (27.0-31.0); Mean Corpuscular Volume 94.4 fL (78.0-98.0); Mean Platelet Volume 9.1 fL (7.4-10.4); Platelet Count 257 thou/uL (130-400); RBC Distribution Width 15.7 % (11.5-14.5); Red Blood Cell (RBC) Count 3.33 mill/uL (4.70-6.10)
[2020-01-09 05:18] LABS: ALT (SGPT) 24 U/L (8-55); AST (SGOT) 36 U/L (5-34); Alkaline Phosphatase 104 U/L (40-110); Anion Gap 16 mmol/L (10-20); BUN (Urea Nitrogen) 26 mg/dL (8.4-25.7); Bilirubin, Total 0.3 mg/dL (0.2-1.2); Calc. Creatinine Clearance 13 mL/min (70-130); Calcium 8.7 mg/dL (7.8-10.44); Carbon Dioxide 26 mmol/L (23-31); Chloride 97 mmol/L (98-107); Estimated GFR-MDRD 14; Globulin 3.5 g/dL (2.4-3.5); Glucose 101 mg/dL (80-115); Potassium 4.5 mmol/L (3.5-5.1); Protein, Total 6.5 g/dL (5.8-8.1); Sodium 134 mmol/L (136-145)
[2020-01-09] MEDS: Fentanyl 100 MCG/2 ML VIAL SLOW IVP PRN (05:32)
--- NOTE | 2020-01-09 06:20 | PDOC.FM ---
- Subjective Subjective: Patient resting comfortably in bed. Ready to go home today. No complaints. - Objective MAR Reviewed: Yes Vital Signs & Weight: Vital Signs (12 hours) Temp Pulse Resp BP Pulse Ox 01/09/20 04:16 98.2 F 81 18 115/63 99 01/08/20 20:01 98 01/08/20 19:55 98.2 F 106 H 16 126/59 L 99 Weight Admit Weight 57.9 kg Weight 57.778 kg I&O: 01/07/20 01/08/20 01/09/20 06:59 06:59 06:59 Intake Total 1194 1020 600 Output Total 0 0 2500 Balance 1194 1020 -1900 Result Diagrams: 01/09/20 04:15 01/09/20 04:15 Phys Exam - Physical Examination Constitutional: NAD Neck: full ROM Respiratory: no wheezing, clear to auscultation bilateral Cardiovascular: RRR Gastrointestinal: soft, non-tender b/l AKA Neurological: moves all 4 limbs Psychiatric: A&O x 3 Dx/Plan - Plan Plan: #Sepsis 2/2 pseudomonas bacteremia -sepsis on admission, resolved -abx: levaquin q 2 days -Consult Dr. Mcnair, surgery: will need outpatient wound vac, f/u as outpatient in 2-3 weeks. Outpatient wound care set up. -Consult Dr. Werner, ID: levaquin po, continue until February 07, weekly CBC, CMP, CRP. Repeat BCx at 3, 6 and 8 weeks, order given to get drawn at dialysis. -consulted wound care, PT/OT #Nonsustained VTach -talking with tele techs, looks like patient has had episodes with runs of nonsustained, asymptomatic Vtach since admission -patient follows with Dr. Morales -cardiology consulted, appreciate the recs: -spoke with Dr. Morales yesterday, and he has cleared patient to discharge. Does not want repeat echo, even with stress test reading of EF of 36%, which is down from EF of 50-55% in 12/22. -stress test negative #Encephalopathy -Improved. likely due to medications. -Brain CT: no acute changes -continue to monitor mental status closely #Hyponatremia -resolved -will monitor #ESRD -HD on //SUN -Consult nephrology -consult CM - outpatient dialysis bed set up #Pre diabetic -Mild SSI -accucheck ACHS -patient not on home meds -A1C 5.8 #HTN -Continue home meds -Continue to monitor #HFpEF -echo 12/22: EF 50-55% -Continue home meds #COPD -Continue home meds #Tobacco abuse -Half pack per day smoker -encourage cessation DVT Ppx: Heparin Code: Full code. PCP- MARIE Carrington Diet: Renal, high protein Dispo: Admit to telemetry floor, inpatient status. LOS > 48hrs. Anticipate discharge today CM: patient wants to go home with daughter in [place] as primary insurance healthcare consultant and out patient wound care. Everything set up locally as that is the only way all the services can be set up since they have to be in the same place as his dialysis. Patient and daughter aware that they will have to transfer dialysis and those other services to [place] as CM cannot set up dialysis in [place] for them. Dr. Duran, nephrology, consulted about desire for transfer Addendum - Attending - Attending Attestation Date/Time: 01/09/20 [id number] I personally evaluated the patient and discussed the management with Dr. Monterroso I agree with the History, Examination, Assessment and Plan documented above with any addition or exceptions noted below - Patient without complaints. Afebrile VSS. A/P: 1) Sepsis secondary to Pseudomonas - resolved. 2) Infected dialysis site with Pseudomonas - continue current abx regimen. Follow-up labs as per ID recommendations; continue wound vac with follow-up in outpatient wound care clinic, 3) ESRD on HD- continue outpatient HD, 4) DM- stable. D/c home today.
[2020-01-09] MEDS: Mometasone 200 MCG/Formoterol 5 MCG 120 PUFF INHALER INH SCH (07:19)
[2020-01-09] MEDS: Pregabalin 75 MG CAP PO SCH (10:20)
[2020-01-09] MEDS: Carvedilol 6.25 MG TAB PO SCH (10:21)
[2020-01-09] MEDS: Heparin 5,000 UNITS/ML VIAL SC SCH (10:21)
[2020-01-09] MEDS: Polyethylene Glycol 3350 17 GM Packet PO SCH (10:21)
[2020-01-09] MEDS ORDERED: Amiodarone 200 MG TAB PO SCH (10:30)
--- NOTE | 2020-01-09 11:38 | PRG ---
DATE OF SERVICE: 01/09/2020 SUBJECTIVE: A 64-year-old male being seen for end-stage renal disease. The patient denied nausea, vomiting, or chest pain. OBJECTIVE: GENERAL: The patient is awake, alert. VITAL SIGNS: Pulse 75, breathing 16, blood pressure 115/63. HEENT: Head normocephalic and atraumatic. Eyes intact, no ulcers. Nose intact, no ulcers. Ears intact, no ulcers. NECK: Supple. No JVD. CHEST: Symmetrical and clear. CARDIOVASCULAR: Shows S1 and S2, no rub, no murmur. GASTROINTESTINAL: Abdomen is soft, bowel sounds positive. EXTREMITIES: Show no edema or ulcers. SKIN: Shows no rash or petechiae. MUSCULOSKELETAL: Shows no joint swelling or stiffness. GENITOURINARY: Shows no Weinberg or CVA tenderness. NEUROLOGIC: Motor intact. Cranial nerves intact. LABORATORY DATA: Labs showed hemoglobin 10.2. ASSESSMENT: 1. Stage 6 chronic kidney disease, stable. 2. Hypertension, stable. 3. Anemia, stable. 4. Outpatient dialysis has been set up. Job ID: [id number]
[2020-01-09 12:15] VITALS: BP 113/60; TEMP 97.8
--- NOTE | 2020-01-09 23:45 | DIS ---
DATE OF ADMISSION: 12/27/2019 DATE OF DISCHARGE: 01/09/2020 RESIDENT: Harper Monterroso MD, PGY-1. ADMITTING ATTENDING: Gregorio Moura NP. DISCHARGING ATTENDING: Angelica Kennedy MD. CONSULTS: Cardiology, Infectious Disease, Nephrology, Case Management, Wound Care. PROCEDURES: Include chest x-ray, which showed no change in the position of the right-sided HemoSplit catheter and reduction in the bilateral effusions and bibasilar lung changes. Brain CT, which showed no acute intracranial abnormality and chronic small-vessel ischemic changes and cerebral volume loss. Stress test, which showed ejection fraction of 36% and no definite reversible myocardial perfusion defect identified. Significantly decreased left ventricular ejection fraction 36% and apparently paradoxical motion of posterior aspect of intraventricular septum. PRIMARY DIAGNOSIS: Sepsis secondary to Pseudomonas bacteremia. SECONDARY DIAGNOSES: 1. Nonsustained ventricular tachycardia. 2. Encephalopathy secondary to polypharmacy. 3. Hyponatremia. 4. End-stage renal disease, on dialysis. 5. Prediabetes. 6. Hypertension. 7. Heart failure with preserved ejection fraction. 8. Chronic obstructive pulmonary disease. 9. Tobacco use. DISCHARGE MEDICATIONS: Include: 1. Lyrica 200 mg p.o. daily. 2. Nicotine patch 21 mg daily. 3. Amitriptyline 25 mg p.o. at night. 4. Amiodarone 200 mg p.o. daily. 5. Iron tablet 325 p.o. daily. 6. DuoNeb p.r.n. 7. Symbicort 2 puffs b.i.d. 8. Carvedilol 3.125 mg b.i.d. 9. Diltiazem 30 mg p.o. q.6. 10. Crestor 20 mg p.o. at bedtime. 11. Diltiazem 30 mg p.o. q.6. 12. Crestor 20 mg p.o. at bedtime. 13. Mucinex p.r.n. q.12 hours. 14. Levofloxacin 500 mg p.o. due 2 days until February 07. 15. [place] 5/325 tablet p.o. q.8 hours as needed for pain. Discontinued medications: 1. Lasix 40 mg p.o. daily. 2. Gabapentin 300 mg p.o. daily. HISTORY OF PRESENT ILLNESS/HOSPITAL COURSE: Please see brief progress note by Dr. Lindo on 01/04/2020. After this brief progress note, the patient was essentially stable, waiting for Case Management to arrange placement versus home with the patient's daughter and coordinating outpatient wound care and followup. It was noted that the patient was having nonsustained ventricular tachycardia, episodes where he was asymptomatic, and because of this, Cardiology was consulted and a stress test was performed with the results above. Cardiology gave the patient okay to be discharged home and was unconcerned at this time. DISPOSITION: Stable. DISCHARGE INSTRUCTIONS: 1. Location: Home with daughter. 2. Diet: Heart healthy diet. 3. Activity: Activity as tolerated. 4. Followup with outpatient wound care in [place] within the week, within the [facility] in 1 [address], [address] Mcnair in 2 to 3 weeks, and Dr. Carrington at [facility] within the week. Job ID: [id number]
[2020-01-10] MEDS ORDERED: Amiodarone 200 MG TAB PO SCH (09:00)
--- NOTE | 2020-01-10 15:31 | EKG ---
Test Reason : Blood Pressure : / mmHG Vent. Rate : 105 BPM Atrial Rate : 105 BPM P-R Int : 138 ms QRS Dur : 096 ms QT Int : 368 ms P-R-T Axes : -14 031 129 degrees QTc Int : 486 ms Sinus tachycardia RSR' or QR pattern in V1 suggests right ventricular conduction delay Cannot rule out Anterior infarct , age undetermined Abnormal ECG Confirmed by ANUJ FINLEY ([id number]), editor at large IVAN SIMS ([id number]) on 01/10/2020 3:30:45 PM Referred By: Confirmed By:ANUJ Lomeli
== END 2020-01-09 14:30 | disposition home or self-care (01) | DRG 862 ==
LOC: ERS 17:54 → 2NO 23:37
PROVIDERS: ADMIT Internal Medicine; ATTEND Student in an Organized Health Care Education/Training Program
PROC: 5A1D70Z Performance of Urinary Filtration, Intermittent, Less than 6 Hours Per Day (ICD-10-PCS; principal; 2019-12-27)
PROC: 02HV33Z Insertion of Infusion Device into Superior Vena Cava, Percutaneous Approach (ICD-10-PCS; 2019-12-27)
DX: T81.49XA Infection following a procedure, other surgical site, initial encounter (principal); A41.52 Sepsis due to Pseudomonas; N18.6 End stage renal disease; G92 Toxic encephalopathy; I47.2 Ventricular tachycardia; I50.32 Chronic diastolic (congestive) heart failure; I13.2 Hypertensive heart and chronic kidney disease with heart failure and with stage 5 chronic kidney disease, or end stage renal disease; E87.1 Hypo-osmolality and hyponatremia; F17.210 Nicotine dependence, cigarettes, uncomplicated; Z20.828 Contact with and (suspected) exposure to other viral communicable diseases; Y83.8 Other surgical procedures as the cause of abnormal reaction of the patient, or of later complication, without mention of misadventure at the time of the procedure; D50.9 Iron deficiency anemia, unspecified; E11.22 Type 2 diabetes mellitus with diabetic chronic kidney disease; J44.9 Chronic obstructive pulmonary disease, unspecified; E11.51 Type 2 diabetes mellitus with diabetic peripheral angiopathy without gangrene; I25.10 Atherosclerotic heart disease of native coronary artery without angina pectoris; D63.1 Anemia in chronic kidney disease; I25.5 Ischemic cardiomyopathy; T50.915A Adverse effect of multiple unspecified drugs, medicaments and biological substances, initial encounter; Z79.51 Long term (current) use of inhaled steroids; Z79.899 Other long term (current) drug therapy; Z89.612 Acquired absence of left leg above knee; Z89.611 Acquired absence of right leg above knee; Z99.2 Dependence on renal dialysis
CPT/HCPCS: 36415; 36416; 36556; 70450; 71045; 78452; 80048; 80053; 80202; 80306; 81003; 81015; 82140; 82805; 83036; 83605; 83735; 84100; 84145; 84443; 85007; 85025; 85027; 85652; 86140; 87040; 87070; 87077; 87086; 87149; 87186; 87205; 87635; 90935; 93005; 93010; 93017; 96365; 96367; 96375; 99292; A9500; G0257; J0692; J1644; J2270; J2310; J2785; J3010; J3370; J3475; J3490; J7030; J7050; U0003

== ENCOUNTER 2020-03-21 12:56 | Emergency (ER) | payer OTHER ==
[2020-03-21] MEDS ORDERED: HYDROcodone/Acetaminophen 5/325 mg Tablet ONE (15:06)
== END 2020-03-21 15:35 | disposition home or self-care (01) ==
LOC: ERS 12:56
DX: T82.7XXA Infection and inflammatory reaction due to other cardiac and vascular devices, implants and grafts, initial encounter (principal); L98.499 Non-pressure chronic ulcer of skin of other sites with unspecified severity; E11.22 Type 2 diabetes mellitus with diabetic chronic kidney disease; I13.2 Hypertensive heart and chronic kidney disease with heart failure and with stage 5 chronic kidney disease, or end stage renal disease; N18.6 End stage renal disease; I50.9 Heart failure, unspecified; E78.5 Hyperlipidemia, unspecified; F17.210 Nicotine dependence, cigarettes, uncomplicated; Z99.2 Dependence on renal dialysis; Z79.51 Long term (current) use of inhaled steroids; Z79.899 Other long term (current) drug therapy
CPT/HCPCS: 99283